=== PATIENT | male | born 1965 | race Caucasian/White ===

== ENCOUNTER → 2017-12-15 08:25 | Outpatient (CLI) | payer OTHER, SELFPAY ==
--- NOTE | 2017-12-15 08:25 | COLBX_PTH ---
PATIENT: PRADEEP VARGAS LOC: [facility] U#:[id number] AGE/SX: 59/M ROOM: RE12/15/[address]: Dr. Bo Heath MD : [id number] BED: DIS: SPEC #: [id number] RECD: 12/15/17 15:48 STATUS: HENNY LUCIAN #: [id number] GARO: 12/15/17 08:[address]: Bo Heath DEPT: SURGICAL PATHOLOGY RECD BY: Luly Willams ENTERED: 12/18/17 08:54 SP TYPE: COLON BX OTHR DR: Dr. Brittani Jordan, [facility] Tissues: COLON BIOPSY Procedures: Surgery Specimen Level IV HEADER OPERATION: Colon with biopsy PRE-OP DIAGNOSIS: Rectal pain TISSUE SUBMITTED: Hepatic flexure polyp, rule out adenoma MICROSCOPIC DIAGNOSIS Hepatic flexure polyp, biopsy: Fragments of colonic mucosa, no pathologic diagnosis. SJ:eliceo 9/11/18 MICROSCOPIC DESCRIPTION Slides are reviewed. GROSS DESCRIPTION Received in fixative is one container labeled with the patient's name and designated hepatic flexure. The specimen consists of multiple irregular fragments of light faust soft tissue that in aggregate measure 0.5 x 0.5 x 0.1 cm. The specimen is totally submitted in one cassette. / SJ:rg 12/18/17 TC:4 CPT: 13075
== END ==
PROVIDERS: Family Provider Internal Medicine; PCP Internal Medicine; Visit Provider Internal Medicine Gastroenterology
DX: K62.89 Other specified diseases of anus and rectum (principal)
CPT/HCPCS: 88305

== ENCOUNTER → 2018-01-12 10:04 | Outpatient (CLI) | payer OTHER, SELFPAY ==
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
== END ==
PROVIDERS: Family Provider Internal Medicine; PCP Internal Medicine; Referring Provider Nurse Practitioner; Visit Provider Nurse Practitioner
DX: K59.00 Constipation, unspecified (principal)
CPT/HCPCS: 74018

== ENCOUNTER 2018-03-04 14:28 | Emergency (ER) | payer OTHER, SELFPAY ==
[2018-03-04 14:29] VITALS: BP 152/94; PULSE 94; RESP 20; TEMP 36.6; O2SAT 97; BMI 31.1
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
[2018-03-04] MEDS: BACITRACIN 15 GM Tube 1 APPLIC TOPICAL (15:30)
[2018-03-04] MEDS: Diphth,Pertuss(Acell),Tet Vac 0.5 ML Vial IM (15:30)
== END 2018-03-04 17:09 | disposition home or self-care (01) ==
PROVIDERS: Emergency Provider Emergency Medicine; Family Provider Internal Medicine; PCP Internal Medicine
DX: T20.24XA Burn of second degree of nose (septum), initial encounter (principal); T20.212A Burn of second degree of left ear [any part, except ear drum], initial encounter; T28.0XXA Burn of mouth and pharynx, initial encounter; E78.00 Pure hypercholesterolemia, unspecified; F41.9 Anxiety disorder, unspecified; F32.9 Major depressive disorder, single episode, unspecified; Z72.0 Tobacco use; Z79.899 Other long term (current) drug therapy
CPT/HCPCS: 71046; 90715; 99283

== ENCOUNTER → 2018-03-20 09:21 | Outpatient (CLI) | payer OTHER, SELFPAY ==
[2018-03-04 14:29] VITALS: BMI 31.1
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
--- OUTSIDE RECORDS SUMMARY | 2018-05-06 08:30 | XMS RPT_ITS | Continuity of Care Document ---
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 regarding this patient's physical therapy, please feel free to call me at [phone]. Thank you for the referral of this patient. Sincerely, Maxwell degroot, PT, <Electronically signed by Maxwell Bhatti PT, ATC> 09/20/16 1145 CC: Brittani Jordan DO [facility] Signed 25-Aug-2016 Inital Evaluation (1) - PT Result: Comments: See Note; NOTES: [facility] Physical [facility] [address]. [address] [place], [place] [address] Fax REHABILITATION SERVICES INITIAL EVALUATION MR#: [id number] Acct: [id number] Name: PRADEEP VARGAS Rep #: [id number] : 1965 51 From: Maxwell Bhatti PT, ATC Referring Dr.: Brittani Jordan DO Status: REG RCR Insurance: [facility] Patient's Visit Information PRADEEP VARGAS is a 51 year old M referred to Physical Therapy by Brittani Jordan with a diagnosis of L shoulder pain. Date of Evaluation: 08/25/16 Physical Therapis t: Maxwell Bhatti PT, - Visit Plan Frequency: 2-3x /Week Duration: 3-6 weeks Plan: L shoulder rot cuff strengthening, AROM ex's, scap stab ex's, UBE, and HEP - Subjective Subjective: Pt reports his L shoulder has been sore for about 2 weeks. Pt reports his L UE will go numb when he is mowing the lawn. Pt reports his pain had an insidious onset in nature. Pt reports the nature of his job does requ kp him to have to use a lot of torquing motions. Pt works at [employer] and has for many years. 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 Pt notes he has occasional sleep diff secondary to pain. Pt reports he was unable to perform h is work durties and is off til the . 2/10 at rest, 6/10 at worst (work duties). Overhead activity really increases pain. - Pain L shoulder Pain Intensity (Out of 10): 2 Pain Intensity Range: 6 - Objective Neuro: B UE sensation is WNL to light touch. B bicepital reflex= 2/3. Palpation: Pt is very tender throughout the distribution of the supraspinatus tendon and the LHB tendon. No obvious defo rmity. ROM: R shoulder flex= 180, abd= 180, ER= 70, IR= WNL; L shoulder flex= 150, abd= 120, ER= 40, IR min hernandes. MMT: L shoulder flex and abd= 4-/5. All other B UE is 5/5 throughout. Special testing: Po s empty can, pos speeds. C/S repeated movements: No effect with protraction. Retraction provokes central spine pain - Goals Goal 1:: Decrease L shoulder pain x 50% to aid with IADL's Goal Time Frame: 4 -6 Weeks Goal 2:: Increase L shoulder strength x 1 grade to aid with work duties Goal Time Frame: 4-6 Weeks Goal 3:: ncrease L shoulder abd and flex ROM x 20-30 degrees to aid with overhead aciti vity G oal Time Frame: 2-4 Weeks Goal 4:: I with HEP Goal Time Frame: 4-6 Weeks - Rehabilitation Potential Physical Therapy Diagnosis: L shoulder pain, weakness, and limited ROM secondary to rot cuff syndrome Rehabilitation Potential: Good - Anticipated Interventions Patient/Client Instruction: Educate patient on: Condition, Plan of Care For the Purpose of:: To improve self management Therapeutic Exercise to Include: Strength training, Postural training, Active ROM, Scapular Strength/Stabilization For the Purpose of:: To decrease pain, To increase ROM, To improve muscle performance and motor function Cry otherapy (ice pack, ice massage): Yes Ultrasound (thermal/non thermal): Yes For the Purpose of:: To decrease pain Thank you for the opportunity to evaluate your patient. For Medicare and Medicare H [place] plans, please review the plan of care and approve it. It will need to be FAXED BACK to us at [phone] for Medicare purposes. Please let me know if there are questions or concerns regarding this plan of care. Physician Signature: Date: <Electronically signed by Maxwell Bhatti PT, ATC> 08/25/16 1838 CC: Brittani Jordan DO [facility] Signed For Medicare only, by signing this I certify the plan of care. Physicians Signature Date 05-Jun-2015 Chest PA and Lateral Result: Comments: See Note; NOTES: [facility] Imaging Services [address] [place] [address] [address] Chest PA and Lateral MR#: [id number] Acct: [id number] Name: Kamryn VARGAS Rep #: [id number] : 1965 M 49 From: Bradley Dias MD PCP: Brittani Jordan DO Status: REG CLI Study: Chest PA and Lateral Date of Exam: 06/05/15 Exam# [id number] Ordering Dr: Brittani Jordan DO STUDY: X-RAY CHEST REASON FOR EXAM: Male, 49 years old. History of asthma. TECHNIQUE: PA and lateral views of the chest. COMPARISON: Comparison is made with prior examination brent ed April 16, 2012. FINDINGS: The lungs are clear and expanded. There is no demonstrated pleural abnormality. Normal size heart. Normal mediastinum and jade. Normal visualized pulmonary arteries. Normal visualized aortic arch and descending thoracic aorta. There are diffuse degenerative changes of the visualized thoracic spine. Normal visualized ribs, clavicles, and shoulders. There is no demonstrated abnormality of the visualized soft tissue structures of the upper abdomen. IMPRESSION: Normal x-ray examinat ion of the chest. Electronically Signed: Bradley Dias MD at 10:43 EST Tel [phone], Service support [phone], RAD/Chest PA and Latera l IMPRESSION: Normal x-ray examination of the chest. Electronically Signed: Bradley Dias MD at 10:43 EST Tel [phone], Service support [phone], CC: Brittani Jordan DO [facility] Director: Signed 05-Jun-2015 ELECTROCARDIOGRAM, COMPLETE (ECG) (25051) Comments: nsr no acute chg Result: [MEASUREMENTS ANALYSIS] Date of Test: 06/05/2015 09:32:10; Heart Rate: 64; WA Interval: 128; QRS: 104; QT Interval: 402; Corrected QT Interval (QTc): 409; P Wave Drake: 45; QRS Wave Drake: 60; T Wave Drake : 51; Blood Pressure: 120/76 [ECG DIAGNOSTIC STATEMENTS] Date of Test: 06/05/2015 09:32:10; Summary: Sinus Rhythm WITHIN NORMAL LIMITS 05-Jun-2015 Spirometry (13281) Result: 29-Aug-2013 PT Discharge Summary Result: Comments: See Note; NOTES: [facility] Physical [facility] [address] [place] [address]. [address] [place] [address] Fax REHABILITATION SERVICES DISCHARGE SUMMARY MR#: [id number] Acct: [id number] Name: PRADEEP VARGAS Rep #: [id number] : 1965 48 From: Rodolfo Starr Referring Dr.: Brittani Jordan DO Status: PRE RCR Eval Date: Dischar ge Date: DATE OF SERVICE: The patient by the name of Pradeep Vargas was seen in our clinic with a diagnosis of low back muscle spasm. The patient received initial evaluation only. We educated the p atient on his condition. Modalities provided. We educated on Ben exercises. We attempted to call the patient, but he did not return to physical therapy after his first initial consultation aft er he received therapy for continuation of therapy. He is discharged from our care. Otherwise, once again, thank you for this referral. Rodolfo Starr PT T: ADITYA JOB: [id number] <Electr onically signed by Rodolfo Starr > 08/29/13 1412 CC: Signed 30-Jul-2013 Abdomen/Pelvis without Cont Result: Comments: See Note; NOTES: [facility] Imaging Services [address] [place] [address] CAT Scan Report MR#: [id number] Acct: [id number] Name: PRADEEP VARGAS Rep #: [id number] : 1965 M 48 From: Jimmie Garcia MD PCP: Brittani Jordan DO Status: REG CLI Study: Abdomen/Pelvis without Cont Date of Exam: 07/30/13 Exam# [id number] Ordering Dr: Brittani Jordan DO STUDY : CT ABDOMEN AND PELVIS WITHOUT CONTRAST REASON FOR EXAM: Male, 48 years old. Back and flank pain RADIATION DOSAGE (If Supplied By Facility): CTDIvol = ( ) mGy, DLP = ( ) mGycm TECHNIQUE: Transax ial images were obtained from the dome of the diaphragm to the symphysis pubis without oral contrast, and without intravenous contrast. Sagittal and coronal images were reconstructed. COMPARISON: No ne. FINDINGS: The visualized lung bases are unremarkable. The visualized portions of the heart are within normal limits. Normal liver. Normal gallbladder and e xtrahepatic biliary system. Normal spleen. Normal pancreas. Normal bilateral adrenal glands. Normal right kidney. Normal left kidney. Normal visualized stomach. There is an ileus of the small int estine. Normal colon. The appendix is visualized and appears normal. Appendix best seen on axial image 105 Normal abdominal aorta. Normal inferior vena cava. Scattered subcentimeter mesenteric and retroperitoneal lymph nodes Normal urinary bladder. Normal abdominal wall. Normal osseous structures. IMPRESSION: No obstructive uropathy Small bowel ileus No suspicious solid organ abnormalities No CT evidence of an acute inflammatory process Electronically Signed: Brandan Garcia MD at 10:27 EDT , Service support , CC: Brittani Jordan DO [facility] Director: Signed 29-Jul-2013 Inital Evaluation - PT Result: Comments: See Note; NOTES: [facility] Physical [facility] [address] [place] [address] Fax REHABILITATION SERVICES INITIAL EVALUATION MR#: [id number] Acct: [id number] Name: PRADEEP VARGAS Rep #: [id number] : 1965 48 From: Rodolfo Starr Referring Dr.: Brittani Jordan DO Status: REG RCR Insurance: [employer] Eval Date: DATE OF SERVICE: REFERRING PHYSICIAN: Dr. Brittani Jordan. SUBJECTIVE: This patient by the name of Pradeep Vargas who was born on 1965 was referred to physical [facility] with diagnoses of muscle spasm and low back pain. This patient has a history of low back pain for many years, but most recently, this past week, the patient developed low back pain, as well as some stiffness. He woke up in the morning with some stiffness in his low back and radiated to his pelvis area. He states that he has 5/10 pain today. He denies numbness/tingling. Sitting makes it wor se. Bending makes it worse. Walking makes it worse. Standing makes it somewhat better. He sleeps on his belly, but it will disturb his sleep, on a firm mattress. He has no treatments. History of mu scle spasms, straining may increase his back pain. Gait is normal. Bladder is normal. No abnormal night pain, unexplained weight loss, major accidents. No x -rays were done. No medication was prescri bed, except for Valium and some anti- inflammatory medication. Goals are to have no more back pain and get stronger. PAST MEDICAL HISTORY: Elevated cholesterol. SOCIAL HISTORY: . 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 OBJECTIVE: OBSERVATION OF POSTURE: Sits with reduced lordosis, rounded shoulders. PALPATION: Some tenderness around right lumbar paraspinals, com pared to left, multifidus, as well as, rectus spina muscle group. NEUROLOGICAL: Denies numbness/tingling. Myotomes are intact. Reflexes symmetrically elicited L3-L4, L4-L5, L5-S1. FLEXIBILITY: Ham strings minimal loss. Piriformis minimal loss. STRENGTH: Lower extremities, quadriceps, hamstrings, dorsiflexors, plantar flexors, great toe extensors, hip flexors are 5/5. Myotomes are equally intac t. Movement loss of lumbar spine, flexion minimal loss, extension within functional limits, side glides minimal loss. PRETEST PAIN: Symmtrical lumbosacral pain or lumbar pain. Flexion standing incr eases symptoms slightly worse. Extension in standing decreased symptoms, although stiffness at end range, although no better, stiffness at end range, for repeat extension lying, no better. There is no mechanical response with increased range of motion. Symmetries PSIS, ASIS, iliac crest are symmetrically intact. Straight leg raise is negative. Intact heel-toe walking, negative. PROVISIONAL DIAGNOSIS: The patient appears to have a symmetrical central derangement with symptoms consistent with bending over makes symptoms worse. PROBLEM LIST: 1. Decreased home exercise program. 2. Decr eased posture body mechanics. 3. Increased low back pain. 4. Limitation of normal functional activities, standing, walking, job demands, especially ____ in a forward position. 5. Decreased prophyla xis. GOALS: 1. The patient will be independent with home exercise program to self-manage symptoms. 2. The patient will be independent with posture body mechanics with all lifting techniques. 3. T he patient to reduce low back pain by at least 50 percent or greater to improve function. PLAN: Plan of care was reviewed with the patient. We discussed with the patient basic anatomy of the lumba r spine, mechanism of pain. We discussed with the patient the cumulative effect of flexion and how it compromises the back. We educated the patient to perform repeat extension in lying or standing b ack extensions x10 repetitions every hour to monitor symptoms. Then, the patient received stimulation moist hot pack x15 minutes. Plan is to see this patient twice a week for 4 weeks focusing on home exercise program, posture exercises, dynamic lumbar stabilization, abdominal back strengthening, Ben exercise, manual therapy, modalities, and patient education. Rodolfo Starr PT T: ADITYA JOB: [id number] <Electronically signed by Rodolfo Starr > 07/29/13 1552 CC: Signed For Medicare only, by signing this I certify the plan of care. Physicians Signature Date 29-Jul-2013 L/S Spine Min 4 Views Result: Comments: See Note; NOTES: [facility] Imaging Services [address] [place] [address] Radiology Report MR#: [id number] Acct: [id number] Name: PRADEEP VARGAS Rep #: [id number] : 1965 M 48 From: Jimmie Garcia MD PCP: Brittani Jordan DO Status: REG CLI Study: L/S Spine Min 4 Views Date of Exam: 07/29/13 Exam# [id number] Ordering Dr: Janneth Davenport STUDY: X-RAY - LUM BAR SPINE REASON FOR EXAM: Male, 48 years old. Low back pain TECHNIQUE: 5 view(s) of the lumbar spine were obtained. COMPARISON: None FINDINGS: Normal lumba r lordosis. There is no substantial scoliosis. There is a normal alignment of the vertebrae. Normal vertebral bodies and endplates. Normal disc space heights. There is no demonstrated fracture. Evid ence of limbus vertebra at L3-L4 and L5. The soft tissue structures are unremarkable. 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 Comments: 08/08/11 Status: Active Smoking Status Name Dates Details Former smoker Vital Signs Date Test Result Details :43 Temperature 96.8 f Comments: Method: Temporal Pulse 66 /min Comments: Pattern: Regular Respiration Rate 16 /min Comments: Pattern: Unlabored O2 SAT 99 % Comments: Room air BP Systolic 134 mm[Hg] Comments: Patient Position: Sitting; Cuff Location: Left Arm; Cuff Size: Standard BP Diastolic 84 mm[Hg] Comments: Patient Position: Sitting; Cuff Location: Left Arm; Cuff Size: Standard Weight 182.5 lb Height 67 in Body Mass Index Calculated 28.58 kg/m2 Body Surface Area Calculated 1.95 m2 :00 Temperature 98.2 f Comments: Method: Temporal Pulse 70 /min Comments: Pattern: Regular Respiration Rate 16 /min Comments: Pattern: Unlabored O2 SAT 94 % Comments: Room air BP Systolic 134 mm[Hg] Comments: Patient Position: Sitting; Cuff Location: Left Arm; Cuff Size: Standard BP Diastolic 70 mm[Hg] Comments: Patient Position: Sitting; Cuff Location: Left Arm; Cuff Size: Standard Weight 182.5 lb Height 67 in Body Mass Index Calculated 28.58 kg/m2 Body Surface Area Calculated 1.95 m2 :49 Pulse 80 /min Comments: Pattern: Regular Respiration Rate 18 /min Comments: Pattern: Unlabored O2 SAT 98 % Comments: Room air BP Systolic 128 mm[Hg] Comments: Patient Position: Sitting; Cuff Location: Left Arm; Cuff Size: Standard BP Diastolic 82 mm[Hg] Comments: Patient Position: Sitting; Cuff Location: Left Arm; Cuff Size: Standard Weight 182.5 lb Height 67 in Body Mass Index Calculated 28.58 kg/m2 Body Surface Area Calculated 1.95 m2 :57 Temperature 98.1 f Pulse 88 /min Comments: Pattern: Regular Respiration Rate 16 /min Comments: Pattern: Unlabored O2 SAT 96 % Comments: Room air BP Systolic 124 mm[Hg] Comments: Patient Position: Sitting; Cuff Location: Left Arm; Cuff Size: Standard BP Diastolic 78 mm[Hg] Comments: Patient Position: Sitting; Cuff Location: Left Arm; Cuff Size: Standard Weight 190.375 lb Height 67 in Body Mass Index Calculated 29.82 kg/m2 Body Surface Area Calculated 1.98 m2 [id number] Pulse 84 /min Comments: Pattern: Regular Respiration Rate 18 /min Comments: Pattern: Unlabored O2 SAT 98 % Comments: Room air BP Systolic 162 mm[Hg] Comments: Patient Position: Sitting; Cuff Location: Left Arm; Cuff Size: Large BP Diastolic 82 mm[Hg] Comments: Patient Position: Sitting; Cuff Location: Left Arm; Cuff Size: Large Weight 190.375 lb Height 67 in Body Mass Index Calculated 29.82 kg/m2 Body Surface Area Calculated 1.98 m2 :19 Temperature 97.5 f Pulse 76 /min Comments: Pattern: Regular Respiration Rate 16 /min Comments: Pattern: Unlabored O2 SAT 98 % Comments: Room air BP Systolic 130 mm[Hg] Comments: Patient Position: Sitting; Cuff Location: Left Arm; Cuff Size: Standard BP Diastolic 84 mm[Hg] Comments: Patient Position: Sitting; Cuff Location: Left Arm; Cuff Size: Standard Weight 188.125 lb Height 67 in Body Mass Index Calculated 29.46 kg/m2 Body Surface Area Calculated 1.97 m2 :26 Pulse 81 /min Comments: Pattern: Regular Respiration Rate 18 /min Comments: Pattern: Unlabored O2 SAT 96 % Comments: Room air BP Systolic 138 mm[Hg] Comments: Patient Position: Sitting; Cuff Location: Left Arm; Cuff Size: Large BP Diastolic 80 mm[Hg] Comments: Patient Position: Sitting; Cuff Location: Left Arm; Cuff Size: Large Weight 188 lb Height 67 in Body Mass Index Calculated 29.44 kg/m2 Body Surface Area Calculated 1.97 m2 :29 Pulse 84 /min Comments: Pattern: Regular Respiration Rate 18 /min Comments: Pattern: Unlabored O2 SAT 97 % Comments: Room air BP Systolic 116 mm[Hg] Comments: Patient Position: Sitting; Cuff Location: Left Arm; Cuff Size: Standard BP Diastolic 80 mm[Hg] Comments: Patient Position: Sitting; Cuff Location: Left Arm; Cuff Size: Standard Weight 185.375 lb Height 67 in Body Mass Index Calculated 29.03 kg/m2 Body Surface Area Calculated 1.96 m2 :36 Temperature 98.2 f Pulse 91 /min Comments: Pattern: Regular Respiration Rate 17 /min Comments: Pattern: Unlabored O2 SAT 96 % Comments: Room air BP Systolic 106 mm[Hg] Comments: Patient Position: Sitting; Cuff Location: Left Arm; Cuff Size: Standard BP Diastolic 76 mm[Hg] Comments: Patient Position: Sitting; Cuff Location: Left Arm; Cuff Size: Standard Weight 185.375 lb Height 67 in Body Mass Index Calculated 29.03 kg/m2 Body Surface Area Calculated 1.96 m2 :10 Temperature 98 f Pulse 65 /min Comments: Pattern: Regular Respiration Rate 16 /min Comments: Pattern: Unlabored O2 SAT 98 % Comments: Room air BP Systolic 130 mm[Hg] Comments: Patient Position: Sitting; Cuff Location: Left Arm; Cuff Size: Standard BP Diastolic 72 mm[Hg] Comments: Patient Position: Sitting; Cuff Location: Left Arm; Cuff Size: Standard Weight 187.25 lb Height 67 in Body Mass Index Calculated 29.33 kg/m2 Body Surface Area Calculated 1.97 m2 :54 Pulse 65 /min Comments: Pattern: Regular Respiration Rate 18 /min Comments: Pattern: Unlabored O2 SAT 99 % Comments: Room air BP Systolic 128 mm[Hg] Comments: Patient Position: Sitting; Cuff Location: Left Arm; Cuff Size: Large BP Diastolic 80 mm[Hg] Comments: Patient Position: Sitting; Cuff Location: Left Arm; Cuff Size: Large Weight 184.25 lb Height 67 in Body Mass Index Calculated 28.86 kg/m2 Body Surface Area Calculated 1.95 m2 :00 Temperature 97.9 f Comments: Method: Temporal Pulse 84 /min Comments: Pattern: Regular Respiration Rate 18 /min Comments: Pattern: Unlabored O2 SAT 97 % Comments: Room air BP Systolic 120 mm[Hg] Comments: Patient Position: Sitting; Cuff Location: Left Arm; Cuff Size: Large BP Diastolic 82 mm[Hg] Comments: Patient Position: Sitting; Cuff Location: Left Arm; Cuff Size: Large Weight 186.375 lb Height 67 in Body Mass Index Calculated 29.19 kg/m2 Body Surface Area Calculated 1.96 m2 :10 Temperature 97.8 f Pulse 89 /min Comments: Pattern: Regular Respiration Rate 18 /min Comments: Pattern: Unlabored O2 SAT 98 % Comments: Room air BP Systolic 132 mm[Hg] Comments: Patient Position: Sitting; Cuff Location: Left Arm; Cuff Size: Standard BP Diastolic 84 mm[Hg] Comments: Patient Position: Sitting; Cuff Location: Left Arm; Cuff Size: Standard Weight 186.375 lb Height 67 in Body Mass Index Calculated 29.19 kg/m2 Body Surface Area Calculated 1.96 m2 :15 Pulse 75 /min Comments: Pattern: Regular Respiration Rate 18 /min Comments: Pattern: Unlabored O2 SAT 96 % Comments: Room air BP Systolic 120 mm[Hg] Comments: Patient Position: Sitting; Cuff Location: Left Arm; Cuff Size: Large BP Diastolic 76 mm[Hg] Comments: Patient Position: Sitting; Cuff Location: Left Arm; Cuff Size: Large Weight 186.375 lb Height 67 in Body Mass Index Calculated 29.19 kg/m2 Body Surface Area Calculated 1.96 m2 :05 Temperature 97.8 f Pulse 91 /min Comments: Pattern: Regular Respiration Rate 18 /min Comments: Pattern: Unlabored O2 SAT 96 % Comments: Room air BP Systolic 124 mm[Hg] Comments: Patient Position: Sitting; Cuff Location: Left Arm; Cuff Size: Standard BP Diastolic 82 mm[Hg] Comments: Patient Position: Sitting; Cuff Location: Left Arm; Cuff Size: Standard Weight 184.125 lb Height 67 in Body Mass Index Calculated 28.84 kg/m2 Body Surface Area Calculated 1.95 m2 :11 Temperature 99.2 f Pulse 88 /min Comments: Pattern: Regular Respiration Rate 17 /min Comments: Pattern: Unlabored O2 SAT 98 % Comments: Room air BP Systolic 124 mm[Hg] Comments: Patient Position: Sitting; Cuff Location: Left Arm; Cuff Size: Standard BP Diastolic 82 mm[Hg] Comments: Patient Position: Sitting; Cuff Location: Left Arm; Cuff Size: Standard Weight 184.125 lb Height 67 in Body Mass Index Calculated 28.84 kg/m2 Body Surface Area Calculated 1.95 m2 :20 Pulse 70 /min Comments: Pattern: Regular Respiration Rate 20 /min Comments: Pattern: Unlabored O2 SAT 98 % Comments: Room air BP Systolic 138 mm[Hg] Comments: Patient Position: Sitting; Cuff Location: Left Arm; Cuff Size: Large BP Diastolic 80 mm[Hg] Comments: Patient Position: Sitting; Cuff Location: Left Arm; Cuff Size: Large Weight 184.125 lb Height 67 in Body Mass Index Calculated 28.84 kg/m2 Body Surface Area Calculated 1.95 m2 :35 Temperature 96.6 f Comments: Method: Oral Pulse 72 /min Comments: Pattern: Regular Respiration Rate 18 /min Comments: Pattern: Unlabored O2 SAT 98 % Comments: Room air BP Systolic 120 mm[Hg] Comments: Patient Position: Sitting; Cuff Location: Left Arm; Cuff Size: Large BP Diastolic 78 mm[Hg] Comments: Patient Position: Sitting; Cuff Location: Left Arm; Cuff Size: Large Weight 184.1875 lb Height 67 in Body Mass Index Calculated 28.85 kg/m2 Body Surface Area Calculated 1.95 m2 :15 Temperature 98.8 f Comments: Method: Oral Pulse 90 /min Comments: Pattern: Regular Respiration Rate 16 /min O2 SAT 98 % Comments: Room air BP Systolic 130 mm[Hg] Comments: Patient Position: Sitting; Cuff Location: Left Arm; Cuff Size: Standard BP Diastolic 82 mm[Hg] Comments: Patient Position: Sitting; Cuff Location: Left Arm; Cuff Size: Standard Weight 178.4375 lb Height 67 in Body Mass Index Calculated 27.95 kg/m2 Body Surface Area Calculated 1.93 m2 :53 Temperature 98.1 f Comments: Method: Oral Pulse 80 /min Comments: Pattern: Regular Respiration Rate 16 /min Comments: Pattern: Unlabored O2 SAT 98 % Comments: Room air BP Systolic 114 mm[Hg] Comments: Patient Position: Sitting; Cuff Location: Left Arm; Cuff Size: Standard BP Diastolic 70 mm[Hg] Comments: Patient Position: Sitting; Cuff Location: Left Arm; Cuff Size: Standard Weight 178.4375 lb Height 67 in Body Mass Index Calculated 27.95 kg/m2 Body Surface Area Calculated 1.93 m2 :19 Temperature 97.8 f Comments: Method: Oral Pulse 76 /min Comments: Pattern: Regular Respiration Rate 16 /min O2 SAT 98 % Comments: Room air BP Systolic 120 mm[Hg] Comments: Patient Position: Sitting; Cuff Location: Left Arm; Cuff Size: Standard BP Diastolic 70 mm[Hg] Comments: Patient Position: Sitting; Cuff Location: Left Arm; Cuff Size: Standard Weight 182.4375 lb Height 67 in Body Mass Index Calculated 28.57 kg/m2 Body Surface Area Calculated 1.94 m2 :13 Temperature 97.6 f Comments: Method: Temporal Pulse 86 /min Comments: Pattern: Regular Respiration Rate 16 /min Comments: Pattern: Unlabored O2 SAT 99 % Comments: Room air BP Systolic 116 mm[Hg] Comments: Patient Position: Sitting; Cuff Location: Left Arm; Cuff Size: Standard BP Diastolic 74 mm[Hg] Comments: Patient Position: Sitting; Cuff Location: Left Arm; Cuff Size: Standard Weight 182.4375 lb Height 67 in Body Mass Index Calculated 28.57 kg/m2 Body Surface Area Calculated 1.94 m2 :30 Temperature 98.1 f Comments: Method: Oral Pulse 18 /min Comments: Pattern: Regular Respiration Rate 20 /min Comments: Pattern: Unlabored O2 SAT 98 % Comments: Room air BP Systolic 130 mm[Hg] Comments: Patient Position: Sitting; Cuff Location: Left Arm; Cuff Size: Large BP Diastolic 72 mm[Hg] Comments: Patient Position: Sitting; Cuff Location: Left Arm; Cuff Size: Large Weight 182.4375 lb Height 67 in Body Mass Index Calculated 28.57 kg/m2 Body Surface Area Calculated 1.94 m2 :47 Temperature 100.2 f Comments: Method: Oral Pulse 89 /min Comments: Pattern: Regular Respiration Rate 16 /min Comments: Pattern: Unlabored O2 SAT 98 % Comments: Room air BP Systolic 122 mm[Hg] Comments: Patient Position: Sitting; Cuff Location: Left Arm; Cuff Size: Standard BP Diastolic 68 mm[Hg] Comments: Patient Position: Sitting; Cuff Location: Left Arm; Cuff Size: Standard Weight 182.4375 lb Height 67 in Body Mass Index Calculated 28.57 kg/m2 Body Surface Area Calculated 1.94 m2 :32 Temperature 99.8 f Comments: Method: Temporal Pulse 76 /min Comments: Pattern: Regular Respiration Rate 16 /min Comments: Pattern: Unlabored O2 SAT 98 % Comments: Room air BP Systolic 140 mm[Hg] Comments: Patient Position: Sitting; Cuff Location: Left Arm; Cuff Size: Standard BP Diastolic 74 mm[Hg] Comments: Patient Position: Sitting; Cuff Location: Left Arm; Cuff Size: Standard Weight 182.4375 lb Height 67 in Body Mass Index Calculated 28.57 kg/m2 Body Surface Area Calculated 1.94 m2 :28 Pulse 60 /min Comments: Pattern: Regular Respiration Rate 18 /min Comments: Pattern: Unlabored BP Systolic 122 mm[Hg] Comments: Patient Position: Sitting; Cuff Location: Left Arm; Cuff Size: Large BP Diastolic 78 mm[Hg] Comments: Patient Position: Sitting; Cuff Location: Left Arm; Cuff Size: Large Weight 182.4375 lb Height 67 in Body Mass Index Calculated 28.57 kg/m2 Body Surface Area Calculated 1.94 m2 :49 Temperature 98.7 f Comments: Method: Oral Pulse 88 /min Comments: Pattern: Regular Respiration Rate 20 /min Comments: Pattern: Unlabored BP Systolic 122 mm[Hg] Comments: Patient Position: Sitting; Cuff Location: Left Arm; Cuff Size: Large BP Diastolic 60 mm[Hg] Comments: Patient Position: Sitting; Cuff Location: Left Arm; Cuff Size: Large Weight 200.25 lb Height 67 in Body Mass Index Calculated 31.36 kg/m2 Body Surface Area Calculated 2.02 m2 :36 Comments: up 9 pounds Temperature 97.9 f Comments: Method: Oral Pulse 70 /min Comments: Pattern: Regular Respiration Rate 18 /min Comments: Pattern: Unlabored BP Systolic 112 mm[Hg] Comments: Patient Position: Sitting; Cuff Location: Left Arm; Cuff Size: Standard BP Diastolic 74 mm[Hg] Comments: Patient Position: Sitting; Cuff Location: Left Arm; Cuff Size: Standard Weight 193.2 lb Height 67 in Body Mass Index Calculated 30.26 kg/m2 Body Surface Area Calculated 1.99 m2 :09 Pulse 60 /min Comments: Pattern: Regular Respiration Rate 18 /min Comments: Pattern: Unlabored BP Systolic 122 mm[Hg] Comments: Patient Position: Sitting; Cuff Location: Left Arm; Cuff Size: Large BP Diastolic 78 mm[Hg] Comments: Patient Position: Sitting; Cuff Location: Left Arm; Cuff Size: Large Weight 184.0625 lb Height 67 in Body Mass Index Calculated 28.83 kg/m2 Body Surface Area Calculated 1.95 m2 :15 Pulse 80 /min Comments: Pattern: Regular Respiration Rate 20 /min Comments: Pattern: Unlabored BP Systolic 138 mm[Hg] Comments: Patient Position: Sitting; Cuff Location: Left Arm; Cuff Size: Large BP Diastolic 70 mm[Hg] Comments: Patient Position: Sitting; Cuff Location: Left Arm; Cuff Size: Large Weight 195.0625 lb Height 67 in Body Mass Index Calculated 30.55 kg/m2 Body Surface Area Calculated 2 m2 :35 Temperature 98.6 f Comments: Method: Oral Pulse 68 /min Comments: Pattern: Regular Respiration Rate 18 /min Comments: Pattern: Unlabored BP Systolic 126 mm[Hg] Comments: Patient Position: Sitting; Cuff Location: Left Arm; Cuff Size: Standard BP Diastolic 82 mm[Hg] Comments: Patient Position: Sitting; Cuff Location: Left Arm; Cuff Size: Standard Weight 198.9 lb Height 67 in Body Mass Index Calculated 31.15 kg/m2 Body Surface Area Calculated 2.02 m2 :43 Pulse 60 /min Comments: Pattern: Regular Respiration Rate 20 /min Comments: Pattern: Unlabored BP Systolic 122 mm[Hg] Comments: Patient Position: Sitting; Cuff Location: Left Arm; Cuff Size: Large BP Diastolic 70 mm[Hg] Comments: Patient Position: Sitting; Cuff Location: Left Arm; Cuff Size: Large Weight 195.125 lb Height 67 in Body Mass Index Calculated 30.56 kg/m2 Body Surface Area Calculated 2 m2 :34 Temperature 97.9 f Comments: Method: Oral Pulse 74 /min Comments: Pattern: Regular Respiration Rate 18 /min Comments: Pattern: Unlabored BP Systolic 118 mm[Hg] Comments: Patient Position: Sitting; Cuff Location: Left Arm; Cuff Size: Standard BP Diastolic 78 mm[Hg] Comments: Patient Position: Sitting; Cuff Location: Left Arm; Cuff Size: Standard Weight 191 lb Height 67 in Body Mass Index Calculated 29.91 kg/m2 Body Surface Area Calculated 1.98 m2 :26 Temperature 97.9 f Comments: Method: Oral Pulse 80 /min Comments: Pattern: Regular Respiration Rate 16 /min Comments: Pattern: Unlabored BP Systolic 120 mm[Hg] Comments: Patient Position: Sitting; Cuff Location: Left Arm; Cuff Size: Standard BP Diastolic 84 mm[Hg] Comments: Patient Position: Sitting; Cuff Location: Left Arm; Cuff Size: Standard Weight 196.5 lb Height 67 in Body Mass Index Calculated 30.78 kg/m2 Body Surface Area Calculated 2.01 m2 :39 Pulse 80 /min Comments: Pattern: Regular Respiration Rate 20 /min Comments: Pattern: Unlabored BP Systolic 118 mm[Hg] Comments: Patient Position: Sitting; Cuff Location: Left Arm; Cuff Size: Large BP Diastolic 80 mm[Hg] Comments: Patient Position: Sitting; Cuff Location: Left Arm; Cuff Size: Large Weight 196.5 lb Height 67 in Body Mass Index Calculated 30.78 kg/m2 Body Surface Area Calculated 2.01 m2 :27 Pulse 68 /min Comments: Pattern: Regular Respiration Rate 18 /min Comments: Pattern: Unlabored BP Systolic 122 mm[Hg] Comments: Patient Position: Sitting; Cuff Location: Left Arm; Cuff Size: Large BP Diastolic 82 mm[Hg] Comments: Patient Position: Sitting; Cuff Location: Left Arm; Cuff Size: Large Weight 197.5 lb Height 67 in Body Mass Index Calculated 30.93 kg/m2 Body Surface Area Calculated 2.01 m2 :33 Pulse 68 /min Comments: Pattern: Regular Respiration Rate 20 /min Comments: Pattern: Unlabored BP Systolic 124 mm[Hg] Comments: Patient Position: Sitting; Cuff Location: Left Arm; Cuff Size: Large BP Diastolic 82 mm[Hg] Comments: Patient Position: Sitting; Cuff Location: Left Arm; Cuff Size: Large Weight 197.1875 lb Height 67 in Body Mass Index Calculated 30.88 kg/m2 Body Surface Area Calculated 2.01 m2 :31 Pulse 64 /min Comments: Pattern: Regular Respiration Rate 20 /min Comments: Pattern: Unlabored BP Systolic 124 mm[Hg] Comments: Patient Position: Sitting; Cuff Location: Left Arm; Cuff Size: Large BP Diastolic 64 mm[Hg] Comments: Patient Position: Sitting; Cuff Location: Left Arm; Cuff Size: Large Weight 195.25 lb Height 67 in Body Mass Index Calculated 30.58 kg/m2 Body Surface Area Calculated 2 m2 :11 Temperature 98.7 f Comments: Method: Oral Pulse 76 /min Comments: Pattern: Regular Respiration Rate 18 /min Comments: Pattern: Unlabored O2 SAT 98 % Comments: Room air BP Systolic 142 mm[Hg] Comments: Patient Position: Sitting; Cuff Location: Left Arm; Cuff Size: Standard BP Diastolic 82 mm[Hg] Comments: Patient Position: Sitting; Cuff Location: Left Arm; Cuff Size: Standard Weight 189 lb :53 Pulse 80 /min Comments: Pattern: Regular Respiration Rate 16 /min Comments: Pattern: Unlabored O2 SAT 97 % Comments: Room air BP Systolic 124 mm[Hg] Comments: Patient Position: Sitting; Cuff Location: Left Arm; Cuff Size: Standard BP Diastolic 80 mm[Hg] Comments: Patient Position: Sitting; Cuff Location: Left Arm; Cuff Size: Standard Weight 189 lb :24 Pulse 72 /min Comments: Pattern: Regular Respiration Rate 20 /min Comments: Pattern: Unlabored BP Systolic 112 mm[Hg] Comments: Patient Position: Sitting; Cuff Location: Left Arm; Cuff Size: Large BP Diastolic 82 mm[Hg] Comments: Patient Position: Sitting; Cuff Location: Left Arm; Cuff Size: Large Weight 190 lb :25 Pulse 80 /min Comments: Pattern: Regular Respiration Rate 20 /min Comments: Pattern: Unlabored BP Systolic 122 mm[Hg] Comments: Patient Position: Sitting; Cuff Location: Left Arm; Cuff Size: Large BP Diastolic 80 mm[Hg] Comments: Patient Position: Sitting; Cuff Location: Left Arm; Cuff Size: Large Weight 188.4375 lb Height 67 in Body Mass Index Calculated 29.51 kg/m2 Body Surface Area Calculated 1.97 m2 :39 Pulse 68 /min Comments: Pattern: Regular Respiration Rate 20 /min Comments: Pattern: Unlabored BP Systolic 132 mm[Hg] Comments: Patient Position: Sitting; Cuff Location: Left Arm; Cuff Size: Large BP Diastolic 64 mm[Hg] Comments: Patient Position: Sitting; Cuff Location: Left Arm; Cuff Size: Large Weight 192.3125 lb Height 67 in Body Mass Index Calculated 30.12 kg/m2 Body Surface Area Calculated 1.99 m2 :14 Pulse 76 /min Comments: Pattern: Regular Respiration Rate 20 /min Comments: Pattern: Unlabored BP Systolic 124 mm[Hg] Comments: Patient Position: Sitting; Cuff Location: Left Arm; Cuff Size: Large BP Diastolic 78 mm[Hg] Comments: Patient Position: Sitting; Cuff Location: Left Arm; Cuff Size: Large Weight 190.25 lb Height 67 in Body Mass Index Calculated 29.8 kg/m2 Body Surface Area Calculated 1.98 m2 :54 Pulse 72 /min Comments: Pattern: Regular Respiration Rate 20 /min Comments: Pattern: Unlabored BP Systolic 124 mm[Hg] Comments: Patient Position: Sitting; Cuff Location: Left Arm; Cuff Size: Standard BP Diastolic 76 mm[Hg] Comments: Patient Position: Sitting; Cuff Location: Left Arm; Cuff Size: Standard Weight 190.25 lb Height 67 in Body Mass Index Calculated 29.8 kg/m2 Body Surface Area Calculated 1.98 m2 :29 Pulse 64 /min Comments: Pattern: Regular Respiration Rate 20 /min Comments: Pattern: Unlabored BP Systolic 124 mm[Hg] Comments: Patient Position: Sitting; Cuff Location: Left Arm; Cuff Size: Large BP Diastolic 78 mm[Hg] Comments: Patient Position: Sitting; Cuff Location: Left Arm; Cuff Size: Large Weight 190.25 lb Height 67 in Body Mass Index Calculated 29.8 kg/m2 Body Surface Area Calculated 1.98 m2 :03 Pulse 80 /min Comments: Pattern: Regular Respiration Rate 16 /min Comments: Pattern: Unlabored BP Systolic 112 mm[Hg] Comments: Patient Position: Supine; Cuff Location: Left Arm; Cuff Size: Standard BP Diastolic 70 mm[Hg] Comments: Patient Position: Supine; Cuff Location: Left Arm; Cuff Size: Standard Weight 195.0625 lb Height 67 in Body Mass Index Calculated 30.55 kg/m2 Body Surface Area Calculated 2 m2 Head Circumference 0.00 cm :39 Pulse 72 /min Comments: Pattern: Regular Respiration Rate 16 /min Comments: Pattern: Unlabored BP Systolic 118 mm[Hg] Comments: Patient Position: Supine; Cuff Location: Left Arm; Cuff Size: Standard BP Diastolic 74 mm[Hg] Comments: Patient Position: Supine; Cuff Location: Left Arm; Cuff Size: Standard Weight 192.0625 lb Height 67 in Body Mass Index Calculated 30.08 kg/m2 Body Surface Area Calculated 1.99 m2 Head Circumference 0.00 cm :26 Pulse 72 /min Comments: Pattern: Regular Respiration Rate 20 /min Comments: Pattern: Unlabored BP Systolic 128 mm[Hg] Comments: Patient Position: Sitting; Cuff Location: Left Arm; Cuff Size: Large BP Diastolic 78 mm[Hg] Comments: Patient Position: Sitting; Cuff Location: Left Arm; Cuff Size: Large Weight 192.0625 lb Height 67 in Body Mass Index Calculated 30.08 kg/m2 Body Surface Area Calculated 1.99 m2 Head Circumference 0.00 cm :45 Pulse 88 /min Comments: Pattern: Regular Respiration Rate 18 /min Comments: Pattern: Unlabored BP Systolic 128 mm[Hg] Comments: Patient Position: Sitting; Cuff Location: Left Arm; Cuff Size: Standard BP Diastolic 78 mm[Hg] Comments: Patient Position: Sitting; Cuff Location: Left Arm; Cuff Size: Standard Weight 186.5 lb Height 67 in Body Mass Index Calculated 29.21 kg/m2 Body Surface Area Calculated 1.96 m2 Head Circumference 0.00 cm :37 Pulse 80 /min Comments: Pattern: Regular Respiration Rate 20 /min Comments: Pattern: Unlabored BP Systolic 122 mm[Hg] Comments: Patient Position: Sitting; Cuff Location: Left Arm; Cuff Size: Large BP Diastolic 70 mm[Hg] Comments: Patient Position: Sitting; Cuff Location: Left Arm; Cuff Size: Large Weight 186.5 lb Height 67 in Body Mass Index Calculated 29.21 kg/m2 Body Surface Area Calculated 1.96 m2 Head Circumference 0.00 cm :59 Temperature 98.2 f Comments: Method: Oral Pulse 64 /min Comments: Pattern: Regular Respiration Rate 20 /min Comments: Pattern: Unlabored BP Systolic 110 mm[Hg] Comments: Patient Position: Sitting; Cuff Location: Left Arm; Cuff Size: Large BP Diastolic 62 mm[Hg] Comments: Patient Position: Sitting; Cuff Location: Left Arm; Cuff Size: Large Weight 198.25 lb Height 67 in Body Mass Index Calculated 31.05 kg/m2 Body Surface Area Calculated 2.01 m2 Head Circumference 0.00 cm :39 Pulse 64 /min Comments: Pattern: Regular Respiration Rate 16 /min Comments: Pattern: Unlabored BP Systolic 128 mm[Hg] Comments: Patient Position: Sitting; Cuff Location: Right Arm; Cuff Size: Standard BP Diastolic 82 mm[Hg] Comments: Patient Position: Sitting; Cuff Location: Right Arm; Cuff Size: Standard Weight 195.0625 lb Height 67 in Body Mass Index Calculated 30.55 kg/m2 Body Surface Area Calculated 2 m2 Head Circumference 0.00 cm :53 Temperature 98.6 f Comments: Method: Oral Pulse 60 /min Comments: Pattern: Regular Respiration Rate 20 /min Comments: Pattern: Unlabored BP Systolic 122 mm[Hg] Comments: Patient Position: Sitting; Cuff Location: Left Arm; Cuff Size: Large BP Diastolic 80 mm[Hg] Comments: Patient Position: Sitting; Cuff Location: Left Arm; Cuff Size: Large Weight 195.1875 lb Height 67 in Body Mass Index Calculated 30.57 kg/m2 Body Surface Area Calculated 2 m2 Head Circumference 0.00 cm :25 Pulse 80 /min Comments: Pattern: Regular Respiration Rate 20 /min Comments: Pattern: Unlabored BP Systolic 132 mm[Hg] Comments: Patient Position: Sitting; Cuff Location: Left Arm; Cuff Size: Standard BP Diastolic 84 mm[Hg] Comments: Patient Position: Sitting; Cuff Location: Left Arm; Cuff Size: Standard Weight 195.1875 lb Height 67 in Body Mass Index Calculated 30.57 kg/m2 Body Surface Area Calculated 2 m2 Head Circumference 0.00 cm :13 Pulse 80 /min Comments: Pattern: Regular Respiration Rate 20 /min Comments: Pattern: Labored BP Systolic 142 mm[Hg] Comments: Patient Position: Sitting; Cuff Location: Right Arm; Cuff Size: Standard BP Diastolic 98 mm[Hg] Comments: Patient Position: Sitting; Cuff Location: Right Arm; Cuff Size: Standard Weight 197.5 lb Height 67 in Body Mass Index Calculated 30.93 kg/m2 Body Surface Area Calculated 2.01 m2 Head Circumference 0.00 cm :02 Temperature 98.1 f Comments: Method: Oral Pulse 74 /min Comments: Pattern: Regular Respiration Rate 20 /min Comments: Pattern: Unlabored BP Systolic 124 mm[Hg] Comments: Patient Position: Sitting; Cuff Location: Left Arm; Cuff Size: Standard BP Diastolic 78 mm[Hg] Comments: Patient Position: Sitting; Cuff Location: Left Arm; Cuff Size: Standard Weight 195 lb Height 0 in Head Circumference 0.00 cm :15 Temperature 98.4 f Comments: Method: Oral Pulse 66 /min Comments: Pattern: Regular Respiration Rate 16 /min Comments: Pattern: Unlabored BP Systolic 132 mm[Hg] Comments: Patient Position: Sitting; Cuff Location: Left Arm; Cuff Size: Standard BP Diastolic 82 mm[Hg] Comments: Patient Position: Sitting; Cuff Location: Left Arm; Cuff Size: Standard Weight 183.3125 lb Height 0 in Head Circumference 0.00 cm :56 Temperature 98.3 f Comments: Method: Undefined Pulse 68 /min Comments: Pattern: Regular Respiration Rate 16 /min Comments: Pattern: Undefined BP Systolic 138 mm[Hg] Comments: Patient Position: Sitting; Cuff Location: Left Arm; Cuff Size: Large BP Diastolic 70 mm[Hg] Comments: Patient Position: Sitting; Cuff Location: Left Arm; Cuff Size: Large Weight 184 lb Height 67 in Body Mass Index Calculated 28.82 kg/m2 Body Surface Area Calculated 1.95 m2 Head Circumference 0.00 cm Results Date Description Value Details [id number] CBC & PLATELETS (AUTO) (81006) Comments: PATIENT NOT FASTINGPERFORMED BY: [email or web address] [facility]indFormerly [facility] [id number] Platelets 284 {x10E3/uL} (Normal) Range: 150-379 RDW 13.2 % (Normal) Range: 12.3-15.4 MCHC 35.0 g/dL (Normal) Range: 31.5-35.7 MCH 32.3 pg (Normal) Range: 26.6-33.0 MCV 92 fL (Normal) Range: 79-97 Hematocrit 43.4 % (Normal) Range: 37.5-51.0 Hemoglobin 15.2 g/dL (Normal) Range: 13.0-17.7 RBC 4.70 {x10E6/uL} (Normal) Range: 4.14-5.80 WBC 8.4 {x10E3/uL} (Normal) Range: 3.4-10.8 [id number] PSA (PROSTATE SPECIFIC Comments: PATIENT NOT FASTINGPERFORMED BY: [id number] [facility] [id number] ANTIGEN) (V76.44) Prostate Specific Ag, 0.6 ng/mL (Normal) Range: 0.0-4.0 Serum Comments: [place] [employer] methodology. .According to the [place] [employer], Serum PSA shoulddecrease and remain at undetectable levels after radicalprostatectomy. The AUA defines biochemical recurrence as an initialPSA value 0.2 ng/mL or greater followed by a subsequent confirmatoryPSA value 0.2 ng/mL or greater.Values obtained with d ifferent assay methods or kits cannot be usedinterchangeably. Results cannot be interpreted as absolute evidenceof the presence or absence of malignant disease. :08 Urinalysis, Office (08443) UA - LEUKOCYTE ESTERASE Negative (Normal) UA - NITRITE Negative (Normal) URINE UROBILINGN EDWARDO Normal mg/dL (Normal) TIMED UA - PROTEIN Negative mg/dL (Normal) UA - PH 8.5 (Normal) Comments: 10.5 - wouldnt let me enter that high UA - BLOOD Negative (Normal) UA - SPECIFIC GRAVITY 1.015 (Normal) UA - KETONES Negative mg/dL (Normal) UA - BILIRUBIN Negative (Normal) UA - GLUCOSE Negative (Normal) :25 COLON BIOPSY (CHOOSE See Note (Normal) Comments: [facility] [id number] [place], [address] SITE) Comments: Patient: PRADEEP VARGAS : 1965 (52/M) Acct Num: [id number] Phys: Bo Heath Unit Num: [id number] Loc: LABSPEC Specimen: [id number] Received: 12/15/17 - 4414 Spec Type: COL ON BX TISSUES TISSUES: COLON BIOPSY GROSS DESCRIPTION Received in fixative is one container labeled with the patient's name and designated hepatic flexure. The specime n consists of multiple irregular fragments of light faust soft tissue that in aggregate measure 0.5 x 0.5 x 0.1 cm. The specimen is totally submitted in one cassette. / Scottie 12/18/17 TC:4 CPT: 42158 HEADER OPERATION: Colon with biopsy PRE-OP DIAGNOSIS: Rectal pain TISSUE SUBMITTED: Hepatic flexure polyp, rule out adenoma MICROSCOPIC DESCRIPTION Slides are reviewed. MICROSCOPI C DIAGNOSIS Hepatic flexure polyp, biopsy: Fragments of colonic mucosa, no pathologic diagnosis. MICHELL:eliceo 12/19/17 Signed Dante Kelly 12/19/17 <signature on file> [id number] HgA1C , Office (79925) HgA1C , Office 5.4 % (Normal) Range: 4.6 - 7.1 [id number]:13 TSH (THYROID STIMULATING Comments: PATIENT WAS FASTINGPERFORMED BY: Mad MimiSamaritan HospitalIgvgyl8336 [facility] [id number] HORMONE) (17825) TSH 2.200 {uIU/mL} (Normal) Range: 0.450-4.500 16-Inh-647724:13 CALCIFEDIOL (62028) Comments: PATIENT WAS FASTINGPERFORMED BY: Mad MimiKresge Eye Institute6370 [facility] [id number] Vitamin D, 25-Hydroxy 43.7 ng/mL (Normal) Range: 30.0-100.0 Comments: Vitamin D deficiency has been defined by the [place] [employer] and an Endocrine Society practice guideline as alevel of serum 25-OH vitamin D less than 20 ng/mL (1,2).The Endocrine Society went on to further define vitamin Dinsufficiency as a level between 21 and 29 ng/mL (2).1. IOM ([place] [employer]). 2010. Dietary reference intakes for calcium and D. Ramachand[place]: The National Academies Press.2. Hortencia MF, Bianca NC, Rosenda AREVALO, et al. Evaluation, treatment, and prevention of vitamin D deficiency: an Endocrine Society clinical practice guideline. JCEM. 2010; 96(7):1911-30. [id number] MICROALBUMIN: CREATININE RATIO Comments: PATIENT WAS FASTINGPERFORMED BY: Mad MimiSamaritan HospitalVzevgr5833 [facility] [id number] (23493) AND (23959) Alb/Creat Ratio 1.9 {mg/g_creat} (Normal) Range: 0.0-30.0 Albumin, Urine 3.1 ug/mL (Normal) Creatinine, Urine 164.4 mg/dL (Normal) [id number]:13 METABOLIC PANEL, COMPREHENSIVE Comments: PATIENT WAS FASTINGPERFORMED BY: Mad MimiCox Monett Yfbrlp4346 [facility] [id number] (18974) ALT (SGPT) 37 [iU]/L (Normal) Range: 0-44 AST (SGOT) 40 [iU]/L (Normal) Range: 0-40 Alkaline Phosphatase 60 [iU]/L (Normal) Range: 39-117 Bilirubin, Total 0.5 mg/dL (Normal) Range: 0.0-1.2 A/G Ratio 2.0 (Normal) Range: 1.2-2.2 Globulin, Total 2.2 g/dL (Normal) Range: 1.5-4.5 Albumin 4.3 g/dL (Normal) Range: 3.5-5.5 Protein, Total 6.5 g/dL (Normal) Range: 6.0-8.5 Calcium 9.1 mg/dL (Normal) Range: 8.7-10.2 Carbon Dioxide, Total 26 mmol/L (Normal) Range: 18-29 Chloride 101 mmol/L (Normal) Range: 96-106 Potassium 4.7 mmol/L (Normal) Range: 3.5-5.2 Sodium 141 mmol/L (Normal) Range: 134-144 BUN/Creatinine Ratio 14 (Normal) Range: 9-20 eGFR If Africn Am 96 mL/min/1.73 (Normal) eGFR If NonAfricn Am 83 mL/min/1.73 (Normal) Creatinine 1.04 mg/dL (Normal) Range: 0.76-1.27 BUN 15 mg/dL (Normal) Range: 6-24 Glucose 94 mg/dL (Normal) Range: 65-99 47-[id number]:13 CBC with auto diff (31860) Comments: PATIENT WAS FASTINGPERFORMED BY: [facility]In[facility] WoodburyHljsal0569 [facility] [id number] Immature Grans (Abs) 0.0 {x10E3/uL} (Normal) Range: 0.0-0.1 Immature Granulocytes 0 % (Normal) Baso (Absolute) 0.0 {x10E3/uL} (Normal) Range: 0.0-0.2 Eos (Absolute) 0.4 {x10E3/uL} (Normal) Range: 0.0-0.4 Monocytes(Absolute) 0.8 {x10E3/uL} (Normal) Range: 0.1-0.9 Lymphs (Absolute) 3.0 {x10E3/uL} (Normal) Range: 0.7-3.1 Neutrophils (Absolute) 3.8 {x10E3/uL} (Normal) Range: 1.4-7.0 Basos 0 % (Normal) Eos 5 % (Normal) Monocytes 10 % (Normal) Lymphs 37 % (Normal) Neutrophils 48 % (Normal) Platelets 293 {x10E3/uL} (Normal) Range: 150-379 RDW 13.9 % (Normal) Range: 12.3-15.4 MCHC 34.3 g/dL (Normal) Range: 31.5-35.7 MCH 31.7 pg (Normal) Range: 26.6-33.0 MCV 92 fL (Normal) Range: 79-97 Hematocrit 42.8 % (Normal) Range: 37.5-51.0 Hemoglobin 14.7 g/dL (Normal) Range: 13.0-17.7 RBC 4.63 {x10E6/uL} (Normal) Range: 4.14-5.80 WBC 8.1 {x10E3/uL} (Normal) Range: 3.4-10.8 26-[id number]:13 LIPID PANEL (79230) Comments: PATIENT WAS FASTINGPERFORMED BY: Spireon70 [facility] [id number] LDL/HDL Ratio 3.0 {ratio} (Normal) Range: 0.0-3.6 Comments: LDL/HDL Ratio Men Women 1/2 Avg.Risk 1.0 1.5 Av g.Risk 3.6 3.2 2X Avg.Risk 6.2 5.0 3X Avg.Risk 8.0 6.1 LDL Cholesterol Calc 117 mg/dL (Abnormal) Range: 0-99 VLDL Cholesterol Nii 35 mg/dL (Normal) Range: 5-40 HDL Cholesterol 39 mg/dL (Abnormal) Triglycerides 176 mg/dL (Abnormal) Range: 0-149 Cholesterol, Total 191 mg/dL (Normal) Range: 100-199 82-Wtf-364537:14 PSA (PROSTATE SPECIFIC Comments: PATIENT WAS FASTINGPERFORMED BY: [employer] [facility] [id number] ANTIGEN) (V76.44) Prostate Specific Ag, 0.6 ng/mL (Normal) Range: 0.0-4.0 Serum Comments: Caridad ECLIA methodology. .According to the [place] [employer], Serum PSA shoulddecrease and remain at undetectable levels after radicalprostatectomy. The AUA defines biochemical recurrence as an initialPSA value 0.2 ng/mL or greater followed by a subsequent confirmatoryPSA value 0.2 ng/mL or greater.Values obtained with d ifferent assay methods or kits cannot be usedinterchangeably. Results cannot be interpreted as absolute evidenceof the presence or absence of malignant disease. 75-Ncu-686948:14 TSH (THYROID STIMULATING Comments: PATIENT WAS FASTINGPERFORMED BY: Spireon70 [facility] [id number] HORMONE) (43321) TSH 1.920 {uIU/mL} (Normal) Range: 0.450-4.500 54-Zup-650993:14 MICROALBUMIN: CREATININE RATIO Comments: PATIENT WAS FASTINGPERFORMED BY: [employer] Adzull1453 [facility] [id number] (95302) AND (40719) Microalb/Creat Ratio <4.4 {mg/g_creat} (Normal) Range: 0.0-30.0 Microalbumin, Urine <3.0 ug/mL (Normal) Creatinine, Urine 68.4 mg/dL (Normal) 67-Kdh-926884:14 METABOLIC PANEL, COMPREHENSIVE Comments: PATIENT WAS FASTINGPERFORMED BY: [employer] Expqvq3785 [facility] [id number] (21872) ALT (SGPT) 40 [iU]/L (Normal) Range: 0-44 AST (SGOT) 43 [iU]/L (Abnormal) Range: 0-40 Alkaline Phosphatase, S 60 [iU]/L (Normal) Range: 39-117 Bilirubin, Total 0.6 mg/dL (Normal) Range: 0.0-1.2 A/G Ratio 2.3 (Abnormal) Range: 1.2-2.2 Globulin, Total 2.1 g/dL (Normal) Range: 1.5-4.5 Albumin, Serum 4.9 g/dL (Normal) Range: 3.5-5.5 Protein, Total, Serum 7.0 g/dL (Normal) Range: 6.0-8.5 Calcium, Serum 9.7 mg/dL (Normal) Range: 8.7-10.2 Carbon Dioxide, Total 24 mmol/L (Normal) Range: 18-29 Chloride, Serum 99 mmol/L (Normal) Range: 96-106 Potassium, Serum 4.5 mmol/L (Normal) Range: 3.5-5.2 Sodium, Serum 140 mmol/L (Normal) Range: 134-144 BUN/Creatinine Ratio 22 (Abnormal) Range: 9-20 eGFR If Africn Am 96 mL/min/1.73 (Normal) eGFR If NonAfricn Am 83 mL/min/1.73 (Normal) Creatinine, Serum 1.05 mg/dL (Normal) Range: 0.76-1.27 BUN 23 mg/dL (Normal) Range: 6-24 Glucose, Serum 65 mg/dL (Normal) Range: 65-99 48-Scw-510497:14 CBC with auto diff (63890) Comments: PATIENT WAS FASTINGPERFORMED BY: [facility]CoIn[facility] WoodburyOmmujx9831 [facility] [id number] Immature Grans (Abs) 0.0 {x10E3/uL} (Normal) Range: 0.0-0.1 Immature Granulocytes 0 % (Normal) Baso (Absolute) 0.0 {x10E3/uL} (Normal) Range: 0.0-0.2 Eos (Absolute) 0.2 {x10E3/uL} (Normal) Range: 0.0-0.4 Monocytes(Absolute) 0.8 {x10E3/uL} (Normal) Range: 0.1-0.9 Lymphs (Absolute) 2.7 {x10E3/uL} (Normal) Range: 0.7-3.1 Neutrophils (Absolute) 7.4 {x10E3/uL} (Abnormal) Range: 1.4-7.0 Basos 0 % (Normal) Eos 2 % (Normal) Monocytes 7 % (Normal) Lymphs 24 % (Normal) Neutrophils 67 % (Normal) Platelets 285 {x10E3/uL} (Normal) Range: 150-379 RDW 13.5 % (Normal) Range: 12.3-15.4 MCHC 33.9 g/dL (Normal) Range: 31.5-35.7 MCH 32.0 pg (Normal) Range: 26.6-33.0 MCV 95 fL (Normal) Range: 79-97 Hematocrit 44.6 % (Normal) Range: 37.5-51.0 Hemoglobin 15.1 g/dL (Normal) Range: 12.6-17.7 RBC 4.72 {x10E6/uL} (Normal) Range: 4.14-5.80 WBC 11.2 {x10E3/uL} (Abnormal) Range: 3.4-10.8 68-Jzw-274458:14 LIPID PANEL (85129) Comments: PATIENT WAS FASTINGPERFORMED BY: Spireon70 [facility] [id number] LDL/HDL Ratio 2.2 {ratio_units} (Normal) Range: 0.0-3.6 Comments: LDL/HDL Ratio Men Women 1/2 Avg.Risk 1.0 1.5 Av g.Risk 3.6 3.2 2X Avg.Risk 6.2 5.0 3X Avg.Risk 8.0 6.1 LDL Cholesterol Calc 119 mg/dL (Abnormal) Range: 0-99 VLDL Cholesterol Nii 14 mg/dL (Normal) Range: 5-40 HDL Cholesterol 53 mg/dL (Normal) Triglycerides 72 mg/dL (Normal) Range: 0-149 Cholesterol, Total 186 mg/dL (Normal) Range: 100-199 59-Mbd-798893:14 HGB A1C (94775) Comments: PATIENT WAS FASTINGPERFORMED BY: Nebo6370 [facility]otalotEC[facility] [id number] Hemoglobin A1c 5.9 % (Abnormal) Range: 4.8-5.6 Comments: . Pre-diabetes: 5.7 - 6.4 Diabetes: >6.4 Glycemic control for adults with diabetes: <7.0 59-Ybf-554553:14 [id number]-ZQRRAUNUHYB-VZIAJ (68062) Comments: PATIENT WAS FASTINGPERFORMED BY: Nebo6370 [facility] [id number] AFP, Serum, Tumor Marker 3.6 ng/mL (Normal) Range: 0.0-8.3 Comments: Caridad ECLIA methodology 73-Iux-829287:14 CALCIFIDIOL (28026) VIT D 25 Comments: PATIENT WAS FASTINGPERFORMED BY: Nebo6370 [facility] [id number] Vitamin D, 25-Hydroxy 56.4 ng/mL (Normal) Range: 30.0-100.0 Comments: Vitamin D deficiency has been defined by the [place] of[place] and an Endocrine Society practice guideline as alevel of serum 25-OH vitamin D less than 20 ng/mL (1,2).The Endocrine Society went on to further define vitamin Dinsufficiency as a level between 21 and 29 ng/mL (2).1. IOM ([place] of [employer]). 2010. Dietary reference intakes for calcium and D. Ramachand[place]: The National AcademMagnolia [employer].2. Bianca Sharpe, Rosenda AREVALO, et al. Evaluation, treatment, and prevention of vitamin D deficiency: an Endocrine Society clinical practice guideline. JCEM. 2010; 96(7):1911-30. :37 Rapid Flu (22036 x 2) Influenza A Ag positve a, neg b (Normal) :11 Microscopic Examination Comments: PATIENT WAS FASTINGPERFORMED BY: [facility] Tmvala7436 [facility] [id number] Bacteria None seen (Normal) Mucus Threads Present (Normal) Epithelial Cells (non renal) 0-10 {/hpf} (Normal) Range: 0 - 10 RBC 0-2 {/hpf} (Normal) Range: 0 - 2 WBC 0-5 {/hpf} (Normal) Range: 0 - 5 :11 CALCIFEDIOL (38080) Comments: PATIENT WAS FASTINGPERFORMED BY: [employer] Xcpbjw3397 [facility] [id number] Vitamin D, 25-Hydroxy 34.6 ng/mL (Normal) Range: 30.0-100.0 Comments: Vitamin D deficiency has been defined by the [place] of[employer] and an Endocrine Society practice guideline as alevel of serum 25-OH vitamin D less than 20 ng/mL (1,2).The Endocrine Society went on to further define vitamin Dinsufficiency as a level between 21 and 29 ng/mL (2).1. IOM ([place] [employer]). 2010. Dietary reference intakes for calcium and D. Ramachandran [place]: The National Academies Press.2. Bianca Sharpe, Rosenda AREVALO, et al. Evaluation, treatment, and prevention of vitamin D deficiency: an Endocrine Society clinical practice guideline. JCEM. 2010; 96(7):1911-30. :11 HGB A1C (58336) Comments: PATIENT WAS FASTINGPERFORMED BY: Mad MimiKresge Eye Institute6370 [facility] [id number] Hemoglobin A1c 5.8 % (Abnormal) Range: 4.8-5.6 Comments: . Pre-diabetes: 5.7 - 6.4 Diabetes: >6.4 Glycemic control for adults with diabetes: <7.0 :11 TSH (74535) Comments: PATIENT WAS FASTINGPERFORMED BY: Mad MimiSamaritan HospitalBaoemb7482 [facility] [id number] TSH 2.590 {uIU/mL} (Normal) Range: 0.450-4.500 :11 URINALYSIS, W/ MICRO (43825) Comments: PATIENT WAS FASTINGPERFORMED BY: Mad MimiK[facility] Eye Institute6370 [facility] [id number] Microscopic Examination See below: (Normal) Comments: Microscopic was indicated and was performed. Microscopic Examination MICRON (Normal) Comments: Microscopic follows if indicated. Nitrite, Urine Negative (Normal) Urobilinogen,Semi-Qn 0.2 mg/dL (Normal) Range: 0.2-1.0 Bilirubin Negative (Normal) Occult Blood Negative (Normal) Ketones Negative (Normal) Glucose Negative (Normal) Protein Trace (Normal) WBC Esterase Negative (Normal) Appearance Clear (Normal) Urine-Color Yellow (Normal) pH 7.5 (Normal) Range: 5.0-7.5 Specific Whiteside 1.024 (Normal) Range: 1.005-1.030 :11 MICROALBUMIN: CREATININE RATIO Comments: PATIENT WAS FASTINGPERFORMED BY: Mad MimiK[facility] Institute6370 [facility] [id number] (96410) AND (24469) Microalb/Creat Ratio 2.4 {mg/g_creat} (Normal) Range: 0.0-30.0 Microalbumin, Urine 4.2 ug/mL (Normal) Creatinine, Urine 172.8 mg/dL (Normal) :11 METABOLIC PANEL, COMPREHENSIVE Comments: PATIENT WAS FASTINGPERFORMED BY: Spireon70 [facility] [id number] (83791) ALT (SGPT) 35 [iU]/L (Normal) Range: 0-44 AST (SGOT) 40 [iU]/L (Normal) Range: 0-40 Alkaline Phosphatase, S 60 [iU]/L (Normal) Range: 39-117 Bilirubin, Total 0.4 mg/dL (Normal) Range: 0.0-1.2 A/G Ratio 2.0 (Normal) Range: 1.1-2.5 Globulin, Total 2.2 g/dL (Normal) Range: 1.5-4.5 Albumin, Serum 4.5 g/dL (Normal) Range: 3.5-5.5 Protein, Total, Serum 6.7 g/dL (Normal) Range: 6.0-8.5 Calcium, Serum 9.7 mg/dL (Normal) Range: 8.7-10.2 Carbon Dioxide, Total 23 mmol/L (Normal) Range: 18-29 Chloride, Serum 100 mmol/L (Normal) Range: 97-108 Potassium, Serum 4.2 mmol/L (Normal) Range: 3.5-5.2 Sodium, Serum 141 mmol/L (Normal) Range: 134-144 BUN/Creatinine Ratio 13 (Normal) Range: 9-20 eGFR If Africn Am 89 mL/min/1.73 (Normal) eGFR If NonAfricn Am 77 mL/min/1.73 (Normal) Creatinine, Serum 1.12 mg/dL (Normal) Range: 0.76-1.27 BUN 14 mg/dL (Normal) Range: 6-24 Glucose, Serum 80 mg/dL (Normal) Range: 65-99 :11 LIPID PANEL (15113) Comments: PATIENT WAS FASTINGPERFORMED BY: [employer] Pddhrq3783 [facility] [id number] LDL/HDL Ratio 3.0 {ratio_units} (Normal) Range: 0.0-3.6 Comments: LDL/HDL Ratio Men Women 1/2 Avg.Risk 1.0 1.5 Av g.Risk 3.6 3.2 2X Avg.Risk 6.2 5.0 3X Avg.Risk 8.0 6.1 LDL Cholesterol Calc 127 mg/dL (Abnormal) Range: 0-99 VLDL Cholesterol Nii 26 mg/dL (Normal) Range: 5-40 HDL Cholesterol 43 mg/dL (Normal) Comments: According to ATP-III Guidelines, HDL-C >59 mg/dL is considered anegative risk factor for CHD. Triglycerides 130 mg/dL (Normal) Range: 0-149 Cholesterol, Total 196 mg/dL (Normal) Range: 100-199 43-Jad-466014:03 CBC WITH MANUAL DIFF Comments: PATIENT NOT FASTINGPERFORMED BY: [facility] Idbvpc5524 [facility] [id number] Information: [id number] (12637) Immature Grans (Abs) 0.0 {x10E3/uL} (Normal) Range: 0.0-0.1 Immature Granulocytes 0 % (Normal) Baso (Absolute) 0.0 {x10E3/uL} (Normal) Range: 0.0-0.2 Eos (Absolute) 0.3 {x10E3/uL} (Normal) Range: 0.0-0.4 Monocytes(Absolute) 0.9 {x10E3/uL} (Normal) Range: 0.1-0.9 Lymphs (Absolute) 3.8 {x10E3/uL} (Abnormal) Range: 0.7-3.1 Neutrophils (Absolute) 4.1 {x10E3/uL} (Normal) Range: 1.4-7.0 Basos 0 % (Normal) Eos 4 % (Normal) Monocytes 9 % (Normal) Lymphs 42 % (Normal) Neutrophils 45 % (Normal) Platelets 276 {x10E3/uL} (Normal) Range: 150-379 RDW 13.5 % (Normal) Range: 12.3-15.4 MCHC 34.0 g/dL (Normal) Range: 31.5-35.7 MCH 31.7 pg (Normal) Range: 26.6-33.0 MCV 93 fL (Normal) Range: 79-97 Hematocrit 42.0 % (Normal) Range: 37.5-51.0 Hemoglobin 14.3 g/dL (Normal) Range: 12.6-17.7 RBC 4.51 {x10E6/uL} (Normal) Range: 4.14-5.80 WBC 9.2 {x10E3/uL} (Normal) Range: 3.4-10.8 :26 PSA (PROSTATE SPECIFIC Comments: PATIENT WAS FASTINGPERFORMED BY: WebMDInspira Medical Center WoodburyJuvtwv4449 [facility] [id number] ANTIGEN) (V76.44) Prostate Specific Ag, 0.6 ng/mL (Normal) Range: 0.0-4.0 Serum Comments: Health Outcomes WorldwideIA methodology. .According to the [place] [employer], Serum PSA shoulddecrease and remain at undetectable levels after radicalprostatectomy. The AUA defines biochemical recurrence as an initialPSA value 0.2 ng/mL or greater followed by a subsequent confirmatoryPSA value 0.2 ng/mL or greater.Values obtained with d ifferent assay methods or kits cannot be usedinterchangeably. Results cannot be interpreted as absolute evidenceof the presence or absence of malignant disease. :26 CBC W/AUTO DIFF WBC Comments: PATIENT WAS FASTINGPERFORMED BY: [employer] Hzorid7606 [facility] [id number] Information: [id number] (01614) Immature Grans (Abs) 0.0 {x10E3/uL} (Normal) Range: 0.0-0.1 Immature Granulocytes 0 % (Normal) Baso (Absolute) 0.0 {x10E3/uL} (Normal) Range: 0.0-0.2 Eos (Absolute) 0.2 {x10E3/uL} (Normal) Range: 0.0-0.4 Monocytes(Absolute) 1.0 {x10E3/uL} (Abnormal) Range: 0.1-0.9 Lymphs (Absolute) 3.8 {x10E3/uL} (Abnormal) Range: 0.7-3.1 Neutrophils (Absolute) 5.5 {x10E3/uL} (Normal) Range: 1.4-7.0 Basos 0 % (Normal) Eos 2 % (Normal) Monocytes 9 % (Normal) Lymphs 36 % (Normal) Neutrophils 53 % (Normal) Platelets 278 {x10E3/uL} (Normal) Range: 150-379 RDW 13.7 % (Normal) Range: 12.3-15.4 MCHC 34.1 g/dL (Normal) Range: 31.5-35.7 MCH 32.3 pg (Normal) Range: 26.6-33.0 MCV 95 fL (Normal) Range: 79-97 Hematocrit 42.5 % (Normal) Range: 37.5-51.0 Hemoglobin 14.5 g/dL (Normal) Range: 12.6-17.7 RBC 4.49 {x10E6/uL} (Normal) Range: 4.14-5.80 WBC 10.6 {x10E3/uL} (Normal) Range: 3.4-10.8 :26 METABOLIC PANEL, COMPREHENSIVE Comments: PATIENT WAS FASTINGPERFORMED BY: LabCoInspira Medical Center WoodburyIbuiic1903 [facility] [id number] (19090) ALT (SGPT) 48 [iU]/L (Abnormal) Range: 0-44 AST (SGOT) 49 [iU]/L (Abnormal) Range: 0-40 Alkaline Phosphatase, S 65 [iU]/L (Normal) Range: 39-117 Bilirubin, Total 0.4 mg/dL (Normal) Range: 0.0-1.2 A/G Ratio 2.4 (Normal) Range: 1.1-2.5 Globulin, Total 2.0 g/dL (Normal) Range: 1.5-4.5 Albumin, Serum 4.8 g/dL (Normal) Range: 3.5-5.5 Protein, Total, Serum 6.8 g/dL (Normal) Range: 6.0-8.5 Calcium, Serum 9.9 mg/dL (Normal) Range: 8.7-10.2 Carbon Dioxide, Total 25 mmol/L (Normal) Range: 18-29 Chloride, Serum 98 mmol/L (Normal) Range: 97-108 Potassium, Serum 4.7 mmol/L (Normal) Range: 3.5-5.2 Sodium, Serum 139 mmol/L (Normal) Range: 134-144 BUN/Creatinine Ratio 14 (Normal) Range: 9-20 eGFR If Africn Am 80 mL/min/1.73 (Normal) eGFR If NonAfricn Am 69 mL/min/1.73 (Normal) Creatinine, Serum 1.23 mg/dL (Normal) Range: 0.76-1.27 BUN 17 mg/dL (Normal) Range: 6-24 Glucose, Serum 79 mg/dL (Normal) Range: 65-99 :26 HGB A1C (52834) Comments: PATIENT WAS FASTINGPERFORMED BY: WebMDInspira Medical Center WoodburyEbpeoi3620 [facility] [id number] Hemoglobin A1c 5.8 % (Abnormal) Range: 4.8-5.6 Comments: . Pre-diabetes: 5.7 - 6.4 Diabetes: >6.4 Glycemic control for adults with diabetes: <7.0 :26 LIPID PANEL (25114) Comments: PATIENT WAS FASTINGPERFORMED BY: WebMDInspira Medical Center WoodburyVwibtm7159 [facility] [id number] LDL/HDL Ratio 3.0 {ratio_units} (Normal) Range: 0.0-3.6 Comments: LDL/HDL Ratio Men Women 1/2 Avg.Risk 1.0 1.5 Av g.Risk 3.6 3.2 2X Avg.Risk 6.2 5.0 3X Avg.Risk 8.0 6.1 LDL Cholesterol Calc 126 mg/dL (Abnormal) Range: 0-99 VLDL Cholesterol Nii 24 mg/dL (Normal) Range: 5-40 HDL Cholesterol 42 mg/dL (Normal) Comments: According to ATP-III Guidelines, HDL-C >59 mg/dL is considered anegative risk factor for CHD. Triglycerides 119 mg/dL (Normal) Range: 0-149 Cholesterol, Total 192 mg/dL (Normal) Range: 100-199 :12 Rapid Flu (73909 x 2) Influenza A Ag negative (Normal) :09 Metabolic Panel, Comments: PATIENT WAS FASTINGPERFORMED BY: [facility]6370 [facility] [id number] Information: [id number] Comprehensive (25371) ALT (SGPT) 33 [iU]/L (Normal) Range: 0-44 AST (SGOT) 37 [iU]/L (Normal) Range: 0-40 Alkaline Phosphatase, S 62 [iU]/L (Normal) Range: 39-117 Bilirubin, Total 0.4 mg/dL (Normal) Range: 0.0-1.2 A/G Ratio 2.5 (Normal) Range: 1.1-2.5 Globulin, Total 1.9 g/dL (Normal) Range: 1.5-4.5 Albumin, Serum 4.8 g/dL (Normal) Range: 3.5-5.5 Protein, Total, Serum 6.7 g/dL (Normal) Range: 6.0-8.5 Calcium, Serum 10.1 mg/dL (Normal) Range: 8.7-10.2 Carbon Dioxide, Total 25 mmol/L (Normal) Range: 18-29 Chloride, Serum 98 mmol/L (Normal) Range: 97-108 Potassium, Serum 4.3 mmol/L (Normal) Range: 3.5-5.2 Sodium, Serum 140 mmol/L (Normal) Range: 134-144 BUN/Creatinine Ratio 15 (Normal) Range: 9-20 eGFR If Africn Am 93 mL/min/1.73 (Normal) eGFR If NonAfricn Am 80 mL/min/1.73 (Normal) Creatinine, Serum 1.09 mg/dL (Normal) Range: 0.76-1.27 BUN 16 mg/dL (Normal) Range: 6-24 Glucose, Serum 73 mg/dL (Normal) Range: 65-99 :09 Lipid Panel (16593) Comments: PATIENT WAS FASTINGPERFORMED BY: LabCoInspira Medical Center WoodburyZxrhcz3565 [facility] [id number] LDL/HDL Ratio 3.2 {ratio_units} (Normal) Range: 0.0-3.6 Comments: LDL/HDL Ratio Men Women 1/2 Avg.Risk 1.0 1.5 Av g.Risk 3.6 3.2 2X Avg.Risk 6.2 5.0 3X Avg.Risk 8.0 6.1 LDL Cholesterol Calc 124 mg/dL (Abnormal) Range: 0-99 VLDL Cholesterol Nii 44 mg/dL (Abnormal) Range: 5-40 HDL Cholesterol 39 mg/dL (Abnormal) Comments: According to ATP-III Guidelines, HDL-C >59 mg/dL is considered anegative risk factor for CHD. Triglycerides 221 mg/dL (Abnormal) Range: 0-149 Cholesterol, Total 207 mg/dL (Abnormal) Range: 100-199 :57 LIPID PANEL (76375) Comments: PATIENT WAS FASTINGPERFORMED BY: WebMDInspira Medical Center WoodburyIrfrza6940 [facility] [id number] LDL/HDL Ratio 2.9 {ratio_units} (Normal) Range: 0.0-3.6 Comments: LDL/HDL Ratio Men Women 1/2 Avg.Risk 1.0 1.5 Av g.Risk 3.6 3.2 2X Avg.Risk 6.2 5.0 3X Avg.Risk 8.0 6.1 LDL Cholesterol Calc 127 mg/dL (Abnormal) Range: 0-99 VLDL Cholesterol Nii 32 mg/dL (Normal) Range: 5-40 HDL Cholesterol 44 mg/dL (Normal) Comments: According to ATP-III Guidelines, HDL-C >59 mg/dL is considered anegative risk factor for CHD. Triglycerides 158 mg/dL (Abnormal) Range: 0-149 Cholesterol, Total 203 mg/dL (Abnormal) Range: 100-199 :57 CBC W/AUTO DIFF WBC (77247) Comments: PATIENT WAS FASTINGPERFORMED BY: WebMDInspira Medical Center WoodburyEgqiwd4756 [facility] [id number] Immature Grans (Abs) 0.0 {x10E3/uL} (Normal) Range: 0.0-0.1 Immature Granulocytes 0 % (Normal) Baso (Absolute) 0.0 {x10E3/uL} (Normal) Range: 0.0-0.2 Eos (Absolute) 0.2 {x10E3/uL} (Normal) Range: 0.0-0.4 Monocytes(Absolute) 1.1 {x10E3/uL} (Abnormal) Range: 0.1-0.9 Lymphs (Absolute) 4.1 {x10E3/uL} (Abnormal) Range: 0.7-3.1 Neutrophils (Absolute) 4.8 {x10E3/uL} (Normal) Range: 1.4-7.0 Basos 0 % (Normal) Eos 2 % (Normal) Monocytes 11 % (Normal) Lymphs 40 % (Normal) Neutrophils 47 % (Normal) Platelets 307 {x10E3/uL} (Normal) Range: 150-379 RDW 13.4 % (Normal) Range: 12.3-15.4 MCHC 34.7 g/dL (Normal) Range: 31.5-35.7 MCH 32.2 pg (Normal) Range: 26.6-33.0 MCV 93 fL (Normal) Range: 79-97 Hematocrit 42.7 % (Normal) Range: 37.5-51.0 Hemoglobin 14.8 g/dL (Normal) Range: 12.6-17.7 RBC 4.59 {x10E6/uL} (Normal) Range: 4.14-5.80 WBC 10.2 {x10E3/uL} (Normal) Range: 3.4-10.8 :57 METABOLIC PANEL, COMPREHENSIVE Comments: PATIENT WAS FASTINGPERFORMED BY: LabCoInsp[facility] Center WoodburyMycohu3986 [facility] [id number] (16656) ALT (SGPT) 51 [iU]/L (Abnormal) Range: 0-44 AST (SGOT) 60 [iU]/L (Abnormal) Range: 0-40 Alkaline Phosphatase, S 65 [iU]/L (Normal) Range: 39-117 Bilirubin, Total 0.4 mg/dL (Normal) Range: 0.0-1.2 A/G Ratio 2.4 (Normal) Range: 1.1-2.5 Globulin, Total 2.1 g/dL (Normal) Range: 1.5-4.5 Albumin, Serum 5.0 g/dL (Normal) Range: 3.5-5.5 Protein, Total, Serum 7.1 g/dL (Normal) Range: 6.0-8.5 Calcium, Serum 10.1 mg/dL (Normal) Range: 8.7-10.2 Carbon Dioxide, Total 27 mmol/L (Normal) Range: 18-29 Chloride, Serum 99 mmol/L (Normal) Range: 97-108 Potassium, Serum 4.5 mmol/L (Normal) Range: 3.5-5.2 Sodium, Serum 142 mmol/L (Normal) Range: 134-144 BUN/Creatinine Ratio 12 (Normal) Range: 9-20 eGFR If Africn Am 89 mL/min/1.73 (Normal) eGFR If NonAfricn Am 77 mL/min/1.73 (Normal) Creatinine, Serum 1.14 mg/dL (Normal) Range: 0.76-1.27 BUN 14 mg/dL (Normal) Range: 6-24 Glucose, Serum 64 mg/dL (Abnormal) Range: 65-99 :57 [id number] (00639) Comments: PATIENT WAS FASTINGPERFORMED BY: [facility]6370 [facility] [id number] AFP, Serum, Tumor Marker 3.4 ng/mL (Normal) Range: 0.0-8.3 Comments: Caridad ECLIA methodology :57 PTT (Activated Partial Comments: PATIENT WAS FASTINGPERFORMED BY: [place] 7684070 [facility] [id number] Thromboplastin Time) (15012) aPTT 28 {sec} (Normal) Range: 24-33 Comments: This test has not been validated for monitoring unfractionated heparintherapy. aPTT-based therapeutic ranges for unfractionated heparintherapy have not been established. For general guidelines onHeparin monitoring, refer to the [facility] Directory of Services. :57 PT (Prothrobim Time) (23970) Comments: PATIENT WAS FASTINGPERFORMED BY: [facility]6370 [facility] [id number] Prothrombin Time 10.4 {sec} (Normal) Range: 9.1-12.0 INR 1.0 (Normal) Range: 0.8-1.2 Comments: Reference interval is for non-anticoagulated patients. . Suggested INR therapeutic range for Vitamin K anta gonist therapy: Standard Dose (moderate intensity therapeutic range): 2.0 - 3.0 Higher intensity therapeutic range 2.5 - 3.5 :25 Urinalysis, Office (08045) UA - LEUKOCYTE ESTERASE Negative (Normal) UA - NITRITE Negative (Normal) URINE UROBILINGN EDWARDO TIMED Normal mg/dL (Normal) UA - PROTEIN Negative mg/dL (Normal) UA - PH 6.5 (Normal) UA - BLOOD non-hemolyzed trace (Normal) UA - SPECIFIC GRAVITY 1.030 (Abnormal) UA - KETONES 5 mg/dL (Abnormal) UA - BILIRUBIN Negative (Normal) UA - GLUCOSE Negative (Normal) 35-Hyg-496437:12 PSA (PROSTATE SPECIFIC Comments: PATIENT NOT FASTINGPERFORMED BY: WebMDInspira Medical Center WoodburyAagsca4748 [facility] [id number] ANTIGEN) (V76.44) Prostate Specific Ag, 0.7 ng/mL (Normal) Range: 0.0-4.0 Serum Comments: Caridad ECLIA methodology. .According to the [place] [employer], Serum PSA shoulddecrease and remain at undetectable levels after radicalprostatectomy. The AUA defines biochemical recurrence as an initialPSA value 0.2 ng/mL or greater followed by a subsequent confirmatoryPSA value 0.2 ng/mL or greater.Values obtained with d ifferent assay methods or kits cannot be usedinterchangeably. Results cannot be interpreted as absolute evidenceof the presence or absence of malignant disease. 34-Dkq-458643:12 TSH ([id number]) Comments: PATIENT NOT FASTINGPERFORMED BY: WebMDInsp[facility] [id number] [facility] [id number] TSH 2.460 {uIU/mL} (Normal) Range: 0.450-4.500 [id number]:12 METABOLIC PANEL, Comments: PATIENT NOT FASTINGPERFORMED BY: WebMDIn[facility] [id number] [facility] [id number] Information: [id number] COMPREHENSIVE (20324) ALT (SGPT) 38 [iU]/L (Normal) Range: 0-44 AST (SGOT) 47 [iU]/L (Abnormal) Range: 0-40 Alkaline Phosphatase, S 72 [iU]/L (Normal) Range: 25-150 Bilirubin, Total 0.4 mg/dL (Normal) Range: 0.0-1.2 A/G Ratio 2.0 (Normal) Range: 1.1-2.5 Globulin, Total 2.3 g/dL (Normal) Range: 1.5-4.5 Albumin, Serum 4.6 g/dL (Normal) Range: 3.5-5.5 Protein, Total, Serum 6.9 g/dL (Normal) Range: 6.0-8.5 Calcium, Serum 9.5 mg/dL (Normal) Range: 8.7-10.2 Carbon Dioxide, Total 23 mmol/L (Normal) Range: 20-32 Comments: Effective September 24, 2012, the reference interval for Carbon Dioxide, Total will be changing to: 0 - 7 days 18 - 28 8 - 30 days 17 - 27 31 d - 5 months 15 - 26 6 m - up to 1 year - 25 1 - 12 years 17 - 26 > 12 years 19 - 28 Chloride, Serum 100 mmol/L (Normal) Range: 97-108 Potassium, Serum 4.2 mmol/L (Normal) Range: 3.5-5.2 BUN/Creatinine Ratio 17 (Normal) Range: 9-20 Sodium, Serum 136 mmol/L (Normal) Range: 134-144 eGFR If Africn Am 102 mL/min/1.73 (Normal) eGFR If NonAfricn Am 88 mL/min/1.73 (Normal) Creatinine, Serum 1.02 mg/dL (Normal) Range: 0.76-1.27 BUN 17 mg/dL (Normal) Range: 6-24 Glucose, Serum 90 mg/dL (Normal) Range: 65-99 [id number] LIPID PANEL ([id number]) Comments: PATIENT NOT FASTINGPERFORMED BY: [facility]EC[facility] [id number] LDL/HDL Ratio 2.6 {ratio_units} (Normal) Range: 0.0-3.6 LDL Cholesterol Calc 113 mg/dL (Abnormal) Range: 0-99 VLDL Cholesterol Nii 18 mg/dL (Normal) Range: 5-40 HDL Cholesterol 43 mg/dL (Normal) Comments: According to ATP-III Guidelines, HDL-C >59 mg/dL is considered anegative risk factor for CHD. Triglycerides 90 mg/dL (Normal) Range: 0-149 Cholesterol, Total 174 mg/dL (Normal) Range: 100-199 18-Acu-393267:59 HgA1C , Office (45451) HgA1C , Office 5.6 % (Normal) Range: 4.6 - 7.1 67-Tlv-083881:52 LIPID PANEL (08146) Comments: PATIENT WAS FASTINGPERFORMED BY: [facility] [id number] LDL/HDL Ratio 2.6 {ratio_units} (Normal) Range: 0.0-3.6 LDL Cholesterol Calc 108 mg/dL (Abnormal) Range: 0-99 VLDL Cholesterol Nii 43 mg/dL (Abnormal) Range: 5-40 HDL Cholesterol 42 mg/dL (Normal) Comments: According to ATP-III Guidelines, HDL-C >59 mg/dL is considered anegative risk factor for CHD. Triglycerides 214 mg/dL (Abnormal) Range: 0-149 Cholesterol, Total 193 mg/dL (Normal) Range: 100-199 21-Nae-069389:52 METABOLIC PANEL, Comments: PATIENT WAS FASTINGPERFORMED BY: [facility] Yprazi6602 [facility] [id number] Information: [id number] COMPREHENSIVE (39066) ALT (SGPT) 54 [iU]/L (Normal) Range: 0-55 AST (SGOT) 43 [iU]/L (Abnormal) Range: 0-40 Alkaline Phosphatase, S 68 [iU]/L (Normal) Range: 25-150 Bilirubin, Total 0.5 mg/dL (Normal) Range: 0.0-1.2 A/G Ratio 2.1 (Normal) Range: 1.1-2.5 Globulin, Total 2.2 g/dL (Normal) Range: 1.5-4.5 Albumin, Serum 4.6 g/dL (Normal) Range: 3.5-5.5 Protein, Total, Serum 6.8 g/dL (Normal) Range: 6.0-8.5 Calcium, Serum 9.4 mg/dL (Normal) Range: 8.7-10.2 Carbon Dioxide, Total 23 mmol/L (Normal) Range: 20-32 Chloride, Serum 101 mmol/L (Normal) Range: 97-108 Potassium, Serum 4.2 mmol/L (Normal) Range: 3.5-5.2 Sodium, Serum 140 mmol/L (Normal) Range: 134-144 BUN/Creatinine Ratio 12 (Normal) Range: 9-20 eGFR If Africn Am 103 mL/min/1.73 (Normal) Comments: Note: A persistent eGFR <60 mL/min/1.73 m2 (3 months or more) mayindicate chronic kidney disease. An eGFR >59 mL/min/1.73 m2 with anelevated urine protein also may indicate chronic kidney disease.Calculated using CKD-EPI formula. eGFR If NonAfricn Am 89 mL/min/1.73 (Normal) Creatinine, Serum 1.02 mg/dL (Normal) Range: 0.76-1.27 BUN 12 mg/dL (Normal) Range: 6-24 Glucose, Serum 87 mg/dL (Normal) Range: 65-99 :52 TSH (28582) Comments: PATIENT WAS FASTINGPERFORMED BY: Mad [facility] [place] [address] [id number] TSH 3.800 {uIU/mL} Range: 0.450-4.500 (Normal) Actin (Smooth Muscle) 3 {Units} (Normal) Comments: PERFORMED BY: [address] [id number] :32 Antibody Range: 0-19 Comments: Negative 0 - 19Weak positive 20 - 30Moderate to strong positive >30.Actin Antibodies are found in 52-85% of patients withautoimmune hepatitis or chronic active h epatitis andin 22% of patients with primary biliary cirrhosis. :32 Cytomegalovirus (CMV) Ab, IgM Comments: PERFORMED BY: WebMDInspira [facility] Center WoodburyEpkktq2826 [facility] [id number] CMV Ab, IgM Cytomegalovirus <0.9 {index} (Normal) Range: 0.0-0.8 Comments: Negative <0.9Equivocal 0.9 - 1.0Positive >1.0 :32 EBV Acute Infection Antibodies Comments: PERFORMED BY: [facility]6370 [facility] [id number] EBV Nuclear Antigen 5.5 {AI} (Abnormal) Range: 0.0-0.8 Ab, IgG Comments: Negative <0.9Equivocal 0.9 - 1.0Positive >1.0 Interpretation: SPRCS (Normal) Comments: EBV Interpretation Chart.Interpretation VCA-IgM EA-IgG VCA-IgG NA-ABS.Susceptible - - - -Acute Infection + +or- + -Convalescent Phas e +or- +or- + +Chronic or Reactivated - + + +or-Old Infection - - +or- ++ Antibody Present - Antibody Absent EBV Ab VCA, IgG 1.7 {AI} (Abnormal) Range: 0.0-0.8 Comments: Negative <0.9Equivocal 0.9 - 1.0Positive >1.0 EBV Early Antigen 0.2 {AI} (Normal) Range: 0.0-0.8 Ab, IgG Comments: Negative <0.9Equivocal 0.9 - 1.0Positive >1.0 EBV Ab VCA, IgM 0.3 {AI} (Normal) Range: 0.0-0.8 Comments: Negative <0.9Equivocal 0.9 - 1.0Positive >1.0 Ferritin, Serum 259 ng/mL (Normal) Comments: PERFORMED BY: [employer] [facility] [id number] :32 Range: 22-322 Comments: Effective July 20, 2009, Ferritin will bechanging to the engageSimply ECLIA methodology. Thereference interval will be changing to: ng/mLMales: 30 - 400Females: 13 - 150 GGT 33 [iU]/L (Normal) Comments: PERFORMED BY: [employer] [facility] [id number] :32 Range: 0-65 :32 Hepatic Function Panel (7) Comments: PERFORMED BY: [employer] [facility] [id number] Alkaline Phosphatase, S 75 [iU]/L (Normal) Range: 25-150 ALT (SGPT) 47 [iU]/L (Normal) Range: 0-55 AST (SGOT) 37 [iU]/L (Normal) Range: 0-40 Bilirubin, Direct 0.11 mg/dL (Normal) Range: 0.00-0.40 Albumin, Serum 4.6 g/dL (Normal) Range: 3.5-5.5 Bilirubin, Total 0.4 mg/dL (Normal) Range: 0.1-1.2 Protein, Total, Serum 7.0 g/dL (Normal) Range: 6.0-8.5 :32 Hepatitis Panel (4) Comments: PERFORMED BY: [employer] [facility] [id number] Hep C Virus Ab <0.1 {s/co_ratio} Range: 0.0-0.9 (Normal) Comments: Negative: < 0.8Indeterminate 0.8 - 0.9Positive: > 0.9.In order to reduce the incidence of a false positiveresult, the CDC recommends that all s/co ratiosbetween 1.0 and 10.9 be confirmed with additionalRIBA or PCR testing. Hep B Core Ab, IgM Negative (Normal) HBsAg Screen Negative (Normal) Hep A Ab, IgM Negative (Normal) 17-Jun-2009 Liver-Kidney Microsomal <1.0 {Units} (Normal) Comments: PERFORMED BY: [employer]6370 [facility] [id number] 11:32 Ab Range: 0.0-20.0 Comments: Negative 0.0 - 20.0Equivocal 20.1 - 24.9Positive >24.9.LKM type 1 antibodies are detected in patients withautoimmune hepatitis type 2 and in up to 8% ofpatients with chronic HCV infection. 17-Jun-2009 Mitochondrial (M2) <20.0 {Units} Comments: PERFORMED BY: [employer]6370 [facility] [id number] 11:32 Antibody (Normal) Range: 0.0-20.0 Comments: Negative 0.0 - 20.0Equivocal 20.1 - 24.9Positive >24.9.Mitochondrial (M2) Antibodies are found in 90-96% ofpatients with primary biliary cirrhosis. 17-Jun-2009 Transferrin 279 mg/dL (Normal) Comments: PERFORMED BY: [employer] Sddxjb2416 [facility] [id number] 11:32 Range: 200-370 98-Haz-685914:08 Glucose, PP/2 Hour Comments: PATIENT NOT FASTINGPERFORMED BY: [employer] Crhloh2050 [facility] [id number] Information: [id number] 75G DRAWN@ 1 045AM (42778) Glucose, Two-Hour Postprandial 86 mg/dL (Normal) Range: 65-139 14-May-20098:17 LIVER Radiology Report See Note (Normal) Comments: Exam Number: [id number] ULTRASOUND OF THE RIGHT UPPER QUADRANT Multiple views were obtained. HISTORYThis is a 43-year-old male patient with history of elevated liverfunction tests and right upper quadran t pain. FINDINGSThe pancreas is of homogeneous echotexture. No focal lesion is seen. There is no evidence of cholelithiasis. The gallbladder is notdistended. The gallbladder wall is not thickened. T he common bileduct is not dilated. The liver is not enlarged. It is of coarsened echotexture in keepingwith fatty infiltration. There is a focal area of focal fatty sparingseen in the region of the ga llbladder fossa. This is unchanged fromprior examination dated January 05, 2005. IMPRESSIONThere is no evidence of cholelithiasis. Fatty infiltration of the liver with a focal area of focal fattyspar ing adjacent to the gallbladder fossa. Reported By: BRADLEY DIAS CCP Antibodies IgG/IgA 1 {units} (Normal) Comments: PATIENT WAS FASTINGPERFORMED BY: [employer] [facility] [id number] BY: WebMDInspira Medical Center WoodburyJnxeri8645 [facility] [id number] BY: Web[employer] Ramiro 3:54 [id number] [facility] [id number] Range: 0-19 Comments: Negative <20Weak positive 20 - 39Moderate positive 40 - 59Strong positive >59 Comment: SPRCS (Normal) Comments: PATIENT WAS FASTINGPERFORMED BY: [employer] [facility] [id number] BY: WebMDInspira Medical Center WoodburyVadgmj3877 [facility] [id number] BY: [employer] Ramiro 3:54 [id number] [facility] [id number] Comments: Effective January 05, 2009 order code 288868 CCP IgGAntibodies has been replaced due to an updated reagentversion 3.1. For this reason WebMD has provided youwith a new order code 856218 CCP Antibodies IgG/IgA. 56-Mfb-204759:54 Microscopic Examination Comments: PATIENT WAS FASTINGPERFORMED BY: [employer]ove [facility] [id number] BY: PORSHA [facility] Svwcxq5038 [facility] [id number] BY: [facility] Ramiro [address] [id number] Bacteria None seen (Normal) Mucus Threads Present (Normal) Epithelial Cells (non renal) None seen {/hpf} (Normal) Range: 0 - 10 RBC 0-3 {/hpf} (Normal) Range: 0 - 3 WBC 0-5 {/hpf} (Normal) Range: 0 - 5 23-Ryj-948952:54 SED RATE ERYTHROCYTE Comments: PATIENT WAS FASTINGPERFORMED BY: S7 [employer] Cqs4216 [facility] [id number] BY: PORSHA [facility] Lyoapq5131 [facility] [id number] BY: [facility] Ramiro (07284) [place] [id number] Sedimentation [facility] 4 mm/h (Normal) Range: 0-15 12-Kmz-027895:54 C-REACTIVE PROTEIN Comments: PATIENT WAS FASTINGPERFORMED BY: S7 [employer] Vzo5703 [facility] [id number] BY: PORSHA [facility] Kjnqzo2216 [facility] [id number] BY: [facility] Ramiro (71146) [address] [id number] C-Reactive Protein, Quant 0.5 mg/L (Normal) Range: 0.0-4.9 18-Qyo-287561:54 TSH (69236) Comments: PATIENT WAS FASTINGPERFORMED BY: S7 [employer] Lfg8778 [facility] [id number] BY: PORSHA [facility] Ujrequ8711 [facility] [id number] BY: [facility] R[place]ro [address] [id number] TSH 2.740 {uIU/mL} (Normal) Range: 0.450-4.500 Comments: Effective May 04, 2009, TSH reference interval for11 - 19 years will be changing to: 0.450 - 4.500 uIU/mLReference interval for all other ages will NOT be affected. 07-Aab-740475:54 RHEUMATOID FACTOR-QUANT Comments: PATIENT WAS FASTINGPERFORMED BY: S7 [facility] Iky5422 [facility] [id number] BY: [facility] Eswozf7633 [facility] [id number] BY: [facility] Ramiro (41658) [address] [id number] RA Latex Turbid. 8.1 {IU/mL} (Normal) Range: 0.0-13.9 71-Sua-106148:54 ABIMAEL (ANTINUCLEAR ANTIBODY) Comments: PATIENT WAS FASTINGPERFORMED BY: S7 [employer] Pbn3769 [facility] [id number] BY: [facility] Rdagkb4196 [facility] [id number] BY: Money360 [facility] ([address]) [address] [id number] ABIMAEL Direct Negative (Normal) 90-Axh-641668:54 CBC WITH MANUAL DIFF Comments: PATIENT WAS FASTINGPERFORMED BY: S7 [employer] Rsf3962 [facility] [id number] BY: [facility] Csapga8076 [facility] [id number] BY: [facility] Ramiro (34370) [id number] [id number] Baso (Absolute) 0.0 {x10E3/uL} (Normal) Range: 0.0-0.2 Eos (Absolute) 0.1 {x10E3/uL} (Normal) Range: 0.0-0.4 Lymphs (Absolute) 2.2 {x10E3/uL} (Normal) Range: 0.7-4.5 Monocytes(Absolute) 0.6 {x10E3/uL} (Normal) Range: 0.1-1.0 Basos 0 % (Normal) Range: 0-3 Eos 2 % (Normal) Range: 0-7 Lymphs 36 % (Normal) Range: 14-46 Monocytes 10 % (Normal) Range: 4-13 Neutrophils (Absolute) 3.2 {x10E3/uL} (Normal) Range: 1.8-7.8 Neutrophils 52 % (Normal) Range: 40-74 Platelets 236 {x10E3/uL} (Normal) Range: 140-415 Hematocrit 43.4 % (Normal) Range: 36.0-50.0 MCH 32.6 pg (Normal) Range: 27.0-34.0 MCHC 34.7 g/dL (Normal) Range: 32.0-36.0 MCV 94 fL (Normal) Range: 80-98 RDW 12.6 % (Normal) Range: 11.7-15.0 Hemoglobin 15.1 g/dL (Normal) Range: 12.5-17.0 RBC 4.61 {x10E6/uL} (Normal) Range: 4.10-5.60 WBC 6.1 {x10E3/uL} (Normal) Range: 4.0-10.5 :54 PSA (PROSTATE SPECIFIC Comments: PATIENT WAS FASTINGPERFORMED BY: S7 [employer] Wap1704 [facility] [id number] BY: CB [facility] Qtrxed5168 [facility] [id number] BY: BN [facility] Ramiro ANTIGEN) (V76.44) [id number] [facility] [id number] Prostate Specific Ag, 0.7 ng/mL (Normal) Range: 0.0-4.0 Serum Comments: Caridad ECLIA methodology..According to the [place] [employer], Serum PSA shoulddecrease and remain at undetectable levels after radicalprostatectomy. The AUA defines biochemical recurrence a s an initialPSA value 0.2 ng/mL or greater followed by a subsequent confirmatoryPSA value 0.2 ng/mL or greater.Values obtained with different assay methods or kits cannot be usedinterchangeably. Results cannot be interpreted as absolute evidenceof the presence or absence of malignant disease. 87-Dij-452171:54 URINALYSIS, W/ MICRO Comments: PATIENT WAS FASTINGPERFORMED BY: [employer] Spj2495 [facility] [id number] BY: [facility] Esgvbi9630 [facility] [id number] BY: [facility] Ramiro (58624) [address] [id number] Bilirubin Negative (Normal) Microscopic Examination See below: (Normal) Nitrite, Urine Negative (Normal) Occult Blood Negative (Normal) Urobilinogen,Semi-Qn 1.0 mg/dL (Normal) Range: 0.0-1.9 Appearance Clear (Normal) Glucose Negative (Normal) Ketones Negative (Normal) pH 7.0 (Normal) Range: 5.0-7.5 Protein 1+ (Abnormal) Urine-Color Yellow (Normal) WBC Esterase Negative (Normal) Specific Whiteside 1.029 (Normal) Range: 1.005-1.030 :54 MICROALBUMIN: CREATININE Comments: PATIENT WAS FASTINGPERFORMED BY: [employer] Afg9410 [facility] [id number] BY: [facility] Bhgtyy9869 [facility] [id number] BY: [facility] RATIO (07107) AND (95765) [address] [id number] Microalb/Creat Ratio 1.6 {mg/g_creat} (Normal) Range: 0.0-30.0 Creatinine, Urine 289.5 mg/dL (Normal) Range: 22.0-328.0 Microalbumin, Urine 4.5 ug/mL (Normal) Range: 0.0-17.0 :54 METABOLIC PANEL, Comments: PATIENT WAS FASTINGPERFORMED BY: [employer] Skl4636 [facility] [id number] BY: [facility] Imsaer0857 [facility]bl[facility] [id number] BY: BN [facility] Ramiro COMPREHENSIVE (74618) [address] [id number] ALT (SGPT) 58 [iU]/L (Abnormal) Range: 0-55 A/G Ratio 1.7 (Normal) Range: 1.1-2.5 Alkaline Phosphatase, S 71 [iU]/L (Normal) Range: 25-150 AST (SGOT) 42 [iU]/L (Abnormal) Range: 0-40 Bilirubin, Total 0.4 mg/dL (Normal) Range: 0.1-1.2 Albumin, Serum 4.5 g/dL (Normal) Range: 3.5-5.5 Calcium, Serum 9.4 mg/dL (Normal) Range: 8.7-10.2 Globulin, Total 2.6 g/dL (Normal) Range: 1.5-4.5 Protein, Total, Serum 7.1 g/dL (Normal) Range: 6.0-8.5 BUN/Creatinine Ratio 14 (Normal) Range: 8-27 Carbon Dioxide, Total 25 mmol/L (Normal) Range: 20-32 Chloride, Serum 101 mmol/L (Normal) Range: 97-108 Potassium, Serum 4.1 mmol/L (Normal) Range: 3.5-5.2 Sodium, Serum 138 mmol/L (Normal) Range: 135-145 eGFR >59 mL/min/1.73 (Normal) eGFR AfricanAmerican >59 mL/min/1.73 Comments: Note: Persistent reduction for 3 months or more in an eGFR<60 mL/min/1.73 m2 defines CKD. Patients with eGFR values>/=60 mL/min/1.73 m2 may also have CKD if evidence of persistentproteinuria is (Normal) present. Additional information may be found atwww.kdoqi.org. BUN 14 mg/dL (Normal) Range: 5-26 Creatinine, Serum 1.02 mg/dL (Normal) Range: 0.76-1.27 Glucose, Serum 90 mg/dL (Normal) Range: 65-99 76-Fim-342901:54 LIPOPROTEIN, BLD, BY NMR Comments: PATIENT WAS FASTINGPERFORMED BY: Agustina [employer] Iuq5091 Aaron DouglasSaint Alphonsus EagleeiJefferson [facility] [id number] BY: CB [facility] Iabffu2663 [address]iga RoadFormerly [facility], [facility] [id number] BY: BN [facility] (27277) [id number] [facility] [id number] Information: [id number] Large VLDL-P 13.3 nmol/L (Abnormal) Comments: Small LDL-P, LDL Particle Size, Large HDL-P and Large VLDL-Phave been validated by [employer] but not cleared by US FDA;the clinical utility of these test results has not been fully establi shed. Patient Goals SPRCS (Normal) Comments: High Risk: LDL-P <1000Secondary goal: Small LDL-P <527Moderately High-Risk: LDL-P <1300Secondary goal: Small LDL-P <527 HDL-C 34 mg/dL (Abnormal) Large HDL-P < 0.7 umol/L (Abnormal) LDL Particle Size 19.7 nm (Abnormal) Comments: .Small (Pattern B) 18.0 - 20.5Large (Pattern A) 20.6 - 23.0. Triglycerides 189 mg/dL (Abnormal) Cholesterol, Total 150 mg/dL (Normal) LDL-C 78 mg/dL (Normal) Comments: .Optimal < 100Above optimal 100 - 129Borderline 130 - 159High 160 - 189Very high > 189. Small LDL-P 1035 nmol/L (Abnormal) Comments: .Low < 117Moderate 117 - 526Borderline 527 - 839High > 839. LDL-P 1362 nmol/L (Abnormal) Comments: .Optimal < 1000Above optimal 1000 - 1299Borderline 1300 - 1599High 1600 - 2000Very high > 2000. 84-Zhf-280101:26 CBCD,SMEAR DIFF BAND 4 % (Normal) Range: 0-5 CELLS COUNTED 100 (Normal) EOS 5 % (Normal) Range: 0-5 HCT 41.4 % (Normal) Range: 40-54 HGB 14.6 g/dL (Normal) Range: 14.0-18.0 LYMPH 25 % (Normal) Range: 19-41 MCH 32.0 pg (Normal) Range: 27.0-32.0 MCHC 35.2 g/dL (Normal) Range: 32-36 MCV 90.9 fL (Normal) Range: 80-94 MONOCYTE 9 % (Normal) Range: 0-10 PLT 253 K/mm3 (Normal) Range: 150-450 PLT EST SeeNote (Normal) Comments: Result: ADEQUATE RBC 4.56 {M/mm3} (Abnormal) Range: 4.6-6.2 RDW 12.1 % (Normal) Range: 11.6-14.6 RED CELL MORPH SeeNote {NORMAL} (Normal) Comments: Result: NORM C+C SEGS 57 % (Normal) Range: 47-70 WBC 8.0 K/mm3 (Normal) Range: 4.4-11.0 :26 COMP METABOLIC A/G 1.2 {RATIO} (Normal) Range: 0.9-2.4 ALB 3.7 g/dL (Normal) Range: 3.4-5.0 ALK P 74 U/L (Normal) Range: 50-136 ALT 70 U/L (Abnormal) Range: 30-65 AST 31 U/L (Normal) Range: 15-37 BUN 16 mg/dL (Normal) Range: 7-18 BUN/CRE 14.5 {RATIO} (Normal) Range: 10-20 CA 8.6 mg/dL (Normal) Range: 8.5-10.1 CL 103 mmol/L (Normal) Range: 98-107 CO2 26.7 mmol/L (Normal) Range: 21.0-32.0 CREAT,SERUM 1.1 mg/dL (Normal) Range: 0.8-1.3 EST GFR 79 mL/min (Normal) EST GFR - AA 96 mL/min (Normal) GAP 6 (Normal) Range: 5-15 GLOB 3.1 g/dL (Normal) Range: 2.7-4.2 GLU 93 mg/dL (Normal) Range: 70-110 K 3.6 mmol/L (Normal) Range: 3.5-5.1 NA 136 mmol/L (Normal) Range: 136-145 T BILI 0.33 mg/dL (Normal) Range: 0.00-1.00 T PROT 6.8 g/dL (Normal) Range: 6.4-8.2 :26 MICROALB:CRE UR MALB:CREAT 3.2 {mg/g_CRE} (Normal) MICROALBUMIN,UR 7.3 mg/L (Normal) UR CREAT 223.6 mg/dL (Normal) 59-Yhw-953793:26 TSH 3.56 {uIU/mL} (Normal) Range: 0.34-4.82 21-Ayj-880386:07 Upper Respiratory Culture Comments: Clinical Information: SRC:TH PERFORMED BY: PORSHA [facility] Kjcaau1806 Efrain Choi [place] [id number] Result 1 RRF (Normal) Comments: Routine respiratory barbara Upper Respiratory Culture Final report (Normal) :30 Rapid Strep Test, Office (34437) Comments: negative Rapid Strep Test, Office Negative (Normal) Comments: AW :45 CBCD,SMEAR DIFF CELLS COUNTED 100 (Normal) HCT 42.3 % (Normal) Range: 40-54 HGB 14.9 g/dL (Normal) Range: 14.0-18.0 LYMPH 32 % (Normal) Range: 19-41 MCH 32.0 pg (Normal) Range: 27.0-32.0 MCHC 35.2 g/dL (Normal) Range: 32-36 MCV 90.8 fL (Normal) Range: 80-94 MONOCYTE 5 % (Normal) Range: 0-10 PLT 287 K/mm3 (Normal) Range: 150-450 PLT EST SeeNote (Normal) Comments: Result: ADEQUATE RBC 4.67 {M/mm3} (Normal) Range: 4.6-6.2 RDW 12.3 % (Normal) Range: 11.6-14.6 RED CELL MORPH SeeNote {NORMAL} (Normal) Comments: Result: NORM C+C SEGS 63 % (Normal) Range: 47-70 WBC 8.0 K/mm3 (Normal) Range: 4.4-11.0 :45 COMP METABOLIC A/G 1.6 {RATIO} (Normal) Range: 0.9-2.4 ALB 4.3 g/dL (Normal) Range: 3.4-5.0 ALK P 65 U/L (Normal) Range: 50-136 ALT 105 [iU]/L (Abnormal) Range: 30-65 AST 72 U/L (Abnormal) Range: 15-37 BUN 15 mg/dL (Normal) Range: 7-18 BUN/CRE 13.6 {RATIO} (Normal) Range: 10-20 CA 9.0 mg/dL (Normal) Range: 8.5-10.1 CL 102 mmol/L (Normal) Range: 98-107 CO2 28.9 mmol/L (Normal) Range: 21.0-32.0 Comments: Please Note Reference Interval Change CREAT,SERUM 1.1 mg/dL (Normal) Range: 0.8-1.3 GAP 8 (Normal) Range: 5-15 GLOB 2.7 g/dL (Normal) Range: 2.7-4.2 Comments: Please Note Reference Interval Change GLU 90 mg/dL (Normal) Range: 70-110 K 3.7 mmol/L (Normal) Range: 3.5-5.1 NA 139 mmol/L (Normal) Range: 136-145 T BILI 0.65 mg/dL (Normal) Range: 0.00-1.00 T PROT 7.0 g/dL (Normal) Range: 6.4-8.2 :45 LIPID CHOL 129 mg/dL (Normal) Comments: <200 mg/dL Desirable 200-240 mg/dL Borderline >240 mg/dL High Risk HDL 32 mg/dL (Abnormal) Comments: Reference Range HDL <40 mg/dL Low HDL Cholesterol HDL >or= 60 mg/dL High HDL Cholesterol LDL 66 mg/dL (Normal) Range: 0-130 TRIG 155 mg/dL (Normal) Comments: Serum Triglycerides Reference Interval Normal <150 mg/dL Borderline high 150 - 199 mg/dL High 200 - 499 mg/dL Very High > or = 500 mg/dL VLDL 31 mg/dL (Normal) Range: -40 :32 GLUP 111 mg/dL (Normal) Comments: GLU,2HPPG 75gm GLUC PPG GLUP from 0706:[id number]. :23 LIPID CHOL 125 mg/dL (Normal) Comments: <200 mg/dL Desirable 200-240 mg/dL Borderline >240 mg/dL High Risk HDL 38 mg/dL (Normal) Comments: Reference Range HDL <40 mg/dL Low HDL Cholesterol HDL >or= 60 mg/dL High HDL Cholesterol LDL 68 mg/dL (Normal) Range: 0-130 TRIG 95 mg/dL (Normal) Comments: Serum Triglycerides Reference Interval Normal <150 mg/dL Borderline high 150 - 199 mg/dL High 200 - 499 mg/dL Very High > or = 500 mg/dL VLDL 19 mg/dL (Normal) Range: -40 :23 LIVER ALB 4.2 g/dL (Normal) Range: 3.4-5.0 ALK P 65 U/L (Normal) Range: 50-136 ALT 96 [iU]/L (Abnormal) Range: 30-65 AST 54 U/L (Abnormal) Range: 15-37 D BILI 0.11 mg/dL (Normal) Range: 0.00-0.30 T BILI 0.56 mg/dL (Normal) Range: 0.00-1.00 T PROT 7.0 g/dL (Normal) Range: 6.4-8.2 :27 BMP BUN 18 mg/dL (Normal) Range: 7-18 BUN/CRE 16.4 {RATIO} (Normal) Range: 10-20 CA 9.2 mg/dL (Normal) Range: 8.5-10.1 CL 102 mmol/L (Normal) Range: 98-107 CO2 28.7 mmol/L (Normal) Range: 22.0-29.0 CREAT,SERUM 1.1 mg/dL (Normal) Range: 0.8-1.3 GAP 10 (Normal) Range: 5-15 GLU 79 mg/dL (Normal) Range: 70-110 K 4.1 mmol/L (Normal) Range: 3.5-5.1 NA 141 mmol/L (Normal) Range: 136-145 :27 LIVER ALB 4.6 g/dL (Normal) Range: 3.4-5.0 ALK P 59 U/L (Normal) Range: 50-136 ALT 138 [iU]/L (Abnormal) Range: 30-65 AST 60 U/L (Abnormal) Range: 15-37 D BILI 0.12 mg/dL (Normal) Range: 0.00-0.30 T BILI 0.66 mg/dL (Normal) Range: 0.00-1.00 T PROT 7.4 g/dL (Normal) Range: 6.4-8.2 :27 PFLIP CHOL 112 mg/dL (Normal) Comments: <200 mg/dL Desirable 200-240 mg/dL Borderline >240 mg/dL High Risk HDL 38 mg/dL (Normal) Comments: Reference Range HDL <40 mg/dL Low HDL Cholesterol HDL >or= 60 mg/dL High HDL Cholesterol LDL 55 mg/dL (Normal) Range: 0-130 TRIG 94 mg/dL (Normal) Comments: Serum Triglycerides Reference Interval Normal <150 mg/dL Borderline high 150 - 199 mg/dL High 200 - 499 mg/dL Very High > or = 500 mg/dL VLDL 19 mg/dL (Normal) Range: 5-40 Plan of Care Name Dates Details Instructions Body mass index 28.0-28.9, adult : Follow up if no improvement or if symptoms worsen Indication: Body mass index 28.0-28.9, adult Left tennis elbow : Lateral epicondyle information Indication: Left tennis elbow Smoker : Eprescribed prescriptions ([id number]) Indication: Smoker Low back pain : Follow up in 1 week Indication: Low back pain Constipation, acute : Constipation *: constipation Indication: Constipation, acute Need for prophylactic vaccination and inoculation against influenza (Renamed from Need for immunization against influenza) : Eprescribed prescriptions ([id number]) Indication: Need for prophylactic vaccination and inoculation against influenza (Renamed from Need for immunization against influenza) Smoker : Follow up if no improvement or if symptoms worsen Indication: Smoker Rash of hands : Eprescribed prescriptions (G8553) Indication: Rash of hands Abnormal glucose tolerance test (Renamed from Abnormal glucose tolerance test (GTT)) : Follow up in 4 months Indication: Abnormal glucose tolerance test (Renamed from Abnormal glucose tolerance test (GTT)) Dysthymic : Continue Current Prescription(s) Indication: Dysthymic Abnormal glucose tolerance test (Renamed from Abnormal glucose tolerance test (GTT)) : *Diabetes Education Indication: Abnormal glucose tolerance test (Renamed from Abnormal glucose tolerance test (GTT)) Hyperlipidemia : Cholesterol mgmt Indication: Hyperlipidemia GERD (gastroesophageal reflux disease) : GERD Education Indication: GERD (gastroesophageal reflux disease) Pain and swelling of knee, right : Follow up if no improvement or if symptoms worsen Indication: Pain and swelling of knee, right Abnormal glucose tolerance test (Renamed from Abnormal glucose tolerance test (GTT)) : Follow up in 4 months Indication: Abnormal glucose tolerance test (Renamed from Abnormal glucose tolerance test (GTT)) Post traumatic stress disorder : Continue Current Prescription(s) Indication: Post traumatic stress disorder Hyperlipidemia : *Cholesterol - Nonprescription Treatment Indication: Hyperlipidemia Hyperlipidemia : Cholesterol mgmt Indication: Hyperlipidemia GERD (gastroesophageal reflux disease) : GERD Education Indication: GERD (gastroesophageal reflux disease) Abnormal glucose tolerance test (Renamed from Abnormal glucose tolerance test (GTT)) : *Diabetes Education Indication: Abnormal glucose tolerance test (Renamed from Abnormal glucose tolerance test (GTT)) Muscle spasm : Eprescribed prescriptions (G8553) Indication: Muscle spasm Influenza A (H1N1) : Flu (Influenza) *: flu Indication: Influenza A (H1N1) Flu-like symptoms : Eprescribed prescriptions (G8553) Indication: Flu-like symptoms Abnormal glucose tolerance test (Renamed from Abnormal glucose tolerance test (GTT)) : Reviewed Lab Indication: Abnormal glucose tolerance test (Renamed from Abnormal glucose tolerance test (GTT)) Abnormal glucose tolerance test (Renamed from Abnormal glucose tolerance test (GTT)) : Follow up in 4 months Indication: Abnormal glucose tolerance test (Renamed from Abnormal glucose tolerance test (GTT)) Abnormal glucose tolerance test (Renamed from Abnormal glucose tolerance test (GTT)) : *Diabetes Education Indication: Abnormal glucose tolerance test (Renamed from Abnormal glucose tolerance test (GTT)) Fatty liver : Diet, Exercise, and Wt loss Indication: Fatty liver Smoker : Eprescribed prescriptions (G8553) Indication: Smoker Otitis, right : Continue Current Prescription(s) Indication: Otitis, right Hearing loss, unspecified laterality : Follow up if no improvement or if symptoms worsen Indication: Hearing loss, unspecified laterality Otitis, right : *URI Treatment Indication: Otitis, right Otitis, right : *URI Symptoms Indication: Otitis, right Otitis, right : *Antibiotic Usage Education - Male Indication: Otitis, right GERD (gastroesophageal reflux disease) : GERD Education Indication: GERD (gastroesophageal reflux disease) Post traumatic stress disorder : Continue Current Prescription(s) Indication: Post traumatic stress disorder Chronic obstructive asthma with acute exacerbation : Follow up in 1 month- repeat spirometry Indication: Chronic obstructive asthma with acute exacerbation Hyperlipidemia : Cholesterol mgmt Indication: Hyperlipidemia BRONCHITIS, NOT SPECIFIED ACUTE OR CHRONIC (490.) : *URI Treatment Indication: BRONCHITIS, NOT SPECIFIED ACUTE OR CHRONIC (490.) BRONCHITIS, NOT SPECIFIED ACUTE OR CHRONIC (490.) : *URI Symptoms Indication: BRONCHITIS, NOT SPECIFIED ACUTE OR CHRONIC (490.) BRONCHITIS, NOT SPECIFIED ACUTE OR CHRONIC (490.) : *Antibiotic Usage Education - Female Indication: BRONCHITIS, NOT SPECIFIED ACUTE OR CHRONIC (490.) Flu-like symptoms : *Antibiotic Usage Education - Male Indication: Flu-like symptoms Hyperlipidemia : Follow up in 2 weeks Indication: Hyperlipidemia Hyperlipidemia : Reviewed Lab Indication: Hyperlipidemia Asthma, intrinsic, with status asthmaticus : Follow up in 6 months Indication: Asthma, intrinsic, with status asthmaticus GERD (gastroesophageal reflux disease) : GERD Education Indication: GERD (gastroesophageal reflux disease) Fatty liver : Eprescribed prescriptions (G8553) Indication: Fatty liver Cold virus : Laryngitis Education Indication: Cold virus Cold virus : Follow up if no improvement or if symptoms worsen Indication: Cold virus Ileus : Follow up if no improvement or if symptoms worsen Indication: Ileus Ileus : Reviewed Diagnostic Tests Indication: Ileus Muscle spasm of back : Reviewed Diagnostic Tests Indication: Muscle spasm of back Flank pain : Reviewed Lab Indication: Flank pain Flank pain : Follow up in 2 weeks Indication: Flank pain Flank pain : Follow up if no improvement or if symptoms worsen Indication: Flank pain Flank pain : Reviewed Lab Indication: Flank pain Muscle spasm of back : Reviewed Diagnostic Tests Indication: Muscle spasm of back Ileus : Reviewed Diagnostic Tests Indication: Ileus Shoulder joint pain, unspecified laterality : Follow up in 2 days Indication: Shoulder joint pain, unspecified laterality Sinusitis, acute : *Antibiotic Usage Education - Male Indication: Sinusitis, acute GERD (gastroesophageal reflux disease) : GERD Education Indication: GERD (gastroesophageal reflux disease) Hyperlipidemia : Cholesterol mgmt Indication: Hyperlipidemia Dysthymic : Health Maintenance: Controlling Cholesterol: arteries Indication: Dysthymic Hyperlipidemia : Follow up in 6 months Indication: Hyperlipidemia Hyperlipidemia : Cholesterol mgmt Indication: Hyperlipidemia GERD (gastroesophageal reflux disease) : GERD Education Indication: GERD (gastroesophageal reflux disease) Chronic obstructive asthma with acute exacerbation : Continue Current Prescription(s) Indication: Chronic obstructive asthma with acute exacerbation Chronic obstructive asthma with acute exacerbation : 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 Indication: Chronic obstructive asthma with acute exacerbation Dysthymic : Follow up in 3 weeks and do gen med as well Indication: Dysthymic Post traumatic stress disorder : 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 Indication: Post traumatic stress disorder Fatty liver : Follow up in 4 months Indication: Fatty liver Elevated LFTs : Diet, Exercise, and Wt loss Indication: Elevated LFTs Asthma, intrinsic, with status asthmaticus : Continue Current Prescription(s) Indication: Asthma, intrinsic, with status asthmaticus Hyperlipidemia : *Cholesterol - Nonprescription Treatment Indication: Hyperlipidemia Hyperlipidemia : Cholesterol mgmt Indication: Hyperlipidemia Fatty liver : Diet, Exercise, and Wt loss Indication: Fatty liver GERD (gastroesophageal reflux disease) : GERD Education Indication: GERD (gastroesophageal reflux disease) Dysthymic : Anxiety: emotional health Indication: Dysthymic Asthma, intrinsic, with status asthmaticus : Follow up in 4 months Indication: Asthma, intrinsic, with status asthmaticus Fatty liver : Continue Current Prescription(s) Indication: Fatty liver Fatty liver : Diet, Exercise, and Wt loss Indication: Fatty liver GERD (gastroesophageal reflux disease) : GERD Education Indication: GERD (gastroesophageal reflux disease) Dysthymic : Follow up in 1 month Indication: Dysthymic Dysthymic : Continue Current Prescription(s) Indication: Dysthymic Hyperlipidemia : FOLLOW UP IN 6 MONTHS- parvin liver and wt loss Indication: Hyperlipidemia Elevated LFTs : Diet, Exercise, and Wt loss Indication: Elevated LFTs Fatty liver : Diet, Exercise, and Wt loss Indication: Fatty liver GERD (gastroesophageal reflux disease) : GERD Education Indication: GERD (gastroesophageal reflux disease) Hyperlipidemia : CHOLESTEROL MGMT. Indication: Hyperlipidemia Hyperlipidemia : *Cholesterol - Nonprescription Treatment Indication: Hyperlipidemia Hyperlipidemia : *Cholesterol - Medication Side Effects Indication: Hyperlipidemia Fatty liver : FOLLOW UP IN 6 MONTHS Indication: Fatty liver Hyperlipidemia : *Cholesterol - Nonprescription Treatment Indication: Hyperlipidemia Hyperlipidemia : CHOLESTEROL MGMT. Indication: Hyperlipidemia GERD (gastroesophageal reflux disease) : GERD Education Indication: GERD (gastroesophageal reflux disease) Elevated LFTs : Diet, Exercise, and Wt loss Indication: Elevated LFTs Fatty liver : Diet, Exercise, and Wt loss Indication: Fatty liver Hyperlipidemia : CHOLESTEROL MGMT. 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 Indication: Hyperlipidemia Hyperlipidemia : *Cholesterol - Nonprescription Treatment Indication: Hyperlipidemia Hyperlipidemia : *Cholesterol - Medication Side Effects Indication: Hyperlipidemia GERD (gastroesophageal reflux disease) : GERD Education Indication: GERD (gastroesophageal reflux disease) Fatty liver : Diet, Exercise, and Wt loss Indication: Fatty liver Dysthymic : Continue Current Prescription(s) Indication: Dysthymic Elevated LFTs : Reviewed Diagnostic Tests Indication: Elevated LFTs Pain in unspecified joint : Reviewed Diagnostic Tests Indication: Pain in unspecified joint Hyperlipidemia : CHOLESTEROL MGMT. Indication: Hyperlipidemia Hyperlipidemia : *Cholesterol - Nonprescription Treatment Indication: Hyperlipidemia Hyperlipidemia : *Cholesterol - Medication Side Effects Indication: Hyperlipidemia Abnormal EKG : Reviewed Diagnostic Tests Indication: Abnormal EKG GERD (gastroesophageal reflux disease) : GERD Education Indication: GERD (gastroesophageal reflux disease) Dysthymic : FOLLOW UP IN 2 WEEKS Indication: Dysthymic Elevated LFTs : Diet, Exercise, and Wt loss Indication: Elevated LFTs Elevated blood-pressure reading without diagnosis of hypertension : Diet, Exercise, and Wt loss Indication: Elevated blood-pressure reading without diagnosis of hypertension Elevated blood-pressure reading without diagnosis of hypertension : HTN/CAD Red Flags Indication: Elevated blood-pressure reading without diagnosis of hypertension GERD (gastroesophageal reflux disease) : GERD Education Indication: GERD (gastroesophageal reflux disease) Hyperlipidemia : CHOLESTEROL MGMT. Indication: Hyperlipidemia Hyperlipidemia : Cholesterol - Medication Side Effects Indication: Hyperlipidemia Hyperlipidemia : Cholesterol - Nonprescription Treatment Indication: Hyperlipidemia GERD (gastroesophageal reflux disease) : GERD Education Indication: GERD (gastroesophageal reflux disease) Hyperlipidemia : CHOLESTEROL MGMT. Indication: Hyperlipidemia Hyperlipidemia : Cholesterol - Medication Side Effects Indication: Hyperlipidemia Hyperlipidemia : Cholesterol - Nonprescription Treatment Indication: Hyperlipidemia Sinusitis, acute : *URI Treatment Indication: Sinusitis, acute Sinusitis, acute : URI Symptoms Indication: Sinusitis, acute Otalgia, unspecified ear : Antibiotic Usage Education - Male Indication: Otalgia, unspecified ear Elevated blood-pressure reading without diagnosis of hypertension : Diet, Exercise, and Wt loss Indication: Elevated blood-pressure reading without diagnosis of hypertension Elevated blood-pressure reading without diagnosis of hypertension : BP MONITORING - SELF Indication: Elevated blood-pressure reading without diagnosis of hypertension Pharyngitis, acute : *URI Treatment Indication: Pharyngitis, acute Pharyngitis, acute : Sore throat: diagnosis and treatment Indication: Pharyngitis, acute Elevated blood-pressure reading without diagnosis of hypertension : FOLLOW UP IN 2 MONTHS Indication: Elevated blood-pressure reading without diagnosis of hypertension Elevated blood-pressure reading without diagnosis of hypertension : BP MONITORING - SELF Indication: Elevated blood-pressure reading without diagnosis of hypertension Elevated blood-pressure reading without diagnosis of hypertension : HTN/CAD Red Flags Indication: Elevated blood-pressure reading without diagnosis of hypertension Elevated blood-pressure reading without diagnosis of hypertension : Diet, Exercise, and Wt loss Indication: Elevated blood-pressure reading without diagnosis of hypertension GERD (gastroesophageal reflux disease) : GERD Education Indication: GERD (gastroesophageal reflux disease) Hyperlipidemia : CHOLESTEROL MGMT. Indication: Hyperlipidemia Hyperlipidemia : Cholesterol - Nonprescription Treatment Indication: Hyperlipidemia Hyperlipidemia : Cholesterol - Medication Side Effects Indication: Hyperlipidemia Dysthymic : Antidepressant Usage Indication: Dysthymic Hyperlipidemia : Cholesterol - Nonprescription Treatment Indication: Hyperlipidemia Hyperlipidemia : Cholesterol - Medication Side Effects Indication: Hyperlipidemia GERD (gastroesophageal reflux disease) : GERD Education Indication: GERD (gastroesophageal reflux disease) Planned Observations CALCIFIDIOL (30303) VIT D 25Indication: Vitamin D deficiency On: :48 Request TSH (THYROID STIMULATING HORMONE) ([id number])Indication: Abnormal glucose tolerance test (Renamed from Abnormal glucose tolerance test (GTT)) On: 42 Request MICROALBUMIN: CREATININE RATIO ([id number]) AND (01153)Indication: Abnormal glucose tolerance test (Renamed from Abnormal glucose tolerance test (GTT)) On: Request METABOLIC PANEL, COMPREHENSIVE ([id number])Indication: Abnormal glucose tolerance test (Renamed from Abnormal glucose tolerance test (GTT)) On: Request LIPID PANEL ([id number])Indication: Hyperlipidemia On: Request CBC with auto diff ([id number])Indication: Abnormal glucose tolerance test (Renamed from Abnormal glucose tolerance test (GTT)) On: Request HGB A1C (29958)Indication: Abnormal glucose tolerance test (Renamed from Abnormal glucose tolerance test (GTT)) On: Request Rapid Flu (40528 x 2)Indication: Other specified viral infection, in conditions classified elsewhere and of unspecified site On: :33 Request Rapid Strep Test, Office ([id number])Indication: Other specified viral infection, in conditions classified elsewhere and of unspecified site On: :33 Request HEPATIC FUNCTION PANEL ([id number])Indication: Elevated LFTs On: :48 Request LIPID PANEL ([id number])Indication: Hyperlipidemia On: 26-Mot-558638:48 Request TSH ([id number])Indication: Hyperlipidemia On: 65-Wpw-635071:25 Request HEPATIC FUNCTION PANEL ([id number])Indication: Elevated LFTs On: 24-Cux-068168:23 Request HEPATIC FUNCTION PANEL ([id number])Indication: Fatty liver On: :52 Request LIPID PANEL ([id number])Indication: Hyperlipidemia On: :49 Request HEPATIC FUNCTION PANEL ([id number])Indication: Elevated LFTs On: :28 Request ANTIMITOCHONDRIAL ANTIBODY ([id number])Indication: Elevated LFTs On: :28 Request TRANSFERRIN ([id number])Indication: Elevated LFTs On: : Request HEPATITIS A, B & C PANELSIndication: Elevated LFTs On: Request GGT (GAMMA GLUTAMYLTRANSFERASE) ([id number])Indication: Elevated LFTs On: : Request FERRITIN ([id number])Indication: Elevated LFTs On: : Request EBV IGM ANTIBODY ([id number])Indication: Elevated LFTs On: Request CMV IGM ANTBDY ([id number])Indication: Elevated LFTs On: Request ASM (ANTI SMOOTH MUSCLE ANTIBODY) ([id number])Indication: Elevated LFTs On: Request ANTI-LIVER/KIDNEY MICROSOMAL ANTIBODY ([id number])Indication: Elevated LFTs On: : Request HEPATIC FUNCTION PANEL ([id number])Indication: Elevated LFTs On: :40 Request Comments: do inone month CCP ANTIBODY ([id number])Indication: Pain in unspecified joint On: 43-Eix-215663:52 Request METABOLIC PANEL, COMPREHENSIVE ([id number])Indication: Pain in unspecified joint On: :52 Request TSH ([id number])Indication: Hyperlipidemia On: :40 Request LIPID PANEL (35162)Indication: Hyperlipidemia On: :40 Request CBC WITH MANUAL DIFF ([id number])Indication: Elevated blood-pressure reading without diagnosis of hypertension On: :40 Request TSH ([id number])Indication: Hyperlipidemia On: 45-Wus-227571:45 Request MICROALBUMIN: CREATININE RATIO ([id number]) AND ([id number])Indication: Elevated blood-pressure reading without diagnosis of hypertension On: :45 Request CBC WITH MANUAL DIFF ([id number])Indication: Elevated blood-pressure reading without diagnosis of hypertension On: :45 Request METABOLIC PANEL, COMPREHENSIVE ([id number])Indication: Elevated blood-pressure reading without diagnosis of hypertension On: :45 Request METABOLIC PANEL, COMPREHENSIVE ([id number])Indication: Hyperlipidemia On: 18-Xhz-944400:10 Request LIPID PANEL ([id number])Indication: Hyperlipidemia On: 79-Dep-960050:10 Request FABIO CULTURE-OTHER ([id number])Indication: Pharyngitis, acute On: :30 Request LIPID PANEL ([id number])Indication: Physical exam On: :17 Request METABOLIC PANEL, COMPREHENSIVE ([id number])Indication: Physical exam On: :17 Request CBC WITH MANUAL DIFF ([id number])Indication: Physical exam On: :17 Request Glucose, PP/2 Hour ([id number])Indication: Tinea cruris On: 94-Wuo-918341:19 Request HEPATIC FUNCTION PANEL ([id number])Indication: Elevated LFTs On: :31 Request Comments: DO IN ONE MONTH LIPID PANEL ([id number])Indication: Hyperlipidemia On: :31 Request Comments: DO IN 1 MONTH METABOLIC PANEL, COMPREHENSIVE ([id number])Indication: Hyperlipidemia On: :18 Request LIPID PANEL ([id number])Indication: Hyperlipidemia On: 5-Adc-539653:18 Request Planned Procedures Radiology - Elbow - LeftBy: Ethel On: 20-Mar-2018 Intent Janneth RYAN Toradol Injection, 30 mg On: 20-Mar-2018 Intent (J1885)By: Janneth Davenport CNP FLAT PLATE OF ABDOMEN ([id number])By: On: 12-Jan-2018 Intent Janneth Davenport CNP Comments: cALL CIM WITH RESULTS Flu Vaccine (Quadrivalent) On: 12-Jan-2018 Intent 36663Cc: Janneth Davenport CNP Comments: Lot #[id number]-L dltd, IMDose prefilled syringegiven by:RAEGAN Mejia reviewed and ABN signed ELECTROCARDIOGRAM, COMPLETE (ECG) On: 01-May-2017 Intent ([id number])By: Brittani Jordan DO Comments: nsr no acute chg Brittani Jordan DO ELECTROCARDIOGRAM, COMPLETE (ECG) On: 29-Aug-2016 Intent (53658)By: Brittani Jordan DO Comments: nsr no acute chg Brittani Jordan DO INJECTION OF TENDON SHEATH On: 24-Aug-2016 Intent ([id number])By: Brittani Jordan DO Comments: left Brittani Jordan DO Aerosol Treatment (09035)By: Sarkis On: 26-Apr-2016 Intent Shari LANG Flu Vaccine (Quadrivalent) On: 10-Dec-2015 Intent [id number]: Brittani Jordan DO Comments: left dltd IMlot [id number], Brittani Macario DO SMOKE/TOBACCO COUNSELNG 3-10 On: 10-Dec-2015 Intent ([id number])By: Brittani Jordan DO, DO, Kathleen Radiology - Chest- PA and LatBy: On: 05-Jun-2015 Intent Brittani Jordan DO, DO, Kathleen Aerosol Treatment ([id number])By: Sarkis On: 23-Feb-2015 Intent Shari LANG EKG ([id number])By: Julian JOSEPH, On: 30-May-2014 Intent Brittani Hodges DO Comments: nsr no acute chg Spirometry ([id number])By: Julian JOSEPH, On: 30-May-2014 Intent Brittani Hodges DO Comments: ok overall Aerosol Treatment ([id number])By: Ethel On: 03-Mar-2014 Intent Jnaneth RYAN Eprescribed prescriptions On: 29-Jul-2013 Intent (G8553)By: Janneth Davenport CNP Toradol Injection, 30 mg On: 29-Jul-2013 Intent (J1885)By: Janneth Davenport CNP Radiology - Lumbar SpineBy: Ethel On: 29-Jul-2013 Intent Janneth RYAN Eprescribed prescriptions On: 29-Jul-2013 Intent (G8553)By: Janneth Davenport CNP CT - Abdomen & Pelvis Stone On: 26-Jul-2013 Intent ProtocolBy: Brittani Jordan DO, DO, Kathleen Toradol Injection, 30 mg On: 25-Jul-2013 Intent (J1885)By: Brittani Jordan DO Comments: Lot #[id number]-R hip, IMDose- prefilled syringegiven by:PRECIOUS KoVIS signed Brittani Jordan DO CT - Abdomen & Pelvis (IV Contrast On: 18-Jun-2013 Intent Needed)By: Brittani Jordan DO, DO, Kathleen EKG ([id number])By: Julian JOSEPH, On: 18-Jun-2013 Intent Brittani Hodges DO Comments: nsr no acute chg Spirometry (90191)By: Julian JOSEPH, On: 18-Jun-2013 Intent Brittani Hodges DO Comments: mild obstruction but has cold right now -- Eprescribed prescriptions On: 18-Jun-2013 Intent (G8553)By: Brittani Jordan DO, DO, Kathleen Eprescribed prescriptions On: 08-Feb-2013 Intent (G8553)By: Melina Hook LPN Spirometry ([id number])By: Julian JOSEPH, On: 20-Sep-2012 Intent Brittani Hodges DO Comments: great Eprescribed prescriptions On: 20-Sep-2012 Intent (G8553)By: Kalyani Hernandez LPN FLU VAC, SPLIT, >3 YEARS, On: 08-Dec-2011 Intent INTRAMUSC (75358)By: Julian JOSEPH, Comments: Lot #[id number]-left deltoidgiven by: PRECIOUS Rizo DO, Brittani IMMUNIZ ADMNIN, 1 VAC, SNGL/COMBO On: 08-Dec-2011 Intent ([id number])By: Brittani Jordan DO, DO, Kathleen Spirometry (08330)By: Julian JOSEPH, On: 08-Aug-2011 Intent Brittani Hodges DO Comments: normal PNEUM VAC ADLT/IMUMNOSPR, On: 08-Aug-2011 Intent SBC/INTRM (53268)By: Julian JOSEPH, Comments: Lot:[id number]:jan 25mt:0.5mlRoute:IMSite:left deltGiven By: PRECIOUS Ackerman DO, Brittani IMMUNIZ ADMNIN, 1 VAC, SNGL/COMBO On: 08-Aug-2011 Intent ([id number])By: Brittani Jordan DO, DO, Kathleen FLU VAC, SPLIT, >3 YEARS, On: 14-Jan-2011 Intent INTRAMUSC (44611)By: Monster LANG, Comments: declined, will get at work Melina Hopkins IMMUNIZ ADMNIN, 1 VAC, SNGL/COMBO On: 14-Jan-2011 Intent ([id number])By: Melina Hook LPN Eprescribed prescriptions On: 18-Aug-2010 Intent (G8553)By: Brittani Jordan DO, DO, Kathleen EKG (81688)By: Julian JOSEPH, On: 18-Aug-2010 Intent Brittani Hodges DO Comments: nsr no chgs-- EKG (92182)By: Julian JOSEPH, On: 16-Jul-2010 Intent Brittani Hodges DO Comments: nsr no acute changes TDAP VACCINE >7 IM ([id number])By: On: 16-Jul-2010 Intent Brittani Jordan DO, DO, Comments: Lot #[id number]-L dltd, IMDose prefilledgiven by:NATHAN Peter Aerosol Treatment (11977)By: Ethel On: 25-Nov-2009 Intent Janneth RYAN Spirometry (63127)By: Julian JOSEPH, On: 15-Oct-2009 Intent Brittani Hodges DO Comments: post aerosol-- sl improvement of obstruciton post aerosol Aerosol Treatment (88173)By: On: 15-Oct-2009 Intent Brittani Jordan DO, DO, Kathleen Spirometry ([id number])By: Julian JOSEPH, On: 15-Oct-2009 Intent Brittani Hodges DO Comments: pre aerosol-- moderate obstruciton present Pulse Oximetry (90063)By: Chris RN, On: 15-Oct-2009 Intent [place] Ultrasound - LiverBy: Julian JOSEPH, On: 11-May-2009 Intent Brittani Hodges DO Echo CompleteBy: Julian JOSEPH, On: 22-Apr-2009 Intent Brittani Hodges DO EKG ([id number])By: Julian JOSEPH, On: 22-Apr-2009 Intent Brittani Hodges DO Comments: INCOMPLETRE RBBB NO ACUTE CHANGES -- CONDUCTION DELAY IS NEW -- NSR EKG (48549)By: Julian JOSEPH, On: 05-Jun-2008 Intent Brittani Hodges DO Comments: nsr no acute changes Toradol Injection, 30 mg On: 04-May-2007 Intent (J1885)By: Brittani Jordan DO Comments: Lot #[id number]-left [id number] by Brittani Rodrigez LPN, DO SPECIMEN HNDLNG/TRNSPRT, OFFC > On: 04-May-2007 Intent LAB ([id number])By: Brittani Jordan DO, DO, Kathleen Planned Medications INJECTION, KETOROLAC TROMETHAMINE, PER 15 MG Ordered: 25-Jul-2013 Pending Brittani Jordan DO, DO, Kathleen INJECTION, KETOROLAC TROMETHAMINE, PER 15 MG Ordered: 29-Jul-2013 Pending Janneth Davenport CNP INJECTION, KETOROLAC TROMETHAMINE, PER 15 MG Ordered: 20-Mar-2018 Pending Janneth Davenport CNP Instructions Name Dates Details Smoker : How to access health information online Indication: Smoker Smoker : How to access health information online - Detail Indication: Smoker Body mass index 28.0-28.9, adult : Patient Instructions Indication: Body mass index 28.0-28.9, adult Need for prophylactic vaccination and inoculation against influenza (Renamed from Need for immunization against influenza) : How to access health information online Indication: Need for prophylactic vaccination and inoculation against influenza (Renamed from Need for immunization against influenza) Need for prophylactic vaccination and inoculation against influenza (Renamed from Need for immunization against influenza) : How to access health information online - Detail Indication: Need for prophylactic vaccination and inoculation against influenza (Renamed from Need for immunization against influenza) Need for prophylactic vaccination and inoculation against influenza (Renamed from Need for immunization against influenza) : Patient Instructions Indication: Need for prophylactic vaccination and inoculation against influenza (Renamed from Need for immunization against influenza) Smoker : How to access health information online Indication: Smoker Smoker : How to access health information online - Detail Indication: Smoker Smoker : Patient Instructions Indication: Smoker Rash of hands : How to access health information online Indication: Rash of hands Rash of hands : How to access health information online - Detail Indication: Rash of hands Rash of hands : Patient Instructions Indication: Rash of hands Smoker : How to access health information online Indication: Smoker Smoker : How to access health information online - Detail Indication: Smoker Smoker : Patient Instructions Indication: Smoker Muscle spasm : How to access health information online Indication: Muscle spasm Muscle spasm : How to access health information online - Detail Indication: Muscle spasm Muscle spasm : Patient Instructions Indication: Muscle spasm Flu-like symptoms : How to access health information online Indication: Flu-like symptoms Flu-like symptoms : How to access health information online - Detail Indication: Flu-like symptoms Flu-like symptoms : Patient Instructions Indication: Flu-like symptoms Elevated LFTs : How to access health information online Indication: Elevated LFTs Elevated LFTs : How to access health information online - Detail Indication: Elevated LFTs Elevated LFTs : Patient Instructions Indication: Elevated LFTs Smoker : How to access health information online Indication: Smoker Smoker : How to access health information online - Detail Indication: Smoker Otitis, right : How to access health information online Indication: Otitis, right Otitis, right : How to access health information online - Detail Indication: Otitis, right Otitis, right : Patient Instructions Indication: Otitis, right Hyperlipidemia : Patient Instructions Indication: Hyperlipidemia Fatty liver : How to access health information online Indication: Fatty liver Fatty liver : How to access health information online - Detail Indication: Fatty liver Fatty liver : Patient Instructions Indication: Fatty liver Fatty liver : How to access health information online Indication: Fatty liver Fatty liver : How to access health information online - Detail Indication: Fatty liver Fatty liver : Patient Instructions Indication: Fatty liver Flank pain : Patient Instructions Indication: Flank pain Sciatica, unspecified laterality : Patient Instructions Indication: Sciatica, unspecified laterality Flank pain : Patient Instructions Indication: Flank pain Dysthymic : Patient Instructions Indication: Dysthymic Other specified viral infection, in conditions classified elsewhere and of unspecified site : Patient Instructions Indication: Other specified viral infection, in conditions classified elsewhere and of unspecified site Chronic obstructive asthma with acute exacerbation : Patient Instructions Indication: Chronic obstructive asthma with acute exacerbation Dysthymic : Patient Instructions: keep working on wt loss for fatty liver reasons Indication: Dysthymic Encounters Annotation/Addendum On: 20-Mar-2018 11:48 Encounter Diagnosis: Left hand weakness End: 20-Mar-2018 11:50 [facility] Office Visit On: 20-Mar-2018 8:43 Encounter Reason: Elbow Problem - Symptoms include elbow pain. Symptoms are located in the left elbow. The pain radiates to the left forearm, left hand and left wrist. Onset was 3 month(s) ago. 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 The activity began 5 day(s) ago., [ADDITIONAL REASON] Constipation - Note for Constipation: Last BM yesterday, has constipation Encounter Diagnosis: End: 12-Jan-2018 9:50 Need for prophylactic vaccination and inoculation against influenza (Renamed from Need for immunization against influenza), Low back pain, Constipation, acute, Screening for prostate cancer [facility] Office Visit On: 15-Nov-2017 9:49 Encounter Diagnosis: Body mass index 28.0-28.9, adult, Smoker, Rectal mass End: 15-Nov-2017 10:15 [facility] Office Visit On: 23-Jun-2017 8:52 Encounter Reason: Rash - Symptoms include skin dryness (hands), pain (itching) and skin redness (hands). The skin rash is located on the left hand and right hand. Onset was 2 week(s) ago. Symptoms are exacerbated by cons End: 23-Jun-2017 9:56 tant allergen contact (new chemical at work). Symptoms are relieved by antihistamines. Note for Rash: Has bilateral hand rash at work uses [employer] works at [employer] systemsEncounter Diagnosis: BMI 29.0-29.9,adult, Smoker, Rash of hands [facility] Office Visit On: 01-May-2017 13:18 Encounter Reason: Follow up for chronic medical issues - The patient feels well with minor complaints, has decreased energy level and is sleeping well. Patient has been compliant with instructions. Current medication use End: 01-May-2017 17:33 : no side effects and compliant with dosing regimen. Patient sleeps 6 hours per night. Nutrition: balanced diet and supplemental vitamins. The medical issues the patient is following up for include All identified problems below, blood sugar issues, depression, gastric reflux, high blood pressure and high cholesterol.Encounter Diagnosis: Smoker, Vitamin D deficiency, Hyperlipidemia, Abnormal glucose tolerance test (Renamed from Abnormal glucose tolerance test (GTT)), GERD (gastroesophageal reflux disease), Dysthymic, Right shoulder pain, unspecified chronicity [facility] Office Visit On: 30-Nov-2016 9:15 Encounter Reason: Insect Bite/Sting - The patient sustained an insect bite/sting to the right leg. This occurred at home. Presenting symptoms included multiple insect bites/stings and generalized itching. Symptoms includ End: 30-Nov-2016 9:51 e multiple insect bites or stings and itching at the site of the bite or sting. Note for Insect bite/sting: Nov 28 was working outside with shorts outdoors got burning and itching of backof rt lower leg. Then developed rt knee swelling and pain. on Nov 28, Nov 29.Encounter Diagnosis: Insect bite of knee, right, Itching, Pain and swelling of knee, right [facility] Office Visit On: 29-Aug-2016 9:22 Encounter Reason: Follow up for chronic medical issues - The patient feels well with minor complaints, has good energy level and is sleeping well. Patient has been compliant with instructions. Current medication use: no End: 29-Aug-2016 16:55 side effects and compliant with dosing regimen. Patient sleeps 6 hours per night. Nutrition: inappropriate diet and supplemental vitamins. The medical issues the patient is following up for include All identified problems below, blood sugar issues, depression, high blood pressure and high cholesterol.Encounter Diagnosis: Smoker, Anxiety (300.00), GERD (gastroesophageal reflux disease), BMI 29.0-29.9,adult, Acute pain of left shoulder, Allergic rhinitis, Hyperlipidemia, Post traumatic stress disorder (309.81), Abnormal glucose tolerance test (Renamed from Abnormal glucose tolerance test (GTT)), Fatty liver, Vitamin D deficiency, Screening for prostate cancer [facility] Office Visit On: 24-Aug-2016 9:19 Encounter Reason: Neck Pain - This condition occurred without any known injury. The activity began 4 day(s) ago. Symptoms include neck pain, neck stiffness, tenderness, impaired range of motion and shoulder pain. Symptom End: 25-Aug-2016 9:53 s are located in the left posterior neck. The pain radiates to the left shoulder and left arm.Encounter Diagnosis: BMI 29.0-29.9,adult, Smoker, Muscle spasm, Biceps tendonitis, left, Supraspinatus tendonitis, left, Acute pain of left shoulder [facility] Office Visit On: 26-Apr-2016 9:33 Encounter Reason: Flu Like Symptoms - Symptoms include chills, body aches, runny nose, postnasal drainage, productive cough, facial pressure, facial pain and headache. Onset was 3 day(s) ago. The patient describes this a End: 26-Apr-2016 10:21 s worsening. Associated symptoms include plugged ear(s), fatigue and chills. Current treatment includes oral decongestants. Previous presentation included nasal congestion, runny nose, productive cough and chills.Encounter Diagnosis: BMI 29.0-29.9,adult, Smoker, Flu-like symptoms, Influenza A (H1N1), Cough [facility] Office Visit On: 22-Jan-2016 10:02 Encounter Reason: Follow up for chronic medical issues - The patient feels well with minor complaints (plugged ears, nasal congestion), has decreased energy level and is sleeping well. Patient has been compliant with ins End: 22-Jan-2016 10:53 tructions. Current medication use: compliant with dosing regimen. Patient sleeps 6 hours per night. Nutrition: balanced diet. The medical issues the patient is following up for include asthma, gastric reflux and other (arthritis)., [ADDITIONAL REASON] Follow up tests - Date: (labs 12/22/15). Encounter Diagnosis: BMI 29.0-29.9,adult, Smoker, Abnormal glucose tolerance test (Renamed from Abnormal glucose tolerance test (GTT)), Fatty liver, Elevated LFTs, Hyperlipidemia, Anxiety (300.00), Post traumatic stress disorder (309.81), Vitamin D deficiency [facility] Office Visit On: 10-Dec-2015 10:52 Encounter Reason: Physical male exam - Last seen less than 1 month ago. General health: feels well with minor complaints, has decreased energy level and is sleeping well. The patient's appetite is normal. Nutrition: norm End: 10-Dec-2015 15:34 al/adequate. Exercises 0 days per week. Sleeps on average 6 hours per night. Normal bowel and bladder habits. Safety measures include appropriate use of safety belts and home smoke detectors. Current emotional problems include anxiety. Encounter Diagnosis: Annual physical exam, Body mass index 28.0-28.9, adult, Smoker, Abnormal glucose tolerance test (Renamed from Abnormal glucose tolerance test (GTT)), Need for prophylactic vaccination and inoculation against influenza [facility] Office Visit On: 04-Dec-2015 12:56 Encounter Reason: Earache - The onset of the earache has been sudden and has been occurring in a persistent pattern for 1 week. The course has been constant. The earache is described as a moderate pressure sensation. It End: 04-Dec-2015 17:04 affects both ears. The pain affects the internal ear.Encounter Diagnosis: Otitis, right, Otalgia, bilateral, Disorder of both eustachian tubes, Pale [facility] Office Visit On: 23-Nov-2015 9:06 Encounter Reason: Earache - The onset of the earache has been gradual and has been occurring for 1 week. The course has been increasing. The earache is described as a moderate pressure sensation and sharp pain. It affect End: 23-Nov-2015 9:40 s both ears (right ear worse). The pain affects the internal ear.Encounter Diagnosis: Otitis, right, Hearing loss, unspecified laterality [facility] Office Visit On: 05-Jun-2015 8:15 Encounter Reason: Follow up for chronic medical issues - The patient feels well with minor complaints, has good energy level and is sleeping well. Patient has been compliant with instructions. Current medication use: no End: 05-Jun-2015 16:33 side effects and compliant with dosing regimen. Patient sleeps 5 hours per night. Nutrition: inappropriate diet. The medical issues the patient is following up for include All identified problems below, asthma, COPD, gastric reflux, high blood pressure and high cholesterol. weight :.Encounter Diagnosis: GERD (gastroesophageal reflux disease), Hyperlipidemia, Anxiety (300.00), Chronic obstructive asthma with acute exacerbation, Fatty liver, Post traumatic stress disorder (309.81), Smoker, Screening for prostate cancer [facility] Office Visit On: 25-Feb-2015 9:03 Encounter Reason: Follow up acute care visit - The patient does not feel well. Patient has been compliant with instructions. Current medication use: no side effects. Patient sleeps 6 hours per night. Impact of disease: i End: 25-Feb-2015 9:57 mpact on work/school-moderate. Nutrition: balanced diet.Encounter Diagnosis: BRONCHITIS, NOT SPECIFIED ACUTE OR CHRONIC (490.), Cough [facility] Office Visit On: 23-Feb-2015 8:06 Encounter Reason: Flu Like Symptoms - The last clinic visit was 4 day(s) ago. No changes in management were made at the last visit. Symptoms include fever, chills, body aches, nasal congestion, runny nose, postnasal drai End: 23-Feb-2015 8:36 nage and dry cough. Onset was sudden 4 day(s) ago. There is no known event that preceded symptom onset. The symptoms occur constantly. The patient describes this as moderate in severity and worsening. S ymptoms are not exacerbated by activity, lying down or cold air. Associated symptoms include plugged ear(s), fatigue, fever and chills. The patient is not currently being treated for this problem. By re port there is good compliance with treatment. Pertinent medical history does not include allergic rhinitis, chronic rhinitis, perennial rhinitis, vasomotor rhinitis, recurrent upper respiratory infectio ns, recurrent sinusitis, chronic sinusitis, sinus surgery, asthma, chronic obstructive pulmonary disease, recurrent bronchitis, recurrent pneumonia, mononucleosis or recurrent streptococcal throat infec tion. Previous presentation included nasal congestion, runny nose, postnasal drainage, dry cough, fever and chills.Encounter Diagnosis: Flu-like symptoms, Cough, Viral URI [facility] Office Visit On: 30-Jul-2014 10:02 Encounter Reason: Follow up tests - Date: (07/22/14 labs).Encounter Diagnosis: Hyperlipidemia (272.4), Fatty Liver (571.8) End: 30-Jul-2014 11:26 [facility] Phone Encounter On: 22-Jul-2014 10:11 Encounter Diagnosis: Hyperlipidemia (272.4) End: 22-Jul-2014 10:12 [facility] Office Visit On: 30-May-2014 8:34 Encounter Reason: Follow up for chronic medical issues - The patient feels well with minor complaints, has decreased energy level and is sleeping poorly. Patient has been compliant with instructions. Current medication u End: 30-May-2014 13:16 se: no side effects and compliant with dosing regimen. Patient sleeps 4 hours per night. Nutrition: inappropriate diet and supplemental vitamins. The medical issues the patient is following up for inclu de All identified problems below, asthma, depression (anxiety), high blood pressure and other. weight :.Encounter Diagnosis: Anxiety (300.00), Gerd (530.81), Asthma,Intrinsic (493.11), Hyperlipidemia (272.4), Fatty Liver (571.8) [facility] Office Visit On: 03-Mar-2014 8:08 Encounter Reason: Cold Symptoms - Symptoms include runny nose, dry cough and headache (resolved ). Onset was sudden 6 day(s) ago. The symptoms occur constantly. The patient describes this as moderate in severity and impr End: 03-Mar-2014 8:34 oving. Associated symptoms include plugged ear(s) and fatigue.Encounter Diagnosis: Cold virus, Cough, Laryngitis [facility] Office Visit On: 14-Aug-2013 8:46 Encounter Reason: Follow up acute care visit - The patient feeling better since last seen and improving. Patient has been compliant with instructions. Current medication use: no side effects, compliant with dosing regime End: 14-Aug-2013 9:08 n and considered effective by patient. The medical issues the patient is following up for include All identified problems below and other (ilius, muscle spasm, flank pain ).Encounter Diagnosis: Flank pain, Muscle spasm of back, Ileus [facility] Office Visit On: 31-Jul-2013 10:13 Encounter Reason: Follow up acute care visit - The patient feeling better since last seen and improving. Patient has been compliant with instructions. Current medication use: no side effects, compliant with dosing regime End: 31-Jul-2013 10:51 n and considered effective by patient. The medical issues the patient is following up for include All identified problems below and other (sciatica, shoulder pain ).Encounter Diagnosis: Muscle spasm of back, Flank pain, Ileus [facility] Office Visit On: 29-Jul-2013 8:11 Encounter Reason: Abdominal pain - The onset of the pain has been sudden and has been occurring in a persistent pattern for 5 days. The course has been constant. The pain is described as a severe (at 11:30 last night and End: 29-Jul-2013 9:01 he went and threw up and he is really sore in the rt upper quad.) sharp pain. The pain is described as being located in the right upper quadrant (and back). The pain radiates to the back. The symptoms have no relieving factors. There has been no associated abdominal distention, bloating, constipation or diarrhea., [ADDITIONAL REASON] Sciatica - This condition is related to repetitive activity. Note for Sciatica : Rt shoulder pain and rt buttock pain Physical therapy session on Monday then stiff Mon and Monday Encounter Diagnosis: Flank pain, SCIATICA (724.4), PAIN IN JOINT INVOLVING SHOULDER REGION (719.41), Muscle spasm of back [facility] Phone Encounter On: 26-Jul-2013 7:10 Encounter Diagnosis: Hematuria End: 26-Jul-2013 7:12 [facility] Office Visit On: 25-Jul-2013 8:26 Encounter Reason: Abdominal pain - The onset of the pain has been sudden and has been occurring in a persistent pattern for hours. The course has been constant. The pain is described as a severe (at 11:30 last night and End: 25-Jul-2013 10:16 he went and threw up and he is really sore in the rt upper quad.) sharp pain. The pain is described as being located in the right upper quadrant. The pain radiates to the back. The symptoms have no reli eving factors. There has been no associated abdominal distention, bloating, constipation or diarrhea.Encounter Diagnosis: Muscle spasm (728.85), Abdominal Pain,RLQ (789.03), Flank pain [facility] Office Visit On: 18-Jun-2013 10:34 Encounter Reason: Follow up for chronic medical issues - The patient feels well with minor complaints (cold sx, pain in the middle of stomach), has decreased energy level and is sleeping well. Patient has been compliant End: 18-Jun-2013 11:33 with instructions. Current medication use: no side effects and compliant with dosing regimen. Patient sleeps 6 hours per night. Nutrition: inappropriate diet and supplemental vitamins. The medical issue s the patient is following up for include All identified problems below, asthma, depression, high blood pressure and high cholesterol.Encounter Diagnosis: Hyperlipidemia (272.4), Depression/Anxiety (300.4), Gerd (530.81), Asthma,Intrinsic (493.11), Cough, Sinusitis,acute (461.9), Abdominal Pain,RLQ (789.03) [facility] Office Visit On: 08-Feb-2013 10:30 Encounter Reason: Flu Like Symptoms - Onset was 3 day(s) ago.Encounter Diagnosis: Viral Infection, Unspecified (079.99) End: 08-Feb-2013 11:00 [facility] Office Visit On: 20-Sep-2012 12:19 Encounter Reason: Follow up for chronic medical issues - The patient feels well with minor complaints, has good energy level and is sleeping well. Patient has been compliant with instructions. Current medication use: no End: 20-Sep-2012 14:53 side effects and compliant with dosing regimen. Patient sleeps 7 hours per night. Nutrition: inappropriate diet and supplemental vitamins. The medical issues the patient is following up for include All identified problems below, asthma, depression, high blood pressure and high cholesterol.Encounter Diagnosis: Anxiety (300.00), Gerd (530.81), Hyperlipidemia (272.4), Asthma,Intrinsic (493.11), Fatty Liver (571.8), SCREENING FOR CANCER OF THE PROSTATE (V76.44) [facility] Office Visit On: 17-Apr-2012 8:41 Encounter Reason: Follow up ER - Reason for hospitalization note: (bad asthma attack yesterday and went to [facility]). Patient has been compliant with instructions. Current medication use: no side effects and compliant with do End: 17-Apr-2012 10:13 sing regimen. The patient does not feel well, has decreased energy level and is sleeping poorly. Note for Follow up ER: no recent cough or fever - has had sinus drainage. 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 Current medication use: no side effects.Encounter Diagnosis: Depression/Anxiety (300.4), End: 28-Feb-2012 11:22 Post traumatic stress disorder (309.81) [facility] Office Visit On: 08-Dec-2011 10:06 Encounter Reason: Follow up for chronic medical issues - The patient feels well with minor complaints, has good energy level and is sleeping well. Patient has been compliant with instructions. Current medication use: no End: 08-Dec-2011 11:14 side effects and compliant with dosing regimen. Patient sleeps 6 hours per night. Nutrition: balanced diet and supplemental vitamins. The medical issues the patient is following up for include All ident ified problems below, asthma, depression, gastric reflux, high blood pressure and high cholesterol. blood pressure range : and weight :.Encounter Diagnosis: Depression/Anxiety (300.4), Fatty Liver (571.8), Gerd (530.81), Asthma,Intrinsic (493.11), Hyperlipidemia (272.4), Tinnitus, Unspecified (388.30), Headache (784.0), Elevated LFT (790.6), Need for prophylactic vaccination and inoculation against influenza (V04.81) [facility] Office Visit On: 08-Aug-2011 10:46 Encounter Reason: Follow up for chronic medical issues - The patient feels well with minor complaints, has good energy level and is sleeping well. Patient has been compliant with instructions. Current medication use: no End: 08-Aug-2011 12:22 side effects and compliant with dosing regimen. Patient sleeps 7 hours per night. Nutrition: balanced diet and supplemental vitamins. The medical issues the patient is following up for include All ident ified problems below, asthma, depression, gastric reflux and osteoarthritis. blood pressure range : and weight :.Encounter Diagnosis: Asthma,Intrinsic (493.11), Depression/Anxiety (300.4), Gerd (530.81), Fatty Liver (571.8) [facility] Office Visit On: 14-Jan-2011 10:32 Encounter Reason: ADHD Medication Check - Adult - The last clinic visit was 1 month(s) ago. Symptoms do not include short attention span, impulsive behavior, hyperactive behavior, easy distractibility, poor listening, fo End: 14-Jan-2011 10:49 rgetfulness, careless mistakes, losing things, avoiding mental effort tasks, difficulty remaining seated, fidgeting, excessive talking, interrupting others or conflict in relationships. The symptoms are described as mild (with medication). Encounter Diagnosis: Need for prophylactic vaccination and inoculation against influenza (V04.81), ADD - Adult/Child (314.00) [facility] Phone Encounter On: 17-Dec-2010 15:43 Encounter Diagnosis: ADD - Adult/Child (314.00) End: 17-Dec-2010 15:45 [facility] Office Visit On: 14-Dec-2010 10:43 Encounter Reason: Follow up Meds - The patient feels well with minor complaints, has decreased energy level and is sleeping well. Patient has been compliant with instructions. Current medication use: no side effects and End: 14-Dec-2010 10:59 compliant with dosing regimen. Patient sleeps 7 hours per night. Nutrition: balanced diet and supplemental vitamins.Encounter Diagnosis: Anxiety (300.00), Depression/Anxiety (300.4) [facility] Office Visit On: 26-Nov-2010 11:31 Encounter Diagnosis: Depression/Anxiety (300.4) End: 26-Nov-2010 12:32 [facility] Annotation/Addendum On: 11-Nov-2010 11:33 Encounter Diagnosis: Unspecified Diagnosis End: 11-Nov-2010 11:34 [facility] Office Visit On: 11-Nov-2010 10:23 Encounter Reason: Follow up Meds - The patient feels well with no complaints, has decreased energy level and is sleeping poorly. Patient has been compliant with instructions. Current medication use: no side effects and c End: 11-Nov-2010 11:19 ompliant with dosing regimen. Patient sleeps 6 (wakes up in the middleof sleep cycle) hours per night.Encounter Diagnosis: Depression/Anxiety (300.4) [facility] Office Visit On: 18-Aug-2010 10:30 Encounter Reason: Follow up for chronic medical issues - The patient feels well with minor complaints, has good energy level and is sleeping well. Patient has been compliant with instructions. Current medication use: no End: 19-Aug-2010 7:52 side effects and compliant with dosing regimen. Patient sleeps 6 hours per night. Nutrition: balanced diet and supplemental vitamins. The medical issues the patient is following up for include All ident ified problems below, depression and high cholesterol. blood pressure range : and weight :.Encounter Diagnosis: Hyperlipidemia (272.4), Gerd (530.81), Fatty Liver (571.8), Elevated LFT (790.6), Allergic Rhinitis(477.9), Asthma,Intrinsic (493.11) [facility] Office Visit On: 22-Jul-2010 9:15 Encounter Reason: Physical male exam - Last seen less than 1 month ago. General health: feels well with minor complaints, has good energy level and is sleeping well. The patient's appetite is normal. Nutrition: normal/ad End: 22-Jul-2010 9:41 equate. Exercises 0 days per week. Sleeps on average 5 hours per night. Normal bowel and bladder habits. Safety measures include appropriate use of safety belts. There are no current emotional problems.Encounter Diagnosis: Work Physical (V70.3) [facility] Office Visit On: 16-Jul-2010 8:30 Encounter Reason: Follow up for chronic medical issues - The patient feels well with minor complaints, has decreased energy level and is sleeping poorly. Patient has been compliant with instructions. Current medication u End: 16-Jul-2010 10:16 se: no side effects and compliant with dosing regimen. Patient sleeps 6 hours per night. Nutrition: balanced diet and supplemental vitamins. The medical issues the patient is following up for include Al l identified problems below, high blood pressure and high cholesterol.Encounter Diagnosis: Depression/Anxiety (300.4), Gerd (530.81), Hyperlipidemia (272.4), Fatty Liver (571.8), Tobacco abuse (305.1), Muscle spasm (728.85) [facility] Office Visit On: 13-Jan-2010 10:31 Encounter Reason: Follow up for chronic medical issues - The patient feels well with minor complaints ,has good energy level and is sleeping poorly. Patient has been compliant with instructions. Current medication use: n End: 13-Jan-2010 11:35 o side effects and compliant with dosing regimen. Patient sleeps 5 hours per night. Nutrition: inappropriate diet and supplemental vitamins. The medical issues the patient is following up for include Al l identified problems below ,depression and high blood pressure. weight :. Encounter Diagnosis: Hyperlipidemia (272.4), Fatty Liver (571.8), Elevated LFT (790.6), Anxiety (300.00) [facility] Office Visit On: 25-Nov-2009 8:03 Encounter Reason: Sinusitis/ - The duration of the symptoms are 4 days The course has been worsening. The sinusitis/ has no relieving factors. Associated features include The symptoms have been associated with cough (korey End: 25-Nov-2009 8:28 ar/green) ,ear pain ,nasal discharge/stuffy nose (yellow/green/red) ,sinus pain (facial) and sore throat, while the symptoms have not been associated with swollen lymph glands or teeth pain. No previous evaluations were reported. none reported. Encounter Diagnosis: Sinusitis,acute (461.9), Wheezing (786.07) [facility] Office Visit On: 15-Oct-2009 10:45 Encounter Reason: Follow up hospital - Reason for ER visit: note: (chest pain/pressure). The patient feels well with minor complaints (still has some chest pressure- pt thinks may have been asthma although he has never b End: 15-Oct-2009 16:23 een diagnosed. He says that his breathing seems to be worse in the heat/humidity.) and gradually improving. Patient has been compliant with instructions. Current medication use: no side effects ,complia nt with dosing regimen and considered effective by patient. Patient sleeps 7 hours per night. Nutrition: balanced diet. The hospital results of the stress test (normal) were Encounter Diagnosis: Shortness of breath (786.09), Chest pain (786.59) [facility] Office Visit On: 10-Sep-2009 8:16 Encounter Reason: Follow up for chronic medical issues - The patient feels well with minor complaints (sinus pressure). Patient has been compliant with instructions. Current medication use: no side effects ,compliant wit End: 10-Sep-2009 8:52 h dosing regimen and considered effective by patient. Patient sleeps 6 hours per night. Nutrition: balanced diet and supplemental vitamins. The medical issues the patient is following up for include All identified problems below ,depression ,gastric reflux ,high cholesterol and other (elevated LFT's). Encounter Diagnosis: Hyperlipidemia (272.4), Allergic Rhinitis(477.9), Fatty Liver (571.8), Depression/Anxiety (300.4), Gerd (530.81), Tennis elbow (726.32) [facility] Annotation/Addendum On: 18-Jun-2009 15:31 [facility] End: 18-Jun-2009 15:33 Office Visit On: 17-Jun-2009 10:22 Encounter Diagnosis: Fatty Liver (571.8), Elevated LFT (790.6) End: 17-Jun-2009 11:01 [facility] Office Visit On: 27-May-2009 10:30 Encounter Reason: Follow up, Diagnostic Procedure Results - Diagnostic tests include ultrasound (2--10). Encounter Diagnosis: Elevated LFT (790.6), ARTHRALGIAS 719.40, Fatty Liver (571.8), Depression/Anxiety (300.4) End: 27-May-2009 11:39 [facility] Office Visit On: 11-May-2009 10:11 Encounter Reason: Follow up, Diagnostic Procedure Results - Diagnostic tests include ECHO (05/07/09). , [ADDITIONAL REASON] Follow up, Laboratory Test Results - Date: (04/22/09). Encounter Diagnosis: Tinnitus, Unspecified (388.30), End: 11-May-2009 10:44 Hearing loss, unspecified (389.9), Elevated LFT (790.6), Hyperlipidemia (272.4), Abnormal EKG(794.31) [facility] Office Visit On: 30-Apr-2009 10:54 Encounter Reason: Physical male exam - Last seen less than 1 month ago. General health: feels well with minor complaints ,has good energy level and is sleeping well. The patient's appetite is normal. Nutrition: inappropr End: 30-Apr-2009 11:20 iate diet. Exercises 0 days per week. Sleeps on average 7 hours per night. Normal bowel and bladder habits. Safety measures include appropriate use of safety belts and home smoke detectors. Current emotional problems include depression. Encounter Diagnosis: Work Physical (V70.3) [facility] Office Visit On: 22-Apr-2009 11:22 Encounter Reason: Follow up for chronic medical issues - The patient feels well with minor complaints ,has decreased energy level and is sleeping well. Patient has been compliant with instructions. Current medication use End: 22-Apr-2009 12:05 : no side effects and compliant with dosing regimen. Patient sleeps 7 hours per night. Nutrition: balanced diet and supplemental vitamins. The medical issues the patient is following up for include All identified problems below ,high blood pressure and high cholesterol. Encounter Diagnosis: Elevated Blood Pressure without diagnosis of Hypertension (796.2), Hyperlipidemia (272.4), ARTHRALGIAS 719.40, Abnormal EKG(794.31), Gerd (530.81), Depression/Anxiety (300.4), SCREENING FOR CANCER OF THE PROSTATE (V76.44) [facility] Office Visit On: 09-Mar-2009 10:00 Encounter Reason: Follow up acute care visit - The patient feeling better since last seen. Patient has been compliant with instructions. Current medication use: no side effects. Patient sleeps 7 hours per night. Impact o End: 09-Mar-2009 10:17 f disease: emotional impact-mild. Nutrition: balanced diet. Encounter Diagnosis: Depression/Anxiety (300.4) [facility] Office Visit On: 19-Feb-2009 11:07 Encounter Reason: Depression - The onset of the depression has been gradual and has been occurring in a persistent pattern for 2 months. The course has been increasing. The depression is described as feeling blue ,sad ,n End: 19-Feb-2009 15:01 ervous and tired. The symptoms have been associated with depression in the past, while the symptoms have not been associated with change in job or of a loved one. Encounter Diagnosis: Depression/Anxiety (300.4) [facility] Office Visit On: 05-Jun-2008 10:26 Encounter Diagnosis: Work Physical (V70.3), Hyperlipidemia (272.4), Elevated Blood Pressure without diagnosis of Hypertension (796.2), Gerd (530.81), Elevated LFT (790.6) End: 05-Jun-2008 11:15 [facility] Office Visit On: 04-Jun-2008 11:45 Encounter Reason: Elbow Pain - The onset of the elbow pain has been sudden and has been occurring in a persistent pattern for months. The course has been gradually worsening. The elbow pain is moderate to severe. The elb End: 04-Jun-2008 12:18 ow pain is characterized as a sharp stabbing. The elbow pain is described as being located down the entire arm ,over the lateral elbow and over the medial elbow. Aggravating factors include physical act ivity. There were no relieving factors. There has been no associated grinding ,catching or locking. The elbow pain was preceeded by trauma. There were no previous diagnostic tests. There were no previou s evaluations. There was no previous physical therapy performed. There have been no previous surgeries. Encounter Diagnosis: TENNIS ELBOW (726.32) [facility] Office Visit On: 22-Apr-2008 10:33 Encounter Reason: Follow up for chronic medical issues - The patient feels well with minor complaints ,has good energy level and is sleeping poorly. Patient has been compliant with instructions. Current medication use: n End: 22-Apr-2008 11:14 o side effects and compliant with dosing regimen. Patient sleeps 7 hours per night. Nutrition: balanced diet and supplemental vitamins. The medical issues the patient is following up for include All avelino ntified problems below ,depression ,gastric reflux and high cholesterol. blood pressure range : and weight :. Encounter Diagnosis: Hyperlipidemia (272.4), Gerd (530.81), Allergic Rhinitis(477.9), Tinea Cruris (110.3), Depression/Anxiety (300.4), Tobacco abuse (305.1) [facility] Office Visit On: 01-Nov-2007 9:57 Encounter Reason: Sinusitis/ - The duration of the symptoms are 4 days The course has been worsening. The sinusitis/ has no relieving factors. Associated features include The symptoms have been associated with ear pain ( End: 01-Nov-2007 10:59 right ear and down into neck) and sinus pain, while the symptoms have not been associated with nasal discharge/stuffy nose or red eyes. No previous evaluations were reported. allergies. Encounter Diagnosis: Sinusitis,acute (461.9), Otalgia, unspecified (388.70) [facility] Office Visit On: 13-Jun-2007 8:37 Encounter Diagnosis: Elevated Blood Pressure without diagnosis of Hypertension (796.2) End: 13-Jun-2007 8:59 [facility] Office Visit On: 04-May-2007 8:51 Encounter Reason: Cough - The onset of the cough has been sudden (5 days). The cough is characterized as dry. The amount of sputum produced is scanty. The cough occurs all the time. The symptoms are not aggravated by sup End: 04-May-2007 9:55 ine posture ,meals or particular position. The symptoms have been associated with fever (for 2 days) ,hoarseness ,runny nose and sore throat, while the symptoms have not been associated with headache or wheezing. Encounter Diagnosis: ACUTE PHARYNGITIS (462.) [facility] Historical Summary On: 25-Apr-2007 8:41 [facility] End: 25-Apr-2007 8:42 Office Visit On: 19-Apr-2007 8:24 Encounter Reason: Physical male exam - Last seen between 1-3 months ago. General health: feels well with minor complaints ,has good energy level and is sleeping well. The patient's appetite is normal. Nutrition: suppleme End: 19-Apr-2007 9:17 ntal vitamins & iron. Exercises 0 days per week. Sleeps on average 7 hours per night. Normal bowel and bladder habits. Safety measures include appropriate use of safety belts and home smoke detectors. Current emotional problems include depression. Encounter Diagnosis: Work Physical (V70.3) [facility] Office Visit On: 13-Apr-2007 7:59 Encounter Reason: Follow up for chronic medical issues - The patient feels well with minor complaints ,has good energy level and is sleeping well. Patient has been compliant with instructions. Current medication use: no End: 13-Apr-2007 8:47 side effects and compliant with dosing regimen. Patient sleeps 7 hours per night. Nutrition: balanced diet and supplemental vitamins. The medical issues the patient is following up for include All ident ified problems below ,high blood pressure and high cholesterol. Encounter Diagnosis: Hyperlipidemia (272.4), Gerd (530.81), Elevated Blood Pressure without diagnosis of Hypertension (796.2), Allergic Rhinitis(477.9), Depression/Anxiety (300.4), Tinea Cruris (110.3), Carpel tunnel syndrome (354.0), Hand Pain (719.44), Parasthesia (782.0), FLATULENCE [facility] Office Visit On: 29-Sep-2006 12:02 Encounter Reason: Rash - The onset of the rash has been acute and has been occurring in a persistent pattern for weeks. The course has been constant. The rash is characterized as red. The rash was first seen on the groin End: 29-Sep-2006 12:22 . There has been no progression. There has been associated itching. Encounter Diagnosis: Tinea Cruris (110.3) [facility] Office Visit On: 06-Jun-2006 10:11 Encounter Reason: Rash - The onset of the rash has been gradual and has been occurring in a persistent pattern for 2 months. The course has been constant. The rash is characterized as red. The rash was first seen on the End: 06-Jun-2006 10:40 groin. There has been no progression. There has been associated itching (AND IRRITATING), while there has been no chills or fever. , [ADDITIONAL REASON] Follow up, Laboratory Test Results - Date: (05-31-06). Current symptoms/reason fo r visit include/s Follow up visit with no current symptoms. There is a family history of cardiovascular disease (father) , while there is no family history of breast cancer ,cystic fibrosis ,Down's synd kee ,mental retardation or myocardial infarction before age 55. Past medical history includes elevated cholesterol ,elevated triglycerides ,emotional problems and gastroesophageal reflux disease. Encounter Diagnosis: Hyperlipidemia (272.4), Elevated LFT (790.6), Tinea Cruris (110.3) [facility] Office Visit On: 17-May-2006 9:56 Encounter Reason: new patient male physicial - Last seen between 1-3 months ago (last month went in for anual physical). General health: feels well with no complaints and is sleeping well (works third shift). The patient End: 17-May-2006 10:25 's appetite is normal. Nutrition: normal/adequate. Current emotional problems include depression (takes effexor for depression started with smoke cesation). Encounter Diagnosis: Hyperlipidemia (272.4), Gerd (530.81), Depression/Anxiety (300.4), Allergic Rhinitis(477.9) [facility] Payers Vibha Vargas; a guarantor
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
== END ==
PROVIDERS: Family Provider Internal Medicine; PCP Internal Medicine; Referring Provider Nurse Practitioner; Visit Provider Nurse Practitioner
DX: M77.12 Lateral epicondylitis, left elbow (principal)
CPT/HCPCS: 73080

== ENCOUNTER → 2018-09-21 | Outpatient (CLI) | payer OTHER, SELFPAY ==
[2018-04-05 16:44] VITALS: BMI 31.1
--- NOTE | 2018-09-21 09:59 | RAD_ITS ---
HISTORY:swelling, bruising, and pain, NKI swelling, bruising, and pain, NKI COMPARISON: None FINDINGS: # of images incl. paperwork: 4 XR Shoulder Min 2 Views: Right BONE AND JOINTS: No acute fracture or subluxation. Acromio clavicular arthropathy SOFT TISSUES: Unremarkable. No radiopaque foreign body. RAD/Shoulder min 2 Views IMPRESSION: No acute pathology Acromioclavicular arthropathy at 2059 Reported and signed by: Natasha Tam DO Electronically Signed: Natasha Tam DO at 20:58 EDT Tel , Service support ,
== END | disposition home or self-care (01) ==
LOC: HPRAD 09:57
PROVIDERS: Family Provider Internal Medicine; PCP Internal Medicine; Referring Provider Nurse Practitioner; Visit Provider Nurse Practitioner
DX: M25.511 Pain in right shoulder (principal)
CPT/HCPCS: 73030

== ENCOUNTER 2018-09-24 10:33 | Outpatient (RCR) | payer OTHER, SELFPAY ==
[2018-04-05 16:44] VITALS: BMI 31.1
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
--- NOTE | 2018-12-11 14:34 | HP.PT.NRP ---
HP - Discharge Summary (1) - Patient Information PRADEEP VARGAS was seen in my office for initial evaluation on 09/24/18. The following Plan of Care was established for this patient: Initial Frequency: 2-3x /Week Initial Duration: 4-6 Weeks - Anticipated Interventions Patient/Client Instruction: Educate patient on: Condition, Plan of Care, Risk Factors, Benefits of Fitness Program For the Purpose of:: To improve self management Therapeutic Exercise to Include: Strength training, Body mechanics, Postural training, Flexibilty training, Passive ROM, Active ROM, Scapular Strength/Stabilization For the Purpose of:: To decrease pain, To increase ROM, To improve muscle performance and motor function, To increase tolerance to activity/condition/position, To improve ability of physical actions for home/community/work/leisure Manual Therapy Techniques to Include: Mobilization, Passive ROM Comment: RIGHT SHOULDER For the Purpose of:: To increase ROM TENS: Yes IF ES: Yes Cryotherapy (ice pack, ice massage): Yes Thermo therapy (hot pack): Yes Ultrasound (thermal/non thermal): Yes For the Purpose of:: To decrease pain, To decrease swelling/inflammation, To increase ROM, To improve nutrient delivery to tissue This patient was last seen in our office 09/24/18. Pertinent comments regarding their Physical therapy will appear below: This patient has not returned to Physical Therapy and is appropriate to return to MD for further follow-up as needed. At this point I will be discontinuing this patient from physical therapy. I would be happy to see this patient again in the future if found appropriate by the physician. Thank you! Nelly Villarreal, PT, Cert MDT
== END 2018-09-24 19:00 | disposition home or self-care (01) ==
LOC: PT 10:33
PROVIDERS: Family Provider Internal Medicine; PCP Internal Medicine; Referring Provider Nurse Practitioner; Visit Provider Nurse Practitioner
DX: M25.511 Pain in right shoulder (principal); M75.21 Bicipital tendinitis, right shoulder; M47.892 Other spondylosis, cervical region; M62.838 Other muscle spasm
CPT/HCPCS: 97162

== ENCOUNTER → 2018-09-24 | Outpatient (CLI) | payer OTHER, SELFPAY ==
[2018-09-24 13:00] VITALS: BMI 31.1
--- NOTE | 2018-09-24 13:22 | RAD_ITS ---
HISTORY: neck and shoulder pain, no trauma COMPARISON: None FINDINGS: # of images incl. paperwork: 6 XR Spine Cervical 5 Views: All 77 vertebral bodies of the cervical spine are demonstrated. Mild degenerative narrowing to the C3, C4, C5, and C6 vertebral bodies. Mild wedging. Anterior enthesophytes at many levels, but greatest at the C5-C6 level. Degenerative disc disease is greatest at the C5-C6 level. This disc disease manifested by loss of disc height, endplate sclerosis, and an anterior enthesophyte. On the right at the C3-C4 level the neural foramen is narrowed. Is narrowed due to uncovertebral hypertrophy and facet arthropathy. On the left the same C3-C4 level demonstrates the greatest degree of stenosis. This is due to uncovertebral hypertrophy, enthesopathy on the inferior endplate of the C3 vertebral body, and facet arthropathy. The frontal image demonstrates the uncovertebral hypertrophy at C4-C5 and C6, left greater than right. Lung apices are clear. The odontoid is normal in its relationship to the lateral masses without fracture. A wire is present within the soft tissues under the left side of the mandible. This is unknown whether this is a foreign body or postsurgical. As demonstrated on the lateral image of the cervical spine, this soft tissue wire and measures 1.6 cm. RAD/Cerv Spine 4 or 5 Views IMPRESSION: Multilevel degenerative disc disease greatest at the C5-C6 level. Multilevel uncovertebral hypertrophy. Uncovertebral hypertrophy, degenerative disc disease, and facet arthropathy leads to neural foraminal stenosis bilaterally at the C3-C4 level. at 0022 Reported and signed by: Favian Allred MD Electronically Signed: Favian Allred MD at 0:21 EDT Tel , Service support ,
== END | disposition home or self-care (01) ==
LOC: HPRAD 13:22
PROVIDERS: Family Provider Internal Medicine; PCP Internal Medicine; Referring Provider Physician Assistant; Visit Provider Physician Assistant
DX: R20.0 Anesthesia of skin (principal); R20.2 Paresthesia of skin
CPT/HCPCS: 72050

== ENCOUNTER → 2019-04-23 09:03 | Outpatient (CLI) | payer OTHER, SELFPAY ==
[2018-09-24 13:00] VITALS: BMI 31.1
--- NOTE | 2019-04-23 09:07 | RAD_ITS ---
HISTORY: PAIN RIGHT LOWER ANTERIOR RIBS EXAMINATION/TECHNIQUE: XR Ribs Unilateral W/ PA Chest Min 3 Views: Right COMPARISON: Chest x-ray from March 04, 2018. 2 PA chests, and 3 views of the right ribs. FINDINGS: LINES/DEVICES: None. LUNGS: No consolidation, edema or effusion. No pneumothorax. MEDIASTINUM AND CARDIOVASCULAR STRUCTURES: Cardiac silhouette not enlarged. Central airways and mediastinal contour are unremarkable. RIBS AND OSSEOUS STRUCTURES: Unremarkable. No evidence of displaced rib fractures. RAD/Ribs Uni Min 3V w/PA Chest IMPRESSION: Negative chest and ribs series. at 2300 Reported and signed by: Favian Allred MD Electronically Signed: Favian Allred MD at 22:59 EST Tel , Service support ,
== END ==
PROVIDERS: Family Provider Internal Medicine; PCP Internal Medicine; Referring Provider Nurse Practitioner; Visit Provider Nurse Practitioner
DX: R07.81 Pleurodynia (principal)
CPT/HCPCS: 71101

== ENCOUNTER 2020-09-10 11:46 | Emergency (ER) | payer BC, SELFPAY ==
[2018-09-24 13:00] VITALS: BMI 31.1
[2020-09-10 11:47] VITALS: BP 138/80; PULSE 89; RESP 16; TEMP 35.6; O2SAT 98; BMI 31.1
--- NOTE | 2020-09-10 12:02 | EDS_ITS ---
HPI History of Present Illness Chief Complaint: Bite Onset/Context/Timing Current Severity: Mild Maximum Severity: Mild Narrative Narrative: The patient presents to the emergency department with nonhealing wound on his left lateral calf. He states that he thinks he was bit by something about 2 weeks ago. He states it was very itchy. Since then, the margins have gotten red and he had some scant drainage. He denies any fevers or chills. He states he was trying to use peroxide and which loren with little improvement. He is not a diabetic. He has no history of immunosuppression. He is otherwise been in his normal state of health. [facility] Medical History (Updated 09/10/20 @ 12:05 by Ruth Ann Bob) Anxiety COPD (chronic obstructive pulmonary disease) Depression GERD (gastroesophageal reflux disease) PTSD (post-traumatic stress disorder) Home Medications buspirone 15 mg PO DAILY 03/04/18 [History Last Taken 03/04/18] omeprazole 20 mg PO DAILY 03/04/18 [History Last Taken 03/04/18] venlafaxine 75 mg PO DAILY 03/04/18 [History Last Taken 03/04/18] meloxicam 15 mg tablet PO 30 Days #30 tab 09/24/18 [History Last Taken Unknown] metformin 500 mg tablet PO 90 Days #90 tab 09/24/18 [History Last Taken Unknown] prednisone 10 mg tablet PO 9 Days #18 tab 09/24/18 [History Last Taken Unknown] doxycycline monohydrate 100 mg PO BID #20 capsule 09/10/20 [Rx Last Taken Unknown] Allergy/AdvReac Type Severity Reaction Status Date / Time No Known Allergies Allergy Verified 09/10/20 11:49 Social History Smoking Status: Never smoker [facility] ED Constitutional Constitutional ED: Denies chills or fever(s) Eyes Eyes: Denies blurry vision or change in vision ENT ENT ED: Denies ear pain or sore throat Cardiovascular Cardiovascular: Denies chest pain or palpitations Respiratory/Chest Respiratory/Chest: Denies cough, dyspnea or dyspnea on exertion Gastrointestinal Gastrointestinal: Denies abdominal pain, nausea or vomiting Genitourinary Genitourinary ED: Denies dysuria or urinary frequency Musculoskeletal Musculoskeletal: Denies arthralgias or myalgias Integumentary Denies rash Neurologic Neurologic: Denies headache(s) or paresthesias Psychiatric Psychiatric: Denies anxiety or depression Endocrine Endocrinology: Denies polydipsia or polyuria Allergic/Immunologic Allergic/Immunologic ED: Denies urticaria EXAM Physical Exam Const Vital Signs: 09/10/20 11:47 Temperature 96.1 F L Temperature Source Temporal Pulse Rate 89 Respiratory Rate 16 Blood Pressure 138/80 H Blood Pressure Mean 99 Pulse Ox 98 Oxygen Delivery Method Room Air Positive well nourished and well developed General Appearance ED: well developed HEENT Reports normocephalic, head/scalp atraumatic and moist mucous membranes Eyes PERRL and EOMs intact bilaterally Neck no lymphadenopathy and supple General: Negative for tenderness Chest Wall inspection of chest normal Resp normal respiratory effort and clear to auscultation bilaterally Cardio regular rate, regular rhythm and no murmurs GI normal to inspection, nondistended, normoactive bowel sounds Palpation: Negative for tender, guarding or rebound tenderness present Back/Spine no CVA tenderness Cervical Spine: Negative for cervical spine tenderness Thoracic Spine / Upper Back: Negative for thoracic spinal tenderness Extremity normal to inspection Extremity Narrative: Patient has a 2 cm ovoid area of cellulitis in the lateral calf. There is no significant streaking. There is no central fluctuance. His pulses are normal. General Extremety ED: Negative for tenderness Neuro oriented x3 and CN's II-XII intact bilaterally Neuro Narrative: No focal deficits appreciated. Sensorium / Orientation: alert Psych mental status grossly normal Skin no rashes or lesions noted, no wounds and skin turgor normal MDM MDM MDM Narrative Medical decision making narrative: The patient has an area of cellulitis. It is not significantly streaking. There is some central necrosis without evidence of fluctuance or retained foreign body. Patient has no history of venous depression. I am going to treat him with doxycycline. He was counseled to stop using the peroxide. He will be discharged home. Impression 1. Left calf cellulitis Discharge Plan Triage Chief Complaint: Bite ED Provider: Juan Farris Dx/Rx/DC Orders Instructions: ED Cellulitis Prescriptions: New doxycycline monohydrate 100 MG capsule 100 mg PO BID Qty: 20 RF: 0 No Action metformin 500 mg tablet PO 90 Days Qty: 90 RF: 0 prednisone 10 mg tablet PO 9 Days Qty: 18 RF: 0 meloxicam 15 mg tablet PO 30 Days Qty: 30 RF: 0 venlafaxine 75 MG capsule 75 mg PO DAILY RF: 0 buspirone 15 MG tablet 15 mg PO DAILY RF: 0 omeprazole 20 MG capsule,delayed release(DR/EC) 20 mg PO DAILY RF: 0 Primary Care Provider: Brittani Jordan Referrals: Brittani Jordan DO [Primary Care Provider] -
== END 2020-09-10 12:26 | disposition home or self-care (01) ==
LOC: ED 12:13
PROVIDERS: Emergency Provider Emergency Medicine; PCP Internal Medicine
DX: L03.116 Cellulitis of left lower limb (principal); F41.9 Anxiety disorder, unspecified; J44.9 Chronic obstructive pulmonary disease, unspecified; F32.9 Major depressive disorder, single episode, unspecified; K21.9 Gastro-esophageal reflux disease without esophagitis; Z79.52 Long term (current) use of systemic steroids; Z79.899 Other long term (current) drug therapy
CPT/HCPCS: 99282

== ENCOUNTER → 2023-09-18 | Outpatient (CLI) | payer BC, SELFPAY | END | disposition home or self-care (01) | LOC: LABSPEC 15:46 | PROVIDERS: PCP Internal Medicine; Referring Provider Otolaryngology; Visit Provider Otolaryngology | DX: J32.9 Chronic sinusitis, unspecified (principal) | CPT/HCPCS: 87070; 87077; 87186; 87205 ==

== ENCOUNTER → 2023-09-25 | Outpatient (CLI) | payer BC, SELFPAY ==
--- NOTE | 2023-09-25 | ASPOS_PTH ---
PATIENT: PRADEEP VARGAS LOC: [facility] U#:[id number] AGE/SX: 58/M ROOM: RE09/25/[address]: Dr. Biju Gomez MD : 1965 BED: DIS: 09/25/2023 SPEC #: [id number] RECD: 09/25/23 10:00 STATUS: HENNY LUCIAN #: [id number] GARO: 09/25/23 00:[address]: Biju Gomez DEPT: CYTOLOGY RECD BY: Luly Willams ENTERED: 09/25/23 11:18 SP TYPE: ASP HERE OTHR DR: Dr. Brittani Jordan, DO Tissues: Neck, NOS Procedures: Surgery Specimen Level IV Cytology Other Fine Needle Asp on Site HEADER OPERATION: Fine needle aspiration right neck mass PRE-OP DIAGNOSIS: Right neck mass TISSUE SUBMITTED: Smears and fluid for cytology DIAGNOSIS CYTOLOGY Fine needle aspiration, right neck mass (smears and cellblock): Mature adipose tissue consistent with lipoma. / 09/26/2023 CYTOLOGY STUDY Slides are reviewed. CYTOLOGY GROSS Received is 0.2 ml of faust-yellow material labeled with the patient's name, and designated Right neck mass. 6 imprints and 2 paps are made from the submitted fluid and the rest is added to CytoLyt for cell block preparation. Submitted for cytology study. / 09/25/2023 TC:5 CPT: 37578,94371,30827,66151
[2023-09-25 08:41] LABS: Mucous, Urine 0 SEEN /hpf (<or=2+); Squamous Epithelial Cells - UA 0 SEEN /hpf (0-5); White Blood Cells 0 SEEN /hpf (0-5)
[2023-09-25 09:10] LABS: Color, Urine Yellow (Yellow); Glucose, Dipstick Normal (Normal); Ketone-Dipstick Negative (Negative); Leukocyte Esterase-Dipstick Negative /ul (Negative); Nitrite-Dipstick Negative (Negative); Occult Blood-Urine 10 /ul (Negative); Protein-Dipstick Negative (Negative); Urine Bilirubin Dipstick Negative (Negative); Urine Clarity Clear (Clear); Urine Urobilinogen Normal (Normal)
[2023-09-25 09:11] LABS: Absolute Lymphocyte Count 2.98 X10^3/uL (0.83-4.51); Absolute Neutrophil Count 5.7 X10^3/uL (2.0-7.7); Basophil# 0.05 X10^3/uL; Basophil% 0.5 % (0-1); Eosinophil# 0.32 X10^3/uL; Eosinophils% 3.2 % (0-5); Hematocrit 44.1 % (40-54); Lymphocyte # 2.98 X10^3/ul (0.83-4.51); Lymphocyte % 30.1 % (19-41); Mean Corpuscular Hgb 31.8 pg (27.0-32.0); Mean Corpuscular Volume 93.6 fL (80-94); Monocyte# 0.83 X10^3/uL; Monocyte% 8.4 % (0-10); NRBC Flagged by Analyzer 0 % (0-5); Neutrophil % 57.6 % (47-70); Platelet Count 312 K/mm3 (150-450); RBC Distribution Width SD 41.6 fl (35.1-43.9); Red Blood Count 4.71 M/mm3 (4.6-6.2); White Blood Count 9.9 K/mm3 (4.4-11.0)
[2023-09-25 09:21] LABS: Bacteria 1+ /hpf (None Seen); Red Blood Cells-Urine 0-5 SEEN /hpf (0-5)
[2023-09-25 09:22] LABS: Yeast-Urine RARE /hpf (None Seen)
[2023-09-25 09:35] LABS: Vitamin D,25 Hydroxy 50.8 ng/mL
[2023-09-25 09:42] LABS: Microalbumin,Random Urine 6.1 mg/L (NO RANGE EST.); Microalbumin:Creatinine Ratio 4.2 mg/g CRE (<30 mg/g CRE)
[2023-09-25 09:52] LABS: CRP < 2.90 mg/L (0.0-3.0); Cholesterol 164 mg/dL (200); High Density Lipoprotein 39 mg/dL; Thyroid Stim Hormone (TSH) 2.77 uIU/mL (0.358-3.74); Triglycerides 295 mg/dL; Very Low Density Lipoprotein 59 mg/dL (5-40)
[2023-09-25 10:34] LABS: Erythrocyte Sedimentation Rate 5 mm/hr (0-20)
== END | disposition home or self-care (01) ==
PROVIDERS: PCP Internal Medicine; Referring Provider Otolaryngology; Visit Provider Otolaryngology
DX: E55.9 Vitamin D deficiency, unspecified (principal); E03.9 Hypothyroidism, unspecified; E78.5 Hyperlipidemia, unspecified; R22.1 Localized swelling, mass and lump, neck; R73.09 Other abnormal glucose
CPT/HCPCS: 10021; 36415; 80061; 81001; 82043; 82306; 82570; 84443; 85025; 85652; 86140; 88161; 88305

== ENCOUNTER 2023-12-06 16:30 | Outpatient (RCR) | payer BC, SELFPAY ==
--- NOTE | 2023-11-22 18:23 | HP.PTEVAL ---
Patient's Visit Information Visit Information Visit Information: PRADEEP VARGAS is a 58 year old M referred to Physical Therapy by Dr. Brittani Jordan DO with a diagnosis of Cervical Radiculopathy. Date of Evaluation: 11/22/23 Physical Therapist: CAROLYNE Henry Visit Plan Frequency: 1x/Week Duration: 4 Weeks Plan: 1X/ week (very high co-pay) for neck retraction and extension exercises, some manual to the knot on the R sided levator/mid trap if painful and if pt tolerates it, postural exercise with HEP each visit due to high co-pay HEP: neck towel extension and using a tennis ball to work out the knot at mid trap/levator Subjective Subjective: Pt reports that about a month ago he was doing a lot of repetitive stuff and feels pain on R shoulder blade and feels like he has a marble that is bothering him. It hurts a lot when he sleeps a lot with his arm abducted at 90 degrees on his stomach and his neck is turned to the R side and causes the shoulder blade pain. He has persistent mild R shoulder blade pain all day. He had prednisone and can still feels the pain. The Dr touched a certain spot and he wanted to jump. He is R handed. He has N&T when he is sleeping or if he is doing a lot of repetitive with small nuts and bolts he may have some tingling. Pain Neck pain: Pain Intensity (Out of 10): 0 R shoulder blade pain: Pain Intensity (Out of 10): 3 Objective Objective: Posture: sits with good posture Pt is R handed: R 80# and L 80# palpation: very tender (knots felt) at R levator and R mid trap Bicep DTR: B 2+/3 C-spine AROM: flexion 100%, Ext 50%, R Rot 80% and L 75%, SB B 25% ( no pain but just stretching) UE AROM: AROM B shoulders WFL (tight at end range flexion) UE MMT: R Shoulder Flexion 10.7 and L 13.2 R shoulder ABD 13.2 and L 12.7 R shoulder ER 18.2 and L 19.4 pt had no pain with thoracic mobs Pt able to do X 10 chin tuck in supine without any pain Pt had no pain with lat stretching Sitting neck extension with a towel 3 X 10 )at the end of the third set his R arm started to tingle. We held the towel with just his L hand and he was able to do 2 X 10 more sets of neck towel extensions with no R handed N&T. Pt felt no pain and looser walking out of the clinic Balance/Special Test Scores Oswestry Neck Score: 6 Goals Goal 1:: I HEP Goal Time Frame: 4-6 Weeks Goal 2:: Improved neck ROM (at the time of the eval: C-spine AROM: flexion 100%, Ext 50%, R Rot 80% and L 75%, SB B 25% ( no pain but just stretching) Goal Time Frame: 4-6 Weeks Goal 3:: Abolish the R shoulder blade pain Goal Time Frame: 4-6 Weeks Rehabilitation Potential Rehabilitation Potential: Good Anticipated Interventions Patient/Client Instruction: Educate patient on: Condition and Plan of Care For the Purpose of:: To decrease pain, To increase ROM, To improve nutrient delivery to tissue, To improve muscle performance and motor function, To improve ability to perform ADL's, To improve ability of physical actions for home/community/work/leisure, To improve health of tissue, To decrease soft tissue restriction and To increase flexibility/ROM Therapeutic Exercise to Include: Strength training, Postural training, Flexibilty training, Neuromotor development, Passive ROM, Active ROM and Ben Exercises For the Purpose of:: To decrease pain, To increase ROM, To improve nutrient delivery to tissue, To improve muscle performance and motor function, To improve health of tissue, To decrease soft tissue restriction and To increase flexibility/ROM Manual Therapy Techniques to Include: Passive ROM and Soft tissue mobilization For the Purpose of:: To decrease pain, To increase ROM, To improve nutrient delivery to tissue, To improve muscle performance and motor function, To improve health of tissue, To decrease soft tissue restriction and To increase flexibility/ROM Text: Thank you for the opportunity to evaluate your patient. For Medicare and Medicare HMO plans, please review the plan of care and approve it. It will need to be FAXED BACK to us at [phone] for Medicare purposes. For Medicare only, by signing this I certify the plan of care. Please let me know if there are questions or concerns regarding this plan of care. Physician Signature: Date:
--- NOTE | 2023-12-20 16:21 | HP.PTDCNRP_ITS ---
Patient Information Patient Information: PRADEEP VARGAS was seen in my office for initial evaluation on 11/22/23. The following Plan of Care was established for this patient: POC Established Initial Frequency: 1x/Week Initial Duration: 4 Weeks Anticipated Interventions Patient/Client Instruction: Educate patient on: Condition and Plan of Care For the Purpose of:: To decrease pain, To increase ROM, To improve nutrient delivery to tissue, To improve muscle performance and motor function, To improve ability to perform ADL's, To improve ability of physical actions for home/co mmunity/work/leisure, To improve health of tissue, To decrease soft tissue restriction and To increase flexibility/ROM Therapeutic Exercise to Include: Strength training, Postural training, Flexibilty training, Neuromotor development, Passive ROM, Active ROM and Ben Exercises For the Purpose of:: To decrease pain, To increase ROM, To improve nutrient delivery to tissue, To improve muscle performance and motor function, To improve health of tissue, To decrease soft tissue restriction and To increase flexibility/ROM Manual Therapy Techniques to Include: Passive ROM and Soft tissue mobilization For the Purpose of:: To decrease pain, To increase ROM, To improve nutrient delivery to tissue, To improve muscle performance and motor function, To improve health of tissue, To decrease soft tissue restriction and To increase flexibility/ROM Last Seen Last Seen: This patient was last seen in our office . Pertinent comments regarding their Physical therapy will appear below: At this point I will be discontinuing this patient from physical therapy. I would be happy to see this patient again in the future if found appropriate by the physician. Thank you! Shari Robin, CAROLYNE Balance/Gait/Functional tests Balance/Special Test Scores Oswestry Neck Score: 6
== END 2023-12-06 19:00 | disposition home or self-care (01) ==
LOC: PT 16:30
PROVIDERS: PCP Internal Medicine; Referring Provider Internal Medicine; Visit Provider Internal Medicine
DX: M54.12 Radiculopathy, cervical region (principal); R20.2 Paresthesia of skin
CPT/HCPCS: 97110; 97140; 97162

== ENCOUNTER → 2023-12-14 | Outpatient (CLI) | payer BC, SELFPAY ==
--- NOTE | 2023-12-14 15:57 | CT_ITS ---
STUDY: LOW DOSE CT LUNG CANCER SCREENING REASON FOR EXAM: Male, 58 years old. - Smoker. Patient smokes 1 pack per day for 30 years. RADIATION DOSAGE (If Supplied By Facility): CTDIvol = ( 2.39 ) mGy, DLP = ( 82.80 ) mGycm TECHNIQUE: No contrast was administered. Low dose technique was utilized (average mAS-38 and kVp 120). 1.25 mm axial source images with a slice interval of 1.25-mm were reconstructed in lung windows. 2.5 mm axial source images with a slice interval of 2.5-mm were reconstructed in lung windows. 5.0 mm axial source images with a slice interval of 5.0-mm were reconstructed in soft tissue windows. COMPARISON: None. NODULES: No suspicious nodules are seen. Emphysema: Hyperinflation. Mild degree of emphysematous changes. Endobronchial lesion: None Aorta: Minimal atherosclerotic calcific plaques. CORONARY ARTERIES: Coronary artery calcification minimal coronary artery calcification. Heart: Unremarkable Pulmonary artery: Unremarkable Mediastinal nodes: Small mediastinal lymph nodes. Other chest and abdominal findings: CT/Low Dose CT Lung Screening IMPRESSION: Lung-RADS category 2 - Continue annual screening with LDCT in 12 months. IMPORTANT NOTES FOR USE: ACR Lung-RADS Version 1.1 Assessment Categories Release Date: 2018 Category: Coded 0-4 bases on nodule(s) with highest degree of suspicion. Negative screen is defined as categories 1 and 2; a positive screen is defined as categories 3 and 4. Category 3 and 4A nodules that are unchanged on interval CT should be coded as category 2, and individuals returned to screening in 12 months. Category 4X: Category 3 or 4 nodules with additional imaging findings that increase the suspicion of lung cancer, such as spiculation, GGN that doubles in size in 1 year, enlarged lymph notes, etc. Category Modifiers: S (significant finding unrelated to lung cancer) Electronically Signed: Bradley Diane MD at 10:11 EDT ,
== END | disposition home or self-care (01) ==
LOC: CT 15:55
PROVIDERS: PCP Internal Medicine; Referring Provider Internal Medicine; Visit Provider Internal Medicine
DX: F17.200 Nicotine dependence, unspecified, uncomplicated (principal)
CPT/HCPCS: 71271

== ENCOUNTER → 2024-05-15 | Outpatient (CLI) | payer BC, SELFPAY ==
--- NOTE | 2024-05-15 15:45 | CT_ITS ---
PROCEDURE: CT SINUS/FACIAL BONES REASON FOR EXAM: DENTAL PAIN. TECHNIQUE: Contiguous axial scans of 1.25 mm slice thicknesses with sagittal and coronal reconstruction images. One or more dose reduction techniques were utilized (e.g., automated exposure control, adjustment of mA and/or kv according to patient size, use of iterative reconstruction technique). COMPARISON: None. FINDINGS: Frontal: Mild mucoperiosteal thickening. Ethmoid: Mild mucoperiosteal thickening Sphenoid: Small air-fluid level in the left sphenoid sinus. Maxillary: A 2.2 x 1.7 x 2.1 cm cystic mass involving the anterior aspect of the right maxilla with erosion into the floor of the sinus and medial extension to the nasal septum. Turbinates: Unremarkable. Nasal Septum: Mild erosive change along the right side of the septum. Mastoids/Middle Ears: Clear at visualized levels. Visualized intracranial structures are unremarkable. No suspicious contrast enhancement. CT/Sinus/Facial Bone IMPRESSION: 1. 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 Erosive change involving the floor of the right maxillary sinus and right side of the nasal septum. 2. Mild inflammatory changes involving the paranasal sinuses. Reading Location: [facility]
== END | disposition home or self-care (01) ==
LOC: CT 15:38
PROVIDERS: PCP Internal Medicine; Referring Provider Otolaryngology; Visit Provider Otolaryngology
DX: J32.8 Other chronic sinusitis (principal)
CPT/HCPCS: 70486

== ENCOUNTER → 2024-08-20 | Outpatient (CLI) | payer BC, SELFPAY ==
[2024-08-20 07:18] LABS: Bacteria 0 SEEN /hpf (None Seen); Mucous, Urine 0 SEEN /hpf (<or=2+); Red Blood Cells-Urine 0 SEEN /hpf (0-5); Squamous Epithelial Cells - UA 0 SEEN /hpf (0-5); White Blood Cells 0 SEEN /hpf (0-5)
[2024-08-20 09:59] LABS: Absolute Lymphocyte Count 2.83 X10^3/uL (0.83-4.51); Basophil# 0.04 X10^3/uL; Basophil% 0.4 % (0-1); Eosinophil# 0.38 X10^3/uL; Eosinophils% 4.2 % (0-5); Hematocrit 38.9 % (40-54); Hemoglobin 13.3 g/dL (13.0-16.5); Lymphocyte # 2.83 X10^3/ul (0.83-4.51); Lymphocyte % 30.9 % (19-41); Mean Corp Hgb Conc 34.2 g/dL (32-36); Mean Corpuscular Volume 93.7 fL (80-94); Mean Platelet Vol. 9.1 fl (6.2-12.0); Monocyte# 0.88 X10^3/uL; Monocyte% 9.6 % (0-10); NRBC Flagged by Analyzer 0 % (0-5); Neutrophil # 4.98 X10^3/uL (2.7-7.7); Neutrophil % 54.5 % (47-70); Platelet Count 340 K/mm3 (150-450); RBC Distribution Width CV 13.2 % (11.6-14.6); RBC Distribution Width SD 45.1 fl (35.1-43.9); Red Blood Count 4.15 M/mm3 (4.6-6.2); White Blood Count 9.2 K/mm3 (4.4-11.0)
[2024-08-20 10:14] LABS: Color, Urine Yellow (Yellow); Glucose, Dipstick Normal (Normal); Ketone-Dipstick Negative (Negative); Leukocyte Esterase-Dipstick Negative /ul (Negative); Nitrite-Dipstick Negative (Negative); Occult Blood-Urine Negative /ul (Negative); Protein-Dipstick 15 mg/dl (Negative); Urine Bilirubin Dipstick Negative (Negative); Urine Clarity Sl. Cloudy (Clear); Urine Urobilinogen Normal (Normal)
[2024-08-20 10:28] LABS: Amorphous Sediment 2+ PHOS
[2024-08-20 10:33] LABS: Microalbumin,Random Urine < 12.0 mg/L (NO RANGE EST.); Microalbumin:Creatinine Ratio UNABLE TO CALCULATE mg/g CRE
[2024-08-20 10:58] LABS: ALB/GLOB Ratio 1.8 RATIO (0.9-2.4); AST(SGOT) 40 U/L (<=37); Alanine Aminotransfer ALT/SGPT 36 U/L (<=46); Albumin, Serum 4.4 g/dL (3.5-5.0); Alkaline Phosphatase 41 U/L (40-129); Anion Gap 10 (5-15); BUN 22 mg/dL (4-19); Calcium,Total 9.7 mg/dL (7.6-11.0); Chloride 105 mmol/L (98-108); Cholesterol 120 mg/dL (<=200); Creatinine, Serum 1.18 mg/dL (0.70-1.20); EST Glomerular Filtration Rate 72 (>60); Globulin 2.4 g/dL (2.2-4.2); Glucose 112 mg/dL (70-99); High Density Lipoprotein 38 mg/dL; Low Density Lipoprotein Calc. 64 mg/dL; Potassium 4.1 mmol/L (3.3-5.1); Protein, Total 6.7 g/dL (5.9-8.4); Sodium Level 140 mmol/L (133-145); Total Bilirubin 0.18 mg/dL (0.00-1.30); Triglycerides 92 mg/dL; Very Low Density Lipoprotein 18 mg/dL (5-40); Vitamin D,25 Hydroxy 54.4 ng/mL (30-100); cholesterol:hdl ratio screen 3.19
== END | disposition home or self-care (01) ==
LOC: MTLAB 07:11
PROVIDERS: PCP Internal Medicine; Referring Provider Internal Medicine; Visit Provider Internal Medicine
DX: E78.5 Hyperlipidemia, unspecified (principal); E03.9 Hypothyroidism, unspecified; E55.9 Vitamin D deficiency, unspecified; R73.09 Other abnormal glucose
CPT/HCPCS: 36415; 80053; 80061; 81001; 82043; 82306; 82570; 84443; 85025

== ENCOUNTER → 2024-09-24 | Outpatient (CLI) | payer BC, SELFPAY ==
[2024-09-26 17:07] LABS: PSA, Total 0.6 ng/mL (0.0-4.0)
== END | disposition home or self-care (01) ==
PROVIDERS: PCP Internal Medicine; Referring Provider Internal Medicine; Visit Provider Internal Medicine
DX: Z12.5 Encounter for screening for malignant neoplasm of prostate (principal); J44.9 Chronic obstructive pulmonary disease, unspecified
CPT/HCPCS: 36415; 84153; 94060; 94726; 94729; G0103

== ENCOUNTER → 2025-02-25 | Outpatient (CLI) | payer BC, SELFPAY ==
--- OUTSIDE RECORDS SUMMARY | 2025-02-25 07:14 | XMS RPT_ITS | CCD ---
Author Organization [facility] ion [facility] Care Team Providers Care Boarder Machine Name Role Phone Brittani Shepherd Unavailable [facility], [facility] Unavailable Bo Heath Unavailable Michelle Bo Unavailable Arcadio Lane Unavailable Melina Hook Unavailable Unavailable Messenger, Kalyani Unavailable Unavailable Ethel Drea Unavailable Unavailable Unavailable Joyce Roca Unavailable Valeri Suarez Unavailable Unavailable Unavailable Unavailable Brittani Shepherd Unavailable [facility], [facility] Unavailable Bo Heath Unavailable Michelle Bo Unavailable Arcadio Lane Unavailable Joyce Roca Unavailable [phone] Valeri Suarez Unavailable Unavailable Messenger, Kalyani Unavailable Unavailable Ciesa, Drea Unavailable Unavailable Unavailable Aide Elder Unavailable Unavailable Gravius, Gretel Unavailable Unavailable Gravius, Gretel Unavailable Unavailable Chalino Reyes Unavailable Unavailable Messenger, Kalyani Unavailable Unavailable Chalino Olmedo Unavailable Unavailable Brittani Shepherd DO Unavailable [facility] Bo Heath Unavailable Anupam HESS, Michelle Gordillo Unavailable Arcadio Lane Unavailable Joyce Roca Unavailable Gravius NURSE RESEARCHER, Gretel Unavailable Unavailable Cross LAW OFFICE MANAGER, Nataly Unavailable Unavailable Honorio LAW OFFICE MANAGER, Chalino Unavailable Unavailable David RN, Kalyani Unavailable Unavailable Unavailable Unavailable Joao DO, Brittani Unavailable Anupam HESS, Michelle Gordillo Unavailable Anthony LAW OFFICE MANAGER, Crystal Unavailable Unavailable Akshat LAW OFFICE MANAGER, NITHIN Unavailable Unavailable Joao DO, Brittani Attending Unavailable Joao DO, Brittani Referring Unavailable Joao DO, Brittani Consulting Unavailable Rayne Emmanuel MA Unavailable Unavailable Joao DO, Brittani K Primary Care Provider TORIBIO MOE Attending Unavailable JOAO, BRITTANI K Primary Care Unavailable Joao DO, Dr. Peter Primary Care Provider Dr. Dago Antony MD Attending Provider Dr. Dago Antony MD Referring Provider Rico HESS, Dr. Flores Attending Provider Joao DO, Dr. Peter Attending Provider Joao JOSEPH, Dr. Peter Referring Provider Joao JOSEPH, Dr. Peter Primary Care Provider [phone] Kenny JOSEPH, Dr. Guevara Attending Provider Mark Gómez Attending Unavailable Brittani Shepherd Primary Care Unavailable JoaoBrittani Referring Unavailable JoaoBrittani Primary Care Unavailable JoaoBrittani Attending Unavailable Joao, Brittani Referring Unavailable JoaoBrittani Primary Care Unavailable Joao, Brittani Attending Unavailable Joao, Brittani Referring Unavailable Ismael Cox Attending Unavailable Joao, Brittani Primary Care Unavailable Joao, Brittani Attending Unavailable Joao, Brittani Referring Unavailable Joao, Brittani Primary Care Unavailable Joao, Brittani Attending Unavailable Joao, Brittani Referring Unavailable Joao, Brittani Primary Care Unavailable Dago Antony Attending Unavailabl e Dago Antony Referring Unavailabl e Joao, Brittani Primary Care Unavailable Joao, Brittani Attending Unavailable Joao, Brittani Referring Unavailable Joao, Brittani Primary Care Unavailable Allergies Allergy Classification Reported Allergen(s) Allergy Type Date of Onset Reaction(s) Facility Unclassified (1 source) Allergy to substance (finding) [facility] Work Phone: Unclassified (1 source) Allergy to substance (finding) [facility] Work Phone: Unclassified (1 source) Allergy to substance (finding) [facility] Work Phone: Unclassified (1 source) Allergy to substance (finding) [facility] Work Phone: Unclassified (1 source) Allergy to substance (finding) [facility] Work Phone: Unclassified (1 source) Allergy to substance (finding) [facility] Work Phone: Unclassified (1 source) Allergy to substance (finding) [facility] Work Phone: Unclassified (1 source) Allergy to substance (finding) [facility] Work Phone: Unclassified (1 source) Allergy to substance (finding) [facility] Work Phone: Unclassified (1 source) Allergy to substance (finding) [facility] Work Phone: Unclassified (1 source) Allergy to substance (finding) [facility] Work Phone: (1 source) allergy to substance [facility] Work Phone: (1 source) allergy to substance [facility] Work Phone: (1 source) allergy to substance [facility] Work Phone: (1 source) allergy to substance [facility] Work Phone: (1 source) allergy to substance [facility] Work Phone: (1 source) allergy to substance [facility] Work Phone: (1 source) allergy to substance [facility] Work Phone: (1 source) allergy to substance [facility] Work Phone: (1 source) allergy to substance [facility] Work Phone: (1 source) allergy to substance [facility] Work Phone: (1 source) allergy to substance [facility] Work Phone: (7 sources) dust, pollen, rag weed Allergy to substance (finding) [facility] Work Phone: (1 source) Allergy to substance (finding) [facility] Work Phone: (1 source) Allergy to substance (finding) [facility]; [facility] Work Phone: (1 source) Allergy to substance (finding) [facility] Work Phone: (1 source) Allergy to substance (finding) [facility] Work Phone: (1 source) Allergy to substance (finding) [facility]; [facility] Work Phone: (1 source) Allergy to substance (finding) [facility]; [facility] Work Phone: (1 source) Allergy to substance (finding) [facility] Work Phone: (1 source) Allergy to substance (finding) [facility]; [facility] Work Phone: (1 source) Allergy to substance (finding) [facility]; [facility] Work Phone: Medications Current Medications Medication Drug Class(es) Dates Sig (Normalized) Sig (Original) [id number] actuat albuterol 0.09 mg/actuat metered dose inhaler (20 sources) beta2-Adrenergic Agonist Start: 07-13-2023 take 2 puff(s) by inhalation every six hours albuterol 90 mcg/actuation inhaler Inhale 2 puffs every 6 hours if needed. 07/13/2023 Active Start: 08-15-2022 Start: 06-24-2019 Start: 06-24-2019 ProAir HFA 108 (90 Base) MCG/ACT Inhalation Aerosol Solution 2 (two) Aerosol Soln q 6 hr prn for 0 days Quantity: 1 {Inhaler} Refills: 1 Ordered: 24-Jun-2019 Brittani Shepherd DO, DO, Kathleen Start : 24-Jun-2019 Active Start: 06-05-2015 PROAIR HFA, 10 8 (90 Base)MCG/ACT (Inhalation Aerosol Solution) 2 (two) Aerosol Soln q 6 hr prn for 0 days Quantity: 1 {Box} Refills: 1 Ordered: 05-Jun-2015 Brittani Shepherd DO, DO, Kathleen Start : 05-Jun-2015 Active Start: 11-25-2009 End: 11-26-2010 Start: 11-25-2009 End: 11-26-2010 Start: 11-25-2009 End: 11-26-2010 VENTOLIN HFA, 108 (90 Base)M CG/ACT (Inhalation Aerosol Solution) 2 (two) Aerosol Soln q 6 hr prn for 0 days Quantity: 1 {Aerosol_Soln} Refills: 1 Ordered: 26-Nov-2010 NITHNI Oden LPN Start : 25-Nov-2009 End : 26-Nov-2010 Inactive ALPRAZolam 1 mg oral tablet (1 source) Benzodiazepine Start: 10-09-2023 ALPRAZolam (Xanax) 1 mg tablet TAKE ONE TABLET 1 HOUR PRIOR TO PROCEDURE. DO NOT DRIVE 10/09/2023 Active atorvastatin 10 mg oral tablet (8 sources) HMG-CoA Reductase Inhibitor Start: 03-17-2024 take 1 tablet by mouth once daily at bedtime atorvastatin (Lipitor) 10 mg tablet Take 1 tablet (10 mg) by mouth once daily at bedtime. 03/17/2024 Active Start: 12-01-2022 End: 11-13-2022 Start: 08-15-2022 Start: 02-14-2022 End: 02-06-2022 Start: 11-08-2021 busPIRone hydrochloride 15 mg oral tablet (20 sources) Start: 05-14-2024 take 1.5 tablets by mouth every twelve hours busPIRone (Buspar) 15 mg tablet Take 1.5 tablets (22.5 mg) by mouth every 12 hours. 05/14/2024 Active Start: 08-15-2022 Start: 06-19-2019 take 1.5 tablets by mouth twice daily busPIRone HCl 15 MG Oral Tablet 1.5 Tablet bid for 90 days Quantity: 270 {Tablet} Refills: 3 Ordered: 20-Jul-2020 Brittani Shepherd DO, DO, Kathleen Start : 20-Jul-2020 Active Start: 03-27-2018 take 1.5 tablets by mouth twice daily BusPIRone HCl 15 MG Oral Tablet 1.5 Tablet bid for 90 days Quantity: 270 {Tablet} Refills: 3 Ordered: 27-Mar-2018 Brittani Shepherd DO, DO, Kathleen Start : 27-Mar-2018 Active Start: 03-04-2018 Start: 06-23-2017 take 1.5 tablets by mouth twice daily BusPIRone HCl 15 MG Oral Tablet 1.5 Tablet bid for 90 days Quantity: 270 {Tablet} Refills: 3 Ordered: 23-Jun-2017 Brittani Shepherd DO, DO, Kathleen Start : 23-Jun-2017 Active doxycycline monohydrate 100 mg oral capsule (2 sources) Tetracycline-class Drug Start: 09-10-2020 take 1 capsule by mouth twice daily Doxycycline Monohydrate 100 MG capsule Active 100 mg PO TWICE A DAY September 10, 2020 12:00am fenofibrate 130 mg oral capsule (1 source) Peroxisome Proliferator Receptor alpha Agonist Start: 05-25-2024 take 1 capsule by mouth in the morning fenofibrate micronized (Antara) 130 mg capsule Take 1 capsule (130 mg) by mouth early in the morning.. 05/25/2024 Active levoFLOXacin 750 mg oral tablet (20 sources) Quinolone Antimicrobial Start: 10-11-2023 take 1 tablet by mouth in the morning levoFLOXacin (Levaquin) 750 mg tablet Take 1 tablet (750 mg) by mouth early in the morning.. 10/11/2023 Active Start: 02-25-2015 End: 03-04-2015 levothyroxine sodium 0.025 mg oral tablet (20 sources) l-Thyroxine Start: 05-16-2024 take 1 tablet by mouth in the morning Synthroid 25 mcg tablet Take 1 tablet (25 mcg) by mouth early in the morning.. 05/16/2024 Active Start: 08-15-2022 Start: 08-02-2021 Start: 02-26-2021 Start: 11-04-2019 Comment on above: nishant metFORMIN hydrochloride 500 mg oral tablet (20 sources) Biguanide Start: 03-09-2024 take 1 tablet by mouth every twelve hours metFORMIN (Glucophage) 500 mg tablet Take 1 tablet (500 mg) by mouth every 12 hours. 03/09/2024 Active Start: 08-15-2022 Start: 11-08-2021 Start: 08-02-2021 Start: 09-09-2020 Start: 06-19-2019 Start: 09-24-2018 Metformin 500 mg tablet Active PO 90 90 September 24, 2018 12:00am Start: 09-10-2018 take 1 tablet by adryan th once daily metFORMIN HCl 500 MG Oral Tablet 1 Tablet qd for 90 days Quantity: 90 {Tablet} Refills: 3 Ordered: 10-Sep-2018 Brittani Shepherd DO, DO, Kathleen Start : 10-Sep-2018 Active Start: 06-23-2017 take 1 tablet by adryan th once daily MetFORMIN HCl 500 MG Oral Tablet 1 Tablet qd for 90 days Quantity: 90 {Tablet} Refills: 3 Ordered: 23-Jun-2017 Brittani Shepherd DO, DO, Kathleen Start : 23-Jun-2017 Active omeprazole 20 mg delayed release oral capsule (20 sources) Proton Pump Inhibitor Start: 06-19-2019 Omeprazo le 20 MG Oral Capsule Delayed Release [address] QD for 90 days Quantity: 90 {Capsule} Refills: 3 Ordered: 19-Jun-2019 Gretel Melvin CMA Start : 19-Jun-2019 Active Start: 06-07-2018 Omeprazole 20 MG Oral Capsule Delayed Release [address] QD for 90 days Quantity: 90 {Capsule} Refills: 3 Ordered: 07-Jun-2018 Chalino Reyes Start : 07-Jun-2018 Active Start: 03-31-2016 take 1 capsule by mo [facility] once daily Omeprazole 20 MG capsule,delayed release(DR/EC) Active 20 mg PO DAILY March 04, 2018 1:00am 24 hr venlafaxine 75 mg extended release oral capsule (20 sources) Serotonin and Norepinephrine Reuptake Inhibitor Start: 05-15-2024 take 1 capsule by mouth three times daily venlafaxine XR (Effexor-XR) 75 mg 24 hr capsule Take 1 capsule (75 mg) by mouth 3 times a day. 05/15/2024 Active Start: 08-15-2022 Start: 08-02-2021 Start: 06-19-2019 Start: 08-13-2018 Effexor XR 75 MG Oral Capsule Extended Release 24 Hour 1 Capsule ER 24HR tid for 90 days Quantity: 270 {Capsule} Refills: 3 Ordered: 13-Aug-2018 Brittani Shepherd DO, DO, Kathleen Start : 13-Aug-2018 Active Start: 03-30-2018 Effexor XR 75 MG Oral Capsule Extended Release 24 Hour 1 Capsule ER 24HR tid for 90 days Quantity: 270 {Capsule} Refills: 3 Ordered: 30-Mar-2018 Brittani Shepherd DO, DO, Kathleen Start : 30-Mar-2018 Active Start: 03-04-2018 take 1 capsule by mo [facility] once daily Venlafaxine 75 MG capsule Active 75 mg PO DAILY March 04, 2018 1:00am Start: 06-23-2017 Effexor XR 75 MG Oral Capsule Extended Release 24 Hour 1 Capsule ER 24HR tid for 90 days Quantity: 270 {Capsule} Refills: 3 Ordered: 23-Jun-2017 Brittani Shepherd DO, DO, Kathleen Start : 23-Jun-2017 Active Start: 04-13-2007 End: 04-25-2007 Completed/Discontinued Medications Medication Drug Class(es) Dates Sig (Normalized) Sig (Original) amoxicillin 500 mg oral capsule (2 sources) Penicillin-class Antibacterial Start: 07-01-2021 End: 07-11-2021 take 2 capsules by mouth twice daily Amoxicillin 500 mg capsule Discontinued 1000 mg PO TWICE A DAY 40 July 01, 2021 12:00am July 10, 2021 12:00am July 11, 2021 12:03am amoxicillin 875 mg / clavulanate 125 mg oral tablet (20 sources) Penicillin-class Antibacterial Start: 11-23-2015 End: 12-07-2015 Start: 11-23-2015 End: 12-07-2015 take 1 tablet by mouth twice daily Augmentin 875-125 MG Oral Tablet 1 (one) Tablet Tablet Twice daily for 14 days Quantity: 28 {Tablet} Refills: 0 Ordered: 23-Nov-2015 Kalyani Hernandez RN Start : 23-Nov-2015 End : 07-Dec-2015 Inactive 24 hr amphetamine aspartate 2.5 mg / amphetamine sulfate 2.5 mg / dextroamphetamine saccharate 2.5 mg / dextroamphetamine sulfate 2.5 mg extended release oral capsule (20 sources) Central Nervous System Stimulant Start: 01-14-2011 End: 09-20-2012 Comment on above: [facility] order 24 hr amphetamine aspartate 2.5 mg / amphetamine sulfate 2.5 mg / dextroamphetamine saccharate 2.5 mg / dextroamphetamine sulfate 2.5 mg extended release oral capsule (1 source) Central Nervous System Stimulant Start: 01-14-2011 End: 09-20-2012 take 1 capsule by mouth once daily ADDERALL XR, 10MG (Oral Capsule Extended Release 24 Hour) 1 Capsule ER 24HR qd for 0 days Quantity: 90 {Capsule_ER_24 HR} Refills: 0 Ordered: 20-Sep-2012 Kalyani Hernandez LPN Start : 14-Jan-2011 End : 20-Sep-2012 Inactive Comments: [facility] order Comment on above: [facility] order betamethasone 0.5 mg/ml / clotrimazole 10 mg/ml topical cream (20 sources) Azole Antifungal, Corticosteroid Start: 04-22-2008 End: 02-19-2009 Start: 04-22-2008 End: 02-19-2009 LOTRISONE, 1-0.05% (External Cream) 1/2 (one half) Cream QHS / HS for 0 days Quantity: 45 {Cream} Refills: 1 Ordered: 22-Apr-2008 Mihaela Kim Start : 22-Apr-2008 End : 19-Feb-2009 Inactive Comments: 45 GRAM TUBE Comment on above: 45 GRAM TUBE cefadroxil 500 mg oral capsu le (20 sources) Cephalosporin Antibacterial Start: 11-30-2016 End: 12-07-2016 cefdinir 300 mg oral capsule (8 sources) Cephalosporin Antibacterial Start: 08-02-2021 End: 11-08-2021 cetirizine hydrochloride 10 mg oral tablet (20 sources) Histamine-1 Receptor Antagonist Start: 04-13-2007 End: 11-30-2016 Comment on above: This order discontin ued per [facility]. codeine phosphate 2 mg/ml / guaiFENesin 20 mg/ml oral solution (20 sources) Opioid Agonist Start: 04-26-2016 End: 08-29-2016 Start: 04-26-2016 End: 08-29-2016 take 1-2 [tsp_us] by mouth once daily at bedtime as needed for cough Cheratussin AC 100-10 MG/5ML Oral Solution 1-2 Teaspoon Teaspoon qhs prn cough for 0 days Quantity: 6 {Ounce} Refills: 0 Ordered: 29-Aug-2016 Kalyani Hernandez RN Start : 26-Apr-2016 End : 29-Aug-2016 Inactive crisaborole 0.02 mg/mg topic al ointment (20 sources) Start: 06-23-2017 End: 06-19-2019 Start: 06-23-2017 End: 06-19-2019 Eucrisa 2 % External Ointmen t 1 (one) Application Application bid for 0 days Quantity: 1 {Tube} Refills: 0 Ordered: 19-Jun-2019 Gravius NURSE RESEARCHER, Gretel Start : 23-Jun-2017 End : 19-Jun-2019 Inactive cyclobenzaprine hydrochlorid e 10 mg oral tablet (20 sources) Muscle Relaxant Start: 07-16-2010 End: 08-18-2010 Comment on above: thirty Deplin (20 sources) Start: 08-08-2011 End: 09-20-2012 Start: 08-08-2011 End: 09-20-2012 take 1 tablet by mouth once daily DEPLIN, 15MG (Oral Tablet) 1 Tablet qd for 0 days Quantity: 90 {Tablet} Refills: 3 Ordered: 08-Aug-2011 Kalyani Hernandez LPN Start : 08-Aug-2011 End : 20-Sep-2012 Discontinued Comments: This order discontinued per [facility]. Start: 09-10-2009 End: 07-16-2010 Start: 09-10-2009 End: 07-16-2010 take 1 tablet by mouth once daily DEPLIN, 7.5MG (Oral Tablet) 1 (one) Tablet daily for 0 days Quantity: 90 {Tablet} Refills: 3 Ordered: 16-Jul-2010 Kalyani Hernandez LPN Start : 10-Sep-2009 End : 16-Jul-2010 Inactive Comment on above: This order discontin ued per [facility]. DEPLIN, 15MG (Oral Tablet) (13 sources) Start: 08-08-2011 End: 09-20-2012 take 1 tablet by mouth once daily DEPLIN, 15MG (Oral Tablet) 1 Tablet qd for 0 days Quantity: 90 {Tablet} Refills: 3 Ordered: 08-Aug-2011 Kalyani Hernandez RN Start : 08-Aug-2011 End : 20-Sep-2012 Discontinued Comments: This order discontinued per [facility]. Start: 08-08-2011 End: 09-20-2012 take 1 tablet by mouth once daily DEPLIN, 15MG (Oral Tablet) 1 Tablet qd for 0 days Quantity: 90 {Tablet} Refills: 3 Ordered: 08-Aug-2011 Kalyani Hernandez LPN Start : 08-Aug-2011 End : 20-Sep-2012 Discontinued Comments: This order discontinued per [facility]. Comment on above: This order discontin ued per [facility]. DEPLIN, 7.5MG (Oral Tablet) (13 sources) Start: 09-10-2009 End: 07-16-2010 take 1 tablet by mouth once daily DEPLIN, 7.5MG (Oral Tablet) 1 (one) Tablet daily for 0 days Quantity: 90 {Tablet} Refills: 3 Ordered: 16-Jul-2010 Kalyani Hernandez RN Start : 10-Sep-2009 End : 16-Jul-2010 Inactive Start: 09-10-2009 End: 07-16-2010 take 1 tablet by mouth once daily DEPLIN, 7.5MG (Oral Tablet) 1 (one) Tablet daily for 0 days Quantity: 90 {Tablet} Refills: 3 Ordered: 16-Jul-2010 Kalyani Hernandez LPN Start : 10-Sep-2009 End : 16-Jul-2010 Inactive diazePAM 5 mg oral tablet (20 sources) Benzodiazepine Start: 07-25-2013 End: 05-30-2014 Comment on above: seven diphenhydrAMINE hydrochlorid e 25 mg oral capsule (20 sources) Histamine-1 Receptor Antagonist Start: 11-30-2016 End: 06-19-2019 docusate sodium 100 mg oral capsule (20 sources) Start: 01-12-2018 End: 06-19-2019 24 hr etodolac 400 mg extend ed release oral tablet (20 sources) Nonsteroidal Anti-inflammatory Drug Start: 08-29-2016 End: 05-01-2017 Start: 08-29-2016 End: 05-01-2017 take 2 tablets by mouth every twenty-four hours, then take 1 tablet by mouth once daily at mealtime Etodolac ER 400 MG Oral Tablet Extended Release 24 Hour 2 (two) Tablet ER 24HR Tablet ER 24HR qd with food for 0 days Quantity: 20 {Tablet} Refills: 0 Ordered: 01-May-2017 Kalyani Hernandez RN Start : 29-Aug-2016 End : 01-May-2017 Inactive crisaborole 0.02 mg/mg topic al ointment (5 sources) Start: 06-23-2017 Eucrisa 2 % Ex ternal Ointment 1 (one) Application Application bid for 0 days Quantity: 1 {Tube} Refills: 0 Ordered: 23-Jun-2017 Long LAW OFFICE MANAGER, Melina L Start : 23-Jun-2017 Active Start: 06-23-2017 Eucrisa 2 % Ex ternal Ointment 1 (one) Application Application bid for 0 days Quantity: 1 {Tube} Refills: 0 Ordered: 23-Jun-2017 Long LAW OFFICE MANAGER, Melina L Start : 23-Jun-2017 Active ezetimibe 10 mg oral tablet (20 sources) Dietary Cholesterol Absorption Inhibitor Start: 05-17-2006 End: 06-06-2006 Comment on above: B/C OF LIVER ENZ MARKELL VATION 12 hr fexofenadine hydrochlo ride 60 mg / pseudoephedrine hydrochloride 120 mg extended release oral tablet (20 sources) alpha-Adrenergic Agonist, Histamine-1 Receptor Antagonist Start: 11-01-2007 End: 04-22-2008 Start: 11-01-2007 End: 04-22-2008 take 60-120 mg by mouth twice daily ZACH-D 12 HOUR, 60-120MG (Oral Tablet Extended Release 12 Hour) 1 (one) Tablet ER 12HR Twice daily for 0 days Quantity: 10 {Tablet_ER_12HR} Refills: 0 Ordered: 01-Nov-2007 Kalyani Hernandez RN Start : 01-Nov-2007 End : 22-Apr-2008 Inactive Start: 11-01-2007 End: 04-22-2008 take 1 tablet by mouth every twelve hours ZACH-D 12 HOUR, 60-120MG (Oral Tablet Extended Release 12 Hour) 1 (one) Tablet ER 12HR Twice daily for 0 days Quantity: 10 {Tablet_ER_12HR} Refills: 0 Ordered: 01-Nov-2007 Kalyani Hernandez LPN Start : 01-Nov-2007 End : 22-Apr-2008 Inactive Fish Oil Concentrate (20 sources) Start: 07-29-2020 Start: 02-23-2015 Start: 02-23-2015 take 1 capsule by mouth once d aily FISH OIL CONCENTRATE, 300MG (Oral Capsule) 1 (one) Capsule daily for 30 days Quantity: 30 {Capsule} Refills: 0 Ordered: 23-Feb-2015 Janneth Christensen CNP Start : 23-Feb-2015 Active FISH OIL CONCENTRATE, 300MG (Oral Capsule) (13 sources) Start: 02-23-2015 take 1 capsule by mouth once daily FISH OIL CONCENTRATE, 300MG (Oral Capsule) 1 (one) Capsule daily for 30 days Quantity: 30 {Capsule} Refills: 0 Ordered: 23-Feb-2015 Janneth Christensen CNP Start : 23-Feb-2015 Active fluticasone propionate 0.05 mg/actuat metered dose nasal spray (20 sources) Corticosteroid Start: 11-25-2009 End: 07-16-2010 Flonase Active 12 hr guaiFENesin 600 mg extended release oral tablet (20 sources) Start: 02-25-2015 End: 06-05-2015 ibuprofen 200 mg oral tablet (20 sources) Nonsteroidal Anti-inflammatory Drug Start: 04-23-2019 End: 06-19-2019 Start: 04-23-2019 End: 06-19-2019 take 2 tablets by mouth every six hours Advil 200 MG Oral Tablet 2 (two) Tablet q 6 hrs for 0 days Quantity: 30 {Tablet} Refills: 0 Ordered: 19-Jun-2019 Gretel Melvin CMA Start : 23-Apr-2019 End : 19-Jun-2019 Inactive Start: 03-20-2018 End: 06-19-2019 Start: 11-30-2016 take 1 tablet by adryan th every eight hours as needed Ibuprofen 400 MG Oral Tablet 1 (one) Tablet Tablet q8hrs prn for 0 days Quantity: 30 {Tablet} Refills: 0 Ordered: 01-May-2017 Kalyani Hernandez LPN Start : 30-Nov-2016 Active LORazepam 0.5 mg oral tablet (20 sources) Benzodiazepine Start: 07-16-2010 End: 11-26-2010 Comment on above: thirty meloxicam 15 mg oral tablet (20 sources) Nonsteroidal Anti-inflammatory Drug Start: 12-03-2018 End: 06-19-2019 Start: 10-18-2018 take 1 tablet by adryan th once daily at mealtime Meloxicam 15 MG Oral Tablet 1 (one) Tablet daily for 0 days Quantity: 30 {Tablet} Refills: 0 Ordered: 18-Oct-2018 Janneth Christensen CNP Start : 18-Oct-2018 Active Comments: with food Start: 09-24-2018 Meloxicam 15 m g tablet Active PO 30 September 24, 2018 12:00am Start: 09-21-2018 take 1 tablet by adryan th once daily at mealtime Meloxicam 15 MG Oral Tablet 1 (one) Tablet daily for 0 days Quantity: 30 {Tablet} Refills: 0 Ordered: 21-Sep-2018 Janneth Christensen CNP Start : 21-Sep-2018 Active Comments: with food Comment on above: with food MEDROL (REMI), 4MG (Oral Tabl et) (20 sources) Corticosteroid Start: 07-29-2013 End: 08-14-2013 Start: 07-29-2013 End: 08-14-2013 take 1 tablet by mouth at mealtime MEDROL (REMI), 4MG (Oral Tablet) 1 (one) Tablet Tablet TAD for 0 days Quantity: 1 {Package} Refills: 0 Ordered: 14-Aug-2013 Start : 29-Jul-2013 End : 14-Aug-2013 Inactive Comments: take with food Comment on above: take with food Multivitamin preparation (7 sources) Start: 02-23-2015 End: 03-25-2015 multivitamin 1 d aily Active Multivitamins (20 sources) Start: 02-23-2015 End: 03-25-2015 Start: 02-23-2015 End: 03-25-2015 take 1 capsule by mouth once daily MULTIVITAMINS (Oral Capsule) 1 (one) Capsule daily for 30 days Quantity: 30 {Capsule} Refills: 0 Ordered: 01-Jun-2015 Janneth Christensen CNP Start : 23-Feb-2015 End : 25-Mar-2015 Inactive MULTIVITAMINS (Oral Capsule) (13 sources) Start: 02-23-2015 End: 03-25-2015 take 1 capsule by mouth once daily MULTIVITAMINS (Oral Capsule) 1 (one) Capsule daily for 30 days Quantity: 30 {Capsule} Refills: 0 Ordered: 01-Jun-2015 Janneth Christensen CNP Start : 23-Feb-2015 End : 25-Mar-2015 Inactive nystatin (20 sources) Polyene Antifungal Start: 04-13-2007 End: 06-13-2007 Start: 04-13-2007 End: 06-13-2007 NYSTATIN (External Powder) 1 (one) Powder Twice daily for 0 days Quantity: 45 {Powder} Refills: 3 Ordered: 13-Apr-2007 Kalyani Hernandez RN Start : 13-Apr-2007 End : 13-Jun-2007 Inactive Comments: DISPENSE ONE LARGE BOTTLE Start: 04-13-2007 End: 06-13-2007 NYSTATIN (External Powder) 1 (one) Powder Twice daily for 0 days Quantity: 45 {Powder} Refills: 3 Ordered: 13-Apr-2007 Kalyani Hernandez LPN Start : 13-Apr-2007 End : 13-Jun-2007 Inactive Comments: DISPENSE ONE LARGE BOTTLE Start: 04-13-2007 End: 06-13-2007 NYSTATIN (External Powder) 1 (one) Powder Twice daily for 0 days Quantity: 45 {Powder} Refills: 3 Ordered: 13-Apr-2007 Kalyani Hernandez LPN Start : 13-Apr-2007 End : 13-Jun-2007 Inactive Comments: DISPENSE ONE LARGE BOTTLE Comment on above: DISPENSE ONE LARGE B OTTLE omega-3 fatty acids-fish oil (4 sources) Start: 07-29-2020 oseltamivir 75 mg oral capsu le (20 sources) Neuraminidase Inhibitor Start: 04-26-2016 End: 08-29-2016 polyethylene glycol 3350 170 00 mg powder for oral solution (20 sources) Osmotic Laxative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 Hematocrit (Bld) [Volume fraction] 38.9 % Low 40-54 [facility] Comment on above: Performed By: #### L 502.0250, L506.1001, L501.9520, L400.0001, L100.0100, L500.4100, L500.4050 #### [facility] [address] [place], [address] Hemoglobin (Bld) [Mass/Vol] 13.3 g/dL Normal 13.0-16.5 [facility] Comment on above: Performed By: #### L 502.0250, L506.1001, L501.9520, L400.0001, L100.0100, L500.4100, L500.4050 #### [facility] [address] [place], [address] IG% 0.400 Normal 0.0-0.9 [facility] Comment on above: Result Comment: IG% - Immature Granulocytes (promyelocytes, myelocytes and metamyelocytes) > 1% indicates that a LEFT SHIFT is Present. Performed By: #### L 502.0250, L506.1001, L501.9520, L400.0001, L100.0100, L500.4100, L500.4050 #### [facility] [address] [place], [address] Lymphocytes/100 WBC (Bld) 30.9 % Normal 19-41 [facility] Comment on above: Performed By: #### L 502.0250, L506.1001, L501.9520, L400.0001, L100.0100, L500.4100, L500.4050 #### [facility] [address] [facility] [place], [address] MCH (RBC) [Entitic mass] 32.0 pg Normal 27.0-32.0 [facility] Comment on above: Performed By: #### L 502.0250, L506.1001, L501.9520, L400.0001, L100.0100, L500.4100, L500.4050 #### [facility] [address] [facility] [place], [address] MCHC (RBC) [Mass/Vol] 34.2 g/dL Normal 32-36 [facility] Comment on above: Performed By: #### L 502.0250, L506.1001, L501.9520, L400.0001, L100.0100, L500.4100, L500.4050 #### [facility] [address] [place], [address] MCV (RBC) [Entitic vol] 93.7 fL Normal 80-94 [facility] Comment on above: Performed By: #### L 502.0250, L506.1001, L501.9520, L400.0001, L100.0100, L500.4100, L500.4050 #### [facility] [address] [place], [address] Monocytes/100 WBC (Bld) 9.6 % Normal 0-10 [facility] Comment on above: Performed By: #### L 502.0250, L506.1001, L501.9520, L400.0001, L100.0100, L500.4100, L500.4050 #### [facility] [address] [place], [address] Neutrophils/100 WBC (Bld) 54.5 % Normal 47-70 [facility] Comment on above: Performed By: #### L 502.0250, L506.1001, L501.9520, L400.0001, L100.0100, L500.4100, L500.4050 #### [facility] [address] [place], [address] Nucleated RBC (Bld) [#/Vol] 0 10*3/uL Normal 0-5 [facility] Comment on above: Performed By: #### L 502.0250, L506.1001, L501.9520, L400.0001, L100.0100, L500.4100, L500.4050 #### [facility] [address] [place], [address] Platelet mean volume (Bld) [Entitic vol] 9.1 fL Normal 6.2-12.0 [facility] Comment on above: Performed By: #### L 502.0250, L506.1001, L501.9520, L400.0001, L100.0100, L500.4100, L500.4050 #### [facility] [address] [place], [address] Platelets (Bld) [#/Vol] 340 10*3/uL Normal 150-450 [facility] Comment on above: Performed By: #### L 502.0250, L506.1001, L501.9520, L400.0001, L100.0100, L500.4100, L500.4050 #### [facility] [address] [place], [address] RBC (Bld) [#/Vol] 4.15 10*6/uL Low 4.6-6.2 [facility] Comment on above: Performed By: #### L 502.0250, L506.1001, L501.9520, L400.0001, L100.0100, L500.4100, L500.4050 #### [facility] [address] [place], [address] RDW SD 45.1 fl High 35.1-43.9 [facility] Comment on above: Performed By: #### L 502.0250, L506.1001, L501.9520, L400.0001, L100.0100, L500.4100, L500.4050 #### [facility] [address] [place], [address] WBC (Bld) [#/Vol] 9.2 10*3/uL Normal 4.4-11.0 [facility] Comment on above: Performed By: #### L 502.0250, L506.1001, L501.9520, L400.0001, L100.0100, L500.4100, L500.4050 #### [facility] [address] [place], [address] Calculated very low density lipoprotein (VLDL) cholesterol measurementOrdered By: Brittani Shepherd on 08-20-2024 Calculated very low density lipoprotein (VLDL) cholesterol measurement 18 mg/dL 5-40 [facility] Carbon dioxide, total [Moles /volume] in Central venous bloodOrdered By: Brittani Shepherd on 08-20-2024 CO2 [Moles/Vol] 24.0 mmol/L 21.0-32.0 [facility] Chloride assayOrdered By: Barbara Shepherd on 08-20-2024 Chloride [Moles/Vol] 105 mmol/L 98-108 [facility] Comprehensive Metabolic Prof ilon 08-20-2024 Albumin [Mass/Vol] 4.4 g/dL Normal 3.5-5.0 [facility] Comment on above: Performed By: #### L 502.0250, L506.1001, L501.9520, L400.0001, L100.0100, L500.4100, L500.4050 #### [facility] [address] [place], [address] Albumin/Globulin [Mass ratio] 1.8 {ratio} Normal 0.9-2.4 [facility] Comment on above: Performed By: #### L 502.0250, L506.1001, L501.9520, L400.0001, L100.0100, L500.4100, L500.4050 #### [facility] [address] [place], [address] ALK PHOS 41 U/L Normal 40-129 [facility] Comment on above: Performed By: #### L 502.0250, L506.1001, L501.9520, L400.0001, L100.0100, L500.4100, L500.4050 #### [facility] [address] [place], [address] ALT [Catalytic activity/Vol] 36 U/L Normal <=46 [facility] Comment on above: Performed By: #### L 502.0250, L506.1001, L501.9520, L400.0001, L100.0100, L500.4100, L500.4050 #### [facility] [address] [place], [address] AST [Catalytic activity/Vol] 40 U/L High <=37 [facility] Comment on above: Performed By: #### L 502.0250, L506.1001, L501.9520, L400.0001, L100.0100, L500.4100, L500.4050 #### [facility] [address] [place], [address] Bilirubin [Mass/Vol] 0.18 mg/dL Normal 0.00-1.30 [facility] Comment on above: Performed By: #### L 502.0250, L506.1001, L501.9520, L400.0001, L100.0100, L500.4100, L500.4050 #### [facility] [address] [place], [address] BUN/CRE 19.0 RATIO Normal 10-20 [facility] Comment on above: Performed By: #### L 502.0250, L506.1001, L501.9520, L400.0001, L100.0100, L500.4100, L500.4050 #### [facility] [address] [place], [address] Calcium [Mass/Vol] 9.7 mg/dL Normal 7.6-11.0 [facility] Comment on above: Performed By: #### L 502.0250, L506.1001, L501.9520, L400.0001, L100.0100, L500.4100, L500.4050 #### [facility] [address] [place], [address] Chloride [Moles/Vol] 105 mmol/L Normal 98-108 [facility] Comment on above: Performed By: #### L 502.0250, L506.1001, L501.9520, L400.0001, L100.0100, L500.4100, L500.4050 #### [facility] [address] [place], [address] CO2 [Moles/Vol] 24.0 mmol/L Normal 21.0-32.0 [facility] Comment on above: Performed By: #### L 502.0250, L506.1001, L501.9520, L400.0001, L100.0100, L500.4100, L500.4050 #### [facility] [address] [place], [address] Creatinine [Mass/Vol] 1.18 mg/dL Normal 0.70-1.20 [facility] Comment on above: Performed By: #### L 502.0250, L506.1001, L501.9520, L400.0001, L100.0100, L500.4100, L500.4050 #### [facility] [address] [place], [address] GAP 10 Normal 5-15 [facility] Comment on above: Performed By: #### L 502.0250, L506.1001, L501.9520, L400.0001, L100.0100, L500.4100, L500.4050 #### [facility] [address] [place], [address] GFR/1.73 sq M.predicted among non-blacks MDRD (S/P/Bld) [Vol rate/Area] 72 mL/min/{1.73_m2} Normal >60 [facility] Comment on above: Result Comment: mL/m in/1.73m2 CKD-EPI Creatinine Equation (2020) Performed By: #### L 502.0250, L506.1001, L501.9520, L400.0001, L100.0100, L500.4100, L500.4050 #### [facility] [address] [place], [address] Globulin (S) [Mass/Vol] 2.4 g/dL Normal 2.2-4.2 [facility] Comment on above: Performed By: #### L 502.0250, L506.1001, L501.9520, L400.0001, L100.0100, L500.4100, L500.4050 #### [facility] [address] [place], [address] Glucose [Mass/Vol] 112 mg/dL High 70-99 [facility] Comment on above: Performed By: #### L 502.0250, L506.1001, L501.9520, L400.0001, L100.0100, L500.4100, L500.4050 #### [facility] [address] [place], [address] Potassium [Moles/Vol] 4.1 mmol/L Normal 3.3-5.1 [facility] Comment on above: Performed By: #### L 502.0250, L506.1001, L501.9520, L400.0001, L100.0100, L500.4100, L500.4050 #### [facility] [address] [place], [address] Sodium [Moles/Vol] 140 mmol/L Normal 133-145 [facility] Comment on above: Performed By: #### L 502.0250, L506.1001, L501.9520, L400.0001, L100.0100, L500.4100, L500.4050 #### [facility] [address] [place], [address] T PROT 6.7 g/dL Normal 5.9-8.4 [facility] Comment on above: Performed By: #### L 502.0250, L506.1001, L501.9520, L400.0001, L100.0100, L500.4100, L500.4050 #### [facility] [address] [place], [address] Urea nitrogen [Mass/Vol] 22 mg/dL High 4-19 [facility] Comment on above: Performed By: #### L 502.0250, L506.1001, L501.9520, L400.0001, L100.0100, L500.4100, L500.4050 #### [facility] [address] [place], [place], [id number] Eosinophil percentageOrdered By: Brittani Shepherd on 08-20-2024 Eosinophils/100 WBC (Bld) 4.2 % 0-5 [facility] Erythrocyte distribution wid th ratioOrdered By: Brittani Shepherd on 08-20-2024 Erythrocyte distribution width (RBC) [Ratio] 13.2 % 11.6-14.6 [facility] Erythrocyte distribution wid th standard deviationOrdered By: Brittani Shepherd on 08-20-2024 Erythrocyte distribution width (RBC) [Ratio] 45.1 fl High 35.1-43.9 [facility] Glomerular filtration rate ( GFR) estimation/1.73 sq m using serum, plasma, or whole bOrdered By: Brittani Shepherd on 08-20-2024 GFR/1.73 sq M.predicted among non-blacks MDRD (S/P/Bld) [Vol rate/Area] 72 mL/min/{1.73_m2} >60 [facility] Comment on above: mL/min/1.73m2 CKD-EP I Creatinine Equation (2020) Hematocrit Auto (Bld) [Volum e fraction]Ordered By: Brittani Shepherd on 08-20-2024 Hematocrit (Bld) [Volume fraction] 38.9 % Low 40-54 [facility] Hemoglobin measurementOrdere d By: Brittani Shepherd on 08-20-2024 Hemoglobin (Bld) [Mass/Vol] 13.3 g/dL 13.0-16.5 [facility] Immature granulocytes/100 WB C Auto (Bld)Ordered By: Brittani Shepherd on 08-20-2024 Immature granulocytes/100 WBC (Bld) 0.400 % 0.0-0.9 [facility] Comment on above: IG% - Immature Granu locytes (promyelocytes, myelocytes and metamyelocytes) > 1% indicates that a LEFT SHIFT is Present. Ketones Test strip Ql (U)Ord ered By: Brittani Shepherd on 08-20-2024 Ketones Ql (U) Negative Negative [facility] LDL calc ser/plasOrdered By: Brittani Shepherd on 08-20-2024 Cholesterol in LDL [Mass/Vol] 64 mg/dL [facility] Comment on above: Mybfvomoml=802-974 m g/dL & Higher Itqh=643 mg/dL or greater Laboratory - Chemistry and C hemistry - challengeOrdered By: Brittani Shepherd on 08-20-2024 AST [Catalytic activity/Vol] 40 U/L High <38 [facility] Lipid Profileon 08-20-2024 CHOL:HDL 3.19 Normal [facility] Comment on above: Performed By: #### L 502.0250, L506.1001, L501.9520, L400.0001, L100.0100, L500.4100, L500.4050 #### [facility] [address] [place], [address] Cholesterol [Mass/Vol] 120 mg/dL Normal <=200 [facility] Comment on above: Result Comment: Chol esterol level, Desirable <200 mg/dL Borderline high cholesterol 200-239 mg/dL High cholesterol >=240 mg/dL Recommendations of the NCEP Adult Treatment Panel for the following risk-cutoff thresholds for the [place] population. Performed By: #### L 502.0250, L506.1001, L501.9520, L400.0001, L100.0100, L500.4100, L500.4050 #### [facility] [address] [place], [address] Cholesterol in HDL [Mass/Vol] 38 mg/dL Low [facility] Comment on above: Result Comment: Mildred onal Cholesterol Education Program (NCEP) guidelines: <40 mg/dL: Low HDL-cholesterol (major risk factor for CHD) >= 60 mg/dL: High HDL-cholesterol (negative risk factor for CHD) HDL-cholesterol is affected by a number of factors, e.g. smoking, exercise, hormones, sex and age. Performed By: #### L 502.0250, L506.1001, L501.9520, L400.0001, L100.0100, L500.4100, L500.4050 #### [facility] [address] [place], [address] Cholesterol in LDL [Mass/Vol] 64 mg/dL Normal [facility] Comment on above: Result Comment: Bord dynbct=117-160 mg/dL Higher Jnnn=813 mg/dL or greater Performed By: #### L 502.0250, L506.1001, L501.9520, L400.0001, L100.0100, L500.4100, L500.4050 #### [facility] [address] [place], [address] Cholesterol in VLDL [Mass/Vol] 18 mg/dL Normal 5-40 [facility] Comment on above: Performed By: #### L 502.0250, L506.1001, L501.9520, L400.0001, L100.0100, L500.4100, L500.4050 #### [facility] [address] [place], [address] Triglyceride [Mass/Vol] 92 mg/dL Normal [facility] Comment on above: Result Comment: The drugs N-Acetylcysteine and Metamizole may falsely depress this assay. Normal range: <150 mg/dL Borderline High: 150-199 mg/dL High: 200-499 mg/dL Very High: >500 mg/dL Performed By: #### L 502.0250, L506.1001, L501.9520, L400.0001, L100.0100, L500.4100, L500.4050 #### [facility] [address] [place], [address] MCV (mean corpuscular volume ) determinationOrdered By: Brittani Shepherd on 08-20-2024 MCV (RBC) [Entitic vol] 93.7 fL 80-94 [facility] Mean corpuscular hemoglobin (MCH) determinationOrdered By: Brittani Shepherd on 08-20-2024 MCH (RBC) [Entitic mass] 32.0 pg 27.0-32.0 [facility] Mean corpuscular hemoglobin concentration (MCHC) determinationOrdered By: Brittani Shepherd on 08-20-2024 MCHC (RBC) [Mass/Vol] 34.2 g/dL 32-36 [facility] Mean platelet volume determi nationOrdered By: Brittani Shepherd on 08-20-2024 Platelet mean volume (Bld) [Entitic vol] 9.1 fL 6.2-12.0 [facility] Microalb:Creat Ratio,Random URon 08-20-2024 Creatinine [Mass/Vol] 92.40 mg/dL Normal 39.00- 259.0 0 [facility] Comment on above: Performed By: #### L 502.0250, L506.1001, L501.9520, L400.0001, L100.0100, L500.4100, L500.4050 #### [facility] [address] [place], [address] MALB:CREAT UNABLE TO CALCULATE Normal [facility] Comment on above: Performed By: #### L 502.0250, L506.1001, L501.9520, L400.0001, L100.0100, L500.4100, L500.4050 #### [facility] [address] [place], [address] MICROALBUMIN,UR < 12.0 Normal NO RANGE EST. [facility] Comment on above: Performed By: #### L 502.0250, L506.1001, L501.9520, L400.0001, L100.0100, L500.4100, L500.4050 #### [facility] [address] [place], [address] Microalbumin/creat ratio urO rdered By: Brittani Shepherd on 08-20-2024 Urine microalbumin/creatinin e ratio measurement UNABLE TO CALCULATE mg/g CRE [facility] Microscopic analysis of urin e for red blood cells (RBC)Ordered By: Brittani Shepherd on 08-20-2024 Microscopic analysis of urine for red blood cells (RBC) 0 SEEN /hpf 0-5 [facility] Monocyte percentageOrdered B y: Brittani Shepherd on 08-20-2024 Monocytes/100 WBC (Bld) 9.6 % 0-10 [facility] Mucus LM Ql (Urine sed)Order ed By: Brittani Shepherd on 08-20-2024 Mucus Ql (Urine sed) 0 SEEN /hpf [facility] Neutrophil percentageOrdered By: Brittani Shepherd on 08-20-2024 Neutrophils/100 WBC (Bld) 54.5 % 47-70 [facility] Nitrite Test strip Ql (U)Ord ered By: Brittnai Shepherd on 08-20-2024 Nitrite Ql (U) Negative Negative [facility] Nucleated red blood cell per centageOrdered By: Brittani Shepherd on 08-20-2024 Nucleated RBC/100 WBC (Bld) [Ratio] 0 % 0-5 [facility] Platelet countOrdered By: Barbara Shepherd on 08-20-2024 Platelets (Bld) [#/Vol] 340 10*3/uL 150-450 [facility] Potassium measurement (mass/ volume)Ordered By: Brittani Shepherd on 08-20-2024 Potassium (Unsp spec) [Mass/Vol] 4.1 mmol/L 3.3-5.1 [facility] Protein Test strip Ql (U)Ord ered By: Brittani Shepherd on 08-20-2024 Protein Ql (U) 15 mg/dl High Negative [facility] RBC Auto (Bld) [#/Vol]Ordere d By: Brittani Shepherd on 08-20-2024 RBC (Bld) [#/Vol] 4.15 10*6/uL Low 4.6-6.2 [facility] Random urine creatinine ryley urement (mass/volume)Ordered By: Brittani Shepherd on 08-20-2024 Creatinine Unsp time (U) [Mass/Vol] 92.40 mg/dL 39.00-259.0 0 [facility] Screening total cholesterol/ high density lipoprotein (HDL) cholesterol ratioOrdered By: Brittani Shepherd on 08-20-2024 Cholesterol.total/Chol esterol in HDL [Mass ratio] 3.19 {ratio} [facility] Serum creatinine measurement (mass/volume)Ordered By: Brittani Shepherd on 08-20-2024 Creatinine [Mass/Vol] 1.18 mg/dL 0.70-1.20 [facility] Serum globulin measurementOr dered By: Brittani Shepherd on 08-20-2024 Globulin (S) [Mass/Vol] 2.4 g/dL 2.2-4.2 [facility] Serum glucose measurement (m ass/volume)Ordered By: Brittani Shepherd on 08-20-2024 Glucose [Mass/Vol] 112 mg/dL High 70-99 [facility] Serum or plasma alanine dobson otransferase (ALT) measurementOrdered By: Brittani Shepherd on 08-20-2024 ALT [Catalytic activity/Vol] 36 U/L <47 [facility] Serum or plasma albumin ryley urement (mass/volume)Ordered By: Brittani Shepherd on 08-20-2024 Albumin [Mass/Vol] 4.4 g/dL 3.5-5.0 [facility] Serum or plasma albumin/glob ulin mass ratioOrdered By: Brittani Shepherd on 08-20-2024 Albumin/Globulin [Mass ratio] 1.8 {ratio} 0.9-2.4 [facility] Serum or plasma alkaline odilon sphatase measurementOrdered By: Brittani Shepherd on 08-20-2024 ALP [Catalytic activity/Vol] 41 U/L 40-129 [facility] Serum or plasma calcium ryley urement (mass/volume)Ordered By: Brittani Shepherd on 08-20-2024 Calcium [Mass/Vol] 9.7 mg/dL 7.6-11.0 [facility] Serum or plasma cholesterol in HDL measurement (mass/volume)Ordered By: Brittani Shepherd on 08-20-2024 Cholesterol in HDL [Mass/Vol] 38 mg/dL Low >40 [facility] Comment on above: National Cholesterol Education Program (NCEP) guidelines:<40 mg/dL: Low HDL-cholesterol (major risk factor for CHD)>= 60 mg/dL: High HDL-cholesterol (negative risk factor for CHD)HDL-cholesterol is affected by a number of factors, e.g. smoking, exercise, hormones, sex and age. Serum or plasma cholesterol measurement (mass/volume)Ordered By: Brittani Shepherd on 08-20-2024 Cholesterol [Mass/Vol] 120 mg/dL <201 [facility] Comment on above: Cholesterol level, D esirable <200 mg/dLBorderline high cholesterol 200-239 mg/dLHigh cholesterol >=240 mg/dLRecommendations of the NCEP Adult Treatment Panel for the following risk-cutoff thresholds for the [place] population. Serum or plasma urea nitroge n measurement (mass/volume)Ordered By: Brittani Shepherd on 08-20-2024 Urea nitrogen [Mass/Vol] 22 mg/dL High 4-19 [facility] Sodium levelOrdered By: Tara Shepherd on 08-20-2024 Sodium [Moles/Vol] 140 mmol/L 133-145 [facility] Squamous epithelial cells de tection in urine sediment by light microscopyOrdered By: Brittani Shepherd on 08-20-2024 Epithelial cells.squamous LM Ql (Urine sed) 0 SEEN /hpf 0-5 [facility] TSH DL <= 0.005 mIU/L QnOrde red By: Brittani Shepherd on 08-20-2024 TSH Qn 3.110 uIU/mL 0.300-4.200 [facility] Thyroid Stim Hormone (TSH)on 08-20-2024 TSH 3.110 uIU/mL Normal 0.300-4.200 [facility] Comment on above: Performed By: #### L 502.0250, L506.1001, L501.9520, L400.0001, L100.0100, L500.4100, L500.4050 #### [facility] [address] [place], [address] Total proteinOrdered By: Karon Shepherd on 08-20-2024 Protein [Mass/Vol] 6.7 g/dL 5.9-8.4 [facility] Triglycerides measurementOrd ered By: Brittani Shepherd on 08-20-2024 Triglyceride [Mass/Vol] 92 mg/dL <199 [facility] Comment on above: The drugs N-Acetylcy steine and Metamizole may falsely depress this assay. Normal range: <150 mg/dLBorderline High: 150-199 mg/dLHigh: 200-499 mg/dLVery High: >500 mg/dL Urinalysis, Completeon 08-20 AMORPHOUS 2+ PHOS Normal [facility] Comment on above: Order Comment: Urine , Random Performed By: #### L 502.0250, L506.1001, L501.9520, L400.0001, L100.0100, L500.4100, L500.4050 #### [facility] [address] [place], [address] BACTERIA 0 SEEN Normal None Seen [facility] Comment on above: Order Comment: Urine , Random Performed By: #### L 502.0250, L506.1001, L501.9520, L400.0001, L100.0100, L500.4100, L500.4050 #### [facility] [address] [place], [address] EPI,SQUAMOUS 0 SEEN Normal 0-5 [facility] Comment on above: Order Comment: Urine , Random Performed By: #### L 502.0250, L506.1001, L501.9520, L400.0001, L100.0100, L500.4100, L500.4050 #### [facility] [address] [place], [address] Mucus Ql (Urine sed) 0 SEEN Normal [facility] Comment on above: Order Comment: Urine , Random Performed By: #### L 502.0250, L506.1001, L501.9520, L400.0001, L100.0100, L500.4100, L500.4050 #### [facility] [address] [place], [address] RBC 0 SEEN Normal 0-5 [facility] Comment on above: Order Comment: Urine , Random Performed By: #### L 502.0250, L506.1001, L501.9520, L400.0001, L100.0100, L500.4100, L500.4050 #### [facility] [address] [place], [place], [id number] WBC 0 SEEN Normal 0-5 [facility] Comment on above: Order Comment: Urine , Random Performed By: #### L 502.0250, L506.1001, L501.9520, L400.0001, L100.0100, L500.4100, L500.4050 #### [facility] [address] [place], [place], [id number] Urine albumin measurement wi detection limit of 20 mg/L or less (mass/volume)Ordered By: Brittani Shepherd on 08-20-2024 Albumin DL <= 20 mg/L (U) [Mass/Vol] < 12.0 mg/L NO RANGE EST. [facility] Urine clarityOrdered By: Karon Shepherd on 08-20-2024 Clarity (U) Sl. Cloudy Clear [facility] Urine color determinationOrd ered By: Brittani Shepherd on 08-20-2024 Color (U) Yellow Yellow [facility] Urine glucose detectionOrder ed By: Brittani Shepherd on 08-20-2024 Glucose Ql (U) Normal mg/dl Normal [facility] Urine leukocyte esterase det ection by dipstickOrdered By: Brittani Shepherd on 08-20-2024 Leukocyte esterase Test strip Ql (U) Negative Negative [facility] Urine pHOrdered By: Brittani Shepherd on 08-20-2024 pH (U) 8.0 [pH] 5.0 - 8.0 [facility] Urine sediment bacteria coun t by microscopy (number/high power field)Ordered By: Brittani Shepherd on 08-20-2024 Bacteria LM.HPF (Urine sed) [#/Area] 0 /[HPF] None Seen [facility] Urine specific gravity measu rementOrdered By: Brittani Shepherd on 08-20-2024 Specific gravity (U) [Rel density] 1.010 1.002-1.030 [facility] Urine urobilinogen measureme ntOrdered By: Brittani Shepherd on 08-20-2024 Urobilinogen Ql (U) Normal mg/dl Normal [facility] Vitamin D,25 Hydroxyon 08-20 Vitamin D 25-OH 54.4 ng/mL Normal 30-100 [facility] Comment on above: Result Comment: Emily min D Status Deficiency: <20 ng/mL (50nmol/L) Insufficiency: 20-30 ng/mL (50-75 nmol/L) Sufficiency: 30-100 ng/mL (75-250 nmol/L) Toxicity: >100 ng/mL (>250 nmol/L) Performed By: #### L 502.0250, L506.1001, L501.9520, L400.0001, L100.0100, L500.4100, L500.4050 #### [facility] [address] [place], [address] White blood cell (WBC) count Ordered By: Brittani Shepherd on 08-20-2024 WBC (Bld) [#/Vol] 9.2 10*3/uL 4.4-11.0 [facility] White blood cell countOrdere d By: Brittani Shepherd on 08-20-2024 White blood cell count 0 SEEN /hpf 0-5 [facility] Chest PA and Lateralon 06-25 Chest PA and Lateral [facility] Imaging Services [address] [place], [place] [address] Chest PA and Lateral MR#: [id number] Acct: [id number] Name: PRADEEP VARGAS Rep #: [id number] : 1965 M 58 From: Johnnie Schmitt MD PCP: Dr. Brittani Shepherd, DO Status: DEP AMB Study: Chest PA and Lateral Date of Exam: 06/25/24 Exam# [id number] Ordering Dr: Coco Mendiola SPECIAL EFFECTS DESIGNER-C EXAM: XR Chest, 2 Views CLINICAL INDICATION: FLU LIKE SYMPTOMS TECHNIQUE: Frontal and lateral views of the chest. COMPARISON: No relevant prior studies available. FINDINGS: LUNGS AND PLEURAL SPACES: Unremarkable. No consolidation. No pneumothorax. HEART: Unremarkable. No cardiomegaly. MEDIASTINUM: Unremarkable. Normal mediastinal contour. BONES/JOINTS: Unremarkable. No acute fracture. RAD/Chest PA and Lateral IMPRESSION: No acute cardiopulmonary process. Reading Location: [facility] CC: JUAN CARLOS Mendiola; Dr. Brittani Shepherd DO Shoulder Sawyer: Signed Normal [facility] Sinus/Facial Boneon 05-15-19 Sinus/Facial Bone [facility] Imaging Services [address] [place], [place] [address] Sinus/Facial Bone MR#: [id number] Acct: [id number] Name: PRADEEP VARGAS Rep #: [id number] : 1965 M 58 From: Lucien Steve MD PCP: Dr. Brittani Shepherd DO Status: REG CLI Study: Sinus/Facial Bone Date of Exam: 05/15/24 Exam# [id number] Ordering Dr: Dago Antony MD PROCEDURE: CT SINUS/FACIAL BONES REASON FOR EXAM: DENTAL PAIN. TECHNIQUE: Contiguous axial scans of 1.25 mm slice thicknesses with sagittal and coronal reconstruction images. One or more dose reduction techniques were utilized (e.g., automated exposure control, adjustment of mA and/or kv according to patient size, use of iterative reconstruction technique). COMPARISON: None. FINDINGS: Frontal: Mild mucoperiosteal thickening. Ethmoid: Mild mucoperiosteal thickening Sphenoid: Small air-fluid level in the left sphenoid sinus. Maxillary: A 2.2 x 1.7 x 2.1 cm cystic mass involving the anterior aspect of the right maxilla with erosion into the floor of the sinus and medial extension to the nasal septum. Turbinates: Unremarkable. Nasal Septum: Mild erosive change along the right side of the septum. Mastoids/Middle Ears: Clear at visualized levels. Visualized intracranial structures are unremarkable. No suspicious contrast enhancement. CT/Sinus/Facial Bone IMPRESSION: 1. Well-circumscribed cystic mass involving the right maxilla is concerning for odontogenic cyst. Erosive change involving the floor of the right maxillary sinus and right side of the nasal septum. 2. Mild inflammatory changes involving the paranasal sinuses. Reading Location: [facility] CC: Dr. Dago Antony MD; Dr. Brittani Shepherd DO Shoulder Sawyer: Signed Normal [facility] Low Dose CT Lung Screeningon 12-14-[address] Lung Screening [facility] Imaging Services [address] [place] [address] Lung Screening MR#: [id number] Acct: [id number] Name: PRADEEP VARGAS Rep #: [id number] : 1965 M 58 From: Bradley downing MD PCP: Dr. Brittani Shepherd DO Status: REG CLI Study: Low Dose CT Lung Screening Date of Exam: 12/13 Exam# [id number] Ordering Dr: [place] [id number] STUDY: LOW DOSE CT LUNG CANCER SCREENING REASON FOR EXAM: Male, 58 years old. - Smoker. Patient smokes 1 pack per day for 30 years. RADIATION DOSAGE (If Supplied By Facility): CTDIvol = ( 2.39 ) mGy, DLP = ( 82.80 ) mGycm TECHNIQUE: No contrast was administered. Low dose technique was utilized (average mAS-38 and kVp 120). 1.25 mm axial source images with a slice interval of 1.25-mm were reconstructed in lung windows. 2.5 mm axial source images with a slice interval of 2.5-mm were reconstructed in lung windows. 5.0 mm axial source images with a slice interval of 5.0-mm were reconstructed in soft tissue windows. COMPARISON: None. NODULES: No suspicious nodules are seen. Emphysema: Hyperinflation. Mild degree of emphysematous changes. Endobronchial lesion: None Aorta: Minimal atherosclerotic calcific plaques. CORONARY ARTERIES: Coronary artery calcification minimal coronary artery calcification. Heart: Unremarkable Pulmonary artery: Unremarkable Mediastinal nodes: Small mediastinal lymph nodes. Other chest and abdominal findings: CT/Low Dose CT Lung Screening IMPRESSION: Lung-RADS category 2 - Continue annual screening with LDCT in 12 months. IMPORTANT NOTES FOR USE: ACR Lung-RADS Version 1.1 Assessment Categories Release Date: 2018 Category: Coded 0-4 bases on nodule(s) with highest degree of suspicion. Negative screen is defined as categories 1 and 2; a positive screen is defined as categories 3 and 4. Category 3 and 4A nodules that are unchanged on interval CT should be coded as category 2, and individuals returned to screening in 12 months. Category 4X: Category 3 or 4 nodules with additional imaging findings that increase the suspicion of lung cancer, such as spiculation, GGN that doubles in size in 1 year, enlarged lymph notes, etc. Category Modifiers: S (significant finding unrelated to lung cancer) Electronically Signed: Bradley Dias MD at 10:11 EDT Reading Location ID and State: [address] [place] [address] , Service support , CC: Dr. Brittani Shepherd DO Shoulder Sawyer: Signed Normal [facility] Inital Evaluation (1) - PTon 11-22-2023 Inital Evaluation (1) - PT [facility] Physical Therapy [facility] [address] [place] [address] / REHABILITATION SERVICES INITIAL EVALUATION MR#: [id number] Acct: [id number] Name: PRADEEP VARGAS Rep #: [id number] : 1965 58 From: Shari BARFIELD Referring Dr.: Dr. Brittani Shepherd DO Status: REG RCR Insurance: [employer] SELF PAY INSURANCE Patient's Visit Information Visit Information Visit Information: PRADEEP VARGAS is a 58 year old M referred to Physical Therapy by Dr. Brittani Shepherd DO with a diagnosis of Cervical Radiculopathy. Date of Evaluation: 11/22/23 Physical Therapist: CAROLYNE Henry Visit Plan Frequency: 1x/Week Duration: 4 Weeks Plan: 1X/ week (very high co-pay) for neck retraction and extension exercises, some manual to the knot on the R sided levator/mid trap if painful and if pt tolerates it, postural exercise with HEP each visit due to high co-pay HEP: neck towel extension and using a tennis ball to work out the knot at mid trap/levator Subjective Subjective: Pt reports that about a month ago he was doing a lot of repetitive stuff and feels pain on R shoulder blade and feels like he has a marble that is bothering him. It hurts a lot when he sleeps a lot with his arm abducted at 90 degrees on his stomach and his neck is turned to the R side and causes the shoulder blade pain. He has persistent mild R shoulder blade pain all day. He had prednisone and can still feels the pain. The Dr touched a certain spot and he wanted to jump. He is R handed. He has N T when he is sleeping or if he is doing a lot of repetitive with small nuts and bolts he may have some tingling. Pain Neck pain: Pain Intensity (Out of 10): 0 R shoulder blade pain: Pain Intensity (Out of 10): 3 Objective Objective: Posture: sits with good posture Pt is R handed: R 80# and L 80# palpation: very tender (knots felt) at R levator and R mid trap Bicep DTR: B 2+/3 C-spine AROM: flexion 100%, Ext 50%, R Rot 80% and L 75%, SB B 25% ( no pain but just stretching) UE AROM: AROM B shoulders WFL (tight at end range flexion) UE MMT: R Shoulder Flexion 10.7 and L 13.2 R shoulder ABD 13.2 and L 12.7 R shoulder ER 18.2 and L 19.4 pt had no pain with thoracic mobs Pt able to do X 10 chin tuck in supine without any pain Pt had no pain with lat stretching Sitting neck extension with a towel 3 X 10 )at the end of the third set his R arm started to tingle. We held the towel with just his L hand and he was able to do 2 X 10 more sets of neck towel extensions with no R handed N T. Pt felt no pain and looser walking out of the clinic Balance/Special Test Scores Oswestry Neck Score: 6 Goals Goal 1:: I HEP Goal Time Frame: 4-6 Weeks Goal 2:: Improved neck ROM (at the time of the eval: C-spine AROM: flexion 100%, Ext 50%, R Rot 80% and L 75%, SB B 25% ( no pain but just stretching) Goal Time Frame: 4-6 Weeks Goal 3:: Abolish the R shoulder blade pain Goal Time Frame: 4-6 Weeks Rehabilitation Potential Rehabilitation Potential: Good Anticipated Interventions Patient/Client Instruction: Educate patient on: Condition and Plan of Care For the Purpose of:: To decrease pain, To increase ROM, To improve nutrient delivery to tissue, To improve muscle performance and motor function, To improve ability to perform ADL's, To improve ability of physical actions for home/community/work/lei sure, To improve health of tissue, To decrease soft tissue restriction and To increase flexibility/ROM Therapeutic Exercise to Include: Strength training, Postural training, Flexibilty training, Neuromotor development, Passive ROM, Active ROM and Ben Exercises For the Purpose of:: To decrease pain, To increase ROM, To improve nutrient delivery to tissue, To improve muscle performance and motor function, To improve health of tissue, To decrease soft tissue restriction and To increase flexibility/ROM Manual Therapy Techniques to Include: Passive ROM and Soft tissue mobilization For the Purpose of:: To decrease pain, To increase ROM, To improve nutrient delivery to tissue, To improve muscle performance and motor function, To improve health of tissue, To decrease soft tissue restriction and To increase flexibility/ROM Text: Thank you for the opportunity to evaluate your patient. For Medicare and Medicare HMO plans, please review the plan of care and approve it. It will need to be FAXED BACK to us at [phone] for Medicare purposes. For Medicare only, by signing this I certify the plan of care. Please let me know if there are questions or concerns regarding this plan of care. Physician Signature: Date: 11/22/23 1824 CC: Dr. Brittani Shepherd DO Signed Normal [facility] Blood Glucose , Office ([phone])Ordered By: Rayne Emmanuel on 08-22-2022 Glucose Glucometer (BldC) [Moles/Vol] 90 1 Normal [facility] Work Phone: HgA1C , Office ([phone])Ordere d By: Rayne Emmanuel on 08-22-2022 HbA1c (Bld) [Mass fraction] 6.1 % Normal 4.6 - 7.1 [facility]; [facility] Work Phone: CALCIFEDIOL ([phone])Ordered B y: .Net Developer on 08-30-2021 25-hydroxyvitamin D [Mass/Vol] 35.0 ng/mL Normal 30.0-100.0 [facility]; [facility] Work Phone: CBC W/AUTO DIFF WBC ([phone])O rdered By: .Net Developer on 08-30-2021 Basophils (Bld) [#/Vol] 0.0 10*3/uL Normal 0.0-0.2 [facility]; [facility] Work Phone: Basophils/100 WBC (Bld) 0 % Normal [facility]; [facility] Work Phone: Eosinophils (Bld) [#/Vol] 0.2 10*3/uL Normal 0.0-0.4 [facility]; [facility] Work Phone: Eosinophils/100 WBC (Bld) 3 % Normal [facility]; [facility] Work Phone: Erythrocyte distribution width (RBC) [Ratio] 12.7 % Normal 11.6-15.4 [facility]; [facility] Work Phone: Hematocrit (Bld) [Volume fraction] 41.6 % Normal 37.5-51.0 [facility]; [facility] Work Phone: Hemoglobin (Bld) [Mass/Vol] 14.7 g/dL Normal 13.0-17.7 [facility]; [facility] Work Phone: Immature granulocytes (Bld) [#/Vol] 0.0 10*3/uL Normal 0.0-0.1 [facility]; [facility] Work Phone: Immature granulocytes/100 WBC (Bld) 0 % Normal [facility]; [facility] Work Phone: Lymphocytes (Bld) [#/Vol] 3.0 10*3/uL Normal 0.7-3.1 [facility]; [facility] Work Phone: Lymphocytes/100 WBC (Bld) 32 % Normal [facility]; [facility] Work Phone: MCH (RBC) [Entitic mass] 32.7 pg Normal 26.6-33.0 [facility]; [facility] Work Phone: MCHC (RBC) [Mass/Vol] 35.3 g/dL Normal 31.5-35.7 [facility] prehensive [facility]; [facility] Work Phone: MCV (RBC) [Entitic vol] 93 fL Normal 79-97 [facility]; [facility] Work Phone: Monocytes (Bld) [#/Vol] 0.7 10*3/uL Normal 0.1-0.9 [facility]; [facility] Work Phone: Monocytes/100 WBC (Bld) 7 % Normal [facility]; [facility] Work Phone: Neutrophils (Bld) [#/Vol] 5.3 10*3/uL Normal 1.4-7.0 [facility]; [facility] Work Phone: Neutrophils/100 WBC (Bld) 58 % Normal [facility]; [facility] Work Phone: Platelets (Bld) [#/Vol] 312 10*3/uL Normal 150-450 [facility]; [facility] Work Phone: RBC (Bld) [#/Vol] 4.49 10*6/uL Normal 4.14-5.80 [facility] ehensive [facility]; [facility] Work Phone: WBC (Bld) [#/Vol] 9.3 10*3/uL Normal 3.4-10.8 Compre hens[facility]; [facility] Work Phone: LIPID PANEL ([phone])Ordered B y: .Net Developer on 08-30-2021 Cholesterol [Mass/Vol] 198 mg/dL Normal 100-199 [facility]; [facility] Work Phone: Cholesterol in HDL [Mass/Vol] 32 mg/dL Abnormal [facility]; [facility] Work Phone: Triglyceride [Mass/Vol] 236 mg/dL Abnormal 0-149 [facility]; [facility] Work Phone: LIPID PANEL ([id number]) 42 mg/dL Abnormal 5-40 [facility]; [facility] Work Phone: LIPID PANEL ([id number]) 124 mg/dL Abnormal 0-99 [facility]; [facility] Work Phone: LIPID PANEL ([id number]) 3.9 {ratio} Abnormal 0.0-3.6 [facility]; [facility] Work Phone: METABOLIC PANEL, COMPREHENSI VE ([phone])Ordered By: .Net Developer on 08-30-2021 Albumin [Mass/Vol] 4.3 g/dL Normal 3.8-4.9 [facility]; [facility] Work Phone: Albumin/Globulin [Mass ratio] 2.2 {ratio} Normal 1.2-2.2 [facility]; [facility] Work Phone: ALP [Catalytic activity/Vol] 71 U/L Normal 44-121 [facility]; [facility] Work Phone: ALT [Catalytic activity/Vol] 37 U/L Normal 0-44 [facility]; [facility] Work Phone: AST [Catalytic activity/Vol] 27 U/L Normal 0-40 [facility]; [facility] Work Phone: Bilirubin [Mass/Vol] 0.3 mg/dL Normal 0.0-1.2 [facility]; [facility] Work Phone: Calcium [Mass/Vol] 9.4 mg/dL Normal 8.7-10.2 [facility]; [facility] Work Phone: Chloride [Moles/Vol] 103 mmol/L Normal 96-106 [facility] rehensive [facility]; [facility] Work Phone: CO2 [Moles/Vol] 20 mmol/L Normal 20-29 [facility]; [facility] Work Phone: Creatinine [Mass/Vol] 1.05 mg/dL Normal 0.76-1.27 [facility] prehensive [facility]; [facility] Work Phone: Globulin (S) [Mass/Vol] 2.0 g/dL Normal 1.5-4.5 [facility]; [facility] Work Phone: Glucose [Mass/Vol] 120 mg/dL Abnormal 65-99 [facility]; [facility] Work Phone: Potassium [Moles/Vol] 4.0 mmol/L Normal 3.5-5.2 [facility] prehensive [facility]; [facility] Work Phone: Protein [Mass/Vol] 6.3 g/dL Normal 6.0-8.5 [facility]; [facility] Work Phone: Sodium [Moles/Vol] 138 mmol/L Normal 134-144 [facility]; [facility] Work Phone: Urea nitrogen [Mass/Vol] 14 mg/dL Normal 6-24 [facility]; [facility] Work Phone: Urea nitrogen/Creatinine [Mass ratio] 13 mg/mg Normal 9-20 [facility]; [facility] Work Phone: METABOLIC PANEL, COMPREHENSIVE ([phone]) 84 mL/min/1.73 Normal [facility]; [facility] Work Phone: MICROALBUMINOrdered By: Syst em Welcome Desk Agent on 08-30-2021 Albumin DL <= 20 mg/L (U) [Mass/Vol] 6.0 ug/mL Normal [facility]; [facility] Work Phone: Albumin/Creatinine (U) [Mass ratio] 4 {mg/g_creat} Normal 0-29 [facility]; [facility] Work Phone: Creatinine (U) [Mass/Vol] 167.3 mg/dL Normal [facility]; [facility] Work Phone: PSA (PROSTATE SPECIFIC ANTIG EN) (V76.44)Ordered By: .Net Developer on 08-30-2021 Prostate specific Ag [Mass/Vol] 0.9 ng/mL Normal 0.0-4.0 [facility]; [facility] Work Phone: TSH ([phone])Ordered By: [employer] Sciences[employer] m Welcome Desk Agent on 08-30-2021 TSH Qn 3.080 {uIU/mL} Normal 0.450-4.500 Comprehen sive [facility]; [facility] Work Phone: URINALYSIS, W/ MICRO ([phone]) Ordered By: .Net Developer on 08-30-2021 Appearance (U) Clear Normal Comprehens [facility]; [facility] Work Phone: Bilirubin Ql (U) Negative Normal Comprehe nsive [facility]; [facility] Work Phone: Color (U) Yellow Normal [facility]; [facility] Work Phone: Glucose Ql (U) Negative Normal Comprehens [facility]; [facility] Work Phone: Hemoglobin Ql (U) Negative Normal Compreh ensive [facility]; [facility] Work Phone: Ketones Ql (U) Negative Normal Comprehens [facility]; [facility] Work Phone: Leukocyte esterase Test strip Ql (U) Negative Normal [facility]; [facility] Work Phone: Microscopic observation LM Nom (Urine sed) MICRON Normal [facility]; [facility] Work Phone: Microscopic observation LM Nom (Urine sed) See below: Normal [facility]; [facility] Work Phone: Nitrite Ql (U) Negative Normal Comprehens [facility]; [facility] Work Phone: pH (U) 5.5 [pH] Normal 5.0-7.5 [facility]; [facility] Work Phone: Protein Ql (U) Negative Normal Comprehens [facility]; [facility] Work Phone: Specific gravity (U) [Rel density] 1.020 1 Normal 1.005-1.030 [facility]; [facility] Work Phone: Urobilinogen (U) [Mass/Vol] 0.2 mg/dL Normal 0.2-1.0 [facility]; [facility] Work Phone: Blood Glucose , Office ([phone])Ordered By: Crystal Cruz on 08-02-2021 Glucose Glucometer (BldC) [Moles/Vol] 114 1 Normal [facility]; [facility] Work Phone: HgA1C , Office ([phone])Ordere d By: Crystal Cruz on 08-02-2021 HbA1c (Bld) [Mass fraction] 6.0 % Normal 4.6 - 7.1 [facility]; [facility] Work Phone: CALCIFIDIOL ([phone]) VIT D 25 Ordered By: .Net Developer on 08-05-2020 25-hydroxyvitamin D [Mass/Vol] 33.3 ng/mL Normal 30.0-100.0 [facility]; [facility] Work Phone: CBC W/AUTO DIFF WBC ([phone])O rdered By: .Net Developer on 08-05-2020 Basophils (Bld) [#/Vol] 0.1 10*3/uL Normal 0.0-0.2 [facility]; [facility] Work Phone: Basophils/100 WBC (Bld) 0 % Normal [facility]; [facility] Work Phone: Eosinophils (Bld) [#/Vol] 0.3 10*3/uL Normal 0.0-0.4 [facility]; [facility] Work Phone: Eosinophils/100 WBC (Bld) 2 % Normal [facility]; [facility] Work Phone: Erythrocyte distribution width (RBC) [Ratio] 12.7 % Normal 11.6-15.4 [facility]; [facility] Work Phone: Hematocrit (Bld) [Volume fraction] 41.9 % Normal 37.5-51.0 [facility]; [facility] Work Phone: Hemoglobin (Bld) [Mass/Vol] 14.7 g/dL Normal 13.0-17.7 [facility]; [facility] Work Phone: Immature granulocytes (Bld) [#/Vol] 0.1 10*3/uL Normal 0.0-0.1 [facility]; [facility] Work Phone: Immature granulocytes/100 WBC (Bld) 1 % Normal [facility]; [facility] Work Phone: Lymphocytes (Bld) [#/Vol] 4.6 10*3/uL Abnormal 0.7-3.1 [facility]; [facility] Work Phone: Lymphocytes/100 WBC (Bld) 33 % Normal [facility]; [facility] Work Phone: MCH (RBC) [Entitic mass] 32.7 pg Normal 26.6-33.0 [facility]; [facility] Work Phone: MCHC (RBC) [Mass/Vol] 35.1 g/dL Normal 31.5-35.7 [facility] prehensive Internal Medicine; [facility] Work Phone: MCV (RBC) [Entitic vol] 93 fL Normal 79-97 [facility]; [facility] Work Phone: Monocytes (Bld) [#/Vol] 1.2 10*3/uL Abnormal 0.1-0.9 [facility]; [facility] Work Phone: Monocytes/100 WBC (Bld) 9 % Normal [facility]; [facility] Work Phone: Neutrophils (Bld) [#/Vol] 7.5 10*3/uL Abnormal 1.4-7.0 [facility]; [facility] Work Phone: Neutrophils/100 WBC (Bld) 55 % Normal [facility]; [facility] Work Phone: Platelets (Bld) [#/Vol] 327 10*3/uL Normal 150-450 [facility]; [facility] Work Phone: RBC (Bld) [#/Vol] 4.49 10*6/uL Normal 4.14-5.80 [facility]; [facility] Work Phone: WBC (Bld) [#/Vol] 13.7 10*3/uL Abnormal 3.4-10.8 [facility]; [facility] Work Phone: LIPID PANEL ([phone])Ordered B y: .Net Developer on 08-05-2020 Cholesterol [Mass/Vol] 196 mg/dL Normal 100-199 [facility]; [facility] Work Phone: Cholesterol in HDL [Mass/Vol] 52 mg/dL Normal [facility]; [facility] Work Phone: Triglyceride [Mass/Vol] 115 mg/dL Normal 0-149 [facility]; [facility] Work Phone: LIPID PANEL ([phone]) 21 mg/dL Normal 5-40 [facility]; [facility] Work Phone: LIPID PANEL ([id number]) 123 mg/dL Abnormal 0-99 [facility]; [facility] Work Phone: LIPID PANEL ([phone]) 2.4 {ratio} Normal 0.0-3.6 [facility]; [facility] Work Phone: METABOLIC PANEL, COMPREHENSI VE ([phone])Ordered By: .Net Developer on 08-05-2020 Albumin [Mass/Vol] 4.6 g/dL Normal 3.8-4.9 [facility]; [facility] Work Phone: Albumin/Globulin [Mass ratio] 2.1 {ratio} Normal 1.2-2.2 [facility]; [facility] Work Phone: ALP [Catalytic activity/Vol] 73 U/L Normal 39-117 [facility]; [facility] Work Phone: ALT [Catalytic activity/Vol] 46 U/L Abnormal 0-44 [facility]; [facility] Work Phone: AST [Catalytic activity/Vol] 41 U/L Abnormal 0-40 [facility]; [facility] Work Phone: Bilirubin [Mass/Vol] 0.4 mg/dL Normal 0.0-1.2 [facility]; [facility] Work Phone: Calcium [Mass/Vol] 9.5 mg/dL Normal 8.7-10.2 [facility]; [facility] Work Phone: Chloride [Moles/Vol] 102 mmol/L Normal 96-106 [facility] Internal Medicine; [facility] Work Phone: CO2 [Moles/Vol] 25 mmol/L Normal 20-29 [facility]; [facility] Work Phone: Creatinine [Mass/Vol] 1.16 mg/dL Normal 0.76-1.27 [facility] Internal [facility]; [facility] Work Phone: GFR/1.73 sq M.predicted among blacks CKD-EPI (S/P/Bld) [Vol rate/Area] 83 mL/min/1.73 Normal [facility]; [facility] Work Phone: GFR/1.73 sq M.predicted among non-blacks CKD-EPI (S/P/Bld) [Vol rate/Area] 71 mL/min/1.73 Normal [facility]; [facility] Work Phone: Globulin (S) [Mass/Vol] 2.2 g/dL Normal 1.5-4.5 [facility]; [facility] Work Phone: Glucose [Mass/Vol] 77 mg/dL Normal 65-99 [facility]; [facility] Work Phone: Potassium [Moles/Vol] 4.4 mmol/L Normal 3.5-5.2 [facility] Internal [facility] Internal Medicine Work Phone: Protein [Mass/Vol] 6.8 g/dL Normal 6.0-8.5 Compre hensive [facility]; [facility] Work Phone: Sodium [Moles/Vol] 139 mmol/L Normal 134-144 Compre hens[facility]; [facility] Work Phone: Urea nitrogen [Mass/Vol] 20 mg/dL Normal 6-24 [facility]; [facility] Work Phone: Urea nitrogen/Creatinine [Mass ratio] 17 mg/mg Normal 9-20 [facility]; [facility] Work Phone: MICROALBUMINOrdered By: [employer] em Welcome Desk Agent on 08-05-2020 Albumin DL <= 20 mg/L (U) [Mass/Vol] 6.5 ug/mL Normal [facility]; [facility] Work Phone: Albumin/Creatinine (U) [Mass ratio] 4 {mg/g_creat} Normal 0-29 [facility]; [facility] Work Phone: Creatinine (U) [Mass/Vol] 172.0 mg/dL Normal [facility]; [facility] Work Phone: PSA (PROSTATE SPECIFIC ANTIG EN) (V76.44)Ordered By: .Net Developer on 08-05-2020 Prostate specific Ag [Mass/Vol] 0.4 ng/mL Normal 0.0-4.0 [facility]; [facility] Work Phone: TSH ([phone])Ordered By: [employer] m Welcome Desk Agent on 08-05-2020 TSH Qn 1.950 {uIU/mL} Normal 0.450-4.500 Comprehen sive [facility]; [facility] Work Phone: URINALYSIS, W/ MICRO ([phone]) Ordered By: .Net Developer on 08-05-2020 Appearance (U) Clear Normal [facility]prehens [facility]; [facility] Work Phone: Bilirubin Ql (U) Negative Normal Comprehe nsive [facility]; [facility] Work Phone: Color (U) Yellow Normal [facility]; [facility] Work Phone: Glucose Ql (U) Negative Normal [facility]; [facility] Work Phone: Hemoglobin Ql (U) Negative Normal Compreh ensive [facility]; [facility] Work Phone: Ketones Ql (U) Negative Normal [facility]; [facility] Work Phone: Leukocyte esterase Test strip Ql (U) Negative Normal [facility]; [facility] Work Phone: Microscopic observation LM Nom (Urine sed) MICRON Normal [facility]; [facility] Work Phone: Microscopic observation LM Nom (Urine sed) See below: Normal [facility]; [facility] Work Phone: Nitrite Ql (U) Negative Normal [facility]; [facility] Work Phone: pH (U) 6.0 [pH] Normal 5.0-7.5 [facility]; [facility] Work Phone: Protein Ql (U) Negative Normal [facility]prehens [facility]; [facility] Work Phone: Specific gravity (U) [Rel density] 1.026 1 Normal 1.005-1.030 [facility]; [facility] Work Phone: Urobilinogen (U) [Mass/Vol] 0.2 mg/dL Normal 0.2-1.0 [facility]; [facility] Work Phone: Blood Glucose , Office ([phone])Ordered By: Nataly Villarreal on 07-29-2020 Glucose Glucometer (BldC) [Moles/Vol] 117 1 Normal [facility]; [facility] Work Phone: HgA1C , Office ([phone])Ordere d By: Nataly Villarreal on 07-29-2020 HbA1c (Bld) [Mass fraction] 5.7 % Normal 4.6 - 7.1 [facility]; [facility] Work Phone: Blood Glucose , Office ([phone])Ordered By: Gretel Melvin on 06-19-2019 Glucose Glucometer (BldC) [Moles/Vol] 100 1 Normal [facility] Work Phone: CBC W/AUTO DIFF WBC ([phone])O rdered By: .Net Developer on 06-19-2019 Basophils (Bld) [#/Vol] 0.0 {x10E3/uL} Normal 0.0-0.2 [facility] Work Phone: Comment on above: PATIENT WAS FASTINGP ERFORMED BY: PORSHA Manning[address] [facility] [id number] Basophils (Bld) [#/Vol] 0.0 10*3/uL Normal 0.0-0.2 [facility]; [facility] Work Phone: Basophils/100 WBC (Bld) 0 % Normal [facility] Work Phone: Comment on above: PATIENT WAS FASTINGP ERFORMED BY: PORSHA Salazarlin[address] [facility] [id number] Eosinophils (Bld) [#/Vol] 0.2 {x10E3/uL} Normal 0.0-0.4 [facility] Work Phone: Comment on above: PATIENT WAS FASTINGP ERFORMED BY: PORSHA Salazarlin[address] [facility] [id number] Eosinophils (Bld) [#/Vol] 0.2 10*3/uL Normal 0.0-0.4 [facility]; [facility] Work Phone: Eosinophils/100 WBC (Bld) 2 % Normal [facility] Work Phone: Comment on above: PATIENT WAS FASTINGP ERFORMED BY: PORSHA Salazarlin6[address] [facility] [id number] Erythrocyte distribution width (RBC) [Ratio] 13.7 % Normal 11.6-15.4 [facility] Work Phone: Comment on above: PATIENT WAS FASTINGP ERFORMED BY: PORSHA Salazarlin6[address] [facility] [id number] Hematocrit (Bld) [Volume fraction] 44.5 % Normal 37.5-51.0 [facility] Work Phone: Comment on above: PATIENT WAS FASTINGP ERFORMED BY: [facility] [facility] [id number] Hemoglobin (Bld) [Mass/Vol] 15.2 g/dL Normal 13.0-17.7 [facility] Work Phone: Comment on above: PATIENT WAS FASTINGP ERFORMED BY: [facility] [facility] [id number] Immature granulocytes (Bld) [#/Vol] 0.0 {x10E3/uL} Normal 0.0-0.1 [facility] Work Phone: Comment on above: PATIENT WAS FASTINGP ERFORMED BY: [place] [id number] [facility] [id number] Immature granulocytes (Bld) [#/Vol] 0.0 10*3/uL Normal 0.0-0.1 [facility]; [facility] Work Phone: Immature granulocytes/100 WBC (Bld) 0 % Normal [facility] Work Phone: Comment on above: PATIENT WAS FASTINGP ERFORMED BY: [facility] [facility] [id number] Lymphocytes (Bld) [#/Vol] 3.4 {x10E3/uL} Abnormal 0.7-3.1 [facility] Work Phone: Comment on above: PATIENT WAS FASTINGP ERFORMED BY: [facility] [facility] [id number] Lymphocytes (Bld) [#/Vol] 3.4 10*3/uL Abnormal 0.7-3.1 [facility]; [facility] Work Phone: Lymphocytes/100 WBC (Bld) 34 % Normal [facility] Work Phone: Comment on above: PATIENT WAS FASTINGP ERFORMED BY: [facility] [facility] [id number] MCH (RBC) [Entitic mass] 31.8 pg Normal 26.6-33.0 [facility] Work Phone: Comment on above: PATIENT WAS FASTINGP ERFORMED BY: [facility] [facility] [id number] MCHC (RBC) [Mass/Vol] 34.2 g/dL Normal 31.5-35.7 [facility] prehensive Internal Medicine Work Phone: Comment on above: PATIENT WAS FASTINGP ERFORMED BY: [facility] [facility] [id number] MCV (RBC) [Entitic vol] 93 fL Normal 79-97 [facility] Work Phone: Comment on above: PATIENT WAS FASTINGP ERFORMED BY: [facility] [facility] [id number] Monocytes (Bld) [#/Vol] 0.9 {x10E3/uL} Normal 0.1-0.9 [facility] Work Phone: Comment on above: PATIENT WAS FASTINGP ERFORMED BY: [facility] [facility] [id number] Monocytes (Bld) [#/Vol] 0.9 10*3/uL Normal 0.1-0.9 [facility]; [facility] Work Phone: Monocytes/100 WBC (Bld) 9 % Normal [facility] Work Phone: Comment on above: PATIENT WAS FASTINGP ERFORMED BY: [facility] [facility] [id number] Neutrophils (Bld) [#/Vol] 5.3 {x10E3/uL} Normal 1.4-7.0 [facility] Work Phone: Comment on above: PATIENT WAS FASTINGP ERFORMED BY: [facility] [facility] [id number] Neutrophils (Bld) [#/Vol] 5.3 10*3/uL Normal 1.4-7.0 [facility]; [facility] Work Phone: Neutrophils/100 WBC (Bld) 55 % Normal [facility] Work Phone: Comment on above: PATIENT WAS FASTINGP ERFORMED BY: [facility] [facility] [id number] Platelets (Bld) [#/Vol] 322 {x10E3/uL} Normal 150-450 [facility] Work Phone: Comment on above: PATIENT WAS FASTINGP ERFORMED BY: [facility] [facility] [id number] Platelets (Bld) [#/Vol] 322 10*3/uL Normal 150-450 [facility]; [facility] Work Phone: RBC (Bld) [#/Vol] 4.78 {x10E6/uL} Normal 4.14-5.80 [facility] Work Phone: Comment on above: PATIENT WAS FASTINGP ERFORMED BY: [facility] [facility] [id number] RBC (Bld) [#/Vol] 4.78 10*6/uL Normal 4.14-5.80 [facility]; [facility] Work Phone: WBC (Bld) [#/Vol] 9.8 {x10E3/uL} Normal 3.4-10.8 [facility] Work Phone: Comment on above: PATIENT WAS FASTINGP ERFORMED BY: [facility] [facility] [id number] WBC (Bld) [#/Vol] 9.8 10*3/uL Normal 3.4-10.8 [facility]; [facility] Work Phone: HgA1C , Office ([phone])Ordere d By: Gretel Melvin on 06-19-2019 HbA1c (Bld) [Mass fraction] 5.7 % Normal 4.6 - 7.1 [facility] Work Phone: LIPID PANEL ([phone])Ordered B y: .Net Developer on 06-19-2019 Cholesterol [Mass/Vol] 200 mg/dL Abnormal 100-199 [facility] Work Phone: Comment on above: PATIENT WAS FASTINGP ERFORMED BY: PORSHA LabColewis Cpycsp7531 [address] RoadDublin [place] [id number] Cholesterol in HDL [Mass/Vol] 31 mg/dL Abnormal [facility] Work Phone: Comment on above: PATIENT WAS FASTINGP ERFORMED BY: PORSHA LabColewis SalazarNcmgkb1268 [address] RoadDublin [place] [id number] Cholesterol in LDL [Mass/Vol] 110 mg/dL Abnormal 0-99 [facility] Work Phone: Comment on above: PATIENT WAS FASTINGP ERFORMED BY: PORSHA LabColewis SaalzarMfvljl4662 [address] RoadDublin [place] [id number] Cholesterol in LDL/Cholesterol in HDL [Mass ratio] 3.5 {ratio} Normal 0.0-3.6 [facility] Work Phone: Comment on above: LDL/HDL Ratio Men Wo men 1/2 Avg.Risk 1.0 1.5 Avg.Risk 3.6 3.2 2X Avg.Risk 6.2 5.0 3X Avg.Risk 8.0 6.1 PATIENT WAS FASTINGP ERFORMED BY: PORSHA LabColewis Nslswu6143 [address] RoadDublin [place] [id number] Cholesterol in VLDL [Mass/Vol] 59 mg/dL Abnormal 5-40 [facility] Work Phone: Comment on above: PATIENT WAS FASTINGP ERFORMED BY: PORSHA LabKeaton SalazarFkqnvx6850 [address] RoadDublin [place] [id number] Triglyceride [Mass/Vol] 293 mg/dL Abnormal 0-149 [facility] Work Phone: Comment on above: PATIENT WAS FASTINGP ERFORMED BY: PORSHA [facility] Yvzasq6675 [address] RoadDublin [place] [id number] METABOLIC PANEL, COMPREHENSI VE ([id number])Ordered By: .Net Developer on 06-19-2019 Albumin [Mass/Vol] 4.6 g/dL Normal 3.8-4.9 [facility] Internal Medicine Work Phone: Comment on above: PATIENT WAS FASTINGP ERFORMED BY: PORSHA [facility] Tqrvpd9609 [address] RoadDublin [place] [id number] Albumin/Globulin [Mass ratio] 2.2 {ratio} Normal 1.2-2.2 [facility] Work Phone: Comment on above: PATIENT WAS FASTINGP ERFORMED BY: PORSHA GualbertoKeaton Wafhta[address] [facility] Hospitalblin [place] [id number] ALP [Catalytic activity/Vol] 69 [iU]/L Normal 39-117 [facility] Work Phone: Comment on above: PATIENT WAS FASTINGP ERFORMED BY: PORSHA GualbertoPaul Bjvros[address] [facility]in [place] [id number] ALP [Catalytic activity/Vol] 69 U/L Normal 39-117 [facility]; [facility] Work Phone: ALT [Catalytic activity/Vol] 40 [iU]/L Normal 0-44 [facility] Work Phone: Comment on above: PATIENT WAS FASTINGP ERFORMED BY: PORSHA Salazarlin[address] [facility] [id number] ALT [Catalytic activity/Vol] 40 U/L Normal 0-44 [facility]; [facility] Work Phone: AST [Catalytic activity/Vol] 27 [iU]/L Normal 0-40 [facility] Work Phone: Comment on above: PATIENT WAS FASTINGP ERFORMED BY: PORSHA Salazarlin[address] [facility] [id number] AST [Catalytic activity/Vol] 27 U/L Normal 0-40 [facility]; [facility] Work Phone: Bilirubin [Mass/Vol] 0.2 mg/dL Normal 0.0-1.2 Comp rehensive Internal Medicine Work Phone: Comment on above: PATIENT WAS FASTINGP ERFORMED BY: PORSHA GualbertoKeaton SalazarYrarft[address] [facility] Hospitalblin [place] [id number] Calcium [Mass/Vol] 9.6 mg/dL Normal 8.7-10.2 [facility] Internal Medicine Work Phone: Comment on above: PATIENT WAS FASTINGP ERFORMED BY: PORSHA LabCorey Ville 1157[address] RoadDublin [place] [id number] Chloride [Moles/Vol] 102 mmol/L Normal 96-106 [facility] Work Phone: Comment on above: PATIENT WAS FASTINGP ERFORMED BY: [facility] Btadrj2995 [address] RoadDublin [place] [id number] CO2 [Moles/Vol] 25 mmol/L Normal 20-29 [facility] Internal [facility] Work Phone: Comment on above: PATIENT WAS FASTINGP ERFORMED BY: [facility] Icdbjb2538 [address] RoadDublin [place] [id number] Creatinine [Mass/Vol] 1.14 mg/dL Normal 0.76-1.27 [facility] Work Phone: Comment on above: PATIENT WAS FASTINGP ERFORMED BY: [facility]Cit[facility] Iyveeq1952 [address]Dublin [place] [id number] GFR/1.73 sq M predicted among blacks CKD-EPI (S/P/Bld) [Vol rate/Area] 86 mL/min/1.73 Normal [facility] Work Phone: Comment on above: PATIENT WAS FASTINGP ERFORMED BY: [facility]Cit[facility] Zbmbns5303 [address] RoadDublin [place] [id number] GFR/1.73 sq M predicted among non-blacks CKD-EPI (S/P/Bld) [Vol rate/Area] 74 mL/min/1.73 Normal [facility] Work Phone: Comment on above: PATIENT WAS FASTINGP ERFORMED BY: [facility] Bphskb5029 [address] RoadDublin [place] [id number] Globulin (S) [Mass/Vol] 2.1 g/dL Normal 1.5-4.5 [facility] Work Phone: Comment on above: PATIENT WAS FASTINGP ERFORMED BY: [facility] Ilatuo7959 [address] RoadDublin [place] [id number] Glucose [Mass/Vol] 77 mg/dL Normal 65-99 [facility] Internal Medicine Work Phone: Comment on above: PATIENT WAS FASTINGP ERFORMED BY: PORSHA LabKeaton Gozzqs3255 [address] RoadDublin [place] [id number] Potassium [Moles/Vol] 4.5 mmol/L Normal 3.5-5.2 [facility] Internal Medicine Work Phone: Comment on above: PATIENT WAS FASTINGP ERFORMED BY: PORSHA LabKeaton SalazarGvhptg1562 [address] RoadDublin [place] [id number] Protein [Mass/Vol] 6.7 g/dL Normal 6.0-8.5 [facility] Internal Medicine Work Phone: Comment on above: PATIENT WAS FASTINGP ERFORMED BY: PORSHA LabKeaton SalazarBwyycg5250 [address] RoadDublin [place] [id number] Sodium [Moles/Vol] 141 mmol/L Normal 134-144 [facility] Internal Medicine Work Phone: Comment on above: PATIENT WAS FASTINGP ERFORMED BY: PORSHA Salazarlin[address]Dublin [place] [id number] Urea nitrogen [Mass/Vol] 9 mg/dL Normal 6-24 [facility] Internal Medicine Work Phone: Comment on above: PATIENT WAS FASTINGP ERFORMED BY: PORSHA LabKeaton SalazarKreoqc9[address]Dublin [place] [id number] Urea nitrogen/Creatinine [Mass ratio] 8 mg/mg Abnormal 9-20 [facility] Work Phone: Comment on above: PATIENT WAS FASTINGP ERFORMED BY: PORSHA Salazarlin[address]Dublin [place] [id number] MICROALBUMINOrdered By: [employer] em Welcome Desk Agent on 06-19-2019 Albumin DL <= 20 mg/L (U) [Mass/Vol] 9.8 ug/mL Normal [facility] Work Phone: Comment on above: PATIENT WAS FASTINGP ERFORMED BY: PORSHA LabKeaton SalazarNmfvmv1982 [address] RoadDublin [place] [id number] Albumin/Creatinine (U) [Mass ratio] 4 {mg/g_creat} Normal 0-29 [facility] Work Phone: Comment on above: Normal: 0 - 29 Moder ately increased: 30 - 300 Severely increased: >300 Please note reference interval change PATIENT WAS FASTINGP ERFORMED BY: PORSHA [employer]ially Xwp[address] [employer]bl[place] [id number] Creatinine (U) [Mass/Vol] 224.2 mg/dL Normal [facility] Work Phone: Comment on above: PATIENT WAS FASTINGP ERFORMED BY: [employer] LabMilestone Systemsrp Kvtezs0869 [address] RoadDublin [place] [id number] PSA (PROSTATE SPECIFIC ANTIG EN) ([id number])Ordered By: .Net Developer on 06-19-2019 Prostate specific Ag [Mass/Vol] 0.6 ng/mL Normal 0.0-4.0 [facility] Work Phone: Comment on above: Zinch ECLIA methodol ogy. .According to the [place] [employer], Serum PSA shoulddecrease and remain at undetectable levels after radicalprostatectomy. The AUA defines biochemical recurrence as an initialPSA value 0.2 ng/mL or greater followed by a subsequent confirmatoryPSA value 0.2 ng/mL or greater.Values obtained with different assay methods or kits cannot be usedinterchangeably. Results cannot be interpreted as absolute evidenceof the presence or absence of malignant disease. PATIENT WAS FASTINGP ERFORMED BY: Vusion Soiqhb[address] [employer] [id number] TSH ([id number])Ordered By: Tinselvision m Welcome Desk Agent on 06-19-2019 TSH Qn 6.100 {uIU/mL} Abnormal 0.450-4.500 Comprehen sive Internal Medicine Work Phone: Comment on above: PATIENT WAS FASTINGP ERFORMED BY: Vusion Taalfi[address] Shopping MailDublin [place] [id number] URINALYSIS, W/ MICRO ([id number]) Ordered By: .Net Developer on 06-19-2019 Appearance (U) Clear Normal Comprehens olivia Internal Medicine Work Phone: Comment on above: PATIENT WAS FASTINGP ERFORMED BY: EarLens [facility] Rfzpca8406 [address] RoadDublin [place] [id number] Bilirubin Ql (U) Negative Normal Comprehe nsive Internal Medicine Work Phone: Comment on above: PATIENT WAS FASTINGP ERFORMED BY: PORSHA LabKeaton SalazarSzdpcy3117 [address] RoadDublin [place] [id number] Bilirubin Ql (U) Negative Normal Comprehe nsive Internal Medicine; [facility] Work Phone: Color (U) Yellow Normal [facility] Work Phone: Comment on above: PATIENT WAS FASTINGP ERFORMED BY: PORSHA LabColewis SalazarCbuxdc6223 Z[address] RoadDublin [place] [id number] Glucose Ql (U) Negative Normal Comprehens olivia Internal Medicine Work Phone: Comment on above: PATIENT WAS FASTINGP ERFORMED BY: PORSHA Salazarlin6370 [address] RoadDublin [place] [id number] Glucose Ql (U) Negative Normal Comprehens olivia [facility] Medicine; [facility] Work Phone: Hemoglobin Ql (U) Negative Normal Compreh ensive Internal Medicine Work Phone: Comment on above: PATIENT WAS FASTINGP ERFORMED BY: PORSHA Salazarlin6370 [address] RoadNovant Health Huntersville Medical Centerin [place] [id number] Hemoglobin Ql (U) Negative Normal Compreh ensive Internal Medicine; [facility] Work Phone: Ketones Ql (U) Negative Normal Comprehens olivia Internal Medicine Work Phone: Comment on above: PATIENT WAS FASTINGP ERFORMED BY: PORSHA Salazarlin6370 [address] RoadDublin [place] [id number] Ketones Ql (U) Negative Normal Comprehens olivia [facility]; [facility] Work Phone: Leukocyte esterase Test strip Ql (U) Negative Normal [facility] Work Phone: Comment on above: PATIENT WAS FASTINGP ERFORMED BY: PORSHA [facility] Ctmvtt5184 [address] RoadDublin [place] [id number] Leukocyte esterase Test strip Ql (U) Negative Normal [facility]; [facility] Work Phone: Microscopic observation LM Nom (Urine sed) See below: Normal [facility] Work Phone: Comment on above: Microscopic was lisa cated and was performed. PATIENT WAS FASTINGP ERFORMED BY: PORSHA [facility] Zwzajq3503 Z[address] RoadDublin [place] [id number] Microscopic observation LM Nom (Urine sed) MICRON Normal [facility] Work Phone: Comment on above: Microscopic follows if indicated. PATIENT WAS FASTINGP ERFORMED BY: PORSHA [facility] Qkudvn0303 [address] RoadDublin [place] [id number] Nitrite Ql (U) Negative Normal Comprehens olivia Internal Medicine Work Phone: Comment on above: PATIENT WAS FASTINGP ERFORMED BY: PORSHA [facility] Ixcbvv6762 [address] Roadblin [place] [id number] Nitrite Ql (U) Negative Normal Comprehens olivia [facility]; [facility] Work Phone: pH (U) 7.0 [pH] Normal 5.0-7.5 [facility] Work Phone: Comment on above: PATIENT WAS FASTINGP ERFORMED BY: PORSHA [facility] Rxpdco9543 [address] Shopping MailNovant Health Huntersville Medical Centerin [place] [id number] Protein Ql (U) Negative Normal Comprehens olivia Internal Medicine Work Phone: Comment on above: PATIENT WAS FASTINGP ERFORMED BY: PORSHA [facility] Wkbstc[address] Shopping MailDublin [place] [id number] Protein Ql (U) Negative Normal Comprehens olivia [facility]; [facility] Work Phone: Specific gravity (U) [Rel density] 1.022 1 Normal 1.005-1.030 [facility] Work Phone: Comment on above: PATIENT WAS FASTINGP ERFORMED BY: PORSHA [facility] Dggezh1953 [address] RoadDublin [place] [id number] Urobilinogen (U) [Mass/Vol] 0.2 mg/dL Normal 0.2-1.0 [facility]; [facility] Work Phone: Urobilinogen Test strip (U) [Mass/Vol] 0.2 mg/dL Normal 0.2-1.0 Comprehensi ve Internal Medicine Work Phone: Comment on above: PATIENT WAS FASTINGP ERFORMED BY: PORSHA [facility] Urclor2703 [address] RoadDublin [place] [id number] Metabolic Panel, Comprehensi ve ([id number])Ordered By: .Net Developer on 09-21-2018 Albumin [Mass/Vol] 4.5 g/dL Normal 3.5-5.5 [facility] Internal Medicine Work Phone: Comment on above: PATIENT NOT FASTINGP ERFORMED BY: CB [facility] Xxxjgy2219 [address] RoadDublin [place] [id number] Albumin/Globulin [Mass ratio] 2.1 {ratio} Normal 1.2-2.2 [facility] Work Phone: Comment on above: PATIENT NOT FASTINGP ERFORMED BY: PORSHA [facility] Fgrirl7993 [address] RoadDublin [place] [id number] ALP [Catalytic activity/Vol] 63 [iU]/L Normal 39-117 [facility] Work Phone: Comment on above: PATIENT NOT FASTINGP ERFORMED BY: CB [facility] Sjnhve4107 [address] RoadDublin [place] [id number] ALP [Catalytic activity/Vol] 63 U/L Normal 39-117 [facility]; [facility] Work Phone: ALT [Catalytic activity/Vol] 42 [iU]/L Normal 0-44 [facility] Work Phone: Comment on above: PATIENT NOT FASTINGP ERFORMED BY: CB [facility] Qykeor4796 [address] RoadDublin [place] [id number] ALT [Catalytic activity/Vol] 42 U/L Normal 0-44 [facility]; [facility] Work Phone: AST [Catalytic activity/Vol] 43 [iU]/L Abnormal 0-40 [facility] Work Phone: Comment on above: PATIENT NOT FASTINGP ERFORMED BY: CB [facility] Palfze7905 [address] RoadDublin [place] [id number] AST [Catalytic activity/Vol] 43 U/L Abnormal 0-40 [facility]; [facility] Work Phone: Bilirubin [Mass/Vol] 0.3 mg/dL Normal 0.0-1.2 [facility] Work Phone: Comment on above: PATIENT NOT FASTINGP ERFORMED BY: CB [facility] Pautrz9828 [address] RoadDublin [place] [id number] Calcium [Mass/Vol] 9.7 mg/dL Normal 8.7-10.2 [facility] Internal Medicine Work Phone: Comment on above: PATIENT NOT FASTINGP ERFORMED BY: CB [facility] Yefylv8021 [address] RoadDublin [place] [id number] Chloride [Moles/Vol] 102 mmol/L Normal 96-106 [facility] Internal Medicine Work Phone: Comment on above: PATIENT NOT FASTINGP ERFORMED BY: CB [facility] Tcsqcj3884 [address] RoadDublin [place] [id number] CO2 [Moles/Vol] 23 mmol/L Normal 20-29 [facility] Internal Medicine Work Phone: Comment on above: PATIENT NOT FASTINGP ERFORMED BY: CB [facility] Utjjpn2889 [address] RoadDublin [place] [id number] Creatinine [Mass/Vol] 1.01 mg/dL Normal 0.76-1.27 [facility] Internal Medicine Work Phone: Comment on above: PATIENT NOT FASTINGP ERFORMED BY: CB [facility] Dfnbph8900 [address] RoadDublin [place] [id number] GFR/1.73 sq M predicted among blacks CKD-EPI (S/P/Bld) [Vol rate/Area] 99 mL/min/1.73 Normal [facility] Work Phone: Comment on above: PATIENT NOT FASTINGP ERFORMED BY: CB [facility] Irbzdd0511 [address] RoadDublin [place] [id number] GFR/1.73 sq M predicted among non-blacks CKD-EPI (S/P/Bld) [Vol rate/Area] 86 mL/min/1.73 Normal [facility] Work Phone: Comment on above: PATIENT NOT FASTINGP ERFORMED BY: PORSHA [facility] Gqjmqs0126 [address] RoadDublin [place] [id number] Globulin (S) [Mass/Vol] 2.1 g/dL Normal 1.5-4.5 [facility] Internal Medicine Work Phone: Comment on above: PATIENT NOT FASTINGP ERFORMED BY: CB [facility] Qxwafm5874 [address] RoadDublin [place] [id number] Glucose [Mass/Vol] 92 mg/dL Normal 65-99 [facility] Internal Medicine Work Phone: Comment on above: PATIENT NOT FASTINGP ERFORMED BY: CB [facility] Koshha7709 [address] RoadDublin [place] [id number] Potassium [Moles/Vol] 4.4 mmol/L Normal 3.5-5.2 [facility] Internal Medicine Work Phone: Comment on above: PATIENT NOT FASTINGP ERFORMED BY: PORSHA [facility] Recibt8610 [address] RoadDublin [place] [id number] Protein [Mass/Vol] 6.6 g/dL Normal 6.0-8.5 [facility] Internal Medicine Work Phone: Comment on above: PATIENT NOT FASTINGP ERFORMED BY: PORSHA [facility] Nvbacz1330 [address] RoadDublin [place] [id number] Sodium [Moles/Vol] 140 mmol/L Normal 134-144 [facility] Internal Medicine Work Phone: Comment on above: PATIENT NOT FASTINGP ERFORMED BY: PORSHA [facility] Azxctj4013 [address] RoadDublin [place] [id number] Urea nitrogen [Mass/Vol] 14 mg/dL Normal 6-24 [facility] Internal Medicine Work Phone: Comment on above: PATIENT NOT FASTINGP ERFORMED BY: CB [facility] Vqcwed1120 [address] RoadDublin [place] [id number] Urea nitrogen/Creatinine [Mass ratio] 14 mg/mg Normal 9-20 [facility] Internal Medicine Work Phone: Comment on above: PATIENT NOT FASTINGP ERFORMED BY: PORSHA [facility] Dojlcj1539 [address] RoadDublin [place] [id number] PT (PROTHROMBIN TIME) ([id number] )Ordered By: .Net Developer on 09-21-2018 INR Coag (PPP) [Relative time] 1.0 {INR} Normal 0.8-1.2 [facility] Work Phone: Comment on above: Reference interval i s for non-anticoagulated patients. . Suggested INR therapeutic range for Vitamin K antagonist therapy: Standard Dose (moderate intensity therapeutic range): 2.0 - 3.0 Higher intensity therapeutic range 2.5 - 3.5 PATIENT NOT FASTINGP ERFORMED BY: PORSHA Fixya Qdymny[address] Shopping MailNovant Health Huntersville Medical Centerin [place] [id number] PT Coag (PPP) [Time] 10.4 {sec} Normal 9.1-12.0 Comp rehensive Internal Medicine Work Phone: Comment on above: PATIENT NOT FASTINGP ERFORMED BY: PORSHA [facility] Mtqrxt3540 [address] Shopping MailNovant Health Huntersville Medical Centerin [place] [id number] PT Coag (PPP) [Time] 10.4 s Normal 9.1-12.0 Comp rehensive Internal Medicine; [facility] Work Phone: CBC & PLATELETS (AUTO) ([phone])Ordered By: .Net Developer on 01-12-2018 Erythrocyte distribution width Auto Ratio (RBC) 13.2 % Normal 12.3-15.4 [facility] Work Phone: Erythrocyte distribution width Ratio (RBC) 13.2 % Normal 12.3-15.4 [facility] Work Phone: Comment on above: PATIENT NOT FASTINGP ERFORMED BY: PORSHA LabCo Jnvdes[address] [facility] [id number] Hematocrit Auto Volume Fraction (Bld) 43.4 % Normal 37.5-51.0 [facility] Work Phone: Hematocrit Volume Fraction (Bld) 43.4 % Normal 37.5-51.0 [facility] Work Phone: Comment on above: PATIENT NOT FASTINGP ERFORMED BY: PORSHA [facility] Hbrtfh[address] [facility] [id number] Hemoglobin mass conc (Bld) 15.2 g/dL Normal 13.0-17.7 [facility] Work Phone: Comment on above: PATIENT NOT FASTINGP ERFORMED BY: PORSHA [facility] Ifanzw[address] [facility] [id number] MCH Auto Entitic mass (RBC) 32.3 pg Normal 26.6-33.0 [facility] Work Phone: MCH Entitic mass (RBC) 32.3 pg Normal 26.6-33.0 [facility] Internal Medicine Work Phone: Comment on above: PATIENT NOT FASTINGP ERFORMED BY: PORSHA LabColewis SalazarBrbtar[address] [facility] [id number] MCHC Auto mass conc (RBC) 35.0 g/dL Normal 31.5-35.7 [facility] Work Phone: MCHC mass conc (RBC) 35.0 g/dL Normal 31.5-35.7 [facility] Internal Medicine Work Phone: Comment on above: PATIENT NOT FASTINGP ERFORMED BY: PORSHA LabColewis SalazarDzparg1600 [facility] [id number] MCV Auto Entitic volume (RBC) 92 fL Normal 79-97 [facility] Work Phone: MCV Entitic volume (RBC) 92 fL Normal 79-97 [facility] Work Phone: Comment on above: PATIENT NOT FASTINGP ERFORMED BY: PORSHA [facility] Zlidle9223 [facility] [id number] Platelets #/vol (Bld) 284 {x10E3/uL} Normal 150-379 [facility] Work Phone: Comment on above: PATIENT NOT FASTINGP ERFORMED BY: PORSHA [facility] Iuyyfv1193 [address] [facility] [id number] Platelets (Bld) [#/Vol] 284 10*3/uL Normal 150-379 [facility]; [facility] Work Phone: Platelets Auto #/vol (Bld) 284 {x10E3/uL} Normal 150-379 [facility] Work Phone: RBC #/vol (Bld) 4.70 {x10E6/uL} Normal 4.14-5.80 [facility] Internal Medicine Work Phone: Comment on above: PATIENT NOT FASTINGP ERFORMED BY: OpenetWalter P. Reuther Psychiatric Hospital6370 [facility] [id number] RBC (Bld) [#/Vol] 4.70 10*6/uL Normal 4.14-5.80 [facility] Internal Medicine; [facility] Internal Medicine Work Phone: RBC Auto #/vol (Bld) 4.70 {x10E6/uL} Normal 4.14-5.80 [facility] Internal Medicine Work Phone: WBC #/vol (Bld) 8.4 {x10E3/uL} Normal 3.4-10.8 [facility] Internal Medicine Work Phone: Comment on above: PATIENT NOT FASTINGP ERFORMED BY: [facility]6370 [facility] [id number] WBC (Bld) [#/Vol] 8.4 10*3/uL Normal 3.4-10.8 [facility] Internal Medicine; [facility] Internal Medicine Work Phone: WBC Auto #/vol (Bld) 8.4 {x10E3/uL} Normal 3.4-10.8 [facility] Internal Medicine Work Phone: PSA (PROSTATE SPECIFIC ANTIG EN) (V76.44)Ordered By: .Net Developer on 01-12-2018 Prostate specific Ag mass conc 0.6 ng/mL Normal 0.0-4.0 [facility] Internal Medicine Work Phone: Comment on above: Caridad ECLIA methodol ogy. .According to the [place] [employer], Serum PSA shoulddecrease and remain at undetectable levels after radicalprostatectomy. The AUA defines biochemical recurrence as an initialPSA value 0.2 ng/mL or greater followed by a subsequent confirmatoryPSA value 0.2 ng/mL or greater.Values obtained with different assay methods or kits cannot be usedinterchangeably. Results cannot be interpreted as absolute evidenceof the presence or absence of malignant disease. PATIENT NOT FASTINGP ERFORMED BY: LabCoRobert Wood Johnson University Hospital at RahwayWzlxvk9078 [facility] [id number] Urinalysis, Office ([id number])Or dered By: Melina Hook on 01-12-2018 Bilirubin Ql (U) Negative Normal Comprehe nsive Internal Medicine Work Phone: Bilirubin Ql (U) Negative Normal Comprehe nsive Internal Medicine; [facility] Work Phone: Glucose Test strip (U) [Mass/Vol] Negative Normal [facility]; [facility] Work Phone: Glucose Test strip mass conc (U) Negative Normal [facility] Work Phone: Hemoglobin Ql (U) Negative Normal Compreh ensive Internal Medicine Work Phone: Hemoglobin Ql (U) Negative Normal Compreh ensive Internal Medicine; [facility] Work Phone: Hemoglobin Test strip Ql (U) Negative Normal [facility] Work Phone: Ketones Ql (U) Negative Normal Comprehens olivia Internal Medicine Work Phone: Ketones Ql (U) Negative Normal Comprehens olivia Internal Medicine; [facility] Work Phone: Leukocyte esterase Test strip Ql (U) Negative Normal [facility] Work Phone: Leukocyte esterase Test strip Ql (U) Negative Normal [facility]; [facility] Work Phone: Nitrite Ql (U) Negative Normal Comprehens olivia Internal Medicine Work Phone: Nitrite Ql (U) Negative Normal Comprehens olivia Internal Medicine; [facility] Work Phone: Nitrite Test strip Ql (U) Negative Normal [facility] Work Phone: pH (U) 8.5 [pH] Normal [facility] Work Phone: Comment on above: 10.5 - wouldnt let m e enter that high pH Test strip (U) 8.5 [pH] Normal Compreh ensive Internal Medicine Work Phone: Comment on above: 10.5 - wouldnt let m e enter that high Protein Ql (U) Negative Normal Comprehens olivia Internal Medicine Work Phone: Protein Ql (U) Negative Normal Comprehens olivia Internal Medicine; [facility] Work Phone: Protein Test strip Ql (U) Negative Normal [facility] Work Phone: Specific gravity Relative Density (U) 1.015 1 Normal Comprehensi ve Internal Medicine Work Phone: Urobilinogen mass/time (24H U) Normal Normal [facility] Work Phone: COLON BIOPSY (CHOOSE SITE)Or dered By: .Net Developer on 12-15-2017 COLON BIOPSY (CHOOSE SITE) See Note Normal [facility] Work Phone: Comment on above: Patient: PRADEEP VARGAS : 1965 (52/M) Acct Num: [id number] Phys: Bo Heath Unit Num: [id number] Loc: LABSPEC Specimen: [id number] Received: 12/15/17 1548 Spec Type: COLON BX TISSUES TISSUES: COLON BIOPSY GROSS DESCRIPTION Received in fixative is one container labeled with the patient's name and designated hepatic flexure. The specimen consists of multiple irregular fragments of light faust soft tissue that in aggregate measure 0.5 x 0.5 x 0.1 cm. The specimen is totally submitted in one cassette. / MICHELL:eliceo 12/18/17 TC:4 CPT: 80621 HEADER OPERATION: Colon with biopsy PRE-OP DIAGNOSIS: Rectal pain TISSUE SUBMITTED: Hepatic flexure polyp, rule out adenoma MICROSCOPIC DESCRIPTION Slides are reviewed. MICROSCOPIC DIAGNOSIS Hepatic flexure polyp, biopsy: Fragments of colonic mucosa, no pathologic diagnosis. SJ:eliceo 12/19/17 Signed Dante Kelly 12/19/17 [facility] Ycxncoyyuh4323 [facility] [place], [place], [address] CALCIFEDIOL (27945)Ordered B y: .Net Developer on 07-20-2017 25-Hydroxyvitamin D2+25-Hydroxyvitamin D3 mass conc 43.7 ng/mL Normal 30.0-100.0 [facility] Work Phone: Comment on above: Vitamin D deficiency has been defined by the [place] ofMedicine and an Endocrine Society practice guideline as alevel of serum 25-OH vitamin D less than 20 ng/mL (1,2).The Endocrine Society went on to further define vitamin Dinsufficiency as a level between 21 and 29 ng/mL (2).1. IOM ([place] of Medicine). 2010. Dietary reference intakes for calcium and D. Ramachandran [place]: The National Academies Press.2. Hortencia MF, Bianca NC, Rosenda AREVALO, et al. Evaluation, treatment, and prevention of vitamin D deficiency: an Endocrine Society clinical practice guideline. JCEM. 2010; 96(7):1911-30. PATIENT WAS FASTINGP ERFORMED BY: gDecide [place] [id number] CBC with auto diff (02755)Or dered By: .Net Developer on 07-20-2017 Basophils #/vol (Bld) 0.0 {x10E3/uL} Normal 0.0-0.2 [facility] Work Phone: Comment on above: PATIENT WAS FASTINGP ERFORMED BY: YeswareAtrium Health [facility] [id number] Basophils (Bld) [#/Vol] 0.0 10*3/uL Normal 0.0-0.2 [facility]; [facility] Work Phone: Basophils Auto #/vol (Bld) 0.0 {x10E3/uL} Normal 0.0-0.2 [facility] Work Phone: Basophils/100 WBC (Bld) 0 % Normal [facility] Work Phone: Comment on above: PATIENT WAS FASTINGP ERFORMED BY: YeswareAtrium Health [facility] [id number] Basophils/100 WBC Auto (Bld) 0 % Normal [facility] Work Phone: Eosinophils #/vol (Bld) 0.4 {x10E3/uL} Normal 0.0-0.4 [facility] Work Phone: Comment on above: PATIENT WAS FASTINGP ERFORMED BY: PORSHA Fixya Mjujlh1338 [employer] Secure SolutionsAtrium Health [facility]burg [id number] Eosinophils (Bld) [#/Vol] 0.4 10*3/uL Normal 0.0-0.4 [facility]; [facility] Work Phone: Eosinophils Auto #/vol (Bld) 0.4 {x10E3/uL} Normal 0.0-0.4 [facility] Work Phone: Eosinophils/100 WBC (Bld) 5 % Normal [facility] Work Phone: Comment on above: PATIENT WAS FASTINGP ERFORMED BY: PORSHA Fixyalewis SalazarLeidgo9825 [employer] Secure SolutionsAtrium Health [facility] [id number] Eosinophils/100 WBC Auto (Bld) 5 % Normal [facility] Work Phone: Erythrocyte distribution width Auto Ratio (RBC) 13.9 % Normal 12.3-15.4 [facility] Work Phone: Erythrocyte distribution width Ratio (RBC) 13.9 % Normal 12.3-15.4 [facility] Work Phone: Comment on above: PATIENT WAS FASTINGP ERFORMED BY: PORSHA Fixyalewis Lovvks5604 [address] Shopping MailAtrium Health Waxhaw [id number] Hematocrit Auto Volume Fraction (Bld) 42.8 % Normal 37.5-51.0 [facility] Work Phone: Hematocrit Volume Fraction (Bld) 42.8 % Normal 37.5-51.0 [facility] Work Phone: Comment on above: PATIENT WAS FASTINGP ERFORMED BY: PORSHA Fixya Jvkruv5[address] [employer].[facility] [id number] Hemoglobin mass conc (Bld) 14.7 g/dL Normal 13.0-17.7 [facility] Work Phone: Comment on above: PATIENT WAS FASTINGP ERFORMED BY: Qik Elcorf8303 [facility] [id number] Immature granulocytes #/vol (Bld) 0.0 {x10E3/uL} Normal 0.0-0.1 [facility] Work Phone: Comment on above: PATIENT WAS FASTINGP ERFORMED BY: [facility]6370 [facility] [id number] Immature granulocytes (Bld) [#/Vol] 0.0 10*3/uL Normal 0.0-0.1 [facility]; [facility] Work Phone: Immature granulocytes/100 WBC (Bld) 0 % Normal [facility] Work Phone: Comment on above: PATIENT WAS FASTINGP ERFORMED BY: [place] 0126270 [facility] [id number] Lymphocytes #/vol (Bld) 3.0 {x10E3/uL} Normal 0.7-3.1 [facility] Work Phone: Comment on above: PATIENT WAS FASTINGP ERFORMED BY: [facility]6370 [facility] [id number] Lymphocytes (Bld) [#/Vol] 3.0 10*3/uL Normal 0.7-3.1 [facility]; [facility] Work Phone: Lymphocytes Auto #/vol (Bld) 3.0 {x10E3/uL} Normal 0.7-3.1 [facility] Work Phone: Lymphocytes/100 WBC (Bld) 37 % Normal [facility] Work Phone: Comment on above: PATIENT WAS FASTINGP ERFORMED BY: [place] 0126270 [facility] [id number] Lymphocytes/100 WBC Auto (Bld) 37 % Normal [facility] Work Phone: MCH Auto Entitic mass (RBC) 31.7 pg Normal 26.6-33.0 [facility] Work Phone: MCH Entitic mass (RBC) 31.7 pg Normal 26.6-33.0 [facility] Internal Medicine Work Phone: Comment on above: PATIENT WAS FASTINGP ERFORMED BY: [facility]6370 [facility] [id number] MCHC Auto mass conc (RBC) 34.3 g/dL Normal 31.5-35.7 [facility] Work Phone: MCHC mass conc (RBC) 34.3 g/dL Normal 31.5-35.7 [facility]sum[facility] Internal [facility] Work Phone: Comment on above: PATIENT WAS FASTINGP ERFORMED BY: [place] 0126270 [facility] [id number] MCV Auto Entitic volume (RBC) 92 fL Normal 79-97 [facility] Work Phone: MCV Entitic volume (RBC) 92 fL Normal 79-97 [facility] Work Phone: Comment on above: PATIENT WAS FASTINGP ERFORMED BY: [place] 0126270 [facility] [facility] [id number] Monocytes #/vol (Bld) 0.8 {x10E3/uL} Normal 0.1-0.9 [facility] Work Phone: Comment on above: PATIENT WAS FASTINGP ERFORMED BY: [place] [id number] [facility] [id number] Monocytes (Bld) [#/Vol] 0.8 10*3/uL Normal 0.1-0.9 [facility]; [facility] Work Phone: Monocytes Auto #/vol (Bld) 0.8 {x10E3/uL} Normal 0.1-0.9 [facility] Work Phone: Monocytes/100 WBC (Bld) 10 % Normal [facility] Work Phone: Comment on above: PATIENT WAS FASTINGP ERFORMED BY: [place] 0126270 [facility] [id number] Monocytes/100 WBC Auto (Bld) 10 % Normal [facility] Work Phone: Neutrophils #/vol (Bld) 3.8 {x10E3/uL} Normal 1.4-7.0 [facility] Work Phone: Comment on above: PATIENT WAS FASTINGP ERFORMED BY: PORSHA Salazarlin6370 [facility] [id number] Neutrophils (Bld) [#/Vol] 3.8 10*3/uL Normal 1.4-7.0 [facility]; [facility] Work Phone: Neutrophils Auto #/vol (Bld) 3.8 {x10E3/uL} Normal 1.4-7.0 [facility] Work Phone: Neutrophils/100 WBC (Bld) 48 % Normal [facility] Work Phone: Comment on above: PATIENT WAS FASTINGP ERFORMED BY: PORSHA Salazarlin6370 [facility] [id number] Neutrophils/100 WBC Auto (Bld) 48 % Normal [facility] Work Phone: Platelets #/vol (Bld) 293 {x10E3/uL} Normal 150-379 [facility] Work Phone: Comment on above: PATIENT WAS FASTINGP ERFORMED BY: PORSHA Manning6370 [facility] [id number] Platelets (Bld) [#/Vol] 293 10*3/uL Normal 150-379 [facility]; [facility] Work Phone: Platelets Auto #/vol (Bld) 293 {x10E3/uL} Normal 150-379 [facility] Work Phone: RBC #/vol (Bld) 4.63 {x10E6/uL} Normal 4.14-5.80 Comp [facility] Internal [facility] Work Phone: Comment on above: PATIENT WAS FASTINGP ERFORMED BY: PORSHA LabKeaton Horoxf6933 [facility] [id number] RBC (Bld) [#/Vol] 4.63 10*6/uL Normal 4.14-5.80 Compr ensive [facility] Medicine; [facility] Work Phone: RBC Auto #/vol (Bld) 4.63 {x10E6/uL} Normal 4.14-5.80 [facility] Work Phone: WBC #/vol (Bld) 8.1 {x10E3/uL} Normal 3.4-10.8 Compr [facility] Internal Medicine Work Phone: Comment on above: PATIENT WAS FASTINGP ERFORMED BY: PORSHA LabMilestone Systemsrp Tsqpqv4980 [address] [facility] [place] [id number] WBC (Bld) [#/Vol] 8.1 10*3/uL Normal 3.4-10.8 Compre [facility] Internal Medicine; [facility] Work Phone: WBC Auto #/vol (Bld) 8.1 {x10E3/uL} Normal 3.4-10.8 [facility] Work Phone: LIPID PANEL ([id number])Ordered B y: .Net Developer on 07-20-2017 Cholesterol in HDL mass conc 39 mg/dL Abnormal [facility] Work Phone: Comment on above: PATIENT WAS FASTINGP ERFORMED BY: PORSHA [employer] [employer] [id number] Cholesterol in LDL mass conc 117 mg/dL Abnormal 0-99 [facility] Work Phone: Comment on above: PATIENT WAS FASTINGP ERFORMED BY: PORSHA LabJADE Healthcare Group70 [address] Shopping MailAtrium Health Waxhaw [id number] Cholesterol in LDL/Cholesterol in HDL mass ratio 3.0 {ratio} Normal 0.0-3.6 [facility] Work Phone: Comment on above: LDL/HDL Ratio Men Wo men 1/2 Avg.Risk 1.0 1.5 Avg.Risk 3.6 3.2 2X Avg.Risk 6.2 5.0 3X Avg.Risk 8.0 6.1 PATIENT WAS FASTINGP ERFORMED BY: PORSHA Labdepict6370 [address] Shopping MailAtrium Health Waxhaw [id number] Cholesterol in VLDL mass conc 35 mg/dL Normal 5-40 [facility] Work Phone: Comment on above: PATIENT WAS FASTINGP ERFORMED BY: PORSHA [facility] Nljvaa3549 [address] RoadDublin [place] [id number] Cholesterol mass conc 191 mg/dL Normal 100-199 Com prehensive Internal Medicine Work Phone: Comment on above: PATIENT WAS FASTINGP ERFORMED BY: PORSHA LabColewis SalazarWbzpvn6445 [address] RoadDublin [place] [id number] Triglyceride mass conc 176 mg/dL Abnormal 0-149 Co mprehensive [facility] Medicine Work Phone: Comment on above: PATIENT WAS FASTINGP ERFORMED BY: PORSHA [facility] Ajxfoz2598 [address] RoadDublin [place] [id number] METABOLIC PANEL, COMPREHENSI VE ([id number])Ordered By: .Net Developer on 07-20-2017 Albumin mass conc 4.3 g/dL Normal 3.5-5.5 Compreh ensive Internal Medicine Work Phone: Comment on above: PATIENT WAS FASTINGP ERFORMED BY: PORSHA LabPaulrp Ahjqho7783 [address] Roadblin [place] [id number] Albumin/Globulin mass ratio 2.0 {ratio} Normal 1.2-2.2 [facility] Work Phone: Comment on above: PATIENT WAS FASTINGP ERFORMED BY: PORSHA [facility] Hyogmp8422 [address] [facility] HospitalDublin [place] [id number] ALP [Catalytic activity/Vol] 60 U/L Normal 39-117 [facility]; [facility] Work Phone: ALP enzyme act/vol 60 [iU]/L Normal 39-117 Compre [facility] Internal Medicine Work Phone: Comment on above: PATIENT WAS FASTINGP ERFORMED BY: PORSHA [facility] Xmubif7390 [address] RoadDublin [place] [id number] ALT [Catalytic activity/Vol] 37 U/L Normal 0-44 [facility]; [facility] Work Phone: ALT enzyme act/vol 37 [iU]/L Normal 0-44 [facility] Internal Medicine Work Phone: Comment on above: PATIENT WAS FASTINGP ERFORMED BY: PORSHA [facility] Ibdcls9784 [address] RoadDublin [place] [id number] AST [Catalytic activity/Vol] 40 U/L Normal 0-40 [facility]; [facility] Work Phone: AST enzyme act/vol 40 [iU]/L Normal 0-40 Compre [facility] Internal Medicine Work Phone: Comment on above: PATIENT WAS FASTINGP ERFORMED BY: PORSHA LabPaul Uuiook9081 [address] [facility] [id number] Bilirubin mass conc 0.5 mg/dL Normal 0.0-1.2 Compr ensive Internal Medicine Work Phone: Comment on above: PATIENT WAS FASTINGP ERFORMED BY: PORSHA Keelewis Ffxzno6824 [facility] [id number] Calcium mass conc 9.1 mg/dL Normal 8.7-10.2 Compreh [facility] centerive Internal Medicine Work Phone: Comment on above: PATIENT WAS FASTINGP ERFORMED BY: PORSHA LabKeaton SalazarHlxaob1812 [facility] [id number] Chloride molar conc 101 mmol/L Normal 96-106 Compr [facility] Internal Medicine Work Phone: Comment on above: PATIENT WAS FASTINGP ERFORMED BY: PORSHA GualbertoKeaton SalazarKygyjm7686 [facility] [id number] CO2 molar conc 26 mmol/L Normal 18-29 Comprehpomona valley hospital [facility] Internal Medicine Work Phone: Comment on above: PATIENT WAS FASTINGP ERFORMED BY: PORSHA LabColewis SalazarKweekf9264 [facility] [id number] Creatinine mass conc 1.04 mg/dL Normal 0.76-1.27 Comp [facility] Internal Medicine Work Phone: Comment on above: PATIENT WAS FASTINGP ERFORMED BY: PORSHA LabCo Tvwbmk9055 [facility] [id number] GFR/1.73 sq M predicted among blacks CKD-EPI vol rate/area (S/P/Bld) 96 mL/min/1.73 Normal [facility] Work Phone: Comment on above: PATIENT WAS FASTINGP ERFORMED BY: PORSHA LabCo Daiunh5383 [address] [facility] [place] [id number] GFR/1.73 sq M predicted among non-blacks CKD-EPI vol rate/area (S/P/Bld) 83 mL/min/1.73 Normal Comprehensiv e Internal Medicine Work Phone: Comment on above: PATIENT WAS FASTINGP ERFORMED BY: PORSHA LabCo Yvjsct5469 [address] [facility]in [place] [id number] Globulin Calculated mass conc (S) 2.2 g/dL Normal 1.5-4.5 [facility] Work Phone: Globulin mass conc (S) 2.2 g/dL Normal 1.5-4.5 Co mprehensive [facility] Medicine Work Phone: Comment on above: PATIENT WAS FASTINGP ERFORMED BY: PORSHA LabCo Fduvgu2745 [facility] [id number] Glucose mass conc 94 mg/dL Normal 65-99 Compreh ensive Internal Medicine Work Phone: Comment on above: PATIENT WAS FASTINGP ERFORMED BY: PORSHA LabCo Srfyas0924 [address] [facility] [id number] Potassium molar conc 4.7 mmol/L Normal 3.5-5.2 Comp rehensive Internal Medicine Work Phone: Comment on above: PATIENT WAS FASTINGP ERFORMED BY: PORSHA LabCo Bymopy7451 [address] [facility] [id number] Protein mass conc 6.5 g/dL Normal 6.0-8.5 Compreh ensive Internal Medicine Work Phone: Comment on above: PATIENT WAS FASTINGP ERFORMED BY: PORSHA [facility] Gaufoh7578 [address] [facility] [place] [id number] Sodium molar conc 141 mmol/L Normal 134-144 Compreh ensive Internal Medicine Work Phone: Comment on above: PATIENT WAS FASTINGP ERFORMED BY: PORSHA [facility] Wkohrm0548 [address] [facility]in [place] [id number] Urea nitrogen mass conc 15 mg/dL Normal 6-24 [facility] Work Phone: Comment on above: PATIENT WAS FASTINGP ERFORMED BY: [facility] Inrzrv1638 [address] [facility] [place] [id number] Urea nitrogen/Creatinine mass ratio 14 mg/mg Normal 9-20 [facility] Work Phone: Comment on above: PATIENT WAS FASTINGP ERFORMED BY: [facility] Qbvhft7705 [address] [facility]in [place] [id number] MICROALBUMINOrdered By: Syst em Welcome Desk Agent on 07-20-2017 Albumin DL <= 20 mg/L mass conc (U) 3.1 ug/mL Normal [facility] Work Phone: Comment on above: PATIENT WAS FASTINGP ERFORMED BY: [facility] Gqumym5267 [address] [facility] [id number] Albumin/Creatinine mass ratio (U) 1.9 {mg/g_creat} Normal 0.0-30.0 [facility] Work Phone: Comment on above: PATIENT WAS FASTINGP ERFORMED BY: [facility] Byowdb2533 [address] [facility] [place] [id number] Creatinine mass conc (U) 164.4 mg/dL Normal [facility] Work Phone: Comment on above: PATIENT WAS FASTINGP ERFORMED BY: PORSHA [facility] Pkgnhz6026 [facility] [id number] TSH (THYROID STIMULATING HOR THEODORE) ([id number])Ordered By: .Net Developer on 07-20-2017 Thyrotropin Qn 2.200 {uIU/mL} Normal 0.450-4.500 [facility] Internal Medicine Work Phone: Comment on above: PATIENT WAS FASTINGP ERFORMED BY: [facility] Qsxibz7170 [address] [facility] [id number] HgA1C , Office ([id number])Ordere d By: Shari Dockery on 05-01-2017 Hemoglobin A1c/Hemoglobin.total mass fraction (Bld) 5.4 % Normal 4.6 - 7.1 Comprehensiv e Internal Medicine Work Phone: [id number]-[id number]-JYVYV ([phone])Ordered By: .Net Developer on 08-30-2016 AFP.tumor marker mass conc 3.6 ng/mL Normal 0.0-8.3 [facility] Work Phone: Comment on above: Caridad ECLIA methodol ogy PATIENT WAS FASTINGP ERFORMED BY: ChoiceStream70 [employer] Secure SolutionsAtrium Health [facility] [id number] CALCIFIDIOL ([id number]) VIT D 25 Ordered By: .Net Developer on 08-30-2016 25-Hydroxyvitamin D2+25-Hydroxyvitamin D3 mass conc 56.4 ng/mL Normal 30.0-100.0 [facility] Work Phone: Comment on above: Vitamin D deficiency has been defined by the [place] [facility] and an Endocrine Society practice guideline as alevel of serum 25-OH vitamin D less than 20 ng/mL (1,2).The Endocrine Society went on to further define vitamin Dinsufficiency as a level between 21 and 29 ng/mL (2).1. IOM ([place] of Medicine). 2010. Dietary reference intakes for calcium and D. Ramachandran [place]: The National Academies Press.2. Hortencia MF, Bianca NC, Rosenda AREVALO, et al. Evaluation, treatment, and prevention of vitamin D deficiency: an Endocrine Society clinical practice guideline. JCEM. 2010; 96(7):1911-30. PATIENT WAS FASTINGP ERFORMED BY: FanIQ6370 [employer] Secure SolutionsAtrium Health [facility] [id number] CBC with auto diff ([id number])Or dered By: .Net Developer on 08-30-2016 Basophils #/vol (Bld) 0.0 {x10E3/uL} Normal 0.0-0.2 [facility] Work Phone: Comment on above: PATIENT WAS FASTINGP ERFORMED BY: FanIQ6370 [address] [facility] [id number] Basophils (Bld) [#/Vol] 0.0 10*3/uL Normal 0.0-0.2 [facility]; [facility] Work Phone: Basophils Auto #/vol (Bld) 0.0 {x10E3/uL} Normal 0.0-0.2 [facility] Work Phone: Basophils/100 WBC (Bld) 0 % Normal [facility] Work Phone: Comment on above: PATIENT WAS FASTINGP ERFORMED BY: FixyaRobert Wood Johnson University Hospital at RahwayQlogxp5448 [facility] [id number] Basophils/100 WBC Auto (Bld) 0 % Normal [facility] Work Phone: Eosinophils #/vol (Bld) 0.2 {x10E3/uL} Normal 0.0-0.4 [facility] Work Phone: Comment on above: PATIENT WAS FASTINGP ERFORMED BY: PORSHA FixyaCHRISTUS St. Vincent Physicians Medical CenterBrshvp6749 [facility] [id number] Eosinophils (Bld) [#/Vol] 0.2 10*3/uL Normal 0.0-0.4 [facility]; [facility] Work Phone: Eosinophils Auto #/vol (Bld) 0.2 {x10E3/uL} Normal 0.0-0.4 [facility] Work Phone: Eosinophils/100 WBC (Bld) 2 % Normal [facility] Work Phone: Comment on above: PATIENT WAS FASTINGP ERFORMED BY: FixyaRobert Wood Johnson University Hospital at RahwayYqepoc6584 [facility] [id number] Eosinophils/100 WBC Auto (Bld) 2 % Normal [facility] Work Phone: Erythrocyte distribution width Auto Ratio (RBC) 13.5 % Normal 12.3-15.4 [facility] Work Phone: Erythrocyte distribution width Ratio (RBC) 13.5 % Normal 12.3-15.4 [facility] Work Phone: Comment on above: PATIENT WAS FASTINGP ERFORMED BY: FixyaSarah Ville 8782170 [facility] [id number] Hematocrit Auto Volume Fraction (Bld) 44.6 % Normal 37.5-51.0 [facility] Work Phone: Hematocrit Volume Fraction (Bld) 44.6 % Normal 37.5-51.0 [facility] Work Phone: Comment on above: PATIENT WAS FASTINGP ERFORMED BY: PORSHA GualbertoWalter P. Reuther Psychiatric Hospital6370 [facility] [id number] Hemoglobin mass conc (Bld) 15.1 g/dL Normal 12.6-17.7 [facility] Work Phone: Comment on above: PATIENT WAS FASTINGP ERFORMED BY: [address] [id number] Immature granulocytes #/vol (Bld) 0.0 {x10E3/uL} Normal 0.0-0.1 [facility] Work Phone: Comment on above: PATIENT WAS FASTINGP ERFORMED BY: PORSHA [facility] Masqhv[address] [id number] Immature granulocytes (Bld) [#/Vol] 0.0 10*3/uL Normal 0.0-0.1 [facility]; [facility] Work Phone: Immature granulocytes/100 WBC (Bld) 0 % Normal [facility] Work Phone: Comment on above: PATIENT WAS FASTINGP ERFORMED BY: PORSHA GualbertoCorey Ville 1157370 [facility] [id number] Lymphocytes #/vol (Bld) 2.7 {x10E3/uL} Normal 0.7-3.1 [facility] Work Phone: Comment on above: PATIENT WAS FASTINGP ERFORMED BY: [address] [id number] Lymphocytes (Bld) [#/Vol] 2.7 10*3/uL Normal 0.7-3.1 [facility]; [facility] Work Phone: Lymphocytes Auto #/vol (Bld) 2.7 {x10E3/uL} Normal 0.7-3.1 [facility] Work Phone: Lymphocytes/100 WBC (Bld) 24 % Normal [facility] Work Phone: Comment on above: PATIENT WAS FASTINGP ERFORMED BY: [facility]6370 [facility] [id number] Lymphocytes/100 WBC Auto (Bld) 24 % Normal [facility] Work Phone: MCH Auto Entitic mass (RBC) 32.0 pg Normal 26.6-33.0 [facility] Work Phone: MCH Entitic mass (RBC) 32.0 pg Normal 26.6-33.0 [facility] Internal Medicine Work Phone: Comment on above: PATIENT WAS FASTINGP ERFORMED BY: [place] 0126270 [facility] [id number] MCHC Auto mass conc (RBC) 33.9 g/dL Normal 31.5-35.7 [facility] Work Phone: MCHC mass conc (RBC) 33.9 g/dL Normal 31.5-35.7 [facility] Internal Medicine Work Phone: Comment on above: PATIENT WAS FASTINGP ERFORMED BY: [place] 0126270 [facility] [id number] MCV Auto Entitic volume (RBC) 95 fL Normal 79-97 [facility] Work Phone: MCV Entitic volume (RBC) 95 fL Normal 79-97 [facility] Internal Medicine Work Phone: Comment on above: PATIENT WAS FASTINGP ERFORMED BY: [place] 0126270 [facility] [id number] Monocytes #/vol (Bld) 0.8 {x10E3/uL} Normal 0.1-0.9 [facility] Work Phone: Comment on above: PATIENT WAS FASTINGP ERFORMED BY: [place] 0126270 [facility] [id number] Monocytes (Bld) [#/Vol] 0.8 10*3/uL Normal 0.1-0.9 [facility]; [facility] Work Phone: Monocytes Auto #/vol (Bld) 0.8 {x10E3/uL} Normal 0.1-0.9 [facility] Work Phone: Monocytes/100 WBC (Bld) 7 % Normal [facility] Work Phone: Comment on above: PATIENT WAS FASTINGP ERFORMED BY: PORSHA [place] 3829370 [facility] [id number] Monocytes/100 WBC Auto (Bld) 7 % Normal [facility] Work Phone: Neutrophils #/vol (Bld) 7.4 {x10E3/uL} Abnormal 1.4-7.0 [facility] Work Phone: Comment on above: PATIENT WAS FASTINGP ERFORMED BY: PORSHA [place] 3829370 [facility] [id number] Neutrophils (Bld) [#/Vol] 7.4 10*3/uL Abnormal 1.4-7.0 [facility]; [facility] Work Phone: Neutrophils Auto #/vol (Bld) 7.4 {x10E3/uL} Abnormal 1.4-7.0 [facility] Work Phone: Neutrophils/100 WBC (Bld) 67 % Normal [facility] Work Phone: Comment on above: PATIENT WAS FASTINGP ERFORMED BY: PORSHA [place] 3829370 [facility] [id number] Neutrophils/100 WBC Auto (Bld) 67 % Normal [facility] Work Phone: Platelets #/vol (Bld) 285 {x10E3/uL} Normal 150-379 [facility] Work Phone: Comment on above: PATIENT WAS FASTINGP ERFORMED BY: [place] 0126270 [facility] [id number] Platelets (Bld) [#/Vol] 285 10*3/uL Normal 150-379 [facility]; [facility] Work Phone: Platelets Auto #/vol (Bld) 285 {x10E3/uL} Normal 150-379 [facility] Work Phone: RBC #/vol (Bld) 4.72 {x10E6/uL} Normal 4.14-5.80 [facility] Work Phone: Comment on above: PATIENT WAS FASTINGP ERFORMED BY: PORSHA Manning6370 [facility] [id number] RBC (Bld) [#/Vol] 4.72 10*6/uL Normal 4.14-5.80 [facility]erens[facility]; [facility] Work Phone: RBC Auto #/vol (Bld) 4.72 {x10E6/uL} Normal 4.14-5.80 [facility] Work Phone: WBC #/vol (Bld) 11.2 {x10E3/uL} Abnormal 3.4-10.8 [facility] Work Phone: Comment on above: PATIENT WAS FASTINGP ERFORMED BY: PORSHA Fixya Prgdaa9318 [facility] [id number] WBC (Bld) [#/Vol] 11.2 10*3/uL Abnormal 3.4-10.8 [facility] Internal Medicine; [facility] Work Phone: WBC Auto #/vol (Bld) 11.2 {x10E3/uL} Abnormal 3.4-10.8 [facility] Internal Medicine Work Phone: HGB A1C ([id number])Ordered By: S ystem Welcome Desk Agent on 08-30-2016 Hemoglobin A1c/Hemoglobin.total mass fraction (Bld) 5.9 % Abnormal 4.8-5.6 Comprehensiv e Internal Medicine Work Phone: Comment on above: . Pre-diabetes: 5.7 - 6.4 Diabetes: >6.4 Glycemic control for adults with diabetes: <7.0 PATIENT WAS FASTINGP ERFORMED BY: PORSHA OpenetKeaton Wapybx7556 [facility] [id number] LIPID PANEL ([id number])Ordered B y: .Net Developer on 08-30-2016 Cholesterol in HDL mass conc 53 mg/dL Normal [facility] Work Phone: Comment on above: PATIENT WAS FASTINGP ERFORMED BY: PORSHA Rivero Rtulzw2487 [address] [facility] [place] [id number] Cholesterol in LDL mass conc 119 mg/dL Abnormal 0-99 [facility] Work Phone: Comment on above: PATIENT WAS FASTINGP ERFORMED BY: PORSHA LabPaul Ynbpde3853 [address] [facility] [id number] Cholesterol in LDL/Cholesterol in HDL mass ratio 2.2 {ratio_units} Normal 0.0-3.6 [facility] Work Phone: Comment on above: LDL/HDL Ratio Men Wo men 1/2 Avg.Risk 1.0 1.5 Avg.Risk 3.6 3.2 2X Avg.Risk 6.2 5.0 3X Avg.Risk 8.0 6.1 PATIENT WAS FASTINGP ERFORMED BY: PORSHA LabPaul Zttgjl1319 [facility] [id number] Cholesterol in VLDL mass conc 14 mg/dL Normal 5-40 [facility] Work Phone: Comment on above: PATIENT WAS FASTINGP ERFORMED BY: PORSHA LabWalter P. Reuther Psychiatric Hospital6370 [facility] [id number] Cholesterol mass conc 186 mg/dL Normal 100-199 Com prehensive Internal Medicine Work Phone: Comment on above: PATIENT WAS FASTINGP ERFORMED BY: PORSHA LabPaul Sefcan4392 [facility] [id number] Triglyceride mass conc 72 mg/dL Normal 0-149 [facility] centerensive Internal Medicine Work Phone: Comment on above: PATIENT WAS FASTINGP ERFORMED BY: PORSHA LabCo Qosnjf8365 [facility] [place] [id number] METABOLIC PANEL, COMPREHENSI VE ([id number])Ordered By: .Net Developer on 08-30-2016 Albumin mass conc 4.9 g/dL Normal 3.5-5.5 Compreh ensintermountain medical center Internal Medicine Work Phone: Comment on above: PATIENT WAS FASTINGP ERFORMED BY: PORSHA LabCo Ksxoqs8250 [address] [facility] [place] [id number] Albumin/Globulin mass ratio 2.3 {ratio} Abnormal 1.2-2.2 [facility] Internal Medicine Work Phone: Comment on above: PATIENT WAS FASTINGP ERFORMED BY: PORSHA [facility] Nrwhkv9630 [address] Roadblin [place] [id number] ALP [Catalytic activity/Vol] 60 U/L Normal 39-117 [facility]; [facility] Internal Medicine Work Phone: ALP enzyme act/vol 60 [iU]/L Normal 39-117 [facility] Internal Medicine Work Phone: Comment on above: PATIENT WAS FASTINGP ERFORMED BY: PORSHA LabCo Hypiqb0996 [address] RoadNovant Health Huntersville Medical Centerin [place] [id number] ALT [Catalytic activity/Vol] 40 U/L Normal 0-44 [facility]; [facility] Internal Medicine Work Phone: ALT enzyme act/vol 40 [iU]/L Normal 0-44 [facility] Internal Medicine Work Phone: Comment on above: PATIENT WAS FASTINGP ERFORMED BY: PORSHA LabCitizens Memorial Healthcare Hikaiu6449 [address] RoadNovant Health Huntersville Medical Centerin [place] [id number] AST [Catalytic activity/Vol] 43 U/L Abnormal 0-40 [facility]; [facility] Internal Medicine Work Phone: AST enzyme act/vol 43 [iU]/L Abnormal 0-40 [facility] Internal Medicine Work Phone: Comment on above: PATIENT WAS FASTINGP ERFORMED BY: LabCitizens Memorial Healthcare Bibvvr8516 [address] [facility] [place] [id number] Bilirubin mass conc 0.6 mg/dL Normal 0.0-1.2 [facility] Internal Medicine Work Phone: Comment on above: PATIENT WAS FASTINGP ERFORMED BY: [facility] Zjhadq9511 [address] RoadDublin [place] [id number] Calcium mass conc 9.7 mg/dL Normal 8.7-10.2 [facility] Internal Medicine Work Phone: Comment on above: PATIENT WAS FASTINGP ERFORMED BY: [facility] Grhpvn6851 [address] Roadblin [place] [id number] Chloride molar conc 99 mmol/L Normal 96-106 Compr ensive Internal Medicine Work Phone: Comment on above: PATIENT WAS FASTINGP ERFORMED BY: PORSHA LabKeaton Zbdgws0954 [address] Roadblin [place] [id number] CO2 molar conc 24 mmol/L Normal 18-29 Comprehens olivia Internal Medicine Work Phone: Comment on above: PATIENT WAS FASTINGP ERFORMED BY: PORSHA [facility] Cirgkj5342 [address] RoadNovant Health Huntersville Medical Centerin [place] [id number] Creatinine mass conc 1.05 mg/dL Normal 0.76-1.27 Comp grant hospitalensive Internal Medicine Work Phone: Comment on above: PATIENT WAS FASTINGP ERFORMED BY: PORSHA LabKeaton SalazarUghwwu[address] [facility] [id number] GFR/1.73 sq M predicted among blacks CKD-EPI vol rate/area (S/P/Bld) 96 mL/min/1.73 Normal [facility] Work Phone: Comment on above: PATIENT WAS FASTINGP ERFORMED BY: PORSHA LabPaulrp Rwiaez6157 [address] RoadNovant Health Huntersville Medical Centerin [place] [id number] GFR/1.73 sq M predicted among non-blacks CKD-EPI vol rate/area (S/P/Bld) 83 mL/min/1.73 Normal Comprehensiv e Internal Medicine Work Phone: Comment on above: PATIENT WAS FASTINGP ERFORMED BY: PORSHA Salazarlin6370 [address] [facility] [id number] Globulin Calculated mass conc (S) 2.1 g/dL Normal 1.5-4.5 [facility] Work Phone: Globulin mass conc (S) 2.1 g/dL Normal 1.5-4.5 Co [facility] Internal Medicine Work Phone: Comment on above: PATIENT WAS FASTINGP ERFORMED BY: PORSHA [facility] Ocaoew[address] [facility] Hospitalblin [place] [id number] Glucose mass conc 65 mg/dL Normal 65-99 Compreh ensive Internal Medicine Work Phone: Comment on above: PATIENT WAS FASTINGP ERFORMED BY: CB [facility] Yxgbhk4798 [address] RoadDublin [place] [id number] Potassium molar conc 4.5 mmol/L Normal 3.5-5.2 Comp rehensive Internal Medicine Work Phone: Comment on above: PATIENT WAS FASTINGP ERFORMED BY: PORSHA [facility] Rbducl2793 [address] RoadDublin [place] [id number] Protein mass conc 7.0 g/dL Normal 6.0-8.5 Compreh ensive Internal Medicine Work Phone: Comment on above: PATIENT WAS FASTINGP ERFORMED BY: PORSHA [facility] Zfyhxj8105 [address] RoadDublin [place] [id number] Sodium molar conc 140 mmol/L Normal 134-144 Compreh ensive Internal Medicine Work Phone: Comment on above: PATIENT WAS FASTINGP ERFORMED BY: PORSHA [facility] Cvvlkl9382 [address] RoadDuin [place] [id number] Urea nitrogen mass conc 23 mg/dL Normal 6-24 [facility] Work Phone: Comment on above: PATIENT WAS FASTINGP ERFORMED BY: PORSHA LabCo Xhroqp9554 [address] RoadDublin [place] [id number] Urea nitrogen/Creatinine mass ratio 22 mg/mg Abnormal 9-20 [facility] Work Phone: Comment on above: PATIENT WAS FASTINGP ERFORMED BY: PORSHA LabCo Tkuivo[address] [facility]in [place] [id number] MICROALBUMINOrdered By: Syst em Welcome Desk Agent on 08-30-2016 Albumin DL <= 20 mg/L (U) [Mass/Vol] mg/dL Normal [facility]; [facility] Work Phone: Albumin DL <= 20 mg/L mass conc (U) mg/dL Normal [facility] Work Phone: Comment on above: PATIENT WAS FASTINGP ERFORMED BY: PORSHA [facility] Uuatfq0839 [address] RoadDublin [place] [id number] Albumin/Creatinine mass ratio (U) <4.4 Normal 0.0-30.0 [facility] Work Phone: Comment on above: PATIENT WAS FASTINGP ERFORMED BY: Fixya Owsahy2974 [facility] [id number] Creatinine mass conc (U) 68.4 mg/dL Normal [facility] Work Phone: Comment on above: PATIENT WAS FASTINGP ERFORMED BY: FanIQ6370 [facility] [id number] PSA (PROSTATE SPECIFIC ANTIG EN) (V76.44)Ordered By: .Net Developer on 08-30-2016 Prostate specific Ag mass conc 0.6 ng/mL Normal 0.0-4.0 [facility] Work Phone: Comment on above: Zinch ECLIA methodol ogy. .According to the [place] [employer], Serum PSA shoulddecrease and remain at undetectable levels after radicalprostatectomy. The AUA defines biochemical recurrence as an initialPSA value 0.2 ng/mL or greater followed by a subsequent confirmatoryPSA value 0.2 ng/mL or greater.Values obtained with different assay methods or kits cannot be usedinterchangeably. Results cannot be interpreted as absolute evidenceof the presence or absence of malignant disease. PATIENT WAS FASTINGP ERFORMED BY: FanIQ6370 [facility] [id number] TSH (THYROID STIMULATING HOR THEODORE) ([id number])Ordered By: .Net Developer on 08-30-2016 Thyrotropin Qn 1.920 {uIU/mL} Normal 0.450-4.500 Compr [facility] Internal Medicine Work Phone: Comment on above: PATIENT WAS FASTINGP ERFORMED BY: Fixya Wtlubs9483 [facility] [id number] Rapid Flu (34746 x 2)Ordered By: Heladio Jacob on 04-26-2016 FLUAV Ag IA Ql (Throat) positve a, neg b Normal [facility] Work Phone: CALCIFEDIOL (22153)Ordered B y: .Net Developer on 12-22-2015 25-Hydroxyvitamin D2+25-Hydroxyvitamin D3 mass conc 34.6 ng/mL Normal 30.0-100.0 [facility] Work Phone: Comment on above: Vitamin D deficiency has been defined by the [place] ofMedicine and an Endocrine Society practice guideline as alevel of serum 25-OH vitamin D less than 20 ng/mL (1,2).The Endocrine Society went on to further define vitamin Dinsufficiency as a level between 21 and 29 ng/mL (2).1. IOM ([place] of Medicine). 2010. Dietary reference intakes for calcium and D. Ramachandran [place]: The National Academies Press.2. Hortencia MF, Bianca JONES, Rosenda AREVALO, et al. Evaluation, treatment, and prevention of vitamin D deficiency: an Endocrine Society clinical practice guideline. JCEM. 2010; 96(7):1911-30. PATIENT WAS FASTINGP ERFORMED BY: Choice[employer]70 [employer] [place] [id number] HGB A1C (92383)Ordered By: S ystem Welcome Desk Agent on 12-22-2015 Hemoglobin A1c/Hemoglobin.total mass fraction (Bld) 5.8 % Abnormal 4.8-5.6 Comprehensiv e Internal Medicine Work Phone: Comment on above: . Pre-diabetes: 5.7 - 6.4 Diabetes: >6.4 Glycemic control for adults with diabetes: <7.0 PATIENT WAS FASTINGP ERFORMED BY: FanIQ6370 [employer]bl[employer] [place] [id number] LIPID PANEL (30605)Ordered B y: .Net Developer on 12-22-2015 Cholesterol in HDL mass conc 43 mg/dL Normal [facility] Work Phone: Comment on above: According to ATP-III Guidelines, HDL-C >59 mg/dL is considered anegative risk factor for CHD. PATIENT WAS FASTINGP ERFORMED BY: Vusion Barvhf3334 FORMA Therapeuticsin [place] [id number] Cholesterol in LDL mass conc 127 mg/dL Abnormal 0-99 [facility] Work Phone: Comment on above: PATIENT WAS FASTINGP ERFORMED BY: Vusion Jzdlup4653 [employer] Solutionsblin [place] [id number] Cholesterol in LDL/Cholesterol in HDL mass ratio 3.0 {ratio_units} Normal 0.0-3.6 [facility] Work Phone: Comment on above: LDL/HDL Ratio Men Wo men 1/2 Avg.Risk 1.0 1.5 Avg.Risk 3.6 3.2 2X Avg.Risk 6.2 5.0 3X Avg.Risk 8.0 6.1 PATIENT WAS FASTINGP ERFORMED BY: PORSHA [facility] Lcunlf[address] [employer]in [place] [id number] Cholesterol in VLDL mass conc 26 mg/dL Normal 5-40 [facility] Work Phone: Comment on above: PATIENT WAS FASTINGP ERFORMED BY: PORSHA [facility] Xqqdrd0736 [address] [employer]in [place] [id number] Cholesterol mass conc 196 mg/dL Normal 100-199 Com prehensive Internal Medicine Work Phone: Comment on above: PATIENT WAS FASTINGP ERFORMED BY: PORSHA LabColewis SalazarNpgadj0918 [address] [employer] [id number] Triglyceride mass conc 130 mg/dL Normal 0-149 Co [facility] hospitalehensive Internal Medicine Work Phone: Comment on above: PATIENT WAS FASTINGP ERFORMED BY: PORSHA [facility] Kbjnqg0591 [address] [facility]in [place] [id number] METABOLIC PANEL, COMPREHENSI VE (39250)Ordered By: .Net Developer on 12-22-2015 Albumin mass conc 4.5 g/dL Normal 3.5-5.5 Compreh ensive Internal Medicine Work Phone: Comment on above: PATIENT WAS FASTINGP ERFORMED BY: PORSHA [facility] Pybfvu7116 [address] [facility]in [place] [id number] Albumin/Globulin mass ratio 2.0 {ratio} Normal 1.1-2.5 [facility] Work Phone: Comment on above: PATIENT WAS FASTINGP ERFORMED BY: PORSHA [facility] Curegs1986 [address] [facility]in [place] [id number] ALP [Catalytic activity/Vol] 60 U/L Normal 39-117 [facility]; [facility] Work Phone: ALP enzyme act/vol 60 [iU]/L Normal 39-117 Compre hensintermountain medical center Internal Medicine Work Phone: Comment on above: PATIENT WAS FASTINGP ERFORMED BY: PORSHA [facility] Pozzav7697 [address] RoadDublin [place] [id number] ALT [Catalytic activity/Vol] 35 U/L Normal 0-44 [facility]; [facility] Internal Medicine Work Phone: ALT enzyme act/vol 35 [iU]/L Normal 0-44 [facility] Internal Medicine Work Phone: Comment on above: PATIENT WAS FASTINGP ERFORMED BY: PORSHA [facility] Oovrcg3023 [address] RoadNovant Health Huntersville Medical Centerin [place] [id number] AST [Catalytic activity/Vol] 40 U/L Normal 0-40 [facility]; [facility] Internal Medicine Work Phone: AST enzyme act/vol 40 [iU]/L Normal 0-40 [facility] Internal Medicine Work Phone: Comment on above: PATIENT WAS FASTINGP ERFORMED BY: PORSHA [facility] Kcimsr1169 [address] [facility] [id number] Bilirubin mass conc 0.4 mg/dL Normal 0.0-1.2 [facility] Internal Medicine Work Phone: Comment on above: PATIENT WAS FASTINGP ERFORMED BY: PORSHA [facility] Kbqfgc7[address] [facility] [place] [id number] Calcium mass conc 9.7 mg/dL Normal 8.7-10.2 Compreh [facility] centerive Internal Medicine Work Phone: Comment on above: PATIENT WAS FASTINGP ERFORMED BY: CB [facility] Ojzshy[address] [facility] [id number] Chloride molar conc 100 mmol/L Normal 97-108 Compr ensive Internal Medicine Work Phone: Comment on above: PATIENT WAS FASTINGP ERFORMED BY: CB [facility] Citwph6428 [address] [facility] HospitalDublin [place] [id number] CO2 molar conc 23 mmol/L Normal 18-29 Comprehens olivia Internal Medicine Work Phone: Comment on above: PATIENT WAS FASTINGP ERFORMED BY: CB [facility] Akhkcp0286 [facility] [id number] Creatinine mass conc 1.12 mg/dL Normal 0.76-1.27 Comp rehensive Internal Medicine Work Phone: Comment on above: PATIENT WAS FASTINGP ERFORMED BY: PORSHA LabCo Ppxttk4679 [address] [facility] [id number] GFR/1.73 sq M predicted among blacks CKD-EPI vol rate/area (S/P/Bld) 89 mL/min/1.73 Normal [facility] Work Phone: Comment on above: PATIENT WAS FASTINGP ERFORMED BY: LabWalter P. Reuther Psych[facility] Hospital6370 [facility] [id number] GFR/1.73 sq M predicted among non-blacks CKD-EPI vol rate/area (S/P/Bld) 77 mL/min/1.73 Normal Comprehensiv e Internal Medicine Work Phone: Comment on above: PATIENT WAS FASTINGP ERFORMED BY: LabSaint John'S Health SystemDscbvi1927 [facility] [id number] Globulin Calculated mass conc (S) 2.2 g/dL Normal 1.5-4.5 [facility] Work Phone: Globulin mass conc (S) 2.2 g/dL Normal 1.5-4.5 Co [facility] centerensive Internal Medicine Work Phone: Comment on above: PATIENT WAS FASTINGP ERFORMED BY: LabCitizens [facility] Tqpskb6351 [facility] [id number] Glucose mass conc 80 mg/dL Normal 65-99 Compreh ensive Internal Medicine Work Phone: Comment on above: PATIENT WAS FASTINGP ERFORMED BY: LabCo Qzzsiu0315 [facility]in [place] [id number] Potassium molar conc 4.2 mmol/L Normal 3.5-5.2 Comp rehensive Internal Medicine Work Phone: Comment on above: PATIENT WAS FASTINGP ERFORMED BY: LabCo Gsszic3344 [facility] [id number] Protein mass conc 6.7 g/dL Normal 6.0-8.5 Compreh ensive Internal Medicine Work Phone: Comment on above: PATIENT WAS FASTINGP ERFORMED BY: PORSHA [facility] Bkgajf7649 [address] [facility]blin [place] [id number] Sodium molar conc 141 mmol/L Normal 134-144 Compreh ensive Internal Medicine Work Phone: Comment on above: PATIENT WAS FASTINGP ERFORMED BY: PORSHA [facility] Qctdwi4926 [address] [facility]in [place] [id number] Urea nitrogen mass conc 14 mg/dL Normal 6-24 [facility] Work Phone: Comment on above: PATIENT WAS FASTINGP ERFORMED BY: PORSHA [facility] Qmuobj9487 [address] [facility]in [place] [id number] Urea nitrogen/Creatinine mass ratio 13 mg/mg Normal 9-20 [facility] Work Phone: Comment on above: PATIENT WAS FASTINGP ERFORMED BY: PORSHA LabCitizens [facility] Healthcare Lwgbmu3998 [facility] [id number] MICROALBUMINOrdered By: Syst em Welcome Desk Agent on 12-22-2015 Albumin DL <= 20 mg/L mass conc (U) 4.2 ug/mL Normal [facility] Work Phone: Comment on above: PATIENT WAS FASTINGP ERFORMED BY: PORSHA LabPaul Bfqolb6008 [facility] [id number] Albumin/Creatinine mass ratio (U) 2.4 {mg/g_creat} Normal 0.0-30.0 [facility] Work Phone: Comment on above: PATIENT WAS FASTINGP ERFORMED BY: PORSHA LabCitizens [facility] Healthcare Ejxyan4[address] [facility] [place] [id number] Creatinine mass conc (U) 172.8 mg/dL Normal [facility] Work Phone: Comment on above: PATIENT WAS FASTINGP ERFORMED BY: PORSHA [facility] Mjrhla9883 [address] [facility]blin [place] [id number] Microscopic ExaminationOrder ed By: .Net Developer on 12-22-2015 Bacteria LM.HPF #/area (Urine sed) None seen Normal [facility] Work Phone: Comment on above: PATIENT WAS FASTINGP ERFORMED BY: PORSHA [facility] Jifkpz1597 [address] RoadDublin [place] [id number] Epithelial cells LM.HPF #/area (Urine sed) 0-10 Normal 0 - 10 [facility] Work Phone: Comment on above: PATIENT WAS FASTINGP ERFORMED BY: PORSHA [facility] Xbovzg3222 [address] RoadDublin [place] [id number] Mucus LM Ql (Urine sed) Present Normal [facility] Work Phone: Mucus Ql (Urine sed) Present Normal Comp rehensive Internal Medicine Work Phone: Comment on above: PATIENT WAS FASTINGP ERFORMED BY: PORSHA [facility] Ittywy1320 [address] RoadDublin [place] [id number] RBC LM.HPF #/area (Urine sed) 0-2 Normal 0 - 2 [facility] Work Phone: Comment on above: PATIENT WAS FASTINGP ERFORMED BY: PORSHA [facility] Tboboj2102 [address] RoadDublin [place] [id number] WBC LM.HPF #/area (Urine sed) 0-5 Normal 0 - 5 [facility] Work Phone: Comment on above: PATIENT WAS FASTINGP ERFORMED BY: PORSHA [facility] Xmafmu5333 [address] RoadDublin [place] [id number] TSH ([id number])Ordered By: Syste m Welcome Desk Agent on 12-22-2015 Thyrotropin Qn 2.590 {uIU/mL} Normal 0.450-4.500 Compr ehensive Internal Medicine Work Phone: Comment on above: PATIENT WAS FASTINGP ERFORMED BY: CB [facility] Rlheds0553 [address] RoadDublin [place] [id number] URINALYSIS, W/ MICRO ([id number]) Ordered By: .Net Developer on 12-22-2015 Appearance Nom (U) Clear Normal Compre hensive Internal Medicine Work Phone: Comment on above: PATIENT WAS FASTINGP ERFORMED BY: CB [facility] Imktgv4963 [address] RoadDublin [place] [id number] Bilirubin Ql (U) Negative Normal Comprehe nsive Internal Medicine Work Phone: Comment on above: PATIENT WAS FASTINGP ERFORMED BY: PORSHA LabKeaton SalazarLignzb7320 [address] RoadDublin [place] [id number] Bilirubin Ql (U) Negative Normal Comprehe nsive Internal Medicine; [facility] Work Phone: Color Nom (U) Yellow Normal Comprehensi ve Internal Medicine Work Phone: Comment on above: PATIENT WAS FASTINGP ERFORMED BY: PORSHA LabPaulrp Hbwxqt4113 [address] RoadDublin [place] [id number] Glucose Ql (U) Negative Normal Comprehens olivia Internal Medicine Work Phone: Comment on above: PATIENT WAS FASTINGP ERFORMED BY: PORSHA LabKeaton SalazarPsjjih7061 [address] RoadDublin [place] [id number] Glucose Ql (U) Negative Normal Comprehens olivia Internal Medicine; [facility] Work Phone: Hemoglobin Ql (U) Negative Normal Compreh ensive Internal Medicine Work Phone: Comment on above: PATIENT WAS FASTINGP ERFORMED BY: PORSHA LabKeaton SalazarWbeawr7049 [address] RoadDublin [place] [id number] Hemoglobin Ql (U) Negative Normal Compreh ensive Internal Medicine; [facility] Work Phone: Hemoglobin Test strip Ql (U) Negative Normal [facility] Work Phone: Ketones Ql (U) Negative Normal Comprehens olivia Internal Medicine Work Phone: Comment on above: PATIENT WAS FASTINGP ERFORMED BY: PORSHA LabCo Ugwwpu0269 [address] RoadDublin [place] [id number] Ketones Ql (U) Negative Normal Comprehens olivia Internal Medicine; [facility] Work Phone: Leukocyte esterase Test strip Ql (U) Negative Normal [facility] Work Phone: Comment on above: PATIENT WAS FASTINGP ERFORMED BY: PORSHA LabKeaton SalazarGwymdu0623 [address] RoadDublin [place] [id number] Leukocyte esterase Test strip Ql (U) Negative Normal [facility]; [facility] Work Phone: Microscopic observation LM Nom (Urine sed) MICRON Normal [facility] Work Phone: Comment on above: Microscopic follows if indicated. PATIENT WAS FASTINGP ERFORMED BY: PORSHA LabColewis Yvxjhn9[address] [facility]blin [place] [id number] Microscopic observation LM Nom (Urine sed) See below: Normal [facility] Work Phone: Comment on above: Microscopic was lisa cated and was performed. PATIENT WAS FASTINGP ERFORMED BY: PORSHA LabCitizens [facility] Healthcare Lvjyub9775 [address] [facility] [id number] Nitrite Ql (U) Negative Normal Comprehens olivia Internal Medicine Work Phone: Comment on above: PATIENT WAS FASTINGP ERFORMED BY: PORSHA Salazarlin6370 [facility] [id number] Nitrite Ql (U) Negative Normal Comprehens olivia Internal Medicine; [facility] Work Phone: Nitrite Test strip Ql (U) Negative Normal [facility] Work Phone: pH (U) 7.5 [pH] Normal 5.0-7.5 [facility] Work Phone: Comment on above: PATIENT WAS FASTINGP ERFORMED BY: PORSHA Salazarlin6370 [facility] [id number] pH Test strip (U) 7.5 [pH] Normal 5.0-7.5 Compreh ensive Internal Medicine Work Phone: Protein Ql (U) Trace Normal Comprehens olivia Internal Medicine Work Phone: Comment on above: PATIENT WAS FASTINGP ERFORMED BY: PORSHA LabCit[facility] Healthcare Wmodjo5532 [address] [facility] [id number] Protein Test strip Ql (U) Trace Normal [facility] Work Phone: Specific gravity Relative Density (U) 1.024 1 Normal 1.005-1.030 Comprehensi ve Internal Medicine Work Phone: Comment on above: PATIENT WAS FASTINGP ERFORMED BY: PORSHA LabCo Mzbxfb5572 [facility] [id number] Urobilinogen (U) [Mass/Vol] 0.2 mg/dL Normal 0.2-1.0 [facility]; [facility] Work Phone: Urobilinogen Test strip mass conc (U) 0.2 mg/dL Normal 0.2-1.0 Comprehensiv e Internal Medicine Work Phone: Comment on above: PATIENT WAS FASTINGP ERFORMED BY: PORSHA Manning6370 [facility] [id number] CBC WITH MANUAL DIFF ([id number]) Ordered By: .Net Developer on 12-04-2015 Basophils #/vol (Bld) 0.0 {x10E3/uL} Normal 0.0-0.2 [facility] Work Phone: Comment on above: PATIENT NOT FASTINGP ERFORMED BY: PORSHA Salazarlin6370 [facility] [id number] Information: [id number] Basophils (Bld) [#/Vol] 0.0 10*3/uL Normal 0.0-0.2 [facility]; [facility] Work Phone: Basophils Auto #/vol (Bld) 0.0 {x10E3/uL} Normal 0.0-0.2 [facility] Work Phone: Basophils/100 WBC (Bld) 0 % Normal [facility] Work Phone: Comment on above: PATIENT NOT FASTINGP ERFORMED BY: PORSHA Salazarlin6370 [facility] [id number] Information: [id number] Basophils/100 WBC Auto (Bld) 0 % Normal [facility] Work Phone: Eosinophils #/vol (Bld) 0.3 {x10E3/uL} Normal 0.0-0.4 [facility] Work Phone: Comment on above: PATIENT NOT FASTINGP ERFORMED BY: PORSHA [facility] HospitalPaul Mtasln7664 [facility] [id number] Information: [id number] Eosinophils (Bld) [#/Vol] 0.3 10*3/uL Normal 0.0-0.4 [facility]; [facility] Work Phone: Eosinophils Auto #/vol (Bld) 0.3 {x10E3/uL} Normal 0.0-0.4 [facility] Work Phone: Eosinophils/100 WBC (Bld) 4 % Normal [facility] Work Phone: Comment on above: PATIENT NOT FASTINGP ERFORMED BY: PORSHA [facility] Eppewp9708 [address] Shopping MailAtrium Health Waxhaw [id number] Information: [id number] Eosinophils/100 WBC Auto (Bld) 4 % Normal [facility] Work Phone: Erythrocyte distribution width Auto Ratio (RBC) 13.5 % Normal 12.3-15.4 [facility] Work Phone: Erythrocyte distribution width Ratio (RBC) 13.5 % Normal 12.3-15.4 [facility] Work Phone: Comment on above: PATIENT NOT FASTINGP ERFORMED BY: [facility] Duvzhp1125 [facility] [id number] Information: [id number] Hematocrit Auto Volume Fraction (Bld) 42.0 % Normal 37.5-51.0 [facility] Work Phone: Hematocrit Volume Fraction (Bld) 42.0 % Normal 37.5-51.0 [facility] Work Phone: Comment on above: PATIENT NOT FASTINGP ERFORMED BY: CB [facility] Veqsfw3098 [facility] [id number] Information: [id number] Hemoglobin mass conc (Bld) 14.3 g/dL Normal 12.6-17.7 [facility] Work Phone: Comment on above: PATIENT NOT FASTINGP ERFORMED BY: [facility] Piyhuy7148 [address] [facility] [id number] Information: [id number] Immature granulocytes #/vol (Bld) 0.0 {x10E3/uL} Normal 0.0-0.1 [facility] Work Phone: Comment on above: PATIENT NOT FASTINGP ERFORMED BY: PORSHA GualbertoKeaton Spjdwm8296 [facility] [id number] Information: [id number] Immature granulocytes (Bld) [#/Vol] 0.0 10*3/uL Normal 0.0-0.1 [facility]; [facility] Work Phone: Immature granulocytes/100 WBC (Bld) 0 % Normal [facility] Work Phone: Comment on above: PATIENT NOT FASTINGP ERFORMED BY: PORSHA Salazarlin6370 [facility] [id number] Information: [id number] Lymphocytes #/vol (Bld) 3.8 {x10E3/uL} Abnormal 0.7-3.1 [facility] Work Phone: Comment on above: PATIENT NOT FASTINGP ERFORMED BY: PORSHA [place] 3829370 [facility] [id number] Information: [id number] Lymphocytes (Bld) [#/Vol] 3.8 10*3/uL Abnormal 0.7-3.1 [facility]; [facility] Work Phone: Lymphocytes Auto #/vol (Bld) 3.8 {x10E3/uL} Abnormal 0.7-3.1 [facility] Work Phone: Lymphocytes/100 WBC (Bld) 42 % Normal [facility] Work Phone: Comment on above: PATIENT NOT FASTINGP ERFORMED BY: PORSHA [place] 3829370 [facility] [id number] Information: [id number] Lymphocytes/100 WBC Auto (Bld) 42 % Normal [facility] Work Phone: MCH Auto Entitic mass (RBC) 31.7 pg Normal 26.6-33.0 [facility] Work Phone: MCH Entitic mass (RBC) 31.7 pg Normal 26.6-33.0 Co mprensive Internal Medicine Work Phone: Comment on above: PATIENT NOT FASTINGP ERFORMED BY: [place] 0126270 [facility] [id number] Information: [id number] MCHC Auto mass conc (RBC) 34.0 g/dL Normal 31.5-35.7 [facility] Work Phone: MCHC mass conc (RBC) 34.0 g/dL Normal 31.5-35.7 [facility] Internal Medicine Work Phone: Comment on above: PATIENT NOT FASTINGP ERFORMED BY: [place] 0126270 [facility] [id number] Information: [id number] MCV Auto Entitic volume (RBC) 93 fL Normal 79-97 [facility] Work Phone: MCV Entitic volume (RBC) 93 fL Normal 79-97 [facility] Work Phone: Comment on above: PATIENT NOT FASTINGP ERFORMED BY: [place] 0126270 [facility] [id number] Information: [id number] Monocytes #/vol (Bld) 0.9 {x10E3/uL} Normal 0.1-0.9 [facility] Work Phone: Comment on above: PATIENT NOT FASTINGP ERFORMED BY: [place] 0126270 [facility] [id number] Information: [id number] Monocytes (Bld) [#/Vol] 0.9 10*3/uL Normal 0.1-0.9 [facility]; [facility] Work Phone: Monocytes Auto #/vol (Bld) 0.9 {x10E3/uL} Normal 0.1-0.9 [facility] Work Phone: Monocytes/100 WBC (Bld) 9 % Normal [facility] Work Phone: Comment on above: PATIENT NOT FASTINGP ERFORMED BY: PORSHA LabColewis SalazarEccnid7743 [facility] [id number] Information: [id number] Monocytes/100 WBC Auto (Bld) 9 % Normal [facility] Work Phone: Neutrophils #/vol (Bld) 4.1 {x10E3/uL} Normal 1.4-7.0 [facility] Work Phone: Comment on above: PATIENT NOT FASTINGP ERFORMED BY: PORSHA LabCo Secpxc5081 [facility] [id number] Information: [id number] Neutrophils (Bld) [#/Vol] 4.1 10*3/uL Normal 1.4-7.0 [facility]; [facility] Work Phone: Neutrophils Auto #/vol (Bld) 4.1 {x10E3/uL} Normal 1.4-7.0 [facility] Work Phone: Neutrophils/100 WBC (Bld) 45 % Normal [facility] Work Phone: Comment on above: PATIENT NOT FASTINGP ERFORMED BY: PORSHA GualbertoColewis SalazarUtrzrz5026 [facility] [id number] Information: [id number] Neutrophils/100 WBC Auto (Bld) 45 % Normal [facility] Work Phone: Platelets #/vol (Bld) 276 {x10E3/uL} Normal 150-379 [facility] Work Phone: Comment on above: PATIENT NOT FASTINGP ERFORMED BY: PORSHA [facility] Fwvces9756 [facility] [id number] Information: [id number] Platelets (Bld) [#/Vol] 276 10*3/uL Normal 150-379 [facility]; [facility] Work Phone: Platelets Auto #/vol (Bld) 276 {x10E3/uL} Normal 150-379 [facility] Work Phone: RBC #/vol (Bld) 4.51 {x10E6/uL} Normal 4.14-5.80 [facility] Internal Medicine Work Phone: Comment on above: PATIENT NOT FASTINGP ERFORMED BY: FixyaRobert Wood Johnson University Hospital at RahwayDsfhfe4072 [facility] [id number] Information: [id number] RBC (Bld) [#/Vol] 4.51 10*6/uL Normal 4.14-5.80 [facility] Internal Medicine; [facility] Work Phone: RBC Auto #/vol (Bld) 4.51 {x10E6/uL} Normal 4.14-5.80 [facility] Internal Medicine Work Phone: WBC #/vol (Bld) 9.2 {x10E3/uL} Normal 3.4-10.8 [facility] Internal Medicine Work Phone: Comment on above: PATIENT NOT FASTINGP ERFORMED BY: FixyaSarah Ville 8782170 [facility] [id number] Information: [id number] WBC (Bld) [#/Vol] 9.2 10*3/uL Normal 3.4-10.8 [facility] Internal Medicine; [facility] Work Phone: WBC Auto #/vol (Bld) 9.2 {x10E3/uL} Normal 3.4-10.8 [facility] Internal Medicine Work Phone: CBC W/AUTO DIFF WBC (55023)O rdered By: .Net Developer on 06-09-2015 Basophils #/vol (Bld) 0.0 {x10E3/uL} Normal 0.0-0.2 [facility] Internal Medicine Work Phone: Comment on above: PATIENT WAS FASTINGP ERFORMED BY: [place] 0126270 [facility] [id number] Information: [id number] Basophils (Bld) [#/Vol] 0.0 10*3/uL Normal 0.0-0.2 [facility]; [facility] Work Phone: Basophils Auto #/vol (Bld) 0.0 {x10E3/uL} Normal 0.0-0.2 [facility] Work Phone: Basophils/100 WBC (Bld) 0 % Normal [facility] Work Phone: Comment on above: PATIENT WAS FASTINGP ERFORMED BY: FixyaRobert Wood Johnson University Hospital at RahwayCigfua8387 [facility] [id number] Information: [id number] Basophils/100 WBC Auto (Bld) 0 % Normal [facility] Work Phone: Eosinophils #/vol (Bld) 0.2 {x10E3/uL} Normal 0.0-0.4 [facility] Work Phone: Comment on above: PATIENT WAS FASTINGP ERFORMED BY: FixyaRobert Wood Johnson University Hospital at RahwayKoqfzb3931 [facility] [id number] Information: [id number] Eosinophils (Bld) [#/Vol] 0.2 10*3/uL Normal 0.0-0.4 [facility]; [facility] Work Phone: Eosinophils Auto #/vol (Bld) 0.2 {x10E3/uL} Normal 0.0-0.4 [facility] Work Phone: Eosinophils/100 WBC (Bld) 2 % Normal [facility] Work Phone: Comment on above: PATIENT WAS FASTINGP ERFORMED BY: [place] 0126270 [facility] [id number] Information: [id number] Eosinophils/100 WBC Auto (Bld) 2 % Normal [facility] Work Phone: Erythrocyte distribution width Auto Ratio (RBC) 13.7 % Normal 12.3-15.4 [facility] Work Phone: Erythrocyte distribution width Ratio (RBC) 13.7 % Normal 12.3-15.4 [facility] Work Phone: Comment on above: PATIENT WAS FASTINGP ERFORMED BY: PORSHA [facility]6370 [facility] [id number] Information: [id number] Hematocrit Auto Volume Fraction (Bld) 42.5 % Normal 37.5-51.0 [facility] Work Phone: Hematocrit Volume Fraction (Bld) 42.5 % Normal 37.5-51.0 [facility] Work Phone: Comment on above: PATIENT WAS FASTINGP ERFORMED BY: PORSHA [place] 3829370 [facility] [id number] Information: [id number] Hemoglobin mass conc (Bld) 14.5 g/dL Normal 12.6-17.7 [facility] Work Phone: Comment on above: PATIENT WAS FASTINGP ERFORMED BY: PORSHA [address] [id number] Information: [id number] Immature granulocytes #/vol (Bld) 0.0 {x10E3/uL} Normal 0.0-0.1 [facility] Work Phone: Comment on above: PATIENT WAS FASTINGP ERFORMED BY: PORSHA Salazarlin6370 [facility] [id number] Information: [id number] Immature granulocytes (Bld) [#/Vol] 0.0 10*3/uL Normal 0.0-0.1 [facility]; [facility] Work Phone: Immature granulocytes/100 WBC (Bld) 0 % Normal [facility] Work Phone: Comment on above: PATIENT WAS FASTINGP ERFORMED BY: PORSHA [place] 3829370 [facility] [id number] Information: [id number] Lymphocytes #/vol (Bld) 3.8 {x10E3/uL} Abnormal 0.7-3.1 [facility] Work Phone: Comment on above: PATIENT WAS FASTINGP ERFORMED BY: PORSHA [place] 3829370 [facility] [id number] Information: [id number] Lymphocytes (Bld) [#/Vol] 3.8 10*3/uL Abnormal 0.7-3.1 [facility]; [facility] Work Phone: Lymphocytes Auto #/vol (Bld) 3.8 {x10E3/uL} Abnormal 0.7-3.1 [facility] Work Phone: Lymphocytes/100 WBC (Bld) 36 % Normal [facility] Work Phone: Comment on above: PATIENT WAS FASTINGP ERFORMED BY: PORSHA [place] 3829370 [facility] [id number] Information: [id number] Lymphocytes/100 WBC Auto (Bld) 36 % Normal [facility] Work Phone: MCH Auto Entitic mass (RBC) 32.3 pg Normal 26.6-33.0 [facility] Work Phone: MCH Entitic mass (RBC) 32.3 pg Normal 26.6-33.0 [facility] Internal Medicine Work Phone: Comment on above: PATIENT WAS FASTINGP ERFORMED BY: PORSHA [facility]6370 [facility] [id number] Information: [id number] MCHC Auto mass conc (RBC) 34.1 g/dL Normal 31.5-35.7 [facility] Work Phone: MCHC mass conc (RBC) 34.1 g/dL Normal 31.5-35.7 [facility] Internal Medicine Work Phone: Comment on above: PATIENT WAS FASTINGP ERFORMED BY: [place] 0126270 [facility] [id number] Information: [id number] MCV Auto Entitic volume (RBC) 95 fL Normal 79-97 [facility] Work Phone: MCV Entitic volume (RBC) 95 fL Normal 79-97 [facility] Work Phone: Comment on above: PATIENT WAS FASTINGP ERFORMED BY: [facility]6370 [facility] [id number] Information: [id number] Monocytes #/vol (Bld) 1.0 {x10E3/uL} Abnormal 0.1-0.9 [facility] Work Phone: Comment on above: PATIENT WAS FASTINGP ERFORMED BY: [place] 0126270 [facility] [id number] Information: [id number] Monocytes (Bld) [#/Vol] 1.0 10*3/uL Abnormal 0.1-0.9 [facility]; [facility] Work Phone: Monocytes Auto #/vol (Bld) 1.0 {x10E3/uL} Abnormal 0.1-0.9 [facility] Work Phone: Monocytes/100 WBC (Bld) 9 % Normal [facility] Work Phone: Comment on above: PATIENT WAS FASTINGP ERFORMED BY: [place] 0126270 [facility] [id number] Information: [id number] Monocytes/100 WBC Auto (Bld) 9 % Normal [facility] Work Phone: Neutrophils #/vol (Bld) 5.5 {x10E3/uL} Normal 1.4-7.0 [facility] Work Phone: Comment on above: PATIENT WAS FASTINGP ERFORMED BY: [facility]6370 [facility] [id number] Information: [id number] Neutrophils (Bld) [#/Vol] 5.5 10*3/uL Normal 1.4-7.0 [facility]; [facility] Work Phone: Neutrophils Auto #/vol (Bld) 5.5 {x10E3/uL} Normal 1.4-7.0 [facility] Work Phone: Neutrophils/100 WBC (Bld) 53 % Normal [facility] Work Phone: Comment on above: PATIENT WAS FASTINGP ERFORMED BY: PORSHA [place] 3829370 [facility] [id number] Information: [id number] Neutrophils/100 WBC Auto (Bld) 53 % Normal [facility] Work Phone: Platelets #/vol (Bld) 278 {x10E3/uL} Normal 150-379 [facility] Work Phone: Comment on above: PATIENT WAS FASTINGP ERFORMED BY: [address] [id number] Information: [id number] Platelets (Bld) [#/Vol] 278 10*3/uL Normal 150-379 [facility]; [facility] Work Phone: Platelets Auto #/vol (Bld) 278 {x10E3/uL} Normal 150-379 [facility] Work Phone: RBC #/vol (Bld) 4.49 {x10E6/uL} Normal 4.14-5.80 Comp rehensive Internal Medicine Work Phone: Comment on above: PATIENT WAS FASTINGP ERFORMED BY: PORSHA [address] [id number] Information: [id number] RBC (Bld) [#/Vol] 4.49 10*6/uL Normal 4.14-5.80 Compr ehensive Internal Medicine; [facility] Work Phone: RBC Auto #/vol (Bld) 4.49 {x10E6/uL} Normal 4.14-5.80 [facility] Work Phone: WBC #/vol (Bld) 10.6 {x10E3/uL} Normal 3.4-10.8 [facility] Work Phone: Comment on above: PATIENT WAS FASTINGP ERFORMED BY: [address] [id number] Information: [id number] WBC (Bld) [#/Vol] 10.6 10*3/uL Normal 3.4-10.8 Compr [facility] Internal Medicine; [facility] Work Phone: WBC Auto #/vol (Bld) 10.6 {x10E3/uL} Normal 3.4-10.8 [facility] Work Phone: HGB A1C ([id number])Ordered By: S ystem Welcome Desk Agent on 06-09-2015 Hemoglobin A1c/Hemoglobin.total mass fraction (Bld) 5.8 % Abnormal 4.8-5.6 Comprehensiv e Internal Medicine Work Phone: Comment on above: . Pre-diabetes: 5.7 - 6.4 Diabetes: >6.4 Glycemic control for adults with diabetes: <7.0 PATIENT WAS FASTINGP ERFORMED BY: PORSHA [employer] Secure SolutionsAt[facility] Health [facility] [id number] LIPID PANEL (30265)Ordered B y: .Net Developer on 06-09-2015 Cholesterol in HDL mass conc 42 mg/dL Normal [facility] Work Phone: Comment on above: According to ATP-III Guidelines, HDL-C >59 mg/dL is considered anegative risk factor for CHD. PATIENT WAS FASTINGP ERFORMED BY: PORSHA [employer]70 [employer]MA TherapeuticsARH [facility] [id number] Cholesterol in LDL mass conc 126 mg/dL Abnormal 0-99 [facility] Work Phone: Comment on above: PATIENT WAS FASTINGP ERFORMED BY: [employer]70 [employer] Secure SolutionsAt[facility] Health [facility] [id number] Cholesterol in LDL/Cholesterol in HDL mass ratio 3.0 {ratio_units} Normal 0.0-3.6 [facility] Work Phone: Comment on above: LDL/HDL Ratio Men Wo men 1/2 Avg.Risk 1.0 1.5 Avg.Risk 3.6 3.2 2X Avg.Risk 6.2 5.0 3X Avg.Risk 8.0 6.1 PATIENT WAS FASTINGP ERFORMED BY: Ebook [employer]ue [facility] [id number] Cholesterol in VLDL mass conc 24 mg/dL Normal 5-40 [facility] Work Phone: Comment on above: PATIENT WAS FASTINGP ERFORMED BY: PORSHA Mat Manning6370 [facility] [id number] Cholesterol mass conc 192 mg/dL Normal 100-199 Com prehensive Internal Medicine Work Phone: Comment on above: PATIENT WAS FASTINGP ERFORMED BY: PORSHA Mat Salazarlin6370 [facility] [id number] Triglyceride mass conc 119 mg/dL Normal 0-149 Co mprehensive Internal Medicine Work Phone: Comment on above: PATIENT WAS FASTINGP ERFORMED BY: PORSHA Mat Salazarlin6370 [facility] [id number] METABOLIC PANEL, COMPREHENSI VE (28136)Ordered By: .Net Developer on 06-09-2015 Albumin mass conc 4.8 g/dL Normal 3.5-5.5 Compreh ensive Internal Medicine Work Phone: Comment on above: PATIENT WAS FASTINGP ERFORMED BY: PORSHA Kee Xgeepf6566 [facility] [id number] Albumin/Globulin mass ratio 2.4 {ratio} Normal 1.1-2.5 [facility] Work Phone: Comment on above: PATIENT WAS FASTINGP ERFORMED BY: PORSHA Kee Bnpvmu3854 [facility] [id number] ALP [Catalytic activity/Vol] 65 U/L Normal 39-117 [facility]; [facility] Work Phone: ALP enzyme act/vol 65 [iU]/L Normal 39-117 Compre [facility]inter[facility] Internal Medicine Work Phone: Comment on above: PATIENT WAS FASTINGP ERFORMED BY: PORSHA Kee Iubkll2665 [facility] [id number] ALT [Catalytic activity/Vol] 48 U/L Abnormal 0-44 [facility]; [facility] Work Phone: ALT enzyme act/vol 48 [iU]/L Abnormal 0-44 [facility] Internal Medicine Work Phone: Comment on above: PATIENT WAS FASTINGP ERFORMED BY: PORSHA [facility] Vthlwr3506 [address] RoadDublin [place] [id number] AST [Catalytic activity/Vol] 49 U/L Abnormal 0-40 [facility]; [facility] Work Phone: AST enzyme act/vol 49 [iU]/L Abnormal 0-40 [facility] Internal Medicine Work Phone: Comment on above: PATIENT WAS FASTINGP ERFORMED BY: PORSHA [facility] Vzcucy0103 [address]iga RoadDublin [place] [id number] Bilirubin mass conc 0.4 mg/dL Normal 0.0-1.2 Compr ensive Internal Medicine Work Phone: Comment on above: PATIENT WAS FASTINGP ERFORMED BY: PORSHA [facility] Trdwzf1993 [address] RoadDublin [place] [id number] Calcium mass conc 9.9 mg/dL Normal 8.7-10.2 Compreh [facility] centerive Internal [facility] Work Phone: Comment on above: PATIENT WAS FASTINGP ERFORMED BY: PORSHA [facility] Qxsdpk5501 [address] RoadDublin [place] [id number] Chloride molar conc 98 mmol/L Normal 97-108 Compr [facility] Internal Medicine Work Phone: Comment on above: PATIENT WAS FASTINGP ERFORMED BY: PORSHA [facility] Lxxioz6618 [address] RoadDublin [place] [id number] CO2 molar conc 25 mmol/L Normal 18-29 Comprehens olivia Internal Medicine Work Phone: Comment on above: PATIENT WAS FASTINGP ERFORMED BY: PORSHA [facility] Zxkext9178 [address] RoadDublin [place] [id number] Creatinine mass conc 1.23 mg/dL Normal 0.76-1.27 [facility] Work Phone: Comment on above: PATIENT WAS FASTINGP ERFORMED BY: PORSHA [facility] Zmxsek3855 [address] RoadDublin [place] [id number] GFR/1.73 sq M predicted among blacks CKD-EPI vol rate/area (S/P/Bld) 80 mL/min/1.73 Normal [facility] Work Phone: Comment on above: PATIENT WAS FASTINGP ERFORMED BY: PORSHA [facility] Xjcuve2188 [address] [facility] [place] [id number] GFR/1.73 sq M predicted among non-blacks CKD-EPI vol rate/area (S/P/Bld) 69 mL/min/1.73 Normal Comprehensiv e Internal Medicine Work Phone: Comment on above: PATIENT WAS FASTINGP ERFORMED BY: [facility] Bfoirq110[address] [facility]in [place] [id number] Globulin Calculated mass conc (S) 2.0 g/dL Normal 1.5-4.5 [facility] Work Phone: Globulin mass conc (S) 2.0 g/dL Normal 1.5-4.5 Co mprehensive Internal Medicine Work Phone: Comment on above: PATIENT WAS FASTINGP ERFORMED BY: [facility] Wlfwcp7081 [address] [facility] [id number] Glucose mass conc 79 mg/dL Normal 65-99 Compreh ensive Internal Medicine Work Phone: Comment on above: PATIENT WAS FASTINGP ERFORMED BY: [facility] Nhybgj9088 [facility] [place] [id number] Potassium molar conc 4.7 mmol/L Normal 3.5-5.2 Comp rehensive Internal Medicine Work Phone: Comment on above: PATIENT WAS FASTINGP ERFORMED BY: [facility] Knozld6650 [address] [facility] [place] [id number] Protein mass conc 6.8 g/dL Normal 6.0-8.5 Compreh ensive Internal Medicine Work Phone: Comment on above: PATIENT WAS FASTINGP ERFORMED BY: [facility] Wzgjqq3801 [address] [facility] [place] [id number] Sodium molar conc 139 mmol/L Normal 134-144 Compreh ensive Internal Medicine Work Phone: Comment on above: PATIENT WAS FASTINGP ERFORMED BY: Fixya Qcmekk7080 [facility] [id number] Urea nitrogen mass conc 17 mg/dL Normal 6-24 [facility] Work Phone: Comment on above: PATIENT WAS FASTINGP ERFORMED BY: OpenetCitizens [facility] Sczxff0194 [facility] [id number] Urea nitrogen/Creatinine mass ratio 14 mg/mg Normal 9-20 [facility] Work Phone: Comment on above: PATIENT WAS FASTINGP ERFORMED BY: FixyaRobert Wood Johnson University Hospital at RahwayGmtdsm8818 [facility] [id number] PSA (PROSTATE SPECIFIC ANTIG EN) (V76.44)Ordered By: .Net Developer on 06-09-2015 Prostate specific Ag mass conc 0.6 ng/mL Normal 0.0-4.0 [facility] Work Phone: Comment on above: Caridad ECLIA methodol ogy. .According to the [place] [employer], Serum PSA shoulddecrease and remain at undetectable levels after radicalprostatectomy. The AUA defines biochemical recurrence as an initialPSA value 0.2 ng/mL or greater followed by a subsequent confirmatoryPSA value 0.2 ng/mL or greater.Values obtained with different assay methods or kits cannot be usedinterchangeably. Results cannot be interpreted as absolute evidenceof the presence or absence of malignant disease. PATIENT WAS FASTINGP ERFORMED BY: OpenetWalter P. Reuther Psychiatric Hospital6370 [facility] [id number] Rapid Flu (13177 x 2)Ordered By: Carlyn Zhong on 02-23-2015 FLUAV Ag IA Ql (Throat) Negative Normal [facility] Work Phone: FLUAV Ag IA Ql (Throat) Negative Normal [facility]; [facility] Work Phone: Lipid Panel (19733)Ordered B y: .Net Developer on 07-22-2014 Cholesterol in HDL mass conc 39 mg/dL Abnormal [facility] Work Phone: Comment on above: According to ATP-III Guidelines, HDL-C >59 mg/dL is considered anegative risk factor for CHD. PATIENT WAS FASTINGP ERFORMED BY: PORSHA LabColewis Snmjdo[address] [facility] [place] [id number] Cholesterol in LDL mass conc 124 mg/dL Abnormal 0-99 [facility] Work Phone: Comment on above: PATIENT WAS FASTINGP ERFORMED BY: PORSHA LabColewis Sacxdi[address] [facility]in [place] [id number] Cholesterol in LDL/Cholesterol in HDL mass ratio 3.2 {ratio_units} Normal 0.0-3.6 [facility] Work Phone: Comment on above: LDL/HDL Ratio Men Wo men 1/2 Avg.Risk 1.0 1.5 Avg.Risk 3.6 3.2 2X Avg.Risk 6.2 5.0 3X Avg.Risk 8.0 6.1 PATIENT WAS FASTINGP ERFORMED BY: PORSHA LabKeaton Kdixpb2304 [address] [facility] [id number] Cholesterol in VLDL mass conc 44 mg/dL Abnormal 5-40 [facility] Work Phone: Comment on above: PATIENT WAS FASTINGP ERFORMED BY: PORSHA LabColewis Yoxooa24[address] [facility] [id number] Cholesterol mass conc 207 mg/dL Abnormal 100-199 Com prehensive Internal Medicine Work Phone: Comment on above: PATIENT WAS FASTINGP ERFORMED BY: PORSHA LabKeaton Xqobhl[address] [facility] [id number] Triglyceride mass conc 221 mg/dL Abnormal 0-149 Co [facility] centerensive Internal Medicine Work Phone: Comment on above: PATIENT WAS FASTINGP ERFORMED BY: PORSHA [facility] Lglivg1901 [address] [facility]in [place] [id number] Metabolic Panel, Comprehensi ve (12240)Ordered By: .Net Developer on 07-22-2014 Albumin mass conc 4.8 g/dL Normal 3.5-5.5 Compreh ensive Internal Medicine Work Phone: Comment on above: PATIENT WAS FASTINGP ERFORMED BY: PORSHA [facility] Lkwwom6998 [address] [facility] [id number] Information: [id number] Albumin/Globulin mass ratio 2.5 {ratio} Normal 1.1-2.5 [facility] Internal Medicine Work Phone: Comment on above: PATIENT WAS FASTINGP ERFORMED BY: PORSHA Keelewis Xjfvyf8817 [facility] [id number] Information: [id number] ALP [Catalytic activity/Vol] 62 U/L Normal 39-117 [facility] Internal Medicine; [facility] Work Phone: ALP enzyme act/vol 62 [iU]/L Normal 39-117 [facility] Internal Medicine Work Phone: Comment on above: PATIENT WAS FASTINGP ERFORMED BY: PORSHA [facility] Xvxnqo7981 [facility] [id number] Information: [id number] ALT [Catalytic activity/Vol] 33 U/L Normal 0-44 [facility] Internal Medicine; [facility] Work Phone: ALT enzyme act/vol 33 [iU]/L Normal 0-44 [facility] Internal Medicine Work Phone: Comment on above: PATIENT WAS FASTINGP ERFORMED BY: PORSHA [facility] Tvkrua8367 [facility] [id number] Information: [id number] AST [Catalytic activity/Vol] 37 U/L Normal 0-40 [facility] Internal [facility]; [facility] Work Phone: AST enzyme act/vol 37 [iU]/L Normal 0-40 [facility] Internal Medicine Work Phone: Comment on above: PATIENT WAS FASTINGP ERFORMED BY: PORSHA LabWalter P. [facility]6370 [facility] [id number] Information: [id number] Bilirubin mass conc 0.4 mg/dL Normal 0.0-1.2 [facility] Internal Medicine Work Phone: Comment on above: PATIENT WAS FASTINGP ERFORMED BY: [facility]6370 [facility] [id number] Information: [id number] Calcium mass conc 10.1 mg/dL Normal 8.7-10.2 Compreh ensive Internal Medicine Work Phone: Comment on above: PATIENT WAS FASTINGP ERFORMED BY: PORSHA [facility] Vuysng5653 [address] [facility] [id number] Information: [id number] Chloride molar conc 98 mmol/L Normal 97-108 Compr ehensive Internal Medicine Work Phone: Comment on above: PATIENT WAS FASTINGP ERFORMED BY: CB [facility] Lomktc7627 [address] [facility] [id number] Information: [id number] CO2 molar conc 25 mmol/L Normal 18-29 Comprehens olivia Internal Medicine Work Phone: Comment on above: PATIENT WAS FASTINGP ERFORMED BY: PORSHA [facility] Lhcwes5325 [facility] [id number] Information: [id number] Creatinine mass conc 1.09 mg/dL Normal 0.76-1.27 [facility] Work Phone: Comment on above: PATIENT WAS FASTINGP ERFORMED BY: PORSHA [facility] Guhcea3864 [facility] [id number] Information: [id number] GFR/1.73 sq M predicted among blacks CKD-EPI vol rate/area (S/P/Bld) 93 mL/min/1.73 Normal [facility] Work Phone: Comment on above: PATIENT WAS FASTINGP ERFORMED BY: [facility] Llnkdj2802 [facility] [id number] Information: [id number] GFR/1.73 sq M predicted among non-blacks CKD-EPI vol rate/area (S/P/Bld) 80 mL/min/1.73 Normal Comprehensiv e Internal Medicine Work Phone: Comment on above: PATIENT WAS FASTINGP ERFORMED BY: [facility] Mngctj1763 [address] [facility] [id number] Information: [id number] Globulin Calculated mass conc (S) 1.9 g/dL Normal 1.5-4.5 [facility] Work Phone: Globulin mass conc (S) 1.9 g/dL Normal 1.5-4.5 [facility] Work Phone: Comment on above: PATIENT WAS FASTINGP ERFORMED BY: [facility] Wudokv1875 [facility] [id number] Information: [id number] Glucose mass conc 73 mg/dL Normal 65-99 Compreh ensive Internal Medicine Work Phone: Comment on above: PATIENT WAS FASTINGP ERFORMED BY: [facility] Reuifp8726 [facility] [id number] Information: [id number] Potassium molar conc 4.3 mmol/L Normal 3.5-5.2 [facility] Work Phone: Comment on above: PATIENT WAS FASTINGP ERFORMED BY: [facility] Vkhtpn8662 [facility] [id number] Information: [id number] Protein mass conc 6.7 g/dL Normal 6.0-8.5 Compreh ensive Internal Medicine Work Phone: Comment on above: PATIENT WAS FASTINGP ERFORMED BY: [facility] Lzfnfw1676 [facility] [id number] Information: [id number] Sodium molar conc 140 mmol/L Normal 134-144 Compreh ensive Internal Medicine Work Phone: Comment on above: PATIENT WAS FASTINGP ERFORMED BY: [facility] Hkogew4997 [facility] [id number] Information: [id number] Urea nitrogen mass conc 16 mg/dL Normal 6-24 [facility] Work Phone: Comment on above: PATIENT WAS FASTINGP ERFORMED BY: [facility] Ysesgk2222 [facility] [id number] Information: [id number] Urea nitrogen/Creatinine mass ratio 15 mg/mg Normal 9-20 [facility] Work Phone: Comment on above: PATIENT WAS FASTINGP ERFORMED BY: PORSHA Salazarlin6370 [facility] [id number] Information: [id number]-FPIKAWVXKPD-MHHLL (821 05)Ordered By: .Net Developer on 05-30-2014 AFP.tumor marker mass conc 3.4 ng/mL Normal 0.0-8.3 [facility] Work Phone: Comment on above: Caridad ECLIA methodol ogy PATIENT WAS FASTINGP ERFORMED BY: PORSHA Sweet Aqrwqr9797 [facility] [id number] CBC W/AUTO DIFF WBC (02022)O rdered By: .Net Developer on 05-30-2014 Basophils #/vol (Bld) 0.0 {x10E3/uL} Normal 0.0-0.2 [facility] Work Phone: Comment on above: PATIENT WAS FASTINGP ERFORMED BY: PORSHA Salazarlin6370 [facility] [id number] Basophils (Bld) [#/Vol] 0.0 10*3/uL Normal 0.0-0.2 [facility]; [facility] Work Phone: Basophils Auto #/vol (Bld) 0.0 {x10E3/uL} Normal 0.0-0.2 [facility] Work Phone: Basophils/100 WBC (Bld) 0 % Normal [facility] Work Phone: Comment on above: PATIENT WAS FASTINGP ERFORMED BY: PORSHA OpenetCorey [place] 1157370 [facility] [id number] Basophils/100 WBC Auto (Bld) 0 % Normal [facility] Work Phone: Eosinophils #/vol (Bld) 0.2 {x10E3/uL} Normal 0.0-0.4 [facility] Work Phone: Comment on above: PATIENT WAS FASTINGP ERFORMED BY: PORSHA FixyaRobert Wood Johnson University Hospital at RahwayYkudhf8123 [facility] [id number] Eosinophils (Bld) [#/Vol] 0.2 10*3/uL Normal 0.0-0.4 [facility]; [facility] Work Phone: Eosinophils Auto #/vol (Bld) 0.2 {x10E3/uL} Normal 0.0-0.4 [facility] Work Phone: Eosinophils/100 WBC (Bld) 2 % Normal [facility] Work Phone: Comment on above: PATIENT WAS FASTINGP ERFORMED BY: Fixya Xgvkjv6671 [facility] [id number] Eosinophils/100 WBC Auto (Bld) 2 % Normal [facility] Work Phone: Erythrocyte distribution width Auto Ratio (RBC) 13.4 % Normal 12.3-15.4 [facility] Work Phone: Erythrocyte distribution width Ratio (RBC) 13.4 % Normal 12.3-15.4 [facility] Work Phone: Comment on above: PATIENT WAS FASTINGP ERFORMED BY: Fixya Zmaagt9168 [facility] [id number] Hematocrit Auto Volume Fraction (Bld) 42.7 % Normal 37.5-51.0 [facility] Work Phone: Hematocrit Volume Fraction (Bld) 42.7 % Normal 37.5-51.0 [facility] Work Phone: Comment on above: PATIENT WAS FASTINGP ERFORMED BY: FixyaRobert Wood Johnson University Hospital at RahwayRmuesm9938 [facility] [id number] Hemoglobin mass conc (Bld) 14.8 g/dL Normal 12.6-17.7 [facility] Work Phone: Comment on above: PATIENT WAS FASTINGP ERFORMED BY: FixyaSarah [place] 8782170 [facility] [id number] Immature granulocytes #/vol (Bld) 0.0 {x10E3/uL} Normal 0.0-0.1 [facility] Work Phone: Comment on above: PATIENT WAS FASTINGP ERFORMED BY: [place] 0126270 [facility] [id number] Immature granulocytes (Bld) [#/Vol] 0.0 10*3/uL Normal 0.0-0.1 [facility]; [facility] Work Phone: Immature granulocytes/100 WBC (Bld) 0 % Normal [facility] Work Phone: Comment on above: PATIENT WAS FASTINGP ERFORMED BY: [place] 0126270 [facility] [id number] Lymphocytes #/vol (Bld) 4.1 {x10E3/uL} Abnormal 0.7-3.1 [facility] Work Phone: Comment on above: PATIENT WAS FASTINGP ERFORMED BY: [address] [id number] Lymphocytes (Bld) [#/Vol] 4.1 10*3/uL Abnormal 0.7-3.1 [facility]; [facility] Work Phone: Lymphocytes Auto #/vol (Bld) 4.1 {x10E3/uL} Abnormal 0.7-3.1 [facility] Work Phone: Lymphocytes/100 WBC (Bld) 40 % Normal [facility] Work Phone: Comment on above: PATIENT WAS FASTINGP ERFORMED BY: [place] 0126270 [facility] [id number] Lymphocytes/100 WBC Auto (Bld) 40 % Normal [facility] Work Phone: MCH Auto Entitic mass (RBC) 32.2 pg Normal 26.6-33.0 [facility] Work Phone: MCH Entitic mass (RBC) 32.2 pg Normal 26.6-33.0 [facility] Internal Medicine Work Phone: Comment on above: PATIENT WAS FASTINGP ERFORMED BY: [address] [id number] MCHC Auto mass conc (RBC) 34.7 g/dL Normal 31.5-35.7 [facility] Work Phone: MCHC mass conc (RBC) 34.7 g/dL Normal 31.5-35.7 [facility] Internal [facility] Work Phone: Comment on above: PATIENT WAS FASTINGP ERFORMED BY: FixyaCHRISTUS St. Vincent Physicians Medical CenterBxzfao2563 [facility] [id number] MCV Auto Entitic volume (RBC) 93 fL Normal 79-97 [facility] Work Phone: MCV Entitic volume (RBC) 93 fL Normal 79-97 [facility] Work Phone: Comment on above: PATIENT WAS FASTINGP ERFORMED BY: PORSHA LabMilestone SystemsCHRISTUS St. Vincent Physicians Medical CenterAgyrmj0690 [facility] [id number] Monocytes #/vol (Bld) 1.1 {x10E3/uL} Abnormal 0.1-0.9 [facility] Work Phone: Comment on above: PATIENT WAS FASTINGP ERFORMED BY: FixyaRobert Wood Johnson University Hospital at RahwayAoyxsn4644 [facility] [id number] Monocytes (Bld) [#/Vol] 1.1 10*3/uL Abnormal 0.1-0.9 [facility]; [facility] Work Phone: Monocytes Auto #/vol (Bld) 1.1 {x10E3/uL} Abnormal 0.1-0.9 [facility] Work Phone: Monocytes/100 WBC (Bld) 11 % Normal [facility] Work Phone: Comment on above: PATIENT WAS FASTINGP ERFORMED BY: FixyaSarah [place] 8782170 [facility] [id number] Monocytes/100 WBC Auto (Bld) 11 % Normal [facility] Work Phone: Neutrophils #/vol (Bld) 4.8 {x10E3/uL} Normal 1.4-7.0 [facility] Work Phone: Comment on above: PATIENT WAS FASTINGP ERFORMED BY: OpenetJoseph [place] 10688 [facility] [id number] Neutrophils (Bld) [#/Vol] 4.8 10*3/uL Normal 1.4-7.0 [facility]; [facility] Work Phone: Neutrophils Auto #/vol (Bld) 4.8 {x10E3/uL} Normal 1.4-7.0 [facility] Work Phone: Neutrophils/100 WBC (Bld) 47 % Normal [facility] Work Phone: Comment on above: PATIENT WAS FASTINGP ERFORMED BY: OpenetWalter P. Reuther Psychiatric Hospital6370 [facility] [id number] Neutrophils/100 WBC Auto (Bld) 47 % Normal [facility] Work Phone: Platelets #/vol (Bld) 307 {x10E3/uL} Normal 150-379 [facility] Work Phone: Comment on above: PATIENT WAS FASTINGP ERFORMED BY: [facility]6370 [facility] [id number] Platelets (Bld) [#/Vol] 307 10*3/uL Normal 150-379 [facility]; [facility] Work Phone: Platelets Auto #/vol (Bld) 307 {x10E3/uL} Normal 150-379 [facility] Work Phone: RBC #/vol (Bld) 4.59 {x10E6/uL} Normal 4.14-5.80 [facility] Internal Medicine Work Phone: Comment on above: PATIENT WAS FASTINGP ERFORMED BY: [facility]6370 [facility] [id number] RBC (Bld) [#/Vol] 4.59 10*6/uL Normal 4.14-5.80 [facility] Internal Medicine; [facility] Work Phone: RBC Auto #/vol (Bld) 4.59 {x10E6/uL} Normal 4.14-5.80 [facility] Work Phone: WBC #/vol (Bld) 10.2 {x10E3/uL} Normal 3.4-10.8 [facility] Internal Medicine Work Phone: Comment on above: PATIENT WAS FASTINGP ERFORMED BY: PORSHA Fixyalewis Dtfhxe5431 [facility] [id number] WBC (Bld) [#/Vol] 10.2 10*3/uL Normal 3.4-10.8 [facility] Internal Medicine; [facility] Work Phone: WBC Auto #/vol (Bld) 10.2 {x10E3/uL} Normal 3.4-10.8 [facility] Work Phone: LIPID PANEL ([id number])Ordered B y: .Net Developer on 05-30-2014 Cholesterol in HDL mass conc 44 mg/dL Normal [facility] Work Phone: Comment on above: According to ATP-III Guidelines, HDL-C >59 mg/dL is considered anegative risk factor for CHD. PATIENT WAS FASTINGP ERFORMED BY: PORSHA [employer]70 [facility] [id number] Cholesterol in LDL mass conc 127 mg/dL Abnormal 0-99 [facility] Work Phone: Comment on above: PATIENT WAS FASTINGP ERFORMED BY: PORSHA Fixya Axagkr8515 [facility] [id number] Cholesterol in LDL/Cholesterol in HDL mass ratio 2.9 {ratio_units} Normal 0.0-3.6 [facility] Work Phone: Comment on above: LDL/HDL Ratio Men Wo men 1/2 Avg.Risk 1.0 1.5 Avg.Risk 3.6 3.2 2X Avg.Risk 6.2 5.0 3X Avg.Risk 8.0 6.1 PATIENT WAS FASTINGP ERFORMED BY: PORSHA Fixya Amiweu2316 [facility] [id number] Cholesterol in VLDL mass conc 32 mg/dL Normal 5-40 [facility] Work Phone: Comment on above: PATIENT WAS FASTINGP ERFORMED BY: QikRobert Wood Johnson University Hospital at RahwayMczmbd0130 [facility] [id number] Cholesterol mass conc 203 mg/dL Abnormal 100-199 Com prehensive Internal Medicine Work Phone: Comment on above: PATIENT WAS FASTINGP ERFORMED BY: PORSHA Kee Dfetgy3304 [facility] [id number] Triglyceride mass conc 158 mg/dL Abnormal 0-149 Co mprehensive Internal Medicine Work Phone: Comment on above: PATIENT WAS FASTINGP ERFORMED BY: PORSHA LabCit[facility] Zksitl7223 [facility] [id number] METABOLIC PANEL, COMPREHENSI VE (45989)Ordered By: .Net Developer on 05-30-2014 Albumin mass conc 5.0 g/dL Normal 3.5-5.5 Compreh ensive Internal Medicine Work Phone: Comment on above: PATIENT WAS FASTINGP ERFORMED BY: PORSHA [facility]Cit[facility] Ftntva7883 [facility] [id number] Albumin/Globulin mass ratio 2.4 {ratio} Normal 1.1-2.5 [facility] Work Phone: Comment on above: PATIENT WAS FASTINGP ERFORMED BY: PORSHA [facility]Cit[facility] Mevgio6120 [facility] [id number] ALP [Catalytic activity/Vol] 65 U/L Normal 39-117 [facility]; [facility] Work Phone: ALP enzyme act/vol 65 [iU]/L Normal 39-117 [facility] Internal Medicine Work Phone: Comment on above: PATIENT WAS FASTINGP ERFORMED BY: LabCit[facility] Sxkdjc5083 [facility] [id number] ALT [Catalytic activity/Vol] 51 U/L Abnormal 0-44 [facility]; [facility] Work Phone: ALT enzyme act/vol 51 [iU]/L Abnormal 0-44 [facility] Internal Medicine Work Phone: Comment on above: PATIENT WAS FASTINGP ERFORMED BY: PORSHA [facility]Cit[facility] Zvzbee2813 [facility] [id number] AST [Catalytic activity/Vol] 60 U/L Abnormal 0-40 [facility]; [facility] Work Phone: AST enzyme act/vol 60 [iU]/L Abnormal 0-40 [facility] Internal Medicine Work Phone: Comment on above: PATIENT WAS FASTINGP ERFORMED BY: PORSHA [facility] Wqqtrf5017 [address] RoadDublin [place] [id number] Bilirubin mass conc 0.4 mg/dL Normal 0.0-1.2 [facility] Centerensive Internal [facility] Work Phone: Comment on above: PATIENT WAS FASTINGP ERFORMED BY: PORSHA [facility] Eizcqw2415 [address] RoadDublin [place] [id number] Calcium mass conc 10.1 mg/dL Normal 8.7-10.2 Compreh [facility] Internal Medicine Work Phone: Comment on above: PATIENT WAS FASTINGP ERFORMED BY: PORSHA LabKeaton SalazarYllvwk3518 [address] RoadNovant Health Huntersville Medical Centerin [place] [id number] Chloride molar conc 99 mmol/L Normal 97-108 [facility] Internal Medicine Work Phone: Comment on above: PATIENT WAS FASTINGP ERFORMED BY: PORSHA LabColewis SalazarCmcixt2517 [address] RoadNovant Health Huntersville Medical Centerin [place] [id number] CO2 molar conc 27 mmol/L Normal 18-29 [facility]prehpomona [facility] Internal Medicine Work Phone: Comment on above: PATIENT WAS FASTINGP ERFORMED BY: PORSHA LabColewis SalazarSjrgbq1928 [address] RoadNovant Health Huntersville Medical Centerin [place] [id number] Creatinine mass conc 1.14 mg/dL Normal 0.76-1.27 [facility] Internal Medicine Work Phone: Comment on above: PATIENT WAS FASTINGP ERFORMED BY: PORSHA [facility] Oiacgu7446 [address] RoadDublin [place] [id number] GFR/1.73 sq M predicted among blacks CKD-EPI vol rate/area (S/P/Bld) 89 mL/min/1.73 Normal [facility] Internal Medicine Work Phone: Comment on above: PATIENT WAS FASTINGP ERFORMED BY: PORSHA [facility] Zjimjq2781 [address] RoadAtrium Health Waxhaw [id number] GFR/1.73 sq M predicted among non-blacks CKD-EPI vol rate/area (S/P/Bld) 77 mL/min/1.73 Normal Comprehensiv e Internal Medicine Work Phone: Comment on above: PATIENT WAS FASTINGP ERFORMED BY: PORSHA [facility] Dvvrbi9228 [address] [facility] [id number] Globulin Calculated mass conc (S) 2.1 g/dL Normal 1.5-4.5 [facility] Work Phone: Globulin mass conc (S) 2.1 g/dL Normal 1.5-4.5 Co mprehensive Internal Medicine Work Phone: Comment on above: PATIENT WAS FASTINGP ERFORMED BY: PORSHA Salazarlin6370 [facility] [id number] Glucose mass conc 64 mg/dL Abnormal 65-99 Compreh ensive Internal Medicine Work Phone: Comment on above: PATIENT WAS FASTINGP ERFORMED BY: PORSHA LabCit[facility] Xhjdnn5658 [facility] [id number] Potassium molar conc 4.5 mmol/L Normal 3.5-5.2 Comp rehensive Internal Medicine Work Phone: Comment on above: PATIENT WAS FASTINGP ERFORMED BY: PORSHA LabKeaton SalazarDrrsfm6997 [facility] [id number] Protein mass conc 7.1 g/dL Normal 6.0-8.5 Compreh ensive Internal Medicine Work Phone: Comment on above: PATIENT WAS FASTINGP ERFORMED BY: PORSHA [facility] Afaddi2652 [address] [facility]in [place] [id number] Sodium molar conc 142 mmol/L Normal 134-144 Compreh ensive Internal Medicine Work Phone: Comment on above: PATIENT WAS FASTINGP ERFORMED BY: PORSHA [facility] Rblcad6860 [address] [facility]in [place] [id number] Urea nitrogen mass conc 14 mg/dL Normal 6-24 [facility] Work Phone: Comment on above: PATIENT WAS FASTINGP ERFORMED BY: [facility]6370 [facility] [id number] Urea nitrogen/Creatinine mass ratio 12 mg/mg Normal 9-20 [facility] Internal Medicine Work Phone: Comment on above: PATIENT WAS FASTINGP ERFORMED BY: [facility]6370 [facility] [id number] PT (Prothrobim Time) (90660) Ordered By: .Net Developer on 05-30-2014 INR Coag RelTime (PPP) 1.0 {INR} Normal 0.8-1.2 Co [facility] Internal Medicine Work Phone: Comment on above: Reference interval i s for non-anticoagulated patients. . Suggested INR therapeutic range for Vitamin K antagonist therapy: Standard Dose (moderate intensity therapeutic range): 2.0 - 3.0 Higher intensity therapeutic range 2.5 - 3.5 PATIENT WAS FASTINGP ERFORMED BY: [facility]6370 [facility] [id number] Prothrombin time (PT) Coag time (PPP) 10.4 {sec} Normal 9.1-12.0 [facility] Internal Medicine Work Phone: Comment on above: PATIENT WAS FASTINGP ERFORMED BY: [facility]6370 [facility] [id number] PT Coag (PPP) [Time] 10.4 s Normal 9.1-12.0 [facility] Internal [facility]; [facility] Internal Medicine Work Phone: PTT (Activated Partial Throm boplastin Time) (94615)Ordered By: .Net Developer on 05-30-2014 aPTT Coag (PPP) [Time] 28 s Normal 24-33 Co [facility] Internal Medicine; [facility] Internal Medicine Work Phone: aPTT Coag time (Bld) 28 {sec} Normal 24-33 [facility] Internal Medicine Work Phone: Comment on above: This test has not be en validated for monitoring unfractionated heparintherapy. aPTT-based therapeutic ranges for unfractionated heparintherapy have not been established. For general guidelines onHeparin monitoring, refer to the [facility] Directory of Services. aPTT Coag time (PPP) 28 {sec} Normal 24-33 Comp rehensive Internal Medicine Work Phone: Comment on above: This test has not be en validated for monitoring unfractionated heparintherapy. aPTT-based therapeutic ranges for unfractionated heparintherapy have not been established. For general guidelines onHeparin monitoring, refer to the [facility] Directory of Services. PATIENT WAS FASTINGP ERFORMED BY: PORSHA LabCit[facility] Qwurez7275 [facility] [id number] Urinalysis, Office ([id number])Or dered By: Melina Hook on 07-25-2013 Bilirubin Ql (U) Negative Normal Comprehe nsive Internal Medicine Work Phone: Bilirubin Ql (U) Negative Normal Comprehe nsive Internal Medicine; [facility] Work Phone: Glucose Test strip (U) [Mass/Vol] Negative Normal [facility]; [facility] Work Phone: Glucose Test strip mass conc (U) Negative Normal [facility] Work Phone: Hemoglobin Ql (U) non-hemolyzed trace Normal [facility] Work Phone: Hemoglobin Test strip Ql (U) non-hemolyzed trace Normal Comprehensiv e Internal Medicine Work Phone: Ketones Ql (U) 5 mg/dL Abnormal Comprehens olivia Internal Medicine Work Phone: Leukocyte esterase Test strip Ql (U) Negative Normal [facility] Work Phone: Leukocyte esterase Test strip Ql (U) Negative Normal [facility]; [facility] Work Phone: Nitrite Ql (U) Negative Normal Comprehens olivia Internal Medicine Work Phone: Nitrite Ql (U) Negative Normal Comprehens olivia Internal Medicine; [facility] Work Phone: Nitrite Test strip Ql (U) Negative Normal [facility] Work Phone: pH (U) 6.5 [pH] Normal [facility] Work Phone: pH Test strip (U) 6.5 [pH] Normal Compreh ensive Internal Medicine Work Phone: Protein Ql (U) Negative Normal Comprehens olivia Internal Medicine Work Phone: Protein Ql (U) Negative Normal Comprehens olivia Internal Medicine; [facility] Work Phone: Protein Test strip Ql (U) Negative Normal [facility] Work Phone: Specific gravity Relative Density (U) 1.030 1 Abnormal Comprehensi ve Internal Medicine Work Phone: Urobilinogen mass/time (24H U) Normal Normal [facility] Work Phone: HgA1C , Office ([id number])Ordere d By: Kalyani Hernandez on 09-20-2012 Hemoglobin A1c/Hemoglobin.total mass fraction (Bld) 5.6 % Normal 4.6 - 7.1 Comprehensiv e Internal Medicine Work Phone: LIPID PANEL ([id number])Ordered B y: .Net Developer on 09-20-2012 Cholesterol in HDL mass conc 43 mg/dL Normal [facility] Work Phone: Comment on above: According to ATP-III Guidelines, HDL-C >59 mg/dL is considered anegative risk factor for CHD. PATIENT NOT FASTINGP ERFORMED BY: PORSHA OpenetKeaton Manning6[address] Shopping MailAtrium Health Waxhaw [id number] Cholesterol in LDL mass conc 113 mg/dL Abnormal 0-99 [facility] Work Phone: Comment on above: PATIENT NOT FASTINGP ERFORMED BY: PORSHA LabKeaton Manning6370 [address] Shopping MailAtrium Health Waxhaw [id number] Cholesterol in LDL/Cholesterol in HDL mass ratio 2.6 {ratio_units} Normal 0.0-3.6 [facility] Work Phone: Comment on above: PATIENT NOT FASTINGP ERFORMED BY: PORSHA OpenetKeaton SalazarRkhcsl2182 [facility] [id number] Cholesterol in VLDL mass conc 18 mg/dL Normal 5-40 [facility] Work Phone: Comment on above: PATIENT NOT FASTINGP ERFORMED BY: PORSHA OpenetColewis SalazarFzusvb3358 [facility] [id number] Cholesterol mass conc 174 mg/dL Normal 100-199 Com prehensive Internal Medicine Work Phone: Comment on above: PATIENT NOT FASTINGP ERFORMED BY: PORSHA Manning6370 [facility] [id number] Triglyceride mass conc 90 mg/dL Normal 0-149 Co mprehensive Internal Medicine Work Phone: Comment on above: PATIENT NOT FASTINGP ERFORMED BY: PORSHA Salazarlin6370 [facility] [id number] METABOLIC PANEL, COMPREHENSI VE ([id number])Ordered By: .Net Developer on 09-20-2012 Albumin mass conc 4.6 g/dL Normal 3.5-5.5 Compreh ensive Internal Medicine Work Phone: Comment on above: PATIENT NOT FASTINGP ERFORMED BY: PORSHA Keelewis Hranst2144 [facility] [id number] Information: [id number] Albumin/Globulin mass ratio 2.0 {ratio} Normal 1.1-2.5 [facility] Work Phone: Comment on above: PATIENT NOT FASTINGP ERFORMED BY: PORSHA Keelewis Fdulfj6296 [facility] [id number] Information: [id number],[id number] ALP [Catalytic activity/Vol] 72 U/L Normal 25-150 [facility]; [facility] Work Phone: ALP enzyme act/vol 72 [iU]/L Normal 25-150 [facility] Internal Medicine Work Phone: Comment on above: PATIENT NOT FASTINGP ERFORMED BY: PORSHA Kee Flujcc8700 [facility] [id number] Information: [id number] ALT [Catalytic activity/Vol] 38 U/L Normal 0-44 [facility]; [facility] Work Phone: ALT enzyme act/vol 38 [iU]/L Normal 0-44 [facility] Internal Medicine Work Phone: Comment on above: PATIENT NOT FASTINGP ERFORMED BY: PORSHA LabCo Qwfqae8900 [facility] [id number] Information: [id number] AST [Catalytic activity/Vol] 47 U/L Abnormal 0-40 [facility]; [facility] Work Phone: AST enzyme act/vol 47 [iU]/L Abnormal 0-40 Compre hensive Internal Medicine Work Phone: Comment on above: PATIENT NOT FASTINGP ERFORMED BY: PORSHA LabCo Mczyvw9001 [address] [facility] [id number] Information: [id number] Bilirubin mass conc 0.4 mg/dL Normal 0.0-1.2 Compr ensive Internal Medicine Work Phone: Comment on above: PATIENT NOT FASTINGP ERFORMED BY: PORSHA LabCoRobert Wood Johnson University Hospital at RahwayHrlhux4140 [facility] [id number] Information: [id number] Calcium mass conc 9.5 mg/dL Normal 8.7-10.2 Compreh ensive Internal Medicine Work Phone: Comment on above: PATIENT NOT FASTINGP ERFORMED BY: PORSHA LabCoRobert Wood Johnson University Hospital at RahwayCpffdg7262 [facility] [id number] Information: [id number],[id number] Chloride molar conc 100 mmol/L Normal 97-108 Compr ensive Internal Medicine Work Phone: Comment on above: PATIENT NOT FASTINGP ERFORMED BY: LabCo Wphdxw7761 [facility] [id number] Information: [id number] CO2 molar conc 23 mmol/L Normal 20-32 Comprehens olivia Internal Medicine Work Phone: Comment on above: Effective September 24, 2012, the reference interval for Carbon Dioxide, Total will be changing to: 0 - 7 days 18 - 28 8 - 30 days 17 - 27 31 d - 5 months 15 - 26 6 m - up to 1 year 15 - 25 1 - 12 years 17 - 26 > 12 years - PATIENT NOT FASTINGP ERFORMED BY: PORSHA BurciagaCoRobert Wood Johnson University Hospital at RahwayBtbwrn3341 [facility] [id number] Information: [id number] Creatinine mass conc 1.02 mg/dL Normal 0.76-1.27 Comp [facility] Work Phone: Comment on above: PATIENT NOT FASTINGP ERFORMED BY: PORSHA BurciagaCitizens Memorial Healthcare Hollsp3376 [facility] [id number] Information: [id number] GFR/1.73 sq M predicted among blacks CKD-EPI vol rate/area (S/P/Bld) 102 mL/min/1.73 Normal [facility] Work Phone: Comment on above: PATIENT NOT FASTINGP ERFORMED BY: [facility] Nwwfnn1544 [facility] [id number] Information: 866422,[id number] GFR/1.73 sq M predicted among non-blacks CKD-EPI vol rate/area (S/P/Bld) 88 mL/min/1.73 Normal Comprehensiv e Internal Medicine Work Phone: Comment on above: PATIENT NOT FASTINGP ERFORMED BY: [place] 0126270 [facility] [id number] Information: [id number],[id number] Globulin Calculated mass conc (S) 2.3 g/dL Normal 1.5-4.5 [facility] Work Phone: Globulin mass conc (S) 2.3 g/dL Normal 1.5-4.5 Co [facility] centerensive Internal Medicine Work Phone: Comment on above: PATIENT NOT FASTINGP ERFORMED BY: [facility]6370 [facility] [id number] Information: [id number],[id number] Glucose mass conc 90 mg/dL Normal 65-99 Compreh ensive Internal Medicine Work Phone: Comment on above: PATIENT NOT FASTINGP ERFORMED BY: LabWalter P. [facility]6370 [facility] [id number] Information: 541503,[id number] Potassium molar conc 4.2 mmol/L Normal 3.5-5.2 Comp rehensive Internal Medicine Work Phone: Comment on above: PATIENT NOT FASTINGP ERFORMED BY: PORSHA [address] [facility] [id number] Information: [id number] Protein mass conc 6.9 g/dL Normal 6.0-8.5 Compreh ensive Internal Medicine Work Phone: Comment on above: PATIENT NOT FASTINGP ERFORMED BY: PORSHA LabCo Atdbhb5271 [facility] [id number] Information: [id number] Sodium molar conc 136 mmol/L Normal 134-144 Compreh ensive Internal Medicine Work Phone: Comment on above: PATIENT NOT FASTINGP ERFORMED BY: PORSHA BurciagaCitizens Memorial Healthcare Tmrpfs2156 [facility] [id number] Information: [id number] Urea nitrogen mass conc 17 mg/dL Normal 6-24 [facility] Work Phone: Comment on above: PATIENT NOT FASTINGP ERFORMED BY: PORSHA BurciagaCitizens Memorial Healthcare Gdhqru1209 [facility] [id number] Information: [id number] Urea nitrogen/Creatinine mass ratio 17 mg/mg Normal 9-20 [facility] Work Phone: Comment on above: PATIENT NOT FASTINGP ERFORMED BY: LabCoSarah Ville 8782170 [facility] [id number] Information: [id number] PSA (PROSTATE SPECIFIC ANTIG EN) (V76.44)Ordered By: .Net Developer on 09-20-2012 Prostate specific Ag mass conc 0.7 ng/mL Normal 0.0-4.0 [facility] Work Phone: Comment on above: Zinch ECLIA methodol ogy. .According to the [employer] [employer], Serum PSA shoulddecrease and remain at undetectable levels after radicalprostatectomy. The AUA defines biochemical recurrence as an initialPSA value 0.2 ng/mL or greater followed by a subsequent confirmatoryPSA value 0.2 ng/mL or greater.Values obtained with different assay methods or kits cannot be usedinterchangeably. Results cannot be interpreted as absolute evidenceof the presence or absence of malignant disease. PATIENT NOT FASTINGP ERFORMED BY: PORSHA [facility] Mpfxqt4881 [facility]in [place] [id number] TSH ([id number])Ordered By: Oziele m Welcome Desk Agent on 09-20-2012 Thyrotropin Qn 2.460 {uIU/mL} Normal 0.450-4.500 [facility] Centerensive [facility] Work Phone: Comment on above: PATIENT NOT FASTINGP ERFORMED BY: Fixya Fscvdw7706 [facility] [id number] LIPID PANEL ([id number])Ordered B y: .Net Developer on 08-08-2011 Cholesterol in HDL mass conc 42 mg/dL Normal [facility] Work Phone: Comment on above: According to ATP-III Guidelines, HDL-C >59 mg/dL is considered anegative risk factor for CHD. PATIENT WAS FASTINGP ERFORMED BY: Fixya Xujtpv6172 [facility] [id number] Cholesterol in LDL mass conc 108 mg/dL Abnormal 0-99 [facility] Work Phone: Comment on above: PATIENT WAS FASTINGP ERFORMED BY: Fixya Yveilf2180 [facility] [id number] Cholesterol in LDL/Cholesterol in HDL mass ratio 2.6 {ratio_units} Normal 0.0-3.6 [facility] Work Phone: Comment on above: PATIENT WAS FASTINGP ERFORMED BY: LabMilestone Systems Snvath4390 [facility] [id number] Cholesterol in VLDL mass conc 43 mg/dL Abnormal 5-40 [facility] Work Phone: Comment on above: PATIENT WAS FASTINGP ERFORMED BY: LabMilestone Systems Sbrcof3006 [facility] [id number] Cholesterol mass conc 193 mg/dL Normal 100-199 [facility] Work Phone: Comment on above: PATIENT WAS FASTINGP ERFORMED BY: PORSHA GualbertoCitizens Memorial Healthcare Jxkctu4229 [facility] [id number] Triglyceride mass conc 214 mg/dL Abnormal 0-149 Co [facility] Internal Medicine Work Phone: Comment on above: PATIENT WAS FASTINGP ERFORMED BY: PORSHA GualbertoCitizens Memorial Healthcare Icefgl6349 [facility] [id number] METABOLIC PANEL, COMPREHENSI VE (48163)Ordered By: .Net Developer on 08-08-2011 Albumin mass conc 4.6 g/dL Normal 3.5-5.5 Compreh [facility] Internal Medicine Work Phone: Comment on above: PATIENT WAS FASTINGP ERFORMED BY: PORSHA [place] 3829370 [facility] [id number] Information: [id number] Albumin/Globulin mass ratio 2.1 {ratio} Normal 1.1-2.5 [facility] Internal Medicine Work Phone: Comment on above: PATIENT WAS FASTINGP ERFORMED BY: PORSHA [facility]6370 [facility] [id number] Information: 198483,[id number] ALP [Catalytic activity/Vol] 68 U/L Normal 25-150 [facility] Internal Medicine; [facility] Internal Medicine Work Phone: ALP enzyme act/vol 68 [iU]/L Normal 25-150 [facility] Internal Medicine Work Phone: Comment on above: PATIENT WAS FASTINGP ERFORMED BY: [facility]6370 [facility] [id number] Information: [id number] ALT [Catalytic activity/Vol] 54 U/L Normal 0-55 [facility]; [facility] Internal Medicine Work Phone: ALT enzyme act/vol 54 [iU]/L Normal 0-55 [facility] Internal Medicine Work Phone: Comment on above: PATIENT WAS FASTINGP ERFORMED BY: [facility]6370 [facility] [id number] Information: [id number] AST [Catalytic activity/Vol] 43 U/L Abnormal 0-40 [facility]; [facility] Work Phone: AST enzyme act/vol 43 [iU]/L Abnormal 0-40 [facility] Healthcaree [facility] Internal Medicine Work Phone: Comment on above: PATIENT WAS FASTINGP ERFORMED BY: CB [facility] Gokyeb1784 [address]un[address] RoadDublin [place] [id number] Information: [id number] Bilirubin mass conc 0.5 mg/dL Normal 0.0-1.2 Compr [facility] Internal Medicine Work Phone: Comment on above: PATIENT WAS FASTINGP ERFORMED BY: CB [facility] Tgfhut4917 [address] RoadDublin [place] [id number] Information: 222661,[id number] Calcium mass conc 9.4 mg/dL Normal 8.7-10.2 Compreh [facility] Internal Medicine Work Phone: Comment on above: PATIENT WAS FASTINGP ERFORMED BY: CB [facility] Qhjubn0888 [address] Roadblin [place] [id number] Information: [id number] Chloride molar conc 101 mmol/L Normal 97-108 [facility] Internal Medicine Work Phone: Comment on above: PATIENT WAS FASTINGP ERFORMED BY: CB [facility] Ltkvtu4547 [address] RoadDublin [place] [id number] Information: [id number] CO2 molar conc 23 mmol/L Normal 20-32 Comprehens [facility] Internal Medicine Work Phone: Comment on above: PATIENT WAS FASTINGP ERFORMED BY: CB [facility] Etusfz5941 [address] Roadblin [place] [id number] Information: [id number] Creatinine mass conc 1.02 mg/dL Normal 0.76-1.27 [facility] Internal Medicine Work Phone: Comment on above: PATIENT WAS FASTINGP ERFORMED BY: CB [facility] Bytbuq2140 [address] Roadblin [place] [id number] Information: 845288,[id number] GFR/1.73 sq M predicted among blacks MDRD vol rate/area (S/P/Bld) 103 mL/min/{1.73_m2} Normal Comprehensi ve Internal Medicine Work Phone: Comment on above: Note: A persistent e GFR <60 mL/min/1.73 m2 (3 months or more) mayindicate chronic kidney disease. An eGFR >59 mL/min/1.73 m2 with anelevated urine protein also may indicate chronic kidney disease.Calculated using CKD-EPI formula. PATIENT WAS FASTINGP ERFORMED BY: PORSHA [employer].70 [facility] [id number] Information: [id number] GFR/1.73 sq M predicted among non-blacks CKD-EPI vol rate/area (S/P/Bld) 89 mL/min/1.73 Normal Comprehensiv e Internal Medicine Work Phone: Comment on above: PATIENT WAS FASTINGP ERFORMED BY: PORSHA Fixya Kwmybs9041 [facility] [id number] Information: [id number],[id number] Globulin Calculated mass conc (S) 2.2 g/dL Normal 1.5-4.5 [facility] Work Phone: Globulin mass conc (S) 2.2 g/dL Normal 1.5-4.5 Co mprehensive Internal Medicine Work Phone: Comment on above: PATIENT WAS FASTINGP ERFORMED BY: Fixya Patbtx3292 [facility] [id number] Information: [id number],[id number] Glucose mass conc 87 mg/dL Normal 65-99 Compreh ensive Internal Medicine Work Phone: Comment on above: PATIENT WAS FASTINGP ERFORMED BY: [employer] Dvggdr7143 [facility] [id number] Information: [id number] Potassium molar conc 4.2 mmol/L Normal 3.5-5.2 Comp rehensive Internal Medicine Work Phone: Comment on above: PATIENT WAS FASTINGP ERFORMED BY: [facility] HospitalCoRobert Wood Johnson University Hospital at RahwayGokxxr9578 [facility] [id number] Information: [id number] Protein mass conc 6.8 g/dL Normal 6.0-8.5 Compreh ensive Internal Medicine Work Phone: Comment on above: PATIENT WAS FASTINGP ERFORMED BY: [facility]6370 [facility] [id number] Information: [id number] Sodium molar conc 140 mmol/L Normal 134-144 Compreh ensive Internal Medicine Work Phone: Comment on above: PATIENT WAS FASTINGP ERFORMED BY: [place] 0126270 [facility] [id number] Information: [id number] Urea nitrogen mass conc 12 mg/dL Normal 6-24 [facility] Work Phone: Comment on above: PATIENT WAS FASTINGP ERFORMED BY: [place] 0126270 [facility] [id number] Information: [id number],[id number] Urea nitrogen/Creatinine mass ratio 12 mg/mg Normal 9-20 [facility] Work Phone: Comment on above: PATIENT WAS FASTINGP ERFORMED BY: [facility]6370 [facility] [id number] Information: [id number] TSH (00071)Ordered By: Syste m Welcome Desk Agent on 08-08-2011 Thyrotropin Qn 3.800 {uIU/mL} Normal 0.450-4.500 Compr ehensive Internal Medicine Work Phone: Comment on above: PATIENT WAS FASTINGP ERFORMED BY: LabWalter P. [facility]uther [facility]6370 [facility] [id number] Actin (Smooth Muscle) Antibo dyOrdered By: .Net Developer on 06-17-2009 Actin IgG Qn 3 {Units} Normal 0-19 Comprehensiv e Internal Medicine Work Phone: Comment on above: Negative 0 - 19Weak positive 20 - 30Moderate to strong positive >30.Actin Antibodies are found in 52-85% of patients withautoimmune hepatitis or chronic active hepatitis andin 22% of patients with primary biliary cirrhosis. PERFORMED BY: [employer] Holdings, LLCAt[facility] Health [facility] [id number] Cytomegalovirus (CMV) Ab, Ig MOrdered By: .Net Developer on 06-17-2009 Cytomegalovirus (CMV) Ab, IgM <0.9 Normal 0.0-0.8 [facility] Work Phone: Comment on above: Negative <0.9Equivoc al 0.9 - 1.0Positive >1.0 PERFORMED BY: [employer] Holdings, LLCAt[facility] Health [facility] [id number] EBV Acute Infection Antibodi esOrdered By: .Net Developer on 06-17-2009 EBV Acute Infection Antibodies 1.7 {AI} Abnormal 0.0-0.8 [facility] Work Phone: Comment on above: Negative <0.9Equivoc al 0.9 - 1.0Positive >1.0 PERFORMED BY: [employer], LLCAt[facility] [id number] EBV Acute Infection Antibodies 5.5 {AI} Abnormal 0.0-0.8 [facility] Work Phone: Comment on above: Negative <0.9Equivoc al 0.9 - 1.0Positive >1.0 PERFORMED BY: [facility] BiotherapeuticsAtrium Health [facility] [id number] EBV Acute Infection Antibodies SPRCS Normal Comprehensive Internal Medicine Work Phone: Comment on above: EBV Interpretation Kamryn mann.Interpretation VCA-IgM EA-IgG VCA-IgG NA-ABS.Susceptible - - - -Acute Infection + +or- + -Convalescent Phase +or- +or- + +Chronic or Reactivated - + + +or-Old Infection - - +or- ++ Antibody Present - Antibody Absent PERFORMED BY: Sogou70 [employer] Secure SolutionsAt[facility] Health [facility] [id number] EBV Acute Infection Antibodies 0.2 {AI} Normal 0.0-0.8 [facility] Work Phone: Comment on above: Negative <0.9Equivoc al 0.9 - 1.0Positive >1.0 PERFORMED BY: [employer]6370 [employer] Secure SolutionsAt[facility] [id number] EBV Acute Infection Antibodies 0.3 {AI} Normal 0.0-0.8 [facility] Work Phone: Comment on above: Negative <0.9Equivoc al 0.9 - 1.0Positive >1.0 PERFORMED BY: Sogou70 [employer] Secure SolutionsAt[facility] [id number] Ferritin, SerumOrdered By: Flora ystem Welcome Desk Agent on 06-17-2009 Ferritin mass conc 259 ng/mL Normal 22-322 Compre [facility] Internal Medicine Work Phone: Comment on above: Effective July, Ferritin will bechanging to the [place] ECLIA methodology. Thereference interval will be changing to: ng/mLMales: 30 - 400Females: 13 - 150 PERFORMED BY: [employer]6370 [employer] SciencesAt[facility] Health [facility] [id number] GGTOrdered By: System Manage r on 06-17-2009 Gamma glutamyl transferase enzyme act/vol 33 [iU]/L Normal 0-65 [facility] Internal Medicine Work Phone: Comment on above: PERFORMED BY: [employer]6370 [employer] SolutionsAt[facility] [id number] Glucose, PP/2 Hour (46368)Or dered By: .Net Developer on 06-17-2009 Glucose 2 hours p meal mass conc 86 mg/dL Normal 65-139 [facility] Internal Medicine Work Phone: Comment on above: PATIENT NOT FASTINGP ERFORMED BY: [employer] Hwwhnb0579 [address] [facility] [id number] Information: [id number] 75G DRAWN@ 1 045AM Hepatic Function Panel (7)Or dered By: .Net Developer on 06-17-2009 Albumin mass conc 4.6 g/dL Normal 3.5-5.5 Compreh [facility] Internal Medicine Work Phone: Comment on above: PERFORMED BY: [employer], LLCin [place] [id number] ALP enzyme act/vol 75 [iU]/L Normal 25-150 [facility] Internal Medicine Work Phone: Comment on above: PERFORMED BY: Strat[employer]in6370 [facility] [id number] ALT enzyme act/vol 47 [iU]/L Normal 0-55 [facility] Internal Medicine Work Phone: Comment on above: PERFORMED BY: [employer]6370 [facility] [id number] AST enzyme act/vol 37 [iU]/L Normal 0-40 [facility] Internal Medicine Work Phone: Comment on above: PERFORMED BY: Sogou70 [facility] [id number] Bilirubin mass conc 0.4 mg/dL Normal 0.1-1.2 Compr [facility] Internal Medicine Work Phone: Comment on above: PERFORMED BY: Sogou70 [facility] [id number] Bilirubin.direct mass conc 0.11 mg/dL Normal 0.00-0.40 [facility] Work Phone: Comment on above: PERFORMED BY: [employer]6370 [facility] [id number] Protein mass conc 7.0 g/dL Normal 6.0-8.5 Compreh ensive Internal Medicine Work Phone: Comment on above: PERFORMED BY: [employer]6370 [facility] [id number] Hepatitis Panel (4)Ordered B y: .Net Developer on 06-17-2009 HAV IgM IA Ql Negative Normal Comprehensi ve Internal Medicine Work Phone: Comment on above: PERFORMED BY: [employer]6370 [facility] [id number] HBV core IgM IA Ql Negative Normal [facility] Internal Medicine Work Phone: Comment on above: PERFORMED BY: Sogou70 [facility] [id number] HBV surface Ag IA Ql Negative Normal Comp rehensive Internal Medicine Work Phone: Comment on above: PERFORMED BY: Remedy SystemsARH [facility] [id number] Hepatitis Panel (4) <0.1 Normal 0.0-0.9 [facility] Centerensive Internal Medicine Work Phone: Comment on above: Negative: < 0.8Indet erminate 0.8 - 0.9Positive: > 0.9.In order to reduce the incidence of a false positiveresult, the CDC recommends that all s/co ratiosbetween 1.0 and 10.9 be confirmed with additionalRIBA or PCR testing. PERFORMED BY: Remedy SystemsARH [facility] [id number] Liver-Kidney Microsomal AbOr dered By: .Net Developer on 06-17-2009 Liver kidney microsomal 1 Ab Qn (S) <1.0 Normal 0.0-20.0 [facility] Internal Medicine Work Phone: Comment on above: Negative 0.0 - 20.0E quivocal 20.1 - 24.9Positive >24.9.LKM type 1 antibodies are detected in patients withautoimmune hepatitis type 2 and in up to 8% ofpatients with chronic HCV infection. PERFORMED BY: Sogou70 [employer] [facility] [id number] Mitochondrial (M2) AntibodyO rdered By: .Net Developer on 06-17-2009 Mitochondria M2 IgG Qn (S) <20.0 Normal 0.0-20.0 [facility] Internal Medicine Work Phone: Comment on above: Negative 0.0 - 20.0E quivocal 20.1 - 24.9Positive >24.9.Mitochondrial (M2) Antibodies are found in 90-96% ofpatients with primary biliary cirrhosis. PERFORMED BY: [employer] [facility] [id number] TransferrinOrdered By: Paragon Vision Sciencesheidy m Welcome Desk Agent on 06-17-2009 Transferrin mass conc 279 mg/dL Normal 200-370 [facility] Work Phone: Comment on above: PERFORMED BY: CB Lab [facility] Ziwbrp2643 [facility] [id number] LIVEROrdered By: Bobby dumas on 05-14-2009 LIVER See Note Normal [facility] Medicine Work Phone: Comment on above: Exam Number: [id number] ULTRASOUND OF THE RIGHT UPPER QUADRANT Multiple views were obtained. HISTORYThis is a 43-year-old male patient with history of elevated liverfunction tests and right upper quadrant pain. FINDINGSThe pancreas is of homogeneous echotexture. No focal lesion is seen. There is no evidence of cholelithiasis. The gallbladder is notdistended. The gallbladder wall is not thickened. The common bileduct is not dilated. The liver is not enlarged. It is of coarsened echotexture in keepingwith fatty infiltration. There is a focal area of focal fatty sparingseen in the region of the gallbladder fossa. This is unchanged fromprior examination dated January 05, 2005. IMPRESSIONThere is no evidence of cholelithiasis. Fatty infiltration of the liver with a focal area of focal fattysparing adjacent to the gallbladder fossa. Reported By: BRADLEY DIAS ABIMAEL (ANTINUCLEAR ANTIBODY) ( [id number])Ordered By: .Net Developer on 04-22-2009 Nuclear Ab Ql (S) Negative Normal Compreh ensive Internal Medicine Work Phone: Comment on above: PATIENT WAS FASTINGP ERFORMED BY: S7 [employer] Czc9340 [facility] [id number] BY: LabCoRobert Wood Johnson University Hospital at RahwayBqznxa9064 [facility] [id number] BY: [facility] [address] [id number] Nuclear Ab Ql (S) Negative Normal Compreh ensive Internal Medicine; [facility] Work Phone: C-REACTIVE PROTEIN ([id number])Or dered By: .Net Developer on 04-22-2009 CRP mass conc 0.5 mg/L Normal 0.0-4.9 Comprehensi ve Internal Medicine Work Phone: Comment on above: PATIENT WAS FASTINGP ERFORMED BY: S7 [employer] Ayx4946 [facility] [id number] BY: [facility]6370 [facility] [id number] BY: [address] [id number] CBC WITH MANUAL DIFF (07852) Ordered By: .Net Developer on 04-22-2009 Basophils #/vol (Bld) 0.0 {x10E3/uL} Normal 0.0-0.2 [facility] Work Phone: Comment on above: PATIENT WAS FASTINGP ERFORMED BY: [facility] Zan[address] [place] [address] [id number] BY: [facility] HospitalMilestone SystemsSarah Ville 8782170 [facility] [id number] BY: [address] [id number] Basophils (Bld) [#/Vol] 0.0 10*3/uL Normal 0.0-0.2 [facility]; [facility] Work Phone: Basophils Auto #/vol (Bld) 0.0 {x10E3/uL} Normal 0.0-0.2 [facility] Work Phone: Basophils/100 WBC (Bld) 0 % Normal 0-3 [facility] Work Phone: Comment on above: PATIENT WAS FASTINGP ERFORMED BY: [facility] Skk[address] [place] [address] [id number] BY: [place] 0126270 [facility] [id number] BY: [address] [id number] Basophils/100 WBC Auto (Bld) 0 % Normal 0-3 [facility] Work Phone: Eosinophils #/vol (Bld) 0.1 {x10E3/uL} Normal 0.0-0.4 [facility] Work Phone: Comment on above: PATIENT WAS FASTINGP ERFORMED BY: [facility] Mkj8065 [facility] [id number] BY: Fixya Uhdqrq7158 [facility] [id number] BY: Fixya[address] [id number] Eosinophils (Bld) [#/Vol] 0.1 10*3/uL Normal 0.0-0.4 [facility]; [facility] Work Phone: Eosinophils Auto #/vol (Bld) 0.1 {x10E3/uL} Normal 0.0-0.4 [facility] Work Phone: Eosinophils/100 WBC (Bld) 2 % Normal 0-7 [facility] Work Phone: Comment on above: PATIENT WAS FASTINGP ERFORMED BY: BarEye LipPonominalu.ru Vtn4946 [facility] [id number] BY: Fixya Oofmjn6319 [facility] [id number] BY: Fixya[address] [id number] Eosinophils/100 WBC Auto (Bld) 2 % Normal 0-7 [facility] Work Phone: Erythrocyte distribution width Auto Ratio (RBC) 12.6 % Normal 11.7-15.0 [facility] Work Phone: Erythrocyte distribution width Ratio (RBC) 12.6 % Normal 11.7-15.0 [facility] Work Phone: Comment on above: PATIENT WAS FASTINGP ERFORMED BY: BarEye LipPonominalu.ru Frf0875 [facility] [id number] BY: FixyaSarah [place] 8782170 [facility] [id number] BY: Openet[address] [id number] Hematocrit Auto Volume Fraction (Bld) 43.4 % Normal 36.0-50.0 [facility] Work Phone: Hematocrit Volume Fraction (Bld) 43.4 % Normal 36.0-50.0 [facility] Work Phone: Comment on above: PATIENT WAS FASTINGP ERFORMED BY: [employer] Jnc6704 [facility] [id number] BY: PORSHA Fixyalewis SalazarDlawpl0692 [facility] [id number] BY: Fixya[address] [id number] Hemoglobin mass conc (Bld) 15.1 g/dL Normal 12.5-17.0 [facility] Work Phone: Comment on above: PATIENT WAS FASTINGP ERFORMED BY: Agustina LipoSciGradwell Zui2537 [facility] [id number] BY: PORSHA Salazarlin6370 [facility] [id number] BY: VEENA Fixya[address] [id number] Lymphocytes #/vol (Bld) 2.2 {x10E3/uL} Normal 0.7-4.5 [facility] Work Phone: Comment on above: PATIENT WAS FASTINGP ERFORMED BY: Agustina [employer]Science Uzj6192 [facility] [id number] BY: PORSHA BurciagaMilestone Systemslewis SalazarEcmvys3167 [facility] [id number] BY: Fixya[address] [id number] Lymphocytes (Bld) [#/Vol] 2.2 10*3/uL Normal 0.7-4.5 [facility]; [facility] Work Phone: Lymphocytes Auto #/vol (Bld) 2.2 {x10E3/uL} Normal 0.7-4.5 [facility] Work Phone: Lymphocytes/100 WBC (Bld) 36 % Normal 14-46 [facility] Work Phone: Comment on above: PATIENT WAS FASTINGP ERFORMED BY: [employer] Fvq0505 [facility] [id number] BY: PORSHA FixyaRobert [facility] Hospital at RahwayKsnyhk5666 [facility] [id number] BY: [address] [id number] Lymphocytes/100 WBC Auto (Bld) 36 % Normal 14-46 [facility] Work Phone: MCH Auto Entitic mass (RBC) 32.6 pg Normal 27.0-34.0 [facility] Work Phone: MCH Entitic mass (RBC) 32.6 pg Normal 27.0-34.0 [facility] Internal Medicine Work Phone: Comment on above: PATIENT WAS FASTINGP ERFORMED BY: LipoSciGradwell Mje9233 [facility] [id number] BY: PORSHA FixyaSarah [place] 8782170 [facility] [id number] BY: [address] [id number] MCHC Auto mass conc (RBC) 34.7 g/dL Normal 32.0-36.0 [facility] Work Phone: MCHC mass conc (RBC) 34.7 g/dL Normal 32.0-36.0 [facility] Internal Medicine Work Phone: Comment on above: PATIENT WAS FASTINGP ERFORMED BY: LipoSciGradwell Qpe3297 [facility] [id number] BY: PORSHA Fixya Aedjyr8829 [facility] [id number] BY: [address] [id number] MCV Auto Entitic volume (RBC) 94 fL Normal 80-98 [facility] Work Phone: MCV Entitic volume (RBC) 94 fL Normal 80-98 [facility] Work Phone: Comment on above: PATIENT WAS FASTINGP ERFORMED BY: LipoSciGradwell Zpw5669 [facility] [id number] BY: [place] 0126270 [facility] [id number] BY: Openet[address] [id number] Monocytes #/vol (Bld) 0.6 {x10E3/uL} Normal 0.1-1.0 [facility] Work Phone: Comment on above: PATIENT WAS FASTINGP ERFORMED BY: S7 [employer] Sbc0769 [facility] [id number] BY: FixyaSarah [place] 8782170 [facility] [id number] BY: [address] [id number] Monocytes (Bld) [#/Vol] 0.6 10*3/uL Normal 0.1-1.0 [facility]; [facility] Work Phone: Monocytes Auto #/vol (Bld) 0.6 {x10E3/uL} Normal 0.1-1.0 [facility] Work Phone: Monocytes/100 WBC (Bld) 10 % Normal -13 [facility] Work Phone: Comment on above: PATIENT WAS FASTINGP ERFORMED BY: S7 [employer] Qdy6587 [facility] [id number] BY: FixyaSarah [place] 8782170 [facility] [id number] BY: [address] [id number] Monocytes/100 WBC Auto (Bld) 10 % Normal 4-13 [facility] Work Phone: Neutrophils #/vol (Bld) 3.2 {x10E3/uL} Normal 1.8-7.8 [facility] Work Phone: Comment on above: PATIENT WAS FASTINGP ERFORMED BY: [employer] Hyc2971 [facility] [id number] BY: [place] 0126270 [facility] [id number] BY: Fixya[address] [id number] Neutrophils (Bld) [#/Vol] 3.2 10*3/uL Normal 1.8-7.8 [facility]; [facility] Work Phone: Neutrophils Auto #/vol (Bld) 3.2 {x10E3/uL} Normal 1.8-7.8 [facility] Work Phone: Neutrophils/100 WBC (Bld) 52 % Normal 40-74 [facility] Work Phone: Comment on above: PATIENT WAS FASTINGP ERFORMED BY: LipoSciGradwell Ycw[address] [place] [address] [id number] BY: FixyaSarah [place] 8782170 [facility] [id number] BY: Fixya Cmwlddenxo38[address] [id number] Neutrophils/100 WBC Auto (Bld) 52 % Normal 40-74 [facility] Work Phone: Platelets #/vol (Bld) 236 {x10E3/uL} Normal 140-415 [facility] Work Phone: Comment on above: PATIENT WAS FASTINGP ERFORMED BY: [employer] Cvs5996 [facility] [id number] BY: Fixya Gcsduq0686 [facility] [id number] BY: Fixya[address] [id number] Platelets (Bld) [#/Vol] 236 10*3/uL Normal 140-415 [facility]; [facility] Work Phone: Platelets Auto #/vol (Bld) 236 {x10E3/uL} Normal 140-415 [facility] Work Phone: RBC #/vol (Bld) 4.61 {x10E6/uL} Normal 4.10-5.60 [facility] Work Phone: Comment on above: PATIENT WAS FASTINGP ERFORMED BY: S7 [employer] Ors1888 [facility] [id number] BY: [address] [id number] BY: [address] [id number] RBC (Bld) [#/Vol] 4.61 10*6/uL Normal 4.10-5.60 [facility]; [facility] Work Phone: RBC Auto #/vol (Bld) 4.61 {x10E6/uL} Normal 4.10-5.60 [facility] Work Phone: WBC #/vol (Bld) 6.1 {x10E3/uL} Normal 4.0-10.5 [facility] Internal Medicine Work Phone: Comment on above: PATIENT WAS FASTINGP ERFORMED BY: S7 [employer] Cyx0522 [facility] [id number] BY: [address] [id number] BY: [address] [id number] WBC (Bld) [#/Vol] 6.1 10*3/uL Normal 4.0-10.5 [facility] Internal Medicine; [facility] Internal Medicine Work Phone: WBC Auto #/vol (Bld) 6.1 {x10E3/uL} Normal 4.0-10.5 [facility] Internal Medicine Work Phone: CCP Antibodies IgG/IgAOrdere d By: .Net Developer on 04-22-2009 Cyclic citrullinated peptide IgA+IgG IA Qn 1 {units} Normal 0-19 Comprehens olivia Internal Medicine Work Phone: Comment on above: Negative <20Weak pos itive 20 - 39Moderate positive 40 - 59Strong positive >59 PATIENT WAS FASTINGP ERFORMED BY: [employer] Wrq1247 [facility] [id number] BY: [facility] Ocaati1108 [address]uniga RoadDublin [place] [id number] BY: [address] [id number] CommentOrdered By: System oSnya chance on 04-22-2009 Comment SPRCS Normal [facility] Work Phone: Comment on above: Effective January 05, 2009 order code 705614 CCP IgGAntibodies has been replaced due to an updated reagentversion 3.1. For this reason [facility] has provided youwith a new order code 515600 CCP Antibodies IgG/IgA. High Risk: LDL-P <10 00Secondary goal: Small LDL-P <527Moderately High-Risk: LDL-P <1300Secondary goal: Small LDL-P <527 PATIENT WAS FASTINGP ERFORMED BY: S7 [employer] Cev2609 [facility] [id number] BY: [facility] Hmhnlk1648 Zuniga RoadDublin [place] [id number] BY: Lab[address] [id number] PATIENT WAS FASTINGP ERFORMED BY: S7 [employer] Cbk5035 [facility] [id number] BY: [facility] Ogvwbt3136 [address] [facility] Hospitalbl[facility] [place] [id number] BY: [address] [id number] Information: 468822,A56280 LIPOPROTEIN, BLD, BY NMR (83 704)Ordered By: .Net Developer on 04-22-2009 Cholesterol in HDL mass conc 34 mg/dL Abnormal [facility] Work Phone: Comment on above: PATIENT WAS FASTINGP ERFORMED BY: S7 [employer] Wjb1092 [facility] [id number] BY: [facility] Epfbrr0257 [facility] [id number] BY: [address] [id number] Information: 237458,I90249 Cholesterol in HDL mass conc mg/dL Abnormal [facility] Work Phone: Comment on above: PATIENT WAS FASTINGP ERFORMED BY: S7 [employer] Yer6881 [facility] [id number] BY: PORSHA [facility] Kqppdz1513 [facility] [id number] BY: BN [facility] [address] [id number] Information: 051362,V24616 Cholesterol in LDL mass conc 78 mg/dL Normal [facility] Internal Medicine Work Phone: Comment on above: .Optimal < 100Above optimal 100 - 129Borderline 130 - 159High 160 - 189Very high > 189. PATIENT WAS FASTINGP ERFORMED BY: S7 [employer] Mts6941 [facility] [id number] BY: CB [facility] Deqqgb6665 [facility] [id number] BY: LabCo[address] [id number] Information: 463638,A48314 Cholesterol mass conc 150 mg/dL Normal [facility] Internal Medicine Work Phone: Comment on above: PATIENT WAS FASTINGP ERFORMED BY: S7 [employer] Qym3340 [facility] [id number] BY: [facility] Jismkt2694 [facility] [id number] BY: [facility] [address] [id number] Information: 189524,X28281 Triglyceride mass conc 189 mg/dL Abnormal [facility] Internal Medicine Work Phone: Comment on above: PATIENT WAS FASTINGP ERFORMED BY: S7 [employer] Lgf7261 [facility] [id number] BY: CB [facility] Auafsc4210 [facility] [id number] BY: Fixya[address] [id number] Information: 431807,Y64730 LIPOPROTEIN, BLD, BY NMR (96434) 19.7 nm Abnormal [facility] Work Phone: Comment on above: .Small (Pattern B) 1 8.0 - 20.5Large (Pattern A) 20.6 - 23.0. PATIENT WAS FASTINGP ERFORMED BY: S7 [employer] Lmy0928 [facility] [id number] BY: [facility] Snqepw0523 [facility] [id number] BY: Lab[address] [id number] Information: 448010,M65968 LIPOPROTEIN, BLD, BY NMR (76442) 1362 nmol/L Abnormal [facility] Work Phone: Comment on above: .Optimal < 1000Above optimal 1000 - 1299Borderline 1300 - 1599High 1600 - 2000Very high > 2000. PATIENT WAS FASTINGP ERFORMED BY: S7 [employer] Krf2826 [facility] [id number] BY: [facility] Mwlrse3950 [facility] [id number] BY: Openet[address] [id number] Information: 992526,K60647 LIPOPROTEIN, BLD, BY NMR (01870) 1035 nmol/L Abnormal [facility] Work Phone: Comment on above: .Low < 117Moderate 1 17 - 526Borderline 527 - 839High > 839. PATIENT WAS FASTINGP ERFORMED BY: S7 [employer] Nss6654 [facility] [id number] BY: [facility] Dvxwre0032 [facility] [id number] BY: Lab[address] [id number] Information: 929709,O31192 LIPOPROTEIN, BLD, BY NMR (48931) 13.3 nmol/L Abnormal [facility] Work Phone: Comment on above: Small LDL-P, LDL Par ticle Size, Large HDL-P and Large VLDL-Phave been validated by [employer] but not cleared by [place] FDA;the clinical utility of these test results has not been fully established. PATIENT WAS FASTINGP ERFORMED BY: S7 [employer] Pge8566 [facility] [id number] BY: Vusion Bocdjr9528 [facility] [id number] BY: Fixya[address] [id number] Information: 625734,Y22676 LIPOPROTEIN, BLD, BY NMR (98544) < 0.7 Abnormal [facility]; [facility] Work Phone: METABOLIC PANEL, COMPREHENSI VE (24393)Ordered By: .Net Developer on 04-22-2009 Albumin mass conc 4.5 g/dL Normal 3.5-5.5 Compreh ensive Internal Medicine Work Phone: Comment on above: PATIENT WAS FASTINGP ERFORMED BY: S7 [employer] Hbc5284 [facility] [id number] BY: FanIQ6370 [facility] [id number] BY: Fixya[address] [id number] Albumin/Globulin mass ratio 1.7 {ratio} Normal 1.1-2.5 [facility] Work Phone: Comment on above: PATIENT WAS FASTINGP ERFORMED BY: S7 [employer] Iii3978 [facility] [id number] BY: Fixya Ajgbtg9827 [facility] [id number] BY: Fixya[address] [id number] ALP [Catalytic activity/Vol] 71 U/L Normal 25-150 [facility]; [facility] Internal Medicine Work Phone: ALP enzyme act/vol 71 [iU]/L Normal 25-150 [facility] Internal Medicine Work Phone: Comment on above: PATIENT WAS FASTINGP ERFORMED BY: S7 [employer] Ftc0379 [facility] [id number] BY: LabMilestone Systems Wxwmvc1386 [facility] [id number] BY: Fixya[address] [id number] ALT [Catalytic activity/Vol] 58 U/L Abnormal 0-55 [facility] Internal [facility]; [facility] Medicine Work Phone: ALT enzyme act/vol 58 [iU]/L Abnormal 0-55 [facility] Internal Medicine Work Phone: Comment on above: PATIENT WAS FASTINGP ERFORMED BY: S7 [employer] Aga3087 [facility] [id number] BY: Fixya Nujany2060 [facility] [id number] BY: Fixya[address] [id number] AST [Catalytic activity/Vol] 42 U/L Abnormal 0-40 [facility] Internal Medicine; [facility] Internal Medicine Work Phone: AST enzyme act/vol 42 [iU]/L Abnormal 0-40 [facility] Internal Medicine Work Phone: Comment on above: PATIENT WAS FASTINGP ERFORMED BY: S7 [employer] Nyg1005 [facility] [id number] BY: LabMilestone Systems Ljmreb2991 [facility] [id number] BY: Openet[address] [id number] Bilirubin mass conc 0.4 mg/dL Normal 0.1-1.2 [facility] Internal Medicine Work Phone: Comment on above: PATIENT WAS FASTINGP ERFORMED BY: S7 [employer] Byy0624 [facility] [id number] BY: PORSHA [facility] Ktwyhp8892 [address] [facility] [id number] BY: LabCoJohnathan Ville 822657 [facility] [id number] Calcium mass conc 9.4 mg/dL Normal 8.7-10.2 Compreh ensive Internal Medicine Work Phone: Comment on above: PATIENT WAS FASTINGP ERFORMED BY: S7 [employer] Gps9926 [facility] [id number] BY: PORSHA [facility] Ndcrpl7900 [address] [facility] [id number] BY: Fixya[address] [id number] Chloride molar conc 101 mmol/L Normal 97-108 Compr ehensive Internal Medicine Work Phone: Comment on above: PATIENT WAS FASTINGP ERFORMED BY: S7 [employer] Sjl3953 [facility] [id number] BY: PORSHA LabMilestone Systemsrp Arwwsa6115 [facility] [id number] BY: Fixya[address] [id number] CO2 molar conc 25 mmol/L Normal 20-32 Comprehens olivia Internal Medicine Work Phone: Comment on above: PATIENT WAS FASTINGP ERFORMED BY: S7 [employer] Etc1433 [facility] [id number] BY: LabMilestone Systemsrp Iqolzc0468 [address] [facility] [id number] BY: Fixya[address] [id number] Creatinine mass conc 1.02 mg/dL Normal 0.76-1.27 Comp rehensive Internal Medicine Work Phone: Comment on above: PATIENT WAS FASTINGP ERFORMED BY: S7 [employer] Ddk7502 [facility] [id number] BY: PORSHA [facility] Tkdpnq5237 [facility] [id number] BY: Fixya[address] [id number] GFR/1.73 sq M predicted among blacks MDRD vol rate/area (S/P/Bld) mL/min/{1.73_m2} Normal [facility] Work Phone: Comment on above: Note: Persistent red uction for 3 months or more in an eGFR<60 mL/min/1.73 m2 defines CKD. Patients with eGFR values>/=60 mL/min/1.73 m2 may also have CKD if evidence of persistentproteinuria is present. Additional information may be found [email or web address]. PATIENT WAS FASTINGP ERFORMED BY: S7 LipoSciGradwell Lfc6856 [facility] [id number] BY: PORSHA Aframe6370 [facility] [id number] BY: Fixya[address] [id number] GFR/1.73 sq M.predicted MDRD (S/P/Bld) [Vol rate/Area] mL/min/{1.73_m2} Normal [facility] Work Phone: Comment on above: PATIENT WAS FASTINGP ERFORMED BY: S7 LipEffortless Energy2500 [facility] [id number] BY: PORSHA Aframe6370 [facility] [id number] BY: Openet[address] [id number] GFR/1.73 sq M.predicted MDRD vol rate/area mL/min/{1.73_m2} Normal [facility] Work Phone: Comment on above: PATIENT WAS FASTINGP ERFORMED BY: LipPonominalu.ru Xxd2606 [facility] [id number] BY: PORSHA Aframe6370 [facility] [id number] BY: LabCo[address] [id number] Globulin Calculated mass conc (S) 2.6 g/dL Normal 1.5-4.5 [facility] Work Phone: Globulin mass conc (S) 2.6 g/dL Normal 1.5-4.5 [facility] Work Phone: Comment on above: PATIENT WAS FASTINGP ERFORMED BY: S7 [employer] Txj4068 [facility] [id number] BY: Fixya Nyrthg7431 [facility] [id number] BY: Fixya[address] [id number] Glucose mass conc 90 mg/dL Normal 65-99 Compreh ensive Internal Medicine Work Phone: Comment on above: PATIENT WAS FASTINGP ERFORMED BY: S7 [employer] Iwy4378 [facility] [id number] BY: Fixya Kpsglk1168 [facility] [id number] BY: Fixya[address] [id number] Potassium molar conc 4.1 mmol/L Normal 3.5-5.2 [facility] Internal Medicine Work Phone: Comment on above: PATIENT WAS FASTINGP ERFORMED BY: S7 [employer] Vvh8060 [facility] [id number] BY: LabMilestone Systems Vxaupl8801 [facility] [id number] BY: Fixya[address] [id number] Protein mass conc 7.1 g/dL Normal 6.0-8.5 Compreh ensive Internal Medicine Work Phone: Comment on above: PATIENT WAS FASTINGP ERFORMED BY: [facility]Sc[facility] Xpc9505 [facility] [id number] BY: Fixya Lpmvtp1069 [facility] [id number] BY: Fixya[address] [id number] Sodium molar conc 138 mmol/L Normal 135-145 Compreh ensive Internal Medicine Work Phone: Comment on above: PATIENT WAS FASTINGP ERFORMED BY: S7 [employer] Sot6041 [facility] [id number] BY: LabCoSarah V[place] 8782170 [facility] [id number] BY: Fixya[address] [id number] Urea nitrogen mass conc 14 mg/dL Normal 5-26 [facility] Work Phone: Comment on above: PATIENT WAS FASTINGP ERFORMED BY: S7 [employer] Kuk4489 [facility] [id number] BY: PORSHA [facility] Bnwmgc8998 [facility] [id number] BY: Fixya[address] [id number] Urea nitrogen/Creatinine mass ratio 14 mg/mg Normal 8-27 [facility] Work Phone: Comment on above: PATIENT WAS FASTINGP ERFORMED BY: S7 [employer] Tjg8091 [facility] [id number] BY: PORSHA [facility] Qzbnnv8059 [facility] [id number] BY: Fixya[address] [id number] MICROALBUMINOrdered By: Syst em Welcome Desk Agent on 04-22-2009 Albumin DL <= 20 mg/L mass conc (U) 4.5 ug/mL Normal 0.0-17.0 [facility] Work Phone: Comment on above: PATIENT WAS FASTINGP ERFORMED BY: [employer] Mfw7138 [facility] [id number] BY: [facility]CoRobert [facility] at RahwayOwcztb5796 [facility] [id number] BY: ShopSocially [address] [id number] Albumin/Creatinine mass ratio (U) 1.6 {mg/g_creat} Normal 0.0-30.0 [facility] Work Phone: Comment on above: PATIENT WAS FASTINGP ERFORMED BY: S7 [employer] [id number] [facility] [id number] BY: Qikrp Kzercp4745 [facility] [id number] BY: Fixya[address] [id number] Creatinine mass conc (U) 289.5 mg/dL Normal 22.0-328.0 [facility] Work Phone: Comment on above: PATIENT WAS FASTINGP ERFORMED BY: LipoSciGradwell Cqo7919 [facility] [id number] BY: Qik Yshoea8905 [facility] [id number] BY: Fixya[address] [id number] Microscopic ExaminationOrder ed By: .Net Developer on 04-22-2009 Bacteria LM.HPF #/area (Urine sed) None seen Normal [facility] Work Phone: Comment on above: PATIENT WAS FASTINGP ERFORMED BY: S7 [employer] Rwh2763 [facility] [id number] BY: Fixya Zvbnad6240 [facility] [id number] BY: Fixya[address] [id number] Epithelial cells LM.HPF #/area (Urine sed) None seen Normal 0 - 10 [facility] Work Phone: Comment on above: PATIENT WAS FASTINGP ERFORMED BY: S7 [employer] Gnl4229 [facility] [id number] BY: Qikrp Befgbr7169 [address] [facility] [id number] BY: Fixya[address] [id number] Mucus LM Ql (Urine sed) Present Normal [facility] Work Phone: Mucus Ql (Urine sed) Present Normal Comp rehensive Internal Medicine Work Phone: Comment on above: PATIENT WAS FASTINGP ERFORMED BY: [facility] Rvy[address] [place] [address] [id number] BY: Fixya Jnszsa0869 [facility] [id number] BY: Fixya[address] [id number] RBC LM.HPF #/area (Urine sed) 0-3 Normal 0 - 3 [facility] Work Phone: Comment on above: PATIENT WAS FASTINGP ERFORMED BY: [facility] Dpn[address] [place] [address] [id number] BY: [place]Sarah [place] 8782170 [facility] [id number] BY: Fixya[address] [id number] WBC LM.HPF #/area (Urine sed) 0-5 Normal 0 - 5 [facility] Work Phone: Comment on above: PATIENT WAS FASTINGP ERFORMED BY: [facility] Zcv[address] [place] [address] [id number] BY: FixyaSarah [place] 8782170 [facility] [id number] BY: Fixya[address] [id number] PSA (PROSTATE SPECIFIC ANTIG EN) (V76.44)Ordered By: .Net Developer on 04-22-2009 Prostate specific Ag mass conc 0.7 ng/mL Normal 0.0-4.0 [facility] Work Phone: Comment on above: Caridad ECLIA methodol ogy..According to the [employer] [employer], Serum PSA shoulddecrease and remain at undetectable levels after radicalprostatectomy. The AUA defines biochemical recurrence as an initialPSA value 0.2 ng/mL or greater followed by a subsequent confirmatoryPSA value 0.2 ng/mL or greater.Values obtained with different assay methods or kits cannot be usedinterchangeably. Results cannot be interpreted as absolute evidenceof the presence or absence of malignant disease. PATIENT WAS FASTINGP ERFORMED BY: S7 [employer] Huc9677 [facility] [id number] BY: Fixya Zthaps9285 [facility] [id number] BY: Fixya[address] [id number] RHEUMATOID FACTOR-QUANT (864 31)Ordered By: .Net Developer on 04-22-2009 Rheumatoid factor Qn 8.1 {IU/mL} Normal 0.0-13.9 [facility] Work Phone: Comment on above: PATIENT WAS FASTINGP ERFORMED BY: S7 [employer] Okg0322 [facility] [id number] BY: FixyaRobert [facility] RahwayKodbfa2769 [facility] [id number] BY: Fixya[address] [id number] Rheumatoid factor Qn 8.1 [IU]/mL Normal 0.0-13.9 [facility] prehensive Internal Medicine; [facility] Work Phone: SED RATE ERYTHROCYTE ([id number]) Ordered By: .Net Developer on 04-22-2009 ESR Velocity (Bld) 4 mm/h Normal 0-15 [facility] Internal Medicine Work Phone: Comment on above: PATIENT WAS FASTINGP ERFORMED BY: S7 [employer] Hgq8728 [facility] [id number] BY: FixyaRobert Wood [facility] at RahwayYfgklx1429 [facility] [id number] BY: Openet[address] [id number] TSH ([id number])Ordered By: Syste m Welcome Desk Agent on 04-22-2009 Thyrotropin Qn 2.740 {uIU/mL} Normal 0.450-4.500 Compr ehensive Internal Medicine Work Phone: Comment on above: Effective May 04, 2009, TSH reference interval for11 - 19 years will be changing to: 0.450 - 4.500 uIU/mLReference interval for all other ages will NOT be affected. PATIENT WAS FASTINGP ERFORMED BY: S7 [facility] Qgt4716 [facility] [id number] BY: FixyaSarah [place] 8782170 [facility] [id number] BY: Fixya[address] [id number] URINALYSIS, W/ MICRO ([id number]) Ordered By: .Net Developer on 04-22-2009 Appearance Nom (U) Clear Normal Compre hensive Internal Medicine Work Phone: Comment on above: PATIENT WAS FASTINGP ERFORMED BY: S7 LipoSciGradwell [address] [place] [address] [id number] BY: Fixya Ksjbbp3104 [facility] [id number] BY: Fixya[address] [id number] Bilirubin Ql (U) Negative Normal Comprehe nsive Internal Medicine Work Phone: Comment on above: PATIENT WAS FASTINGP ERFORMED BY: S7 [employer] Flv3940 [facility] [id number] BY: FixyaSarah [place] 8782170 [facility] [id number] BY: Openet[address] [id number] Bilirubin Ql (U) Negative Normal Comprehe nsive Internal Medicine; [facility] Work Phone: Color Nom (U) Yellow Normal Comprehensi ve Internal Medicine Work Phone: Comment on above: PATIENT WAS FASTINGP ERFORMED BY: [facility] Akr3202 [facility] [id number] BY: PORSHA [employer] Mwdiaz8475 [facility] [id number] BY: [address] [id number] Glucose Ql (U) Negative Normal Comprehens olivia Internal Medicine Work Phone: Comment on above: PATIENT WAS FASTINGP ERFORMED BY: S7 [employer] Dcx9964 [facility] [id number] BY: PORSHA [facility] Espkre2412 [facility] [id number] BY: [address] [id number] Glucose Ql (U) Negative Normal Comprehens olivia [facility] Medicine; [facility] Work Phone: Hemoglobin Ql (U) Negative Normal Compreh ensive Internal Medicine Work Phone: Comment on above: PATIENT WAS FASTINGP ERFORMED BY: S7 [employer] Jjl6538 [facility] [id number] BY: PORSHA LabCoSarah [place]ille 8782170 [facility] [id number] BY: [address] [id number] Hemoglobin Ql (U) Negative Normal Compreh ensive Internal Medicine; [facility] Work Phone: Hemoglobin Test strip Ql (U) Negative Normal [facility] Work Phone: Ketones Ql (U) Negative Normal Comprehens olivia [facility] Work Phone: Comment on above: PATIENT WAS FASTINGP ERFORMED BY: S7 [employer] Cxz8451 [facility] [id number] BY: PORSHA [employer] Cfsnqb8818 [facility] [id number] BY: [address] [id number] Ketones Ql (U) Negative Normal Comprehens olivia [facility]; [facility] Work Phone: Leukocyte esterase Test strip Ql (U) Negative Normal [facility] Work Phone: Comment on above: PATIENT WAS FASTINGP ERFORMED BY: S7 [employer] Sxm4158 [facility] [id number] BY: PORSHA [facility] Ldbixc8960 [address]iga RoadDublin [place] [id number] BY: LabCo[address] [id number] Leukocyte esterase Test strip Ql (U) Negative Normal [facility]; [facility] Work Phone: Microscopic observation LM Nom (Urine sed) See below: Normal [facility] Work Phone: Comment on above: PATIENT WAS FASTINGP ERFORMED BY: S7 [employer] Dno6687 [facility] [id number] BY: PORSHA [facility] Xbnpmd6480 Zuniga RoadDuin [place] [id number] BY: LabCo[address] [id number] Nitrite Ql (U) Negative Normal Comprehens olivia [facility] Work Phone: Comment on above: PATIENT WAS FASTINGP ERFORMED BY: S7 [employer] Cvo6244 [facility] [id number] BY: PORSHA [employer] Clxdid4932 Zuniga RoadAtrium Health [facility] [id number] BY: Lab[address] [id number] Nitrite Ql (U) Negative Normal Comprehens olivia [facility]; [facility] Work Phone: Nitrite Test strip Ql (U) Negative Normal [facility] Work Phone: pH (U) 7.0 [pH] Normal 5.0-7.5 [facility] Work Phone: Comment on above: PATIENT WAS FASTINGP ERFORMED BY: S7 [employer] Vav9083 [facility] [id number] BY: PORSHA [facility] Gvxwas9884 [facility] [id number] BY: Fixya[address] [id number] pH Test strip (U) 7.0 [pH] Normal 5.0-7.5 Compreh ensive Internal Medicine Work Phone: Protein Ql (U) 1+ Abnormal Comprehens olivia [facility] Work Phone: Comment on above: PATIENT WAS FASTINGP ERFORMED BY: S7 [employer] Qou9156 [facility] [id number] BY: PORSHA [employer] Ptalpx8788 [facility] [id number] BY: Fixya[address] [id number] Protein Test strip Ql (U) 1+ Abnormal [facility] Work Phone: Specific gravity Relative Density (U) 1.029 1 Normal 1.005-1.030 Comprehensi ve Internal Medicine Work Phone: Comment on above: PATIENT WAS FASTINGP ERFORMED BY: S7 [employer] Vqv6537 [facility] [id number] BY: PORSHA LabMilestone Systemslewis SalazarXxenio0070 [facility] [id number] BY: Fixya[address] [id number] Urobilinogen (U) [Mass/Vol] 1.0 mg/dL Normal 0.0-1.9 [facility]; [facility] Work Phone: Urobilinogen Test strip mass conc (U) 1.0 mg/dL Normal 0.0-1.9 Comprehensiv e Internal Medicine Work Phone: Comment on above: PATIENT WAS FASTINGP ERFORMED BY: S7 [employer] Skk5280 [facility] [id number] BY: PORSHA [employer] Pcurgx5330 [facility] [id number] BY: Openet[address] [id number] CBCD,SMEAR DIFFOrdered By: Flora mirandatem Welcome Desk Agent on 06-18-2008 Band form neutrophils/100 WBC (Bld) 4 % Normal 0-5 [facility] Work Phone: Band form neutrophils/100 WBC Manual cnt (Bld) 4 % Normal 0-5 [facility] Work Phone: Eosinophils/100 WBC (Bld) 5 % Normal 0-5 [facility] Work Phone: Eosinophils/100 WBC Auto (Bld) 5 % Normal 0-5 [facility] Work Phone: Erythrocyte distribution width Auto Ratio (RBC) 12.1 % Normal 11.6-14.6 [facility] Work Phone: Erythrocyte distribution width Ratio (RBC) 12.1 % Normal 11.6-14.6 [facility] Work Phone: Hematocrit Auto Volume Fraction (Bld) 41.4 % Normal 40-54 [facility] Work Phone: Hematocrit Volume Fraction (Bld) 41.4 % Normal 40-54 [facility] Work Phone: Hemoglobin mass conc (Bld) 14.6 g/dL Normal 14.0-18.0 [facility] Work Phone: Lymphocytes/100 WBC (Bld) 25 % Normal 19-41 [facility] Work Phone: Lymphocytes/100 WBC Auto (Bld) 25 % Normal 19-41 [facility] Work Phone: MCH Auto Entitic mass (RBC) 32.0 pg Normal 27.0-32.0 [facility] Work Phone: MCH Entitic mass (RBC) 32.0 pg Normal 27.0-32.0 [facility] Work Phone: MCHC Auto mass conc (RBC) 35.2 g/dL Normal 32-36 [facility] Work Phone: MCHC mass conc (RBC) 35.2 g/dL Normal 32-36 Comp [facility] Internal [facility] Work Phone: MCV Auto Entitic volume (RBC) 90.9 fL Normal 80-94 [facility] Work Phone: MCV Entitic volume (RBC) 90.9 fL Normal 80-94 [facility] Work Phone: Monocytes/100 WBC (Bld) 9 % Normal 0-10 [facility] Work Phone: Monocytes/100 WBC Auto (Bld) 9 % Normal 0-10 [facility] Work Phone: Platelets #/vol (Bld) 253 10*3/uL Normal 150-450 [facility] Work Phone: Platelets #/vol (Bld) SeeNote Normal Com prehensive Internal Medicine Work Phone: Comment on above: Result: ADEQUATE Platelets Auto #/vol (Bld) 253 10*3/uL Normal 150-450 [facility] Internal Medicine Work Phone: RBC #/vol (Bld) 4.56 {M/mm3} Abnormal 4.6-6.2 Compreh [facility] Internal Medicine Work Phone: RBC Auto #/vol (Bld) 4.56 {M/mm3} Abnormal 4.6-6.2 Co [facility] Internal Medicine Work Phone: WBC #/vol (Bld) 8.0 10*3/uL Normal 4.4-11.0 [facility] Work Phone: WBC Auto #/vol (Bld) 8.0 10*3/uL Normal 4.4-11.[address] [facility] Work Phone: CBCD,SMEAR DIFF SeeNote Normal [facility] Work Phone: Comment on above: Result: NORM C+C Result: ADEQUATE CBCD,SMEAR DIFF 57 % Normal 47-70 [facility] Work Phone: CBCD,SMEAR DIFF 100 1 Normal [facility] Work Phone: COMP METABOLICOrdered By: Sy stem Welcome Desk Agent on 06-18-2008 Albumin mass conc 3.7 g/dL Normal 3.4-5.0 Compreh ensive Internal Medicine Work Phone: Albumin/Globulin mass ratio 1.2 {RATIO} Normal 0.9-2.4 [facility] Internal Medicine Work Phone: ALP enzyme act/vol 74 U/L Normal 50-136 [facility] Internal Medicine Work Phone: ALT enzyme act/vol 70 U/L Abnormal 30-65 [facility] Internal Medicine Work Phone: Anion gap 3 molar conc 6 mmol/L Normal 5-15 Co mprensive Internal Medicine Work Phone: Anion gap molar conc 6 mmol/L Normal 5-15 Comp [facility] Internal Medicine Work Phone: AST enzyme act/vol 31 U/L Normal 15-37 [facility] Internal Medicine Work Phone: Bilirubin mass conc 0.33 mg/dL Normal 0.00-1.00 [facility] Internal Medicine Work Phone: Calcium mass conc 8.6 mg/dL Normal 8.5-10.1 [facility] Internal Medicine Work Phone: Chloride molar conc 103 mmol/L Normal 98-107 [facility] Internal Medicine Work Phone: CO2 molar conc 26.7 mmol/L Normal 21.0-32.0 [facility] Internal Medicine Work Phone: Creatinine mass conc 1.1 mg/dL Normal 0.8-1.3 [facility] Internal Medicine Work Phone: GFR/1.73 sq M predicted among blacks MDRD vol rate/area (S/P/Bld) 96 mL/min/{1.73_m2} Normal Comprehensiv e Internal Medicine Work Phone: GFR/1.73 sq M.predicted MDRD vol rate/area 79 mL/min/{1.73_m2} Normal Comprehensiv e Internal Medicine Work Phone: Globulin Calculated mass conc (S) 3.1 g/dL Normal 2.7-4.2 [facility] Internal Medicine Work Phone: Globulin mass conc (S) 3.1 g/dL Normal 2.7-4.2 Co mprehensive Internal Medicine Work Phone: Glucose mass conc 93 mg/dL Normal 70-110 Compreh ensive Internal Medicine Work Phone: Potassium molar conc 3.6 mmol/L Normal 3.5-5.1 Comp rehensive Internal Medicine Work Phone: Protein mass conc 6.8 g/dL Normal 6.4-8.2 Compreh ensive Internal Medicine Work Phone: Sodium molar conc 136 mmol/L Normal 136-145 Compreh ensive Internal Medicine Work Phone: Urea nitrogen mass conc 16 mg/dL Normal 7-18 [facility] Work Phone: Urea nitrogen/Creatinine mass ratio 14.5 {RATIO} Normal 10-20 [facility] Work Phone: MICROALBOrdered By: Bobby goff on 06-18-2008 Creatinine mass conc 3.2 {mg/g_CRE} Normal [facility] Work Phone: Creatinine mass conc 223.6 mg/dL Normal Com prehensive Internal Medicine Work Phone: MICROALB 223.6 mg/dL Normal [facility] Work Phone: MICROALB 7.3 mg/L Normal [facility] Work Phone: TSHOrdered By: System Manage r on 06-18-2008 Thyrotropin Qn 3.56 {uIU/mL} Normal 0.34-4.82 Compreh ensive Internal Medicine Work Phone: Rapid Strep Test, Office ([phone])Ordered By: Tona Melvin on 05-04-2007 S. pyogenes Ag EIA Ql (Throat) Negative Normal [facility]; [facility] Work Phone: S. pyogenes Ag IA Ql (Unsp spec) Negative Normal [facility] Work Phone: Comment on above: AW negative Upper Respiratory CultureOrd ered By: .Net Developer on 05-04-2007 Bacteria identified Respiratory culture Nom (Unsp spec) Final report Normal [facility] Work Phone: Comment on above: Clinical Information : SRC:TH PERFORMED BY: Fixya Kyvlgm9501 [facility] [id number] Bacteria identified Respiratory culture Nom (Unsp spec) RRF Normal [facility] Work Phone: Comment on above: Routine respiratory barbara Clinical Information : SRC:TH PERFORMED BY: Fixya Lnwurs5497 [place] [facility] Mail[facility] [id number] CBCD,SMEAR DIFFOrdered By: Flora mirandatem Welcome Desk Agent on 04-24-2007 Erythrocyte distribution width Auto Ratio (RBC) 12.3 % Normal 11.6-14.6 [facility] Work Phone: Erythrocyte distribution width Ratio (RBC) 12.3 % Normal 11.6-14.6 [facility] Work Phone: Hematocrit Auto Volume Fraction (Bld) 42.3 % Normal 40-54 [facility] Work Phone: Hematocrit Volume Fraction (Bld) 42.3 % Normal 40-54 [facility] Work Phone: Hemoglobin mass conc (Bld) 14.9 g/dL Normal 14.0-18.0 [facility] Work Phone: Lymphocytes/100 WBC (Bld) 32 % Normal 19-41 [facility] Work Phone: Lymphocytes/100 WBC Auto (Bld) 32 % Normal 19-41 [facility] Work Phone: MCH Auto Entitic mass (RBC) 32.0 pg Normal 27.0-32.0 [facility] Work Phone: MCH Entitic mass (RBC) 32.0 pg Normal 27.0-32.0 Co mprehensive Internal Medicine Work Phone: MCHC Auto mass conc (RBC) 35.2 g/dL Normal 32-36 [facility] Work Phone: MCHC mass conc (RBC) 35.2 g/dL Normal 32-36 [facility] Work Phone: MCV Auto Entitic volume (RBC) 90.8 fL Normal 80-94 [facility] Work Phone: MCV Entitic volume (RBC) 90.8 fL Normal 80-94 [facility] Work Phone: Monocytes/100 WBC (Bld) 5 % Normal 0-10 [facility] Work Phone: Monocytes/100 WBC Auto (Bld) 5 % Normal 0-10 [facility] Work Phone: Platelets #/vol (Bld) SeeNote Normal Com prehensive Internal Medicine Work Phone: Comment on above: Result: ADEQUATE Platelets #/vol (Bld) 287 10*3/uL Normal 150-450 [facility] Work Phone: Platelets Auto #/vol (Bld) 287 10*3/uL Normal 150-450 [facility] Work Phone: RBC #/vol (Bld) 4.67 {M/mm3} Normal 4.6-6.2 [facility]pre[facility] Work Phone: RBC Auto #/vol (Bld) 4.67 {M/mm3} Normal 4.6-6.2 [facility] Work Phone: WBC #/vol (Bld) 8.0 10*3/uL Normal 4.4-11.0 [facility]he [facility] Internal Medicine Work Phone: WBC Auto #/vol (Bld) 8.0 10*3/uL Normal 4.4-11.0 [facility] prehensive Internal Medicine Work Phone: CBCD,SMEAR DIFF 63 % Normal 47-70 Comprehen [facility] Internal Medicine Work Phone: CBCD,SMEAR DIFF 100 1 Normal Comprehen [facility] Internal [facility] Work Phone: CBCD,SMEAR DIFF SeeNote Normal Comprehen [facility] Internal Medicine Work Phone: Comment on above: Result: ADEQUATE Result: NORM C+C COMP METABOLICOrdered By: Sy stem Welcome Desk Agent on 04-24-2007 Albumin mass conc 4.3 g/dL Normal 3.4-5.0 Compreh ensive Internal Medicine Work Phone: Albumin/Globulin mass ratio 1.6 {RATIO} Normal 0.9-2.4 [facility] Internal Medicine Work Phone: ALP enzyme act/vol 65 U/L Normal 50-136 [facility] Internal Medicine Work Phone: ALT enzyme act/vol 105 [iU]/L Abnormal 30-65 [facility] Internal Medicine Work Phone: Anion gap 3 molar conc 8 mmol/L Normal 5-15 Co [facility] Internal Medicine Work Phone: Anion gap molar conc 8 mmol/L Normal 5-15 [facility] Internal Medicine Work Phone: AST enzyme act/vol 72 U/L Abnormal 15-37 [facility] Internal Medicine Work Phone: Bilirubin mass conc 0.65 mg/dL Normal 0.00-1.00 [facility] Internal Medicine Work Phone: Calcium mass conc 9.0 mg/dL Normal 8.5-10.1 Compreh [facility] Internal Medicine Work Phone: Chloride molar conc 102 mmol/L Normal 98-107 [facility] Internal Medicine Work Phone: CO2 molar conc 28.9 mmol/L Normal 21.0-32.0 [facility] Internal [facility] Work Phone: Comment on above: Please Note Refer ence Interval Change Creatinine mass conc 1.1 mg/dL Normal 0.8-1.3 [facility] Internal Medicine Work Phone: Globulin Calculated mass conc (S) 2.7 g/dL Normal 2.7-4.2 [facility] Internal Medicine Work Phone: Comment on above: Please Note Refer ence Interval Change Globulin mass conc (S) 2.7 g/dL Normal 2.7-4.2 Co [facility] Internal Medicine Work Phone: Comment on above: Please Note Refer ence Interval Change Glucose mass conc 90 mg/dL Normal 70-110 [facility] Internal Medicine Work Phone: Potassium molar conc 3.7 mmol/L Normal 3.5-5.1 Comp rehensive Internal Medicine Work Phone: Protein mass conc 7.0 g/dL Normal 6.4-8.2 Compreh ensive Internal Medicine Work Phone: Sodium molar conc 139 mmol/L Normal 136-145 Compreh ensive Internal Medicine Work Phone: Urea nitrogen mass conc 15 mg/dL Normal 7-18 [facility] Work Phone: Urea nitrogen/Creatinine mass ratio 13.6 {RATIO} Normal 10-20 [facility] Work Phone: LIPIDOrdered By: System Shweta piter on 04-24-2007 Cholesterol in HDL mass conc 32 mg/dL Abnormal [facility] Work Phone: Comment on above: Reference Range HDL <40 mg/dL Low HDL Cholesterol HDL >or= 60 mg/dL High HDL Cholesterol Cholesterol in LDL mass conc 66 mg/dL Normal 0-130 [facility] Work Phone: Cholesterol in VLDL mass conc 31 mg/dL Normal 5-40 [facility] Work Phone: Cholesterol mass conc 129 mg/dL Normal Com prehensive Internal Medicine Work Phone: Comment on above: <200 mg/dL Desirable 200-240 mg/dL Borderline >240 mg/dL High Risk Triglyceride mass conc 155 mg/dL Normal Co mprehensive Internal Medicine Work Phone: Comment on above: Serum Triglycerides Reference Interval Normal <150 mg/dL Borderline high 150 - 199 mg/dL High 200 - 499 mg/dL Very High > or = 500 mg/dL GLUPOrdered By: System Manag er on 10-13-2006 GLUP 111 mg/dL Normal [facility] Work Phone: Comment on above: GLU,2HPPG 75gm GLUC PPG GLUP from [id number]. LIPIDOrdered By: System Shweta piter on 07-04-2006 Cholesterol in HDL mass conc 38 mg/dL Normal [facility] Work Phone: Comment on above: Reference Range HDL <40 mg/dL Low HDL Cholesterol HDL >or= 60 mg/dL High HDL Cholesterol Cholesterol in LDL mass conc 68 mg/dL Normal 0-130 [facility] Work Phone: Cholesterol in VLDL mass conc 19 mg/dL Normal 5-40 [facility] Work Phone: Cholesterol mass conc 125 mg/dL Normal Com prehensive [facility] Work Phone: Comment on above: <200 mg/dL Desirable 200-240 mg/dL Borderline >240 mg/dL High Risk Triglyceride mass conc 95 mg/dL [facility] Work [facility]: Comment on above: Serum Triglycerides Reference Interval Normal <150 mg/dL Borderline high 150 - 199 mg/dL High 200 - 499 mg/dL Very High > or = 500 mg/dL LIVEROrdered By: System Shweta piter on 07-04-2006 Albumin mass conc 4.2 g/dL Normal 3.4-5.0 Compreh [facility] Work Phone: ALP enzyme act/vol 65 U/L Normal 50-136 [facility] Work [facility]: ALT enzyme act/vol 96 [iU]/L Abnormal 30-65 [facility] Work Phone: AST enzyme act/vol 54 U/L Abnormal 15-37 [facility] Internal Medicine Work Phone: Bilirubin mass conc 0.56 mg/dL Normal 0.00-1.00 Compr [facility] Internal Medicine Work Phone: Bilirubin.direct mass conc 0.11 mg/dL Normal 0.00-0.30 [facility] Medicine Work Phone: Protein mass conc 7.0 g/dL Normal 6.4-8.2 Compreh [facility] Work Phone: BMPOrdered By: System [employer] on 05-31-2006 Anion gap 3 molar conc 10 mmol/L Normal 5-15 Co [facility] Work Phone: Anion gap molar conc 10 mmol/L Normal 5-15 Comp rehensive [facility] Medicine Work Phone: Calcium mass conc 9.2 mg/dL Normal 8.5-10.1 Compreh [facility] Work Phone: Chloride molar conc 102 mmol/L Normal 98-107 Compr [facility] Internal Medicine Work Phone: CO2 molar conc 28.7 mmol/L Normal 22.0-29.0 [facility] Work Phone: Creatinine mass conc 1.1 mg/dL Normal 0.8-1.3 [facility] Internal Medicine Work Phone: Glucose mass conc 79 mg/dL Normal 70-110 [facility] Work Phone: Potassium molar conc 4.1 mmol/L Normal 3.5-5.1 [facility]: Sodium molar conc 141 mmol/L Normal 136-145 [facility] Work Phone: Urea nitrogen mass conc 18 mg/dL Normal 7-18 [facility] Work Phone: Urea nitrogen/Creatinine mass ratio 16.4 {RATIO} Normal 10-20 [facility] Work Phone: LIVEROrdered By: [employer] on 05-31-2006 Albumin mass conc 4.6 g/dL Normal 3.4-5.0 Compreh [facility] Internal Medicine Work Phone: ALP enzyme act/vol 59 U/L Normal 50-136 [facility] Internal Medicine Work Phone: ALT enzyme act/vol 138 [iU]/L Abnormal 30-65 [facility] Internal Medicine Work Phone: AST enzyme act/vol 60 U/L Abnormal 15-37 [facility] Internal Medicine Work Phone: Bilirubin mass conc 0.66 mg/dL Normal 0.00-1.00 [facility] Internal Medicine Work Phone: Bilirubin.direct mass conc 0.12 mg/dL Normal 0.00-0.30 [facility] Medicine Work Phone: Protein mass conc 7.4 g/dL Normal 6.4-8.2 Compreh [facility] Internal Medicine Work Phone: PFLIPOrdered By: [employer] on 05-31-2006 Cholesterol in HDL mass conc 38 mg/dL Normal [facility] Work Phone: Comment on above: Reference Range HDL <40 mg/dL Low HDL Cholesterol HDL >or= 60 mg/dL High HDL Cholesterol Cholesterol in LDL mass conc 55 mg/dL Normal 0-130 [facility] Work Phone: Cholesterol in VLDL mass conc 19 mg/dL Normal 5-40 [facility] Work Phone: Cholesterol mass conc 112 mg/dL Normal Com prehensive [facility] Work Phone: Comment on above: <200 mg/dL Desirable 200-240 mg/dL Borderline >240 mg/dL High Risk Triglyceride mass conc 94 mg/dL Normal Co [facility] Work Phone: Comment on above: Serum Triglycerides Reference Interval Normal <150 mg/dL Borderline high 150 - 199 mg/dL High 200 - 499 mg/dL Very High > or = 500 mg/dL Vital Signs Date Time Vital Sign Value Performing Clinician Facility 06-25-2024 08:35-0400 Body height 167.[address] Brittani Shepherd DO Work Phone: [facility] 06-11-2024 12:59-0500 Body temperature 97.59 [degF] Toribio Moe MD Work Phone: [facility] 06-11-2024 12:59-0500 Body weight 83.46 kg Toribio Moe MD Work Phone: [facility] 08-22-2022 10:59-0400 Body height 170.18 cm Rayne Emmanuel MA [facility] Work Phone: 08-22-2022 10:59-0400 Body mass index (BMI) [Ratio] 29.37 kg/m2 Rayne Emmanuel MA [facility]; [facility] Work Phone: 08-22-2022 10:59-0400 Body surface area Derived from formula 1.97 m2 Rayne Emmanuel MA [facility]; [facility] Work Phone: 08-22-2022 10:59-0400 Body temperature 97.1 [degF] Rayne Emmanuel MA [facility]; [facility] Work Phone: 08-22-2022 10:59-0400 Body weight 85.05 kg Rayne Emmanuel MA [facility]; [facility] Work Phone: 08-22-2022 10:59-0400 Diastolic blood pressure 80 mm[Hg] Rayne Emmanuel MA [facility]; [facility] Work Phone: 08-22-2022 10:59-0400 Heart rate 82 /min Rayne Emmanuel MA [facility]; [facility] Work Phone: 08-22-2022 10:59-0400 SaO2% (BldA) [Mass fraction] 97 % Rayne Emmanuel MA [facility]; [facility] Work Phone: 08-22-2022 10:59-0400 Systolic blood pressure 142 mm[Hg] aRyne Emmanuel MA [facility]; [facility] Work Phone: 11-08-2021 14:24-0400 Body height 170.18 cm Gretel Melvin [facility]; [facility] Work Phone: 11-08-2021 14:24-0400 Body mass index (BMI) [Ratio] 29.37 kg/m2 Gretel Melvin [facility] Work Phone: 11-08-2021 14:24-0400 Body surface area Derived from formula 1.97 m2 Gretel Melvin [facility]; [facility] Work Phone: 11-08-2021 14:24-0400 Body temperature 97.4 [degF] Gretel Melvin [facility]; [facility] Work Phone: 11-08-2021 14:24-0400 Body weight 85.05 kg Gretel Melvin [facility]; [facility] Work Phone: 11-08-2021 14:24-0400 Diastolic blood pressure 78 mm[Hg] Gretel Melvin [facility]; [facility] Work Phone: 11-08-2021 14:24-0400 Heart rate 74 /min Gretel Melvin [facility]; [facility] Work Phone: 11-08-2021 14:24-0400 Respiratory rate 16 /min Gretel Melvin [facility]; [facility] Work Phone: 11-08-2021 14:24-0400 SaO2% (BldA) [Mass fraction] 98 % Gretel Melvin [facility]; [facility] Work Phone: 11-08-2021 14:24-0400 Systolic blood pressure 136 mm[Hg] Gretel Melvin [facility]; [facility] Work Phone: 08-02-2021 09:21-0400 Body height 170.18 cm Crystal Cruz LPN [facility]; [facility] Work Phone: 08-02-2021 09:21-0400 Body mass index (BMI) [Ratio] 29.99 kg/m2 Crystal Cruz LPN [facility]; [facility] Work Phone: 08-02-2021 09:21-0400 Body surface area Derived from formula 1.99 m2 Crystal Cruz LPN [facility]; [facility] Work Phone: 08-02-2021 09:21-0400 Body temperature 97.3 [degF] Crystal Cruz LPN [facility]; [facility] Work Phone: 08-02-2021 09:21-0400 Body weight 86.86 kg Crystal Cruz LPN [facility]; [facility] Work Phone: 08-02-2021 09:21-0400 Diastolic blood pressure 78 mm[Hg] Crystal Cruz LPN [facility]; [facility] Work Phone: 08-02-2021 09:21-0400 Heart rate 81 /min Crystal Cruz LPN [facility]; [facility] Work Phone: 08-02-2021 09:21-0400 Respiratory rate 16 /min [facility]; [facility] Work Phone: 08-02-2021 09:21-0400 SaO2% (BldA) [Mass fraction] 98 % [facility]; [facility] Work Phone: 08-02-2021 09:21-0400 Systolic blood pressure 118 mm[Hg] [facility]; [facility] Work Phone: 08-07-2020 07:48-0400 Body height 170.18 cm [facility]; [facility] Work Phone: 08-07-2020 07:48-0400 Body mass index (BMI) [Ratio] 29.3 kg/m2 [facility]; [facility] Work Phone: 08-07-2020 07:48-0400 Body surface area Derived from formula 1.97 m2 [facility]; [facility] Work Phone: 08-07-2020 07:48-0400 Body temperature 97.1 [degF] Gretel Gravius [facility]; [facility] Work Phone: 08-07-2020 07:48-0400 Body weight 84.85 kg [facility]; [facility] Work Phone: 08-07-2020 07:48-0400 Diastolic blood pressure 90 mm[Hg] Gretel Gravius [facility]; [facility] Work Phone: 08-07-2020 07:48-0400 Heart rate 83 /min Gretel Gravius [facility]; [facility] Work Phone: 08-07-2020 07:48-0400 Respiratory rate 18 /min Gretel Gravius [facility]; [facility] Work Phone: 08-07-2020 07:48-0400 SaO2% (BldA) [Mass fraction] 97 % Gretel Gravius [facility]; [facility] Work Phone: 08-07-2020 07:48-0400 Systolic blood pressure 136 mm[Hg] Gretel Melvin [facility]; [facility] Work Phone: 07-29-2020 08:50-0400 Body height 170.18 cm [facility]; [facility] Work Phone: 07-29-2020 08:50-0400 Body mass index (BMI) [Ratio] 30.86 kg/m2 [facility]; [facility] Work Phone: 07-29-2020 08:50-0400 Body mass index (BMI) [Ratio] 29.3 kg/m2 [facility]; [facility] Work Phone: 07-29-2020 08:50-0400 Body surface area Derived from formula 2.01 m2 [facility]; [facility] Work Phone: 07-29-2020 08:50-0400 Body surface area Derived from formula 1.97 m2 [facility]; [facility] Work Phone: 07-29-2020 08:50-0400 Body temperature 96.9 [degF] [facility]; [facility] Work Phone: 07-29-2020 08:50-0400 Body weight 89.38 kg [facility]; [facility] Work Phone: 07-29-2020 08:50-0400 Body weight 84.85 kg [facility]; [facility] Work Phone: 07-29-2020 08:50-0400 Diastolic blood pressure 72 mm[Hg] [facility]; [facility] Work Phone: 07-29-2020 08:50-0400 Heart rate 93 /min [facility]; [facility] Work Phone: 07-29-2020 08:50-0400 Respiratory rate 16 /min [facility]; [facility] Work Phone: 07-29-2020 08:50-0400 SaO2% (BldA) [Mass fraction] 97 % [facility]; [facility] Work Phone: 07-29-2020 08:50-0400 Systolic blood pressure 126 mm[Hg] [facility] Work Phone: 06-24-2019 14:35-0400 BMI (Body Mass Index) 30.86 kg/m2 Gretel Melvin [facility] Work Phone: 06-24-2019 14:35-0400 Body Temperature 96.1 [degF] Gretel Melvin [facility] Work Phone: Comment on above: Method: Temporal 06-24-2019 14:35-0400 Body weight 89.38 kg Gretel Melvin [facility] Work Phone: 06-24-2019 14:35-0400 BP Diastolic 74 mm[Hg] Gretel Melvin [facility] Work Phone: Comment on above: Patient Position: Sitting; Cuff Location : Left Arm; Cuff Size: Standard 06-24-2019 14:35-0400 BP Systolic 111 mm[Hg] Gretel Melvin [facility] Work Phone: Comment on above: Patient Position: Sitting; Cuff Location : Left Arm; Cuff Size: Standard 06-24-2019 14:35-0400 BSA (Body Surface Area) 2.01 m2 Gretel Melvin [facility] Work Phone: 06-24-2019 14:35-0400 Height 170.18 cm Gretel Melvin [facility] Work Phone: 06-24-2019 14:35-0400 Pulse (Heart Rate) 103 /min Gretel Melvin [facility] Work Phone: Comment on above: Pattern: Regular 06-24-2019 14:35-0400 Pulse Oximetry 99 % Brittani Joao [facility] Work Phone: Comment on above: Room air 06-24-2019 14:35-0400 Respiratory Rate 18 /min Gretel Melvin [facility] Internal [facility] Work Phone: Comment on above: Pattern: Unlabored 06-24-2019 14:35-0400 SaO2% (BldA) [Mass fraction] 99 % Gretel Melvin [facility]; [facility] Work Phone: 06-19-2019 10:07-0400 BMI (Body Mass Index) 30.71 kg/m2 Gretel Melvin [facility] Work Phone: 06-19-2019 10:07-0400 Body Temperature 96.7 [degF] Gretel Melvin [facility] Work Phone: Comment on above: Method: Temporal 06-19-2019 10:07-0400 Body weight 88.93 kg Gretel Melvin [facility] Work Phone: 06-19-2019 10:07-0400 BP Diastolic 80 mm[Hg] Gretel Melvin [facility] Work Phone: Comment on above: Patient Position: Sitting; Cuff Location : Left Arm; Cuff Size: Standard 06-19-2019 10:07-0400 BP Systolic 118 mm[Hg] Gretel Melvin [facility] Work Phone: Comment on above: Patient Position: Sitting; Cuff Location : Left Arm; Cuff Size: Standard 06-19-2019 10:07-0400 BSA (Body Surface Area) 2.01 m2 Gretel Melvin [facility] Internal Medicine Work Phone: 06-19-2019 10:07-0400 Height 170.18 cm Gretel Melvin [facility] Work Phone: 06-19-2019 10:07-0400 Pulse (Heart Rate) 90 /min Gretel Melvin [facility] Work Phone: Comment on above: Pattern: Regular 06-19-2019 10:07-0400 Pulse Oximetry 98 % Brittani Shepherd [facility] Work Phone: Comment on above: Room air 06-19-2019 10:07-0400 Respiratory Rate 18 /min Gretel Mlevin [facility] Work Phone: Comment on above: Pattern: Unlabored 06-19-2019 10:07-0400 SaO2% (BldA) [Mass fraction] 98 % Gretel Melvin [facility]; [facility] Work Phone: 04-23-2019 08:05-0500 BMI (Body Mass Index) 30.71 kg/m2 Chalino Olmedo LPN Comprehen s[facility] Work Phone: 04-23-2019 08:05-0500 Body Temperature 97.6 [degF] Chalino Olmedo LPN [facility] Work Phone: Comment on above: Method: Temporal 04-23-2019 08:05-0500 Body weight 88.93 kg Chalino Olmedo LPN [facility] Work Phone: 04-23-2019 08:05-0500 BP Diastolic 82 mm[Hg] Chalino Olmedo LPN [facility] Work Phone: Comment on above: Patient Position: Sitting; Cuff Location : Left Arm; Cuff Size: Standard 04-23-2019 08:05-0500 BP Systolic 130 mm[Hg] Chalino Olmedo LPN [facility] Work Phone: Comment on above: Patient Position: Sitting; Cuff Location : Left Arm; Cuff Size: Standard 04-23-2019 08:05-0500 BSA (Body Surface Area) 2.01 m2 Chalino Olmedo LPN [facility] Work Phone: 04-23-2019 08:05-0500 Height 170.18 cm Chalino Olmedo LPN [facility] Work Phone: 04-23-2019 08:05-0500 Pulse (Heart Rate) 93 /min Chalino Olmedo LPN Comprehensiv e [facility] Work Phone: Comment on above: Pattern: Regular 04-23-2019 08:05-0500 Pulse Oximetry 97 % Brittani Shepherd [facility] Work Phone: Comment on above: Room air 04-23-2019 08:05-0500 Respiratory Rate 16 /min Chalino Olmedo [facility] Work Phone: Comment on above: Pattern: Unlabored 04-23-2019 08:05-0500 SaO2% (BldA) [Mass fraction] 97 % Chalino Olmedo [facility]; [facility] Work Phone: 09-24-2018 11:31-0400 BMI (Body Mass Index) 30.58 kg/m2 Gretel Melvin [facility] Work Phone: 09-24-2018 11:31-0400 Body Temperature 97.2 [degF] Gretel Melvin [facility] Work Phone: Comment on above: Method: Temporal 09-24-2018 11:31-0400 Body weight 88.57 kg Gretel Melvin [facility] Work Phone: 09-24-2018 11:31-0400 BP Diastolic 96 mm[Hg] Gretel Melvin [facility] Work Phone: Comment on above: Patient Position: Sitting; Cuff Location : Left Arm; Cuff Size: Standard 09-24-2018 11:31-0400 BP Systolic 144 mm[Hg] Gretel Melvin [facility] Work Phone: Comment on above: Patient Position: Sitting; Cuff Location : Left Arm; Cuff Size: Standard 09-24-2018 11:31-0400 BSA (Body Surface Area) 2 m2 Gretel Melvin [facility] Work Phone: 09-24-2018 11:31-0400 Height 170.18 cm Gretel Melvin [facility] Work Phone: 09-24-2018 11:31-0400 Pulse (Heart Rate) 79 /min Gretel Melvin [facility] Work Phone: Comment on above: Pattern: Regular 09-24-2018 11:31-0400 Pulse Oximetry 94 % Brittani Joao [facility] Work Phone: Comment on above: Room air 09-24-2018 11:31-0400 Respiratory Rate 18 /min Gretel Melvin [facility] Work Phone: Comment on above: Pattern: Unlabored 09-24-2018 11:31-0400 SaO2% (BldA) [Mass fraction] 94 % Gretel Melvin [facility]; [facility] Work Phone: 09-24-2018 11:31-0400 Weight 88.57 kg Brittani Shepherd [facility] Work Phone: 09-21-2018 08:56-0400 BMI (Body Mass Index) 31.05 kg/m2 [employer] [facility] Work Phone: 09-21-2018 08:56-0400 Body Temperature 97.4 [degF] [employer] [facility] Work Phone: Comment on above: Method: Temporal 09-21-2018 08:56-0400 Body weight 89.93 kg [email or web address] [facility] Work Phone: 09-21-2018 08:56-0400 BP Diastolic 78 mm[Hg] [email or web address] [facility] Work Phone: Comment on above: Patient Position: Sitting; Cuff Location : Left Arm; Cuff Size: Standard 09-21-2018 08:56-0400 BP Systolic 128 mm[Hg] [email or web address] [facility] Work Phone: Comment on above: Patient Position: Sitting; Cuff Location : Left Arm; Cuff Size: Standard 09-21-2018 08:56-0400 BSA (Body Surface Area) 2.01 m2 [employer] [facility] Work Phone: 09-21-2018 08:56-0400 Height 170.18 cm [email or web address] [facility] Work Phone: 09-21-2018 08:56-0400 Pulse (Heart Rate) 77 /min [email or web address] [facility] Work Phone: Comment on above: Pattern: Regular 09-21-2018 08:56-0400 Pulse Oximetry 97 % Brittani Shepherd [facility] Work Phone: Comment on above: Room air 09-21-2018 08:56-0400 Respiratory Rate 19 /min [employer] [facility] Work Phone: Comment on above: Pattern: Unlabored 09-21-2018 08:56-0400 SaO2% (BldA) [Mass fraction] 97 % [employer] [facility]; [facility] Work Phone: 09-21-2018 08:56-0400 Weight 89.93 kg Brittani Shepherd [facility] Work Phone: 03-20-2018 08:43-0500 BMI (Body Mass Index) 28.58 kg/m2 Valeri Suarez [facility] Work Phone: 03-20-2018 08:43-0500 Body Temperature 96.8 [degF] Valeri Suarez [facility] Work Phone: Comment on above: Method: Temporal 03-20-2018 08:43-0500 Body weight 82.78 kg Valeri Suarez [facility] Work Phone: 03-20-2018 08:43-0500 BP Diastolic 84 mm[Hg] Valeri Suarez [facility] Work Phone: Comment on above: Patient Position: Sitting; Cuff Location : Left Arm; Cuff Size: Standard 03-20-2018 08:43-0500 BP Systolic 134 mm[Hg] Valeri Suarez [facility] Work Phone: Comment on above: Patient Position: Sitting; Cuff Location : Left Arm; Cuff Size: Standard 03-20-2018 08:43-0500 BSA (Body Surface Area) 1.95 m2 Valeri Suarez [facility] Work Phone: 03-20-2018 08:43-0500 Height 170.18 cm Valeri Suarez [facility] Work Phone: 03-20-2018 08:43-0500 Pulse (Heart Rate) 66 /min Valeri Suarez [facility] Work Phone: Comment on above: Pattern: Regular 03-20-2018 08:43-0500 Pulse Oximetry 99 % Brittani Shepherd [facility] Work Phone: Comment on above: Room air 03-20-2018 08:43-0500 Respiratory Rate 16 /min [facility] Work Phone: Comment on above: Pattern: Unlabored 03-20-2018 08:43-0500 SaO2% (BldA) [Mass fraction] 99 % Valeri Suarez [facility]; [facility] Work Phone: 03-20-2018 08:43-0500 Weight 82.78 kg Brittani Shepherd [facility] Work Phone: 01-12-2018 09:00-0400 BMI (Body Mass Index) 28.58 kg/m2 Melina Hook RN [facility] Work Phone: 01-12-2018 09:00-0400 Body Temperature 98.2 [degF] Melina L Monster RN [facility] Work Phone: Comment on above: Method: Temporal 01-12-2018 09:00-0400 Body weight 82.78 kg Melina L Long RN [facility] Work Phone: 01-12-2018 09:00-0400 BP Diastolic 70 mm[Hg] Melina L Long RN [facility] Work Phone: Comment on above: Patient Position: Sitting; Cuff Location : Left Arm; Cuff Size: Standard 01-12-2018 09:00-0400 BP Systolic 134 mm[Hg] Melina L Long RN [facility] Work Phone: Comment on above: Patient Position: Sitting; Cuff Location : Left Arm; Cuff Size: Standard 01-12-2018 09:00-0400 BSA (Body Surface Area) 1.95 m2 Melina L Long RN [facility] Work Phone: 01-12-2018 09:00-0400 Height 170.18 cm Melina L Long RN [facility] Work Phone: 01-12-2018 09:00-0400 Pulse (Heart Rate) 70 /min Melina L Monster RN [facility] Work Phone: Comment on above: Pattern: Regular 01-12-2018 09:00-0400 Pulse Oximetry 94 % Brittani Shepherd [facility] Work Phone: Comment on above: Room air 01-12-2018 09:00-0400 Respiratory Rate 16 /min Melina Hook RN [facility] Work Phone: Comment on above: Pattern: Unlabored 01-12-2018 09:00-0400 SaO2% (BldA) [Mass fraction] 94 % Melina Hook RN [facility]; [facility] Work Phone: 01-12-2018 09:00-0400 Weight 82.78 kg Brittani Shepherd [facility] Work Phone: 11-15-2017 09:49-0400 BMI (Body Mass Index) 28.58 kg/m2 Kalyani Hernandez RN [facility] Work Phone: 11-15-2017 09:49-0400 Body weight 82.78 kg Kalyani Hernandez RN [facility] Work Phone: 11-15-2017 09:49-0400 BP Diastolic 82 mm[Hg] Kalyani Hernandez RN [facility] Work Phone: Comment on above: Patient Position: Sitting; Cuff Location : Left Arm; Cuff Size: Standard 11-15-2017 09:49-0400 BP Systolic 128 mm[Hg] Kalyani Hernandez RN [facility] Work Phone: Comment on above: Patient Position: Sitting; Cuff Location : Left Arm; Cuff Size: Standard 11-15-2017 09:49-0400 BSA (Body Surface Area) 1.95 m2 Kalyani Hernandez RN [facility] Work Phone: 11-15-2017 09:49-0400 Height 170.18 cm Kalyani Hernandez RN [facility] Work Phone: 11-15-2017 09:49-0400 Pulse (Heart Rate) 80 /min Kalyani Hernandez RN [facility] Work Phone: Comment on above: Pattern: Regular 11-15-2017 09:49-0400 Pulse Oximetry 98 % Brittani Vogelon [facility] Work Phone: Comment on above: Room air 11-15-2017 09:49-0400 Respiratory Rate 18 /min Kalyani Hernandez RN [facility] Work Phone: Comment on above: Pattern: Unlabored 11-15-2017 09:49-0400 SaO2% (BldA) [Mass fraction] 98 % Kalyani Hernandez RN [facility]; [facility] Work Phone: 11-15-2017 09:49-0400 Weight 82.78 kg Brittani Joao [facility] Work Phone: 06-23-2017 08:57-0400 BMI (Body Mass Index) 29.82 kg/m2 Chalino Olmedo LPN [facility] Work Phone: 06-23-2017 08:57-0400 Body Temperature 98.1 [degF] Chalino Olmedo LPN [facility] Work Phone: 06-23-2017 08:57-0400 Body weight 86.35 kg Chalino Olmedo LPN [facility] Work Phone: 06-23-2017 08:57-0400 BP Diastolic 78 mm[Hg] Chalino Olmedo LPN [facility] Work Phone: Comment on above: Patient Position: Sitting; Cuff Location : Left Arm; Cuff Size: Standard 06-23-2017 08:57-0400 BP Systolic 124 mm[Hg] Chalino Olmedo LPN [facility] Work Phone: Comment on above: Patient Position: Sitting; Cuff Location : Left Arm; Cuff Size: Standard 06-23-2017 08:57-0400 BSA (Body Surface Area) 1.98 m2 Chalino Olmedo LPN [facility] Work Phone: 06-23-2017 08:57-0400 Height 170.18 cm Chalino Olmedo LPN [facility] Work Phone: 06-23-2017 08:57-0400 Pulse (Heart Rate) 88 /min Chalino Olmedo LPN [facility] Work Phone: Comment on above: Pattern: Regular 06-23-2017 08:57-0400 Pulse Oximetry 96 % Brittani Shepherd [facility] Work Phone: Comment on above: Room air 06-23-2017 08:57-0400 Respiratory Rate 16 /min Chalino Olmedo LPN [facility] Work Phone: Comment on above: Pattern: Unlabored 06-23-2017 08:57-0400 SaO2% (BldA) [Mass fraction] 96 % Chalino Olmedo LPN [facility]; [facility] Work Phone: 06-23-2017 08:57-0400 Weight 86.35 kg Brittani Shepherd [facility] Work Phone: 05-01-2017 13:34-0500 BMI (Body Mass Index) 29.82 kg/m2 aKlyani Hernandez RN [facility] Work Phone: 05-01-2017 13:34-0500 Body weight 86.35 kg Kalyani Hernandez RN [facility] Work Phone: 05-01-2017 13:34-0500 BP Diastolic 82 mm[Hg] Kalyani Hernandez RN [facility] Work Phone: Comment on above: Patient Position: Sitting; Cuff Location : Left Arm; Cuff Size: Large 05-01-2017 13:34-0500 BP Systolic 162 mm[Hg] Kalyani Hernandez RN [facility] Work Phone: Comment on above: Patient Position: Sitting; Cuff Location : Left Arm; Cuff Size: Large 05-01-2017 13:34-0500 BSA (Body Surface Area) 1.98 m2 Kalyani Hernandez RN [facility] Work Phone: 05-01-2017 13:34-0500 Height 170.18 cm Kalyani Hernandez RN [facility] Work Phone: 05-01-2017 13:34-0500 Pulse (Heart Rate) 84 /min Kalyani Hernandez RN [facility] Work Phone: Comment on above: Pattern: Regular 05-01-2017 13:34-0500 Pulse Oximetry 98 % Brittani Shepherd [facility] Work Phone: Comment on above: Room air 05-01-2017 13:34-0500 Respiratory Rate 18 /min Kalyani Hernandez RN [facility] Work Phone: Comment on above: Pattern: Unlabored 05-01-2017 13:34-0500 SaO2% (BldA) [Mass fraction] 98 % Kalyani Hernandez RN [facility]; [facility] Work Phone: 05-01-2017 13:34-0500 Weight 86.35 kg Brittani Shepherd [facility] Work Phone: 11-30-2016 09:19-0400 BMI (Body Mass Index) 29.46 kg/m2 Shari Slarb [employer]ICE MA[employer] [facility] Work Phone: 11-30-2016 09:19-0400 Body Temperature 97.5 [degF] Shari Slarb LAW OFFICE MANAGER [facility] Work Phone: 11-30-2016 09:19-0400 Body weight 85.33 kg Shari Slarb [employer] OFFICE MANAGER [facility] Work Phone: 11-30-2016 09:19-0400 BP Diastolic 84 mm[Hg] Shari Slarb LAW OFFICE MANAGER [facility] Work Phone: Comment on above: Patient Position: Sitting; Cuff Location : Left Arm; Cuff Size: Standard 11-30-2016 09:19-0400 BP Systolic 130 mm[Hg] Shari Slarb LAW OFFICE MANAGER [facility] Work Phone: Comment on above: Patient Position: Sitting; Cuff Location : Left Arm; Cuff Size: Standard 11-30-2016 09:19-0400 BSA (Body Surface Area) 1.97 m2 Shari Slarb LAW OFFICE MANAGER [facility] Work Phone: 11-30-2016 09:19-0400 Height 170.18 cm Shari Slarb LAW OFFICE MANAGER [facility] Work Phone: 11-30-2016 09:19-0400 Pulse (Heart Rate) 76 /min Shari Slarb [employer] OFFICE MANAGER [facility] Work Phone: Comment on above: Pattern: Regular 11-30-2016 09:19-0400 Pulse Oximetry 98 % Brittani Vogelon [facility] Work Phone: Comment on above: Room air 11-30-2016 09:19-0400 Respiratory Rate 16 /min Shari Slarb LAW OFFICE MANAGER [facility] Work Phone: Comment on above: Pattern: Unlabored 11-30-2016 09:19-0400 SaO2% (BldA) [Mass fraction] 98 % Shari Sonyusuf LANG [facility]; [facility] Work Phone: 11-30-2016 09:19-0400 Weight 85.33 kg Brittani Shepherd [facility] Work Phone: 08-29-2016 09:26-0400 BMI (Body Mass Index) 29.44 kg/m2 Kalyani Hernandez RN [facility] Work Phone: 08-29-2016 09:26-0400 Body weight 85.28 kg Kalyani Hernandez RN [facility] Work Phone: 08-29-2016 09:26-0400 BP Diastolic 80 mm[Hg] Kalyani Hernandez RN [facility] Work Phone: Comment on above: Patient Position: Sitting; Cuff Location : Left Arm; Cuff Size: Large 08-29-2016 09:26-0400 BP Systolic 138 mm[Hg] Kalyani Hernandez RN [facility] Work Phone: Comment on above: Patient Position: Sitting; Cuff Location : Left Arm; Cuff Size: Large 08-29-2016 09:26-0400 BSA (Body Surface Area) 1.97 m2 Kalyani Hernandez RN [facility] Work Phone: 08-29-2016 09:26-0400 Height 170.18 cm Kalyani Hernandez RN [facility] Work Phone: 08-29-2016 09:26-0400 Pulse (Heart Rate) 81 /min Kalyani Hernandez RN [facility] Work Phone: Comment on above: Pattern: Regular 08-29-2016 09:26-0400 Pulse Oximetry 96 % Brittani Shepherd [facility] Work Phone: Comment on above: Room air 08-29-2016 09:26-0400 Respiratory Rate 18 /min Kalyani Hernandez RN [facility] Work Phone: Comment on above: Pattern: Unlabored 08-29-2016 09:26-0400 SaO2% (BldA) [Mass fraction] 96 % Kalyani Hernandez RN [facility]; [facility] Work Phone: 08-29-2016 09:26-0400 Weight 85.28 kg Brittani Shepherd [facility] Work Phone: 08-24-2016 09:29-0400 BMI (Body Mass Index) 29.03 kg/m2 Carlyn Zhong [facility] Work Phone: 08-24-2016 09:290400 Body weight 84.09 kg Carlyn Zhong [facility] Work Phone: 08-24-2016 09:29-0400 BP Diastolic 80 mm[Hg] Carlyn Zhong [facility] Work Phone: Comment on above: Patient Position: Sitting; Cuff Location : Left Arm; Cuff Size: Standard 08-24-2016 09:290400 BP Systolic 116 mm[Hg] Carlyn Zhong [facility] Work Phone: Comment on above: Patient Position: Sitting; Cuff Location : Left Arm; Cuff Size: Standard 08-24-2016 09:290400 BSA (Body Surface Area) 1.96 m2 Carlyn Zhong [facility] Work Phone: 08-24-2016 09:290400 Height 170.18 cm [facility]: 08-24-2016 09:29-0400 Pulse (Heart Rate) 84 /min [facility]: Comment on above: Pattern: Regular 08-24-2016 09:29-0400 Pulse Oximetry 97 % Brittani Shepherd [facility] Work Phone: Comment on above: Room air 08-24-2016 09:29-0400 Respiratory Rate 18 /min Carlyn Zhong [facility] Work Phone: Comment on above: Pattern: Unlabored 08-24-2016 09:29-0400 SaO2% (BldA) [Mass fraction] 97 % [facility] Work Phone: 08-24-2016 09:29-0400 Weight 84.09 kg Brittani Shepherd [facility] Work Phone: 04-26-2016 09:36-0500 BMI (Body Mass Index) 29.03 kg/m2 Shari Slarb LAW OFFICE MANAGER [facility] Work Phone: 04-26-2016 09:36-0500 Body Temperature 98.2 [degF] Shari Slarb [employer] OFFICE MANAGER [facility] Work Phone: 04-26-2016 09:36-0500 Body weight 84.09 kg Shari Slarb LAW OFFICE MANAGER [facility] Work Phone: 04-26-2016 09:36-0500 BP Diastolic 76 mm[Hg] Shari Slarb LAW OFFICE MANAGER [facility] Work Phone: Comment on above: Patient Position: Sitting; Cuff Location : Left Arm; Cuff Size: Standard 04-26-2016 09:36-0500 BP Systolic 106 mm[Hg] Shari Slarb LAW OFFICE MANAGER [facility] Work Phone: Comment on above: Patient Position: Sitting; Cuff Location : Left Arm; Cuff Size: Standard 04-26-2016 09:36-0500 BSA (Body Surface Area) 1.96 m2 Shari Slarb LAW OFFICE MANAGER [facility] Work Phone: 04-26-2016 09:36-0500 Height 170.18 cm Shari Slarb LAW OFFICE MANAGER [facility] Work Phone: 04-26-2016 09:36-0500 Pulse (Heart Rate) 91 /min Shari Slarb [employer] OFFICE MANAGER [facility] Work Phone: Comment on above: Pattern: Regular 04-26-2016 09:36-0500 Pulse Oximetry 96 % Brittani Shepherd [facility] Work Phone: Comment on above: Room air 04-26-2016 09:36-0500 Respiratory Rate 17 /min Shari Slarb LAW OFFICE MANAGER [facility] Work Phone: Comment on above: Pattern: Unlabored 04-26-2016 09:36-0500 SaO2% (BldA) [Mass fraction] 96 % Shari Sarkis LAW OFFICE MANAGER [facility]; [facility] Work Phone: 04-26-2016 09:36-0500 Weight 84.09 kg Brittani Shepherd [facility] Work Phone: 01-22-2016 10:10-0400 BMI (Body Mass Index) 29.33 kg/m2 [facility] Work Phone: 01-22-2016 10:10-0400 Body Temperature 98 [degF] [facility] Work Phone: 01-22-2016 10:10-0400 Body weight 84.94 kg [facility] Work Phone: 01-22-2016 10:10-0400 BP Diastolic 72 mm[Hg] [facility] Work Phone: Comment on above: Patient Position: Sitting; Cuff Location : Left Arm; Cuff Size: Standard 01-22-2016 10:10-0400 BP Systolic 130 mm[Hg] [facility] Work Phone: Comment on above: Patient Position: Sitting; Cuff Location : Left Arm; Cuff Size: Standard 01-22-2016 10:10-0400 BSA (Body Surface Area) 1.97 m2 [facility] Work Phone: 01-22-2016 10:10-0400 Height 170.18 cm [facility] Work Phone: 01-22-2016 10:10-0400 Pulse (Heart Rate) 65 /min [facility] Work Phone: Comment on above: Pattern: Regular 01-22-2016 10:10-0400 Pulse Oximetry 98 % Brittani Shepherd [facility] Work Phone: Comment on above: Room air 01-22-2016 10:10-0400 Respiratory Rate 16 /min [facility] Work Phone: Comment on above: Pattern: Unlabored 01-22-2016 10:10-0400 SaO2% (BldA) [Mass fraction] 98 % Heladio Jacob [facility]; [facility] Work Phone: 01-22-2016 10:10-0400 Weight 84.94 kg Brittani Shepherd [facility] Work Phone: 12-10-2015 10:54-0400 BMI (Body Mass Index) 28.86 kg/m2 Kalyani Hernandez RN [facility] Work Phone: 12-10-2015 10:54-0400 Body weight 83.58 kg Kalyani Hernandez RN [facility] Work Phone: 12-10-2015 10:54-0400 BP Diastolic 80 mm[Hg] Kalyani Hernandez RN [facility] Work Phone: Comment on above: Patient Position: Sitting; Cuff Location : Left Arm; Cuff Size: Large 12-10-2015 10:54-0400 BP Systolic 128 mm[Hg] Kalyani Hernandez RN [facility] Work Phone: Comment on above: Patient Position: Sitting; Cuff Location : Left Arm; Cuff Size: Large 12-10-2015 10:54-0400 BSA (Body Surface Area) 1.95 m2 Kalyani Hernandez RN [facility] Work Phone: 12-10-2015 10:54-0400 Height 170.18 cm Kalyani Hernandez RN [facility] Work Phone: 12-10-2015 10:54-0400 Pulse (Heart Rate) 65 /min Kalyani Hernandez RN [facility] Work Phone: Comment on above: Pattern: Regular 12-10-2015 10:54-0400 Pulse Oximetry 99 % Brittani Shepherd [facility] Work Phone: Comment on above: Room air 12-10-2015 10:54-0400 Respiratory Rate 18 /min Kalyani Hernandez RN [facility] Work Phone: Comment on above: Pattern: Unlabored 12-10-2015 10:54-0400 SaO2% (BldA) [Mass fraction] 99 % Kalyani Hernandez RN [facility]; [facility] Work Phone: 12-10-2015 10:54-0400 Weight 83.58 kg Brittani Shepherd [facility] Work Phone: 12-04-2015 13:00-0400 BMI (Body Mass Index) 29.19 kg/m2 Kalyani Hernandez RN [facility] Work Phone: 12-04-2015 13:00-0400 Body Temperature 97.9 [degF] Kalyani Hernandez RN [facility] Work Phone: Comment on above: Method: Temporal 12-04-2015 13:00-0400 Body weight 84.54 kg Kalyani Hernandez RN [facility] Work Phone: 12-04-2015 13:00-0400 BP Diastolic 82 mm[Hg] Kalyani Hernandez RN [facility] Work Phone: Comment on above: Patient Position: Sitting; Cuff Location : Left Arm; Cuff Size: Large 12-04-2015 13:00-0400 BP Systolic 120 mm[Hg] Kalyani Hernandez RN [facility] Work Phone: Comment on above: Patient Position: Sitting; Cuff Location : Left Arm; Cuff Size: Large 12-04-2015 13:00-0400 BSA (Body Surface Area) 1.96 m2 Kalyani Hernandez RN [facility] Work Phone: 12-04-2015 13:00-0400 Height 170.18 cm Kalyani Hernandez RN [facility] Work Phone: 12-04-2015 13:00-0400 Pulse (Heart Rate) 84 /min Kalyani Hernandez RN [facility] Work Phone: Comment on above: Pattern: Regular 12-04-2015 13:00-0400 Pulse Oximetry 97 % Brittani Shepherd [facility] Work Phone: Comment on above: Room air 12-04-2015 13:00-0400 Respiratory Rate 18 /min Kalyani Hernandez RN [facility] Work Phone: Comment on above: Pattern: Unlabored 12-04-2015 13:00-0400 SaO2% (BldA) [Mass fraction] 97 % Kalyani Hernandez RN [facility]; [facility] Work Phone: 12-04-2015 13:00-0400 Weight 84.54 kg Brittani Shepherd [facility] Work Phone: 11-23-2015 09:10-0400 BMI (Body Mass Index) 29.19 kg/m2 Shari Slarb LAW OFFICE MANAGER [facility] Work Phone: 11-23-2015 09:10-0400 Body Temperature 97.8 [degF] Shari Slarb LAW OFFICE MANAGER [facility] Work Phone: 11-23-2015 09:10-0400 Body weight 84.54 kg Shari Slarb LAW OFFICE MANAGER [facility] Work Phone: 11-23-2015 09:10-0400 BP Diastolic 84 mm[Hg] Shari Slarb LAW OFFICE MANAGER [facility] Work Phone: Comment on above: Patient Position: Sitting; Cuff Location : Left Arm; Cuff Size: Standard 11-23-2015 09:10-0400 BP Systolic 132 mm[Hg] Shari Slarb LAW OFFICE MANAGER [facility] Work Phone: Comment on above: Patient Position: Sitting; Cuff Location : Left Arm; Cuff Size: Standard 11-23-2015 09:10-0400 BSA (Body Surface Area) 1.96 m2 Shari Slarb LAW OFFICE MANAGER [facility] Work Phone: 11-23-2015 09:10-0400 Height 170.18 cm Shari Slarb LAW OFFICE MANAGER [facility] Work Phone: 11-23-2015 09:10-0400 Pulse (Heart Rate) 89 /min Shari Slarb LAW OFFICE MANAGER [facility] Work Phone: Comment on above: Pattern: Regular 11-23-2015 09:10-0400 Pulse Oximetry 98 % Brittani Shepherd [facility] Work Phone: Comment on above: Room air 11-23-2015 09:10-0400 Respiratory Rate 18 /min Shari Slarb LAW OFFICE MANAGER [facility] Work Phone: Comment on above: Pattern: Unlabored 11-23-2015 09:10-0400 SaO2% (BldA) [Mass fraction] 98 % Shari Dockery LPN [facility]; [facility] Work Phone: 11-23-2015 09:10-0400 Weight 84.54 kg Brittani Shepherd [facility] Work Phone: 06-05-2015 08:15-0500 BMI (Body Mass Index) 29.19 kg/m2 Kalyani Hernandez RN [facility] Work Phone: 06-05-2015 08:15-0500 Body weight 84.54 kg Kalyani Hernandez RN [facility] Work Phone: 06-05-2015 08:15-0500 BP Diastolic 76 mm[Hg] Kalyani Hernandez RN [facility] Work Phone: Comment on above: Patient Position: Sitting; Cuff Location : Left Arm; Cuff Size: Large 06-05-2015 08:15-0500 BP Systolic 120 mm[Hg] Kalyani Hernandez RN [facility] Work Phone: Comment on above: Patient Position: Sitting; Cuff Location : Left Arm; Cuff Size: Large 06-05-2015 08:15-0500 BSA (Body Surface Area) 1.96 m2 Kalyani Hernandez RN [facility] Work Phone: 06-05-2015 08:15-0500 Height 170.18 cm Kalyani Hernandez RN [facility] Work Phone: 06-05-2015 08:15-0500 Pulse (Heart Rate) 75 /min Kalyani Hernandez RN [facility] Work Phone: Comment on above: Pattern: Regular 06-05-2015 08:15-0500 Pulse Oximetry 96 % Brittani Shepherd [facility] Work Phone: Comment on above: Room air 06-05-2015 08:15-0500 Respiratory Rate 18 /min Kalyani Hernandez RN [facility] Work Phone: Comment on above: Pattern: Unlabored 06-05-2015 08:15-0500 SaO2% (BldA) [Mass fraction] 96 % Kalyani Hernandez RN [facility]; [facility] Work Phone: 06-05-2015 08:15-0500 Weight 84.54 kg Brittani Shepherd [facility] Work Phone: 02-25-2015 09:05-0500 BMI (Body Mass Index) 28.84 kg/m2 Shari Sonrb LAW OFFICE MANAGER [facility] Work Phone: 02-25-2015 09:05-0500 Body Temperature 97.8 [degF] Shari Adelaidarb LAW OFFICE MANAGER [facility] Work Phone: 02-25-2015 09:05-0500 Body weight 83.52 kg Shari Sonrb [employer] OFFICE MANAGER [facility] Work Phone: 02-25-2015 09:05-0500 BP Diastolic 82 mm[Hg] Shari Adelaidarb LAW OFFICE MANAGER [facility] Work Phone: Comment on above: Patient Position: Sitting; Cuff Location : Left Arm; Cuff Size: Standard 02-25-2015 09:05-0500 BP Systolic 124 mm[Hg] Shari Sonrb LAW OFFICE MANAGER [facility] Work Phone: Comment on above: Patient Position: Sitting; Cuff Location : Left Arm; Cuff Size: Standard 02-25-2015 09:05-0500 BSA (Body Surface Area) 1.95 m2 Shari Sonrb LAW OFFICE MANAGER [facility] Work Phone: 02-25-2015 09:05-0500 Height 170.18 cm Shari Sonrb LAW OFFICE MANAGER [facility] Work Phone: 02-25-2015 09:05-0500 Pulse (Heart Rate) 91 /min Shari Sonrb LAW OFFICE MANAGER [facility] Work Phone: Comment on above: Pattern: Regular 02-25-2015 09:05-0500 Pulse Oximetry 96 % Brittani Shepherd [facility] Work Phone: Comment on above: Room air 02-25-2015 09:05-0500 Respiratory Rate 18 /min Shari Dockery LPN [facility] Work Phone: Comment on above: Pattern: Unlabored 02-25-2015 09:05-0500 SaO2% (BldA) [Mass fraction] 96 % Shari Slarb LAW OFFICE MANAGER [facility]; [facility] Work Phone: 02-25-2015 09:05-0500 Weight 83.52 kg Brittani Shepherd [facility] Work Phone: 02-23-2015 08:11-0500 BMI (Body Mass Index) 28.84 kg/m2 Shari Slarb LAW OFFICE MANAGER [facility] Work Phone: 02-23-2015 08:11-0500 Body Temperature 99.2 [degF] Shari Slarb LAW OFFICE MANAGER [facility] Work Phone: 02-23-2015 08:11-0500 Body weight 83.52 kg Shari Slarb LAW OFFICE MANAGER [facility] Work Phone: 02-23-2015 08:11-0500 BP Diastolic 82 mm[Hg] Shari Slarb LAW OFFICE MANAGER [facility] Work Phone: Comment on above: Patient Position: Sitting; Cuff Location : Left Arm; Cuff Size: Standard 02-23-2015 08:11-0500 BP Systolic 124 mm[Hg] Shari Slarb [employer] [facility] Work Phone: Comment on above: Patient Position: Sitting; Cuff Location : Left Arm; Cuff Size: Standard 02-23-2015 08:11-0500 BSA (Body Surface Area) 1.95 m2 Shari Slarb [employer] OFFICE [employer] [facility] Work Phone: 02-23-2015 08:11-0500 Height 170.18 cm Shari Slarb [employer] OFFICE MANA[employer] [facility] Work Phone: 02-23-2015 08:11-0500 Pulse (Heart Rate) 88 /min Shari Slarb [employer] [facility] Work Phone: Comment on above: Pattern: Regular 02-23-2015 08:11-0500 Pulse Oximetry 98 % Brittani Shepherd [facility] Work Phone: Comment on above: Room air 02-23-2015 08:11-0500 Respiratory Rate 17 /min Shari Slarb [employer] OFFICE MANAGER [facility] Work Phone: Comment on above: Pattern: Unlabored 02-23-2015 08:11-0500 SaO2% (BldA) [Mass fraction] 98 % Shari Dockery LPN [facility]; [facility] Work Phone: 02-23-2015 08:11-0500 Weight 83.52 kg Brittani Shepherd [facility] Work Phone: 07-30-2014 10:20-0400 BMI (Body Mass Index) 28.84 kg/m2 Kalyani Hernandez RN [facility] Work Phone: 07-30-2014 10:20-0400 Body weight 83.52 kg Kalyani Hernandez RN [facility] Work Phone: 07-30-2014 10:20-0400 BP Diastolic 80 mm[Hg] Kalyani Hernandez RN [facility] Work Phone: Comment on above: Patient Position: Sitting; Cuff Location : Left Arm; Cuff Size: Large 07-30-2014 10:20-0400 BP Systolic 138 mm[Hg] Kalyani Hernandez RN [facility] Work Phone: Comment on above: Patient Position: Sitting; Cuff Location : Left Arm; Cuff Size: Large 07-30-2014 10:20-0400 BSA (Body Surface Area) 1.95 m2 Kalyani Hernandez RN [facility] Work Phone: 07-30-2014 10:20-0400 Height 170.18 cm Kalyani Hernandez RN [facility] Work Phone: 07-30-2014 10:20-0400 Pulse (Heart Rate) 70 /min Kalyani Hernandez RN [facility] Work Phone: Comment on above: Pattern: Regular 07-30-2014 10:20-0400 Pulse Oximetry 98 % Brittani Shepherd [facility] Work Phone: Comment on above: Room air 07-30-2014 10:20-0400 Respiratory Rate 20 /min Kalyani Hernandez RN [facility] Work Phone: Comment on above: Pattern: Unlabored 07-30-2014 10:20-0400 SaO2% (BldA) [Mass fraction] 98 % Kalyani Hernandez RN [facility]; [facility] Work Phone: 07-30-2014 10:20-0400 Weight 83.52 kg Brittani Shepherd [facility] Work Phone: 05-30-2014 08:35-0500 BMI (Body Mass Index) 28.85 kg/m2 Kalyani Hernandez RN [facility] Work Phone: 05-30-2014 08:35-0500 Body Temperature 96.6 [degF] Kalyani Hernandez RN [facility] Work Phone: Comment on above: Method: Oral 05-30-2014 08:35-0500 Body weight 83.55 kg Kalyani Hernandez RN [facility] Work Phone: 05-30-2014 08:35-0500 BP Diastolic 78 mm[Hg] Kalyani Hernandez RN [facility] Work Phone: Comment on above: Patient Position: Sitting; Cuff Location : Left Arm; Cuff Size: Large 05-30-2014 08:35-0500 BP Systolic 120 mm[Hg] Kalyani Hernandez RN [facility] Work Phone: Comment on above: Patient Position: Sitting; Cuff Location : Left Arm; Cuff Size: Large 05-30-2014 08:35-0500 BSA (Body Surface Area) 1.95 m2 Kalyani Hernandez RN [facility] Work Phone: 05-30-2014 08:35-0500 Height 170.18 cm Kalyani Hernandez RN [facility] Work Phone: 05-30-2014 08:35-0500 Pulse (Heart Rate) 72 /min Kalyani Hernandez RN [facility] Work Phone: Comment on above: Pattern: Regular 05-30-2014 08:35-0500 Pulse Oximetry 98 % Brittani Shepherd [facility] Work Phone: Comment on above: Room air 05-30-2014 08:35-0500 Respiratory Rate 18 /min Kalyani Hernandez RN [facility] Work Phone: Comment on above: Pattern: Unlabored 05-30-2014 08:35-0500 SaO2% (BldA) [Mass fraction] 98 % Kalyani Hernandez RN [facility]; [facility] Work Phone: 05-30-2014 08:35-0500 Weight 83.55 kg Brittani Shepherd [facility] Work Phone: 03-03-2014 08:15-0500 BMI (Body Mass Index) 27.95 kg/m2 Brittani Shepherd [facility] Work Phone: 03-03-2014 08:15-0500 Body Temperature 98.8 [degF] Brittani Shepherd [facility] Work Phone: Comment on above: Method: Oral 03-03-2014 08:15-0500 Body weight 80.94 kg Brittani Shepherd [facility] Work Phone: 03-03-2014 08:15-0500 BP Diastolic 82 mm[Hg] Brittani Shepherd [facility] Work Phone: Comment on above: Patient Position: Sitting; Cuff Location : Left Arm; Cuff Size: Standard 03-03-2014 08:15-0500 BP Systolic 130 mm[Hg] Brittani Shepherd [facility] Work Phone: Comment on above: Patient Position: Sitting; Cuff Location : Left Arm; Cuff Size: Standard 03-03-2014 08:15-0500 BSA (Body Surface Area) 1.93 m2 Brittani Shepherd [facility] Work Phone: 03-03-2014 08:15-0500 Height 170.18 cm Brittani Shepherd [facility] Work Phone: 03-03-2014 08:15-0500 Pulse (Heart Rate) 90 /min Brittani Shepherd [facility] Work Phone: Comment on above: Pattern: Regular 03-03-2014 08:15-0500 Pulse Oximetry 98 % Brittani Shepherd [facility] Work Phone: Comment on above: Room air 03-03-2014 08:15-0500 Respiratory Rate 16 /min Brittani Shepherd [facility] Work Phone: 03-03-2014 08:15-0500 SaO2% (BldA) [Mass fraction] 98 % Brittani Shepherd DO Work Phone: [facility]; [facility] Work Phone: 03-03-2014 08:15-0500 Weight 80.94 kg Brittani Shepherd [facility] Work Phone: 08-14-2013 08:53-0400 BMI (Body Mass Index) 27.95 kg/m2 Brittani Shepherd [facility] Work Phone: 08-14-2013 08:53-0400 Body Temperature 98.1 [degF] Brittani Shepherd [facility] Work Phone: Comment on above: Method: Oral 08-14-2013 08:53-0400 Body weight 80.94 kg Brittani Shepherd [facility] Work Phone: 08-14-2013 08:53-0400 BP Diastolic 70 mm[Hg] Brittani Shepherd [facility] Work Phone: Comment on above: Patient Position: Sitting; Cuff Location : Left Arm; Cuff Size: Standard 08-14-2013 08:53-0400 BP Systolic 114 mm[Hg] Brittani Shepherd [facility] Work Phone: Comment on above: Patient Position: Sitting; Cuff Location : Left Arm; Cuff Size: Standard 08-14-2013 08:53-0400 BSA (Body Surface Area) 1.93 m2 Brittani Shepherd [facility] Work Phone: 08-14-2013 08:53-0400 Height 170.18 cm Brittani Shepherd [facility] Work Phone: 08-14-2013 08:53-0400 Pulse (Heart Rate) 80 /min Brittani Shepherd [facility] Work Phone: Comment on above: Pattern: Regular 08-14-2013 08:53-0400 Pulse Oximetry 98 % Brittani Shepherd [facility] Work Phone: Comment on above: Room air 08-14-2013 08:53-0400 Respiratory Rate 16 /min Brittani Shepherd [facility] Work Phone: Comment on above: Pattern: Unlabored 08-14-2013 08:53-0400 SaO2% (BldA) [Mass fraction] 98 % Brittani Shepherd DO Work Phone: [facility]; [facility] Work Phone: 08-14-2013 08:53-0400 Weight 80.94 kg Brittani Shepherd [facility] Work Phone: 07-31-2013 10:19-0400 BMI (Body Mass Index) 28.57 kg/m2 Brittani Shepherd [facility] Work Phone: 07-31-2013 10:19-0400 Body Temperature 97.8 [degF] Brittani Shepherd [facility] Work Phone: Comment on above: Method: Oral 07-31-2013 10:0400 Body weight 82.75 kg Brittani Shepherd [facility] Work Phone: 07-31-2013 10:19-0400 BP Diastolic 70 mm[Hg] Brittani Shepherd [facility] Work Phone: Comment on above: Patient Position: Sitting; Cuff Location : Left Arm; Cuff Size: Standard 07-31-2013 10:190400 BP Systolic 120 mm[Hg] Brittani Shepherd [facility] Work Phone: Comment on above: Patient Position: Sitting; Cuff Location : Left Arm; Cuff Size: Standard 07-31-2013 10:190400 BSA (Body Surface Area) 1.94 m2 Brittani Shepherd [facility] Work Phone: 07-31-2013 10:190400 Height 170.18 cm Brittani Shepherd [facility] Work Phone: 07-31-2013 10:19-0400 Pulse (Heart Rate) 76 /min Brittani Shepherd [facility] Work Phone: Comment on above: Pattern: Regular 07-31-2013 10:19-0400 Pulse Oximetry 98 % Brittani Shepherd [facility] Work Phone: Comment on above: Room air 07-31-2013 10:190400 Respiratory Rate 16 /min Brittani Shepherd [facility] Work Phone: 07-31-2013 10:19-0400 SaO2% (BldA) [Mass fraction] 98 % Brittani Shepherd DO Work Phone: [facility]; [facility] Work Phone: 07-31-2013 10:190400 Weight 82.75 kg Brittani Shepherd [facility] Work Phone: 07-29-2013 08:13-0400 BMI (Body Mass Index) 28.57 kg/m2 Melina Hook RN [facility] Work Phone: 07-29-2013 08:13-0400 Body Temperature 97.6 [degF] Melina Hook RN [facility] Work Phone: Comment on above: Method: Temporal 07-29-2013 08:130400 Body weight 82.75 kg Melina Hook RN [facility] Work Phone: 07-29-2013 08:13-0400 BP Diastolic 74 mm[Hg] Melina Hook RN [facility] Work Phone: Comment on above: Patient Position: Sitting; Cuff Location : Left Arm; Cuff Size: Standard 07-29-2013 08:13-0400 BP Systolic 116 mm[Hg] Melina Hook RN [facility] Work Phone: Comment on above: Patient Position: Sitting; Cuff Location : Left Arm; Cuff Size: Standard 07-29-2013 08:13-0400 BSA (Body Surface Area) 1.94 m2 Melina Hook RN [facility] Work Phone: 07-29-2013 08:13-0400 Height 170.18 cm Melina Hook RN [facility] Work Phone: 07-29-2013 08:13-0400 Pulse (Heart Rate) 86 /min Melina Hook RN [facility] Work Phone: Comment on above: Pattern: Regular 07-29-2013 08:13-0400 Pulse Oximetry 99 % Brittani Shepherd [facility] Work Phone: Comment on above: Room air 07-29-2013 08:13-0400 Respiratory Rate 16 /min Melina Hook RN [facility] Work Phone: Comment on above: Pattern: Unlabored 07-29-2013 08:13-0400 SaO2% (BldA) [Mass fraction] 99 % Melina Hook RN [facility]; [facility] Work Phone: 07-29-2013 08:13-0400 Weight 82.75 kg Brittani Shepherd [facility] Work Phone: 07-25-2013 08:30-0400 BMI (Body Mass Index) 28.57 kg/m2 Kalyani Hernandez RN [facility] Work Phone: 07-25-2013 08:30-0400 Body Temperature 98.1 [degF] Kalyani Hernandez RN [facility] Work Phone: Comment on above: Method: Oral 07-25-2013 08:30-0400 Body weight 82.75 kg Kalyani Hernandez RN [facility] Work Phone: 07-25-2013 08:30-0400 BP Diastolic 72 mm[Hg] Kalyani Hernandez RN [facility] Work Phone: Comment on above: Patient Position: Sitting; Cuff Location : Left Arm; Cuff Size: Large 07-25-2013 08:30-0400 BP Systolic 130 mm[Hg] Kalyani Hernandez RN [facility] Work Phone: Comment on above: Patient Position: Sitting; Cuff Location : Left Arm; Cuff Size: Large 07-25-2013 08:30-0400 BSA (Body Surface Area) 1.94 m2 Kalyani Hernandez RN [facility] Work Phone: 07-25-2013 08:30-0400 Height 170.18 cm Kalyani Hernandez RN [facility] Work Phone: 07-25-2013 08:30-0400 Pulse (Heart Rate) 18 /min Kalyani Hernandez RN [facility] Work Phone: Comment on above: Pattern: Regular 07-25-2013 08:30-0400 Pulse Oximetry 98 % Brittani Shepherd [facility] Work Phone: Comment on above: Room air 07-25-2013 08:30-0400 Respiratory Rate 20 /min Kalyani Hernandez RN [facility] Work Phone: Comment on above: Pattern: Unlabored 07-25-2013 08:30-0400 SaO2% (BldA) [Mass fraction] 98 % Kalyani Hernandez RN [facility]; [facility] Work Phone: 07-25-2013 08:30-0400 Weight 82.75 kg Brittani Shepherd [facility] Work Phone: 06-18-2013 10:47-0400 BMI (Body Mass Index) 28.57 kg/m2 [facility] Work Phone: 06-18-2013 10:47-0400 Body Temperature 100.2 [degF] [facility] Work [facility]: Comment on above: Method: Oral 06-18-2013 10:47-0400 Body weight 82.75 kg [facility] Work Phone: 06-18-2013 10:47-0400 BP Diastolic 68 mm[Hg] [facility] Work [facility]: Comment on above: Patient Position: Sitting; Cuff Location : Left Arm; Cuff Size: Standard 06-18-2013 10:47-0400 BP Systolic 122 mm[Hg] [facility] Work [facility]: Comment on above: Patient Position: Sitting; Cuff Location : Left Arm; Cuff Size: Standard 06-18-2013 10:47-0400 BSA (Body Surface Area) 1.94 m2 [facility] Work Phone: 06-18-2013 10:47-0400 Height 170.18 cm [facility] Work Phone: 06-18-2013 10:47-0400 Pulse (Heart Rate) 89 /min Chari Moss [facility] Work Phone: Comment on above: Pattern: Regular 06-18-2013 10:47-0400 Pulse Oximetry 98 % Brittani Shepherd [facility] Work Phone: Comment on above: Room air 06-18-2013 10:47-0400 Respiratory Rate 16 /min Chari Moss [facility] Work Phone: Comment on above: Pattern: Unlabored 06-18-2013 10:47-0400 SaO2% (BldA) [Mass fraction] 98 % Chari Moss [facility]; [facility] Work Phone: 06-18-2013 10:47-0400 Weight 82.75 kg Brittani Shepherd [facility] Work Phone: 02-08-2013 10:32-0400 BMI (Body Mass Index) 28.57 kg/m2 Michelle Bo MD Work Phone: [facility] Work Phone: 02-08-2013 10:32-0400 Body Temperature 99.8 [degF] Michelle Bo MD Work Phone: [facility] Work Phone: Comment on above: Method: Temporal 02-08-2013 10:32-0400 Body weight 82.75 kg Michelle Bo MD Work Phone: [facility] Work Phone: 02-08-2013 10:32-0400 BP Diastolic 74 mm[Hg] Michelle Bo MD Work Phone: [facility] Work Phone: Comment on above: Patient Position: Sitting; Cuff Location : Left Arm; Cuff Size: Standard 02-08-2013 10:32-0400 BP Systolic 140 mm[Hg] Michelle Bo MD Work Phone: [facility] Work Phone: Comment on above: Patient Position: Sitting; Cuff Location : Left Arm; Cuff Size: Standard 02-08-2013 10:32-0400 BSA (Body Surface Area) 1.94 m2 Michelle Bo MD Work Phone: [facility] Work Phone: 02-08-2013 10:32-0400 Height 170.18 cm Michelle Bo MD Work Phone: [facility] Work Phone: 02-08-2013 10:32-0400 Pulse (Heart Rate) 76 /min Michelle Bo MD Work Phone: [facility] Work Phone: Comment on above: Pattern: Regular 02-08-2013 10:32-0400 Pulse Oximetry 98 % Brittani Shepherd [facility] Work Phone: Comment on above: Room air 02-08-2013 10:32-0400 Respiratory Rate 16 /min Michelle Bo MD Work Phone: [facility] Work Phone: Comment on above: Pattern: Unlabored 02-08-2013 10:32-0400 SaO2% (BldA) [Mass fraction] 98 % Michelle Bo MD Work Phone: [facility]; [facility] Work Phone: 02-08-2013 10:32-0400 Weight 82.75 kg Brittani Joao [facility] Work Phone: 09-20-2012 12:28-0400 BMI (Body Mass Index) 28.57 kg/m2 Kalyani Hernandez RN [facility] Work Phone: 09-20-2012 12:28-0400 Body weight 82.75 kg Kalyani Hernandez RN [facility] Work Phone: 09-20-2012 12:28-0400 BP Diastolic 78 mm[Hg] Kalyani Hernandez RN [facility] Work Phone: Comment on above: Patient Position: Sitting; Cuff Location : Left Arm; Cuff Size: Large 09-20-2012 12:28-0400 BP Systolic 122 mm[Hg] Kalyani Hernandez RN [facility] Work Phone: Comment on above: Patient Position: Sitting; Cuff Location : Left Arm; Cuff Size: Large 09-20-2012 12:28-0400 BSA (Body Surface Area) 1.94 m2 Kalyani Hernandez RN [facility] Work Phone: 09-20-2012 12:28-0400 Height 170.18 cm Kalyani Hernandez RN [facility] Work Phone: 09-20-2012 12:28-0400 Pulse (Heart Rate) 60 /min Kalyani Hernandez RN [facility] Work Phone: Comment on above: Pattern: Regular 09-20-2012 12:28-0400 Respiratory Rate 18 /min Kalyani Hernandez RN [facility] Work Phone: Comment on above: Pattern: Unlabored 09-20-2012 12:28-0400 Weight 82.75 kg Brittani Shepherd [facility] Work Phone: 04-17-2012 08:49-0500 BMI (Body Mass Index) 31.36 kg/m2 Kalyani Hernandez RN [facility] Work Phone: 04-17-2012 08:49-0500 Body Temperature 98.7 [degF] Kalyani Hernandez RN [facility] Work Phone: Comment on above: Method: Oral 04-17-2012 08:49-0500 Body weight 90.83 kg Kalyani Hernandez RN [facility] Work Phone: 04-17-2012 08:49-0500 BP Diastolic 60 mm[Hg] Kalyani Hernandez RN [facility] Work Phone: Comment on above: Patient Position: Sitting; Cuff Location : Left Arm; Cuff Size: Large 04-17-2012 08:49-0500 BP Systolic 122 mm[Hg] Kalyani Hernandez RN [facility] Work Phone: Comment on above: Patient Position: Sitting; Cuff Location : Left Arm; Cuff Size: Large 04-17-2012 08:49-0500 BSA (Body Surface Area) 2.02 m2 Kalyani Hernandez RN [facility] Work Phone: 04-17-2012 08:49-0500 Height 170.18 cm Kalyani Hernandez RN [facility] Work Phone: 04-17-2012 08:49-0500 Pulse (Heart Rate) 88 /min Kalyani Hernandez RN [facility] Work Phone: Comment on above: Pattern: Regular 04-17-2012 08:49-0500 Respiratory Rate 20 /min Kalyani Hernandez RN [facility] Work Phone: Comment on above: Pattern: Unlabored 04-17-2012 08:49-0500 Weight 90.83 kg Brittani Shepherd [facility] Work Phone: 02-28-2012 10:36-0500 BMI (Body Mass Index) 30.26 kg/m2 Melina Hook RN [facility] Work Phone: Comment on above: up 9 pounds 02-28-2012 10:36-0500 Body Temperature 97.9 [degF] Melina Hook RN [facility] Work Phone: Comment on above: Method: Oral up 9 pounds 02-28-2012 10:36-0500 Body weight 87.64 kg Melina Hook RN [facility] Work Phone: Comment on above: up 9 pounds 02-28-2012 10:36-0500 BP Diastolic 74 mm[Hg] Melina Hook RN [facility] Work Phone: Comment on above: Patient Position: Sitting; Cuff Location : Left Arm; Cuff Size: Standard up 9 pounds 02-28-2012 10:36-0500 BP Systolic 112 mm[Hg] Melina Hook RN [facility] Work Phone: Comment on above: Patient Position: Sitting; Cuff Location : Left Arm; Cuff Size: Standard up 9 pounds 02-28-2012 10:36-0500 BSA (Body Surface Area) 1.99 m2 Melina Hook RN [facility] Work Phone: Comment on above: up 9 pounds 02-28-2012 10:36-0500 Height 170.18 cm Melina L Long RN [facility] Work Phone: Comment on above: up 9 pounds 02-28-2012 10:36-0500 Pulse (Heart Rate) 70 /min Melina Hook RN [facility] Work Phone: Comment on above: Pattern: Regular up 9 pounds 02-28-2012 10:36-0500 Respiratory Rate 18 /min Melina Hook RN [facility] Work Phone: Comment on above: Pattern: Unlabored up 9 pounds 02-28-2012 10:36-0500 Weight 87.64 kg Brittani Shepherd [facility] Work Phone: Comment on above: up 9 pounds 12-08-2011 10:09-0400 BMI (Body Mass Index) 28.83 kg/m2 Kalyani Hernandez RN [facility] Work Phone: 12-08-2011 10:09-0400 Body weight 83.49 kg Kalyain Hernandez RN [facility] Work Phone: 12-08-2011 10:09-0400 BP Diastolic 78 mm[Hg] Kalyani Hernandez RN [facility] Work Phone: Comment on above: Patient Position: Sitting; Cuff Location : Left Arm; Cuff Size: Large 12-08-2011 10:09-0400 BP Systolic 122 mm[Hg] Kalyani Hernandez RN [facility] Work Phone: Comment on above: Patient Position: Sitting; Cuff Location : Left Arm; Cuff Size: Large 12-08-2011 10:090400 BSA (Body Surface Area) 1.95 m2 Kalyani Hernandez RN [facility] Work Phone: 12-08-2011 10:09-0400 Height 170.18 cm Kalyani Hernandez RN [facility] Work Phone: 12-08-2011 10:09-0400 Pulse (Heart Rate) 60 /min Kalyani Heranndez RN [facility] Work Phone: Comment on above: Pattern: Regular 12-08-2011 10:09-0400 Respiratory Rate 18 /min Kalyani Hernandez RN [facility] Work Phone: Comment on above: Pattern: Unlabored 12-08-2011 10:09-0400 Weight 83.49 kg Brittani Shepherd [facility] Work Phone: 08-08-2011 11:15-0400 BMI (Body Mass Index) 30.55 kg/m2 Kalyani Hernandez RN [facility] Work Phone: 08-08-2011 11:15-0400 Body weight 88.48 kg Kalyani Hernandez RN [facility] Work Phone: 08-08-2011 11:15-0400 BP Diastolic 70 mm[Hg] Kalyani Hernandez RN [facility] Work Phone: Comment on above: Patient Position: Sitting; Cuff Location : Left Arm; Cuff Size: Large 08-08-2011 11:15-0400 BP Systolic 138 mm[Hg] Kalyani Hernandez RN [facility] Work Phone: Comment on above: Patient Position: Sitting; Cuff Location : Left Arm; Cuff Size: Large 08-08-2011 11:15-0400 BSA (Body Surface Area) 2 m2 Kalyani Hernandez RN [facility] Work Phone: 08-08-2011 11:15-0400 Height 170.18 cm Kalyani Hernandez RN [facility] Work Phone: 08-08-2011 11:15-0400 Pulse (Heart Rate) 80 /min Kalyani Hernandez RN [facility] Work Phone: Comment on above: Pattern: Regular 08-08-2011 11:15-0400 Respiratory Rate 20 /min Kalyani Hernandez RN [facility] Work Phone: Comment on above: Pattern: Unlabored 08-08-2011 11:15-0400 Weight 88.48 kg Brittani Shepherd [facility] Work Phone: 01-14-2011 10:35-0400 BMI (Body Mass Index) 31.15 kg/m2 Melina Hook RN [facility] Work Phone: 01-14-2011 10:35-0400 Body Temperature 98.6 [degF] Melina Hook RN [facility] Work Phone: Comment on above: Method: Oral 01-14-2011 10:35-0400 Body weight 90.22 kg Melina Hook RN [facility] Work Phone: 01-14-2011 10:35-0400 BP Diastolic 82 mm[Hg] Melina Hook RN [facility] Work Phone: Comment on above: Patient Position: Sitting; Cuff Location : Left Arm; Cuff Size: Standard 01-14-2011 10:35-0400 BP Systolic 126 mm[Hg] Melina Hook RN [facility] Work Phone: Comment on above: Patient Position: Sitting; Cuff Location : Left Arm; Cuff Size: Standard 01-14-2011 10:35-0400 BSA (Body Surface Area) 2.02 m2 Melina Hook RN [facility] Work Phone: 01-14-2011 10:35-0400 Height 170.18 cm Melina Hook RN [facility] Work Phone: 01-14-2011 10:35-0400 Pulse (Heart Rate) 68 /min Melina Hook RN [facility] Work Phone: Comment on above: Pattern: Regular 01-14-2011 10:35-0400 Respiratory Rate 18 /min Melina oHok RN [facility] Work Phone: Comment on above: Pattern: Unlabored 01-14-2011 10:35-0400 Weight 90.22 kg Brittani Shepherd [facility] Work Phone: 12-14-2010 10:43-0400 BMI (Body Mass Index) 30.56 kg/m2 Kalyani Hernandez RN [facility] Work Phone: 12-14-2010 10:43-0400 Body weight 88.51 kg Kalyani Hernandez RN [facility] Work Phone: 12-14-2010 10:43-0400 BP Diastolic 70 mm[Hg] Kalyani Hernandez RN [facility] Work Phone: Comment on above: Patient Position: Sitting; Cuff Location : Left Arm; Cuff Size: Large 12-14-2010 10:43-0400 BP Systolic 122 mm[Hg] Kalyani Hernandez RN [facility] Work Phone: Comment on above: Patient Position: Sitting; Cuff Location : Left Arm; Cuff Size: Large 12-14-2010 10:43-0400 BSA (Body Surface Area) 2 m2 Kalyani Hernandez RN [facility] Work Phone: 12-14-2010 10:43-0400 Height 170.18 cm Kalyani Hernandez RN [facility] Work Phone: 12-14-2010 10:43-0400 Pulse (Heart Rate) 60 /min Kalyani Hernandez RN [facility] Work Phone: Comment on above: Pattern: Regular 12-14-2010 10:43-0400 Respiratory Rate 20 /min Kalyani Hernandez RN [facility] Work Phone: Comment on above: Pattern: Unlabored 12-14-2010 10:43-0400 Weight 88.51 kg Brittani Shepherd [facility] Work Phone: 11-26-2010 11:34-0400 BMI (Body Mass Index) 29.91 kg/m2 NITHIN Oden LPN [facility] Work Phone: 11-26-2010 11:34-0400 Body Temperature 97.9 [degF] NITHIN Oden LPN [facility] Work Phone: Comment on above: Method: Oral 11-26-2010 11:34-0400 Body weight 86.64 kg NITHIN Oden LPN [facility] Work Phone: 11-26-2010 11:34-0400 BP Diastolic 78 mm[Hg] NITHIN Oden LPN [facility] Work Phone: Comment on above: Patient Position: Sitting; Cuff Location : Left Arm; Cuff Size: Standard 11-26-2010 11:34-0400 BP Systolic 118 mm[Hg] NITHIN Oden LPN [facility] Work Phone: Comment on above: Patient Position: Sitting; Cuff Location : Left Arm; Cuff Size: Standard 11-26-2010 11:34-0400 BSA (Body Surface Area) 1.98 m2 NITHIN Oden LPN [facility] Work Phone: 11-26-2010 11:34-0400 Height 170.18 cm NITHIN Oden [facility] Work Phone: 11-26-2010 11:34-0400 Pulse (Heart Rate) 74 /min NITHIN Oden [facility] Work Phone: Comment on above: Pattern: Regular 11-26-2010 11:34-0400 Respiratory Rate 18 /min NITHIN Oden [facility] Work Phone: Comment on above: Pattern: Unlabored 11-26-2010 11:34-0400 Weight 86.64 kg Brittani Shepherd [facility] Work Phone: 11-11-2010 10:26-0400 BMI (Body Mass Index) 30.78 kg/m2 Melina Hook RN [facility] Work Phone: 11-11-2010 10:26-0400 Body Temperature 97.9 [degF] Melina Hook RN [facility] Work Phone: Comment on above: Method: Oral 11-11-2010 10:26-0400 Body weight 89.13 kg Melina Hook RN [facility] Work Phone: 11-11-2010 10:26-0400 BP Diastolic 84 mm[Hg] Melina Hook RN [facility] Work Phone: Comment on above: Patient Position: Sitting; Cuff Location : Left Arm; Cuff Size: Standard 11-11-2010 10:26-0400 BP Systolic 120 mm[Hg] Melina Hook RN [facility] Work Phone: Comment on above: Patient Position: Sitting; Cuff Location : Left Arm; Cuff Size: Standard 11-11-2010 10:26-0400 BSA (Body Surface Area) 2.01 m2 Melina Hook RN [facility] Work Phone: 11-11-2010 10:26-0400 Height 170.18 cm Melina Hook RN [facility] Work Phone: 11-11-2010 10:26-0400 Pulse (Heart Rate) 80 /min Melina Hook RN [facility] Work Phone: Comment on above: Pattern: Regular 11-11-2010 10:26-0400 Respiratory Rate 16 /min Melina Hook RN [facility] Work Phone: Comment on above: Pattern: Unlabored 11-11-2010 10:26-0400 Weight 89.13 kg Brittani Shepherd [facility] Work Phone: 08-18-2010 10:39-0400 BMI (Body Mass Index) 30.78 kg/m2 Kalyani Hernandez RN [facility] Work Phone: 08-18-2010 10:39-0400 Body weight 89.13 kg Kalyani Hernandez RN [facility] Work Phone: 08-18-2010 10:39-0400 BP Diastolic 80 mm[Hg] Kalyani Hernandez RN [facility] Work Phone: Comment on above: Patient Position: Sitting; Cuff Location : Left Arm; Cuff Size: Large 08-18-2010 10:39-0400 BP Systolic 118 mm[Hg] Kalyani Hernandez RN [facility] Work Phone: Comment on above: Patient Position: Sitting; Cuff Location : Left Arm; Cuff Size: Large 08-18-2010 10:39-0400 BSA (Body Surface Area) 2.01 m2 Kalyani Hernandez RN [facility] Work Phone: 08-18-2010 10:39-0400 Height 170.18 cm Kalyani Hernandez RN [facility] Work Phone: 08-18-2010 10:39-0400 Pulse (Heart Rate) 80 /min Kalyani Hernandez RN [facility] Work Phone: Comment on above: Pattern: Regular 08-18-2010 10:39-0400 Respiratory Rate 20 /min Kalyani Hernandez RN [facility] Work Phone: Comment on above: Pattern: Unlabored 08-18-2010 10:39-0400 Weight 89.13 kg Brittani Shepherd [facility] Work Phone: 07-22-2010 09:27-0400 BMI (Body Mass Index) 30.93 kg/m2 Kalyani Hernandez RN [facility] Work Phone: 07-22-2010 09:27-0400 Body weight 89.59 kg Kalyani Hernandez RN [facility] Work Phone: 07-22-2010 09:27-0400 BP Diastolic 82 mm[Hg] Kalyani Hernandez RN [facility] Work Phone: Comment on above: Patient Position: Sitting; Cuff Location : Left Arm; Cuff Size: Large 07-22-2010 09:27-0400 BP Systolic 122 mm[Hg] Kalyani Hernandez RN [facility] Work Phone: Comment on above: Patient Position: Sitting; Cuff Location : Left Arm; Cuff Size: Large 07-22-2010 09:27-0400 BSA (Body Surface Area) 2.01 m2 Kalyani Hernandez RN [facility] Work Phone: 07-22-2010 09:27-0400 Height 170.18 cm Kalyani Hernandez RN [facility] Work Phone: 07-22-2010 09:27-0400 Pulse (Heart Rate) 68 /min Kalyani Hernandez RN [facility] Work Phone: Comment on above: Pattern: Regular 07-22-2010 09:27-0400 Respiratory Rate 18 /min Kalyani Hernandez RN [facility] Work Phone: Comment on above: Pattern: Unlabored 07-22-2010 09:27-0400 Weight 89.59 kg Brittani Shepherd [facility] Work Phone: 07-16-2010 08:33-0400 BMI (Body Mass Index) 30.88 kg/m2 Kalyani Hernandez RN [facility] Work Phone: 07-16-2010 08:33-0400 Body weight 89.44 kg Kalyani Hernandez RN [facility] Work Phone: 07-16-2010 08:33-0400 BP Diastolic 82 mm[Hg] Kalyani Hernandez RN [facility] Work Phone: Comment on above: Patient Position: Sitting; Cuff Location : Left Arm; Cuff Size: Large 07-16-2010 08:33-0400 BP Systolic 124 mm[Hg] Kalyani Hernandez RN [facility] Work Phone: Comment on above: Patient Position: Sitting; Cuff Location : Left Arm; Cuff Size: Large 07-16-2010 08:33-0400 BSA (Body Surface Area) 2.01 m2 Kalyani Hernandez RN [facility] Work Phone: 07-16-2010 08:33-0400 Height 170.18 cm Kalyani Hernandez RN [facility] Work Phone: 07-16-2010 08:33-0400 Pulse (Heart Rate) 68 /min Kalyani Hernandez RN [facility] Work Phone: Comment on above: Pattern: Regular 07-16-2010 08:33-0400 Respiratory Rate 20 /min Kalyani Hernandez RN [facility] Work Phone: Comment on above: Pattern: Unlabored 07-16-2010 08:33-0400 Weight 89.44 kg Brittani Shepherd [facility] Work Phone: 01-13-2010 10:31-0400 BMI (Body Mass Index) 30.58 kg/m2 Kalyani Hernandez RN [facility] Work Phone: 01-13-2010 10:31-0400 Body weight 88.57 kg Kalyani Hernandez RN [facility] Work Phone: 01-13-2010 10:31-0400 BP Diastolic 64 mm[Hg] Kalyani Hernandez RN [facility] Work Phone: Comment on above: Patient Position: Sitting; Cuff Location : Left Arm; Cuff Size: Large 01-13-2010 10:31-0400 BP Systolic 124 mm[Hg] Kalyani Hernandez RN [facility] Work Phone: Comment on above: Patient Position: Sitting; Cuff Location : Left Arm; Cuff Size: Large 01-13-2010 10:31-0400 BSA (Body Surface Area) 2 m2 Kalyani Hernandez RN [facility] Work Phone: 01-13-2010 10:31-0400 Height 170.18 cm Kalyani Hernandez RN [facility] Work Phone: 01-13-2010 10:31-0400 Pulse (Heart Rate) 64 /min Kalyani Hernandez RN [facility] Work Phone: Comment on above: Pattern: Regular 01-13-2010 10:31-0400 Respiratory Rate 20 /min Kalyani Hernandez RN [facility] Work Phone: Comment on above: Pattern: Unlabored 01-13-2010 10:31-0400 Weight 88.57 kg Brittani Shepherd [facility] Work Phone: 11-25-2009 08:11-0400 Body Temperature 98.7 [degF] Brittani Shepherd [facility] Work Phone: Comment on above: Method: Oral 11-25-2009 08:11-0400 Body weight 85.73 kg Brittani Shepherd [facility] Work Phone: 11-25-2009 08:11-0400 BP Diastolic 82 mm[Hg] Brittani Shepherd [facility] Work Phone: Comment on above: Patient Position: Sitting; Cuff Location : Left Arm; Cuff Size: Standard 11-25-2009 08:11-0400 BP Systolic 142 mm[Hg] Brittani Shepherd [facility] Work Phone: Comment on above: Patient Position: Sitting; Cuff Location : Left Arm; Cuff Size: Standard 11-25-2009 08:11-0400 Pulse (Heart Rate) 76 /min Brittani Shepherd [facility] Work Phone: Comment on above: Pattern: Regular 11-25-2009 08:11-0400 Pulse Oximetry 98 % Brittani Shepherd [facility] Work Phone: Comment on above: Room air 11-25-2009 08:11-0400 Respiratory Rate 18 /min Brittani Shepherd [facility] Work Phone: Comment on above: Pattern: Unlabored 11-25-2009 08:11-0400 SaO2% (BldA) [Mass fraction] 98 % Brittani Shepherd DO Work Phone: [facility]; [facility] Work Phone: 11-25-2009 08:11-0400 Weight 85.73 kg Brittani Shepherd [facility] Work Phone: 10-15-2009 10:53-0400 Body weight 85.73 kg Virginia Perez RN [facility] Work Phone: 10-15-2009 10:53-0400 BP Diastolic 80 mm[Hg] Virginia Perez RN [facility] Work Phone: Comment on above: Patient Position: Sitting; Cuff Location : Left Arm; Cuff Size: Standard 10-15-2009 10:53-0400 BP Systolic 124 mm[Hg] Virginia Perez RN [facility] Work Phone: Comment on above: Patient Position: Sitting; Cuff Location : Left Arm; Cuff Size: Standard 10-15-2009 10:53-0400 Pulse (Heart Rate) 80 /min Virginia Perez RN [facility] Work Phone: Comment on above: Pattern: Regular 10-15-2009 10:53-0400 Pulse Oximetry 97 % Brittani Joao [facility] Work Phone: Comment on above: Room air 10-15-2009 10:53-0400 Respiratory Rate 16 /min Virginia Perez RN [facility] Work Phone: Comment on above: Pattern: Unlabored 10-15-2009 10:53-0400 SaO2% (BldA) [Mass fraction] 97 % Virginia Perez RN [facility]; [facility] Work Phone: 10-15-2009 10:53-0400 Weight 85.73 kg Brittani Vogelon [facility] Work Phone: 09-10-2009 08:24-0400 Body weight 86.18 kg Virginia Perez RN [facility] Work Phone: 09-10-2009 08:24-0400 BP Diastolic 82 mm[Hg] Virginia Perez RN [facility] Work Phone: Comment on above: Patient Position: Sitting; Cuff Location : Left Arm; Cuff Size: Large 09-10-2009 08:24-0400 BP Systolic 112 mm[Hg] Virginia Perez RN [facility] Work Phone: Comment on above: Patient Position: Sitting; Cuff Location : Left Arm; Cuff Size: Large 09-10-2009 08:24-0400 Pulse (Heart Rate) 72 /min Virginia Perez RN [facility] Work Phone: Comment on above: Pattern: Regular 09-10-2009 08:24-0400 Respiratory Rate 20 /min Virginia Perez RN [facility] Work Phone: Comment on above: Pattern: Unlabored 09-10-2009 08:24-0400 Weight 86.18 kg Brittani Shepherd [facility] Work Phone: 06-17-2009 10:25-0500 BMI (Body Mass Index) 29.51 kg/m2 Kalyani Hernandez RN [facility] Work Phone: 06-17-2009 10:25-0500 Body weight 85.48 kg Kalyani Hernandez RN [facility] Work Phone: 06-17-2009 10:25-0500 BP Diastolic 80 mm[Hg] Kalyani Hernandez RN [facility] Work Phone: Comment on above: Patient Position: Sitting; Cuff Location : Left Arm; Cuff Size: Large 06-17-2009 10:25-0500 BP Systolic 122 mm[Hg] Kalyani Hernandez RN [facility] Work Phone: Comment on above: Patient Position: Sitting; Cuff Location : Left Arm; Cuff Size: Large 06-17-2009 10:25-0500 BSA (Body Surface Area) 1.97 m2 Kalyani Hernandez RN [facility] Work Phone: 06-17-2009 10:25-0500 Height 170.18 cm Kalyani Hernandez RN [facility] Work Phone: 06-17-2009 10:25-0500 Pulse (Heart Rate) 80 /min Kalyani Hernandez RN [facility] Work Phone: Comment on above: Pattern: Regular 06-17-2009 10:25-0500 Respiratory Rate 20 /min Kalyani Hernandez RN [facility] Work Phone: Comment on above: Pattern: Unlabored 06-17-2009 10:25-0500 Weight 85.48 kg Brittani Shepherd [facility] Work Phone: 05-27-2009 10:39-0500 BMI (Body Mass Index) 30.12 kg/m2 Kalyani Hernandez RN [facility] Work Phone: 05-27-2009 10:39-0500 Body weight 87.23 kg Kalyani Hernandez RN [facility] Work Phone: 05-27-2009 10:39-0500 BP Diastolic 64 mm[Hg] Kalyani Hernandez RN [facility] Work Phone: Comment on above: Patient Position: Sitting; Cuff Location : Left Arm; Cuff Size: Large 05-27-2009 10:39-0500 BP Systolic 132 mm[Hg] Kalyani Hernandez RN [facility] Work Phone: Comment on above: Patient Position: Sitting; Cuff Location : Left Arm; Cuff Size: Large 05-27-2009 10:39-0500 BSA (Body Surface Area) 1.99 m2 Kalyani Hernandez RN [facility] Work Phone: 05-27-2009 10:39-0500 Height 170.18 cm Kalyani Hernandez RN [facility] Work Phone: 05-27-2009 10:39-0500 Pulse (Heart Rate) 68 /min Kalyani Hernandez RN [facility] Work Phone: Comment on above: Pattern: Regular 05-27-2009 10:39-0500 Respiratory Rate 20 /min Kalyani Hernandez RN [facility] Work Phone: Comment on above: Pattern: Unlabored 05-27-2009 10:39-0500 Weight 87.23 kg Brittani Shepherd [facility] Work Phone: 05-11-2009 10:14-0500 BMI (Body Mass Index) 29.8 kg/m2 Kalyani Hernandez RN [facility] Work Phone: 05-11-2009 10:14-0500 Body weight 86.3 kg Kalyani Hernandez RN [facility] Work Phone: 05-11-2009 10:14-0500 BP Diastolic 78 mm[Hg] Kalyani Hernandez RN [facility] Work Phone: Comment on above: Patient Position: Sitting; Cuff Location : Left Arm; Cuff Size: Large 05-11-2009 10:14-0500 BP Systolic 124 mm[Hg] Kalyani Hernandez RN [facility] Work Phone: Comment on above: Patient Position: Sitting; Cuff Location : Left Arm; Cuff Size: Large 05-11-2009 10:14-0500 BSA (Body Surface Area) 1.98 m2 Kalyani Hernandez RN [facility] Work Phone: 05-11-2009 10:14-0500 Height 170.18 cm Kalyani Hernandez RN [facility] Work Phone: 05-11-2009 10:14-0500 Pulse (Heart Rate) 76 /min Klayani Hernandez RN [facility] Work Phone: Comment on above: Pattern: Regular 05-11-2009 10:14-0500 Respiratory Rate 20 /min Kalyani Hernandez RN [facility] Work Phone: Comment on above: Pattern: Unlabored 05-11-2009 10:14-0500 Weight 86.3 kg Brittani Shepherd [facility] Work Phone: 04-30-2009 10:54-0500 BMI (Body Mass Index) 29.8 kg/m2 Kalyani Hernandez RN [facility] Work Phone: 04-30-2009 10:54-0500 Body weight 86.3 kg Kalyani Hernandez RN [facility] Work Phone: 04-30-2009 10:54-0500 BP Diastolic 76 mm[Hg] Kalyani Hernandez RN [facility] Work Phone: Comment on above: Patient Position: Sitting; Cuff Location : Left Arm; Cuff Size: Standard 04-30-2009 10:54-0500 BP Systolic 124 mm[Hg] Kalyani Hernandez RN [facility] Work Phone: Comment on above: Patient Position: Sitting; Cuff Location : Left Arm; Cuff Size: Standard 04-30-2009 10:54-0500 BSA (Body Surface Area) 1.98 m2 Kalyani Hernandez RN [facility] Work Phone: 04-30-2009 10:54-0500 Height 170.18 cm Kalyani Hernandez RN [facility] Work Phone: 04-30-2009 10:54-0500 Pulse (Heart Rate) 72 /min Kalyani Hernandez RN [facility] Work Phone: Comment on above: Pattern: Regular 04-30-2009 10:54-0500 Respiratory Rate 20 /min Kalyani Hernandez RN [facility] Work Phone: Comment on above: Pattern: Unlabored 04-30-2009 10:54-0500 Weight 86.3 kg Brittani Shepherd [facility] Work Phone: 04-22-2009 11:29-0500 BMI (Body Mass Index) 29.8 kg/m2 Kalyani Hernandez RN [facility] Work Phone: 04-22-2009 11:29-0500 Body weight 86.3 kg Kalyani Hernandez RN [facility] Work Phone: 04-22-2009 11:29-0500 BP Diastolic 78 mm[Hg] Kalyani Hernandez RN [facility] Work Phone: Comment on above: Patient Position: Sitting; Cuff Location : Left Arm; Cuff Size: Large 04-22-2009 11:29-0500 BP Systolic 124 mm[Hg] Kalyani Hernandez RN [facility] Work Phone: Comment on above: Patient Position: Sitting; Cuff Location : Left Arm; Cuff Size: Large 04-22-2009 11:29-0500 BSA (Body Surface Area) 1.98 m2 Kalyani Hernandez RN [facility] Work Phone: 04-22-2009 11:29-0500 Height 170.18 cm Kalyani Hernandez RN [facility] Work Phone: 04-22-2009 11:29-0500 Pulse (Heart Rate) 64 /min Kalyani Hernandez RN [facility] Work Phone: Comment on above: Pattern: Regular 04-22-2009 11:29-0500 Respiratory Rate 20 /min Kalyani Hernandez RN [facility] Work Phone: Comment on above: Pattern: Unlabored 04-22-2009 11:29-0500 Weight 86.3 kg Brittani Shepherd [facility] Work Phone: 03-09-2009 10:03-0500 BMI (Body Mass Index) 30.55 kg/m2 Mihaela Barrera [facility] Work Phone: 03-09-2009 10:03-0500 Body weight 88.48 kg Mihaela Gerald [facility] Work Phone: 03-09-2009 10:03-0500 BP Diastolic 70 mm[Hg] Mihaela Gerald [facility] Work Phone: Comment on above: Patient Position: Supine; Cuff Location: Left Arm; Cuff Size: Standard 03-09-2009 10:03-0500 BP Systolic 112 mm[Hg] Mihaela Kim [facility] Work Phone: Comment on above: Patient Position: Supine; Cuff Location: Left Arm; Cuff Size: Standard 03-09-2009 10:03-0500 BSA (Body Surface Area) 2 m2 Mihaela Gerald [facility] Work Phone: 03-09-2009 10:03-0500 Head Circumference 0 cm Brittani Shepherd [facility] Work Phone: 03-09-2009 10:03-0500 Head Occipital-frontal circumference 0 cm Mihaela Kim [facility]; [facility] Work Phone: 03-09-2009 10:03-0500 Height 170.18 cm Mihaela Gerald [facility] Work Phone: 03-09-2009 10:03-0500 Pulse (Heart Rate) 80 /min Mihaela Gerald [facility] Work Phone: Comment on above: Pattern: Regular 03-09-2009 10:03-0500 Respiratory Rate 16 /min Mihaela Gerald [facility] Work Phone: Comment on above: Pattern: Unlabored 03-09-2009 10:03-0500 Weight 88.48 kg Brittani Shepherd [facility] Work Phone: 02-19-2009 14:39-0500 BMI (Body Mass Index) 30.08 kg/m2 Mihaela Kim [facility] Work Phone: 02-19-2009 14:39-0500 Body weight 87.12 kg Mihaela Gerald [facility] Work Phone: 02-19-2009 14:39-0500 BP Diastolic 74 mm[Hg] Mihaela Gerald [facility] Work Phone: Comment on above: Patient Position: Supine; Cuff Location: Left Arm; Cuff Size: Standard 02-19-2009 14:39-0500 BP Systolic 118 mm[Hg] Mihaela Gerald [facility] Work Phone: Comment on above: Patient Position: Supine; Cuff Location: Left Arm; Cuff Size: Standard 02-19-2009 14:39-0500 BSA (Body Surface Area) 1.99 m2 Mihaela Kim [facility] Work Phone: 02-19-2009 14:39-0500 Head Circumference 0 cm Brittani Shepherd [facility] Work Phone: 02-19-2009 14:39-0500 Head Occipital-frontal circumference 0 cm Mihaela Gerald [facility]; [facility] Work Phone: 02-19-2009 14:39-0500 Height 170.18 cm Mihaela Gerald [facility] Work Phone: 02-19-2009 14:39-0500 Pulse (Heart Rate) 72 /min Mihaela Gerald [facility] Work Phone: Comment on above: Pattern: Regular 02-19-2009 14:39-0500 Respiratory Rate 16 /min Mihaela Gerald [facility] Work Phone: Comment on above: Pattern: Unlabored 02-19-2009 14:39-0500 Weight 87.12 kg Brittani Shepherd [facility] Work Phone: 06-05-2008 10:26-0500 BMI (Body Mass Index) 30.08 kg/m2 Kalyani Hernandez RN [facility] Work Phone: 06-05-2008 10:26-0500 Body weight 87.12 kg Kalyani Hernandez RN [facility] Work Phone: 06-05-2008 10:26-0500 BP Diastolic 78 mm[Hg] Kalyani Hernandez RN [facility] Work Phone: Comment on above: Patient Position: Sitting; Cuff Location : Left Arm; Cuff Size: Large 06-05-2008 10:26-0500 BP Systolic 128 mm[Hg] Kalyani Hernandez RN [facility] Work Phone: Comment on above: Patient Position: Sitting; Cuff Location : Left Arm; Cuff Size: Large 06-05-2008 10:26-0500 BSA (Body Surface Area) 1.99 m2 Kalyani Hernandez RN [facility] Work Phone: 06-05-2008 10:26-0500 Head Circumference 0 cm Brittani Shepherd [facility] Work Phone: 06-05-2008 10:26-0500 Head Occipital-frontal circumference 0 cm Kalyani Hernandez RN [facility]; [facility] Work Phone: 06-05-2008 10:26-0500 Height 170.18 cm Kalyani Hernandez RN [facility] Work Phone: 06-05-2008 10:26-0500 Pulse (Heart Rate) 72 /min Kalyani Hernandez RN [facility] Work Phone: Comment on above: Pattern: Regular 06-05-2008 10:26-0500 Respiratory Rate 20 /min Kalyani Hernandez RN [facility] Work Phone: Comment on above: Pattern: Unlabored 06-05-2008 10:26-0500 Weight 87.12 kg Brittani Shepherd [facility] Work Phone: 06-04-2008 11:45-0500 BMI (Body Mass Index) 29.21 kg/m2 Kalyani Hernandez RN [facility] Work Phone: 06-04-2008 11:45-0500 Body weight 84.6 kg Kalyani Hernandez RN [facility] Work Phone: 06-04-2008 11:45-0500 BP Diastolic 78 mm[Hg] Kalyani Hernandez RN [facility] Work Phone: Comment on above: Patient Position: Sitting; Cuff Location : Left Arm; Cuff Size: Standard 06-04-2008 11:45-0500 BP Systolic 128 mm[Hg] Kalyani Hernandez RN [facility] Work Phone: Comment on above: Patient Position: Sitting; Cuff Location : Left Arm; Cuff Size: Standard 06-04-2008 11:45-0500 BSA (Body Surface Area) 1.96 m2 Kalyani Hernandez RN [facility] Work Phone: 06-04-2008 11:45-0500 Head Circumference 0 cm Brittani Shepherd [facility] Work Phone: 06-04-2008 11:45-0500 Head Occipital-frontal circumference 0 cm Kalyani Hernandez RN [facility]; [facility] Work Phone: 06-04-2008 11:45-0500 Height 170.18 cm Kalyani Hernandez RN [facility] Work Phone: 06-04-2008 11:45-0500 Pulse (Heart Rate) 88 /min Kalyani Hernandez RN [facility] Work Phone: Comment on above: Pattern: Regular 06-04-2008 11:45-0500 Respiratory Rate 18 /min Kalyani Hernandez RN [facility] Work Phone: Comment on above: Pattern: Unlabored 06-04-2008 11:45-0500 Weight 84.6 kg Brittani Shepherd [facility] Work Phone: 04-22-2008 10:37-0500 BMI (Body Mass Index) 29.21 kg/m2 Kalyani Hernandez RN [facility] Work Phone: 04-22-2008 10:37-0500 Body weight 84.6 kg Kalyani Hernandez RN [facility] Work Phone: 04-22-2008 10:37-0500 BP Diastolic 70 mm[Hg] Kalyani Hernandez RN [facility] Work Phone: Comment on above: Patient Position: Sitting; Cuff Location : Left Arm; Cuff Size: Large 04-22-2008 10:37-0500 BP Systolic 122 mm[Hg] Kalyani Hernandez RN [facility] Work Phone: Comment on above: Patient Position: Sitting; Cuff Location : Left Arm; Cuff Size: Large 04-22-2008 10:37-0500 BSA (Body Surface Area) 1.96 m2 Kalyani Hernandez RN [facility] Work Phone: 04-22-2008 10:37-0500 Head Circumference 0 cm Brittani Shepherd [facility] Work Phone: 04-22-2008 10:37-0500 Head Occipital-frontal circumference 0 cm Kalyani Hernandez RN [facility]; [facility] Work Phone: 04-22-2008 10:37-0500 Height 170.18 cm Kalyani Hernandez RN [facility] Work Phone: 04-22-2008 10:37-0500 Pulse (Heart Rate) 80 /min Kalyani Hernandez RN [facility] Work Phone: Comment on above: Pattern: Regular 04-22-2008 10:37-0500 Respiratory Rate 20 /min Kalyani Hernandez RN [facility] Work Phone: Comment on above: Pattern: Unlabored 04-22-2008 10:37-0500 Weight 84.6 kg Brittani Shepherd [facility] Work Phone: 11-01-2007 09:59-0400 BMI (Body Mass Index) 31.05 kg/m2 Kalyani Hernandez RN [facility] Work Phone: 11-01-2007 09:59-0400 Body Temperature 98.2 [degF] Kalyani Hernandez RN [facility] Work Phone: Comment on above: Method: Oral 11-01-2007 09:59-0400 Body weight 89.93 kg Kalyani Hernandez RN [facility] Work Phone: 11-01-2007 09:59-0400 BP Diastolic 62 mm[Hg] Kalyani Hernandez RN [facility] Work Phone: Comment on above: Patient Position: Sitting; Cuff Location : Left Arm; Cuff Size: Large 11-01-2007 09:59-0400 BP Systolic 110 mm[Hg] Kalyani Hernandez RN [facility] Work Phone: Comment on above: Patient Position: Sitting; Cuff Location : Left Arm; Cuff Size: Large 11-01-2007 09:59-0400 BSA (Body Surface Area) 2.01 m2 Kalyani Hernandez RN [facility] Work Phone: 11-01-2007 09:59-0400 Head Circumference 0 cm Brittani Vogelon [facility] Work Phone: 11-01-2007 09:59-0400 Head Occipital-frontal circumference 0 cm Kalyani Hernandez RN [facility]; [facility] Work Phone: 11-01-2007 09:59-0400 Height 170.18 cm Kalyani Hernandez RN [facility] Work Phone: 11-01-2007 09:59-0400 Pulse (Heart Rate) 64 /min Kalyani Hernandez RN [facility] Work Phone: Comment on above: Pattern: Regular 11-01-2007 09:59-0400 Respiratory Rate 20 /min Kalyani Hernandez RN [facility] Work Phone: Comment on above: Pattern: Unlabored 11-01-2007 09:59-0400 Weight 89.93 kg Brittani Shepherd [facility] Work Phone: 06-13-2007 08:39-0500 BMI (Body Mass Index) 30.55 kg/m2 Kalyani Hernandez RN [facility] Work Phone: 06-13-2007 08:39-0500 Body weight 88.48 kg Kalyani Hernandez RN [facility] Work Phone: 06-13-2007 08:39-0500 BP Diastolic 82 mm[Hg] Kalyani Hernandez RN [facility] Work Phone: Comment on above: Patient Position: Sitting; Cuff Location : Right Arm; Cuff Size: Standard 06-13-2007 08:39-0500 BP Systolic 128 mm[Hg] Kalyani Hernandez RN [facility] Work Phone: Comment on above: Patient Position: Sitting; Cuff Location : Right Arm; Cuff Size: Standard 06-13-2007 08:39-0500 BSA (Body Surface Area) 2 m2 Kalyani Hernandez RN [facility] Work Phone: 06-13-2007 08:39-0500 Head Circumference 0 cm Brittani Joao [facility] Work Phone: 06-13-2007 08:39-0500 Head Occipital-frontal circumference 0 cm Kalyani Hernandez RN [facility]; [facility] Work Phone: 06-13-2007 08:39-0500 Height 170.18 cm Kalyani Hernandez RN [facility] Work Phone: 06-13-2007 08:39-0500 Pulse (Heart Rate) 64 /min Kalyani Hernandez RN [facility] Work Phone: Comment on above: Pattern: Regular 06-13-2007 08:39-0500 Respiratory Rate 16 /min Kalyani Hernandez RN [facility] Work Phone: Comment on above: Pattern: Unlabored 06-13-2007 08:39-0500 Weight 88.48 kg Brittani Shepherd [facility] Work Phone: 05-04-2007 08:53-0500 BMI (Body Mass Index) 30.57 kg/m2 Kalyani Hernandez RN [facility] Work Phone: 05-04-2007 08:53-0500 Body Temperature 98.6 [degF] Kalyani Hernandez RN [facility] Work Phone: Comment on above: Method: Oral 05-04-2007 08:53-0500 Body weight 88.54 kg Kalyani Hernandez RN [facility] Work Phone: 05-04-2007 08:53-0500 BP Diastolic 80 mm[Hg] Kalyani Hernandez RN [facility] Work Phone: Comment on above: Patient Position: Sitting; Cuff Location : Left Arm; Cuff Size: Large 05-04-2007 08:53-0500 BP Systolic 122 mm[Hg] Kalyani Hernandez RN [facility] Work Phone: Comment on above: Patient Position: Sitting; Cuff Location : Left Arm; Cuff Size: Large 05-04-2007 08:53-0500 BSA (Body Surface Area) 2 m2 Kalyani Hernandez RN [facility] Work Phone: 05-04-2007 08:53-0500 Head Circumference 0 cm Brittani Shepherd [facility] Work Phone: 05-04-2007 08:53-0500 Head Occipital-frontal circumference 0 cm Kalyani Hernandez RN [facility]; [facility] Work Phone: 05-04-2007 08:53-0500 Height 170.18 cm Kalyani Hernandez RN [facility] Work Phone: 05-04-2007 08:53-0500 Pulse (Heart Rate) 60 /min Kalyani Hernandez RN [facility] Work Phone: Comment on above: Pattern: Regular 05-04-2007 08:53-0500 Respiratory Rate 20 /min Kalyani Hernandez RN [facility] Work Phone: Comment on above: Pattern: Unlabored 05-04-2007 08:53-0500 Weight 88.54 kg Brittani Shepherd [facility] Work Phone: 04-19-2007 08:25-0500 BMI (Body Mass Index) 30.57 kg/m2 Kalyani Hernandez RN [facility] Work Phone: 04-19-2007 08:25-0500 Body weight 88.54 kg Kalyani Hernandez RN [facility] Work Phone: 04-19-2007 08:25-0500 BP Diastolic 84 mm[Hg] Kalyani Hernandez RN [facility] Work Phone: Comment on above: Patient Position: Sitting; Cuff Location : Left Arm; Cuff Size: Standard 04-19-2007 08:25-0500 BP Systolic 132 mm[Hg] Kalyani Hernandez RN [facility] Work Phone: Comment on above: Patient Position: Sitting; Cuff Location : Left Arm; Cuff Size: Standard 04-19-2007 08:25-0500 BSA (Body Surface Area) 2 m2 Kalyani Hernandez RN [facility] Work Phone: 04-19-2007 08:25-0500 Head Circumference 0 cm Brittani Shepherd [facility] Work Phone: 04-19-2007 08:25-0500 Head Occipital-frontal circumference 0 cm Kalyani Hernandez RN [facility]; [facility] Work Phone: 04-19-2007 08:25-0500 Height 170.18 cm Kalyani Hrenandez RN [facility] Work Phone: 04-19-2007 08:25-0500 Pulse (Heart Rate) 80 /min Kalyani Hernandez RN [facility] Work Phone: Comment on above: Pattern: Regular 04-19-2007 08:25-0500 Respiratory Rate 20 /min Kalyani Hernandez RN [facility] Work Phone: Comment on above: Pattern: Unlabored 04-19-2007 08:25-0500 Weight 88.54 kg Brittani Shepherd [facility] Work Phone: 04-13-2007 08:13-0500 BMI (Body Mass Index) 30.93 kg/m2 Kalyani Hernandez RN [facility] Work Phone: 04-13-2007 08:13-0500 Body weight 89.59 kg Kalyani Hernandez RN [facility] Work Phone: 04-13-2007 08:13-0500 BP Diastolic 98 mm[Hg] Kalyani Hernandez RN [facility] Work Phone: Comment on above: Patient Position: Sitting; Cuff Location : Right Arm; Cuff Size: Standard 04-13-2007 08:13-0500 BP Systolic 142 mm[Hg] Kalyani Hernandez RN [facility] Work Phone: Comment on above: Patient Position: Sitting; Cuff Location : Right Arm; Cuff Size: Standard 04-13-2007 08:13-0500 BSA (Body Surface Area) 2.01 m2 Kalyani Hernandez RN [facility] Work Phone: 04-13-2007 08:13-0500 Head Circumference 0 cm Brittani Shepherd [facility] Work Phone: 04-13-2007 08:13-0500 Head Occipital-frontal circumference 0 cm Kalyani Hernandez RN [facility]; [facility] Work Phone: 04-13-2007 08:13-0500 Height 170.18 cm Kalyani Hernandez RN [facility] Work Phone: 04-13-2007 08:13-0500 Pulse (Heart Rate) 80 /min Kalyani Hernandez RN [facility] Work Phone: Comment on above: Pattern: Regular 04-13-2007 08:13-0500 Respiratory Rate 20 /min Kalyani Hernandez RN [facility] Work Phone: Comment on above: Pattern: Labored 04-13-2007 08:13-0500 Weight 89.59 kg Brittani Shepherd [facility] Work Phone: 09-29-2006 12:02-0400 Body Temperature 98.1 [degF] NITHIN Oden LPN [facility] Work Phone: Comment on above: Method: Oral 09-29-2006 12:02-0400 Body weight 88.45 kg NITHIN Oden LPN [facility] Work Phone: 09-29-2006 12:02-0400 BP Diastolic 78 mm[Hg] NITHIN Oden LPN [facility] Work Phone: Comment on above: Patient Position: Sitting; Cuff Location : Left Arm; Cuff Size: Standard 09-29-2006 12:02-0400 BP Systolic 124 mm[Hg] NITHIN Oden LPN [facility] Work Phone: Comment on above: Patient Position: Sitting; Cuff Location : Left Arm; Cuff Size: Standard 09-29-2006 12:02-0400 Head Circumference 0 cm Brittani Shepherd [facility] Work Phone: 09-29-2006 12:02-0400 Head Occipital-frontal circumference 0 cm NITHIN Oden LPN [facility]; [facility] Work Phone: 09-29-2006 12:02-0400 Height 0 cm NITHIN Oden LPN [facility] Work Phone: 09-29-2006 12:02-0400 Pulse (Heart Rate) 74 /min NITHIN Oden LPN [facility] Work Phone: Comment on above: Pattern: Regular 09-29-2006 12:02-0400 Respiratory Rate 20 /min NITHIN Oden LPN [facility] Work Phone: Comment on above: Pattern: Unlabored 09-29-2006 12:02-0400 Weight 88.45 kg Brittani Shepherd [facility] Work Phone: 06-06-2006 10:15-0500 Body Temperature 98.4 [degF] Brittani Shepherd [facility] Work Phone: Comment on above: Method: Oral 06-06-2006 10:15-0500 Body weight 83.15 kg Brittani Shepherd [facility] Work Phone: 06-06-2006 10:15-0500 BP Diastolic 82 mm[Hg] Brittani Shepherd [facility] Work Phone: Comment on above: Patient Position: Sitting; Cuff Location : Left Arm; Cuff Size: Standard 06-06-2006 10:15-0500 BP Systolic 132 mm[Hg] Brittani Shepherd [facility] Work Phone: Comment on above: Patient Position: Sitting; Cuff Location : Left Arm; Cuff Size: Standard 06-06-2006 10:15-0500 Head Circumference 0 cm Brittani Shepherd [facility] Work Phone: 06-06-2006 10:15-0500 Head Occipital-frontal circumference 0 cm Brittani Shepherd DO Work Phone: [facility]; [facility] Work Phone: 06-06-2006 10:15-0500 Height 0 cm Brittani Shepherd [facility] Work Phone: 06-06-2006 10:15-0500 Pulse (Heart Rate) 66 /min Brittani Shepherd [facility] Work Phone: Comment on above: Pattern: Regular 06-06-2006 10:15-0500 Respiratory Rate 16 /min Brittani Shepherd [facility] Work Phone: Comment on above: Pattern: Unlabored 06-06-2006 10:15-0500 Weight 83.15 kg Brittani Shepherd [facility] Work Phone: 05-17-2006 09:56-0500 BMI (Body Mass Index) 28.82 kg/m2 Peg Harding [employer] [facility] Work Phone: 05-17-2006 09:56-0500 Body Temperature 98.3 [degF] Peg Harding [employer] [facility] Work Phone: Comment on above: Method: Undefined 05-17-2006 09:56-0500 Body weight 83.46 kg Peg Harding [employer] [facility] Work Phone: 05-17-2006 09:56-0500 BP Diastolic 70 mm[Hg] Peg Harding [employer] MA[employer] [facility] Work Phone: Comment on above: Patient Position: Sitting; Cuff Location : Left Arm; Cuff Size: Large 05-17-2006 09:56-0500 BP Systolic 138 mm[Hg] Peg Harding [employer] OFF[employer] MA[employer] [facility] Work Phone: Comment on above: Patient Position: Sitting; Cuff Location : Left Arm; Cuff Size: Large 05-17-2006 09:56-0500 BSA (Body Surface Area) 1.95 m2 Peg Harding [employer] OFF[employer] MA[employer] [facility] Work Phone: 05-17-2006 09:56-0500 Head Circumference 0 cm Brittani Shepherd [facility] Work Phone: 05-17-2006 09:56-0500 Head Occipital-frontal circumference 0 cm Peg Harding [employer] OFFICE MA[employer] [facility]; [facility] Work Phone: 05-17-2006 09:56-0500 Height 170.18 cm Peg Harding [employer] OFFICE MA[employer] [facility] Work Phone: 05-17-2006 09:56-0500 Pulse (Heart Rate) 68 /min Peg Harding [employer] [facility] Work Phone: Comment on above: Pattern: Regular 05-17-2006 09:56-0500 Respiratory Rate 16 /min Peg Harding [employer] OFFICE MA[employer] [facility] Work Phone: Comment on above: Pattern: Undefined 05-17-2006 09:56-0500 Weight 83.46 kg Brittani Shepherd [facility] Work Phone: Encounters Encounter Date Encounter Type Care Provider Facility Start: 10-02-2024 ambulatory Brittani Shepherd Facilit y:[facility] Start: 09-24-2024 Non-patient / Non-visit Dr. Ismael knight DO -[facility] Start: 09-24-2024 End: 09-24-[address] Brittani Shepherd DO Work Phone: [facility] Work Phone: Start: 09-24-2024 End: 09-24-[address] Brittani Shepherd DO -Pulmonary Services/Neurology Work Phone: Start: 09-24-2024 End: 09-24-2024 ambulatory Brittani Shepherd Facility:[facility] Start: 08-20-2024 End: 08-20-[address] Brittani Shepherd DO Work Phone: [facility] Work Phone: Start: 08-20-2024 End: 08-20-[address] Brittani Shepherd DO -[facility] Work Phone: Start: 08-20-2024 End: 08-20-2024 ambulatory Brittani Shepherd Facility:[facility] Start: 06-25-2024 End: 06-25-[address] Mark Gómez MD -[facility] Start: 06-25-2024 End: 06-25-2024 ambulatory Mark Gómez Facility:[facility] Start: 06-11-2024 End: 06-11-2024 Office consultation new/estab patient 60 min Toribio Moe MD Work Phone: [facility] Comment on above: Oroantral fistula (P rimary Dx); Maxillary sinus mass Start: 06-11-2024 End: 06-11-2024 ambulatory [facility] Start: 05-15-2024 End: 05-15-[address] Dago Antony MD -Cat Scan [facility] Work Phone: Start: 05-15-2024 End: 05-15-2024 ambulatory Dago Antony Facility:[facility] Start: 12-14-2023 End: 12-14-2023 ambulatory Brittani Shepherd Facility:[facility] Start: 12-06-2023 End: 12-06-2023 ambulatory Brittani Shepherd Facility:[facility] Start: 08-22-2022 End: 08-22-2022 Office outpatient visit 25 minutes Brittani Shepherd DO Work Phone: [facility] Start: 08-22-2022 Brittani Fearo n DO Work Phone: [facility] Start: 08-15-2022 ambulatory Brittani Joao DO [facility] Start: 11-08-2021 End: 11-08-2021 Office outpatient visit 15 minutes Brittani Joao DO Work Phone: [facility] Start: 11-08-2021 Brittani Fearo n DO Work Phone: [facility] Start: 08-02-2021 End: 08-02-2021 Brittani Joao DO Work Phone: [facility] Start: 08-02-2021 End: 08-02-2021 Office outpatient visit 25 minutes Brittani Joao DO Work Phone: [facility] Start: 08-07-2020 End: 08-07-2020 Office outpatient visit 10 minutes Brittani Joao DO Work Phone: [facility] Start: 08-07-2020 Brittani Fearo n DO Work Phone: [facility] Start: 07-29-2020 End: 07-29-2020 Office outpatient visit 25 minutes Brittani Joao DO Work Phone: [facility] Start: 07-29-2020 Brittani Fearo n DO Work Phone: [facility] Start: 06-24-2019 End: 06-24-2019 Office outpatient visit 25 minutes Brittani Joao [facility] Start: 06-19-2019 End: 06-19-2019 Office outpatient visit 25 minutes Brittani Joao [facility] Start: 04-23-2019 End: 04-23-2019 Office outpatient visit 15 minutes Brittani Joao [facility] Start: 09-24-2018 End: 09-24-2018 Phone Encounter Brittani Joao [facility] Start: 09-24-2018 End: 09-24-2018 Brittani Joao DO Work Phone: [facility] Start: 09-24-2018 End: 09-24-2018 Office outpatient visit 10 minutes Brittani Joao [facility] Start: 09-24-2018 Review [facility] Start: 09-21-2018 End: 09-21-2018 Office outpatient visit 25 minutes [facility] Start: 03-20-2018 End: 03-20-2018 Annotation/Addendum Brittani Shepherd [facility] Start: 03-20-2018 End: 03-20-2018 Brittanielvis Shepherd DO Work Phone: [facility] Start: 03-20-2018 End: 03-20-2018 Office outpatient visit 25 minutes [facility] Start: 01-13-2018 End: 01-13-2018 Annotation/Addendum Brittani Shepherd [facility] Start: 01-13-2018 End: 01-13-2018 Brittani Joao DO Work Phone: [facility] Start: 01-12-2018 End: 01-12-2018 Office outpatient visit 15 minutes [facility] Start: 11-15-2017 End: 11-15-2017 Office outpatient visit 10 minutes Brittani [facility] Start: 06-23-2017 End: 06-23-2017 Office outpatient visit 15 minutes Brittani [facility] Start: 05-01-2017 End: 05-01-2017 Office outpatient visit 25 minutes Brittani [facility] Start: 11-30-2016 End: 11-30-2016 Office outpatient visit 15 minutes Brittani [facility] Start: 08-29-2016 End: 08-29-2016 Office outpatient visit 25 minutes Brittani [facility] Start: 08-24-2016 End: 08-25-2016 Office outpatient visit 10 minutes rBittani Parson [facility] Start: 04-26-2016 End: 04-26-2016 Office outpatient visit 15 minutes Brittani [facility] Start: 01-22-2016 End: 01-22-2016 Office outpatient visit 15 minutes Brittani [facility] Start: 12-10-2015 End: 12-10-2015 Patient encounter procedure Brittaniann-marie Shepherd DO Work Phone: [facility] Start: 12-10-2015 End: 12-10-2015 Periodic preventive med est patient 40-64yrs Brittani [facility] Start: 12-04-2015 End: 12-04-2015 Office outpatient visit 15 minutes Brittani Shepherd [facility] Start: 11-23-2015 End: 11-23-2015 Office outpatient visit 15 minutes Brittani Shepherd [facility] Start: 06-05-2015 End: 06-05-2015 Office outpatient visit 25 minutes Brittani Shepherd [facility] Start: 02-25-2015 End: 02-25-2015 Office outpatient visit 15 minutes Brittani Shepherd [facility] Start: 02-23-2015 End: 02-23-2015 Office outpatient visit 15 minutes Brittani Shepherd [facility] Start: 07-30-2014 End: 07-30-2014 Office outpatient visit 15 minutes Brittani Shepherd [facility] Start: 07-22-2014 End: 07-22-2014 Phone Encounter Brittani Shepherd [facility] Start: 07-22-2014 End: 07-22-2014 Brittani Shepherd DO Work Phone: [facility] Start: 05-30-2014 End: 05-30-2014 Office outpatient visit 25 minutes Brittani Shepherd [facility] Start: 03-03-2014 End: 03-03-2014 Office outpatient visit 15 minutes Brittani Shepherd [facility] Start: 08-14-2013 End: 08-14-2013 Office outpatient visit 15 minutes Brittani Shepherd [facility] Start: 07-31-2013 End: 07-31-2013 Office outpatient visit 25 minutes Brittani Shepherd [facility] Start: 07-29-2013 End: 07-29-2013 Office outpatient visit 25 minutes Brittani Shepherd [facility] Start: 07-26-2013 End: 07-26-2013 Phone Encounter [facility] Start: 07-26-2013 End: 07-26-2013 Brittani Shepherd DO Work Phone: [facility] Start: 07-25-2013 End: 07-25-2013 Patient encounter Brittani [facility] Start: 07-25-2013 End: 07-25-2013 Brittani Shepherd DO Work Phone: [facility] Start: 06-18-2013 End: 06-18-2013 Patient encounter Brittani Shepherd [facility] Start: 06-18-2013 End: 06-18-2013 Brittani Shepherd DO Work Phone: [facility] Start: 02-08-2013 End: 02-08-2013 Patient encounter Brittani Shepherd [facility] Start: 02-08-2013 End: 02-08-2013 Brittani Shepherd DO Work Phone: [facility] Start: 09-20-2012 End: 09-20-2012 Patient encounter Brittani Shepherd [facility] Start: 09-20-2012 End: 09-20-2012 Brittani Shepherd DO Work Phone: [facility] Start: 04-17-2012 End: 04-17-2012 Patient encounter Brittani Shepherd [facility] Start: 04-17-2012 End: 04-17-2012 Brittani Shepherd DO Work Phone: [facility] Start: 02-28-2012 End: 02-28-2012 Patient encounter Brittani Shepherd [facility] Start: 02-28-2012 End: 02-28-2012 Brittani Shepherd DO Work Phone: [facility] Start: 12-08-2011 End: 12-08-2011 Patient encounter Brittani Shepherd [facility] Start: 12-08-2011 End: 12-08-2011 Brittani Shepherd DO Work Phone: [facility] Start: 08-08-2011 End: 08-08-2011 Patient encounter Brittani Shepherd [facility] Start: 08-08-2011 End: 08-08-2011 Brittani Shepherd DO Work Phone: [facility] Internal Medicine Start: 01-14-2011 End: 01-14-2011 Patient encounter [facility]ani [facility] Start: 01-14-2011 End: 01-14-2011 Brittani Shepherd DO Work Phone: [facility] Start: 12-17-2010 End: 12-17-2010 Phone Encounter Brittani Shepherd [facility] Start: 12-17-2010 End: 12-17-2010 Brittani Vogelon DO Work Phone: [facility] Start: 12-14-2010 End: 12-14-2010 Patient encounter Brittani Shepherd [facility] Start: 12-14-2010 End: 12-14-2010 Brittani Shepherd DO Work Phone: [facility] Start: 11-26-2010 End: 11-26-2010 Patient encounter Brittani Shepherd [facility] Start: 11-26-2010 End: 11-26-2010 Brittani Shepherd DO Work Phone: [facility] Start: 11-11-2010 End: 11-11-2010 Annotation/Addendum Brittani Shepherd [facility] Start: 11-11-2010 End: 11-11-2010 Brittani Shepherd DO Work Phone: [facility] Start: 11-11-2010 End: 11-11-2010 Patient encounter Brittani Shepherd [facility] Start: 11-11-2010 End: 11-11-2010 Brittani Shepherd DO Work Phone: [facility] Start: 08-18-2010 End: 08-19-2010 Patient encounter Brittani Shepherd [facility] Start: 08-18-2010 End: 08-19-2010 Brittani Shepherd DO Work Phone: [facility] Start: 07-22-2010 End: 07-22-2010 Patient encounter Brittani Shepherd [facility] Start: 07-22-2010 End: 07-22-2010 Patient encounter status Brittani Shepherd DO Work Phone: [facility] Start: 07-22-2010 End: 07-22-2010 Brittani Shepherd DO Work Phone: [facility] Start: 07-16-2010 End: 07-16-2010 Patient encounter Brittani Shepherd [facility] Start: 07-16-2010 End: 07-16-2010 Brittani Shepherd DO Work Phone: [facility] Start: 01-13-2010 End: 01-13-2010 Patient encounter Brittani Shepherd [facility] Start: 01-13-2010 End: 01-13-2010 Brittani Shepherd DO Work Phone: [facility] Start: 11-25-2009 End: 11-25-2009 Office outpatient visit 15 minutes Brittani Shepherd [facility] Start: 10-15-2009 End: 10-15-2009 Patient encounter Brittani Shepherd [facility] Start: 10-15-2009 End: 10-15-2009 Brittani Shepherd DO Work Phone: [facility] Start: 09-10-2009 End: 09-10-2009 Patient encounter Brittani Shepherd [facility] Start: 09-10-2009 End: 09-10-2009 Brittani Shepherd DO Work Phone: [facility] Start: 06-18-2009 End: 06-18-2009 Annotation/Addendum Brittani Shepherd [facility] Start: 06-18-2009 End: 06-18-2009 Brittani Shepherd DO Work Phone: [facility] Start: 06-17-2009 End: 06-17-2009 Patient encounter Brittani Shepherd [facility] Start: 06-17-2009 End: 06-17-2009 Brittani Shepherd DO Work Phone: [facility] Start: 05-27-2009 End: 05-27-2009 Patient encounter Brittani Shepherd [facility] Start: 05-27-2009 End: 05-27-2009 Brittani Shepherd DO Work Phone: [facility] Start: 05-11-2009 End: 05-11-2009 Patient encounter Brittani Shepherd [facility] Start: 05-11-2009 End: 05-11-2009 Brittani Shepherd DO Work Phone: [facility] Start: 04-30-2009 End: 04-30-2009 Patient encounter Brittani Shepherd [facility] Start: 04-30-2009 End: 04-30-2009 Patient encounter status Brittani Shepherd DO Work Phone: [facility] Start: 04-30-2009 End: 04-30-2009 Brittani Shepherd DO Work Phone: [facility] Start: 04-22-2009 End: 04-22-2009 Office outpatient visit 40 minutes Brittani Shepherd [facility] Start: 03-09-2009 End: 03-09-2009 Office outpatient visit 15 minutes Brittani Shepherd [facility] Start: 02-19-2009 End: 02-19-2009 Office outpatient visit 15 minutes Brittani Shepherd [facility] Start: 06-05-2008 End: 06-05-2008 Patient encounter Brittani Shepherd [facility] Start: 06-05-2008 End: 06-05-2008 Patient encounter status Brittani Shepherd DO Work Phone: [facility] Start: 06-05-2008 End: 06-05-2008 Brittani Shepherd DO Work Phone: [facility] Start: 06-04-2008 End: 06-04-2008 Office outpatient visit 25 minutes Brittani Shepherd [facility] Start: 04-22-2008 End: 04-22-2008 Patient encounter Brittani Shepherd [facility] Start: 04-22-2008 End: 04-22-2008 Brittani Shepherd DO Work Phone: [facility] Start: 11-01-2007 End: 11-01-2007 Patient encounter Brittani Shepherd [facility] Start: 11-01-2007 End: 11-01-2007 Brittani Shepherd DO Work Phone: [facility] Start: 06-13-2007 End: 06-13-2007 Patient encounter Brittani Shepherd [facility] Start: 06-13-2007 End: 06-13-2007 Brittani Shepherd DO Work Phone: [facility] Start: 05-04-2007 End: 05-04-2007 Patient encounter Brittani Shepherd [facility] Start: 05-04-2007 End: 05-04-2007 Brittani Shepherd DO Work Phone: [facility] Start: 04-25-2007 End: 04-25-2007 Historical Summary Brittani Shepherd [facility] Start: 04-25-2007 End: 04-25-2007 Brittani Shepherd DO Work Phone: [facility] Start: 04-19-2007 End: 04-19-2007 Patient encounter Brittani Joao [facility] Start: 04-19-2007 End: 04-19-2007 Patient encounter status Brittani Joao DO Work Phone: [facility] Start: 04-19-2007 End: 04-19-2007 Brittani Shepherd DO Work Phone: [facility] Start: 04-13-2007 End: 04-13-2007 Office outpatient visit 25 minutes Brittani Shepherd [facility] Start: 09-29-2006 End: 09-29-2006 Office outpatient visit 10 minutes Brittani Shepherd [facility] Start: 06-06-2006 End: 06-06-2006 Office outpatient visit 25 minutes Brittani Shepherd [facility] Start: 05-17-2006 End: 05-17-2006 Office outpatient new 45 minutes Brittani Shepherd [facility] Patient encounter procedure Gretel Gravius [facility]; [facility] Work Phone: Patient encounter procedure Nataly Villarreal LAW OFFICE MANAGER [facility]; [facility] Work Phone: Patient encounter procedure Nataly Villarreal [facility]; [facility] Work Phone: Patient encounter procedure Crystal Cruz [facility]; [facility] Work Phone: Patient encounter procedure Gretel Melvin [facility]; [facility] Work Phone: Patient encounter procedure Rayne Emmanuel MA [facility]; [facility] Work Phone: Physical examination [facility]; [facility] Work Phone: Procedures Date Procedure Procedure Detail Performing Clinician Start: 09-25-2024 Prostate specific antigen measurement Dr. Brittani Shepherd DO Work Phone: Comment on above: [place] ECLIA methodology.According to the [employer] [employer], Serum PSAshould decrease and remain at undetectable levels afterradical prostatectomy. The AUA defines biochemicalrecurrence as an initial PSA value 0.2 ng/mL or greaterfollowed by a subsequent confirmatory PSA value 0.2 ng/mLor greater. Values obtained with different assay methods orkits cannot be used interchangeably. Results cannot beinterpreted as absolute evidence of the presence or absenceof malignant disease. Start: 08-20-2024 Urnls dip stick/tablet reagent auto microscopy Dr. Brittani Shepherd DO Work Phone: Start: 08-20-2024 Vitamin D, 25-hydroxy measurement Dr. Brittani Shepherd DO Work Phone: Comment on above: Vitamin D StatusDeficiency: <20 ng/mL (5 0nmol/L)Insufficiency: 20-30 ng/mL (50-75 nmol/L)Sufficiency: 30-100 ng/mL (75-250 nmol/L)Toxicity: >100 ng/mL (>250 nmol/L) Start: 06-25-2024 X-ray of chest, PA and lateral views Dr. Brittani Shepherd DO Work Phone: Start: 05-15-[address] Brittani Shepherd DO Work Phone: Start: 07-01-2021 End: 07-01-2021 Comments: See Note; NOTES: [facility] [address] [place] [address] OFFICE VISIT Date of Service: 07/01/21 MR#: [id number] Acct: [id number] Name: PRADEEP VARGAS Rep #: [id number] : 1965 Provider: DAWOOD thrasher Age/Sex: 55/M Location: [facility] Status: Signed Intake Vital Signs 07/01/21 14:09 07/01/21 14:13 Height 5 ft 6 in Weight: 194 lb BMI 31.3 BP 150/100 H 142/86 H Blood Pressure Location Lt brachial Lt brachial Position Sitting Sitting Respiration 15 Pulse 103 H Pulse Source Monitor Temp 97.0 F L Temp Source Temporal Pulse Oximetry (%) 98 Oxygen Delivery Method room air Intake Visit Reasons: SINUS CONGESTION Allergies No Known Allergies Allergy (Verified 07/01/21 14:10) Medications buspirone 15 mg PO DAILY 03/04/18 [History Confirmed 07/01/21] omeprazole 20 mg PO DAILY 03/04/18 [History Confirmed 07/01/21] venlafaxine 75 mg PO DAILY 03/04/18 [History Confirmed 07/01/21] meloxicam 15 mg tablet PO 30 Days #30 tab 09/24/18 [History Confirmed 07/01/21] metformin 500 mg tablet PO 90 Days #90 tab 09/24/18 [History Confirmed 07/01/21] prednisone 10 mg tablet PO 9 Days #18 tab 09/24/18 [History Confirmed 07/01/21] doxycycline monohydrate 100 mg PO BID #20 capsule 09/10/20 [Rx Confirmed 07/01/21] amoxicillin 500 mg capsule 1,000 mg PO BID 10 Days #40 cap 07/01/21 [Rx Confirmed 07/01/21] [facility] Medical History (Updated 07/01/21 @ 14:18 by Gustavo Guillen PA, PA) Acute bronchitis, unspecified Acute sinusitis, unspecified Anxiety COPD (chronic obstructive pulmonary disease) Depression GERD (gastroesophageal reflux disease) PTSD (post-traumatic stress disorder) Social History Smoking Status: Never smoker HPI HPI Details: PRADEEP VARGAS, is a 55 M who presents to the office today for 4-5 day h/o sinus congestion, pnd, cough, fever (tmax 101.6 on 06/29/2021)/ chills, myalgias, fatigue. Mucinex some assistance. Smoker. No cp/sob. No other c/o at this time. ROS Const Constitutional: No other (as above) Exam Const General: cooperative, healthy appearing, comfortable and no acute distress Nutritional Appearance: average body habitus and well nourished Orientation: alert, awake and oriented x3 HENMT Head: normal to inspection Ears: hearing grossly normal bilaterally, external ears normal, TM's normal bilaterally and EAC's normal Nose: external nose normal, nares normal, septum normal and no nasal discharge Face and sinus: normal facial exam, sinuses nontender and face symmetric Mouth: oral mucosae normal, lip normal, tongue normal and moist mucous membranes Throat: posterior oropharynx normal, tonsils normal, uvula midline and postnasal drainage (purulent) Eyes General: appearance normal, both eyes and all related structures Neck Neck: normal visual inspection, full ROM, no lymphadenopathy, no meningeal signs and supple Neck mass: No Thyroid: thyroid normal Lymphatic: no lymphadenopathy noted Chest Chest palpation inspection: normal inspection of the chest Resp Effort Inspection: normal respiratory effort, able to speak in complete sentences, symmetric chest movement and cough Quality of cough: wet (nonproductive) Auscultation: Bilateral: Clear to Auscultation Cardio Palpation: normal PMI Rate: tachycardic Rhythm: regular rhythm Heart Sounds: S1 normal, S2 normal, no gallops, no murmurs and no rubs Pulses: radial pulses present GI Inspection: normal to inspection Palpation: soft and no hepatosplenomegaly Skin General: no rashes or lesions noted Neuro General: patient alert, patient awake, patient oriented x3 and gait normal Cognition: normal cognition Speech: speech normal Gait: normal gait Motor: muscle tone normal throughout Sensory Exam: no sensory deficits noted Psych Appearance: grossly normal Mental Status: mental status grossly normal Mood: congruent mood Affect: normal affect Speech and Movement: speech and movement normal Attitude: cooperative Thought Process: normal Thought Content: normal Judgment: judgment good Coding Level of Care Code Off vis,new,level 3 Diagnoses Acute sinusitis, unspecified J01.90 Acute bronchitis, unspecified J20.9 Assessment and Plan Assessment and Plan (1) Acute sinusitis, unspecified: Status: Acute (2) Acute bronchitis, unspecified: Status: Acute Plan - Gustavo SEAY PA: Amoxil As prescribed today. Supportive measures as instructed today. Work excuse provided at patient request. Follow-up with PCP in 3 to 5 days should symptoms not improve, sooner should symptoms worsen or any other concerns develop. Patient states acknowledging understanding all the above. This note was generated with Cloudbot dictation software. It may contain incorrect words, spelling, and punctuation that were not noted in checking the note before signing. Plan Details Other Medications: New: amoxicillin 1,000 mg (2 x 500 mg) PO BID 10 days 40 caps 0RF 07/01/21 1423 <Electronically signed by Gustavo SEAY> Date Gustavo SEAY Cosigner Signature: Date (if applicable) CC: Brittani Shepherd DO Work Phone: Start: 09-10-2020 End: 09-10-2020 Comments: See Note; NOTES: [facility] Medical Records Department [address] [place] [address] Emergency Department Summary 09/10/20 MR#: [id number] Acct: [id number] Name: PRADEEP VARGAS Rep #: [id number] : 1965 55 From: Juan Farris MD PCP: Dr. Brittani Shepherd, Status:PRE ER Location: ED HPI History of Present Illness Chief Complaint: Bite Onset/Context/Timing Current Severity: Mild Maximum Severity: Mild Narrative Narrative: The patient presents to the emergency department with nonhealing wound on his left lateral calf. He states that he thinks he was bit by something about 2 weeks ago. He states it was very itchy. Since then, the margins have gotten red and he had some scant drainage. He denies any fevers or chills. He states he was trying to use peroxide and which loren with little improvement. He is not a diabetic. He has no history of immunosuppression. He is otherwise been in his normal state of health. [facility] Medical History (Updated 09/10/20 @ 12:05 by Ruth Ann Bob) Anxiety COPD (chronic obstructive pulmonary disease) Depression GERD (gastroesophageal reflux disease) PTSD (post-traumatic stress disorder) Home Medications buspirone 15 mg PO DAILY 03/04/18 [History Last Taken 03/04/18] omeprazole 20 mg PO DAILY 03/04/18 [History Last Taken 03/04/18] venlafaxine 75 mg PO DAILY 03/04/18 [History Last Taken 03/04/18] meloxicam 15 mg tablet PO 30 Days #30 tab 09/24/18 [History Last Taken Unknown] metformin 500 mg tablet PO 90 Days #90 tab 09/24/18 [History Last Taken Unknown] prednisone 10 mg tablet PO 9 Days #18 tab 09/24/18 [History Last Taken Unknown] doxycycline monohydrate 100 mg PO BID #20 capsule 09/10/20 [Rx Last Taken Unknown] Allergy/AdvReac Type Severity Reaction Status Date / Time No Known Allergies Allergy Verified 09/10/20 11:49 Social History Smoking Status: Never smoker ROS ROS ED Constitutional Constitutional ED: Denies chills or fever(s) Eyes Eyes: Denies blurry vision or change in vision ENT ENT ED: Denies ear pain or sore throat Cardiovascular Cardiovascular: Denies chest pain or palpitations Respiratory/Chest Respiratory/Chest: Denies cough, dyspnea or dyspnea on exertion Gastrointestinal Gastrointestinal: Denies abdominal pain, nausea or vomiting Genitourinary Genitourinary ED: Denies dysuria or urinary frequency Musculoskeletal Musculoskeletal: Denies arthralgias or myalgias Integumentary Denies rash Neurologic Neurologic: Denies headache(s) or paresthesias Psychiatric Psychiatric: Denies anxiety or depression Endocrine Endocrinology: Denies polydipsia or polyuria Allergic/Immunologic Allergic/Immunologic ED: Denies urticaria EXAM Physical Exam Const Vital Signs: 09/10/20 11:47 Temperature 96.1 F L Temperature Source Temporal Pulse Rate 89 Respiratory Rate 16 Blood Pressure 138/80 H Blood Pressure Mean 99 Pulse Ox 98 Oxygen Delivery Method Room Air Positive well nourished and well developed General Appearance ED: well developed HEENT Reports normocephalic, head/scalp atraumatic and moist mucous membranes Eyes PERRL and EOMs intact bilaterally Neck no lymphadenopathy and supple General: Negative for tenderness Chest Wall inspection of chest normal Resp normal respiratory effort and clear to auscultation bilaterally Cardio regular rate, regular rhythm and no murmurs GI normal to inspection, nondistended, normoactive bowel sounds Palpation: Negative for tender, guarding or rebound tenderness present Back/Spine no CVA tenderness Cervical Spine: Negative for cervical spine tenderness Thoracic Spine / Upper Back: Negative for thoracic spinal tenderness Extremity normal to inspection Extremity Narrative: Patient has a 2 cm ovoid area of cellulitis in the lateral calf. There is no significant streaking. There is no central fluctuance. His pulses are normal. General Extremety ED: Negative for tenderness Neuro oriented x3 and CN's II-XII intact bilaterally Neuro Narrative: No focal deficits appreciated. Sensorium / Orientation: alert Psych mental status grossly normal Skin no rashes or lesions noted, no wounds and skin turgor normal MDM MDM MDM Narrative Medical decision making narrative: The patient has an area of cellulitis. It is not significantly streaking. There is some central necrosis without evidence of fluctuance or retained foreign body. Patient has no history of venous depression. I am going to treat him with doxycycline. He was counseled to stop using the peroxide. He will be discharged home. Impression 1. Left calf cellulitis Discharge Plan Triage Chief Complaint: Bite ED Provider: Juan Farris Dx/Rx/DC Orders Instructions: ED Cellulitis Prescriptions: New doxycycline monohydrate 100 MG capsule 100 mg PO BID Qty: 20 RF: 0 No Action metformin 500 mg tablet PO 90 Days Qty: 90 RF: 0 prednisone 10 mg tablet PO 9 Days Qty: 18 RF: 0 meloxicam 15 mg tablet PO 30 Days Qty: 30 RF: 0 venlafaxine 75 MG capsule 75 mg PO DAILY RF: 0 buspirone 15 MG tablet 15 mg PO DAILY RF: 0 omeprazole 20 MG capsule,delayed release(DR/EC) 20 mg PO DAILY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 does require him to have to use a lot of torquing motions. Pt works at [employer] and has for many years. 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 Pt notes he has occasional sleep diff secondary to pain. Pt reports he was unable to perform his work durties and is off til the [...] tendon and the LHB tendon. No obvious deformity. ROM: R shoulder flex= 180, abd= 180, ER= 70, IR= WNL; L shoulder flex= 150, abd= 120, ER= 40, IR min hernandes. MMT: L shoulder flex and abd= 4-/5. All other B UE is 5/5 throughout. Special testing: Pos empty can, pos speeds. C/S repeated movements: No effect with protraction. Retraction provokes central spine pain - Goals Goal 1:: Decrease L shoulder pain x 50% to aid with IADL's Goal Time Frame: 4-6 Weeks Goal 2:: Increase L shoulder strength x 1 grade to aid with work duties Goal Time Frame: 4-6 Weeks Goal 3:: ncrease L shoulder abd and flex ROM x 20-30 degrees to aid with overhead aciti vity Goal Time Frame: 2-4 Weeks Goal 4:: I [...] To improve muscle performance and motor function Cryotherapy (ice pack, ice massage): Yes Ultrasound (thermal/non thermal): Yes For the Purpose of:: To decrease pain Thank you for the opportunity to evaluate your patient. For Medicare and Medicare HMO plans, please review the plan of care and approve it. It will need to be FAXED BACK to us at [phone] for Medicare purposes. Please let me know if there are questions or concerns regarding this plan of care. Physician Signature: Date: _ <Electronically signed by Maxwell Bhatti PT, ATC> 08/25/16 1838 CC: Brittani Shepherd DO [facility] Signed For Medicare only, by signing this I certify the plan of care. ___ Physicians Signature Date Brittani Shepherd Start: 06-05-2015 End: 06-05-2015 Chest PA and Lateral Comments: See Note; NOTES: [facility] Imaging Services [address] [place] [address] [place] 4d Chest PA and Lateral MR#: [id number] Acct: [id number] Name: SAMPRADEEP Rep #: [id number] : 1965 M 49 From: Bradley Dias MD PCP: Brittani Shepherd DO Status: REG CLI Study: Chest PA and Lateral Date of Exam: 06/05/15 Exam# [id number] Ordering Dr: Brittani Shepherd DO STUDY: X-RAY CHEST REASON FOR EXAM: Male, 49 years old. History of asthma. TECHNIQUE: PA and lateral views of the chest. COMPARISON: Comparison is made with prior examination dated April 16, 2012. FINDINGS: The lungs are [...] of the upper abdomen. IMPRESSION: Normal x-ray examination of the chest. Electronically Signed: Bradley Dias MD at 10:43 EST Tel [phone], Service support [phone], RAD/Chest PA and Lateral IMPRESSION: Normal x-ray examination of the chest. Electronically Signed: Bradley Dias MD at 10:43 EST Tel [phone], Service support [phone], CC: Brittani Shepherd DO Shoulder Sawyer: Signed Brittani Shepherd Work Phone: Start: 06-05-2015 End: 06-05-2015 Ecg routine ecg w/least 12 lds w/i&r [MEASUREMENTS ANALYSIS] Date of Test: 06/05/2015 09:32:10; Heart Rate: 64; ME Interval: 128; QRS: 104; QT Interval: 402; Corrected QT Interval (QTc): 409; P [place]: 45; QRS [place]: 60; T [place]: 51; Blood Pressure: 120/76 [ECG DIAGNOSTIC STATEMENTS] Date of Test: 06/05/2015 09:32:10; Summary: Sinus Rhythm WITHIN NORMAL LIMITS Brittani Shepherd Work Phone: Comment on above: nsr no acute chg Start: 06-05-2015 End: 06-05-2015 Spmtry w/vc expiratory alexx w/wo mxml vol vntj _ Brittani Shepherd Work Phone: Start: 08-29-2013 End: 08-29-2013 PT Discharge Summary Comments: See Note; NOTES: [facility] [address] [place] [address]. [address] [place] [address] Fax REHABILITATION SERVICES DISCHARGE SUMMARY MR#: [id number] Acct: [id number] Name: PRADEEP VARGAS Rep #: [id number] : 1965 48 From: Rodolfo Starr Referring Dr.: Brittani Shepherd DO Status: PRE RCR Eval Date: Discharge Date: DATE OF SERVICE: The patient by the name of Pradeep Vargas was seen in our clinic with a diagnosis of low back muscle spasm. The patient received initial evaluation only. We educated the patient on his condition. Modalities provided. We educated on Ben exercises. We attempted to call the patient, but he did not return to physical therapy after his first initial consultation after he received therapy for continuation of therapy. He is discharged from our care. Otherwise, once again, thank you for this referral. Rodolfo Starr, PT T: ADITYA JOB: [id number] <Electronically signed by Rodolfo Starr > 08/29/13 1412 CC: Signed Scarlett Joseph Fast Work Phone: Start: 07-30-2013 End: 07-30-2013 Abdomen/Pelvis without Cont Comments: See Note; NOTES: [facility] Imaging Services [address] [place] [address] CAT Scan Report MR#: [id number] Acct: [id number] Name: PRADEEP VARGAS Rep #: [id number] : 1965 M 48 From: Jimmie Garcia MD PCP: Brittani Shepherd DO Status: REG CLI Study: Abdomen/Pelvis without Cont Date of Exam: 07/30/13 Exam# [id number] Ordering Dr: Brittani Shepherd DO STUDY: CT ABDOMEN AND PELVIS WITHOUT CONTRAST REASON FOR EXAM: Male, 48 years old. Back and flank pain RADIATION DOSAGE (If Supplied By Facility): CTDIvol = ( ) mGy, DLP = ( ) mGycm TECHNIQUE: Transaxial images were obtained from the dome of the diaphragm to the symphysis pubis without oral contrast, and without intravenous contrast. Sagittal and coronal images were reconstructed. COMPARISON: None. FINDINGS: The visualized lung bases are unremarkable. The visualized portions of the heart are within normal limits. Normal liver. Normal gallbladder and extrahepatic biliary system. Normal spleen. Normal pancreas. Normal bilateral adrenal glands. Normal right kidney. Normal left kidney. Normal visualized stomach. There is an ileus of the small intestine. Normal colon. The appendix is visualized and [...] MD at 10:27 EDT , Service support [phone], CC: Brittani Shepherd DO Shoulder Sawyer: Signed Brittani Shepherd Work Phone: Start: 07-29-2013 End: 07-29-2013 Inital Evaluation - PT Comments: See Note; NOTES: [facility] [address] [place] [address]. [address] [place], [place] [address] Fax REHABILITATION SERVICES INITIAL EVALUATION MR#: [id number] Acct: [id number] Name: PRADEEP VARGAS Rep #: [id number] : 1965 48 From: Rodolfo Starr Referring .: Brittani Shepherd DO Status: REG R Insurance: [facility] [facility] Date: DATE OF SERVICE: REFERRING PHYSICIAN: Dr. Brittani Shepherd. SUBJECTIVE: This patient by the name of Pradeep Vargas who was born on 1965 was referred to physical therapy with diagnoses of muscle spasm and low [...] today. He denies numbness/tingling. Sitting makes it worse. Bending makes it worse. Walking makes it worse. Standing makes it somewhat better. He sleeps on his belly, but it will disturb his sleep, on a firm mattress. He has no treatments. History of muscle spasms, straining may increase his back pain. Gait is normal. Bladder is normal. No abnormal night pain, unexplained weight loss, major accidents. No x -rays were done. No medication was prescribed, except for Valium and some anti- inflammatory medication. Goals are to have no more back pain and get stronger. PAST MEDICAL HISTORY: Elevated cholesterol. SOCIAL HISTORY: . 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 OBJECTIVE: OBSERVATION OF POSTURE: Sits with reduced lordosis, rounded shoulders. PALPATION: Some tenderness around right lumbar paraspinals, compared to left, multifidus, as well as, rectus spina muscle group. NEUROLOGICAL: Denies numbness/tingling. Myotomes are intact. Reflexes symmetrically elicited L3-L4, L4-L5, L5-S1. FLEXIBILITY: Hamstrings minimal loss. Piriformis minimal loss. STRENGTH: Lower extremities, quadriceps, hamstrings, dorsiflexors, plantar flexors, great toe extensors, hip flexors are 5/5. Myotomes are equally intact. Movement loss of lumbar spine, flexion minimal loss, extension within functional limits, side glides minimal loss. PRETEST PAIN: Symmtrical lumbosacral pain or lumbar pain. Flexion standing increases symptoms slightly worse. Extension in standing decreased [...] LIST: 1. Decreased home exercise program. 2. Decreased posture body mechanics. 3. Increased low back pain. 4. Limitation of normal functional activities, standing, walking, job demands, especially ____ in a forward position. 5. Decreased prophylaxis. GOALS: 1. The patient will be independent with home exercise program to self-manage symptoms. 2. The patient will be independent with posture body mechanics with all lifting techniques. 3. The patient to reduce low back pain by at least 50 percent or greater to improve function. PLAN: Plan of care was reviewed with the patient. We discussed with the patient basic anatomy of the lumbar spine, mechanism of pain. We discussed with the patient the cumulative effect of flexion and how it compromises the back. We educated the patient to perform repeat extension in lying or standing back extensions x10 repetitions every hour to monitor symptoms. Then, the patient received stimulation moist hot pack x15 minutes. Plan is to see this patient twice a week for 4 weeks focusing on home exercise program, posture exercises, dynamic lumbar stabilization, abdominal back strengthening, Ben exercise, manual therapy, modalities, and patient education. Rodolfo Starr PT T: NTS JOB: [id number] <Electronically signed by Rodolfo Starr > 07/29/13 1552 CC: Signed For Medicare only, by signing this I certify the plan of care. ___ Physicians Signature Date Scarlett Joseph Genaro Work Phone: Start: 07-29-2013 End: 07-29-2013 L/S Spine Min 4 Views Comments: See Note; NOTES: [facility] Imaging Services [address] [place] [address] Radiology Report MR#: [id number] Acct: [id number] Name: PRADEPE VARGAS Rep #: [id number] : 1965 M 48 From: Jimmie Garcia MD PCP: Brittani Shepherd DO Status: REG CLI Study: L/S Spine Min 4 Views Date of Exam: 07/29/13 Exam# [id number] Ordering Dr: Janneth Christensen STUDY: X-RAY - LUMBAR SPINE REASON FOR EXAM: Male, 48 years old. Low back pain TECHNIQUE: 5 view(s) of the lumbar spine were obtained. COMPARISON: None FINDINGS: Normal lumbar lordosis. There is no substantial scoliosis. There is a normal alignment of the vertebrae. Normal vertebral bodies and endplates. Normal disc space heights. There is no demonstrated fracture. Evidence of limbus vertebra at L3-L4 and L5. The soft tissue structures are unremarkable. IMPRESSION: No acute findings Electronically Signed: Brandan Garcia MD at 10:09 EDT , Service support [phone], RAD/L/S Spine Min 4 Views IMPRESSION: No acute findings Electronically Signed: Brandan Garcia MD at 10:09 EDT , Service support [phone], CC: Janneth Christensen; Brittani Shepherd DO Shoulder Sawyer: Signed Janneth Christensen Work Phone: Dental sx Melina Hook Comment on above: 02-14 Dental sx Valeri Suarez Comment on above: 02-14 Dental sx Aide Elder Comment on above: 02-14 Dental sx Gretel Gravius Comment on above: 02-14 Dental sx Gretel Gravius Comment on above: 02-14 vasectomy in 2005 Melina miranda vasectomy in 2005 Valeri Guillory klear vasectomy in 2005 Aide Miller ullu vasectomy in 2005 Gretel Gra vius vasectomy in 2005 Gretel Gra vius Nataly Villarreal LP N Nataly Villarreal LP N [facility] Gretel Gravius NURSE RESEARCHER Rayne Emmanuel MA Plan of Treatment Date Care Activity Detail Author Start: 12-10-2023 COVID-19 Vaccine () COVID-19 Vaccine () [facility] Start: 12-10-2023 Influenza vaccination Influenza Vaccine (#1) [facility] Start: 08-22-2022 Procedure Education [facility] Work Phone: Start: 08-22-2022 Provider Instructions for Treatment [facility]; [facility] Work Phone: Start: 08-22-2022 Assay of prostate specific antigen total [facility]; [facility] Work Phone: Start: 08-22-2022 25 hydroxy includes fractions if performed [facility]; [facility] Work Phone: Start: 08-22-2022 Urnls dip stick/tablet reagent auto microscopy [facility]; [facility] Work Phone: Start: 08-22-2022 Urine albumin quantitative [facility]; [facility] Work Phone: Start: 08-22-2022 Comprehensive metabolic panel [facility]; [facility] Work Phone: Start: 08-22-2022 Blood count complete auto&auto difrntl wbc [facility]; [facility] Work Phone: Start: 08-22-2022 Lipid panel [facility]; [facility] Work Phone: Start: 08-22-2022 Assay of thyroid stimulating hormone tsh [facility]; [facility] Work Phone: Start: 11-08-2021 Hepatic function panel [facility] Work Phone: Start: 11-08-2021 Lipid panel [facility]; [facility] Work Phone: Start: 11-08-2021 Procedure Education [facility]; [facility] Work Phone: Start: 11-08-2021 Provider Instructions for Treatment [facility]; [facility] Work Phone: Start: 08-02-2021 Procedure Education [facility]; [facility] Work Phone: Start: 08-02-2021 Provider Instructions for Treatment [facility]; [facility] Work Phone: Start: 08-02-2021 Assay of prostate specific antigen total [facility]; [facility] Work Phone: Start: 08-02-2021 25 hydroxy includes fractions if performed [facility]; [facility] Work Phone: Start: 08-02-2021 Assay of thyroid stimulating hormone tsh [facility]; [facility] Work Phone: Start: 08-02-2021 Urnls dip stick/tablet reagent auto microscopy [facility]; [facility] Work Phone: Start: 08-02-2021 Urine albumin quantitative [facility]; [facility] Work Phone: Start: 08-02-2021 Comprehensive metabolic panel [facility]; [facility] Work Phone: Start: 08-02-2021 Lipid panel [facility]; [facility] Work Phone: Start: 08-02-2021 Blood count complete auto&auto difrntl wbc [facility]; [facility] Work Phone: Start: 08-07-2020 Procedure Education [facility]; [facility] Work Phone: Start: 08-07-2020 Provider Instructions for Treatment [facility]; [facility] Work Phone: Start: 07-29-2020 Assay of prostate specific antigen total [facility]; [facility] Work Phone: Start: 07-29-2020 25 hydroxy includes fractions if performed [facility]; [facility] Work Phone: Start: 07-29-2020 Urnls dip stick/tablet reagent auto microscopy [facility]; [facility] Work Phone: Start: 07-29-2020 Urine albumin quantitative [facility]; [facility] Work Phone: Start: 07-29-2020 Comprehensive metabolic panel [facility]; [facility] Work Phone: Start: 07-29-2020 Blood count complete auto&auto difrntl wbc [facility]; [facility] Work Phone: Start: 07-29-2020 Assay of thyroid stimulating hormone tsh [facility]; [facility] Work Phone: Start: 07-29-2020 Lipid panel [facility]; [facility] Work Phone: Start: 07-29-2020 Procedure Education [facility]; [facility] Work Phone: Start: 07-29-2020 Provider Instructions for Treatment [facility]; [facility] Work Phone: Start: 07-29-2020 Hemoglobin glycosylated a1c [facility]; [facility] Work Phone: Start: 07-29-2020 Gluc bld gluc mntr dev cleared fda spec home use [facility]; [facility] Work Phone: Start: 06-24-2019 Assay of thyroid stimulating hormone tsh [facility]; [facility] Work Phone: Start: 06-24-2019 TSH Qn TSH (78753) [facility] Work Phone: Start: 06-24-2019 Assay of free thyroxine [facility] Work Phone: Start: 06-24-2019 Free T4 [Mass/Vol] T4, FREE (THYROXINE) (31163) [facility] Work Phone: Start: 06-24-2019 Assay of triiodothyronine t3 free [facility]; [facility] Work Phone: Start: 06-24-2019 Free T3 [Mass/Vol] T3, FREE (TRIDOTHYRONINE) (79265) [facility] Work Phone: Start: 06-24-2019 Procedure Education [facility] Work Phone: Start: 06-24-2019 Provider Instructions for Treatment [facility] Work Phone: Start: 06-19-2019 Procedure Education [facility] Work Phone: Start: 06-19-2019 Provider Instructions for Treatment [facility] Work Phone: Start: 04-23-2019 Procedure Education [facility] Work Phone: Start: 04-23-2019 Provider Instructions for Treatment [facility] Work Phone: Start: 04-23-2019 Urnls dip stick/tablet rgnt non-auto w/o micrscp [facility] Work Phone: Start: 09-24-2018 Procedure Education [facility] Work Phone: Start: 09-24-2018 Provider Instructions for Treatment [facility] Work Phone: Start: 09-21-2018 Procedure Education [facility] Work Phone: Start: 09-21-2018 Comprehensive metabolic panel Metabolic Panel, Comprehensive (12260) [facility] Work Phone: Start: 09-21-2018 Prothrombin time (PT) Coag time (PPP) PT (PROTHROMBIN TIME) (90453) [facility] Work Phone: Start: 03-20-2018 Procedure Education [facility] Work Phone: Start: 03-20-2018 Provider Instructions for Treatment [facility] Work Phone: Start: 01-12-2018 Patient Education [facility] Work Phone: Start: 01-12-2018 Procedure Education [facility] Work Phone: Start: 01-12-2018 Provider Instructions for Treatment [facility] Work Phone: Start: 01-12-2018 Blood count complete automated CBC & PLATELETS (AUTO) (93033) [facility] Work Phone: Start: 01-12-2018 Protein mass conc PSA (PROSTATE SPECIFIC ANTIGEN) (V76.44) [facility] Work Phone: Start: 07-20-2017 Zoster Vaccines (1 of 2) Zoster Vaccines (1 of 2) [facility] Start: 06-23-2017 Procedure Education [facility] Work Phone: Start: 06-23-2017 Provider Instructions for Treatment [facility] Work Phone: Start: 05-01-2017 Provider Instructions for Treatment [facility] Work Phone: Start: 11-30-2016 Provider Instructions for Treatment [facility] Work Phone: Start: 08-29-2016 Provider Instructions for Treatment [facility] Work Phone: Start: 08-24-2016 Procedure Education [facility] Work Phone: Start: 04-26-2016 Patient Education [facility] Work Phone: Start: 04-26-2016 Procedure Education [facility] Work Phone: Start: 01-22-2016 Procedure Education [facility] Work Phone: Start: 01-22-2016 Provider Instructions for Treatment [facility] Work Phone: Start: 01-22-2016 25 hydroxy includes fractions if performed [facility] Work Phone: Start: 01-22-2016 Assay of thyroid stimulating hormone tsh [facility]; [facility] Work Phone: Start: 01-22-2016 Thyrotropin Qn TSH (THYROID STIMULATING HORMONE) (46369) [facility] Work Phone: Start: 01-22-2016 Urine albumin quantitative [facility] Work Phone: Start: 01-22-2016 Comprehensive metabolic panel [facility] Work Phone: Start: 01-22-2016 Lipid panel [facility] Work Phone: Start: 01-22-2016 Blood count complete auto&auto difrntl wbc [facility] Work Phone: Start: 01-22-2016 Hemoglobin A1c/Hemoglobin.total mass fraction (Bld) HGB A1C (18148) [facility] Work Phone: Start: 01-22-2016 Hemoglobin glycosylated a1c [facility]; [facility] Work Phone: Start: 12-04-2015 Provider Instructions for Treatment [facility] Work Phone: Start: 11-23-2015 Provider Instructions for Treatment [facility] Work Phone: Start: 06-05-2015 Provider Instructions for Treatment [facility] Work Phone: Start: 02-25-2015 Provider Instructions for Treatment [facility] Work Phone: Start: 02-23-2015 Provider Instructions for Treatment [facility] Work Phone: Start: 07-30-2014 Provider Instructions for Treatment [facility] Work Phone: Start: 05-30-2014 Procedure Education [facility] Work Phone: Start: 05-30-2014 Provider Instructions for Treatment [facility] Work Phone: Start: 03-03-2014 Provider Instructions for Treatment [facility] Work Phone: Start: 08-14-2013 Provider Instructions for Treatment [facility] Work Phone: Start: 07-31-2013 Provider Instructions for Treatment [facility] Work Phone: Start: 07-29-2013 Provider Instructions for Treatment [facility] Work Phone: Start: 06-18-2013 Patient Education [facility] Work Phone: Start: 06-18-2013 Provider Instructions for Treatment [facility] Work Phone: Start: 02-08-2013 Iaadiadoo influenza [facility] Work Phone: Start: 02-08-2013 [place]oo streptococcus group a [facility]; [facility] Work Phone: Start: 02-08-2013 S. pyogenes Ag IA Ql (Unsp spec) Rapid Strep Test, Office (61839) [facility] Work Phone: Start: 09-20-2012 Provider Instructions for Treatment [facility] Work Phone: Start: 04-17-2012 Provider Instructions for Treatment [facility] Work Phone: Start: 04-02-2012 Hepatic function panel [facility] Work Phone: Start: 04-02-2012 Lipid panel [facility] Work Phone: Start: 02-28-2012 Provider Instructions for Treatment [facility] Work Phone: Start: 12-08-2011 Patient Education [facility] Work Phone: Start: 12-08-2011 Provider Instructions for Treatment [facility] Work Phone: Start: 08-08-2011 Provider Instructions for Treatment [facility] Work Phone: Start: 02-18-2011 Assay of thyroid stimulating hormone tsh [facility]; [facility] Work Phone: Start: 02-18-2011 Thyrotropin Qn TSH (35576) [facility] Work Phone: Start: 02-18-2011 Hepatic function panel [facility] Work Phone: Start: 11-11-2010 Provider Instructions for Treatment [facility] Work Phone: Start: 08-18-2010 Provider Instructions for Treatment [facility] Work Phone: Start: 07-16-2010 Provider Instructions for Treatment [facility] Work Phone: Start: 01-13-2010 Provider Instructions for Treatment [facility] Work Phone: Start: 10-15-2009 Provider Instructions for Treatment [facility] Work Phone: Start: 09-10-2009 Provider Instructions for Treatment [facility] Work Phone: Start: 09-10-2009 Hepatic function panel [facility] Work Phone: Start: 09-10-2009 Lipid panel [facility] Work Phone: Start: 05-27-2009 Provider Instructions for Treatment [facility] Work Phone: Start: 05-27-2009 Hepatic function panel [facility] Work Phone: Start: 05-27-2009 Immunoassay analyte qual/semiqual multiple step [facility] Work Phone: Start: 05-27-2009 Assay of [id number] [facility]; [facility] Work Phone: Start: 05-27-2009 Transferrin mass conc TRANSFERRIN (94244) [facility] Work Phone: Start: 05-27-2009 Hepatitis b core antibody hbcab total [facility] Work Phone: Start: 05-27-2009 Amylase enzyme act/vol GGT (GAMMA GLUTAMYLTRANSFERASE) (38280) [facility] Work Phone: Start: 05-27-2009 Assay of glutamyltrase gamma [facility]; [facility] Work Phone: Start: 05-27-2009 Gamma glutamyl transferase enzyme act/vol GGT (GAMMA GLUTAMYLTRANSFERASE) (54933) [facility] Work Phone: Start: 05-27-2009 Assay of ferritin [facility] Work Phone: Start: 05-27-2009 Ferritin mass conc FERRITIN (48065) [facility] Work Phone: Start: 05-27-2009 Antibody geraldine-henry eb virus early antigen ea [facility] Work Phone: Start: 05-27-2009 Antibody cytomegalovirus cmv igm [facility] Work Phone: Start: 05-27-2009 Fluorescent nonnfct agt antb screen ea antibody [facility] Work Phone: Start: 05-27-2009 Microsomal antibodies each [facility] Work Phone: Start: 05-11-2009 Provider Instructions for Treatment [facility] Work Phone: Start: 05-11-2009 Hepatic function panel [facility] Work Phone: Comment on above: do inone month Start: 04-22-2009 Provider Instructions for Treatment [facility] Work Phone: Start: 04-22-2009 Cyclic citrullinated peptide antibody [facility] Work Phone: Start: 04-22-2009 Comprehensive metabolic panel [facility] Work Phone: Start: 04-22-2009 Assay of thyroid stimulating hormone tsh [facility]; [facility] Work Phone: Start: 04-22-2009 Thyrotropin Qn TSH (99094) [facility] Work Phone: Start: 04-22-2009 Lipid panel [facility] Work Phone: Start: 04-22-2009 Blood count manual cell count each [facility] Work Phone: Start: 02-19-2009 Provider Instructions for Treatment [facility] Work Phone: Start: 06-05-2008 Provider Instructions for Treatment [facility] Work Phone: Start: 06-05-2008 Assay of thyroid stimulating hormone tsh [facility]; [facility] Work Phone: Start: 06-05-2008 Thyrotropin Qn TSH (48933) [facility] Work Phone: Start: 06-05-2008 Urine albumin quantitative [facility] Work Phone: Start: 06-05-2008 Blood count manual cell count each [facility] Work Phone: Start: 06-05-2008 Comprehensive metabolic panel [facility] Work Phone: Start: 04-22-2008 Provider Instructions for Treatment [facility] Work Phone: Start: 04-22-2008 Comprehensive metabolic panel [facility] Work Phone: Start: 04-22-2008 Lipid panel [facility] Work Phone: Start: 11-01-2007 Provider Instructions for Treatment [facility] Work Phone: Start: 06-13-2007 Provider Instructions for Treatment [facility] Work Phone: Start: 05-04-2007 Patient Education [facility] Work Phone: Start: 05-04-2007 Provider Instructions for Treatment [facility] Work Phone: Start: 05-04-2007 Cul bact xcpt urine blood/stool aerobic isol [facility] Work Phone: Start: 04-19-2007 Comprehensive metabolic panel [facility] Work Phone: Start: 04-19-2007 Lipid panel [facility] Work Phone: Start: 04-19-2007 Blood count manual cell count each [facility] Work Phone: Start: 04-13-2007 Provider Instructions for Treatment [facility] Work Phone: Start: 09-29-2006 Glucose mass conc Glucose, PP/2 Hour (85191) [facility] Work Phone: Start: 09-29-2006 Glucose quantitative blood xcpt reagent strip [facility] Work Phone: Start: 06-06-2006 Hepatic function panel [facility] Work Phone: Comment on above: DO IN ONE MONTH Start: 06-06-2006 Lipid panel [facility] Work Phone: Comment on above: DO IN 1 MONTH Start: 05-17-2006 Provider Instructions for Treatment [facility] Work Phone: Start: 05-17-2006 Comprehensive metabolic panel [facility] Work Phone: Start: 05-17-2006 Lipid panel [facility] Work Phone: Start: 07-20-1989 DTaP/Tdap/Td Vaccines (1 - Tdap) DTaP/Tdap/Td Vaccines (1 - Tdap) [facility] Start: 07-20-1986 Hepatitis B Vaccines (1 of 3 - 19+ 3-dose series) Hepatitis B Vaccines (1 of 3 - 19+ 3-dose series) [facility] Start: 07-20-1986 Pneumococcal vaccination Pneumococcal Vaccine (1 of 2 - PCV) [facility] Start: 07-20-1985 Hepatitis C screening Hepatitis C Screening [facility] Start: 07-20-1968 MMR Vaccines (1 of 1 - Standard series) MMR Vaccines (1 of 1 - Standard series) [facility] Start: 1967 HIV screening HIV Screening [facility] Start: 1967 Lipid panel Lipid Panel [facility] Start: 1967 Screening for malignant neoplasm of colon [facility] Start: 1967 Thyroid stimulating hormone measurement TSH Level [facility] Start: 1967 Yearly Adult Physical Yearly Adult Physical [facility] Work Phone: [facility] Work Phone: [facility] Work Phone: [facility] Work Phone: [facility] Work Phone[facility] Work Phone[facility] Work Phone[facility] Work Phone: [facility] Work Phone: [facility] Work Phone: [facility] Work Phone: [facility] Work Phone: [facility] Work Phone: [facility] Work Phone: [facility] Work Phone: [facility] Work Phone: [facility] Work Phone: [facility] Work Phone: [facility] Work Phone: [facility] Work Phone[facility] Work Phone: [facility] Work Phone: [facility] Work Phone: [facility] Work Phone: [facility] Work Phone: [facility] Work Phone: [facility] Phone: [facility] Work Phone[facility] Work Phone: [facility] Work Phone: [facility] Work Phone: [facility] Work Phone: [facility] Work Phone: [facility] Work Phone: [facility] Work Phone[facility] Work Phone[facility] Work Phone: [facility] Work Phone: [facility] Work Phone: [facility] Work Phone: [facility] Work Phone: Immunizations Immunization Date Immunization Notes Care Provider [facility] 03-04-2018 tetanus toxoid, redu azucena diphtheria toxoid, and acellular pertussis vaccine, adsorbed Dr. Brittani Shepherd DO Work Phone: [facility] 02-25-2015 influenza virus vaccine, unspecified formulation Toribio Moe MD Work Phone: [facility] Work Phone: Payers Date Payer Category Payer Self-pay 2023 [employer] Managed Care [facility] [id number] 2023 Unknown [id number] 2021 Unknown [id number] 2016 Private Health Insurance [id number] 2014 Unknown [id number] 2012 Private Health Insurance [id number] 2012 Private Health Insurance [id number] 2010 Unknown [id number] 1967 Unknown [id number] 1967 Unknown [id number] Private Health Insurance [facility] [id number] Private Health Insurance [facility] [id number] Unknown Unknown [id number] Unknown [id number] Unknown [id number] Unknown [id number] Unknown [id number] Unknown [id number] Unknown [id number] Unknown [id number] Social History Date Type Detail Facility Start: 06-11-2024 Caffeine Use Former smoker [facility] Work Phone: Comment on above: 6-8 glasses a day Full-time, [employer] Inactive , Lives with spouse quit 3 year ago, con tinues not to smoke 8.4.11 Tobacco use: Former smoker. [facility] Work Phone: Comment on above: 08/08/11 Former smoker. [facility]; [facility] Work Phone: Start: 06-11-2024 Tobacco smoking status NHIS Smokes tobacco daily [facility] Work Phone: History of tobacco use Cigarette Smoker [facility] Work Phone: Start: 06-11-2024 Tobacco use and exposure Smokeless tobacco non-user [facility] Work Phone: Start: 06-11-[address] [facility] Work Phone: Start: 1965 Sex assigned at Not on file [facility] Work Phone: Start: 06-01-2024 End: 06-11-2024 Exposure to SARS-CoV-2 (event) Not sure [facility] Start: 06-25-2024 Tobacco smoking status NHIS Never smoked tobacco (finding) [facility] Start: 1965 Sex Assigned At Male [facility] Clinical Notes 06-11-2024 Toribio Moe MD - 06/11/2024 1:00 PM EST Note Date & Type Note Facility 06-11-2024 History of Present illness Narrative CC: hole into sinus Consulted by: dr otto HPI: had a cracked tooth Tooth was removed and 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 This ultimately led to significant issues with his dentition including recent in the last 5 years replacement of the anterior construct Past medical history:+ T 2 DM, no HTN Past surgical history: nasal cyst surgery Social history: + smoking 1ppd for >30 yrs (stppped once for 4.5 years) , weekly drinking occasional Family history: Reviewed and not relevant to the presenting complaint Current medications: Reviewed as noted in current orders Allergies: Reviewed and as noted in current orders ROS: All other systems have been reviewed and are negative for complaint. I personally reviewed the intake form that was scanned in today PE: CONSTITUTIONAL: Vitals -reviewed from intake field, well developed, well nourished. VOICE: RESPIRATION: Breathing comfortably, no stridor. CV: No clubbing/cyanosis/edema in hands. EYES: EOM Intact, sclera normal. NEURO: Alert and oriented times 3, Cranial nerves II-XII intact and symmetric bilaterally. HEAD AND FACE: Symmetric facial features, no masses or lesions, sinuses nontender to palpation. SALIVARY GLANDS: Parotid and submandibular glands normal bilaterally. EARS: Normal external ears, external auditory canals, and TMs to otoscopy, normal hearing to whispered voice. NOSE: External nose midline, anterior rhinoscopy is normal with limited visualization to the anterior aspect of the inferior turbinates. No lesions noted. 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 Mucosa appears clean and moist NECK/LYMPH: No LAD, no thyroid masses. Trachea palpably midline SKIN: Neck skin is without scar or injury PSYCH: Alert and oriented with appropriate mood and affect Radiology reviewed: I personally reviewed the CT scan with the patient showing what appears to be a large cystic mass involving the anterior dentition with tooth root being intermediate approximation and into the cyst cavity this involves the anterior lateral maxilla in communication with the fistula posteriorly Nasal endoscopy: After informed verbal consent nasal cavity was anesthetized with lidocaine Silas-Synephrine mixture after suitable time had passed flexible nasal endoscopy carried out showing crisp nasal mucosa no lesions no obstructive processes middle and inferior turbinates intact nasal choanae patent septum intact scope removed patient tolerated procedure well Scope was then placed transorally through the fistula up into the sinus cavity, mildly edematous mucosa noted some thickened mucus scope was removed A/P: Patient with oral antral fistula however with more significant cystic mass anteriorly that is adjacent to the anterior dentition This would need to be addressed as he does have a construct on the teeth that appear to be an approximation and into the mass itself Have suggested working with an oral surgeon familiar with these types of processes as in general periapical cyst can be treated with a limited curettage but given that this spans the entire anterior aspect of the maxilla and involves multiple teeth of which there is a current dental construct would be prudent to have a oral surgery evaluation This is involving teeth that was significantly traumatized while a and he will pursue whether this is something that is a covered benefit through previously being in the as conceivably this can be traumatically induced As far as the small fistula posteriorly in isolation this could be treated with limited debridement and/or buccal fat graft however must be taken in context of the larger anterior problem Whether this is taking care of with maxillectomy or more likely extraction of the construct as well as the involved teeth and a curettage at the discretion of oral surgery Can consider a combination procedure Patient will see Dr. Floyd and we will also explore veterans benefits documented in this encounter [facility] Work Phone: Evaluation note Diagnosis Oroantral fistula- Primary Chronic maxillary sinusitis Maxillary sinus mass Swelling, mass, or lump in head and neck documented in this encounter [facility] Work Phone: Evaluation noteNo assessment information available [facility] Work Phone: Instructions* Name Dates Details How to Access Health Informa tion Online using Patient Portal and [employer] Apps Indication:Smoker Start:29-Jul-2020 Instruction Type:Patient Education Patient Instructions Indication:Smoker Start:29-Jul-2020 Instruction Type:Provider Instructions for Treatment How to access health informa tion online Indication:Smoker Start:24-Jun-2019 Instruction Type:Patient Education How to access health informa tion online - Detail Indication:Smoker Start:24-Jun-2019 Instruction Type:Patient Education Patient Instructions Indication:Smoker Start:24-Jun-2019 Instruction Type:Provider Instructions for Treatment How to access health informa tion online Indication:Smoker Start:19-Jun-2019 Instruction Type:Patient Education How to access health informa tion online - Detail Indication:Smoker Start:19-Jun-2019 Instruction Type:Patient Education Patient Instructions Indication:Smoker Start:19-Jun-2019 Instruction Type:Provider Instructions for Treatment How to access health informa tion online - Detail Indication:Non-smoker Start:23-Apr-2019 Instruction Type:Patient Education How to access health informa tion online Indication:Non-smoker Start:23-Apr-2019 Instruction Type:Patient Education Patient Instructions Indication:Non-smoker Start:23-Apr-2019 Instruction Type:Provider Instructions for Treatment How to access health informa tion online Indication:Non-smoker Start:24-Sep-2018 Instruction Type:Patient Education How to access health informa tion online - Detail Indication:Non-smoker Start:24-Sep-2018 Instruction Type:Patient Education Patient Instructions Indication:Non-smoker Start:24-Sep-2018 Instruction Type:Provider Instructions for Treatment How to access health informa tion online Indication:Smoker Start:21-Sep-2018 Instruction Type:Patient Education How to access health informa tion online - Detail Indication:Smoker Start:21-Sep-2018 Instruction Type:Patient Education Patient Instructions Indication:Smoker Start:21-Sep-2018 Instruction Type:Provider Instructions for Treatment How to access health informa tion online Indication:Smoker Start:20-Mar-2018 Instruction Type:Patient Education How to access health informa tion online - Detail Indication:Smoker Start:20-Mar-2018 Instruction Type:Patient Education Patient Instructions Indication:Body mass index 28.0-28.9, adult Start:20-Mar-2018 Instruction Type:Provider Instructions for Treatment How to access health informa tion online Indication:Need for prophylactic vaccination and inoculation against influenza (Renamed from Need for immunization against influenza) Start:12-Jan-2018 Instruction Type:Patient Education How to access health informa tion online - Detail Indication:Need for prophylactic vaccination and inoculation against influenza (Renamed from Need for immunization against influenza) Start:12-Jan-2018 Instruction Type:Patient Education Patient Instructions Indication:Need for prophylactic vaccination and inoculation against influenza (Renamed from Need for immunization against influenza) Start:12-Jan-2018 Instruction Type:Provider Instructions for Treatment How to access health informa tion online Indication:Smoker Start:15-Nov-2017 Instruction Type:Patient Education How to access health informa tion online - Detail Indication:Smoker Start:15-Nov-2017 Instruction Type:Patient Education Patient Instructions Indication:Smoker Start:15-Nov-2017 Instruction Type:Provider Instructions for Treatment How to access health informa tion online Indication:Rash of hands Start:23-Jun-2017 Instruction Type:Patient Education How to access health informa tion online - Detail Indication:Rash of hands Start:23-Jun-2017 Instruction Type:Patient Education Patient Instructions Indication:Rash of hands Start:23-Jun-2017 Instruction Type:Provider Instructions for Treatment How to access health informa tion online Indication:Smoker Start:01-May-2017 Instruction Type:Patient Education How to access health informa tion online - Detail Indication:Smoker Start:01-May-2017 Instruction Type:Patient Education Patient Instructions Indication:Smoker Start:01-May-2017 Instruction Type:Provider Instructions for Treatment How to access health informa tion online Indication:Muscle spasm Start:24-Aug-2016 Instruction Type:Patient Education How to access health informa tion online - Detail Indication:Muscle spasm Start:24-Aug-2016 Instruction Type:Patient Education Patient Instructions Indication:Muscle spasm Start:24-Aug-2016 Instruction Type:Provider Instructions for Treatment How to access health informa tion online Indication:Flu-like symptoms Start:26-Apr-2016 Instruction Type:Patient Education How to access health informa tion online - Detail Indication:Flu-like symptoms Start:26-Apr-2016 Instruction Type:Patient Education Patient Instructions Indication:Flu-like symptoms Start:26-Apr-2016 Instruction Type:Provider Instructions for Treatment How to access health informa tion online Indication:Elevated LFTs Start:22-Jan-2016 Instruction Type:Patient Education How to access health informa tion online - Detail Indication:Elevated LFTs Start:22-Jan-2016 Instruction Type:Patient Education Patient Instructions Indication:Elevated LFTs Start:22-Jan-2016 Instruction Type:Provider Instructions for Treatment How to access health informa tion online Indication:Smoker Start:22-Jan-2016 Instruction Type:Patient Education How to access health informa tion online - Detail Indication:Smoker Start:22-Jan-2016 Instruction Type:Patient Education How to access health informa tion online Indication:Otitis, right Start:04-Dec-2015 Instruction Type:Patient Education How to access health informa tion online - Detail Indication:Otitis, right Start:04-Dec-2015 Instruction Type:Patient Education Patient Instructions Indication:Otitis, right Start:04-Dec-2015 Instruction Type:Provider Instructions for Treatment Patient Instructions Indication:Hyperlipidemia Start:05-Jun-2015 Instruction Type:Provider Instructions for Treatment How to access health informa tion online Indication:Fatty liver Start:30-Jul-2014 Instruction Type:Patient Education How to access health informa tion online - Detail Indication:Fatty liver Start:30-Jul-2014 Instruction Type:Patient Education Patient Instructions Indication:Fatty liver Start:30-Jul-2014 Instruction Type:Provider Instructions for Treatment How to access health informa tion online Indication:Fatty liver Start:30-May-2014 Instruction Type:Patient Education How to access health informa tion online - Detail Indication:Fatty liver Start:30-May-2014 Instruction Type:Patient Education Patient Instructions Indication:Fatty liver Start:30-May-2014 Instruction Type:Provider Instructions for Treatment Patient Instructions Indication:Flank pain Start:31-Jul-2013 Instruction Type:Provider Instructions for Treatment Patient Instructions Indication:Sciatica, unspecified laterality Start:29-Jul-2013 Instruction Type:Provider Instructions for Treatment Patient Instructions Indication:Flank pain Start:29-Jul-2013 Instruction Type:Provider Instructions for Treatment Patient Instructions Indication:Dysthymic Start:18-Jun-2013 Instruction Type:Provider Instructions for Treatment Patient Instructions Indication:Other specified viral infection, in conditions classified elsewhere and of unspecified site Start:08-Feb-2013 Instruction Type:Provider Instructions for Treatment Patient Instructions Indication:Chronic obstructive asthma with acute exacerbation Start:17-Apr-2012 Instruction Type:Provider Instructions for Treatment Patient Instructions: keep w orking on wt loss for fatty liver reasons Indication:Dysthymic Start:08-Dec-2011 Instruction Type:Provider Instructions for Treatment [facility]; [facility] Work Phone: Instructions* Name Dates Details How to Access Health Informa tion Online using Patient Portal and [employer] Apps Indication:Smoker Start:29-Jul-2020 Instruction Type:Patient Education Patient Instructions Indication:Smoker Start:29-Jul-2020 Instruction Type:Provider Instructions for Treatment How to access health informa tion online Indication:Smoker Start:24-Jun-2019 Instruction Type:Patient Education How to access health informa tion online - Detail Indication:Smoker Start:24-Jun-2019 Instruction Type:Patient Education Patient Instructions Indication:Smoker Start:24-Jun-2019 Instruction Type:Provider Instructions for Treatment How to access health informa tion online Indication:Smoker Start:19-Jun-2019 Instruction Type:Patient Education How to access health informa tion online - Detail Indication:Smoker Start:19-Jun-2019 Instruction Type:Patient Education Patient Instructions Indication:Smoker Start:19-Jun-2019 Instruction Type:Provider Instructions for Treatment How to access health informa tion online - Detail Indication:Non-smoker Start:23-Apr-2019 Instruction Type:Patient Education How to access health informa tion online Indication:Non-smoker Start:23-Apr-2019 Instruction Type:Patient Education Patient Instructions Indication:Non-smoker Start:23-Apr-2019 Instruction Type:Provider Instructions for Treatment How to access health informa tion online Indication:Non-smoker Start:24-Sep-2018 Instruction Type:Patient Education How to access health informa tion online - Detail Indication:Non-smoker Start:24-Sep-2018 Instruction Type:Patient Education Patient Instructions Indication:Non-smoker Start:24-Sep-2018 Instruction Type:Provider Instructions for Treatment How to access health informa tion online Indication:Smoker Start:21-Sep-2018 Instruction Type:Patient Education How to access health informa tion online - Detail Indication:Smoker Start:21-Sep-2018 Instruction Type:Patient Education Patient Instructions Indication:Smoker Start:21-Sep-2018 Instruction Type:Provider Instructions for Treatment How to access health informa tion online Indication:Smoker Start:20-Mar-2018 Instruction Type:Patient Education How to access health informa tion online - Detail Indication:Smoker Start:20-Mar-2018 Instruction Type:Patient Education Patient Instructions Indication:Body mass index 28.0-28.9, adult Start:20-Mar-2018 Instruction Type:Provider Instructions for Treatment How to access health informa tion online Indication:Need for prophylactic vaccination and inoculation against influenza (Renamed from Need for immunization against influenza) Start:12-Jan-2018 Instruction Type:Patient Education How to access health informa tion online - Detail Indication:Need for prophylactic vaccination and inoculation against influenza (Renamed from Need for immunization against influenza) Start:12-Jan-2018 Instruction Type:Patient Education Patient Instructions Indication:Need for prophylactic vaccination and inoculation against influenza (Renamed from Need for immunization against influenza) Start:12-Jan-2018 Instruction Type:Provider Instructions for Treatment How to access health informa tion online Indication:Smoker Start:15-Nov-2017 Instruction Type:Patient Education How to access health informa tion online - Detail Indication:Smoker Start:15-Nov-2017 Instruction Type:Patient Education Patient Instructions Indication:Smoker Start:15-Nov-2017 Instruction Type:Provider Instructions for Treatment How to access health informa tion online Indication:Rash of hands Start:23-Jun-2017 Instruction Type:Patient Education How to access health informa tion online - Detail Indication:Rash of hands Start:23-Jun-2017 Instruction Type:Patient Education Patient Instructions Indication:Rash of hands Start:23-Jun-2017 Instruction Type:Provider Instructions for Treatment How to access health informa tion online Indication:Smoker Start:01-May-2017 Instruction Type:Patient Education How to access health informa tion online - Detail Indication:Smoker Start:01-May-2017 Instruction Type:Patient Education Patient Instructions Indication:Smoker Start:01-May-2017 Instruction Type:Provider Instructions for Treatment How to access health informa tion online Indication:Muscle spasm Start:24-Aug-2016 Instruction Type:Patient Education How to access health informa tion online - Detail Indication:Muscle spasm Start:24-Aug-2016 Instruction Type:Patient Education Patient Instructions Indication:Muscle spasm Start:24-Aug-2016 Instruction Type:Provider Instructions for Treatment How to access health informa tion online Indication:Flu-like symptoms Start:26-Apr-2016 Instruction Type:Patient Education How to access health informa tion online - Detail Indication:Flu-like symptoms Start:26-Apr-2016 Instruction Type:Patient Education Patient Instructions Indication:Flu-like symptoms Start:26-Apr-2016 Instruction Type:Provider Instructions for Treatment How to access health informa tion online Indication:Elevated LFTs Start:22-Jan-2016 Instruction Type:Patient Education How to access health informa tion online - Detail Indication:Elevated LFTs Start:22-Jan-2016 Instruction Type:Patient Education Patient Instructions Indication:Elevated LFTs Start:22-Jan-2016 Instruction Type:Provider Instructions for Treatment How to access health informa tion online Indication:Smoker Start:22-Jan-2016 Instruction Type:Patient Education How to access health informa tion online - Detail Indication:Smoker Start:22-Jan-2016 Instruction Type:Patient Education How to access health informa tion online Indication:Otitis, right Start:04-Dec-2015 Instruction Type:Patient Education How to access health informa tion online - Detail Indication:Otitis, right Start:04-Dec-2015 Instruction Type:Patient Education Patient Instructions Indication:Otitis, right Start:04-Dec-2015 Instruction Type:Provider Instructions for Treatment Patient Instructions Indication:Hyperlipidemia Start:05-Jun-2015 Instruction Type:Provider Instructions for Treatment How to access health informa tion online Indication:Fatty liver Start:30-Jul-2014 Instruction Type:Patient Education How to access health informa tion online - Detail Indication:Fatty liver Start:30-Jul-2014 Instruction Type:Patient Education Patient Instructions Indication:Fatty liver Start:30-Jul-2014 Instruction Type:Provider Instructions for Treatment How to access health informa tion online Indication:Fatty liver Start:30-May-2014 Instruction Type:Patient Education How to access health informa tion online - Detail Indication:Fatty liver Start:30-May-2014 Instruction Type:Patient Education Patient Instructions Indication:Fatty liver Start:30-May-2014 Instruction Type:Provider Instructions for Treatment Patient Instructions Indication:Flank pain Start:31-Jul-2013 Instruction Type:Provider Instructions for Treatment Patient Instructions Indication:Sciatica, unspecified laterality Start:29-Jul-2013 Instruction Type:Provider Instructions for Treatment Patient Instructions Indication:Flank pain Start:29-Jul-2013 Instruction Type:Provider Instructions for Treatment Patient Instructions Indication:Dysthymic Start:18-Jun-2013 Instruction Type:Provider Instructions for Treatment Patient Instructions Indication:Other specified viral infection, in conditions classified elsewhere and of unspecified site Start:08-Feb-2013 Instruction Type:Provider Instructions for Treatment Patient Instructions Indication:Chronic obstructive asthma with acute exacerbation Start:17-Apr-2012 Instruction Type:Provider Instructions for Treatment Patient Instructions: keep w orking on wt loss for fatty liver reasons Indication:Dysthymic Start:08-Dec-2011 Instruction Type:Provider Instructions for Treatment [facility]; [facility] Work Phone: Instructions* Name Dates Details How to Access Health Informa tion Online using Patient Portal and [employer] Apps Indication:Smoker Start:29-Jul-2020 Instruction Type:Patient Education Patient Instructions Indication:Smoker Start:29-Jul-2020 Instruction Type:Provider Instructions for Treatment How to access health informa tion online Indication:Smoker Start:24-Jun-2019 Instruction Type:Patient Education How to access health informa tion online - Detail Indication:Smoker Start:24-Jun-2019 Instruction Type:Patient Education Patient Instructions Indication:Smoker Start:24-Jun-2019 Instruction Type:Provider Instructions for Treatment How to access health informa tion online Indication:Smoker Start:19-Jun-2019 Instruction Type:Patient Education How to access health informa tion online - Detail Indication:Smoker Start:19-Jun-2019 Instruction Type:Patient Education Patient Instructions Indication:Smoker Start:19-Jun-2019 Instruction Type:Provider Instructions for Treatment How to access health informa tion online - Detail Indication:Non-smoker Start:23-Apr-2019 Instruction Type:Patient Education How to access health informa tion online Indication:Non-smoker Start:23-Apr-2019 Instruction Type:Patient Education Patient Instructions Indication:Non-smoker Start:23-Apr-2019 Instruction Type:Provider Instructions for Treatment How to access health informa tion online Indication:Non-smoker Start:24-Sep-2018 Instruction Type:Patient Education How to access health informa tion online - Detail Indication:Non-smoker Start:24-Sep-2018 Instruction Type:Patient Education Patient Instructions Indication:Non-smoker Start:24-Sep-2018 Instruction Type:Provider Instructions for Treatment How to access health informa tion online Indication:Smoker Start:21-Sep-2018 Instruction Type:Patient Education How to access health informa tion online - Detail Indication:Smoker Start:21-Sep-2018 Instruction Type:Patient Education Patient Instructions Indication:Smoker Start:21-Sep-2018 Instruction Type:Provider Instructions for Treatment How to access health informa tion online Indication:Smoker Start:20-Mar-2018 Instruction Type:Patient Education How to access health informa tion online - Detail Indication:Smoker Start:20-Mar-2018 Instruction Type:Patient Education Patient Instructions Indication:Body mass index 28.0-28.9, adult Start:20-Mar-2018 Instruction Type:Provider Instructions for Treatment How to access health informa tion online Indication:Need for prophylactic vaccination and inoculation against influenza (Renamed from Need for immunization against influenza) Start:12-Jan-2018 Instruction Type:Patient Education How to access health informa tion online - Detail Indication:Need for prophylactic vaccination and inoculation against influenza (Renamed from Need for immunization against influenza) Start:12-Jan-2018 Instruction Type:Patient Education Patient Instructions Indication:Need for prophylactic vaccination and inoculation against influenza (Renamed from Need for immunization against influenza) Start:12-Jan-2018 Instruction Type:Provider Instructions for Treatment How to access health informa tion online Indication:Smoker Start:15-Nov-2017 Instruction Type:Patient Education How to access health informa tion online - Detail Indication:Smoker Start:15-Nov-2017 Instruction Type:Patient Education Patient Instructions Indication:Smoker Start:15-Nov-2017 Instruction Type:Provider Instructions for Treatment How to access health informa tion online Indication:Rash of hands Start:23-Jun-2017 Instruction Type:Patient Education How to access health informa tion online - Detail Indication:Rash of hands Start:23-Jun-2017 Instruction Type:Patient Education Patient Instructions Indication:Rash of hands Start:23-Jun-2017 Instruction Type:Provider Instructions for Treatment How to access health informa tion online Indication:Smoker Start:01-May-2017 Instruction Type:Patient Education How to access health informa tion online - Detail Indication:Smoker Start:01-May-2017 Instruction Type:Patient Education Patient Instructions Indication:Smoker Start:01-May-2017 Instruction Type:Provider Instructions for Treatment How to access health informa tion online Indication:Muscle spasm Start:24-Aug-2016 Instruction Type:Patient Education How to access health informa tion online - Detail Indication:Muscle spasm Start:24-Aug-2016 Instruction Type:Patient Education Patient Instructions Indication:Muscle spasm Start:24-Aug-2016 Instruction Type:Provider Instructions for Treatment How to access health informa tion online Indication:Flu-like symptoms Start:26-Apr-2016 Instruction Type:Patient Education How to access health informa tion online - Detail Indication:Flu-like symptoms Start:26-Apr-2016 Instruction Type:Patient Education Patient Instructions Indication:Flu-like symptoms Start:26-Apr-2016 Instruction Type:Provider Instructions for Treatment How to access health informa tion online Indication:Elevated LFTs Start:22-Jan-2016 Instruction Type:Patient Education How to access health informa tion online - Detail Indication:Elevated LFTs Start:22-Jan-2016 Instruction Type:Patient Education Patient Instructions Indication:Elevated LFTs Start:22-Jan-2016 Instruction Type:Provider Instructions for Treatment How to access health informa tion online Indication:Smoker Start:22-Jan-2016 Instruction Type:Patient Education How to access health informa tion online - Detail Indication:Smoker Start:22-Jan-2016 Instruction Type:Patient Education How to access health informa tion online Indication:Otitis, right Start:04-Dec-2015 Instruction Type:Patient Education How to access health informa tion online - Detail Indication:Otitis, right Start:04-Dec-2015 Instruction Type:Patient Education Patient Instructions Indication:Otitis, right Start:04-Dec-2015 Instruction Type:Provider Instructions for Treatment Patient Instructions Indication:Hyperlipidemia Start:05-Jun-2015 Instruction Type:Provider Instructions for Treatment How to access health informa tion online Indication:Fatty liver Start:30-Jul-2014 Instruction Type:Patient Education How to access health informa tion online - Detail Indication:Fatty liver Start:30-Jul-2014 Instruction Type:Patient Education Patient Instructions Indication:Fatty liver Start:30-Jul-2014 Instruction Type:Provider Instructions for Treatment How to access health informa tion online Indication:Fatty liver Start:30-May-2014 Instruction Type:Patient Education How to access health informa tion online - Detail Indication:Fatty liver Start:30-May-2014 Instruction Type:Patient Education Patient Instructions Indication:Fatty liver Start:30-May-2014 Instruction Type:Provider Instructions for Treatment Patient Instructions Indication:Flank pain Start:31-Jul-2013 Instruction Type:Provider Instructions for Treatment Patient Instructions Indication:Sciatica, unspecified laterality Start:29-Jul-2013 Instruction Type:Provider Instructions for Treatment Patient Instructions Indication:Flank pain Start:29-Jul-2013 Instruction Type:Provider Instructions for Treatment Patient Instructions Indication:Dysthymic Start:18-Jun-2013 Instruction Type:Provider Instructions for Treatment Patient Instructions Indication:Other specified viral infection, in conditions classified elsewhere and of unspecified site Start:08-Feb-2013 Instruction Type:Provider Instructions for Treatment Patient Instructions Indication:Chronic obstructive asthma with acute exacerbation Start:17-Apr-2012 Instruction Type:Provider Instructions for Treatment Patient Instructions: keep w orking on wt loss for fatty liver reasons Indication:Dysthymic Start:08-Dec-2011 Instruction Type:Provider Instructions for Treatment [facility]; [facility] Work Phone: Instructions* Name Dates Details How to Access Health Informa tion Online using Patient Portal and [employer] Apps Indication:Non-smoker Start:07-Aug-2020 Instruction Type:Patient Education Patient Instructions Indication:Non-smoker Start:07-Aug-2020 Instruction Type:Provider Instructions for Treatment How to Access Health Informa tion Online using Patient Portal and [employer] Apps Indication:Smoker Start:29-Jul-2020 Instruction Type:Patient Education Patient Instructions Indication:Smoker Start:29-Jul-2020 Instruction Type:Provider Instructions for Treatment How to access health informa tion online Indication:Smoker Start:24-Jun-2019 Instruction Type:Patient Education How to access health informa tion online - Detail Indication:Smoker Start:24-Jun-2019 Instruction Type:Patient Education Patient Instructions Indication:Smoker Start:24-Jun-2019 Instruction Type:Provider Instructions for Treatment How to access health informa tion online Indication:Smoker Start:19-Jun-2019 Instruction Type:Patient Education How to access health informa tion online - Detail Indication:Smoker Start:19-Jun-2019 Instruction Type:Patient Education Patient Instructions Indication:Smoker Start:19-Jun-2019 Instruction Type:Provider Instructions for Treatment How to access health informa tion online - Detail Indication:Non-smoker Start:23-Apr-2019 Instruction Type:Patient Education How to access health informa tion online Indication:Non-smoker Start:23-Apr-2019 Instruction Type:Patient Education Patient Instructions Indication:Non-smoker Start:23-Apr-2019 Instruction Type:Provider Instructions for Treatment How to access health informa tion online Indication:Non-smoker Start:24-Sep-2018 Instruction Type:Patient Education How to access health informa tion online - Detail Indication:Non-smoker Start:24-Sep-2018 Instruction Type:Patient Education Patient Instructions Indication:Non-smoker Start:24-Sep-2018 Instruction Type:Provider Instructions for Treatment How to access health informa tion online Indication:Smoker Start:21-Sep-2018 Instruction Type:Patient Education How to access health informa tion online - Detail Indication:Smoker Start:21-Sep-2018 Instruction Type:Patient Education Patient Instructions Indication:Smoker Start:21-Sep-2018 Instruction Type:Provider Instructions for Treatment How to access health informa tion online Indication:Smoker Start:20-Mar-2018 Instruction Type:Patient Education How to access health informa tion online - Detail Indication:Smoker Start:20-Mar-2018 Instruction Type:Patient Education Patient Instructions Indication:Body mass index 28.0-28.9, adult Start:20-Mar-2018 Instruction Type:Provider Instructions for Treatment How to access health informa tion online Indication:Need for prophylactic vaccination and inoculation against influenza (Renamed from Need for immunization against influenza) Start:12-Jan-2018 Instruction Type:Patient Education How to access health informa tion online - Detail Indication:Need for prophylactic vaccination and inoculation against influenza (Renamed from Need for immunization against influenza) Start:12-Jan-2018 Instruction Type:Patient Education Patient Instructions Indication:Need for prophylactic vaccination and inoculation against influenza (Renamed from Need for immunization against influenza) Start:12-Jan-2018 Instruction Type:Provider Instructions for Treatment How to access health informa tion online Indication:Smoker Start:15-Nov-2017 Instruction Type:Patient Education How to access health informa tion online - Detail Indication:Smoker Start:15-Nov-2017 Instruction Type:Patient Education Patient Instructions Indication:Smoker Start:15-Nov-2017 Instruction Type:Provider Instructions for Treatment How to access health informa tion online Indication:Rash of hands Start:23-Jun-2017 Instruction Type:Patient Education How to access health informa tion online - Detail Indication:Rash of hands Start:23-Jun-2017 Instruction Type:Patient Education Patient Instructions Indication:Rash of hands Start:23-Jun-2017 Instruction Type:Provider Instructions for Treatment How to access health informa tion online Indication:Smoker Start:01-May-2017 Instruction Type:Patient Education How to access health informa tion online - Detail Indication:Smoker Start:01-May-2017 Instruction Type:Patient Education Patient Instructions Indication:Smoker Start:01-May-2017 Instruction Type:Provider Instructions for Treatment How to access health informa tion online Indication:Muscle spasm Start:24-Aug-2016 Instruction Type:Patient Education How to access health informa tion online - Detail Indication:Muscle spasm Start:24-Aug-2016 Instruction Type:Patient Education Patient Instructions Indication:Muscle spasm Start:24-Aug-2016 Instruction Type:Provider Instructions for Treatment How to access health informa tion online Indication:Flu-like symptoms Start:26-Apr-2016 Instruction Type:Patient Education How to access health informa tion online - Detail Indication:Flu-like symptoms Start:26-Apr-2016 Instruction Type:Patient Education Patient Instructions Indication:Flu-like symptoms Start:26-Apr-2016 Instruction Type:Provider Instructions for Treatment How to access health informa tion online Indication:Elevated LFTs Start:22-Jan-2016 Instruction Type:Patient Education How to access health informa tion online - Detail Indication:Elevated LFTs Start:22-Jan-2016 Instruction Type:Patient Education Patient Instructions Indication:Elevated LFTs Start:22-Jan-2016 Instruction Type:Provider Instructions for Treatment How to access health informa tion online Indication:Smoker Start:22-Jan-2016 Instruction Type:Patient Education How to access health informa tion online - Detail Indication:Smoker Start:22-Jan-2016 Instruction Type:Patient Education How to access health informa tion online Indication:Otitis, right Start:04-Dec-2015 Instruction Type:Patient Education How to access health informa tion online - Detail Indication:Otitis, right Start:04-Dec-2015 Instruction Type:Patient Education Patient Instructions Indication:Otitis, right Start:04-Dec-2015 Instruction Type:Provider Instructions for Treatment Patient Instructions Indication:Hyperlipidemia Start:05-Jun-2015 Instruction Type:Provider Instructions for Treatment How to access health informa tion online Indication:Fatty liver Start:30-Jul-2014 Instruction Type:Patient Education How to access health informa tion online - Detail Indication:Fatty liver Start:30-Jul-2014 Instruction Type:Patient Education Patient Instructions Indication:Fatty liver Start:30-Jul-2014 Instruction Type:Provider Instructions for Treatment How to access health informa tion online Indication:Fatty liver Start:30-May-2014 Instruction Type:Patient Education How to access health informa tion online - Detail Indication:Fatty liver Start:30-May-2014 Instruction Type:Patient Education Patient Instructions Indication:Fatty liver Start:30-May-2014 Instruction Type:Provider Instructions for Treatment Patient Instructions Indication:Flank pain Start:31-Jul-2013 Instruction Type:Provider Instructions for Treatment Patient Instructions Indication:Sciatica, unspecified laterality Start:29-Jul-2013 Instruction Type:Provider Instructions for Treatment Patient Instructions Indication:Flank pain Start:29-Jul-2013 Instruction Type:Provider Instructions for Treatment Patient Instructions Indication:Dysthymic Start:18-Jun-2013 Instruction Type:Provider Instructions for Treatment Patient Instructions Indication:Other specified viral infection, in conditions classified elsewhere and of unspecified site Start:08-Feb-2013 Instruction Type:Provider Instructions for Treatment Patient Instructions Indication:Chronic obstructive asthma with acute exacerbation Start:17-Apr-2012 Instruction Type:Provider Instructions for Treatment Patient Instructions: keep w orking on wt loss for fatty liver reasons Indication:Dysthymic Start:08-Dec-2011 Instruction Type:Provider Instructions for Treatment [facility]; [facility] Work Phone: Instructions* Name Dates Details How to Access Health Informa tion Online using Patient Portal and [employer] Apps Indication:Non-smoker Start:07-Aug-2020 Instruction Type:Patient Education Patient Instructions Indication:Non-smoker Start:07-Aug-2020 Instruction Type:Provider Instructions for Treatment How to Access Health Informa tion Online using Patient Portal and [employer] Apps Indication:Smoker Start:29-Jul-2020 Instruction Type:Patient Education Patient Instructions Indication:Smoker Start:29-Jul-2020 Instruction Type:Provider Instructions for Treatment How to access health informa tion online Indication:Smoker Start:24-Jun-2019 Instruction Type:Patient Education How to access health informa tion online - Detail Indication:Smoker Start:24-Jun-2019 Instruction Type:Patient Education Patient Instructions Indication:Smoker Start:24-Jun-2019 Instruction Type:Provider Instructions for Treatment How to access health informa tion online Indication:Smoker Start:19-Jun-2019 Instruction Type:Patient Education How to access health informa tion online - Detail Indication:Smoker Start:19-Jun-2019 Instruction Type:Patient Education Patient Instructions Indication:Smoker Start:19-Jun-2019 Instruction Type:Provider Instructions for Treatment How to access health informa tion online - Detail Indication:Non-smoker Start:23-Apr-2019 Instruction Type:Patient Education How to access health informa tion online Indication:Non-smoker Start:23-Apr-2019 Instruction Type:Patient Education Patient Instructions Indication:Non-smoker Start:23-Apr-2019 Instruction Type:Provider Instructions for Treatment How to access health informa tion online Indication:Non-smoker Start:24-Sep-2018 Instruction Type:Patient Education How to access health informa tion online - Detail Indication:Non-smoker Start:24-Sep-2018 Instruction Type:Patient Education Patient Instructions Indication:Non-smoker Start:24-Sep-2018 Instruction Type:Provider Instructions for Treatment How to access health informa tion online Indication:Smoker Start:21-Sep-2018 Instruction Type:Patient Education How to access health informa tion online - Detail Indication:Smoker Start:21-Sep-2018 Instruction Type:Patient Education Patient Instructions Indication:Smoker Start:21-Sep-2018 Instruction Type:Provider Instructions for Treatment How to access health informa tion online Indication:Smoker Start:20-Mar-2018 Instruction Type:Patient Education How to access health informa tion online - Detail Indication:Smoker Start:20-Mar-2018 Instruction Type:Patient Education Patient Instructions Indication:Body mass index 28.0-28.9, adult Start:20-Mar-2018 Instruction Type:Provider Instructions for Treatment How to access health informa tion online Indication:Need for prophylactic vaccination and inoculation against influenza (Renamed from Need for immunization against influenza) Start:12-Jan-2018 Instruction Type:Patient Education How to access health informa tion online - Detail Indication:Need for prophylactic vaccination and inoculation against influenza (Renamed from Need for immunization against influenza) Start:12-Jan-2018 Instruction Type:Patient Education Patient Instructions Indication:Need for prophylactic vaccination and inoculation against influenza (Renamed from Need for immunization against influenza) Start:12-Jan-2018 Instruction Type:Provider Instructions for Treatment How to access health informa tion online Indication:Smoker Start:15-Nov-2017 Instruction Type:Patient Education How to access health informa tion online - Detail Indication:Smoker Start:15-Nov-2017 Instruction Type:Patient Education Patient Instructions Indication:Smoker Start:15-Nov-2017 Instruction Type:Provider Instructions for Treatment How to access health informa tion online Indication:Rash of hands Start:23-Jun-2017 Instruction Type:Patient Education How to access health informa tion online - Detail Indication:Rash of hands Start:23-Jun-2017 Instruction Type:Patient Education Patient Instructions Indication:Rash of hands Start:23-Jun-2017 Instruction Type:Provider Instructions for Treatment How to access health informa tion online Indication:Smoker Start:01-May-2017 Instruction Type:Patient Education How to access health informa tion online - Detail Indication:Smoker Start:01-May-2017 Instruction Type:Patient Education Patient Instructions Indication:Smoker Start:01-May-2017 Instruction Type:Provider Instructions for Treatment How to access health informa tion online Indication:Muscle spasm Start:24-Aug-2016 Instruction Type:Patient Education How to access health informa tion online - Detail Indication:Muscle spasm Start:24-Aug-2016 Instruction Type:Patient Education Patient Instructions Indication:Muscle spasm Start:24-Aug-2016 Instruction Type:Provider Instructions for Treatment How to access health informa tion online Indication:Flu-like symptoms Start:26-Apr-2016 Instruction Type:Patient Education How to access health informa tion online - Detail Indication:Flu-like symptoms Start:26-Apr-2016 Instruction Type:Patient Education Patient Instructions Indication:Flu-like symptoms Start:26-Apr-2016 Instruction Type:Provider Instructions for Treatment How to access health informa tion online Indication:Elevated LFTs Start:22-Jan-2016 Instruction Type:Patient Education How to access health informa tion online - Detail Indication:Elevated LFTs Start:22-Jan-2016 Instruction Type:Patient Education Patient Instructions Indication:Elevated LFTs Start:22-Jan-2016 Instruction Type:Provider Instructions for Treatment How to access health informa tion online Indication:Smoker Start:22-Jan-2016 Instruction Type:Patient Education How to access health informa tion online - Detail Indication:Smoker Start:22-Jan-2016 Instruction Type:Patient Education How to access health informa tion online Indication:Otitis, right Start:04-Dec-2015 Instruction Type:Patient Education How to access health informa tion online - Detail Indication:Otitis, right Start:04-Dec-2015 Instruction Type:Patient Education Patient Instructions Indication:Otitis, right Start:04-Dec-2015 Instruction Type:Provider Instructions for Treatment Patient Instructions Indication:Hyperlipidemia Start:05-Jun-2015 Instruction Type:Provider Instructions for Treatment How to access health informa tion online Indication:Fatty liver Start:30-Jul-2014 Instruction Type:Patient Education How to access health informa tion online - Detail Indication:Fatty liver Start:30-Jul-2014 Instruction Type:Patient Education Patient Instructions Indication:Fatty liver Start:30-Jul-2014 Instruction Type:Provider Instructions for Treatment How to access health informa tion online Indication:Fatty liver Start:30-May-2014 Instruction Type:Patient Education How to access health informa tion online - Detail Indication:Fatty liver Start:30-May-2014 Instruction Type:Patient Education Patient Instructions Indication:Fatty liver Start:30-May-2014 Instruction Type:Provider Instructions for Treatment Patient Instructions Indication:Flank pain Start:31-Jul-2013 Instruction Type:Provider Instructions for Treatment Patient Instructions Indication:Sciatica, unspecified laterality Start:29-Jul-2013 Instruction Type:Provider Instructions for Treatment Patient Instructions Indication:Flank pain Start:29-Jul-2013 Instruction Type:Provider Instructions for Treatment Patient Instructions Indication:Dysthymic Start:18-Jun-2013 Instruction Type:Provider Instructions for Treatment Patient Instructions Indication:Other specified viral infection, in conditions classified elsewhere and of unspecified site Start:08-Feb-2013 Instruction Type:Provider Instructions for Treatment Patient Instructions Indication:Chronic obstructive asthma with acute exacerbation Start:17-Apr-2012 Instruction Type:Provider Instructions for Treatment Patient Instructions: keep w orking on wt loss for fatty liver reasons Indication:Dysthymic Start:08-Dec-2011 Instruction Type:Provider Instructions for Treatment [facility]; [facility] Work Phone: Instructions* Name Dates Details How to Access Health Informa tion Online using Patient Portal and [employer] Apps Indication:Non-smoker Start:07-Aug-2020 Instruction Type:Patient Education Patient Instructions Indication:Non-smoker Start:07-Aug-2020 Instruction Type:Provider Instructions for Treatment How to Access Health Informa tion Online using Patient Portal and [employer] Apps Indication:Smoker Start:29-Jul-2020 Instruction Type:Patient Education Patient Instructions Indication:Smoker Start:29-Jul-2020 Instruction Type:Provider Instructions for Treatment How to access health informa tion online Indication:Smoker Start:24-Jun-2019 Instruction Type:Patient Education How to access health informa tion online - Detail Indication:Smoker Start:24-Jun-2019 Instruction Type:Patient Education Patient Instructions Indication:Smoker Start:24-Jun-2019 Instruction Type:Provider Instructions for Treatment How to access health informa tion online Indication:Smoker Start:19-Jun-2019 Instruction Type:Patient Education How to access health informa tion online - Detail Indication:Smoker Start:19-Jun-2019 Instruction Type:Patient Education Patient Instructions Indication:Smoker Start:19-Jun-2019 Instruction Type:Provider Instructions for Treatment How to access health informa tion online - Detail Indication:Non-smoker Start:23-Apr-2019 Instruction Type:Patient Education How to access health informa tion online Indication:Non-smoker Start:23-Apr-2019 Instruction Type:Patient Education Patient Instructions Indication:Non-smoker Start:23-Apr-2019 Instruction Type:Provider Instructions for Treatment How to access health informa tion online Indication:Non-smoker Start:24-Sep-2018 Instruction Type:Patient Education How to access health informa tion online - Detail Indication:Non-smoker Start:24-Sep-2018 Instruction Type:Patient Education Patient Instructions Indication:Non-smoker Start:24-Sep-2018 Instruction Type:Provider Instructions for Treatment How to access health informa tion online Indication:Smoker Start:21-Sep-2018 Instruction Type:Patient Education How to access health informa tion online - Detail Indication:Smoker Start:21-Sep-2018 Instruction Type:Patient Education Patient Instructions Indication:Smoker Start:21-Sep-2018 Instruction Type:Provider Instructions for Treatment How to access health informa tion online Indication:Smoker Start:20-Mar-2018 Instruction Type:Patient Education How to access health informa tion online - Detail Indication:Smoker Start:20-Mar-2018 Instruction Type:Patient Education Patient Instructions Indication:Body mass index 28.0-28.9, adult Start:20-Mar-2018 Instruction Type:Provider Instructions for Treatment How to access health informa tion online Indication:Need for prophylactic vaccination and inoculation against influenza (Renamed from Need for immunization against influenza) Start:12-Jan-2018 Instruction Type:Patient Education How to access health informa tion online - Detail Indication:Need for prophylactic vaccination and inoculation against influenza (Renamed from Need for immunization against influenza) Start:12-Jan-2018 Instruction Type:Patient Education Patient Instructions Indication:Need for prophylactic vaccination and inoculation against influenza (Renamed from Need for immunization against influenza) Start:12-Jan-2018 Instruction Type:Provider Instructions for Treatment How to access health informa tion online Indication:Smoker Start:15-Nov-2017 Instruction Type:Patient Education How to access health informa tion online - Detail Indication:Smoker Start:15-Nov-2017 Instruction Type:Patient Education Patient Instructions Indication:Smoker Start:15-Nov-2017 Instruction Type:Provider Instructions for Treatment How to access health informa tion online Indication:Rash of hands Start:23-Jun-2017 Instruction Type:Patient Education How to access health informa tion online - Detail Indication:Rash of hands Start:23-Jun-2017 Instruction Type:Patient Education Patient Instructions Indication:Rash of hands Start:23-Jun-2017 Instruction Type:Provider Instructions for Treatment How to access health informa tion online Indication:Smoker Start:01-May-2017 Instruction Type:Patient Education How to access health informa tion online - Detail Indication:Smoker Start:01-May-2017 Instruction Type:Patient Education Patient Instructions Indication:Smoker Start:01-May-2017 Instruction Type:Provider Instructions for Treatment How to access health informa tion online Indication:Muscle spasm Start:24-Aug-2016 Instruction Type:Patient Education How to access health informa tion online - Detail Indication:Muscle spasm Start:24-Aug-2016 Instruction Type:Patient Education Patient Instructions Indication:Muscle spasm Start:24-Aug-2016 Instruction Type:Provider Instructions for Treatment How to access health informa tion online Indication:Flu-like symptoms Start:26-Apr-2016 Instruction Type:Patient Education How to access health informa tion online - Detail Indication:Flu-like symptoms Start:26-Apr-2016 Instruction Type:Patient Education Patient Instructions Indication:Flu-like symptoms Start:26-Apr-2016 Instruction Type:Provider Instructions for Treatment How to access health informa tion online Indication:Elevated LFTs Start:22-Jan-2016 Instruction Type:Patient Education How to access health informa tion online - Detail Indication:Elevated LFTs Start:22-Jan-2016 Instruction Type:Patient Education Patient Instructions Indication:Elevated LFTs Start:22-Jan-2016 Instruction Type:Provider Instructions for Treatment How to access health informa tion online Indication:Smoker Start:22-Jan-2016 Instruction Type:Patient Education How to access health informa tion online - Detail Indication:Smoker Start:22-Jan-2016 Instruction Type:Patient Education How to access health informa tion online Indication:Otitis, right Start:04-Dec-2015 Instruction Type:Patient Education How to access health informa tion online - Detail Indication:Otitis, right Start:04-Dec-2015 Instruction Type:Patient Education Patient Instructions Indication:Otitis, right Start:04-Dec-2015 Instruction Type:Provider Instructions for Treatment Patient Instructions Indication:Hyperlipidemia Start:05-Jun-2015 Instruction Type:Provider Instructions for Treatment How to access health informa tion online Indication:Fatty liver Start:30-Jul-2014 Instruction Type:Patient Education How to access health informa tion online - Detail Indication:Fatty liver Start:30-Jul-2014 Instruction Type:Patient Education Patient Instructions Indication:Fatty liver Start:30-Jul-2014 Instruction Type:Provider Instructions for Treatment How to access health informa tion online Indication:Fatty liver Start:30-May-2014 Instruction Type:Patient Education How to access health informa tion online - Detail Indication:Fatty liver Start:30-May-2014 Instruction Type:Patient Education Patient Instructions Indication:Fatty liver Start:30-May-2014 Instruction Type:Provider Instructions for Treatment Patient Instructions Indication:Flank pain Start:31-Jul-2013 Instruction Type:Provider Instructions for Treatment Patient Instructions Indication:Sciatica, unspecified laterality Start:29-Jul-2013 Instruction Type:Provider Instructions for Treatment Patient Instructions Indication:Flank pain Start:29-Jul-2013 Instruction Type:Provider Instructions for Treatment Patient Instructions Indication:Dysthymic Start:18-Jun-2013 Instruction Type:Provider Instructions for Treatment Patient Instructions Indication:Other specified viral infection, in conditions classified elsewhere and of unspecified site Start:08-Feb-2013 Instruction Type:Provider Instructions for Treatment Patient Instructions Indication:Chronic obstructive asthma with acute exacerbation Start:17-Apr-2012 Instruction Type:Provider Instructions for Treatment Patient Instructions: keep w orking on wt loss for fatty liver reasons Indication:Dysthymic Start:08-Dec-2011 Instruction Type:Provider Instructions for Treatment [facility]; [facility] Work Phone: Instructions* Name Dates Details Patient Instructions Indication:Smoker Start:02-Aug-2021 Instruction Type:Provider Instructions for Treatment How to Access Health Informa tion Online using Patient Portal and [employer] Apps Indication:Smoker Start:02-Aug-2021 Instruction Type:Patient Education How to Access Health Informa tion Online using Patient Portal and [employer] Apps Indication:Non-smoker Start:07-Aug-2020 Instruction Type:Patient Education Patient Instructions Indication:Non-smoker Start:07-Aug-2020 Instruction Type:Provider Instructions for Treatment How to Access Health Informa tion Online using Patient Portal and [employer] Apps Indication:Smoker Start:29-Jul-2020 Instruction Type:Patient Education Patient Instructions Indication:Smoker Start:29-Jul-2020 Instruction Type:Provider Instructions for Treatment How to access health informa tion online Indication:Smoker Start:24-Jun-2019 Instruction Type:Patient Education How to access health informa tion online - Detail Indication:Smoker Start:24-Jun-2019 Instruction Type:Patient Education Patient Instructions Indication:Smoker Start:24-Jun-2019 Instruction Type:Provider Instructions for Treatment How to access health informa tion online Indication:Smoker Start:19-Jun-2019 Instruction Type:Patient Education How to access health informa tion online - Detail Indication:Smoker Start:19-Jun-2019 Instruction Type:Patient Education Patient Instructions Indication:Smoker Start:19-Jun-2019 Instruction Type:Provider Instructions for Treatment How to access health informa tion online - Detail Indication:Non-smoker Start:23-Apr-2019 Instruction Type:Patient Education How to access health informa tion online Indication:Non-smoker Start:23-Apr-2019 Instruction Type:Patient Education Patient Instructions Indication:Non-smoker Start:23-Apr-2019 Instruction Type:Provider Instructions for Treatment How to access health informa tion online Indication:Non-smoker Start:24-Sep-2018 Instruction Type:Patient Education How to access health informa tion online - Detail Indication:Non-smoker Start:24-Sep-2018 Instruction Type:Patient Education Patient Instructions Indication:Non-smoker Start:24-Sep-2018 Instruction Type:Provider Instructions for Treatment How to access health informa tion online Indication:Smoker Start:21-Sep-2018 Instruction Type:Patient Education How to access health informa tion online - Detail Indication:Smoker Start:21-Sep-2018 Instruction Type:Patient Education Patient Instructions Indication:Smoker Start:21-Sep-2018 Instruction Type:Provider Instructions for Treatment How to access health informa tion online Indication:Smoker Start:20-Mar-2018 Instruction Type:Patient Education How to access health informa tion online - Detail Indication:Smoker Start:20-Mar-2018 Instruction Type:Patient Education Patient Instructions Indication:Body mass index 28.0-28.9, adult Start:20-Mar-2018 Instruction Type:Provider Instructions for Treatment How to access health informa tion online Indication:Need for prophylactic vaccination and inoculation against influenza (Renamed from Need for immunization against influenza) Start:12-Jan-2018 Instruction Type:Patient Education How to access health informa tion online - Detail Indication:Need for prophylactic vaccination and inoculation against influenza (Renamed from Need for immunization against influenza) Start:12-Jan-2018 Instruction Type:Patient Education Patient Instructions Indication:Need for prophylactic vaccination and inoculation against influenza (Renamed from Need for immunization against influenza) Start:12-Jan-2018 Instruction Type:Provider Instructions for Treatment How to access health informa tion online Indication:Smoker Start:15-Nov-2017 Instruction Type:Patient Education How to access health informa tion online - Detail Indication:Smoker Start:15-Nov-2017 Instruction Type:Patient Education Patient Instructions Indication:Smoker Start:15-Nov-2017 Instruction Type:Provider Instructions for Treatment How to access health informa tion online Indication:Rash of hands Start:23-Jun-2017 Instruction Type:Patient Education How to access health informa tion online - Detail Indication:Rash of hands Start:23-Jun-2017 Instruction Type:Patient Education Patient Instructions Indication:Rash of hands Start:23-Jun-2017 Instruction Type:Provider Instructions for Treatment How to access health informa tion online Indication:Smoker Start:01-May-2017 Instruction Type:Patient Education How to access health informa tion online - Detail Indication:Smoker Start:01-May-2017 Instruction Type:Patient Education Patient Instructions Indication:Smoker Start:01-May-2017 Instruction Type:Provider Instructions for Treatment How to access health informa tion online Indication:Muscle spasm Start:24-Aug-2016 Instruction Type:Patient Education How to access health informa tion online - Detail Indication:Muscle spasm Start:24-Aug-2016 Instruction Type:Patient Education Patient Instructions Indication:Muscle spasm Start:24-Aug-2016 Instruction Type:Provider Instructions for Treatment How to access health informa tion online Indication:Flu-like symptoms Start:26-Apr-2016 Instruction Type:Patient Education How to access health informa tion online - Detail Indication:Flu-like symptoms Start:26-Apr-2016 Instruction Type:Patient Education Patient Instructions Indication:Flu-like symptoms Start:26-Apr-2016 Instruction Type:Provider Instructions for Treatment How to access health informa tion online Indication:Elevated LFTs Start:22-Jan-2016 Instruction Type:Patient Education How to access health informa tion online - Detail Indication:Elevated LFTs Start:22-Jan-2016 Instruction Type:Patient Education Patient Instructions Indication:Elevated LFTs Start:22-Jan-2016 Instruction Type:Provider Instructions for Treatment How to access health informa tion online Indication:Smoker Start:22-Jan-2016 Instruction Type:Patient Education How to access health informa tion online - Detail Indication:Smoker Start:22-Jan-2016 Instruction Type:Patient Education How to access health informa tion online Indication:Otitis, right Start:04-Dec-2015 Instruction Type:Patient Education How to access health informa tion online - Detail Indication:Otitis, right Start:04-Dec-2015 Instruction Type:Patient Education Patient Instructions Indication:Otitis, right Start:04-Dec-2015 Instruction Type:Provider Instructions for Treatment Patient Instructions Indication:Hyperlipidemia Start:05-Jun-2015 Instruction Type:Provider Instructions for Treatment How to access health informa tion online Indication:Fatty liver Start:30-Jul-2014 Instruction Type:Patient Education How to access health informa tion online - Detail Indication:Fatty liver Start:30-Jul-2014 Instruction Type:Patient Education Patient Instructions Indication:Fatty liver Start:30-Jul-2014 Instruction Type:Provider Instructions for Treatment How to access health informa tion online Indication:Fatty liver Start:30-May-2014 Instruction Type:Patient Education How to access health informa tion online - Detail Indication:Fatty liver Start:30-May-2014 Instruction Type:Patient Education Patient Instructions Indication:Fatty liver Start:30-May-2014 Instruction Type:Provider Instructions for Treatment Patient Instructions Indication:Flank pain Start:31-Jul-2013 Instruction Type:Provider Instructions for Treatment Patient Instructions Indication:Sciatica, unspecified laterality Start:29-Jul-2013 Instruction Type:Provider Instructions for Treatment Patient Instructions Indication:Flank pain Start:29-Jul-2013 Instruction Type:Provider Instructions for Treatment Patient Instructions Indication:Dysthymic Start:18-Jun-2013 Instruction Type:Provider Instructions for Treatment Patient Instructions Indication:Other specified viral infection, in conditions classified elsewhere and of unspecified site Start:08-Feb-2013 Instruction Type:Provider Instructions for Treatment Patient Instructions Indication:Chronic obstructive asthma with acute exacerbation Start:17-Apr-2012 Instruction Type:Provider Instructions for Treatment Patient Instructions: keep w orking on wt loss for fatty liver reasons Indication:Dysthymic Start:08-Dec-2011 Instruction Type:Provider Instructions for Treatment [facility]; [facility] Work Phone: Instructions* Name Dates Details Patient Instructions Indication:BMI 29.0-29.9,adult Start:08-Nov-2021 Instruction Type:Provider Instructions for Treatment How to Access Health Informa tion Online using Patient Portal and [employer] Apps Indication:BMI 29.0-29.9,adult Start:08-Nov-2021 Instruction Type:Patient Education Patient Instructions Indication:Smoker Start:02-Aug-2021 Instruction Type:Provider Instructions for Treatment How to Access Health Informa tion Online using Patient Portal and [employer] Apps Indication:Smoker Start:02-Aug-2021 Instruction Type:Patient Education How to Access Health Informa tion Online using Patient Portal and [employer] Apps Indication:Non-smoker Start:07-Aug-2020 Instruction Type:Patient Education Patient Instructions Indication:Non-smoker Start:07-Aug-2020 Instruction Type:Provider Instructions for Treatment How to Access Health Informa tion Online using Patient Portal and [employer] Apps Indication:Smoker Start:29-Jul-2020 Instruction Type:Patient Education Patient Instructions Indication:Smoker Start:29-Jul-2020 Instruction Type:Provider Instructions for Treatment How to access health informa tion online Indication:Smoker Start:24-Jun-2019 Instruction Type:Patient Education How to access health informa tion online - Detail Indication:Smoker Start:24-Jun-2019 Instruction Type:Patient Education Patient Instructions Indication:Smoker Start:24-Jun-2019 Instruction Type:Provider Instructions for Treatment How to access health informa tion online Indication:Smoker Start:19-Jun-2019 Instruction Type:Patient Education How to access health informa tion online - Detail Indication:Smoker Start:19-Jun-2019 Instruction Type:Patient Education Patient Instructions Indication:Smoker Start:19-Jun-2019 Instruction Type:Provider Instructions for Treatment How to access health informa tion online - Detail Indication:Non-smoker Start:23-Apr-2019 Instruction Type:Patient Education How to access health informa tion online Indication:Non-smoker Start:23-Apr-2019 Instruction Type:Patient Education Patient Instructions Indication:Non-smoker Start:23-Apr-2019 Instruction Type:Provider Instructions for Treatment How to access health informa tion online Indication:Non-smoker Start:24-Sep-2018 Instruction Type:Patient Education How to access health informa tion online - Detail Indication:Non-smoker Start:24-Sep-2018 Instruction Type:Patient Education Patient Instructions Indication:Non-smoker Start:24-Sep-2018 Instruction Type:Provider Instructions for Treatment How to access health informa tion online Indication:Smoker Start:21-Sep-2018 Instruction Type:Patient Education How to access health informa tion online - Detail Indication:Smoker Start:21-Sep-2018 Instruction Type:Patient Education Patient Instructions Indication:Smoker Start:21-Sep-2018 Instruction Type:Provider Instructions for Treatment How to access health informa tion online Indication:Smoker Start:20-Mar-2018 Instruction Type:Patient Education How to access health informa tion online - Detail Indication:Smoker Start:20-Mar-2018 Instruction Type:Patient Education Patient Instructions Indication:Body mass index 28.0-28.9, adult Start:20-Mar-2018 Instruction Type:Provider Instructions for Treatment How to access health informa tion online Indication:Need for prophylactic vaccination and inoculation against influenza (Renamed from Need for immunization against influenza) Start:12-Jan-2018 Instruction Type:Patient Education How to access health informa tion online - Detail Indication:Need for prophylactic vaccination and inoculation against influenza (Renamed from Need for immunization against influenza) Start:12-Jan-2018 Instruction Type:Patient Education Patient Instructions Indication:Need for prophylactic vaccination and inoculation against influenza (Renamed from Need for immunization against influenza) Start:12-Jan-2018 Instruction Type:Provider Instructions for Treatment How to access health informa tion online Indication:Smoker Start:15-Nov-2017 Instruction Type:Patient Education How to access health informa tion online - Detail Indication:Smoker Start:15-Nov-2017 Instruction Type:Patient Education Patient Instructions Indication:Smoker Start:15-Nov-2017 Instruction Type:Provider Instructions for Treatment How to access health informa tion online Indication:Rash of hands Start:23-Jun-2017 Instruction Type:Patient Education How to access health informa tion online - Detail Indication:Rash of hands Start:23-Jun-2017 Instruction Type:Patient Education Patient Instructions Indication:Rash of hands Start:23-Jun-2017 Instruction Type:Provider Instructions for Treatment How to access health informa tion online Indication:Smoker Start:01-May-2017 Instruction Type:Patient Education How to access health informa tion online - Detail Indication:Smoker Start:01-May-2017 Instruction Type:Patient Education Patient Instructions Indication:Smoker Start:01-May-2017 Instruction Type:Provider Instructions for Treatment How to access health informa tion online Indication:Muscle spasm Start:24-Aug-2016 Instruction Type:Patient Education How to access health informa tion online - Detail Indication:Muscle spasm Start:24-Aug-2016 Instruction Type:Patient Education Patient Instructions Indication:Muscle spasm Start:24-Aug-2016 Instruction Type:Provider Instructions for Treatment How to access health informa tion online Indication:Flu-like symptoms Start:26-Apr-2016 Instruction Type:Patient Education How to access health informa tion online - Detail Indication:Flu-like symptoms Start:26-Apr-2016 Instruction Type:Patient Education Patient Instructions Indication:Flu-like symptoms Start:26-Apr-2016 Instruction Type:Provider Instructions for Treatment How to access health informa tion online Indication:Elevated LFTs Start:22-Jan-2016 Instruction Type:Patient Education How to access health informa tion online - Detail Indication:Elevated LFTs Start:22-Jan-2016 Instruction Type:Patient Education Patient Instructions Indication:Elevated LFTs Start:22-Jan-2016 Instruction Type:Provider Instructions for Treatment How to access health informa tion online Indication:Smoker Start:22-Jan-2016 Instruction Type:Patient Education How to access health informa tion online - Detail Indication:Smoker Start:22-Jan-2016 Instruction Type:Patient Education How to access health informa tion online Indication:Otitis, right Start:04-Dec-2015 Instruction Type:Patient Education How to access health informa tion online - Detail Indication:Otitis, right Start:04-Dec-2015 Instruction Type:Patient Education Patient Instructions Indication:Otitis, right Start:04-Dec-2015 Instruction Type:Provider Instructions for Treatment Patient Instructions Indication:Hyperlipidemia Start:05-Jun-2015 Instruction Type:Provider Instructions for Treatment How to access health informa tion online Indication:Fatty liver Start:30-Jul-2014 Instruction Type:Patient Education How to access health informa tion online - Detail Indication:Fatty liver Start:30-Jul-2014 Instruction Type:Patient Education Patient Instructions Indication:Fatty liver Start:30-Jul-2014 Instruction Type:Provider Instructions for Treatment How to access health informa tion online Indication:Fatty liver Start:30-May-2014 Instruction Type:Patient Education How to access health informa tion online - Detail Indication:Fatty liver Start:30-May-2014 Instruction Type:Patient Education Patient Instructions Indication:Fatty liver Start:30-May-2014 Instruction Type:Provider Instructions for Treatment Patient Instructions Indication:Flank pain Start:31-Jul-2013 Instruction Type:Provider Instructions for Treatment Patient Instructions Indication:Sciatica, unspecified laterality Start:29-Jul-2013 Instruction Type:Provider Instructions for Treatment Patient Instructions Indication:Flank pain Start:29-Jul-2013 Instruction Type:Provider Instructions for Treatment Patient Instructions Indication:Dysthymic Start:18-Jun-2013 Instruction Type:Provider Instructions for Treatment Patient Instructions Indication:Other specified viral infection, in conditions classified elsewhere and of unspecified site Start:08-Feb-2013 Instruction Type:Provider Instructions for Treatment Patient Instructions Indication:Chronic obstructive asthma with acute exacerbation Start:17-Apr-2012 Instruction Type:Provider Instructions for Treatment Patient Instructions: keep w orking on wt loss for fatty liver reasons Indication:Dysthymic Start:08-Dec-2011 Instruction Type:Provider Instructions for Treatment [facility]; [facility] Work Phone: Instructions* Name Dates Details Patient Instructions Indication:BMI 29.0-29.9,adult Start:08-Nov-2021 Instruction Type:Provider Instructions for Treatment How to Access Health Informa tion Online using Patient Portal and [employer]rd [employer] Apps Indication:BMI 29.0-29.9,adult Start:08-Nov-2021 Instruction Type:Patient Education Patient Instructions Indication:Smoker Start:02-Aug-2021 Instruction Type:Provider Instructions for Treatment How to Access Health Informa tion Online using Patient Portal and [employer]rd [employer] Apps Indication:Smoker Start:02-Aug-2021 Instruction Type:Patient Education How to Access Health Informa tion Online using Patient Portal and [employer]rd [employer] Apps Indication:Non-smoker Start:07-Aug-2020 Instruction Type:Patient Education Patient Instructions Indication:Non-smoker Start:07-Aug-2020 Instruction Type:Provider Instructions for Treatment How to Access Health Informa tion Online using Patient Portal and [employer]rd [employer] Apps Indication:Smoker Start:29-Jul-2020 Instruction Type:Patient Education Patient Instructions Indication:Smoker Start:29-Jul-2020 Instruction Type:Provider Instructions for Treatment How to access health informa tion online Indication:Smoker Start:24-Jun-2019 Instruction Type:Patient Education How to access health informa tion online - Detail Indication:Smoker Start:24-Jun-2019 Instruction Type:Patient Education Patient Instructions Indication:Smoker Start:24-Jun-2019 Instruction Type:Provider Instructions for Treatment How to access health informa tion online Indication:Smoker Start:19-Jun-2019 Instruction Type:Patient Education How to access health informa tion online - Detail Indication:Smoker Start:19-Jun-2019 Instruction Type:Patient Education Patient Instructions Indication:Smoker Start:19-Jun-2019 Instruction Type:Provider Instructions for Treatment How to access health informa tion online - Detail Indication:Non-smoker Start:23-Apr-2019 Instruction Type:Patient Education How to access health informa tion online Indication:Non-smoker Start:23-Apr-2019 Instruction Type:Patient Education Patient Instructions Indication:Non-smoker Start:23-Apr-2019 Instruction Type:Provider Instructions for Treatment How to access health informa tion online Indication:Non-smoker Start:24-Sep-2018 Instruction Type:Patient Education How to access health informa tion online - Detail Indication:Non-smoker Start:24-Sep-2018 Instruction Type:Patient Education Patient Instructions Indication:Non-smoker Start:24-Sep-2018 Instruction Type:Provider Instructions for Treatment How to access health informa tion online Indication:Smoker Start:21-Sep-2018 Instruction Type:Patient Education How to access health informa tion online - Detail Indication:Smoker Start:21-Sep-2018 Instruction Type:Patient Education Patient Instructions Indication:Smoker Start:21-Sep-2018 Instruction Type:Provider Instructions for Treatment How to access health informa tion online Indication:Smoker Start:20-Mar-2018 Instruction Type:Patient Education How to access health informa tion online - Detail Indication:Smoker Start:20-Mar-2018 Instruction Type:Patient Education Patient Instructions Indication:Body mass index 28.0-28.9, adult Start:20-Mar-2018 Instruction Type:Provider Instructions for Treatment How to access health informa tion online Indication:Need for prophylactic vaccination and inoculation against influenza (Renamed from Need for immunization against influenza) Start:12-Jan-2018 Instruction Type:Patient Education How to access health informa tion online - Detail Indication:Need for prophylactic vaccination and inoculation against influenza (Renamed from Need for immunization against influenza) Start:12-Jan-2018 Instruction Type:Patient Education Patient Instructions Indication:Need for prophylactic vaccination and inoculation against influenza (Renamed from Need for immunization against influenza) Start:12-Jan-2018 Instruction Type:Provider Instructions for Treatment How to access health informa tion online Indication:Smoker Start:15-Nov-2017 Instruction Type:Patient Education How to access health informa tion online - Detail Indication:Smoker Start:15-Nov-2017 Instruction Type:Patient Education Patient Instructions Indication:Smoker Start:15-Nov-2017 Instruction Type:Provider Instructions for Treatment How to access health informa tion online Indication:Rash of hands Start:23-Jun-2017 Instruction Type:Patient Education How to access health informa tion online - Detail Indication:Rash of hands Start:23-Jun-2017 Instruction Type:Patient Education Patient Instructions Indication:Rash of hands Start:23-Jun-2017 Instruction Type:Provider Instructions for Treatment How to access health informa tion online Indication:Smoker Start:01-May-2017 Instruction Type:Patient Education How to access health informa tion online - Detail Indication:Smoker Start:01-May-2017 Instruction Type:Patient Education Patient Instructions Indication:Smoker Start:01-May-2017 Instruction Type:Provider Instructions for Treatment How to access health informa tion online Indication:Muscle spasm Start:24-Aug-2016 Instruction Type:Patient Education How to access health informa tion online - Detail Indication:Muscle spasm Start:24-Aug-2016 Instruction Type:Patient Education Patient Instructions Indication:Muscle spasm Start:24-Aug-2016 Instruction Type:Provider Instructions for Treatment How to access health informa tion online Indication:Flu-like symptoms Start:26-Apr-2016 Instruction Type:Patient Education How to access health informa tion online - Detail Indication:Flu-like symptoms Start:26-Apr-2016 Instruction Type:Patient Education Patient Instructions Indication:Flu-like symptoms Start:26-Apr-2016 Instruction Type:Provider Instructions for Treatment How to access health informa tion online Indication:Elevated LFTs Start:22-Jan-2016 Instruction Type:Patient Education How to access health informa tion online - Detail Indication:Elevated LFTs Start:22-Jan-2016 Instruction Type:Patient Education Patient Instructions Indication:Elevated LFTs Start:22-Jan-2016 Instruction Type:Provider Instructions for Treatment How to access health informa tion online Indication:Smoker Start:22-Jan-2016 Instruction Type:Patient Education How to access health informa tion online - Detail Indication:Smoker Start:22-Jan-2016 Instruction Type:Patient Education How to access health informa tion online Indication:Otitis, right Start:04-Dec-2015 Instruction Type:Patient Education How to access health informa tion online - Detail Indication:Otitis, right Start:04-Dec-2015 Instruction Type:Patient Education Patient Instructions Indication:Otitis, right Start:04-Dec-2015 Instruction Type:Provider Instructions for Treatment Patient Instructions Indication:Hyperlipidemia Start:05-Jun-2015 Instruction Type:Provider Instructions for Treatment How to access health informa tion online Indication:Fatty liver Start:30-Jul-2014 Instruction Type:Patient Education How to access health informa tion online - Detail Indication:Fatty liver Start:30-Jul-2014 Instruction Type:Patient Education Patient Instructions Indication:Fatty liver Start:30-Jul-2014 Instruction Type:Provider Instructions for Treatment How to access health informa tion online Indication:Fatty liver Start:30-May-2014 Instruction Type:Patient Education How to access health informa tion online - Detail Indication:Fatty liver Start:30-May-2014 Instruction Type:Patient Education Patient Instructions Indication:Fatty liver Start:30-May-2014 Instruction Type:Provider Instructions for Treatment Patient Instructions Indication:Flank pain Start:31-Jul-2013 Instruction Type:Provider Instructions for Treatment Patient Instructions Indication:Sciatica, unspecified laterality Start:29-Jul-2013 Instruction Type:Provider Instructions for Treatment Patient Instructions Indication:Flank pain Start:29-Jul-2013 Instruction Type:Provider Instructions for Treatment Patient Instructions Indication:Dysthymic Start:18-Jun-2013 Instruction Type:Provider Instructions for Treatment Patient Instructions Indication:Other specified viral infection, in conditions classified elsewhere and of unspecified site Start:08-Feb-2013 Instruction Type:Provider Instructions for Treatment Patient Instructions Indication:Chronic obstructive asthma with acute exacerbation Start:17-Apr-2012 Instruction Type:Provider Instructions for Treatment Patient Instructions: keep w orking on wt loss for fatty liver reasons Indication:Dysthymic Start:08-Dec-2011 Instruction Type:Provider Instructions for Treatment [facility]; [facility] Work Phone: Instructions* Name Dates Details Patient Instructions Indication:BMI 29.0-29.9,adult Start:08-Nov-2021 Instruction Type:Provider Instructions for Treatment How to Access Health Informa tion Online using Patient Portal and [employer]rd [employer] Apps Indication:BMI 29.0-29.9,adult Start:08-Nov-2021 Instruction Type:Patient Education Patient Instructions Indication:Smoker Start:02-Aug-2021 Instruction Type:Provider Instructions for Treatment How to Access Health Informa tion Online using Patient Portal and [employer]rd [employer] Apps Indication:Smoker Start:02-Aug-2021 Instruction Type:Patient Education How to Access Health Informa tion Online using Patient Portal and [employer]rd [employer] Apps Indication:Non-smoker Start:07-Aug-2020 Instruction Type:Patient Education Patient Instructions Indication:Non-smoker Start:07-Aug-2020 Instruction Type:Provider Instructions for Treatment How to Access Health Informa tion Online using Patient Portal and [employer]rd [employer] Apps Indication:Smoker Start:29-Jul-2020 Instruction Type:Patient Education Patient Instructions Indication:Smoker Start:29-Jul-2020 Instruction Type:Provider Instructions for Treatment How to access health informa tion online Indication:Smoker Start:24-Jun-2019 Instruction Type:Patient Education How to access health informa tion online - Detail Indication:Smoker Start:24-Jun-2019 Instruction Type:Patient Education Patient Instructions Indication:Smoker Start:24-Jun-2019 Instruction Type:Provider Instructions for Treatment How to access health informa tion online Indication:Smoker Start:19-Jun-2019 Instruction Type:Patient Education How to access health informa tion online - Detail Indication:Smoker Start:19-Jun-2019 Instruction Type:Patient Education Patient Instructions Indication:Smoker Start:19-Jun-2019 Instruction Type:Provider Instructions for Treatment How to access health informa tion online - Detail Indication:Non-smoker Start:23-Apr-2019 Instruction Type:Patient Education How to access health informa tion online Indication:Non-smoker Start:23-Apr-2019 Instruction Type:Patient Education Patient Instructions Indication:Non-smoker Start:23-Apr-2019 Instruction Type:Provider Instructions for Treatment How to access health informa tion online Indication:Non-smoker Start:24-Sep-2018 Instruction Type:Patient Education How to access health informa tion online - Detail Indication:Non-smoker Start:24-Sep-2018 Instruction Type:Patient Education Patient Instructions Indication:Non-smoker Start:24-Sep-2018 Instruction Type:Provider Instructions for Treatment How to access health informa tion online Indication:Smoker Start:21-Sep-2018 Instruction Type:Patient Education How to access health informa tion online - Detail Indication:Smoker Start:21-Sep-2018 Instruction Type:Patient Education Patient Instructions Indication:Smoker Start:21-Sep-2018 Instruction Type:Provider Instructions for Treatment How to access health informa tion online Indication:Smoker Start:20-Mar-2018 Instruction Type:Patient Education How to access health informa tion online - Detail Indication:Smoker Start:20-Mar-2018 Instruction Type:Patient Education Patient Instructions Indication:Body mass index 28.0-28.9, adult Start:20-Mar-2018 Instruction Type:Provider Instructions for Treatment How to access health informa tion online Indication:Need for prophylactic vaccination and inoculation against influenza (Renamed from Need for immunization against influenza) Start:12-Jan-2018 Instruction Type:Patient Education How to access health informa tion online - Detail Indication:Need for prophylactic vaccination and inoculation against influenza (Renamed from Need for immunization against influenza) Start:12-Jan-2018 Instruction Type:Patient Education Patient Instructions Indication:Need for prophylactic vaccination and inoculation against influenza (Renamed from Need for immunization against influenza) Start:12-Jan-2018 Instruction Type:Provider Instructions for Treatment How to access health informa tion online Indication:Smoker Start:15-Nov-2017 Instruction Type:Patient Education How to access health informa tion online - Detail Indication:Smoker Start:15-Nov-2017 Instruction Type:Patient Education Patient Instructions Indication:Smoker Start:15-Nov-2017 Instruction Type:Provider Instructions for Treatment How to access health informa tion online Indication:Rash of hands Start:23-Jun-2017 Instruction Type:Patient Education How to access health informa tion online - Detail Indication:Rash of hands Start:23-Jun-2017 Instruction Type:Patient Education Patient Instructions Indication:Rash of hands Start:23-Jun-2017 Instruction Type:Provider Instructions for Treatment How to access health informa tion online Indication:Smoker Start:01-May-2017 Instruction Type:Patient Education How to access health informa tion online - Detail Indication:Smoker Start:01-May-2017 Instruction Type:Patient Education Patient Instructions Indication:Smoker Start:01-May-2017 Instruction Type:Provider Instructions for Treatment How to access health informa tion online Indication:Muscle spasm Start:24-Aug-2016 Instruction Type:Patient Education How to access health informa tion online - Detail Indication:Muscle spasm Start:24-Aug-2016 Instruction Type:Patient Education Patient Instructions Indication:Muscle spasm Start:24-Aug-2016 Instruction Type:Provider Instructions for Treatment How to access health informa tion online Indication:Flu-like symptoms Start:26-Apr-2016 Instruction Type:Patient Education How to access health informa tion online - Detail Indication:Flu-like symptoms Start:26-Apr-2016 Instruction Type:Patient Education Patient Instructions Indication:Flu-like symptoms Start:26-Apr-2016 Instruction Type:Provider Instructions for Treatment How to access health informa tion online Indication:Elevated LFTs Start:22-Jan-2016 Instruction Type:Patient Education How to access health informa tion online - Detail Indication:Elevated LFTs Start:22-Jan-2016 Instruction Type:Patient Education Patient Instructions Indication:Elevated LFTs Start:22-Jan-2016 Instruction Type:Provider Instructions for Treatment How to access health informa tion online Indication:Smoker Start:22-Jan-2016 Instruction Type:Patient Education How to access health informa tion online - Detail Indication:Smoker Start:22-Jan-2016 Instruction Type:Patient Education How to access health informa tion online Indication:Otitis, right Start:04-Dec-2015 Instruction Type:Patient Education How to access health informa tion online - Detail Indication:Otitis, right Start:04-Dec-2015 Instruction Type:Patient Education Patient Instructions Indication:Otitis, right Start:04-Dec-2015 Instruction Type:Provider Instructions for Treatment Patient Instructions Indication:Hyperlipidemia Start:05-Jun-2015 Instruction Type:Provider Instructions for Treatment How to access health informa tion online Indication:Fatty liver Start:30-Jul-2014 Instruction Type:Patient Education How to access health informa tion online - Detail Indication:Fatty liver Start:30-Jul-2014 Instruction Type:Patient Education Patient Instructions Indication:Fatty liver Start:30-Jul-2014 Instruction Type:Provider Instructions for Treatment How to access health informa tion online Indication:Fatty liver Start:30-May-2014 Instruction Type:Patient Education How to access health informa tion online - Detail Indication:Fatty liver Start:30-May-2014 Instruction Type:Patient Education Patient Instructions Indication:Fatty liver Start:30-May-2014 Instruction Type:Provider Instructions for Treatment Patient Instructions Indication:Flank pain Start:31-Jul-2013 Instruction Type:Provider Instructions for Treatment Patient Instructions Indication:Sciatica, unspecified laterality Start:29-Jul-2013 Instruction Type:Provider Instructions for Treatment Patient Instructions Indication:Flank pain Start:29-Jul-2013 Instruction Type:Provider Instructions for Treatment Patient Instructions Indication:Dysthymic Start:18-Jun-2013 Instruction Type:Provider Instructions for Treatment Patient Instructions Indication:Other specified viral infection, in conditions classified elsewhere and of unspecified site Start:08-Feb-2013 Instruction Type:Provider Instructions for Treatment Patient Instructions Indication:Chronic obstructive asthma with acute exacerbation Start:17-Apr-2012 Instruction Type:Provider Instructions for Treatment Patient Instructions: keep w orking on wt loss for fatty liver reasons Indication:Dysthymic Start:08-Dec-2011 Instruction Type:Provider Instructions for Treatment [facility]; [facility] Work Phone: Instructions* Name Dates Details Patient Instructions Indication:Smoker Start:22-Aug-2022 Instruction Type:Provider Instructions for Treatment How to Access Health Informa tion Online using Patient Portal and [employer]rd [employer] Apps Indication:Smoker Start:22-Aug-2022 Instruction Type:Patient Education Patient Instructions Indication:BMI 29.0-29.9,adult Start:08-Nov-2021 Instruction Type:Provider Instructions for Treatment How to Access Health Informa tion Online using Patient Portal and [employer]rd [employer] Apps Indication:BMI 29.0-29.9,adult Start:08-Nov-2021 Instruction Type:Patient Education Patient Instructions Indication:Smoker Start:02-Aug-2021 Instruction Type:Provider Instructions for Treatment How to Access Health Informa tion Online using Patient Portal and [employer]rd [employer] Apps Indication:Smoker Start:02-Aug-2021 Instruction Type:Patient Education How to Access Health Informa tion Online using Patient Portal and [employer]rd [employer] Apps Indication:Non-smoker Start:07-Aug-2020 Instruction Type:Patient Education Patient Instructions Indication:Non-smoker Start:07-Aug-2020 Instruction Type:Provider Instructions for Treatment How to Access Health Informa tion Online using Patient Portal and [employer]rd [employer] Apps Indication:Smoker Start:29-Jul-2020 Instruction Type:Patient Education Patient Instructions Indication:Smoker Start:29-Jul-2020 Instruction Type:Provider Instructions for Treatment How to access health informa tion online Indication:Smoker Start:24-Jun-2019 Instruction Type:Patient Education How to access health informa tion online - Detail Indication:Smoker Start:24-Jun-2019 Instruction Type:Patient Education Patient Instructions Indication:Smoker Start:24-Jun-2019 Instruction Type:Provider Instructions for Treatment How to access health informa tion online Indication:Smoker Start:19-Jun-2019 Instruction Type:Patient Education How to access health informa tion online - Detail Indication:Smoker Start:19-Jun-2019 Instruction Type:Patient Education Patient Instructions Indication:Smoker Start:19-Jun-2019 Instruction Type:Provider Instructions for Treatment How to access health informa tion online - Detail Indication:Non-smoker Start:23-Apr-2019 Instruction Type:Patient Education How to access health informa tion online Indication:Non-smoker Start:23-Apr-2019 Instruction Type:Patient Education Patient Instructions Indication:Non-smoker Start:23-Apr-2019 Instruction Type:Provider Instructions for Treatment How to access health informa tion online Indication:Non-smoker Start:24-Sep-2018 Instruction Type:Patient Education How to access health informa tion online - Detail Indication:Non-smoker Start:24-Sep-2018 Instruction Type:Patient Education Patient Instructions Indication:Non-smoker Start:24-Sep-2018 Instruction Type:Provider Instructions for Treatment How to access health informa tion online Indication:Smoker Start:21-Sep-2018 Instruction Type:Patient Education How to access health informa tion online - Detail Indication:Smoker Start:21-Sep-2018 Instruction Type:Patient Education Patient Instructions Indication:Smoker Start:21-Sep-2018 Instruction Type:Provider Instructions for Treatment How to access health informa tion online Indication:Smoker Start:20-Mar-2018 Instruction Type:Patient Education How to access health informa tion online - Detail Indication:Smoker Start:20-Mar-2018 Instruction Type:Patient Education Patient Instructions Indication:Body mass index 28.0-28.9, adult Start:20-Mar-2018 Instruction Type:Provider Instructions for Treatment How to access health informa tion online Indication:Need for prophylactic vaccination and inoculation against influenza (Renamed from Need for immunization against influenza) Start:12-Jan-2018 Instruction Type:Patient Education How to access health informa tion online - Detail Indication:Need for prophylactic vaccination and inoculation against influenza (Renamed from Need for immunization against influenza) Start:12-Jan-2018 Instruction Type:Patient Education Patient Instructions Indication:Need for prophylactic vaccination and inoculation against influenza (Renamed from Need for immunization against influenza) Start:12-Jan-2018 Instruction Type:Provider Instructions for Treatment How to access health informa tion online Indication:Smoker Start:15-Nov-2017 Instruction Type:Patient Education How to access health informa tion online - Detail Indication:Smoker Start:15-Nov-2017 Instruction Type:Patient Education Patient Instructions Indication:Smoker Start:15-Nov-2017 Instruction Type:Provider Instructions for Treatment How to access health informa tion online Indication:Rash of hands Start:23-Jun-2017 Instruction Type:Patient Education How to access health informa tion online - Detail Indication:Rash of hands Start:23-Jun-2017 Instruction Type:Patient Education Patient Instructions Indication:Rash of hands Start:23-Jun-2017 Instruction Type:Provider Instructions for Treatment How to access health informa tion online Indication:Smoker Start:01-May-2017 Instruction Type:Patient Education How to access health informa tion online - Detail Indication:Smoker Start:01-May-2017 Instruction Type:Patient Education Patient Instructions Indication:Smoker Start:01-May-2017 Instruction Type:Provider Instructions for Treatment How to access health informa tion online Indication:Muscle spasm Start:24-Aug-2016 Instruction Type:Patient Education How to access health informa tion online - Detail Indication:Muscle spasm Start:24-Aug-2016 Instruction Type:Patient Education Patient Instructions Indication:Muscle spasm Start:24-Aug-2016 Instruction Type:Provider Instructions for Treatment How to access health informa tion online Indication:Flu-like symptoms Start:26-Apr-2016 Instruction Type:Patient Education How to access health informa tion online - Detail Indication:Flu-like symptoms Start:26-Apr-2016 Instruction Type:Patient Education Patient Instructions Indication:Flu-like symptoms Start:26-Apr-2016 Instruction Type:Provider Instructions for Treatment How to access health informa tion online Indication:Elevated LFTs Start:22-Jan-2016 Instruction Type:Patient Education How to access health informa tion online - Detail Indication:Elevated LFTs Start:22-Jan-2016 Instruction Type:Patient Education Patient Instructions Indication:Elevated LFTs Start:22-Jan-2016 Instruction Type:Provider Instructions for Treatment How to access health informa tion online Indication:Smoker Start:22-Jan-2016 Instruction Type:Patient Education How to access health informa tion online - Detail Indication:Smoker Start:22-Jan-2016 Instruction Type:Patient Education How to access health informa tion online Indication:Otitis, right Start:04-Dec-2015 Instruction Type:Patient Education How to access health informa tion online - Detail Indication:Otitis, right Start:04-Dec-2015 Instruction Type:Patient Education Patient Instructions Indication:Otitis, right Start:04-Dec-2015 Instruction Type:Provider Instructions for Treatment Patient Instructions Indication:Hyperlipidemia Start:05-Jun-2015 Instruction Type:Provider Instructions for Treatment How to access health informa tion online Indication:Fatty liver Start:30-Jul-2014 Instruction Type:Patient Education How to access health informa tion online - Detail Indication:Fatty liver Start:30-Jul-2014 Instruction Type:Patient Education Patient Instructions Indication:Fatty liver Start:30-Jul-2014 Instruction Type:Provider Instructions for Treatment How to access health informa tion online Indication:Fatty liver Start:30-May-2014 Instruction Type:Patient Education How to access health informa tion online - Detail Indication:Fatty liver Start:30-May-2014 Instruction Type:Patient Education Patient Instructions Indication:Fatty liver Start:30-May-2014 Instruction Type:Provider Instructions for Treatment Patient Instructions Indication:Flank pain Start:31-Jul-2013 Instruction Type:Provider Instructions for Treatment Patient Instructions Indication:Sciatica, unspecified laterality Start:29-Jul-2013 Instruction Type:Provider Instructions for Treatment Patient Instructions Indication:Flank pain Start:29-Jul-2013 Instruction Type:Provider Instructions for Treatment Patient Instructions Indication:Dysthymic Start:18-Jun-2013 Instruction Type:Provider Instructions for Treatment Patient Instructions Indication:Other specified viral infection, in conditions classified elsewhere and of unspecified site Start:08-Feb-2013 Instruction Type:Provider Instructions for Treatment Patient Instructions Indication:Chronic obstructive asthma with acute exacerbation Start:17-Apr-2012 Instruction Type:Provider Instructions for Treatment Patient Instructions: keep w orking on wt loss for fatty liver reasons Indication:Dysthymic Start:08-Dec-2011 Instruction Type:Provider Instructions for Treatment [facility]; [facility] Work Phone: Instructions* Name Dates Details Patient Instructions Indication:Smoker Start:22-Aug-2022 Instruction Type:Provider Instructions for Treatment How to Access Health Informa tion Online using Patient Portal and [employer] Apps Indication:Smoker Start:22-Aug-2022 Instruction Type:Patient Education Patient Instructions Indication:BMI 29.0-29.9,adult Start:08-Nov-2021 Instruction Type:Provider Instructions for Treatment How to Access Health Informa tion Online using Patient Portal and [employer] Apps Indication:BMI 29.0-29.9,adult Start:08-Nov-2021 Instruction Type:Patient Education Patient Instructions Indication:Smoker Start:02-Aug-2021 Instruction Type:Provider Instructions for Treatment How to Access Health Informa tion Online using Patient Portal and [employer] Apps Indication:Smoker Start:02-Aug-2021 Instruction Type:Patient Education How to Access Health Informa tion Online using Patient Portal and [employer] Apps Indication:Non-smoker Start:07-Aug-2020 Instruction Type:Patient Education Patient Instructions Indication:Non-smoker Start:07-Aug-2020 Instruction Type:Provider Instructions for Treatment How to Access Health Informa tion Online using Patient Portal and [employer] Apps Indication:Smoker Start:29-Jul-2020 Instruction Type:Patient Education Patient Instructions Indication:Smoker Start:29-Jul-2020 Instruction Type:Provider Instructions for Treatment How to access health informa tion online Indication:Smoker Start:24-Jun-2019 Instruction Type:Patient Education How to access health informa tion online - Detail Indication:Smoker Start:24-Jun-2019 Instruction Type:Patient Education Patient Instructions Indication:Smoker Start:24-Jun-2019 Instruction Type:Provider Instructions for Treatment How to access health informa tion online Indication:Smoker Start:19-Jun-2019 Instruction Type:Patient Education How to access health informa tion online - Detail Indication:Smoker Start:19-Jun-2019 Instruction Type:Patient Education Patient Instructions Indication:Smoker Start:19-Jun-2019 Instruction Type:Provider Instructions for Treatment How to access health informa tion online - Detail Indication:Non-smoker Start:23-Apr-2019 Instruction Type:Patient Education How to access health informa tion online Indication:Non-smoker Start:23-Apr-2019 Instruction Type:Patient Education Patient Instructions Indication:Non-smoker Start:23-Apr-2019 Instruction Type:Provider Instructions for Treatment How to access health informa tion online Indication:Non-smoker Start:24-Sep-2018 Instruction Type:Patient Education How to access health informa tion online - Detail Indication:Non-smoker Start:24-Sep-2018 Instruction Type:Patient Education Patient Instructions Indication:Non-smoker Start:24-Sep-2018 Instruction Type:Provider Instructions for Treatment How to access health informa tion online Indication:Smoker Start:21-Sep-2018 Instruction Type:Patient Education How to access health informa tion online - Detail Indication:Smoker Start:21-Sep-2018 Instruction Type:Patient Education Patient Instructions Indication:Smoker Start:21-Sep-2018 Instruction Type:Provider Instructions for Treatment How to access health informa tion online Indication:Smoker Start:20-Mar-2018 Instruction Type:Patient Education How to access health informa tion online - Detail Indication:Smoker Start:20-Mar-2018 Instruction Type:Patient Education Patient Instructions Indication:Body mass index 28.0-28.9, adult Start:20-Mar-2018 Instruction Type:Provider Instructions for Treatment How to access health informa tion online Indication:Need for prophylactic vaccination and inoculation against influenza (Renamed from Need for immunization against influenza) Start:12-Jan-2018 Instruction Type:Patient Education How to access health informa tion online - Detail Indication:Need for prophylactic vaccination and inoculation against influenza (Renamed from Need for immunization against influenza) Start:12-Jan-2018 Instruction Type:Patient Education Patient Instructions Indication:Need for prophylactic vaccination and inoculation against influenza (Renamed from Need for immunization against influenza) Start:12-Jan-2018 Instruction Type:Provider Instructions for Treatment How to access health informa tion online Indication:Smoker Start:15-Nov-2017 Instruction Type:Patient Education How to access health informa tion online - Detail Indication:Smoker Start:15-Nov-2017 Instruction Type:Patient Education Patient Instructions Indication:Smoker Start:15-Nov-2017 Instruction Type:Provider Instructions for Treatment How to access health informa tion online Indication:Rash of hands Start:23-Jun-2017 Instruction Type:Patient Education How to access health informa tion online - Detail Indication:Rash of hands Start:23-Jun-2017 Instruction Type:Patient Education Patient Instructions Indication:Rash of hands Start:23-Jun-2017 Instruction Type:Provider Instructions for Treatment How to access health informa tion online Indication:Smoker Start:01-May-2017 Instruction Type:Patient Education How to access health informa tion online - Detail Indication:Smoker Start:01-May-2017 Instruction Type:Patient Education Patient Instructions Indication:Smoker Start:01-May-2017 Instruction Type:Provider Instructions for Treatment How to access health informa tion online Indication:Muscle spasm Start:24-Aug-2016 Instruction Type:Patient Education How to access health informa tion online - Detail Indication:Muscle spasm Start:24-Aug-2016 Instruction Type:Patient Education Patient Instructions Indication:Muscle spasm Start:24-Aug-2016 Instruction Type:Provider Instructions for Treatment How to access health informa tion online Indication:Flu-like symptoms Start:26-Apr-2016 Instruction Type:Patient Education How to access health informa tion online - Detail Indication:Flu-like symptoms Start:26-Apr-2016 Instruction Type:Patient Education Patient Instructions Indication:Flu-like symptoms Start:26-Apr-2016 Instruction Type:Provider Instructions for Treatment How to access health informa tion online Indication:Elevated LFTs Start:22-Jan-2016 Instruction Type:Patient Education How to access health informa tion online - Detail Indication:Elevated LFTs Start:22-Jan-2016 Instruction Type:Patient Education Patient Instructions Indication:Elevated LFTs Start:22-Jan-2016 Instruction Type:Provider Instructions for Treatment How to access health informa tion online Indication:Smoker Start:22-Jan-2016 Instruction Type:Patient Education How to access health informa tion online - Detail Indication:Smoker Start:22-Jan-2016 Instruction Type:Patient Education How to access health informa tion online Indication:Otitis, right Start:04-Dec-2015 Instruction Type:Patient Education How to access health informa tion online - Detail Indication:Otitis, right Start:04-Dec-2015 Instruction Type:Patient Education Patient Instructions Indication:Otitis, right Start:04-Dec-2015 Instruction Type:Provider Instructions for Treatment Patient Instructions Indication:Hyperlipidemia Start:05-Jun-2015 Instruction Type:Provider Instructions for Treatment How to access health informa tion online Indication:Fatty liver Start:30-Jul-2014 Instruction Type:Patient Education How to access health informa tion online - Detail Indication:Fatty liver Start:30-Jul-2014 Instruction Type:Patient Education Patient Instructions Indication:Fatty liver Start:30-Jul-2014 Instruction Type:Provider Instructions for Treatment How to access health informa tion online Indication:Fatty liver Start:30-May-2014 Instruction Type:Patient Education How to access health informa tion online - Detail Indication:Fatty liver Start:30-May-2014 Instruction Type:Patient Education Patient Instructions Indication:Fatty liver Start:30-May-2014 Instruction Type:Provider Instructions for Treatment Patient Instructions Indication:Flank pain Start:31-Jul-2013 Instruction Type:Provider Instructions for Treatment Patient Instructions Indication:Sciatica, unspecified laterality Start:29-Jul-2013 Instruction Type:Provider Instructions for Treatment Patient Instructions Indication:Flank pain Start:29-Jul-2013 Instruction Type:Provider Instructions for Treatment Patient Instructions Indication:Dysthymic Start:18-Jun-2013 Instruction Type:Provider Instructions for Treatment Patient Instructions Indication:Other specified viral infection, in conditions classified elsewhere and of unspecified site Start:08-Feb-2013 Instruction Type:Provider Instructions for Treatment Patient Instructions Indication:Chronic obstructive asthma with acute exacerbation Start:17-Apr-2012 Instruction Type:Provider Instructions for Treatment Patient Instructions: keep w orking on wt loss for fatty liver reasons Indication:Dysthymic Start:08-Dec-2011 Instruction Type:Provider Instructions for Treatment [facility]; [facility] Work Phone: Instructions* Name Dates Details Patient Instructions Indication:Smoker Start:22-Aug-2022 Instruction Type:Provider Instructions for Treatment How to Access Health Informa tion Online using Patient Portal and [employer] Apps Indication:Smoker Start:22-Aug-2022 Instruction Type:Patient Education Patient Instructions Indication:BMI 29.0-29.9,adult Start:08-Nov-2021 Instruction Type:Provider Instructions for Treatment How to Access Health Informa tion Online using Patient Portal and [employer] Apps Indication:BMI 29.0-29.9,adult Start:08-Nov-2021 Instruction Type:Patient Education Patient Instructions Indication:Smoker Start:02-Aug-2021 Instruction Type:Provider Instructions for Treatment How to Access Health Informa tion Online using Patient Portal and [employer] Apps Indication:Smoker Start:02-Aug-2021 Instruction Type:Patient Education How to Access Health Informa tion Online using Patient Portal and [employer]rd [employer] Apps Indication:Non-smoker Start:07-Aug-2020 Instruction Type:Patient Education Patient Instructions Indication:Non-smoker Start:07-Aug-2020 Instruction Type:Provider Instructions for Treatment How to Access Health Informa tion Online using Patient Portal and [employer] Apps Indication:Smoker Start:29-Jul-2020 Instruction Type:Patient Education Patient Instructions Indication:Smoker Start:29-Jul-2020 Instruction Type:Provider Instructions for Treatment How to access health informa tion online Indication:Smoker Start:24-Jun-2019 Instruction Type:Patient Education How to access health informa tion online - Detail Indication:Smoker Start:24-Jun-2019 Instruction Type:Patient Education Patient Instructions Indication:Smoker Start:24-Jun-2019 Instruction Type:Provider Instructions for Treatment How to access health informa tion online Indication:Smoker Start:19-Jun-2019 Instruction Type:Patient Education How to access health informa tion online - Detail Indication:Smoker Start:19-Jun-2019 Instruction Type:Patient Education Patient Instructions Indication:Smoker Start:19-Jun-2019 Instruction Type:Provider Instructions for Treatment How to access health informa tion online - Detail Indication:Non-smoker Start:23-Apr-2019 Instruction Type:Patient Education How to access health informa tion online Indication:Non-smoker Start:23-Apr-2019 Instruction Type:Patient Education Patient Instructions Indication:Non-smoker Start:23-Apr-2019 Instruction Type:Provider Instructions for Treatment How to access health informa tion online Indication:Non-smoker Start:24-Sep-2018 Instruction Type:Patient Education How to access health informa tion online - Detail Indication:Non-smoker Start:24-Sep-2018 Instruction Type:Patient Education Patient Instructions Indication:Non-smoker Start:24-Sep-2018 Instruction Type:Provider Instructions for Treatment How to access health informa tion online Indication:Smoker Start:21-Sep-2018 Instruction Type:Patient Education How to access health informa tion online - Detail Indication:Smoker Start:21-Sep-2018 Instruction Type:Patient Education Patient Instructions Indication:Smoker Start:21-Sep-2018 Instruction Type:Provider Instructions for Treatment How to access health informa tion online Indication:Smoker Start:20-Mar-2018 Instruction Type:Patient Education How to access health informa tion online - Detail Indication:Smoker Start:20-Mar-2018 Instruction Type:Patient Education Patient Instructions Indication:Body mass index 28.0-28.9, adult Start:20-Mar-2018 Instruction Type:Provider Instructions for Treatment How to access health informa tion online Indication:Need for prophylactic vaccination and inoculation against influenza (Renamed from Need for immunization against influenza) Start:12-Jan-2018 Instruction Type:Patient Education How to access health informa tion online - Detail Indication:Need for prophylactic vaccination and inoculation against influenza (Renamed from Need for immunization against influenza) Start:12-Jan-2018 Instruction Type:Patient Education Patient Instructions Indication:Need for prophylactic vaccination and inoculation against influenza (Renamed from Need for immunization against influenza) Start:12-Jan-2018 Instruction Type:Provider Instructions for Treatment How to access health informa tion online Indication:Smoker Start:15-Nov-2017 Instruction Type:Patient Education How to access health informa tion online - Detail Indication:Smoker Start:15-Nov-2017 Instruction Type:Patient Education Patient Instructions Indication:Smoker Start:15-Nov-2017 Instruction Type:Provider Instructions for Treatment How to access health informa tion online Indication:Rash of hands Start:23-Jun-2017 Instruction Type:Patient Education How to access health informa tion online - Detail Indication:Rash of hands Start:23-Jun-2017 Instruction Type:Patient Education Patient Instructions Indication:Rash of hands Start:23-Jun-2017 Instruction Type:Provider Instructions for Treatment How to access health informa tion online Indication:Smoker Start:01-May-2017 Instruction Type:Patient Education How to access health informa tion online - Detail Indication:Smoker Start:01-May-2017 Instruction Type:Patient Education Patient Instructions Indication:Smoker Start:01-May-2017 Instruction Type:Provider Instructions for Treatment How to access health informa tion online Indication:Muscle spasm Start:24-Aug-2016 Instruction Type:Patient Education How to access health informa tion online - Detail Indication:Muscle spasm Start:24-Aug-2016 Instruction Type:Patient Education Patient Instructions Indication:Muscle spasm Start:24-Aug-2016 Instruction Type:Provider Instructions for Treatment How to access health informa tion online Indication:Flu-like symptoms Start:26-Apr-2016 Instruction Type:Patient Education How to access health informa tion online - Detail Indication:Flu-like symptoms Start:26-Apr-2016 Instruction Type:Patient Education Patient Instructions Indication:Flu-like symptoms Start:26-Apr-2016 Instruction Type:Provider Instructions for Treatment How to access health informa tion online Indication:Elevated LFTs Start:22-Jan-2016 Instruction Type:Patient Education How to access health informa tion online - Detail Indication:Elevated LFTs Start:22-Jan-2016 Instruction Type:Patient Education Patient Instructions Indication:Elevated LFTs Start:22-Jan-2016 Instruction Type:Provider Instructions for Treatment How to access health informa tion online Indication:Smoker Start:22-Jan-2016 Instruction Type:Patient Education How to access health informa tion online - Detail Indication:Smoker Start:22-Jan-2016 Instruction Type:Patient Education How to access health informa tion online Indication:Otitis, right Start:04-Dec-2015 Instruction Type:Patient Education How to access health informa tion online - Detail Indication:Otitis, right Start:04-Dec-2015 Instruction Type:Patient Education Patient Instructions Indication:Otitis, right Start:04-Dec-2015 Instruction Type:Provider Instructions for Treatment Patient Instructions Indication:Hyperlipidemia Start:05-Jun-2015 Instruction Type:Provider Instructions for Treatment How to access health informa tion online Indication:Fatty liver Start:30-Jul-2014 Instruction Type:Patient Education How to access health informa tion online - Detail Indication:Fatty liver Start:30-Jul-2014 Instruction Type:Patient Education Patient Instructions Indication:Fatty liver Start:30-Jul-2014 Instruction Type:Provider Instructions for Treatment How to access health informa tion online Indication:Fatty liver Start:30-May-2014 Instruction Type:Patient Education How to access health informa tion online - Detail Indication:Fatty liver Start:30-May-2014 Instruction Type:Patient Education Patient Instructions Indication:Fatty liver Start:30-May-2014 Instruction Type:Provider Instructions for Treatment Patient Instructions Indication:Flank pain Start:31-Jul-2013 Instruction Type:Provider Instructions for Treatment Patient Instructions Indication:Sciatica, unspecified laterality Start:29-Jul-2013 Instruction Type:Provider Instructions for Treatment Patient Instructions Indication:Flank pain Start:29-Jul-2013 Instruction Type:Provider Instructions for Treatment Patient Instructions Indication:Dysthymic Start:18-Jun-2013 Instruction Type:Provider Instructions for Treatment Patient Instructions Indication:Other specified viral infection, in conditions classified elsewhere and of unspecified site Start:08-Feb-2013 Instruction Type:Provider Instructions for Treatment Patient Instructions Indication:Chronic obstructive asthma with acute exacerbation Start:17-Apr-2012 Instruction Type:Provider Instructions for Treatment Patient Instructions: keep w orking on wt loss for fatty liver reasons Indication:Dysthymic Start:08-Dec-2011 Instruction Type:Provider Instructions for Treatment [facility] Work Phone: Instructions* Name Dates Details Patient Instructions Indication:Smoker Start:22-Aug-2022 Instruction Type:Provider Instructions for Treatment How to Access Health Informa tion Online using Patient Portal and [employer]rd [employer] Apps Indication:Smoker Start:22-Aug-2022 Instruction Type:Patient Education Patient Instructions Indication:BMI 29.0-29.9,adult Start:08-Nov-2021 Instruction Type:Provider Instructions for Treatment How to Access Health Informa tion Online using Patient Portal and [employer]rd [employer] Apps Indication:BMI 29.0-29.9,adult Start:08-Nov-2021 Instruction Type:Patient Education Patient Instructions Indication:Smoker Start:02-Aug-2021 Instruction Type:Provider Instructions for Treatment How to Access Health Informa tion Online using Patient Portal and [employer]rd [employer] Apps Indication:Smoker Start:02-Aug-2021 Instruction Type:Patient Education How to Access Health Informa tion Online using Patient Portal and [employer]rd [employer] Apps Indication:Non-smoker Start:07-Aug-2020 Instruction Type:Patient Education Patient Instructions Indication:Non-smoker Start:07-Aug-2020 Instruction Type:Provider Instructions for Treatment How to Access Health Informa tion Online using Patient Portal and [employer]rd [employer] Apps Indication:Smoker Start:29-Jul-2020 Instruction Type:Patient Education Patient Instructions Indication:Smoker Start:29-Jul-2020 Instruction Type:Provider Instructions for Treatment How to access health informa tion online Indication:Smoker Start:24-Jun-2019 Instruction Type:Patient Education How to access health informa tion online - Detail Indication:Smoker Start:24-Jun-2019 Instruction Type:Patient Education Patient Instructions Indication:Smoker Start:24-Jun-2019 Instruction Type:Provider Instructions for Treatment How to access health informa tion online Indication:Smoker Start:19-Jun-2019 Instruction Type:Patient Education How to access health informa tion online - Detail Indication:Smoker Start:19-Jun-2019 Instruction Type:Patient Education Patient Instructions Indication:Smoker Start:19-Jun-2019 Instruction Type:Provider Instructions for Treatment How to access health informa tion online - Detail Indication:Non-smoker Start:23-Apr-2019 Instruction Type:Patient Education How to access health informa tion online Indication:Non-smoker Start:23-Apr-2019 Instruction Type:Patient Education Patient Instructions Indication:Non-smoker Start:23-Apr-2019 Instruction Type:Provider Instructions for Treatment How to access health informa tion online Indication:Non-smoker Start:24-Sep-2018 Instruction Type:Patient Education How to access health informa tion online - Detail Indication:Non-smoker Start:24-Sep-2018 Instruction Type:Patient Education Patient Instructions Indication:Non-smoker Start:24-Sep-2018 Instruction Type:Provider Instructions for Treatment How to access health informa tion online Indication:Smoker Start:21-Sep-2018 Instruction Type:Patient Education How to access health informa tion online - Detail Indication:Smoker Start:21-Sep-2018 Instruction Type:Patient Education Patient Instructions Indication:Smoker Start:21-Sep-2018 Instruction Type:Provider Instructions for Treatment How to access health informa tion online Indication:Smoker Start:20-Mar-2018 Instruction Type:Patient Education How to access health informa tion online - Detail Indication:Smoker Start:20-Mar-2018 Instruction Type:Patient Education Patient Instructions Indication:Body mass index 28.0-28.9, adult Start:20-Mar-2018 Instruction Type:Provider Instructions for Treatment How to access health informa tion online Indication:Need for prophylactic vaccination and inoculation against influenza (Renamed from Need for immunization against influenza) Start:12-Jan-2018 Instruction Type:Patient Education How to access health informa tion online - Detail Indication:Need for prophylactic vaccination and inoculation against influenza (Renamed from Need for immunization against influenza) Start:12-Jan-2018 Instruction Type:Patient Education Patient Instructions Indication:Need for prophylactic vaccination and inoculation against influenza (Renamed from Need for immunization against influenza) Start:12-Jan-2018 Instruction Type:Provider Instructions for Treatment How to access health informa tion online Indication:Smoker Start:15-Nov-2017 Instruction Type:Patient Education How to access health informa tion online - Detail Indication:Smoker Start:15-Nov-2017 Instruction Type:Patient Education Patient Instructions Indication:Smoker Start:15-Nov-2017 Instruction Type:Provider Instructions for Treatment How to access health informa tion online Indication:Rash of hands Start:23-Jun-2017 Instruction Type:Patient Education How to access health informa tion online - Detail Indication:Rash of hands Start:23-Jun-2017 Instruction Type:Patient Education Patient Instructions Indication:Rash of hands Start:23-Jun-2017 Instruction Type:Provider Instructions for Treatment How to access health informa tion online Indication:Smoker Start:01-May-2017 Instruction Type:Patient Education How to access health informa tion online - Detail Indication:Smoker Start:01-May-2017 Instruction Type:Patient Education Patient Instructions Indication:Smoker Start:01-May-2017 Instruction Type:Provider Instructions for Treatment How to access health informa tion online Indication:Muscle spasm Start:24-Aug-2016 Instruction Type:Patient Education How to access health informa tion online - Detail Indication:Muscle spasm Start:24-Aug-2016 Instruction Type:Patient Education Patient Instructions Indication:Muscle spasm Start:24-Aug-2016 Instruction Type:Provider Instructions for Treatment How to access health informa tion online Indication:Flu-like symptoms Start:26-Apr-2016 Instruction Type:Patient Education How to access health informa tion online - Detail Indication:Flu-like symptoms Start:26-Apr-2016 Instruction Type:Patient Education Patient Instructions Indication:Flu-like symptoms Start:26-Apr-2016 Instruction Type:Provider Instructions for Treatment How to access health informa tion online Indication:Elevated LFTs Start:22-Jan-2016 Instruction Type:Patient Education How to access health informa tion online - Detail Indication:Elevated LFTs Start:22-Jan-2016 Instruction Type:Patient Education Patient Instructions Indication:Elevated LFTs Start:22-Jan-2016 Instruction Type:Provider Instructions for Treatment How to access health informa tion online Indication:Smoker Start:22-Jan-2016 Instruction Type:Patient Education How to access health informa tion online - Detail Indication:Smoker Start:22-Jan-2016 Instruction Type:Patient Education How to access health informa tion online Indication:Otitis, right Start:04-Dec-2015 Instruction Type:Patient Education How to access health informa tion online - Detail Indication:Otitis, right Start:04-Dec-2015 Instruction Type:Patient Education Patient Instructions Indication:Otitis, right Start:04-Dec-2015 Instruction Type:Provider Instructions for Treatment Patient Instructions Indication:Hyperlipidemia Start:05-Jun-2015 Instruction Type:Provider Instructions for Treatment How to access health informa tion online Indication:Fatty liver Start:30-Jul-2014 Instruction Type:Patient Education How to access health informa tion online - Detail Indication:Fatty liver Start:30-Jul-2014 Instruction Type:Patient Education Patient Instructions Indication:Fatty liver Start:30-Jul-2014 Instruction Type:Provider Instructions for Treatment How to access health informa tion online Indication:Fatty liver Start:30-May-2014 Instruction Type:Patient Education How to access health informa tion online - Detail Indication:Fatty liver Start:30-May-2014 Instruction Type:Patient Education Patient Instructions Indication:Fatty liver Start:30-May-2014 Instruction Type:Provider Instructions for Treatment Patient Instructions Indication:Flank pain Start:31-Jul-2013 Instruction Type:Provider Instructions for Treatment Patient Instructions Indication:Sciatica, unspecified laterality Start:29-Jul-2013 Instruction Type:Provider Instructions for Treatment Patient Instructions Indication:Flank pain Start:29-Jul-2013 Instruction Type:Provider Instructions for Treatment Patient Instructions Indication:Dysthymic Start:18-Jun-2013 Instruction Type:Provider Instructions for Treatment Patient Instructions Indication:Other specified viral infection, in conditions classified elsewhere and of unspecified site Start:08-Feb-2013 Instruction Type:Provider Instructions for Treatment Patient Instructions Indication:Chronic obstructive asthma with acute exacerbation Start:17-Apr-2012 Instruction Type:Provider Instructions for Treatment Patient Instructions: keep w orking on wt loss for fatty liver reasons Indication:Dysthymic Start:08-Dec-2011 Instruction Type:Provider Instructions for Treatment [facility] Work Phone: reason for referral (narrative)No reason for referral information availableW[facility]: Family History No Family History Records FoundUnknown Family Member Name Dates Details Cancer Comments:Mother Status:Active [place]om[place] Cancer Comments:Father Status:Active Unknown Family Member Name Dates Details Cancer Comments:Mother Status:Active [place] Cancer Comments:Father Status:Active Unknown Family Member Name Dates Details Cancer Comments:Mother Status:Active [place] Cancer Comments:Father Status:Active Unknown Family Member Name Dates Details Cancer Comments:Mother Status:Active [place] Cancer Comments:Father Status:Active Unknown Family Member Name Dates Details Cancer Comments:Mother Status:Active [place] Cancer Comments:Father Status:Active Unknown Family Member Name Dates Details Cancer Comments:Mother Status:Active [place] Cancer Comments:Father Status:Active Unknown Family Member Name Dates Details Cancer Comments:Mother Status:Active [place] Cancer Comments:Father Status:Active Unknown Family Member Name Dates Details Cancer Comments:Mother Status:Active [place] Cancer Comments:Father Status:Active Unknown Family Member Name Dates Details Cancer Comments:Mother Status:Active [place] Cancer Comments:Father Status:Active Unknown Family Member Name Dates Details Cancer Comments:Mother Status:Active [place] Cancer Comments:Father Status:Active Unknown Family Member Name Dates Details Cancer Comments:Mother Status:Active [place] Cancer Comments:Father Status:Active Unknown Family Member Name Dates Details Cancer Comments:Mother Status:Active [place] Cancer Comments:Father Status:Active Unknown Family Member Name Dates Details Cancer Comments:Mother Status:Active [place] Cancer Comments:Father Status:Active Unknown Family Member Name Dates Details Cancer Comments:Mother Status:Active [place] Cancer Comments:Father Status:Active Unknown Family Member Name Dates Details Cancer Comments:Mother Status:Active [place] Cancer Comments:Father Status:Active Unknown Family Member Name Dates Details Cancer Comments:Mother Status:Active [place] Cancer Comments:Father Status:Active Unknown Family Member Name Dates Details Cancer Comments:Mother Status:Active [place] Cancer Comments:Father Status:Active Unknown Family Member Name Dates Details Cancer Comments:Mother Status:Active [place] Cancer Comments:Father Status:Active Unknown Family Member Name Dates Details Cancer Comments:Mother Status:Active [place] Cancer Comments:Father Status:Active Unknown Family Member Name Dates Details Cancer Comments:Mother Status:Active [place] Cancer Comments:Father Status:Active Unknown Family Member Name Dates Details Cancer Comments:Mother Status:Active [place] Cancer Comments:Father Status:Active Unknown Family Member Name Dates Details Cancer Comments:Mother Status:Active [place] Cancer Comments:Father Status:Active Unknown Family Member Name Dates Details Cancer Comments:Mother Status:Active [place] Cancer Comments:Father Status:Active Unknown Family Member Name Dates Details Cancer Comments:Mother Status:Active [place] Cancer Comments:Father Status:Active Unknown Family Member Name Dates Details Cancer Comments:Mother Status:Active [place] Cancer Comments:Father Status:Active Unknown Family Member Name Dates Details Cancer Comments:Mother Status:Active [place] Cancer Comments:Father Status:Active Unknown Family Member Name Dates Details Cancer Comments:Mother Status:Active [place] Cancer Comments:Father Status:Active Unknown Family Member Name Dates Details Cancer Comments:Mother Status:Active [place] Cancer Comments:Father Status:Active Instructions Name Dates Details Need for prophylactic vaccin ation and inoculation against influenza (Renamed from Need for immunization against influenza) : How to access health information online Indication:Need for prophylactic vaccination and inoculation against influenza (Renamed from Need for immunization against influenza) Need for prophylactic vaccin ation and inoculation against influenza (Renamed from Need for immunization against influenza) : How to access health information online - Detail Indication:Need for prophylactic vaccination and inoculation against influenza (Renamed from Need for immunization against influenza) Need for prophylactic vaccin ation and inoculation against influenza (Renamed from Need for immunization against influenza) : Patient Instructions Indication:Need for prophylactic vaccination and inoculation against influenza (Renamed from Need for immunization against influenza) Smoker : How to access healt h information online Indication:Smoker Smoker : How to access healt h information online - Detail Indication:Smoker Smoker : Patient Instruction s Indication:Smoker Rash of hands : How to acces s health information online Indication:Rash of hands Rash of hands : How to acces s health information online - Detail Indication:Rash of hands Rash of hands : Patient Inst ructions Indication:Rash of hands Muscle spasm : How to access health information online Indication:Muscle spasm Muscle spasm : How to access health information online - Detail Indication:Muscle spasm Muscle spasm : Patient Instr uctions Indication:Muscle spasm Flu-like symptoms : How to a ccess health information online Indication:Flu-like symptoms Flu-like symptoms : How to a ccess health information online - Detail Indication:Flu-like symptoms Flu-like symptoms : Patient Instructions Indication:Flu-like symptoms Elevated LFTs : How to acces s health information online Indication:Elevated LFTs Elevated LFTs : How to acces s health information online - Detail Indication:Elevated LFTs Elevated LFTs : Patient Inst ructions Indication:Elevated LFTs Otitis, right : How to acces s health information online Indication:Otitis, right Otitis, right : How to acces s health information online - Detail Indication:Otitis, right Otitis, right : Patient Inst ructions Indication:Otitis, right Hyperlipidemia : Patient Ins tructions Indication:Hyperlipidemia Fatty liver : How to access health information online Indication:Fatty liver Fatty liver : How to access health information online - Detail Indication:Fatty liver Fatty liver : Patient Instru ctions Indication:Fatty liver Flank pain : Patient Instruc tions Indication:Flank pain Sciatica, unspecified latera lity : Patient Instructions Indication:Sciatica, unspecified laterality Dysthymic : Patient Instruct ions Indication:Dysthymic Other specified viral infect ion, in conditions classified elsewhere and of unspecified site : Patient Instructions Indication:Other specified viral infection, in conditions classified elsewhere and of unspecified site Chronic obstructive asthma w ith acute exacerbation : Patient Instructions Indication:Chronic obstructive asthma with acute exacerbation Dysthymic : Patient Instruct ions: keep working on wt loss for fatty liver reasons Indication:Dysthymic Name Dates Details Smoker : How to access [employer] information online Indication:Smoker Smoker : How to access [employer] information online - Detail Indication:Smoker Body mass index 28.0-28.9, a dult : Patient Instructions Indication:Body mass index 28.0-28.9, adult Need for prophylactic vaccin ation and inoculation against influenza (Renamed from Need for immunization against influenza) : How to access health information online Indication:Need for prophylactic vaccination and inoculation against influenza (Renamed from Need for immunization against influenza) Need for prophylactic vaccin ation and inoculation against influenza (Renamed from Need for immunization against influenza) : How to access health information online - Detail Indication:Need for prophylactic vaccination and inoculation against influenza (Renamed from Need for immunization against influenza) Need for prophylactic vaccin ation and inoculation against influenza (Renamed from Need for immunization against influenza) : Patient Instructions Indication:Need for prophylactic vaccination and inoculation against influenza (Renamed from Need for immunization against influenza) Smoker : Patient Instruction s Indication:Smoker Rash of hands : How to acces s health information online Indication:Rash of hands Rash of hands : How to acces s health information online - Detail Indication:Rash of hands Rash of hands : Patient Inst ructions Indication:Rash of hands Muscle spasm : How to access health information online Indication:Muscle spasm Muscle spasm : How to access health information online - Detail Indication:Muscle spasm Muscle spasm : Patient Instr uctions Indication:Muscle spasm Flu-like symptoms : How to a ccess health information online Indication:Flu-like symptoms Flu-like symptoms : How to a ccess health information online - Detail Indication:Flu-like symptoms Flu-like symptoms : Patient Instructions Indication:Flu-like symptoms Elevated LFTs : How to acces s health information online Indication:Elevated LFTs Elevated LFTs : How to acces s health information online - Detail Indication:Elevated LFTs Elevated LFTs : Patient Inst ructions Indication:Elevated LFTs Otitis, right : How to acces s health information online Indication:Otitis, right Otitis, right : How to acces s health information online - Detail Indication:Otitis, right Otitis, right : Patient Inst ructions Indication:Otitis, right Hyperlipidemia : Patient Ins tructions Indication:Hyperlipidemia Fatty liver : How to access health information online Indication:Fatty liver Fatty liver : How to access health information online - Detail Indication:Fatty liver Fatty liver : Patient Instru ctions Indication:Fatty liver Flank pain : Patient Instruc tions Indication:Flank pain Sciatica, unspecified latera lity : Patient Instructions Indication:Sciatica, unspecified laterality Dysthymic : Patient Instruct ions Indication:Dysthymic Other specified viral infect ion, in conditions classified elsewhere and of unspecified site : Patient Instructions Indication:Other specified viral infection, in conditions classified elsewhere and of unspecified site Chronic obstructive asthma w ith acute exacerbation : Patient Instructions Indication:Chronic obstructive asthma with acute exacerbation Dysthymic : Patient Instruct ions: keep working on wt loss for fatty liver reasons Indication:Dysthymic Name Dates Details Smoker : How to access healt h information online Indication:Smoker Smoker : How to access healt h information online - Detail Indication:Smoker Body mass index 28.0-28.9, a dult : Patient Instructions Indication:Body mass index 28.0-28.9, adult Need for prophylactic vaccin ation and inoculation against influenza (Renamed from Need for immunization against influenza) : How to access health information online Indication:Need for prophylactic vaccination and inoculation against influenza (Renamed from Need for immunization against influenza) Need for prophylactic vaccin ation and inoculation against influenza (Renamed from Need for immunization against influenza) : How to access health information online - Detail Indication:Need for prophylactic vaccination and inoculation against influenza (Renamed from Need for immunization against influenza) Need for prophylactic vaccin ation and inoculation against influenza (Renamed from Need for immunization against influenza) : Patient Instructions Indication:Need for prophylactic vaccination and inoculation against influenza (Renamed from Need for immunization against influenza) Smoker : Patient Instruction s Indication:Smoker Rash of hands : How to acces s health information online Indication:Rash of hands Rash of hands : How to acces s health information online - Detail Indication:Rash of hands Rash of hands : Patient Inst ructions Indication:Rash of hands Muscle spasm : How to access health information online Indication:Muscle spasm Muscle spasm : How to access health information online - Detail Indication:Muscle spasm Muscle spasm : Patient Instr uctions Indication:Muscle spasm Flu-like symptoms : How to a ccess health information online Indication:Flu-like symptoms Flu-like symptoms : How to a ccess health information online - Detail Indication:Flu-like symptoms Flu-like symptoms : Patient Instructions Indication:Flu-like symptoms Elevated LFTs : How to acces s health information online Indication:Elevated LFTs Elevated LFTs : How to acces s health information online - Detail Indication:Elevated LFTs Elevated LFTs : Patient Inst ructions Indication:Elevated LFTs Otitis, right : How to acces s health information online Indication:Otitis, right Otitis, right : How to acces s health information online - Detail Indication:Otitis, right Otitis, right : Patient Inst ructions Indication:Otitis, right Hyperlipidemia : Patient Ins tructions Indication:Hyperlipidemia Fatty liver : How to access health information online Indication:Fatty liver Fatty liver : How to access health information online - Detail Indication:Fatty liver Fatty liver : Patient Instru ctions Indication:Fatty liver Flank pain : Patient Instruc tions Indication:Flank pain Sciatica, unspecified latera lity : Patient Instructions Indication:Sciatica, unspecified laterality Dysthymic : Patient Instruct ions Indication:Dysthymic Other specified viral infect ion, in conditions classified elsewhere and of unspecified site : Patient Instructions Indication:Other specified viral infection, in conditions classified elsewhere and of unspecified site Chronic obstructive asthma w ith acute exacerbation : Patient Instructions Indication:Chronic obstructive asthma with acute exacerbation Dysthymic : Patient Instruct ions: keep working on wt loss for fatty liver reasons Indication:Dysthymic Name Dates Details Smoker : How to access healt h information online Indication:Smoker Smoker : How to access healt h information online - Detail Indication:Smoker Body mass index 28.0-28.9, a dult : Patient Instructions Indication:Body mass index 28.0-28.9, adult Need for prophylactic vaccin ation and inoculation against influenza (Renamed from Need for immunization against influenza) : How to access health information online Indication:Need for prophylactic vaccination and inoculation against influenza (Renamed from Need for immunization against influenza) Need for prophylactic vaccin ation and inoculation against influenza (Renamed from Need for immunization against influenza) : How to access health information online - Detail Indication:Need for prophylactic vaccination and inoculation against influenza (Renamed from Need for immunization against influenza) Need for prophylactic vaccin ation and inoculation against influenza (Renamed from Need for immunization against influenza) : Patient Instructions Indication:Need for prophylactic vaccination and inoculation against influenza (Renamed from Need for immunization against influenza) Smoker : Patient Instruction s Indication:Smoker Rash of hands : How to acces s health information online Indication:Rash of hands Rash of hands : How to acces s health information online - Detail Indication:Rash of hands Rash of hands : Patient Inst ructions Indication:Rash of hands Muscle spasm : How to access health information online Indication:Muscle spasm Muscle spasm : How to access health information online - Detail Indication:Muscle spasm Muscle spasm : Patient Instr uctions Indication:Muscle spasm Flu-like symptoms : How to a ccess health information online Indication:Flu-like symptoms Flu-like symptoms : How to a ccess health information online - Detail Indication:Flu-like symptoms Flu-like symptoms : Patient Instructions Indication:Flu-like symptoms Elevated LFTs : How to acces s health information online Indication:Elevated LFTs Elevated LFTs : How to acces s health information online - Detail Indication:Elevated LFTs Elevated LFTs : Patient Inst ructions Indication:Elevated LFTs Otitis, right : How to acces s health information online Indication:Otitis, right Otitis, right : How to acces s health information online - Detail Indication:Otitis, right Otitis, right : Patient Inst ructions Indication:Otitis, right Hyperlipidemia : Patient Ins tructions Indication:Hyperlipidemia Fatty liver : How to access health information online Indication:Fatty liver Fatty liver : How to access health information online - Detail Indication:Fatty liver Fatty liver : Patient Instru ctions Indication:Fatty liver Flank pain : Patient Instruc tions Indication:Flank pain Sciatica, unspecified latera lity : Patient Instructions Indication:Sciatica, unspecified laterality Dysthymic : Patient Instruct ions Indication:Dysthymic Other specified viral infect ion, in conditions classified elsewhere and of unspecified site : Patient Instructions Indication:Other specified viral infection, in conditions classified elsewhere and of unspecified site Chronic obstructive asthma w ith acute exacerbation : Patient Instructions Indication:Chronic obstructive asthma with acute exacerbation Dysthymic : Patient Instruct ions: keep working on wt loss for fatty liver reasons Indication:Dysthymic Name Dates Details Smoker : How to access healt h information online Indication:Smoker Smoker : How to access healt h information online - Detail Indication:Smoker Body mass index 28.0-28.9, a dult : Patient Instructions Indication:Body mass index 28.0-28.9, adult Need for prophylactic vaccin ation and inoculation against influenza (Renamed from Need for immunization against influenza) : How to access health information online Indication:Need for prophylactic vaccination and inoculation against influenza (Renamed from Need for immunization against influenza) Need for prophylactic vaccin ation and inoculation against influenza (Renamed from Need for immunization against influenza) : How to access health information online - Detail Indication:Need for prophylactic vaccination and inoculation against influenza (Renamed from Need for immunization against influenza) Need for prophylactic vaccin ation and inoculation against influenza (Renamed from Need for immunization against influenza) : Patient Instructions Indication:Need for prophylactic vaccination and inoculation against influenza (Renamed from Need for immunization against influenza) Smoker : Patient Instruction s Indication:Smoker Rash of hands : How to [facility] health information online Indication:Rash of hands Rash of hands : How to [facility] health information online - Detail Indication:Rash of hands Rash of hands : Patient Inst ructions Indication:Rash of hands Muscle spasm : How to access health information online Indication:Muscle spasm Muscle spasm : How to access health information online - Detail Indication:Muscle spasm Muscle spasm : Patient Instr uctions Indication:Muscle spasm Flu-like symptoms : How to a ccess health information online Indication:Flu-like symptoms Flu-like symptoms : How to a ccess health information online - Detail Indication:Flu-like symptoms Flu-like symptoms : Patient Instructions Indication:Flu-like symptoms Elevated LFTs : How to [facility] health information online Indication:Elevated LFTs Elevated LFTs : How to [facility] health information online - Detail Indication:Elevated LFTs Elevated LFTs : Patient Inst ructions Indication:Elevated LFTs Otitis, right : How to acces s health information online Indication:Otitis, right Otitis, right : How to acces s health information online - Detail Indication:Otitis, right Otitis, right : Patient Inst ructions Indication:Otitis, right Hyperlipidemia : Patient Ins tructions Indication:Hyperlipidemia Fatty liver : How to access health information online Indication:Fatty liver Fatty liver : How to access health information online - Detail Indication:Fatty liver Fatty liver : Patient Instru ctions Indication:Fatty liver Flank pain : Patient Instruc tions Indication:Flank pain Sciatica, unspecified latera lity : Patient Instructions Indication:Sciatica, unspecified laterality Dysthymic : Patient Instruct ions Indication:Dysthymic Other specified viral infect ion, in conditions classified elsewhere and of unspecified site : Patient Instructions Indication:Other specified viral infection, in conditions classified elsewhere and of unspecified site Chronic obstructive asthma w ith acute exacerbation : Patient Instructions Indication:Chronic obstructive asthma with acute exacerbation Dysthymic : Patient Instruct ions: keep working on wt loss for fatty liver reasons Indication:Dysthymic Name Dates Details How to access health informa tion online Indication:Smoker Start:20-Mar-2018 Instruction Type:Patient Education How to access health informa tion online - Detail Indication:Smoker Start:20-Mar-2018 Instruction Type:Patient Education Patient Instructions Indication:Body mass index 28.0-28.9, adult Start:20-Mar-2018 Instruction Type:Provider Instructions for Treatment How to access health informa tion online Indication:Need for prophylactic vaccination and inoculation against influenza (Renamed from Need for immunization against influenza) Start:12-Jan-2018 Instruction Type:Patient Education How to access health informa tion online - Detail Indication:Need for prophylactic vaccination and inoculation against influenza (Renamed from Need for immunization against influenza) Start:12-Jan-2018 Instruction Type:Patient Education Patient Instructions Indication:Need for prophylactic vaccination and inoculation against influenza (Renamed from Need for immunization against influenza) Start:12-Jan-2018 Instruction Type:Provider Instructions for Treatment How to access health informa tion online Indication:Smoker Start:15-Nov-2017 Instruction Type:Patient Education How to access health informa tion online - Detail Indication:Smoker Start:15-Nov-2017 Instruction Type:Patient Education Patient Instructions Indication:Smoker Start:15-Nov-2017 Instruction Type:Provider Instructions for Treatment How to access health informa tion online Indication:Rash of hands Start:23-Jun-2017 Instruction Type:Patient Education How to access health informa tion online - Detail Indication:Rash of hands Start:23-Jun-2017 Instruction Type:Patient Education Patient Instructions Indication:Rash of hands Start:23-Jun-2017 Instruction Type:Provider Instructions for Treatment How to access health informa tion online Indication:Smoker Start:01-May-2017 Instruction Type:Patient Education How to access health informa tion online - Detail Indication:Smoker Start:01-May-2017 Instruction Type:Patient Education Patient Instructions Indication:Smoker Start:01-May-2017 Instruction Type:Provider Instructions for Treatment How to access health informa tion online Indication:Muscle spasm Start:24-Aug-2016 Instruction Type:Patient Education How to access health informa tion online - Detail Indication:Muscle spasm Start:24-Aug-2016 Instruction Type:Patient Education Patient Instructions Indication:Muscle spasm Start:24-Aug-2016 Instruction Type:Provider Instructions for Treatment How to access health informa tion online Indication:Flu-like symptoms Start:26-Apr-2016 Instruction Type:Patient Education How to access health informa tion online - Detail Indication:Flu-like symptoms Start:26-Apr-2016 Instruction Type:Patient Education Patient Instructions Indication:Flu-like symptoms Start:26-Apr-2016 Instruction Type:Provider Instructions for Treatment How to access health informa tion online Indication:Elevated LFTs Start:22-Jan-2016 Instruction Type:Patient Education How to access health informa tion online - Detail Indication:Elevated LFTs Start:22-Jan-2016 Instruction Type:Patient Education Patient Instructions Indication:Elevated LFTs Start:22-Jan-2016 Instruction Type:Provider Instructions for Treatment How to access health informa tion online Indication:Smoker Start:22-Jan-2016 Instruction Type:Patient Education How to access health informa tion online - Detail Indication:Smoker Start:22-Jan-2016 Instruction Type:Patient Education How to access health informa tion online Indication:Otitis, right Start:04-Dec-2015 Instruction Type:Patient Education How to access health informa tion online - Detail Indication:Otitis, right Start:04-Dec-2015 Instruction Type:Patient Education Patient Instructions Indication:Otitis, right Start:04-Dec-2015 Instruction Type:Provider Instructions for Treatment Patient Instructions Indication:Hyperlipidemia Start:05-Jun-2015 Instruction Type:Provider Instructions for Treatment How to access health informa tion online Indication:Fatty liver Start:30-Jul-2014 Instruction Type:Patient Education How to access health informa tion online - Detail Indication:Fatty liver Start:30-Jul-2014 Instruction Type:Patient Education Patient Instructions Indication:Fatty liver Start:30-Jul-2014 Instruction Type:Provider Instructions for Treatment How to access health informa tion online Indication:Fatty liver Start:30-May-2014 Instruction Type:Patient Education How to access health informa [employer] online - Detail Indication:Fatty liver Start:30-May-2014 Instruction Type:Patient Education Patient Instructions Indication:Fatty liver Start:30-May-2014 Instruction Type:Provider Instructions for Treatment Patient Instructions Indication:Flank pain Start:31-Jul-2013 Instruction Type:Provider Instructions for Treatment Patient Instructions Indication:Sciatica, unspecified laterality Start:29-Jul-2013 Instruction Type:Provider Instructions for Treatment Patient Instructions Indication:Flank pain Start:29-Jul-2013 Instruction Type:Provider Instructions for Treatment Patient Instructions Indication:Dysthymic Start:18-Jun-2013 Instruction Type:Provider Instructions for Treatment Patient Instructions Indication:Other specified viral infection, in conditions classified elsewhere and of unspecified site Start:08-Feb-2013 Instruction Type:Provider Instructions for Treatment Patient Instructions Indication:Chronic obstructive asthma with acute exacerbation Start:17-Apr-2012 Instruction Type:Provider Instructions for Treatment Patient Instructions: keep w orking on wt loss for fatty liver reasons Indication:Dysthymic Start:08-Dec-2011 Instruction Type:Provider Instructions for Treatment Name Dates Details How to access [facility] [employer] Indication:Smoker Start:21-Sep-2018 Instruction Type:Patient Education How to access health informa [employer] online - Detail Indication:Smoker Start:21-Sep-2018 Instruction Type:Patient Education Patient Instructions Indication:Smoker Start:21-Sep-2018 Instruction Type:Provider Instructions for Treatment How to access health [employer] online Indication:Smoker Start:20-Mar-2018 Instruction Type:Patient Education How to access health informa [employer] online - Detail Indication:Smoker Start:20-Mar-2018 Instruction Type:Patient Education Patient Instructions Indication:Body mass index 28.0-28.9, adult Start:20-Mar-2018 Instruction Type:Provider Instructions for Treatment How to access health informa [employer] online Indication:Need for prophylactic vaccination and inoculation against influenza (Renamed from Need for immunization against influenza) Start:12-Jan-2018 Instruction Type:Patient Education How to access health informa tion online - Detail Indication:Need for prophylactic vaccination and inoculation against influenza (Renamed from Need for immunization against influenza) Start:12-Jan-2018 Instruction Type:Patient Education Patient Instructions Indication:Need for prophylactic vaccination and inoculation against influenza (Renamed from Need for immunization against influenza) Start:12-Jan-2018 Instruction Type:Provider Instructions for Treatment How to access health informa tion online Indication:Smoker Start:15-Nov-2017 Instruction Type:Patient Education How to access health informa tion online - Detail Indication:Smoker Start:15-Nov-2017 Instruction Type:Patient Education Patient Instructions Indication:Smoker Start:15-Nov-2017 Instruction Type:Provider Instructions for Treatment How to access health informa tion online Indication:Rash of hands Start:23-Jun-2017 Instruction Type:Patient Education How to access health informa tion online - Detail Indication:Rash of hands Start:23-Jun-2017 Instruction Type:Patient Education Patient Instructions Indication:Rash of hands Start:23-Jun-2017 Instruction Type:Provider Instructions for Treatment How to access health informa tion online Indication:Smoker Start:01-May-2017 Instruction Type:Patient Education How to access health informa tion online - Detail Indication:Smoker Start:01-May-2017 Instruction Type:Patient Education Patient Instructions Indication:Smoker Start:01-May-2017 Instruction Type:Provider Instructions for Treatment How to access health informa tion online Indication:Muscle spasm Start:24-Aug-2016 Instruction Type:Patient Education How to access health informa tion online - Detail Indication:Muscle spasm Start:24-Aug-2016 Instruction Type:Patient Education Patient Instructions Indication:Muscle spasm Start:24-Aug-2016 Instruction Type:Provider Instructions for Treatment How to access health informa tion online Indication:Flu-like symptoms Start:26-Apr-2016 Instruction Type:Patient Education How to access health informa tion online - Detail Indication:Flu-like symptoms Start:26-Apr-2016 Instruction Type:Patient Education Patient Instructions Indication:Flu-like symptoms Start:26-Apr-2016 Instruction Type:Provider Instructions for Treatment How to access health informa tion online Indication:Elevated LFTs Start:22-Jan-2016 Instruction Type:Patient Education How to access health informa tion online - Detail Indication:Elevated LFTs Start:22-Jan-2016 Instruction Type:Patient Education Patient Instructions Indication:Elevated LFTs Start:22-Jan-2016 Instruction Type:Provider Instructions for Treatment How to access health informa tion online Indication:Smoker Start:22-Jan-2016 Instruction Type:Patient Education How to access health informa tion online - Detail Indication:Smoker Start:22-Jan-2016 Instruction Type:Patient Education How to access health informa tion online Indication:Otitis, right Start:04-Dec-2015 Instruction Type:Patient Education How to access health informa tion online - Detail Indication:Otitis, right Start:04-Dec-2015 Instruction Type:Patient Education Patient Instructions Indication:Otitis, right Start:04-Dec-2015 Instruction Type:Provider Instructions for Treatment Patient Instructions Indication:Hyperlipidemia Start:05-Jun-2015 Instruction Type:Provider Instructions for Treatment How to access health informa tion online Indication:Fatty liver Start:30-Jul-2014 Instruction Type:Patient Education How to access health informa tion online - Detail Indication:Fatty liver Start:30-Jul-2014 Instruction Type:Patient Education Patient Instructions Indication:Fatty liver Start:30-Jul-2014 Instruction Type:Provider Instructions for Treatment How to access health informa tion online Indication:Fatty liver Start:30-May-2014 Instruction Type:Patient Education How to access health informa tion online - Detail Indication:Fatty liver Start:30-May-2014 Instruction Type:Patient Education Patient Instructions Indication:Fatty liver Start:30-May-2014 Instruction Type:Provider Instructions for Treatment Patient Instructions Indication:Flank pain Start:31-Jul-2013 Instruction Type:Provider Instructions for Treatment Patient Instructions Indication:Sciatica, unspecified laterality Start:29-Jul-2013 Instruction Type:Provider Instructions for Treatment Patient Instructions Indication:Flank pain Start:29-Jul-2013 Instruction Type:Provider Instructions for Treatment Patient Instructions Indication:Dysthymic Start:18-Jun-2013 Instruction Type:Provider Instructions for Treatment Patient Instructions Indication:Other specified viral infection, in conditions classified elsewhere and of unspecified site Start:08-Feb-2013 Instruction Type:Provider Instructions for Treatment Patient Instructions Indication:Chronic obstructive asthma with acute exacerbation Start:17-Apr-2012 Instruction Type:Provider Instructions for Treatment Patient Instructions: keep w orking on wt loss for fatty liver reasons Indication:Dysthymic Start:08-Dec-2011 Instruction Type:Provider Instructions for Treatment Name Dates Details How to access health informa tion online Indication:Non-smoker Start:24-Sep-2018 Instruction Type:Patient Education How to access health informa tion online - Detail Indication:Non-smoker Start:24-Sep-2018 Instruction Type:Patient Education Patient Instructions Indication:Non-smoker Start:24-Sep-2018 Instruction Type:Provider Instructions for Treatment How to access health informa tion online Indication:Smoker Start:21-Sep-2018 Instruction Type:Patient Education How to access health informa tion online - Detail Indication:Smoker Start:21-Sep-2018 Instruction Type:Patient Education Patient Instructions Indication:Smoker Start:21-Sep-2018 Instruction Type:Provider Instructions for Treatment How to access health informa tion online Indication:Smoker Start:20-Mar-2018 Instruction Type:Patient Education How to access health informa tion online - Detail Indication:Smoker Start:20-Mar-2018 Instruction Type:Patient Education Patient Instructions Indication:Body mass index 28.0-28.9, adult Start:20-Mar-2018 Instruction Type:Provider Instructions for Treatment How to access health informa tion online Indication:Need for prophylactic vaccination and inoculation against influenza (Renamed from Need for immunization against influenza) Start:12-Jan-2018 Instruction Type:Patient Education How to access health informa tion online - Detail Indication:Need for prophylactic vaccination and inoculation against influenza (Renamed from Need for immunization against influenza) Start:12-Jan-2018 Instruction Type:Patient Education Patient Instructions Indication:Need for prophylactic vaccination and inoculation against influenza (Renamed from Need for immunization against influenza) Start:12-Jan-2018 Instruction Type:Provider Instructions for Treatment How to access health informa tion online Indication:Smoker Start:15-Nov-2017 Instruction Type:Patient Education How to access health informa tion online - Detail Indication:Smoker Start:15-Nov-2017 Instruction Type:Patient Education Patient Instructions Indication:Smoker Start:15-Nov-2017 Instruction Type:Provider Instructions for Treatment How to access health informa tion online Indication:Rash of hands Start:23-Jun-2017 Instruction Type:Patient Education How to access health informa tion online - Detail Indication:Rash of hands Start:23-Jun-2017 Instruction Type:Patient Education Patient Instructions Indication:Rash of hands Start:23-Jun-2017 Instruction Type:Provider Instructions for Treatment How to access health informa tion online Indication:Smoker Start:01-May-2017 Instruction Type:Patient Education How to access health informa tion online - Detail Indication:Smoker Start:01-May-2017 Instruction Type:Patient Education Patient Instructions Indication:Smoker Start:01-May-2017 Instruction Type:Provider Instructions for Treatment How to access health informa tion online Indication:Muscle spasm Start:24-Aug-2016 Instruction Type:Patient Education How to access health informa tion online - Detail Indication:Muscle spasm Start:24-Aug-2016 Instruction Type:Patient Education Patient Instructions Indication:Muscle spasm Start:24-Aug-2016 Instruction Type:Provider Instructions for Treatment How to access health informa tion online Indication:Flu-like symptoms Start:26-Apr-2016 Instruction Type:Patient Education How to access health informa tion online - Detail Indication:Flu-like symptoms Start:26-Apr-2016 Instruction Type:Patient Education Patient Instructions Indication:Flu-like symptoms Start:26-Apr-2016 Instruction Type:Provider Instructions for Treatment How to access health informa tion online Indication:Elevated LFTs Start:22-Jan-2016 Instruction Type:Patient Education How to access health informa tion online - Detail Indication:Elevated LFTs Start:22-Jan-2016 Instruction Type:Patient Education Patient Instructions Indication:Elevated LFTs Start:22-Jan-2016 Instruction Type:Provider Instructions for Treatment How to access health informa tion online Indication:Smoker Start:22-Jan-2016 Instruction Type:Patient Education How to access health informa tion online - Detail Indication:Smoker Start:22-Jan-2016 Instruction Type:Patient Education How to access health informa tion online Indication:Otitis, right Start:04-Dec-2015 Instruction Type:Patient Education How to access health informa tion online - Detail Indication:Otitis, right Start:04-Dec-2015 Instruction Type:Patient Education Patient Instructions Indication:Otitis, right Start:04-Dec-2015 Instruction Type:Provider Instructions for Treatment Patient Instructions Indication:Hyperlipidemia Start:05-Jun-2015 Instruction Type:Provider Instructions for Treatment How to access health informa tion online Indication:Fatty liver Start:30-Jul-2014 Instruction Type:Patient Education How to access health informa tion online - Detail Indication:Fatty liver Start:30-Jul-2014 Instruction Type:Patient Education Patient Instructions Indication:Fatty liver Start:30-Jul-2014 Instruction Type:Provider Instructions for Treatment How to access health informa tion online Indication:Fatty liver Start:30-May-2014 Instruction Type:Patient Education How to access health informa tion online - Detail Indication:Fatty liver Start:30-May-2014 Instruction Type:Patient Education Patient Instructions Indication:Fatty liver Start:30-May-2014 Instruction Type:Provider Instructions for Treatment Patient Instructions Indication:Flank pain Start:31-Jul-2013 Instruction Type:Provider Instructions for Treatment Patient Instructions Indication:Sciatica, unspecified laterality Start:29-Jul-2013 Instruction Type:Provider Instructions for Treatment Patient Instructions Indication:Flank pain Start:29-Jul-2013 Instruction Type:Provider Instructions for Treatment Patient Instructions Indication:Dysthymic Start:18-Jun-2013 Instruction Type:Provider Instructions for Treatment Patient Instructions Indication:Other specified viral infection, in conditions classified elsewhere and of unspecified site Start:08-Feb-2013 Instruction Type:Provider Instructions for Treatment Patient Instructions Indication:Chronic obstructive asthma with acute exacerbation Start:17-Apr-2012 Instruction Type:Provider Instructions for Treatment Patient Instructions: keep w orking on wt loss for fatty liver reasons Indication:Dysthymic Start:08-Dec-2011 Instruction Type:Provider Instructions for Treatment Name Dates Details How to access health informa tion online Indication:Non-smoker Start:24-Sep-2018 Instruction Type:Patient Education How to access health informa tion online - Detail Indication:Non-smoker Start:24-Sep-2018 Instruction Type:Patient Education Patient Instructions Indication:Non-smoker Start:24-Sep-2018 Instruction Type:Provider Instructions for Treatment How to access health informa tion online Indication:Smoker Start:21-Sep-2018 Instruction Type:Patient Education How to access health informa tion online - Detail Indication:Smoker Start:21-Sep-2018 Instruction Type:Patient Education Patient Instructions Indication:Smoker Start:21-Sep-2018 Instruction Type:Provider Instructions for Treatment How to access health informa tion online Indication:Smoker Start:20-Mar-2018 Instruction Type:Patient Education How to access health informa tion online - Detail Indication:Smoker Start:20-Mar-2018 Instruction Type:Patient Education Patient Instructions Indication:Body mass index 28.0-28.9, adult Start:20-Mar-2018 Instruction Type:Provider Instructions for Treatment How to access health informa tion online Indication:Need for prophylactic vaccination and inoculation against influenza (Renamed from Need for immunization against influenza) Start:12-Jan-2018 Instruction Type:Patient Education How to access health informa tion online - Detail Indication:Need for prophylactic vaccination and inoculation against influenza (Renamed from Need for immunization against influenza) Start:12-Jan-2018 Instruction Type:Patient Education Patient Instructions Indication:Need for prophylactic vaccination and inoculation against influenza (Renamed from Need for immunization against influenza) Start:12-Jan-2018 Instruction Type:Provider Instructions for Treatment How to access health informa tion online Indication:Smoker Start:15-Nov-2017 Instruction Type:Patient Education How to access health informa tion online - Detail Indication:Smoker Start:15-Nov-2017 Instruction Type:Patient Education Patient Instructions Indication:Smoker Start:15-Nov-2017 Instruction Type:Provider Instructions for Treatment How to access health informa tion online Indication:Rash of hands Start:23-Jun-2017 Instruction Type:Patient Education How to access health informa tion online - Detail Indication:Rash of hands Start:23-Jun-2017 Instruction Type:Patient Education Patient Instructions Indication:Rash of hands Start:23-Jun-2017 Instruction Type:Provider Instructions for Treatment How to access health informa tion online Indication:Smoker Start:01-May-2017 Instruction Type:Patient Education How to access health informa tion online - Detail Indication:Smoker Start:01-May-2017 Instruction Type:Patient Education Patient Instructions Indication:Smoker Start:01-May-2017 Instruction Type:Provider Instructions for Treatment How to access health informa tion online Indication:Muscle spasm Start:24-Aug-2016 Instruction Type:Patient Education How to access health informa tion online - Detail Indication:Muscle spasm Start:24-Aug-2016 Instruction Type:Patient Education Patient Instructions Indication:Muscle spasm Start:24-Aug-2016 Instruction Type:Provider Instructions for Treatment How to access health informa tion online Indication:Flu-like symptoms Start:26-Apr-2016 Instruction Type:Patient Education How to access health informa tion online - Detail Indication:Flu-like symptoms Start:26-Apr-2016 Instruction Type:Patient Education Patient Instructions Indication:Flu-like symptoms Start:26-Apr-2016 Instruction Type:Provider Instructions for Treatment How to access health informa tion online Indication:Elevated LFTs Start:22-Jan-2016 Instruction Type:Patient Education How to access health informa tion online - Detail Indication:Elevated LFTs Start:22-Jan-2016 Instruction Type:Patient Education Patient Instructions Indication:Elevated LFTs Start:22-Jan-2016 Instruction Type:Provider Instructions for Treatment How to access health informa tion online Indication:Smoker Start:22-Jan-2016 Instruction Type:Patient Education How to access health informa tion online - Detail Indication:Smoker Start:22-Jan-2016 Instruction Type:Patient Education How to access health informa tion online Indication:Otitis, right Start:04-Dec-2015 Instruction Type:Patient Education How to access health informa tion online - Detail Indication:Otitis, right Start:04-Dec-2015 Instruction Type:Patient Education Patient Instructions Indication:Otitis, right Start:04-Dec-2015 Instruction Type:Provider Instructions for Treatment Patient Instructions Indication:Hyperlipidemia Start:05-Jun-2015 Instruction Type:Provider Instructions for Treatment How to access health informa tion online Indication:Fatty liver Start:30-Jul-2014 Instruction Type:Patient Education How to access health informa tion online - Detail Indication:Fatty liver Start:30-Jul-2014 Instruction Type:Patient Education Patient Instructions Indication:Fatty liver Start:30-Jul-2014 Instruction Type:Provider Instructions for Treatment How to access health informa tion online Indication:Fatty liver Start:30-May-2014 Instruction Type:Patient Education How to access health informa tion online - Detail Indication:Fatty liver Start:30-May-2014 Instruction Type:Patient Education Patient Instructions Indication:Fatty liver Start:30-May-2014 Instruction Type:Provider Instructions for Treatment Patient Instructions Indication:Flank pain Start:31-Jul-2013 Instruction Type:Provider Instructions for Treatment Patient Instructions Indication:Sciatica, unspecified laterality Start:29-Jul-2013 Instruction Type:Provider Instructions for Treatment Patient Instructions Indication:Flank pain Start:29-Jul-2013 Instruction Type:Provider Instructions for Treatment Patient Instructions Indication:Dysthymic Start:18-Jun-2013 Instruction Type:Provider Instructions for Treatment Patient Instructions Indication:Other specified viral infection, in conditions classified elsewhere and of unspecified site Start:08-Feb-2013 Instruction Type:Provider Instructions for Treatment Patient Instructions Indication:Chronic obstructive asthma with acute exacerbation Start:17-Apr-2012 Instruction Type:Provider Instructions for Treatment Patient Instructions: keep w orking on wt loss for fatty liver reasons Indication:Dysthymic Start:08-Dec-2011 Instruction Type:Provider Instructions for Treatment Name Dates Details How to access health informa tion online Indication:Smoker Start:24-Jun-2019 Instruction Type:Patient Education How to access health informa tion online - Detail Indication:Smoker Start:24-Jun-2019 Instruction Type:Patient Education Patient Instructions Indication:Smoker Start:24-Jun-2019 Instruction Type:Provider Instructions for Treatment How to access health informa tion online Indication:Smoker Start:19-Jun-2019 Instruction Type:Patient Education How to access health informa tion online - Detail Indication:Smoker Start:19-Jun-2019 Instruction Type:Patient Education Patient Instructions Indication:Smoker Start:19-Jun-2019 Instruction Type:Provider Instructions for Treatment How to access health informa tion online - Detail Indication:Non-smoker Start:23-Apr-2019 Instruction Type:Patient Education How to access health informa tion online Indication:Non-smoker Start:23-Apr-2019 Instruction Type:Patient Education Patient Instructions Indication:Non-smoker Start:23-Apr-2019 Instruction Type:Provider Instructions for Treatment How to access health informa tion online Indication:Non-smoker Start:24-Sep-2018 Instruction Type:Patient Education How to access health informa tion online - Detail Indication:Non-smoker Start:24-Sep-2018 Instruction Type:Patient Education Patient Instructions Indication:Non-smoker Start:24-Sep-2018 Instruction Type:Provider Instructions for Treatment How to access health informa tion online Indication:Smoker Start:21-Sep-2018 Instruction Type:Patient Education How to access health informa tion online - Detail Indication:Smoker Start:21-Sep-2018 Instruction Type:Patient Education Patient Instructions Indication:Smoker Start:21-Sep-2018 Instruction Type:Provider Instructions for Treatment How to access health informa tion online Indication:Smoker Start:20-Mar-2018 Instruction Type:Patient Education How to access health informa tion online - Detail Indication:Smoker Start:20-Mar-2018 Instruction Type:Patient Education Patient Instructions Indication:Body mass index 28.0-28.9, adult Start:20-Mar-2018 Instruction Type:Provider Instructions for Treatment How to access health informa tion online Indication:Need for prophylactic vaccination and inoculation against influenza (Renamed from Need for immunization against influenza) Start:12-Jan-2018 Instruction Type:Patient Education How to access health informa tion online - Detail Indication:Need for prophylactic vaccination and inoculation against influenza (Renamed from Need for immunization against influenza) Start:12-Jan-2018 Instruction Type:Patient Education Patient Instructions Indication:Need for prophylactic vaccination and inoculation against influenza (Renamed from Need for immunization against influenza) Start:12-Jan-2018 Instruction Type:Provider Instructions for Treatment How to access health informa tion online Indication:Smoker Start:15-Nov-2017 Instruction Type:Patient Education How to access health informa tion online - Detail Indication:Smoker Start:15-Nov-2017 Instruction Type:Patient Education Patient Instructions Indication:Smoker Start:15-Nov-2017 Instruction Type:Provider Instructions for Treatment How to access health informa tion online Indication:Rash of hands Start:23-Jun-2017 Instruction Type:Patient Education How to access health informa tion online - Detail Indication:Rash of hands Start:23-Jun-2017 Instruction Type:Patient Education Patient Instructions Indication:Rash of hands Start:23-Jun-2017 Instruction Type:Provider Instructions for Treatment How to access health informa tion online Indication:Smoker Start:01-May-2017 Instruction Type:Patient Education How to access health informa tion online - Detail Indication:Smoker Start:01-May-2017 Instruction Type:Patient Education Patient Instructions Indication:Smoker Start:01-May-2017 Instruction Type:Provider Instructions for Treatment How to access health informa tion online Indication:Muscle spasm Start:24-Aug-2016 Instruction Type:Patient Education How to access health informa tion online - Detail Indication:Muscle spasm Start:24-Aug-2016 Instruction Type:Patient Education Patient Instructions Indication:Muscle spasm Start:24-Aug-2016 Instruction Type:Provider Instructions for Treatment How to access health informa tion online Indication:Flu-like symptoms Start:26-Apr-2016 Instruction Type:Patient Education How to access health informa tion online - Detail Indication:Flu-like symptoms Start:26-Apr-2016 Instruction Type:Patient Education Patient Instructions Indication:Flu-like symptoms Start:26-Apr-2016 Instruction Type:Provider Instructions for Treatment How to access health informa tion online Indication:Elevated LFTs Start:22-Jan-2016 Instruction Type:Patient Education How to access health informa tion online - Detail Indication:Elevated LFTs Start:22-Jan-2016 Instruction Type:Patient Education Patient Instructions Indication:Elevated LFTs Start:22-Jan-2016 Instruction Type:Provider Instructions for Treatment How to access health informa tion online Indication:Smoker Start:22-Jan-2016 Instruction Type:Patient Education How to access health informa tion online - Detail Indication:Smoker Start:22-Jan-2016 Instruction Type:Patient Education How to access health informa tion online Indication:Otitis, right Start:04-Dec-2015 Instruction Type:Patient Education How to access health informa tion online - Detail Indication:Otitis, right Start:04-Dec-2015 Instruction Type:Patient Education Patient Instructions Indication:Otitis, right Start:04-Dec-2015 Instruction Type:Provider Instructions for Treatment Patient Instructions Indication:Hyperlipidemia Start:05-Jun-2015 Instruction Type:Provider Instructions for Treatment How to access health informa tion online Indication:Fatty liver Start:30-Jul-2014 Instruction Type:Patient Education How to access health informa tion online - Detail Indication:Fatty liver Start:30-Jul-2014 Instruction Type:Patient Education Patient Instructions Indication:Fatty liver Start:30-Jul-2014 Instruction Type:Provider Instructions for Treatment How to access health informa tion online Indication:Fatty liver Start:30-May-2014 Instruction Type:Patient Education How to access health informa tion online - Detail Indication:Fatty liver Start:30-May-2014 Instruction Type:Patient Education Patient Instructions Indication:Fatty liver Start:30-May-2014 Instruction Type:Provider Instructions for Treatment Patient Instructions Indication:Flank pain Start:31-Jul-2013 Instruction Type:Provider Instructions for Treatment Patient Instructions Indication:Sciatica, unspecified laterality Start:29-Jul-2013 Instruction Type:Provider Instructions for Treatment Patient Instructions Indication:Flank pain Start:29-Jul-2013 Instruction Type:Provider Instructions for Treatment Patient Instructions Indication:Dysthymic Start:18-Jun-2013 Instruction Type:Provider Instructions for Treatment Patient Instructions Indication:Other specified viral infection, in conditions classified elsewhere and of unspecified site Start:08-Feb-2013 Instruction Type:Provider Instructions for Treatment Patient Instructions Indication:Chronic obstructive asthma with acute exacerbation Start:17-Apr-2012 Instruction Type:Provider Instructions for Treatment Patient Instructions: keep w orking on wt loss for fatty liver reasons Indication:Dysthymic Start:08-Dec-2011 Instruction Type:Provider Instructions for Treatment Name Dates Details How to access health informa tion online Indication:Non-smoker Start:24-Sep-2018 Instruction Type:Patient Education How to access health informa tion online - Detail Indication:Non-smoker Start:24-Sep-2018 Instruction Type:Patient Education Patient Instructions Indication:Non-smoker Start:24-Sep-2018 Instruction Type:Provider Instructions for Treatment How to access health informa tion online Indication:Smoker Start:21-Sep-2018 Instruction Type:Patient Education How to access health informa tion online - Detail Indication:Smoker Start:21-Sep-2018 Instruction Type:Patient Education Patient Instructions Indication:Smoker Start:21-Sep-2018 Instruction Type:Provider Instructions for Treatment How to access health informa tion online Indication:Smoker Start:20-Mar-2018 Instruction Type:Patient Education How to access health informa tion online - Detail Indication:Smoker Start:20-Mar-2018 Instruction Type:Patient Education Patient Instructions Indication:Body mass index 28.0-28.9, adult Start:20-Mar-2018 Instruction Type:Provider Instructions for Treatment How to access health informa tion online Indication:Need for prophylactic vaccination and inoculation against influenza (Renamed from Need for immunization against influenza) Start:12-Jan-2018 Instruction Type:Patient Education How to access health informa tion online - Detail Indication:Need for prophylactic vaccination and inoculation against influenza (Renamed from Need for immunization against influenza) Start:12-Jan-2018 Instruction Type:Patient Education Patient Instructions Indication:Need for prophylactic vaccination and inoculation against influenza (Renamed from Need for immunization against influenza) Start:12-Jan-2018 Instruction Type:Provider Instructions for Treatment How to access health informa tion online Indication:Smoker Start:15-Nov-2017 Instruction Type:Patient Education How to access health informa tion online - Detail Indication:Smoker Start:15-Nov-2017 Instruction Type:Patient Education Patient Instructions Indication:Smoker Start:15-Nov-2017 Instruction Type:Provider Instructions for Treatment How to access health informa tion online Indication:Rash of hands Start:23-Jun-2017 Instruction Type:Patient Education How to access health informa tion online - Detail Indication:Rash of hands Start:23-Jun-2017 Instruction Type:Patient Education Patient Instructions Indication:Rash of hands Start:23-Jun-2017 Instruction Type:Provider Instructions for Treatment How to access health informa tion online Indication:Smoker Start:01-May-2017 Instruction Type:Patient Education How to access health informa tion online - Detail Indication:Smoker Start:01-May-2017 Instruction Type:Patient Education Patient Instructions Indication:Smoker Start:01-May-2017 Instruction Type:Provider Instructions for Treatment How to access health informa tion online Indication:Muscle spasm Start:24-Aug-2016 Instruction Type:Patient Education How to access health informa tion online - Detail Indication:Muscle spasm Start:24-Aug-2016 Instruction Type:Patient Education Patient Instructions Indication:Muscle spasm Start:24-Aug-2016 Instruction Type:Provider Instructions for Treatment How to access health informa tion online Indication:Flu-like symptoms Start:26-Apr-2016 Instruction Type:Patient Education How to access health informa tion online - Detail Indication:Flu-like symptoms Start:26-Apr-2016 Instruction Type:Patient Education Patient Instructions Indication:Flu-like symptoms Start:26-Apr-2016 Instruction Type:Provider Instructions for Treatment How to access health informa tion online Indication:Elevated LFTs Start:22-Jan-2016 Instruction Type:Patient Education How to access health informa tion online - Detail Indication:Elevated LFTs Start:22-Jan-2016 Instruction Type:Patient Education Patient Instructions Indication:Elevated LFTs Start:22-Jan-2016 Instruction Type:Provider Instructions for Treatment How to access health informa tion online Indication:Smoker Start:22-Jan-2016 Instruction Type:Patient Education How to access health informa tion online - Detail Indication:Smoker Start:22-Jan-2016 Instruction Type:Patient Education How to access health informa tion online Indication:Otitis, right Start:04-Dec-2015 Instruction Type:Patient Education How to access health informa tion online - Detail Indication:Otitis, right Start:04-Dec-2015 Instruction Type:Patient Education Patient Instructions Indication:Otitis, right Start:04-Dec-2015 Instruction Type:Provider Instructions for Treatment Patient Instructions Indication:Hyperlipidemia Start:05-Jun-2015 Instruction Type:Provider Instructions for Treatment How to access health informa tion online Indication:Fatty liver Start:30-Jul-2014 Instruction Type:Patient Education How to access health informa tion online - Detail Indication:Fatty liver Start:30-Jul-2014 Instruction Type:Patient Education Patient Instructions Indication:Fatty liver Start:30-Jul-2014 Instruction Type:Provider Instructions for Treatment How to access health informa tion online Indication:Fatty liver Start:30-May-2014 Instruction Type:Patient Education How to access health informa tion online - Detail Indication:Fatty liver Start:30-May-2014 Instruction Type:Patient Education Patient Instructions Indication:Fatty liver Start:30-May-2014 Instruction Type:Provider Instructions for Treatment Patient Instructions Indication:Flank pain Start:31-Jul-2013 Instruction Type:Provider Instructions for Treatment Patient Instructions Indication:Sciatica, unspecified laterality Start:29-Jul-2013 Instruction Type:Provider Instructions for Treatment Patient Instructions Indication:Flank pain Start:29-Jul-2013 Instruction Type:Provider Instructions for Treatment Patient Instructions Indication:Dysthymic Start:18-Jun-2013 Instruction Type:Provider Instructions for Treatment Patient Instructions Indication:Other specified viral infection, in conditions classified elsewhere and of unspecified site Start:08-Feb-2013 Instruction Type:Provider Instructions for Treatment Patient Instructions Indication:Chronic obstructive asthma with acute exacerbation Start:17-Apr-2012 Instruction Type:Provider Instructions for Treatment Patient Instructions: keep w orking on wt loss for fatty liver reasons Indication:Dysthymic Start:08-Dec-2011 Instruction Type:Provider Instructions for Treatment Name Dates Details How to access health informa tion online Indication:Non-smoker Start:24-Sep-2018 Instruction Type:Patient Education How to access health informa tion online - Detail Indication:Non-smoker Start:24-Sep-2018 Instruction Type:Patient Education Patient Instructions Indication:Non-smoker Start:24-Sep-2018 Instruction Type:Provider Instructions for Treatment How to access health informa tion online Indication:Smoker Start:21-Sep-2018 Instruction Type:Patient Education How to access health informa tion online - Detail Indication:Smoker Start:21-Sep-2018 Instruction Type:Patient Education Patient Instructions Indication:Smoker Start:21-Sep-2018 Instruction Type:Provider Instructions for Treatment How to access health informa tion online Indication:Smoker Start:20-Mar-2018 Instruction Type:Patient Education How to access health informa tion online - Detail Indication:Smoker Start:20-Mar-2018 Instruction Type:Patient Education Patient Instructions Indication:Body mass index 28.0-28.9, adult Start:20-Mar-2018 Instruction Type:Provider Instructions for Treatment How to access health informa tion online Indication:Need for prophylactic vaccination and inoculation against influenza (Renamed from Need for immunization against influenza) Start:12-Jan-2018 Instruction Type:Patient Education How to access health informa tion online - Detail Indication:Need for prophylactic vaccination and inoculation against influenza (Renamed from Need for immunization against influenza) Start:12-Jan-2018 Instruction Type:Patient Education Patient Instructions Indication:Need for prophylactic vaccination and inoculation against influenza (Renamed from Need for immunization against influenza) Start:12-Jan-2018 Instruction Type:Provider Instructions for Treatment How to access health informa tion online Indication:Smoker Start:15-Nov-2017 Instruction Type:Patient Education How to access health informa tion online - Detail Indication:Smoker Start:15-Nov-2017 Instruction Type:Patient Education Patient Instructions Indication:Smoker Start:15-Nov-2017 Instruction Type:Provider Instructions for Treatment How to access health informa tion online Indication:Rash of hands Start:23-Jun-2017 Instruction Type:Patient Education How to access health informa tion online - Detail Indication:Rash of hands Start:23-Jun-2017 Instruction Type:Patient Education Patient Instructions Indication:Rash of hands Start:23-Jun-2017 Instruction Type:Provider Instructions for Treatment How to access health informa tion online Indication:Smoker Start:01-May-2017 Instruction Type:Patient Education How to access health informa tion online - Detail Indication:Smoker Start:01-May-2017 Instruction Type:Patient Education Patient Instructions Indication:Smoker Start:01-May-2017 Instruction Type:Provider Instructions for Treatment How to access health informa tion online Indication:Muscle spasm Start:24-Aug-2016 Instruction Type:Patient Education How to access health informa tion online - Detail Indication:Muscle spasm Start:24-Aug-2016 Instruction Type:Patient Education Patient Instructions Indication:Muscle spasm Start:24-Aug-2016 Instruction Type:Provider Instructions for Treatment How to access health informa tion online Indication:Flu-like symptoms Start:26-Apr-2016 Instruction Type:Patient Education How to access health informa tion online - Detail Indication:Flu-like symptoms Start:26-Apr-2016 Instruction Type:Patient Education Patient Instructions Indication:Flu-like symptoms Start:26-Apr-2016 Instruction Type:Provider Instructions for Treatment How to access health informa tion online Indication:Elevated LFTs Start:22-Jan-2016 Instruction Type:Patient Education How to access health informa tion online - Detail Indication:Elevated LFTs Start:22-Jan-2016 Instruction Type:Patient Education Patient Instructions Indication:Elevated LFTs Start:22-Jan-2016 Instruction Type:Provider Instructions for Treatment How to access health informa tion online Indication:Smoker Start:22-Jan-2016 Instruction Type:Patient Education How to access health informa tion online - Detail Indication:Smoker Start:22-Jan-2016 Instruction Type:Patient Education How to access health informa tion online Indication:Otitis, right Start:04-Dec-2015 Instruction Type:Patient Education How to access health informa tion online - Detail Indication:Otitis, right Start:04-Dec-2015 Instruction Type:Patient Education Patient Instructions Indication:Otitis, right Start:04-Dec-2015 Instruction Type:Provider Instructions for Treatment Patient Instructions Indication:Hyperlipidemia Start:05-Jun-2015 Instruction Type:Provider Instructions for Treatment How to access health informa tion online Indication:Fatty liver Start:30-Jul-2014 Instruction Type:Patient Education How to access health informa tion online - Detail Indication:Fatty liver Start:30-Jul-2014 Instruction Type:Patient Education Patient Instructions Indication:Fatty liver Start:30-Jul-2014 Instruction Type:Provider Instructions for Treatment How to access health informa tion online Indication:Fatty liver Start:30-May-2014 Instruction Type:Patient Education How to access health informa tion online - Detail Indication:Fatty liver Start:30-May-2014 Instruction Type:Patient Education Patient Instructions Indication:Fatty liver Start:30-May-2014 Instruction Type:Provider Instructions for Treatment Patient Instructions Indication:Flank pain Start:31-Jul-2013 Instruction Type:Provider Instructions for Treatment Patient Instructions Indication:Sciatica, unspecified laterality Start:29-Jul-2013 Instruction Type:Provider Instructions for Treatment Patient Instructions Indication:Flank pain Start:29-Jul-2013 Instruction Type:Provider Instructions for Treatment Patient Instructions Indication:Dysthymic Start:18-Jun-2013 Instruction Type:Provider Instructions for Treatment Patient Instructions Indication:Other specified viral infection, in conditions classified elsewhere and of unspecified site Start:08-Feb-2013 Instruction Type:Provider Instructions for Treatment Patient Instructions Indication:Chronic obstructive asthma with acute exacerbation Start:17-Apr-2012 Instruction Type:Provider Instructions for Treatment Patient Instructions: keep w orking on wt loss for fatty liver reasons Indication:Dysthymic Start:08-Dec-2011 Instruction Type:Provider Instructions for Treatment Name Dates Details How to access health informa tion online Indication:Smoker Start:24-Jun-2019 Instruction Type:Patient Education How to access health informa tion online - Detail Indication:Smoker Start:24-Jun-2019 Instruction Type:Patient Education Patient Instructions Indication:Smoker Start:24-Jun-2019 Instruction Type:Provider Instructions for Treatment How to access health informa tion online Indication:Smoker Start:19-Jun-2019 Instruction Type:Patient Education How to access health informa tion online - Detail Indication:Smoker Start:19-Jun-2019 Instruction Type:Patient Education Patient Instructions Indication:Smoker Start:19-Jun-2019 Instruction Type:Provider Instructions for Treatment How to access health informa tion online - Detail Indication:Non-smoker Start:23-Apr-2019 Instruction Type:Patient Education How to access health informa tion online Indication:Non-smoker Start:23-Apr-2019 Instruction Type:Patient Education Patient Instructions Indication:Non-smoker Start:23-Apr-2019 Instruction Type:Provider Instructions for Treatment How to access health informa tion online Indication:Non-smoker Start:24-Sep-2018 Instruction Type:Patient Education How to access health informa tion online - Detail Indication:Non-smoker Start:24-Sep-2018 Instruction Type:Patient Education Patient Instructions Indication:Non-smoker Start:24-Sep-2018 Instruction Type:Provider Instructions for Treatment How to access health informa tion online Indication:Smoker Start:21-Sep-2018 Instruction Type:Patient Education How to access health informa tion online - Detail Indication:Smoker Start:21-Sep-2018 Instruction Type:Patient Education Patient Instructions Indication:Smoker Start:21-Sep-2018 Instruction Type:Provider Instructions for Treatment How to access health informa tion online Indication:Smoker Start:20-Mar-2018 Instruction Type:Patient Education How to access health informa tion online - Detail Indication:Smoker Start:20-Mar-2018 Instruction Type:Patient Education Patient Instructions Indication:Body mass index 28.0-28.9, adult Start:20-Mar-2018 Instruction Type:Provider Instructions for Treatment How to access health informa tion online Indication:Need for prophylactic vaccination and inoculation against influenza (Renamed from Need for immunization against influenza) Start:12-Jan-2018 Instruction Type:Patient Education How to access health informa tion online - Detail Indication:Need for prophylactic vaccination and inoculation against influenza (Renamed from Need for immunization against influenza) Start:12-Jan-2018 Instruction Type:Patient Education Patient Instructions Indication:Need for prophylactic vaccination and inoculation against influenza (Renamed from Need for immunization against influenza) Start:12-Jan-2018 Instruction Type:Provider Instructions for Treatment How to access health informa tion online Indication:Smoker Start:15-Nov-2017 Instruction Type:Patient Education How to access health informa tion online - Detail Indication:Smoker Start:15-Nov-2017 Instruction Type:Patient Education Patient Instructions Indication:Smoker Start:15-Nov-2017 Instruction Type:Provider Instructions for Treatment How to access health informa tion online Indication:Rash of hands Start:23-Jun-2017 Instruction Type:Patient Education How to access health informa tion online - Detail Indication:Rash of hands Start:23-Jun-2017 Instruction Type:Patient Education Patient Instructions Indication:Rash of hands Start:23-Jun-2017 Instruction Type:Provider Instructions for Treatment How to access health informa tion online Indication:Smoker Start:01-May-2017 Instruction Type:Patient Education How to access health informa tion online - Detail Indication:Smoker Start:01-May-2017 Instruction Type:Patient Education Patient Instructions Indication:Smoker Start:01-May-2017 Instruction Type:Provider Instructions for Treatment How to access health informa tion online Indication:Muscle spasm Start:24-Aug-2016 Instruction Type:Patient Education How to access health informa tion online - Detail Indication:Muscle spasm Start:24-Aug-2016 Instruction Type:Patient Education Patient Instructions Indication:Muscle spasm Start:24-Aug-2016 Instruction Type:Provider Instructions for Treatment How to access health informa tion online Indication:Flu-like symptoms Start:26-Apr-2016 Instruction Type:Patient Education How to access health informa tion online - Detail Indication:Flu-like symptoms Start:26-Apr-2016 Instruction Type:Patient Education Patient Instructions Indication:Flu-like symptoms Start:26-Apr-2016 Instruction Type:Provider Instructions for Treatment How to access health informa tion online Indication:Elevated LFTs Start:22-Jan-2016 Instruction Type:Patient Education How to access health informa tion online - Detail Indication:Elevated LFTs Start:22-Jan-2016 Instruction Type:Patient Education Patient Instructions Indication:Elevated LFTs Start:22-Jan-2016 Instruction Type:Provider Instructions for Treatment How to access health informa tion online Indication:Smoker Start:22-Jan-2016 Instruction Type:Patient Education How to access health informa tion online - Detail Indication:Smoker Start:22-Jan-2016 Instruction Type:Patient Education How to access health informa tion online Indication:Otitis, right Start:04-Dec-2015 Instruction Type:Patient Education How to access health informa tion online - Detail Indication:Otitis, right Start:04-Dec-2015 Instruction Type:Patient Education Patient Instructions Indication:Otitis, right Start:04-Dec-2015 Instruction Type:Provider Instructions for Treatment Patient Instructions Indication:Hyperlipidemia Start:05-Jun-2015 Instruction Type:Provider Instructions for Treatment How to access health informa tion online Indication:Fatty liver Start:30-Jul-2014 Instruction Type:Patient Education How to access health informa tion online - Detail Indication:Fatty liver Start:30-Jul-2014 Instruction Type:Patient Education Patient Instructions Indication:Fatty liver Start:30-Jul-2014 Instruction Type:Provider Instructions for Treatment How to access health informa tion online Indication:Fatty liver Start:30-May-2014 Instruction Type:Patient Education How to access health informa tion online - Detail Indication:Fatty liver Start:30-May-2014 Instruction Type:Patient Education Patient Instructions Indication:Fatty liver Start:30-May-2014 Instruction Type:Provider Instructions for Treatment Patient Instructions Indication:Flank pain Start:31-Jul-2013 Instruction Type:Provider Instructions for Treatment Patient Instructions Indication:Sciatica, unspecified laterality Start:29-Jul-2013 Instruction Type:Provider Instructions for Treatment Patient Instructions Indication:Flank pain Start:29-Jul-2013 Instruction Type:Provider Instructions for Treatment Patient Instructions Indication:Dysthymic Start:18-Jun-2013 Instruction Type:Provider Instructions for Treatment Patient Instructions Indication:Other specified viral infection, in conditions classified elsewhere and of unspecified site Start:08-Feb-2013 Instruction Type:Provider Instructions for Treatment Patient Instructions Indication:Chronic obstructive asthma with acute exacerbation Start:17-Apr-2012 Instruction Type:Provider Instructions for Treatment Patient Instructions: keep w orking on wt loss for fatty liver reasons Indication:Dysthymic Start:08-Dec-2011 Instruction Type:Provider Instructions for Treatment Name Dates Details How to access health informa tion online Indication:Smoker Start:24-Jun-2019 Instruction Type:Patient Education How to access health informa tion online - Detail Indication:Smoker Start:24-Jun-2019 Instruction Type:Patient Education Patient Instructions Indication:Smoker Start:24-Jun-2019 Instruction Type:Provider Instructions for Treatment How to access health informa tion online Indication:Smoker Start:19-Jun-2019 Instruction Type:Patient Education How to access health informa tion online - Detail Indication:Smoker Start:19-Jun-2019 Instruction Type:Patient Education Patient Instructions Indication:Smoker Start:19-Jun-2019 Instruction Type:Provider Instructions for Treatment How to access health informa tion online - Detail Indication:Non-smoker Start:23-Apr-2019 Instruction Type:Patient Education How to access health informa tion online Indication:Non-smoker Start:23-Apr-2019 Instruction Type:Patient Education Patient Instructions Indication:Non-smoker Start:23-Apr-2019 Instruction Type:Provider Instructions for Treatment How to access health informa tion online Indication:Non-smoker Start:24-Sep-2018 Instruction Type:Patient Education How to access health informa tion online - Detail Indication:Non-smoker Start:24-Sep-2018 Instruction Type:Patient Education Patient Instructions Indication:Non-smoker Start:24-Sep-2018 Instruction Type:Provider Instructions for Treatment How to access health informa tion online Indication:Smoker Start:21-Sep-2018 Instruction Type:Patient Education How to access health informa tion online - Detail Indication:Smoker Start:21-Sep-2018 Instruction Type:Patient Education Patient Instructions Indication:Smoker Start:21-Sep-2018 Instruction Type:Provider Instructions for Treatment How to access health informa tion online Indication:Smoker Start:20-Mar-2018 Instruction Type:Patient Education How to access health informa tion online - Detail Indication:Smoker Start:20-Mar-2018 Instruction Type:Patient Education Patient Instructions Indication:Body mass index 28.0-28.9, adult Start:20-Mar-2018 Instruction Type:Provider Instructions for Treatment How to access health informa tion online Indication:Need for prophylactic vaccination and inoculation against influenza (Renamed from Need for immunization against influenza) Start:12-Jan-2018 Instruction Type:Patient Education How to access health informa tion online - Detail Indication:Need for prophylactic vaccination and inoculation against influenza (Renamed from Need for immunization against influenza) Start:12-Jan-2018 Instruction Type:Patient Education Patient Instructions Indication:Need for prophylactic vaccination and inoculation against influenza (Renamed from Need for immunization against influenza) Start:12-Jan-2018 Instruction Type:Provider Instructions for Treatment How to access health informa tion online Indication:Smoker Start:15-Nov-2017 Instruction Type:Patient Education How to access health informa tion online - Detail Indication:Smoker Start:15-Nov-2017 Instruction Type:Patient Education Patient Instructions Indication:Smoker Start:15-Nov-2017 Instruction Type:Provider Instructions for Treatment How to access health informa tion online Indication:Rash of hands Start:23-Jun-2017 Instruction Type:Patient Education How to access health informa tion online - Detail Indication:Rash of hands Start:23-Jun-2017 Instruction Type:Patient Education Patient Instructions Indication:Rash of hands Start:23-Jun-2017 Instruction Type:Provider Instructions for Treatment How to access health informa tion online Indication:Smoker Start:01-May-2017 Instruction Type:Patient Education How to access health informa tion online - Detail Indication:Smoker Start:01-May-2017 Instruction Type:Patient Education Patient Instructions Indication:Smoker Start:01-May-2017 Instruction Type:Provider Instructions for Treatment How to access health informa tion online Indication:Muscle spasm Start:24-Aug-2016 Instruction Type:Patient Education How to access health informa tion online - Detail Indication:Muscle spasm Start:24-Aug-2016 Instruction Type:Patient Education Patient Instructions Indication:Muscle spasm Start:24-Aug-2016 Instruction Type:Provider Instructions for Treatment How to access health informa tion online Indication:Flu-like symptoms Start:26-Apr-2016 Instruction Type:Patient Education How to access health informa tion online - Detail Indication:Flu-like symptoms Start:26-Apr-2016 Instruction Type:Patient Education Patient Instructions Indication:Flu-like symptoms Start:26-Apr-2016 Instruction Type:Provider Instructions for Treatment How to access health informa tion online Indication:Elevated LFTs Start:22-Jan-2016 Instruction Type:Patient Education How to access health informa tion online - Detail Indication:Elevated LFTs Start:22-Jan-2016 Instruction Type:Patient Education Patient Instructions Indication:Elevated LFTs Start:22-Jan-2016 Instruction Type:Provider Instructions for Treatment How to access health informa tion online Indication:Smoker Start:22-Jan-2016 Instruction Type:Patient Education How to access health informa tion online - Detail Indication:Smoker Start:22-Jan-2016 Instruction Type:Patient Education How to access health informa tion online Indication:Otitis, right Start:04-Dec-2015 Instruction Type:Patient Education How to access health informa tion online - Detail Indication:Otitis, right Start:04-Dec-2015 Instruction Type:Patient Education Patient Instructions Indication:Otitis, right Start:04-Dec-2015 Instruction Type:Provider Instructions for Treatment Patient Instructions Indication:Hyperlipidemia Start:05-Jun-2015 Instruction Type:Provider Instructions for Treatment How to access health informa tion online Indication:Fatty liver Start:30-Jul-2014 Instruction Type:Patient Education How to access health informa tion online - Detail Indication:Fatty liver Start:30-Jul-2014 Instruction Type:Patient Education Patient Instructions Indication:Fatty liver Start:30-Jul-2014 Instruction Type:Provider Instructions for Treatment How to access health informa tion online Indication:Fatty liver Start:30-May-2014 Instruction Type:Patient Education How to access health informa tion online - Detail Indication:Fatty liver Start:30-May-2014 Instruction Type:Patient Education Patient Instructions Indication:Fatty liver Start:30-May-2014 Instruction Type:Provider Instructions for Treatment Patient Instructions Indication:Flank pain Start:31-Jul-2013 Instruction Type:Provider Instructions for Treatment Patient Instructions Indication:Sciatica, unspecified laterality Start:29-Jul-2013 Instruction Type:Provider Instructions for Treatment Patient Instructions Indication:Flank pain Start:29-Jul-2013 Instruction Type:Provider Instructions for Treatment Patient Instructions Indication:Dysthymic Start:18-Jun-2013 Instruction Type:Provider Instructions for Treatment Patient Instructions Indication:Other specified viral infection, in conditions classified elsewhere and of unspecified site Start:08-Feb-2013 Instruction Type:Provider Instructions for Treatment Patient Instructions Indication:Chronic obstructive asthma with acute exacerbation Start:17-Apr-2012 Instruction Type:Provider Instructions for Treatment Patient Instructions: keep w orking on wt loss for fatty liver reasons Indication:Dysthymic Start:08-Dec-2011 Instruction Type:Provider Instructions for Treatment Summary Purpose Advance Directives No Advanced Directives Records FoundNo Advanced Directives Records FoundNo Advanced Directives Records Found Chief Complaint and Reason for Visit Chief Complaint Admit Date Other chronic sinusitis May 15 3:35pm XRAY June 25, 2024 8:3 6am FASTING August 20, 2024 7:10a m Chief Complaint Admit Date XRAY June 25, 2024 8:3 6am FASTING August 20, 2024 7:10a m COPD September 24, 2024 7:51 am COPD September 24, 2024 8:13 am Additional Source Comments (unrecognized sect ion and content) No Status Records FoundNo Status Records FoundNo Status Records Found INFORMATION SOURCE (unrecogn ized section and content) DATE CREATED AUTHOR 08/16/2022 [facility] DATE CREATED AUTHOR AUTHOR'S ORGANIZ ATION 06/13/2024 [facility] DATE CREATED AUTHOR AUTHOR'S ORGANIZ ATION 10/01/2024 [facility] Reason for Visit (unrecogniz ed section and content) Reason Comments Referral Sinus Cyst Care Teams (unrecognized sec tion and content) Boarder Machine Relationship Specialty Start Date End Date Brittani Shepherd DO [id number] [facility] [address] [place] [address] PCP - General Internal Medicine 06/11/24 Team Status: Active Member Role Status Dates Dr. Brittani Shepherd DO Primary Care Provider Active Team Status: Inactive Member Role Status Dates Dr. Brittani Shepherd DO Primary Care Provider Active Start: May 15, 2024 End: May 15, 2024 Dr. Dago Antony MD Attending Provider Activ e Start: May 15, 2024 End: May 15, 2024 Dr. Dago Antony MD Referring Provider Activ e Start: May 15, 2024 End: May 15, 2024 Team Status: Inactive Member Role Status Dates Dr. Brittani Shepherd DO Primary Care Provider Active Start: June 25, 2024 End: June 25, 2024 Dr. Mark Gómez MD Attending Provider Active S tart: June 25, 2024 End: June 25, 2024 Team Status: Inactive Member Role Status Dates Dr. Brittani Shepherd DO Primary Care Provider Active Start: August 20, 2024 End: August 20, 2024 Dr. Brittani Shepherd DO Attending Provider Active Start: August 20, 2024 End: August 20, 2024 Dr. Brittani Shepherd DO Referring Provider Active Start: August 20, 2024 End: August 20, 2024 Team Status: Inactive Member Role Status Dates Dr. Brittani Shepherd DO Primary Care Provider Active Start: September 24, 2024 End: September 24, 2024 Dr. Brittani Shepherd DO Attending Provider Active Start: September 24, 2024 End: September 24, 2024 Dr. Brittani Shepherd DO Referring Provider Active Start: September 24, 2024 End: September 24, 2024 Team Status: Active Member Role Status Dates Dr. Brittani Shepherd , DO Primary Care Provider Active Start: September 24, 2024 Dr. Brittani Shepherd , DO Referring Provider Active Start: September 24, 2024 Dr. Ismael Cox , DO Attending Provider Active S tart: September 24, 2024 Goals (unrecognized section and content) Goals may be documented in a n alternate sectionGoals may be documented in an alternate section FOR RECORDS PERTAINING TO PATIENTS WHO ARE OR HAVE BEEN ENROLLED IN A CHEMICAL DEPENDENCY/SUBSTANCEABUSE PROGRAM, SOME INFORMATION MAY BE OMITTED. This clinical summary was aggregated from multiple sources. Caution should be exercised in using it in the provision of clinical care. This summary normalizes information from multiple sources, and as a consequence, information in this document may materially change the coding, format and clinical context of patient data. In addition, data may be omitted in some cases. CLINICAL DECISIONS SHOULD BE BASED ON THE PRIMARY CLINICAL RECORDS. [employer] [facility] provides no warranty or guarantee of the accuracy or completeness of information in this document.
[2025-02-25 10:36] LABS: AST(SGOT) 41 U/L (<=37); Alanine Aminotransfer ALT/SGPT 41 U/L (<=46); Albumin, Serum 4.4 g/dL (3.5-5.0); Alkaline Phosphatase 40 U/L (40-129); Bilirubin, Direct 0.15 mg/dL (0.00-0.30); Cholesterol 120 mg/dL (<=200); Globulin 2.3 g/dL (2.2-4.2); Low Density Lipoprotein Calc. 64 mg/dL; Triglycerides 87 mg/dL; Very Low Density Lipoprotein 17 mg/dL (5-40); cholesterol:hdl ratio screen 3.06
== END | disposition home or self-care (01) ==
PROVIDERS: PCP Internal Medicine; Referring Provider Internal Medicine; Visit Provider Internal Medicine
DX: E78.1 Pure hyperglyceridemia (principal)
CPT/HCPCS: 36415; 80061; 80076